=== PATIENT | female | born 2000 | race Caucasian/White ===

== ENCOUNTER 2023-05-19 16:24 | Outpatient (OUT) | payer MEDICAID, SELFPAY | END 2023-05-19 16:25 | disposition home or self-care (01) | LOC: LAB 16:30 | PROVIDERS: PCP Nurse Practitioner Primary Care; Visit Provider Obstetrics & Gynecology | DX: N92.6 Irregular menstruation, unspecified (principal) | CPT/HCPCS: 36415; 84702 ==

== ENCOUNTER 2023-06-20 10:40 | Outpatient (OUT) | payer MEDICAID, SELFPAY ==
--- NOTE | 2023-06-20 10:41 | US_ITS ---
[address] [address] Patient Name: JULIANA MICHELE MRN: [id number] date: 2000 Sex: F Assigned Patient Location: US Current Patient Location: LAB Accession/Order Number: [id number] Exam Date: 06/20/2023 10:41 Report Date: 06/20/2023 12:14 At the request of: LEA MATSON Procedure: US OB transvaginal EXAMINATION: US OB transvaginal HISTORY: MISSED MENSES COMPARISON: No relevant comparison available. FINDINGS: Cotto intrauterine gestation Gestational sac: 5.0 cm, 10 weeks 5 days CRL: 4.77 cm, 11 weeks 4 days Yolk sac: 5.8 mm Heart rate: 100 Cervix: Closed, 5.2 cm The uterus is normal, anteverted, anteflexed The ovaries are normal Clinical age: 9 weeks 4 days Clinical GILBERTO: 01/19/2024 Ultrasound age: 11 weeks 4 days Ultrasound GILBERTO: 01/05/2024 US/US OB transvaginal IMPRESSION: Viable cotto intrauterine gestation measuring 11 weeks 4 days Electronically authenticated by: BETTYE MICHELLE Date: 06/20/2023 12:14
== END 2023-06-20 10:41 | disposition home or self-care (01) ==
LOC: US 10:40
PROVIDERS: PCP Nurse Practitioner Primary Care; Visit Provider Obstetrics & Gynecology
DX: Z34.91 Encounter for supervision of normal pregnancy, unspecified, first trimester (principal); Z3A.11 11 weeks gestation of pregnancy
CPT/HCPCS: 36415; 76817; 83036; 84443; 85025; 86592; 86762; 86803; 86850; 86900; 86901; 87086; 87150; 87186; 87340; 87389

== ENCOUNTER 2023-06-20 11:38 | Outpatient (OUT) | payer MEDICAID, SELFPAY ==
[2023-06-20 12:20] LABS: Basophils Percent Auto 0.4 % (0.2-2.0); Eosinophils Absolute Auto 0.2 10^3/uL (0.0-0.7); Eosinophils Percent Auto 1.6 % (0.9-7.0); Hematocrit 38.7 % (36.0-48.0); Immature Granulocytes Abs Auto 0.04 10^3/uL (0.00-0.03); Immature Granulocytes Pct Auto 0.4 % (0.0-0.5); Lymphocytes Absolute Auto 2.6 10^3/uL (1.2-3.8); Lymphocytes Percent Auto 26.7 % (20.5-60.0); Mean Corpuscular Hemoglobin 23.4 pg (26.7-34.0); Mean Corpuscular Volume 75.6 fL (81.0-99.0); Mean Platelet Volume 10.3 fL (9.5-13.5); Monocytes Absolute Auto 0.6 10^3/uL (0.3-0.8); Monocytes Percent Auto 5.8 % (1.7-12.0); Neutrophils Absolute Auto 6.3 10^3/uL (1.4-6.5); Neutrophils Percent Auto 65.1 % (43.0-75.0); Platelet Count 365 10^3/uL (150-450); Red Blood Count 5.12 10^6/uL (4.20-5.40); Red Cell Distribution Width 15.9 % (11.0-15.0); White Blood Count 9.7 10^3/uL (4.0-11.0)
[2023-06-20 12:42] LABS: Estimated Average Glucose 108 mg/dL; Glycohemoglobin A1C 5.4 % (4.5-6.2)
[2023-06-20 12:50] LABS: Thyroid Stimulating Hormone 0.708 uIU/mL (0.358-3.740)
[2023-06-21 06:09] LABS: HBsAg Screen Negative (Negative); HCV Ab Non Reactive (Non Reactive); HIV Ab/p24 Ag Screen Non Reactive (Non Reactive)
[2023-06-21 07:09] LABS: Rubella Antibodies, IgG 2.23 index (Immune >0.99)
[2023-06-21 11:11] LABS: Rapid Plasma Reagin, Quant Non Reactive titer (NonRea<1:1)
== END 2023-06-20 11:39 | disposition home or self-care (01) ==
LOC: LAB 11:38
PROVIDERS: PCP Nurse Practitioner Primary Care; Visit Provider Obstetrics & Gynecology
DX: Z34.80 Encounter for supervision of other normal pregnancy, unspecified trimester (principal)
CPT/HCPCS: 36415; 83036; 84443; 85025; 86592; 86762; 86803; 86850; 86900; 86901; 87086; 87150; 87186; 87340; 87389

== ENCOUNTER 2023-07-23 21:29 | Outpatient (REF) | payer MEDICAID, SELFPAY ==
--- OUTSIDE RECORDS SUMMARY | 2023-07-23 21:34 | XMS_ITS | CCD ---
Author Name Unknown Address [address] [facility] [address] [place] [address] Organization [facility] Care Team Providers Care Top Trimmer Name Role Phone PAULO ., DR GRIGGS Admitting Unavailabl e HOY ., DR OSUNA Primary Care Unavailable KARASIK ., DR GRIGGS Attending Unavailabl e KARASIK ., DR GRIGGS Consulting Unavailabl e KARASIK ., DR GRIGGS Admitting Unavailabl e KARASIK ., DR GRIGGS Attending Unavailabl e HOY ., DR OSUNA Primary Care Unavailable KARASIK ., DR GRIGGS Attending Unavailabl e KARASIK ., DR GRIGGS Consulting Unavailabl e HOY ., DR OSUNA Primary Care Unavailable KARASIK ., DR GRIGGS Admitting Unavailabl e KARASIK ., DR GRIGGS Attending Unavailabl e KARASIK ., DR GRIGGS Consulting Unavailabl e HOY ., DR OSUNA Primary Care Unavailable KARASIK ., DR GRIGGS Admitting Unavailabl e KARASIK ., DR GRIGGS Admitting Unavailabl e KARASIK ., DR GRIGGS Attending Unavailabl e HOY ., DR OSUNA Primary Care Unavailable KARASIK ., DR GRIGGS Consulting Unavailabl e KARASIK ., DR GRIGGS Attending Unavailabl e KARASIK ., DR GRIGGS Consulting Unavailabl e HOY ., DR OSUNA Primary Care Unavailable KARASIK ., DR GRIGGS Admitting Unavailabl e HOY ., DR OSUNA Primary Care Unavailable KARASIK ., DR GRIGGS Consulting Unavailabl e KARASIK ., DR GRIGGS Attending Unavailabl e KARASIK ., DR GRIGGS Admitting Unavailabl e DANO ., DR TATE Consulting Unavailable AGUBOSINEYDA Sapp Consulting Unavailable KARASIK ., DR GRIGGS Procedure Practitioner Anuja vailable Problems Active Problems Problem Classification Problem Date Documented Date Episodic/Chronic Immunizations and screening for infectious disease (1 source) Encounter for screening for human papillomavirus (HPV); Translations: [ENC SCREENING HUMAN PAPILLOMAVIRUS] Onset: 11-19-2022 Episodic Other complications of ; puerperium affecting management of mother (1 source) Obesity complicating childbirth; Translations: [OBESITY COMPLICATING CHILDBIRTH] Onset: 03-29-2022 Chronic Other nutritional; endocrine; and metabolic disorders (1 source) Morbid (severe) obesity due to excess calories; Translations: [MORBID SEVERE OBES D/T EXCESS AC] Onset: 03-29-2022 Chronic Other screening for suspected conditions (not mental disorders or infectious disease) (12 sources) Encounter for screening for malignant neoplasm of cervix; Translations: [Encounter for screening for Streptococcus B] Onset: 12-12-2021 Episodic Unclassified (1 source) CONTACT W/AND (SUSP) EXPOS COVID-19; Translations: [CONTACT W/AND (SUSP) EXPOS COVID-19] Onset: 03-29-2022 Past or Other Problems Problem Classification Problem Date Documented Date Episodic/Chronic Abdominal pain (1 source) Unspecified abdominal pain; Translations: [UNSPECIFIED ABDOMINAL PAIN] Onset: 03-11-2022 Episodic Genitourinary symptoms and ill-defined conditions (4 sources) Unspecified symptoms and signs involving the genitourinary system; Translations: [UNS SYMPTOMS SIGNS INVLV SYSTEM] Onset: 12-04-2021 Episodic OB-related trauma to perineum and vulva (1 source) First degree perineal laceration during delivery; Translations: [FIRST DEG PERINEAL LAC DUR DELIV] Onset: 03-29-2022 Episodic Other complications of ; puerperium affecting management of mother (3 sources) Streptococcus B carrier state complicating childbirth; Translations: [STREP B FERNÁNDEZ STATE COMP CHILDBIRTH] Onset: 03-13-2022 Episodic Other complications of (4 sources) Other specified related conditions, third trimester; Translations: [OTH SPEC PREG RELATED COND 3RD TRI] Onset: 03-10-2022 Episodic Other complications of (1 source) Unspecified infection of urinary tract in , unspecified trimester; Translations: [UNS INF URINARY TRACT PREG UNS TRI] Onset: 02-22-2022 Episodic Other and delivery including normal (5 sources) Encounter for routine follow-up; Translations: [Single live ] Onset: 03-19-2022 Episodic Residual codes; unclassified (1 source) 39 weeks gestation of ; Translations: [39 WEEKS GESTATION OF ] Onset: 03-29-2022 Episodic Residual codes; unclassified (1 source) 38 weeks gestation of ; Translations: [38 WEEKS GESTATION OF ] Onset: 03-11-2022 Episodic Substance-related disorders (2 sources) Cannabis use, unspecified, uncomplicated; Translations: [Drug use complicating childbirth] Onset: 03-29-2022 Episodic Results Test Name Value Interpretation Reference Range Facil ity PAP ACOG PANEL 2: 21 to 29on 11-20-2022 . . [facility] Comment on above: Performed By: #### [id number] #### [facility] [address] [place] [address] Dr. Homero Damon Age Gdln ACOG Testing - [facility] Comment on above: Performed By: #### [id number] #### [facility] [address] [place] [address] Dr. Homero Damon DIAGNOSIS: Comment [facility] Comment on above: Result Comment: NEGA TIVE FOR INTRAEPITHELIAL LESION OR MALIGNANCY. Performed By: #### [id number] #### [facility] [address] [place] [address] Dr. Homero Damon Methodology: Comment [facility] Comment on above: Result Comment: This liquid based ThinPrep(R) pap test was screened with the use of an image guided system. Performed By: #### [id number] #### [facility] [address] [place] [address] Dr. Homero Damon Note: Comment [facility] Comment on above: Result Comment: The Pap smear is a screening test designed to aid in the detection of premalignant and malignant conditions of the uterine cervix. It is not a diagnostic procedure and should not be used as the sole means of detecting cervical cancer. Both false-positive and false-negative reports do occur. . Performed By: #### [id number] #### [facility] [address] [place] [address] Dr. Homero Damon Performed by: Comment [facility] Comment on above: Result Comment: Haris Alexis, Securities Clerk (ASCP) Performed By: #### [id number] #### [facility] [address] [place] [address] Dr. Homero Damon Reflex Criteria: Comment Normal [facility] Comment on above: Result Comment: The HPV DNA reflex criteria were not met with this specimen result therefore, no HPV testing was performed. . Performed By: #### [id number] #### [facility] [address] [place] [address] Dr. Homero Damon Specimen adequacy: Comment Normal [facility] Comment on above: Result Comment: Sati sfactory for evaluation. Endocervical and/or squamous metaplastic cells (endocervical component) are present. Performed By: #### [id number] #### [facility] [address] [place] [address] Dr. Homero Damon CANNABINOID (THC) CONFIRMATI ON, URINEon 03-19-2022 Cannabinoid Positive Abnormal [facility] Comment on above: Performed By: #### T HCCONF #### [facility] [address] [place] [address] Dr. Homero Damon Carboxy THC GC/MS Conf 47 ng/mL Normal Cutoff=[address] [facility] Comment on above: Performed By: #### T HCCONF #### [facility] [address] [place] [address] Dr. Homero Damon CBC AUTO DIFFon 03-15-2022 BASO # 0.0 103/ul Normal 0.0-0.[address] [facility] Comment on above: Performed By: #### C BC #### [facility] [address] [place] [address] Dr. Homero Damon Basophils/100 WBC (Bld) 0.2 % Normal 0.2-2.0 [facility] Comment on above: Performed By: #### C BC #### [facility] [address] [place] [address] Dr. Homero Damon EO # 0.2 103/ul Normal 0.0-0.7 [facility] Comment on above: Performed By: #### C BC #### [facility] [address] [place] [address] Dr. Homero Damon Eosinophils/100 WBC (Bld) 1.5 % Normal 0.9-7.[address] [facility] Comment on above: Performed By: #### C BC #### [facility] [address] [place] [address] Dr. Homero Damon Erythrocyte distribution width (RBC) [Ratio] 16.1 % Critically high 11.0-15.[address] [facility] Comment on above: Performed By: #### C BC #### [facility] [address] [place] [address] Dr. Homero Damon Hematocrit (Bld) [Volume fraction] 32.7 % Critically low 36.0-48.[address] [facility] Comment on above: Performed By: #### C BC #### [facility] [address] [place] [address] Dr. Homero Damon Hemoglobin (Bld) [Mass/Vol] 9.7 g/dL Critically low 12.0-16.[address] [facility] Comment on above: Performed By: #### C BC #### [facility] [address] [place] [address] Dr. Homero Damon IG # 0.04 10e3/ul Critically high 0.00-0.03 [facility] Comment on above: Performed By: #### C BC #### [facility] [address] [place] [address] Dr. Homero Damon IG % 0.4 % Normal 0.0-0.[address] [facility] Comment on above: Performed By: #### C BC #### [facility] [address] [place] [address] Dr. Homero Damon LYMPH # 3.5 103/ul Normal 1.2-3.[address] [facility] Comment on above: Performed By: #### C BC #### [facility] [address] [place] [address] Dr. Homero Damon Lymphocytes/100 WBC (Bld) 32.9 % Normal 20.5-60.[address] [facility] Comment on above: Performed By: #### C BC #### [facility] [address] [place] [address] Dr. Homero Damon MANUAL DIFF REQ NO Normal [facility] Comment on above: Performed By: #### C BC #### [facility] [address] [place] [address] Dr. Homero Damon MCH (RBC) [Entitic mass] 23.0 pg Critically low 26.7-34.[address] [facility] Comment on above: Performed By: #### C BC #### [facility] [address] [place] [address] Dr. Homero Damon MCHC (RBC) [Mass/Vol] 29.7 g/dL Critically low 29.9-35.[address] [facility] Comment on above: Performed By: #### C BC #### [facility] [address] [place] [address] Dr. Homero Damon MCV (RBC) [Entitic vol] 77.7 fL Critically low 81.0-99.[address] [facility] Comment on above: Performed By: #### C BC #### [facility] [address] [place] [address] Dr. Homero Damon MONO # 0.8 103/ul Normal 0.3-0.[address] [facility] Comment on above: Performed By: #### C BC #### [facility] [address] [place] [address] Dr. Homero Damon Monocytes/100 WBC (Bld) 7.1 % Normal 1.7-12.[address] [facility] Comment on above: Performed By: #### C BC #### [facility] [address] [place] [address] Dr. Homero Damon NEUT # 6.1 103/ul Normal 1.4-6.5 [facility] Comment on above: Performed By: #### C BC #### [facility] [address] [place] [address] Dr. Homero Damon Neutrophils/100 WBC (Bld) 57.9 % Normal 43.0-75.[address] [facility] Comment on above: Performed By: #### C BC #### [facility] [address] [place] [address] Dr. Homero Damon Platelet mean volume (Bld) [Entitic vol] 11.0 fL Normal 9.5-13.5 [facility] Comment on above: Performed By: #### C BC #### [facility] [address] [place] [address] Dr. Homero Damon PLT 253 103/ul Normal 150-450 [facility] Comment on above: Performed By: #### C BC #### [facility] [address] [place] [address] Dr. Homero Damon RBC 4.21 106/ul Normal 4.20-5.40 [facility] Comment on above: Performed By: #### C BC #### [facility] [address] [place] [address] Dr. Homero Damon WBC 10.6 103/ul Normal 4.0-11.0 [facility] Comment on above: Performed By: #### C BC #### [facility] [address] [place] [address] Dr. Homero Damon CBC AUTO DIFFon 03-13-2022 BASO # 0.0 103/ul Normal 0.0-0.1 [facility] Comment on above: Performed By: #### T HCCONF #### [facility] [address] [place] [address] Dr. Homero Damon Basophils/100 WBC (Bld) 0.3 % Normal 0.2-2.0 [facility] Comment on above: Performed By: #### T HCCONF #### [facility] [address] [place] [address] Dr. Homero Damon EO # 0.0 103/ul Normal 0.0-0.7 [facility] Comment on above: Performed By: #### T HCCONF #### [facility] [address] [place] [address] Dr. Homero Damon Eosinophils/100 WBC (Bld) 0.2 % Critically low 0.9-7.0 [facility] Comment on above: Performed By: #### T HCCONF #### [facility] [address] [place] [address] Dr. Homero Damon Erythrocyte distribution width (RBC) [Ratio] 16.0 % Critically high 11.0-15.[address] [facility] Comment on above: Performed By: #### T HCCONF #### [facility] [address] [place] [address] Dr. Homero Damon Hematocrit (Bld) [Volume fraction] 35.3 % Critically low 36.0-48.[address] [facility] Comment on above: Performed By: #### T HCCONF #### [facility] [address] [place] [address] Dr. Homero Damon Hemoglobin (Bld) [Mass/Vol] 11.0 g/dL Critically low 12.0-16.[address] [facility] Comment on above: Performed By: #### T HCCONF #### [facility] [address] [place] [address] Dr. Homero Damon IG # 0.04 10e3/ul Critically high 0.00-0.03 [facility] Comment on above: Performed By: #### T HCCONF #### [facility] [address] [place] [address] Dr. Homero Damon IG % 0.4 % Normal 0.0-0.[address] [facility] Comment on above: Performed By: #### T HCCONF #### [facility] [address] [place] [address] Dr. Homero Damon LYMPH # 2.5 103/ul Normal 1.2-3.[address] [facility] Comment on above: Performed By: #### T HCCONF #### [facility] [address] [place] [address] Dr. Homero Damon Lymphocytes/100 WBC (Bld) 26.4 % Normal 20.5-60.[address] [facility] Comment on above: Performed By: #### T HCCONF #### [facility] [address] [place] [address] Dr. Homero Damon MANUAL DIFF REQ NO Normal [facility] Comment on above: Performed By: #### T HCCONF #### [facility] [address] [address] [address] Homero Damon MCH (RBC) [Entitic mass] 23.5 pg Critically low 26.7-34.[address] [facility] Comment on above: Performed By: #### T HCCONF #### [facility] [address] [place] [address] Dr. Homero Damon MCHC (RBC) [Mass/Vol] 31.2 g/dL Normal 29.9-35.[address] [facility] Comment on above: Performed By: #### T HCCONF #### [facility] [address] [place] [address] Dr. Homero Damon MCV (RBC) [Entitic vol] 75.4 fL Critically low 81.0-99.[address] [facility] Comment on above: Performed By: #### T HCCONF #### [facility] [address] [place] [address] Dr. Homero Damon MONO # 0.6 103/ul Normal 0.3-0.[address] [facility] Comment on above: Performed By: #### T HCCONF #### [facility] [address] [place] [address] Dr. Homero Damon Monocytes/100 WBC (Bld) 6.4 % Normal 1.7-12.[address] [facility] Comment on above: Performed By: #### T HCCONF #### [facility] [address] [place] [address] Dr. Homero Damon NEUT # 6.4 103/ul Normal 1.4-6.5 [facility] Comment on above: Performed By: #### T HCCONF #### [facility] [address] [place] [address] Dr. Homero Damon Neutrophils/100 WBC (Bld) 66.3 % Normal 43.0-75.0 [facility] Comment on above: Performed By: #### T HCCONF #### [facility] [address] [place] [address] Dr. Homero Damon Platelet mean volume (Bld) [Entitic vol] 11.0 fL Normal 9.5-13.[address] [facility] Comment on above: Performed By: #### T HCCONF #### [facility] [address] [place] [address] Dr. Homero Damon PLT 312 103/ul Normal 150-450 [facility] Comment on above: Performed By: #### T HCCONF #### [facility] [address] [address] [address] Homero Damon RBC 4.68 106/ul Normal 4.20-5.40 [facility] Comment on above: Performed By: #### T HCCONF #### [facility] [address] [place] [address] Dr. Homero Damon WBC 9.6 103/ul Normal 4.0-11.[address] [facility] Comment on above: Performed By: #### T HCCONF #### [facility] [address] [place] [address] Dr. Homero Damon Covid-19 PCR (CVDTB)on 02-13 SARS-CoV-2 (COVID-19) RNA LORRAINE+probe Ql (Unsp spec) Not detected Normal NOT DETECTED [facility] Comment on above: Result Comment: When diagnostic testing is negative, the possibility of a false negative should be considered in the context of a patient's recent exposures and the presence of clinical signs and symptoms consistent with SARS-CoV-2. This test is not yet approved or cleared by the [place] FDA. When there are no FDA-approved or cleared tests available, and other criteria are met, FDA can make tests available under an emergency access mechanism called an Emergency Use Authorization (EUA). The EUA for this test is supported by the Night Coordinator of Health and Human Service's declaration that circumstances exist to justify the emergency use of in vitro diagnostics for the detection and/or diagnosis of the virus that causes COVID-19. This EUA will remain in effect for the duration of the COVID-19 declaration justifying emergency of IVDs, unless it is terminated or revoked by the FDA (after which the test may no longer be used). Performed By: #### C VDTBH #### [facility] [address] [place] [address] Dr. Homero Damon DRUG SCREEN RAPID (URINE)on 03-13-2022 AMP Negative Normal NEGATIVE [facility] Comment on above: Performed By: #### D RUGRPD #### [facility] [address] [place] [address] Dr. Homero Damon BAR Negative Normal NEGATIVE [facility] Comment on above: Performed By: #### D RUGRPD #### [facility] [address] [place] [address] Dr. Homero Damon BUP Negative Normal NEGATIVE [facility] Comment on above: Performed By: #### D RUGRPD #### [facility] [address] [place] [address] Dr. Homero Damon BZO Negative Normal NEGATIVE [facility] Comment on above: Performed By: #### D RUGRPD #### [facility] [address] [place] [address] Dr. Homero Damon MADHURI Negative Normal NEGATIVE [facility] Comment on above: Performed By: #### D RUGRPD #### [facility] [address] [place] [address] Dr. Homero Damon CUT-OFFS SEE BELOW Normal [facility] Comment on above: Result Comment: AMP (Amphetamine): 500ng/mL, BAR (Barbituates): 200 ng/mL, BZO (Benzodiazepines): 150 ng/mL, BUP (Buprenorphine): 10 ng/mL, MADHURI (Cocaine): 150 ng/mL, mAMP (Methamphetamine): 500 ng/mL, MTD (Methadone): 200 ng/mL, OPI (Opiates): 100 ng/mL, OXY (Oxycodone): 100 ng/mL, PCP (Phencyclidine): 25 ng/mL, PPX (Propoxyphene): 300 ng/mL, THC (Cannabinoids): 50 ng/mL, TCA (Trycyclic Antidepressants): 300 ng/mL Performed By: #### D RUGRPD #### [facility] [address] [place] [address] Dr. Homero Damon DRUG CUT HEADER DRUG CLASS TEST SYST EM CUT-OFF CONCENTRATIONS ARE FOLLOWS: Normal [facility] Comment on above: Performed By: #### D RUGRPD #### [facility] [address] [address] [address] Homero Damon mAMP Negative Normal NEGATIVE [facility] Comment on above: Performed By: #### D RUGRPD #### [facility] [address] [place] [address] Dr. Homero Damon MTD Negative Normal NEGATIVE [facility] Comment on above: Performed By: #### D RUGRPD #### [facility] [address] [address] [address] Homero Damon OPI Negative Normal NEGATIVE [facility] Comment on above: Performed By: #### D RUGRPD #### [facility] [address] [place] [address] Dr. Homero Damon OXY Negative Normal NEGATIVE [facility] Comment on above: Performed By: #### D RUGRPD #### [facility] [address] [place] [address] Dr. Homero Damon PCP Negative Normal NEGATIVE [facility] Comment on above: Performed By: #### D RUGRPD #### [facility] [address] [place] [address] Dr. Homero Damon PPX Negative Normal NEGATIVE [facility] Comment on above: Performed By: #### D RUGRPD #### [facility] [address] [place] [address] Dr. Homero Damon TCA Negative Normal NEGATIVE [facility] Comment on above: Performed By: #### D RUGRPD #### [facility] [address] [place] [address] Dr. Homero Damon THC Positive Abnormal NEGATIVE [facility] Comment on above: Performed By: #### D RUGRPD #### [facility] [address] [place] [address] Dr. Homero Damon TYPE AND SCREENon 03-13-2022 TYPE AND SCREEN Negative Normal [facility] Comment on above: Performed By: #### T HCCONF #### [facility] [address] [place] [address] Dr. Homero Damon UA (CLEAN/CATCH) LANGUAGE ASSISTANT/MICRO I F IND.on 03-10-2022 Bilirubin Ql (U) Negative Normal NEGATIVE [facility] Comment on above: Performed By: #### U ACSIND #### [facility] [address] [place] [address] Dr. Homero Damon Clarity (U) CLEAR Normal CLEAR [facility] Comment on above: Performed By: #### U ACSIND #### [facility] [address] [address] [address] Homero Damon Color (U) YELLOW Normal YELLOW [facility] Comment on above: Performed By: #### U ACSIND #### [facility] [address] [address] [address] Homero Damon Glucose Ql (U) Negative Normal NEGATIVE [facility] Comment on above: Performed By: #### U ACSIND #### [facility] [address] [place] [address] Dr. Homero Damon Hemoglobin Ql (U) Negative Normal NEGATIVE [facility] Comment on above: Performed By: #### U ACSIND #### [facility] [address] [place] [address] Dr. Homero Damon Ketones Ql (U) Negative Normal NEGATIVE [facility] Comment on above: Performed By: #### U ACSIND #### [facility] [address] [address] [address] Homero Damon LEUKOCYTES Negative Normal NEGATIVE [facility] Comment on above: Performed By: #### U ACSIND #### [facility] [address] [address] [address] Homero Damon Nitrite Ql (U) Negative Normal NEGATIVE [facility] Comment on above: Performed By: #### U ACSIND #### [facility] [address] [address] [address] Homero Damon pH (U) 6.0 [pH] Normal 5-[address] [facility] Comment on above: Performed By: #### U ACSIND #### [facility] [address] [place] [address] Dr. Homero Damon SPEC GRAVITY 1.025 Normal 1.005-<=1.025 [facility] Comment on above: Performed By: #### U ACSIND #### [facility] [address] [address] [address] Homero Damon UA PROTEIN Negative Normal NEGATIVE/ TRACE [facility] Comment on above: Performed By: #### U ACSIND #### [facility] [address] [address] [address] Homero Damon UR MICRO IND NOT INDICATED Normal [facility] Comment on above: Performed By: #### U ACSIND #### [facility] [address] [address] [address] Homero Damon Urobilinogen Qn (U) 1.0 {Saad'U}/dL Normal 0.2 - 1.[address] [facility] Comment on above: Performed By: #### U ACSIND #### [facility] [address] [place] [address] Dr. Homero Damon GROUP B STREP CULTUREon 02-11 S. agalactiae Ag Ql (Unsp spec) Culture Observations: Called Group B Strep to Millie Armando, Bridge Attacher on 02/25 @ 0917 Isolate 1 Streptococcus agalactiae Moderate growth of ORGANISM 1 Streptococcus agalactiae ANTIBIOTIC M.I.C RX STATUS Benzylpenicillin <=0.06 S F Ampicillin <=0.25 S F Cefotaxime <=0.12 S F Ceftriaxone <=0.12 S F Levofloxacin 0.5 S F Erythromycin >=8 R F Clindamycin >=1 R F Linezolid <=2 S F Vancomycin 0.5 S F Tetracycline >=16 R F Normal The [facility] Comment on above: Performed By: #### T HCCONF #### [facility] [address] [place] [address] Dr. Homero Damon CULTURE URINEon 02-23-2022 CULTURE URINE Isolate 1 Klebsiella pneumoniae >100,000 cfu/mL of ORGANISM 1 Klebsiella pneumoniae ANTIBIOTIC M.I.C RX STATUS Ampicillin 16 R F Ampicillin/Sulbactam <=2 S F Piperacillin/Tazobacta m <=4 S F Cefazolin <=4 S F Ceftazidime <=1 S F Ceftriaxone <=1 S F Ertapenem <=0.5 S F Imipenem <=0.25 S F Amikacin <=2 S F Gentamicin <=1 S F Tobramycin <=1 S F Ciprofloxacin <=0.25 S F Levofloxacin <=0.12 S F Nitrofurantoin <=16 S F Trimethoprim/Sulfameth oxazole <=20 S F Normal The [facility] Comment on above: Performed By: #### U RCX #### [facility] [address] [place] [address] Dr. Homero Damon UA RANDOM W/MICROSCOPICon BACTERIA LARGE Abnormal NONE SEEN [facility] Comment on above: Performed By: #### U AMIC #### [facility] [address] [place] [address] Dr. Homero Damon Bilirubin Ql (U) Negative Normal NEGATIVE [facility] Comment on above: Performed By: #### U AMIC #### [facility] [address] [place] [address] Dr. Homero Damon CAST NONE SEEN Normal NONE SEEN [facility] Comment on above: Performed By: #### U AMIC #### [facility] [address] [place] [address] Dr. Homero Damon Clarity (U) CLEAR Normal CLEAR [facility] Comment on above: Performed By: #### U AMIC #### [facility] [address] [place] [address] Dr. Homero Damon Color (U) LT. YELLOW Normal YELLOW The [facility] Comment on above: Performed By: #### U AMIC #### [facility] [address] [place] [address] Dr. Homero Damon Crystals LM Nom (Urine sed) NONE SEEN Normal NONE SEEN The [facility] Comment on above: Performed By: #### U AMIC #### [facility] [address] [place] [address] Dr. Homero Damon Epithelial cells LM Ql (Urine sed) FEW Abnormal NONE SEEN /RARE [facility] Comment on above: Performed By: #### U AMIC #### [facility] [address] [place] [address] Dr. Homero Damon Glucose Ql (U) Negative Normal NEGATIVE [facility] Comment on above: Performed By: #### U AMIC #### [facility] [address] [address] [address] Homero Damon Hemoglobin Ql (U) Negative Normal NEGATIVE [facility] Comment on above: Performed By: #### U AMIC #### [facility] [address] [address] [address] Homero Damon Ketones Ql (U) TRACE Abnormal NEGATIVE [facility] Comment on above: Performed By: #### U AMIC #### [facility] [address] [address] [address] Homero Damon LEUKOCYTES TRACE Abnormal NEGATIVE The [facility] Comment on above: Performed By: #### U AMIC #### [facility] [address] [place] [address] Dr. Homero Damon MUCOUS NONE SEEN Normal NONE SEEN [facility] Comment on above: Performed By: #### U AMIC #### [facility] [address] [address] [address] Homero Damon Nitrite Ql (U) Negative Normal NEGATIVE [facility] Comment on above: Performed By: #### U AMIC #### [facility] [address] [address] [address] Homero Damon pH (U) 6.0 [pH] Normal 5-[address] [facility] Comment on above: Performed By: #### U AMIC #### [facility] [address] [address] [address] Homero Damon RBC NONE SEEN Abnormal 0-2 [facility] Comment on above: Performed By: #### U AMIC #### [facility] [address] [address] [address] Homero Damon SPEC GRAVITY 1.025 Normal 1.005-<=1.025 [facility] Comment on above: Performed By: #### U AMIC #### [facility] [address] [place] [address] Dr. Homero Damon UA PROTEIN Negative Normal NEGATIVE/ TRACE [facility] Comment on above: Performed By: #### U AMIC #### [facility] [address] [place] [address] Dr. Homero Damon Urobilinogen Qn (U) 0.2 {Saad'U}/dL Normal 0.2 - 1.[address] [facility] Comment on above: Performed By: #### U AMIC #### [facility] [address] [place] [address] Dr. Homero Damon WBC 5-10 Abnormal NONE SEEN The [facility] Comment on above: Performed By: #### U AMIC #### [facility] [address] [place] [address] Dr. Homero Damon GLUCOSE - 1HRon 12-12-2021 Glucose [Mass/Vol] 128 mg/dL Critically high 74-106 [facility] Comment on above: Performed By: #### G LU1HR #### [facility] [address] [place] [address] Dr. Homero Damon HEMOGRAM AND PLATELon 2021 Hematocrit (Bld) [Volume fraction] 38.8 % Normal 36.0-48.[address] [facility] Comment on above: Performed By: #### H H #### [facility] [address] [place] [address] Dr. Homero Damon Hemoglobin (Bld) [Mass/Vol] 12.3 g/dL Normal 12.0-16.[address] [facility] Comment on above: Performed By: #### H H #### [facility] [address] [place] [address] Dr. Homero Damon MCH (RBC) [Entitic mass] 25.8 pg Critically low 26.7-34.[address] [facility] Comment on above: Performed By: #### H H #### [facility] [address] [place] [address] Dr. Homero Damon MCHC (RBC) [Mass/Vol] 31.7 g/dL Normal 29.9-35.[address] [facility] Comment on above: Performed By: #### H H #### [facility] [address] [place] [address] Dr. Homero Damon MCV (RBC) [Entitic vol] 81.3 fL Normal 81.0-99.[address] [facility] Comment on above: Performed By: #### H H #### [facility] [address] [place] [address] Dr. Homero Damon PLT 304 103/ul Normal 150-450 [facility] Comment on above: Performed By: #### H H #### [facility] [address] [place] [address] Dr. Homero Damon RBC 4.77 106/ul Normal 4.20-5.[address] [facility] Comment on above: Performed By: #### H H #### [facility] [address] [place] [address] Dr. Homero Damon WBC 9.9 103/ul Normal 4.0-11.[address] [facility] Comment on above: Performed By: #### H H #### [facility] [address] [place] [address] Dr. Homero Damon CULTURE URINEon 12-06-2021 CULTURE URINE Isolate 1 Klebsiella pneumoniae >100,000 cfu/ml of ORGANISM 1 Klebsiella pneumoniae ANTIBIOTIC M.I.C RX STATUS Ampicillin 16 R F Ampicillin/Sulbactam 4 S F Piperacillin/Tazobacta m <=4 S F Cefazolin <=4 S F Ceftazidime <=1 S F Ceftriaxone <=1 S F Ertapenem <=0.5 S F Imipenem <=0.25 S F Amikacin <=2 S F Gentamicin <=1 S F Tobramycin <=1 S F Ciprofloxacin <=0.25 S F Levofloxacin <=0.12 S F Nitrofurantoin 64 I F Trimethoprim/Sulfameth oxazole <=20 S F Normal The [facility] Comment on above: Performed By: #### T HCCONF #### [facility] [address] [place] [address] Dr. Homero Damon Encounters Encounter Date Encounter Type Care Provider Facility Start: 06-20-2023 End: 06-20-2023 ambulatory Not Available Start: 11-13-2022 End: 11-13-[address] INDU BATES . Facility: Start: 03-19-2022 End: 03-19-[address] INDU BATES . Facility:[facility] Start: 03-13-2022 End: 03-15-2022 Evaluation and management of inpatient DR THAO COLLAZO . Facility:[facility] Start: 03-10-2022 End: 03-10-[address] INDU BATES . Facility:[facility] Start: 02-21-2022 End: 02-21-[address] INDU BATES . Facility:[facility] Start: 12-12-2021 End: 12-13-[address] INDU BATES . Facility:[facility] Start: 12-04-2021 End: 12-04-[address] INDU BATES . Facility:[facility] Procedures Date Procedure Procedure Detail Performing Clinician Start: 03-13-2022 Delivery of Products of Conception, External Approach DR INDU BATES . Start: 03-13-2022 Drainage of Amniotic Fluid, Therapeutic from Products of Conception, Via Natural or Artificial Opening DR INDU BATES . Start: 03-13-2022 Repair Perineum Skin , External Approach DR INDU BATES . Start: 03-12-2022 Introduction of Horm one into Female Reproductive, Via Natural or Artificial Opening DR INDU BATES . Payers Date Payer Category Payer Medicaid [id number] 2022 Medicaid [id number] 2000 Unknown [id number] 2.16.84 [id number] 2000 Unknown [id number] 2.16.84 [id number] 2000 Unknown [id number] 2.16.84 [id number] 2000 Unknown [id number] 2.16.84 [id number] 2000 Unknown [id number] 2.16.84 [id number] 2000 Unknown [id number] 2.16.84 [id number] 2000 Unknown [id number] 2.16.84 [id number] 2000 Unknown [id number] [id number] 1959 Unknown [id number] Summary Purpose Family History No Family History Records FoundNo Family History Records Found Advance Directives No Advanced Directives Records FoundNo Advanced Directives Records Found Additional Source Comments INFORMATION SOURCE (unrecogn ized section and content) DATE CREATED AUTHOR 11/20/2022 [facility] DATE CREATED AUTHOR AUTHOR'S ORGANIZ ATION 06/22/2023 [facility] FOR RECORDS PERTAINING TO PATIENTS WHO ARE OR HAVE BEEN ENROLLED IN A CHEMICAL DEPENDENCY/SUBSTANCEABUSE PROGRAM, SOME INFORMATION MAY BE OMITTED. This clinical summary was aggregated from multiple sources. Caution should be exercised in using it in the provision of clinical care. This summary normalizes information from multiple sources, and as a consequence, information in this document may materially change the coding, format and clinical context of patient data. In addition, data may be omitted in some cases. CLINICAL DECISIONS SHOULD BE BASED ON THE PRIMARY CLINICAL RECORDS. [facility] [employer] [facility]. provides no warranty or guarantee of the accuracy or completeness of information in this document.
[2023-07-28 17:10] LABS: Age Gdln ACOG Testing Note (.); IGP, rfx Aptima HPV ASCU Note (.)
== END 2023-07-23 21:30 | disposition home or self-care (01) ==
LOC: LAB 21:29
PROVIDERS: PCP Nurse Practitioner Primary Care; Visit Provider Obstetrics & Gynecology
DX: Z01.419 Encounter for gynecological examination (general) (routine) without abnormal findings (principal)
CPT/HCPCS: G0145

== ENCOUNTER 2023-07-24 11:06 | Outpatient (OUT) | payer MEDICAID, SELFPAY ==
--- OUTSIDE RECORDS SUMMARY | 2023-07-24 11:09 | XMS_ITS | CCD ---
Author Name Unknown Address [address] [facility] [address] [place] [address] Organization [facility] Care Team Providers Care Mounter Saxophones Name Role Phone PAULO ., DR GRIGGS [...] 2: 21 to 29on 11-20-2022 . . [facility] Comment on above: Performed By: #### [id number] #### [facility] [address] [place] [address] Dr. Homero Damon Age Gdln ACOG Testing - [facility] Comment on above: Performed By: #### [id number] #### [facility] [address] [place] [address] Dr. Homero Damon DIAGNOSIS: Comment [facility] Comment on above: Result Comment: NEGA TIVE FOR INTRAEPITHELIAL LESION OR MALIGNANCY. Performed By: #### [id number] #### [facility] [address] [place] [address] Dr. Homero Damon Methodology: Comment [facility] Comment on above: Result Comment: This liquid based ThinPrep(R) pap test was screened with the use of an image guided system. Performed By: #### [id number] #### [facility] [address] [place] [address] Dr. Homero Damon Note: Comment [facility] Comment on above: Result Comment: The Pap smear is a screening test designed to aid in the detection of premalignant and malignant conditions of the uterine cervix. It is not a diagnostic procedure and should not be used as the sole means of detecting cervical cancer. Both false-positive and false-negative reports do occur. . Performed By: #### [id number] #### [facility] [address] [place] [address] Dr. Homero Damon Performed by: Comment [facility] Comment on above: Result Comment: Haris Alexis, Packing Attendant (ASCP) Performed By: #### [id number] #### [facility] [address] [place] [address] Dr. Homero Damon Reflex Criteria: Comment Normal [facility] Comment on above: Result Comment: The HPV DNA reflex criteria were not met with this specimen result therefore, no HPV testing was performed. . Performed By: #### [id number] #### [facility] [address] [place] [address] Dr. Homero Damon Specimen adequacy: Comment Normal [facility] Comment on above: Result Comment: Sati sfactory for evaluation. Endocervical and/or squamous metaplastic cells (endocervical component) are present. Performed By: #### [id number] #### [facility] [address] [place] [address] Dr. Homero Damon CANNABINOID (THC) CONFIRMATI ON, URINEon 03-19-2022 Cannabinoid Positive [facility] Comment on above: Performed By: #### T HCCONF #### [facility] [address] [place] [address] Dr. Homero Damon Carboxy THC GC/MS Conf 47 ng/mL Normal Cutoff=10 [facility] Comment on above: Performed By: #### T HCCONF #### [facility] [address] [place] [address] Dr. Homero Damon CBC AUTO DIFFon 03-15-2022 BASO # 0.0 103/ul Normal 0.0-0.1 [facility] Comment on above: Performed By: #### C BC #### [facility] [address] [place] [address] Dr. Homero Damon Basophils/100 WBC (Bld) 0.2 % Normal 0.2-2.0 [facility] Comment on above: Performed By: #### C BC #### [facility] [address] [place] [address] Dr. Homero Damon EO # 0.2 103/ul Normal 0.0-0.7 [facility] Comment on above: Performed By: #### C BC #### [facility] [address] [place] [address] Dr. Homero Damon Eosinophils/100 WBC (Bld) 1.5 % Normal 0.9-7.0 [facility] Comment on above: Performed By: #### C BC #### [facility] [address] [place] [address] Dr. Homero Damon Erythrocyte distribution width (RBC) [Ratio] 16.1 % Critically high 11.0-15.0 [facility] Comment on above: Performed By: #### C BC #### [facility] [address] [place] [address] Dr. Homero Damon Hematocrit (Bld) [Volume fraction] 32.7 % Critically low 36.0-48.0 [facility] Comment on above: Performed By: #### C BC #### [facility] [address] [place] [address] Dr. Homero Damon Hemoglobin (Bld) [Mass/Vol] 9.7 g/dL Critically low 12.0-16.0 [facility] Comment on above: Performed By: #### C BC #### [facility] [address] [place] [address] Dr. Homero Damon IG # 0.04 10e3/ul Critically high 0.00-0.03 [facility] Comment on above: Performed By: #### C BC #### [facility] [address] [place] [address] Dr. Homero Damon IG % 0.4 % Normal 0.0-0.5 [facility] Comment on above: Performed By: #### C BC #### [facility] [address] [place] [address] Dr. Homero Damon LYMPH # 3.5 103/ul Normal 1.2-3.8 [facility] Comment on above: Performed By: #### C BC #### [facility] [address] [place] [address] Dr. Homero Damon Lymphocytes/100 WBC (Bld) 32.9 % Normal 20.5-60.0 [facility] Comment on above: Performed By: #### C BC #### [facility] [address] [place] [address] Dr. Homero Damon MANUAL DIFF REQ NO Normal [facility] Comment on above: Performed By: #### C BC #### [facility] [address] [place] [address] Dr. Homero Damon MCH (RBC) [Entitic mass] 23.0 pg Critically low 26.7-34.0 [facility] Comment on above: Performed By: #### C BC #### [facility] [address] [place] [address] Dr. Homero Damon MCHC (RBC) [Mass/Vol] 29.7 g/dL Critically low 29.9-35.2 [facility] Comment on above: Performed By: #### C BC #### [facility] [address] [place] [address] Dr. Homero Damon MCV (RBC) [Entitic vol] 77.7 fL Critically low 81.0-99.0 [facility] Comment on above: Performed By: #### C BC #### [facility] [address] [place] [address] Dr. Homero Damon MONO # 0.8 103/ul Normal 0.3-0.8 [facility] Comment on above: Performed By: #### C BC #### [facility] [address] [place] [address] Dr. Homero Damon Monocytes/100 WBC (Bld) 7.1 % Normal 1.7-12.0 [facility] Comment on above: Performed By: #### C BC #### [facility] [address] [place] [address] Dr. Homero Damon NEUT # 6.1 103/ul Normal 1.4-6.5 [facility] Comment on above: Performed By: #### C BC #### [facility] [address] [place] [address] Dr. Homero Damon Neutrophils/100 WBC (Bld) 57.9 % Normal 43.0-75.0 [facility] Comment on above: Performed By: #### C BC #### [facility] [address] [place] [address] Dr. Homero Damon Platelet mean volume (Bld) [Entitic vol] 11.0 fL Normal 9.5-13.5 [facility] Comment on above: Performed By: #### C BC #### [facility] [address] [place] [address] Dr. Homero Damon PLT 253 103/ul Normal 150-450 [facility] Comment on above: Performed By: #### C BC #### [facility] [address] [place] [address] Dr. Homero Damon RBC 4.21 106/ul Normal 4.20-5.40 [facility] Comment on above: Performed By: #### C BC #### [facility] [address] [place] [address] Dr. Homero Damon WBC 10.6 103/ul Normal 4.0-11.0 [facility] Comment on above: Performed By: #### C BC #### [facility] [address] [place] [address] Dr. Homero Damon CBC AUTO DIFFon 03-13-2022 BASO # 0.0 103/ul Normal 0.0-0.1 [facility] Comment on above: Performed By: #### T HCCONF #### [facility] [address] [place] [address] Dr. Homero Damon Basophils/100 WBC (Bld) 0.3 % Normal 0.2-2.0 [facility] Comment on above: Performed By: #### T HCCONF #### [facility] [address] [place] [address] Dr. Homero Damon EO # 0.0 103/ul Normal 0.0-0.7 [facility] Comment on above: Performed By: #### T HCCONF #### [facility] [address] [place] [address] Dr. Homero Damon Eosinophils/100 WBC (Bld) 0.2 % Critically low 0.9-7.0 [facility] Comment on above: Performed By: #### T HCCONF #### [facility] [address] [place] [address] Dr. Homero Damon Erythrocyte distribution width (RBC) [Ratio] 16.0 % Critically high 11.0-15.0 [facility] Comment on above: Performed By: #### T HCCONF #### [facility] [address] [place] [address] Dr. Homero Damon Hematocrit (Bld) [Volume fraction] 35.3 % Critically low 36.0-48.0 [facility] Comment on above: Performed By: #### T HCCONF #### [facility] [address] [place] [address] Dr. Homero Damon Hemoglobin (Bld) [Mass/Vol] 11.0 g/dL Critically low 12.0-16.0 [facility] Comment on above: Performed By: #### T HCCONF #### [facility] [address] [place] [address] Dr. Homero Damon IG # 0.04 10e3/ul Critically high 0.00-0.03 [facility] Comment on above: Performed By: #### T HCCONF #### [facility] [address] [place] [address] Dr. Homero Damon IG % 0.4 % Normal 0.0-0.5 [facility] Comment on above: Performed By: #### T HCCONF #### [facility] [address] [place] [address] Dr. Homero Damon LYMPH # 2.5 103/ul Normal 1.2-3.8 [facility] Comment on above: Performed By: #### T HCCONF #### [facility] [address] [place] [address] Dr. Homero Damon Lymphocytes/100 WBC (Bld) 26.4 % Normal 20.5-60.0 [facility] Comment on above: Performed By: #### T HCCONF #### [facility] [address] [place] [address] Dr. Homero Damon MANUAL DIFF REQ NO Normal [facility] Comment on above: Performed By: #### T HCCONF #### [facility] [address] [address] [address] Homero Damon MCH (RBC) [Entitic mass] 23.5 pg Critically low 26.7-34.0 [facility] Comment on above: Performed By: #### T HCCONF #### [facility] [address] [place] [address] Dr. Homero Damno MCHC (RBC) [Mass/Vol] 31.2 g/dL Normal 29.9-35.2 [facility] Comment on above: Performed By: #### T HCCONF #### [facility] [address] [place] [address] Dr. Homero Damon MCV (RBC) [Entitic vol] 75.4 fL Critically low 81.0-99.0 [facility] Comment on above: Performed By: #### T HCCONF #### [facility] [address] [place] [address] Dr. Homero Damon MONO # 0.6 103/ul Normal 0.3-0.8 [facility] Comment on above: Performed By: #### T HCCONF #### [facility] [address] [place] [address] Dr. Homero Damon Monocytes/100 WBC (Bld) 6.4 % Normal 1.7-12.0 [facility] Comment on above: Performed By: #### T HCCONF #### [facility] [address] [place] [address] Dr. Homero Damon NEUT # 6.4 103/ul Normal 1.4-6.5 [facility] Comment on above: Performed By: #### T HCCONF #### [facility] [address] [place] [address] Dr. Homero Damon Neutrophils/100 WBC (Bld) 66.3 % Normal 43.0-75.0 [facility] Comment on above: Performed By: #### T HCCONF #### [facility] [address] [place] [address] Dr. Homero Damon Platelet mean volume (Bld) [Entitic vol] 11.0 fL Normal 9.5-13.5 [facility] Comment on above: Performed By: #### T HCCONF #### [facility] [address] [place] [address] Dr. Homero Damon PLT 312 103/ul Normal 150-450 [facility] Comment on above: Performed By: #### T HCCONF #### [facility] [address] [address] [address] Homero Damon RBC 4.68 106/ul Normal 4.20-5.40 [facility] Comment on above: Performed By: #### T HCCONF #### [facility] [address] [place] [address] Dr. Homero Damon WBC 9.6 103/ul Normal 4.0-11.0 [facility] Comment on above: Performed By: #### T HCCONF #### [facility] [address] [place] [address] Dr. Homero Damon Covid-19 PCR (CVDTB)on 02-13 SARS-CoV-2 (COVID-19) RNA LORRAINE+probe Ql (Unsp spec) Not detected Normal NOT DETECTED [facility] Comment on above: Result Comment: When diagnostic [...] for this test is supported by the Director Of Operations For Therapy of Health and Human Service's declaration that [...] used). Performed By: #### C VDTBH #### [facility] [address] [place] [address] Dr. Homero Damon DRUG SCREEN RAPID (URINE)on 03-13-2022 AMP Negative Normal NEGATIVE [facility] Comment on above: Performed By: #### D RUGRPD #### [facility] [address] [place] [address] Dr. Homero Damon BAR Negative Normal NEGATIVE [facility] Comment on above: Performed By: #### D RUGRPD #### [facility] [address] [place] [address] Dr. Homero Damon BUP Negative Normal NEGATIVE [facility] Comment on above: Performed By: #### D RUGRPD #### [facility] [address] [place] [address] Dr. Homero Damon BZO Negative Normal NEGATIVE [facility] Comment on above: Performed By: #### D RUGRPD #### [facility] [address] [place] [address] Dr. Homero Damon MADHURI Negative Normal NEGATIVE [facility] Comment on above: Performed By: #### D RUGRPD #### [facility] [address] [place] [address] Dr. Homero Damon CUT-OFFS SEE BELOW Normal [facility] Comment on above: Result Comment: AMP (Amphetamine): 500ng/mL, BAR (Barbituates): 200 ng/mL, BZO (Benzodiazepines): 150 ng/mL, BUP (Buprenorphine): 10 ng/mL, MADHURI (Cocaine): 150 ng/mL, mAMP (Methamphetamine): 500 ng/mL, MTD (Methadone): 200 ng/mL, OPI (Opiates): 100 ng/mL, OXY (Oxycodone): 100 ng/mL, PCP (Phencyclidine): 25 ng/mL, PPX (Propoxyphene): 300 ng/mL, THC (Cannabinoids): 50 ng/mL, TCA (Trycyclic Antidepressants): 300 ng/mL Performed By: #### D RUGRPD #### [facility] [address] [place] [address] Dr. Homero Damon DRUG CUT HEADER DRUG CLASS TEST SYST EM CUT-OFF CONCENTRATIONS ARE FOLLOWS: Normal [facility] Comment on above: Performed By: #### D RUGRPD #### [facility] [address] [address] [address] Homero Damon mAMP Negative Normal NEGATIVE [facility] Comment on above: Performed By: #### D RUGRPD #### [facility] [address] [place] [address] Dr. Homero Damon MTD Negative Normal NEGATIVE [facility] Comment on above: Performed By: #### D RUGRPD #### [facility] [address] [address] [address] Homero Damon OPI Negative Normal NEGATIVE [facility] Comment on above: Performed By: #### D RUGRPD #### [facility] [address] [place] [address] Dr. Homero Damon OXY Negative Normal NEGATIVE [facility] Comment on above: Performed By: #### D RUGRPD #### [facility] [address] [place] [address] Dr. Homero Damon PCP Negative Normal NEGATIVE [facility] Comment on above: Performed By: #### D RUGRPD #### [facility] [address] [place] [address] Dr. Homero Damon PPX Negative Normal NEGATIVE [facility] Comment on above: Performed By: #### D RUGRPD #### [facility] [address] [place] [address] Dr. Homero Damon TCA Negative Normal NEGATIVE [facility] Comment on above: Performed By: #### D RUGRPD #### [facility] [address] [place] [address] Dr. Homero Damon THC Positive Abnormal NEGATIVE [facility] Comment on above: Performed By: #### D RUGRPD #### [facility] [address] [place] [address] Dr. Homero Damon TYPE AND SCREENon 03-13-2022 TYPE AND SCREEN Negative Normal [facility] Comment on above: Performed By: #### T HCCONF #### [facility] [address] [place] [address] Dr. Homero Damon UA (CLEAN/CATCH) MACHINERY DISMANTLER/MICRO I F IND.on 03-10-2022 Bilirubin Ql (U) Negative Normal NEGATIVE [facility] Comment on above: Performed By: #### U ACSIND #### [facility] [address] [place] [address] Dr. Homero Damon Clarity (U) CLEAR Normal CLEAR [facility] Comment on above: Performed By: #### U ACSIND #### [facility] [address] [address] [address] Homero Damon Color (U) YELLOW Normal YELLOW [facility] Comment on above: Performed By: #### U ACSIND #### [facility] [address] [address] [address] Homero Damon Glucose Ql (U) Negative Normal NEGATIVE [facility] Comment on above: Performed By: #### U ACSIND #### [facility] [address] [place] [address] Dr. Homero Damon Hemoglobin Ql (U) Negative Normal NEGATIVE [facility] Comment on above: Performed By: #### U ACSIND #### [facility] [address] [place] [address] Dr. Homero Damon Ketones Ql (U) Negative Normal NEGATIVE [facility] Comment on above: Performed By: #### U ACSIND #### [facility] [address] [address] [address] Homero Damon LEUKOCYTES Negative Normal NEGATIVE [facility] Comment on above: Performed By: #### U ACSIND #### [facility] [address] [address] [address] Homero Damon Nitrite Ql (U) Negative Normal NEGATIVE [facility] Comment on above: Performed By: #### U ACSIND #### [facility] [address] [address] [address] Homero Damon pH (U) 6.0 [pH] Normal 5-9 [facility] Comment on above: Performed By: #### U ACSIND #### [facility] [address] [place] [address] Dr. Homero Damon SPEC GRAVITY 1.025 Normal 1.005-<=1.025 [facility] Comment on above: Performed By: #### U ACSIND #### [facility] [address] [address] [address] Homero Damon UA PROTEIN Negative Normal NEGATIVE/ TRACE [facility] Comment on above: Performed By: #### U ACSIND #### [facility] [address] [address] [address] Homero Damon UR MICRO IND NOT INDICATED Normal [facility] Comment on above: Performed By: #### U ACSIND #### [facility] [address] [address] [address] Homero Damon Urobilinogen Qn (U) 1.0 {Saad'U}/dL Normal 0.2 - 1.0 [facility] Comment on above: Performed By: #### U ACSIND #### [facility] [address] [place] [address] Dr. Homero Damon GROUP B STREP CULTUREon 02-11 S. agalactiae Ag Ql (Unsp spec) Culture Observations: Called Group B Strep to Millie Armando, [employer] Worker on 02/25 @ 0917 Isolate 1 Streptococcus agalactiae Moderate growth of ORGANISM 1 Streptococcus agalactiae ANTIBIOTIC M.I.C RX STATUS Benzylpenicillin <=0.06 S F Ampicillin <=0.25 S F Cefotaxime <=0.12 S F Ceftriaxone <=0.12 S F Levofloxacin 0.5 S F Erythromycin >=8 R F Clindamycin >=1 R F Linezolid <=2 S F Vancomycin 0.5 S F Tetracycline >=16 R F Normal [facility] Comment on above: Performed By: #### T HCCONF #### [facility] [address] [place] [address] Dr. Homero Damon CULTURE URINEon 02-23-2022 CULTURE [...] Trimethoprim/Sulfameth oxazole <=20 S F Normal [facility] Comment on above: Performed By: #### U RCX #### [facility] [address] [place] [address] Dr. Homero Damon UA RANDOM W/MICROSCOPICon BACTERIA LARGE Abnormal NONE SEEN [facility] Comment on above: Performed By: #### U AMIC #### [facility] [address] [place] [address] Dr. Homero Damon Bilirubin Ql (U) Negative Normal NEGATIVE [facility] Comment on above: Performed By: #### U AMIC #### [facility] [address] [place] [address] Dr. Homero Damon CAST NONE SEEN Normal NONE SEEN [facility] Comment on above: Performed By: #### U AMIC #### [facility] [address] [place] [address] Dr. Homero Damon Clarity (U) CLEAR Normal CLEAR [facility] Comment on above: Performed By: #### U AMIC #### [facility] [address] [place] [address] Dr. Homero Damon Color (U) LT. YELLOW Normal YELLOW [facility] Comment on above: Performed By: #### U AMIC #### [facility] [address] [place] [address] Dr. Homero Damon Crystals LM Nom (Urine sed) NONE SEEN Normal NONE SEEN [facility] Comment on above: Performed By: #### U AMIC #### [facility] [address] [place] [address] Dr. Homero Damon Epithelial cells LM Ql (Urine sed) FEW Abnormal NONE SEEN /RARE [facility] Comment on above: Performed By: #### U AMIC #### [facility] [address] [place] [address] Dr. Homero Damon Glucose Ql (U) Negative Normal NEGATIVE [facility] Comment on above: Performed By: #### U AMIC #### [facility] [address] [address] [address] Homero Damon Hemoglobin Ql (U) Negative Normal NEGATIVE [facility] Comment on above: Performed By: #### U AMIC #### [facility] [address] [address] [address] Homero Damon Ketones Ql (U) TRACE Abnormal NEGATIVE [facility] Comment on above: Performed By: #### U AMIC #### [facility] [address] [address] [address] Homero Damon LEUKOCYTES TRACE Abnormal NEGATIVE [facility] Comment on above: Performed By: #### U AMIC #### [facility] [address] [place] [address] Dr. Homero Damon MUCOUS NONE SEEN Normal NONE SEEN [facility] Comment on above: Performed By: #### U AMIC #### [facility] [address] [address] [address] Homero Damon Nitrite Ql (U) Negative Normal NEGATIVE [facility] Comment on above: Performed By: #### U AMIC #### [facility] [address] [address] [address] Homero Damon pH (U) 6.0 [pH] Normal 5-9 [facility] Comment on above: Performed By: #### U AMIC #### [facility] [address] [address] [address] Homero Damon RBC NONE SEEN Abnormal 0-2 [facility] Comment on above: Performed By: #### U AMIC #### [facility] [address] [address] [address] Homero Damon SPEC GRAVITY 1.025 Normal 1.005-<=1.025 [facility] Comment on above: Performed By: #### U AMIC #### [facility] [address] [place] [address] Dr. Homero Damon UA PROTEIN Negative Normal NEGATIVE/ TRACE [facility] Comment on above: Performed By: #### U AMIC #### [facility] [address] [place] [address] Dr. Homero Damon Urobilinogen Qn (U) 0.2 {Saad'U}/dL Normal 0.2 - 1.0 [facility] Comment on above: Performed By: #### U AMIC #### [facility] [address] [place] [address] Dr. Homero Damon WBC 5-10 Abnormal NONE SEEN [facility] Comment on above: Performed By: #### U AMIC #### [facility] [address] [place] [address] Dr. Homero Damon GLUCOSE - 1HRon 12-12-2021 Glucose [Mass/Vol] 128 mg/dL Critically high 74-106 [facility] Comment on above: Performed By: #### G LU1HR #### [facility] [address] [place] [address] Dr. Homero Damon HEMOGRAM AND PLATELon 2021 Hematocrit (Bld) [Volume fraction] 38.8 % Normal 36.0-48.0 [facility] Comment on above: Performed By: #### H H #### [facility] [address] [place] [address] Dr. Homero Damon Hemoglobin (Bld) [Mass/Vol] 12.3 g/dL Normal 12.0-16.0 [facility] Comment on above: Performed By: #### H H #### [facility] [address] [place] [address] Dr. Homero Damon MCH (RBC) [Entitic mass] 25.8 pg Critically low 26.7-34.0 [facility] Comment on above: Performed By: #### H H #### [facility] [address] [place] [address] Dr. Homero Damon MCHC (RBC) [Mass/Vol] 31.7 g/dL Normal 29.9-35.2 [facility] Comment on above: Performed By: #### H H #### [facility] [facility] [address] [place] [address] Dr. Homero Damon MCV (RBC) [Entitic vol] 81.3 fL Normal 81.0-99.0 [facility] Comment on above: Performed By: #### H H #### [facility] [address] [place] [address] Dr. Homero Damon PLT 304 103/ul Normal 150-450 [facility] Comment on above: Performed By: #### H H #### [facility] [address] [place] [address] Dr. Homero Damon RBC 4.77 106/ul Normal 4.20-5.40 [facility] Comment on above: Performed By: #### H H #### [facility] [address] [place] [address] Dr. Homero Damon WBC 9.9 103/ul Normal 4.0-11.0 [facility] Comment on above: Performed By: #### H H #### [facility] [address] [place] [address] Dr. Homero Damon CULTURE URINEon 12-06-2021 CULTURE [...] Trimethoprim/Sulfameth oxazole <=20 S F Normal [facility] Comment on above: Performed By: #### T HCCONF #### [facility] [address] [place] [address] Dr. Homero Damon Encounters Encounter Date Encounter [...] . Payers Date Payer Category Payer Medicaid [id number] 2022 Medicaid [id number] 2000 Unknown [id number] 2.16.84 [id number] 2000 Unknown [id number] 2.16.84 [id number] 2000 Unknown [id number] 2.16.84 [id number] 2000 Unknown [id number] 2.16.84 [id number] 2000 Unknown [id number] 2.16.84 [id number] 2000 Unknown [id number] 2.16.84 [id number] 2000 Unknown [id number] 2.16.84 [id number] 2000 Unknown [id number] 2.16.840 .[id number] 1959 Unknown [id number] Summary Purpose Family History No Family History Records FoundNo Family History Records Found Advance Directives No Advanced Directives Records FoundNo Advanced Directives Records Found Additional Source Comments INFORMATION SOURCE (unrecogn ized section and content) DATE CREATED AUTHOR 11/20/2022 [facility] DATE CREATED AUTHOR AUTHOR'S ORGANIZ ATION 06/22/2023 [facility] FOR RECORDS PERTAINING TO PATIENTS WHO ARE [...] BE BASED ON THE PRIMARY CLINICAL RECORDS. [facility]. provides no warranty or guarantee of the accuracy or completeness of information in this document.
[2023-07-26 04:08] LABS: AFP Value 17.2 ng/mL (.); Gest. Age on Collection Date 16.4 weeks (.); Gestat. Age Based On Ultrasound (.); Insulin Dep Diabetes No (.); Maternal Age At EDD 23.5 yr (.); OSBR Risk 1 IN 10000 (.); Results Report (.)
== END 2023-07-24 11:07 | disposition home or self-care (01) ==
LOC: LAB 11:06
PROVIDERS: PCP Nurse Practitioner Primary Care; Visit Provider Obstetrics & Gynecology
DX: Z34.92 Encounter for supervision of normal pregnancy, unspecified, second trimester (principal)
CPT/HCPCS: 36415; 82105

== ENCOUNTER 2023-08-15 10:48 | Outpatient (OUT) | payer MEDICAID, SELFPAY ==
--- NOTE | 2023-08-15 10:51 | US_ITS ---
[address] [address] Patient Name: JULIANA MICHELE MRN: [id number] date: 2000 Sex: F Assigned Patient Location: US Current Patient Location: US Accession/Order Number: [id number] Exam Date: 08/15/2023 11:00 Report Date: 08/15/2023 12:52 At the request of: LEA MATSON Procedure: US OB anatomy EXAMINATION: US OB anatomy, US OB cervical length HISTORY: screening, , for anatomic survey Z36.89 COMPARISON: No relevant comparison available. TECHNIQUE: Transabdominal sonographic examination was performed for obstetrical and evaluation. FINDINGS: Number: 1 Heart Rate: 135.7 bpm H.B. /min Amniotic Fluid Volume: Subjectively normal Placental Location: POSTERIOR with lower margin 1.8 cm from os Cervix Length: 6.1 cm, closed. ANATOMY: Normal Structures -cerebellum, choroid plexus, cisterna magna, lateral cerebral ventricles, orbits, midline falx, four-chamber heart, stomach, kidneys, bladder, umbilical cord insertion into abdomen, three-vessel cord, cervical spine, thoracic spine, lumbar spine, sacral spine, right upper extremity, left upper extremity, right lower extremity, left lower extremity. SUBOPTIMALLY SEEN: Cardiac outflow tracts. 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 BIOMETRY: BPD: 4.2 cm 18 weeks 4 days HC: 15.9 cm 18 weeks 5 days AC: 13.7 cm 19 weeks 1 days FL: 3.1 cm 19 weeks 5 days EFW:285.8 grams; 31% FL/AC: 23.0 FL/BPD: 75.3 HC/AC: 1.2 GESTATIONAL AGE: Age by EDC: 19 weeks 4 days GILBERTO by EDC: 01/05/2024 Age by current US: 19 weeks 0 days GILBERTO by current US: 01/09/2024 US/US OB anatomy IMPRESSION: 1. Single live intrauterine with growth detailed above. 2. Hard palate is not well seen but there is question of a defect within the anterior palate versus artifact. Follow-up evaluation is recommended. Electronically authenticated by: COLLETTE BAER Date: 08/15/2023 12:52
--- NOTE | 2023-08-15 10:51 | US_ITS ---
[address] [address] Patient Name: JULIANA MICHELE MRN: [id number] date: 2000 Sex: F Assigned Patient Location: US Current Patient Location: US Accession/Order Number: [id number] Exam Date: 08/15/2023 11:00 Report Date: 08/15/2023 12:52 At the request of: LEA MATSON Procedure: US OB cervical length EXAMINATION: US OB anatomy, US OB cervical length HISTORY: screening, , for anatomic survey Z36.89 COMPARISON: No relevant comparison available. TECHNIQUE: Transabdominal sonographic examination was performed for obstetrical and evaluation. FINDINGS: Number: 1 Heart Rate: 135.7 bpm H.B. /min Amniotic Fluid Volume: Subjectively normal Placental Location: POSTERIOR with lower margin 1.8 cm from os Cervix Length: 6.1 cm, closed. ANATOMY: Normal Structures -cerebellum, choroid plexus, cisterna magna, lateral cerebral ventricles, orbits, midline falx, four-chamber heart, stomach, kidneys, bladder, umbilical cord insertion into abdomen, three-vessel cord, cervical spine, thoracic spine, lumbar spine, sacral spine, right upper extremity, left upper extremity, right lower extremity, left lower extremity. SUBOPTIMALLY SEEN: Cardiac outflow tracts. 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 BIOMETRY: BPD: 4.2 cm 18 weeks 4 days HC: 15.9 cm 18 weeks 5 days AC: 13.7 cm 19 weeks 1 days FL: 3.1 cm 19 weeks 5 days EFW:285.8 grams; 31% FL/AC: 23.0 FL/BPD: 75.3 HC/AC: 1.2 GESTATIONAL AGE: Age by EDC: 19 weeks 4 days GILBERTO by EDC: 01/05/2024 Age by current US: 19 weeks 0 days GILBERTO by current US: 01/09/2024 US/US OB cervical length IMPRESSION: 1. Single live intrauterine with growth detailed above. 2. Hard palate is not well seen but there is question of a defect within the anterior palate versus artifact. Follow-up evaluation is recommended. Electronically authenticated by: COLLETTE BAER Date: 08/15/2023 12:52
== END 2023-08-15 10:49 | disposition home or self-care (01) ==
LOC: US 10:48
PROVIDERS: PCP Nurse Practitioner Primary Care; Visit Provider Obstetrics & Gynecology
DX: Z36.89 Encounter for other specified antenatal screening (principal); Z3A.19 19 weeks gestation of pregnancy
CPT/HCPCS: 76805; 76817

== ENCOUNTER 2023-09-16 09:39 | Outpatient (OUT) | payer MEDICAID, SELFPAY ==
--- OUTSIDE RECORDS SUMMARY | 2023-09-16 09:42 | XMS_ITS | CCD ---
Author Name Unknown Address [address] [place] [address] Organization [facility] Care Team Providers Care County Assessor Name Role Phone KARASIK ., DR GRIGGS Admitting Unavailabl e [...] e DANO ., DR TATE Consulting Unavailable NEYDA PEREZ Consulting Unavailable KARASIK ., DR GRIGGS Procedure Practitioner Anuja vailable Unavailable Primary Care Provider Unavailabl e DANO, LEA Attending Unavailable TRISHA SLATER Attending Unavailable Unavailable Primary Care Provider UnavailLEA Ventura R Referring Unavailable MARIELENA HERNANDEZ Attending Unavailable Medications Current Medications Medication Drug Class(es) Dates Sig (Normalized) Sig (Original) omeprazole 20 mg delayed release oral capsule (3 sources) Proton Pump Inhibitor Start: 06-20-2023 End: 06-19-2024 take 1 capsule by mouth before mealtime omeprazole (PriLOSEC) [address] capsule Indications: Missed menses Take 1 capsule (20 mg) by mouth in the morning. Take before meals. Do not crush or chew. . 30 capsule 11 06/20/2023 06/19/2024 Active take 1 tablet by mouth in the mo rning omeprazole (PriLOSEC OTC) 20 mg EC tablet Take 1 tablet (20 mg total) by mouth in the morning. 0 Active PNV,calcium 72/iron,carb/folic ( PLUS ORAL) (2 sources) PNV,calcium 72/iron,carb/folic ( PLUS ORAL) Take by mouth. 0 Active Vit-Fe Fumarate-FA ( Plus/Iron) 27-1 MG tablet (1 source) Start: 06-20-2023 End: 06-19-2024 take 1 tablet by mouth in the morning Vit-Fe Fumarate-FA ( Plus/Iron) 27-1 MG tablet Indications: Missed menses Take 1 tablet by mouth in the morning. 30 tablet 0 06/20/2023 06/19/2024 Active Completed/Discontinued Medications Medication Drug Class(es) Dates Sig (Normalized) Sig (Original) Desogestrel / Ethinyl Estradiol (2 sources) Progestin, Estrogen Start: 08-26-2017 End: 09-03-2023 take 1 tablet by mouth once daily desog-e.estradiol/e. estradiol (KARIVA, 28,) 0.15-0.02 mgx21 /0.01 mg x 5 per tablet Indications: Encounter for contraceptive management, unspecified type Take 1 tablet by mouth daily. 28 tablet 2 08/26/2017 09/03/2023 Discontinued (Therapy completed) Start: 08-26-2017 take 1 tablet by don th once daily desog-e.estradiol/e.estradiol (KARIVA, 2 8,) 0.15-0.02 mgx21 /0.01 mg x 5 per tablet Indications: Encounter for contraceptive management, unspecified type Take 1 tablet by mouth daily. 28 tablet 2 08/26/2017 Active Problems Active Problems Problem Classification Problem Date Documented Date Episodic/Chronic Immunizations and screening for infectious disease (1 source) Encounter for screening for human papillomavirus (HPV); Translations: [ENC SCREENING HUMAN PAPILLOMAVIRUS] Onset: 11-19-2022 Episodic Other complications of ; puerperium affecting management of mother (1 source) Obesity complicating childbirth; Translations: [OBESITY COMPLICATING CHILDBIRTH] Onset: 03-29-2022 Chronic Other complications of (1 source) Maternal obesity complicating , childbirth and the puerperium, antepartum; Translations: [Obesity complicating , unspecified trimester] 09-03-2023 Chronic Other nutritional; endocrine; and metabolic disorders (1 source) Morbid (severe) obesity due to excess calories; Translations: [MORBID SEVERE OBES D/T EXCESS AC] Onset: 03-29-2022 Chronic Other and delivery including normal (6 sources) Encounter for routine follow-up; Translations: [Single live ] Onset: 03-19-2022 Episodic Other screening for suspected conditions (not mental disorders or infectious disease) (14 sources) Encounter for screening for malignant neoplasm of cervix; Translations: [Encounter for screening for Streptococcus B] Onset: 12-12-2021 Episodic Residual codes; unclassified (1 source) Gestation period, 22 weeks; Translations: [22 weeks gestation of ] 09-03-2023 Episodic Unclassified (1 source) CONTACT W/AND (SUSP) EXPOS COVID-19; Translations: [CONTACT W/AND (SUSP) EXPOS COVID-19] Onset: 03-29-2022 Unclassified (1 source) OB Reminders Onset: 07-23-2023 07-23-2023 Unclassified (1 source) POSSIBLE CLEFT LIP AND PALATE Onset: 09-03-2023 Past or Other Problems Problem Classification Problem [...] TRACT PREG UNS TRI] Onset: 02-22-2022 Episodic Residual codes; unclassified (1 source) 39 weeks gestation of ; Translations: [39 WEEKS GESTATION OF ] Onset: 03-29-2022 Episodic Residual codes; unclassified (1 source) 38 weeks gestation of ; Translations: [38 WEEKS GESTATION OF ] Onset: 03-11-2022 Episodic Substance-related disorders (2 sources) Cannabis use, unspecified, uncomplicated; Translations: [Drug use complicating childbirth] Onset: 03-29-2022 Episodic NEGATED: Highlighted row has been ruled out!Unclassified (2 sources) No known active problems 08-26-2017 Results Test Name Value Interpretation Reference Range Facility Urinalysis macro (dipstick) panel (U)on 08-21-2023 Bilirubin, UA Negative Negative - 4(70) +++ mg/dL [facility] Blood, UA Negative Negative - 50 Francis/mcL [facility] Clarity, UA Clear [facility] Color, UA Yellow [facility] Glucose, UA Negative Negative - 1999(110) ++++ mg/dL [facility] Interpretation and review of laboratory results Abnormal [facility] Ketones, UA Negative Negative - 160(16) ++++ mg/dL [facility] Leukocytes, UA Negative Negative - 500+++ Shravan/mcL [facility] Nitrite, UA Negative Negative - Positive [facility] pH, UA 6.0 5 - 9 [facility] Protein, UA Trace Negative - 1999(20) ++++ mg/dL [facility] Spec Grav, UA 1.030 1 - 1.03 [facility] Urobilinogen, UA 0.2 0.2 - 12 mg/dL [facility] AFP Single Marker ScrRalph overton rnal, Serumon 07-26-2023 Ms Alpha-Fetoprotein Negative [facility] Free Cell DNAon 2022 Free Cell Dna LOW RISK [facility] CBC without diffon Hematocrit (Bld) [Volume fraction] 38.7 % [facility] Hemoglobin (Bld) [Mass/Vol] 12.0 g/dL [facility] Platelets (Bld) [#/Vol] 365 10*3/uL [facility] HIV 1&2 AB/AG Screen (P24 AG )on 06-20-2023 HIV 1&2 AB/AG Non-Reactive [facility] Hepatitis B surface antigeno n 06-20-2023 Hepatitis B Surface Antigen Negative [facility] Hepatitis C(HCV) Ab w/ Refle x to PCRon 06-20-2023 HCV Ab Ql (S) Non-Reactive [facility] No Panel InformationOrdered By: Nicky Miles on 06-20-2023 [facility] Rubella IGG immune statuson 06-20-2023 Rubella immune IgG 2.23 IMMUNE [facility] Syphilis Total(Unknown Syphi lis Status)Ordered By: Nicky Miles on 06-20-2023 Syphilis Non-Reactive [facility] TSHon 06-20-2023 Thyroid Stimulating (3Rd Generation) Hormone/ Tsh 0.708 [facility] PAP ACOG PANEL 2: to on 11-20-2022 . . Normal [facility] Comment on above: Performed By: #### [id number] #### [facility] [address] [address] [address] Homero Damon Age Gdln ACOG Testing - Normal [facility] Comment on above: Performed By: #### [id number] #### [facility] [address] [address] [address] Homero Damon DIAGNOSIS: Comment Normal [facility] Comment on above: Result Comment: NEGA TIVE FOR INTRAEPITHELIAL LESION OR MALIGNANCY. Performed By: #### [id number] #### [facility] [address] [place] [address] Dr. Homero Damon Methodology: Comment Normal [facility] Comment on above: Result Comment: This liquid based ThinPrep(R) pap test was screened with the use of an image guided system. Performed By: #### [id number] #### [facility] [address] [place] [address] Dr. Homero Damon Note: Comment Normal [facility] Comment on above: Result Comment: The Pap smear is a screening test designed to aid in the detection of premalignant and malignant conditions of the uterine cervix. It is not a diagnostic procedure and should not be used as the sole means of detecting cervical cancer. Both false-positive and false-negative reports do occur. . Performed By: #### [id number] #### [facility] [address] [place] [address] Dr. Homero Damon Performed by: Comment Normal [facility] Comment on above: Result Comment: Haris Alexis, Language Path (ASCP) Performed By: #### [id number] #### [facility] [address] [place] [address] Dr. Homero Damon Reflex Criteria: Comment Normal [facility] Comment on above: Result Comment: The HPV DNA reflex criteria were not met with this specimen result therefore, no HPV testing was performed. . Performed By: #### [id number] #### [facility] [address] [place] [address] Dr. Homero Damon Specimen adequacy: Comment Normal [facility] Comment on above: Result Comment: Sati sfactory for evaluation. Endocervical and/or squamous metaplastic cells (endocervical component) are present. Performed By: #### [id number] #### [facility] [address] [place] [address] Dr. Homero Damon CANNABINOID (THC) CONFIRMATI ON, URINEon 03-19-2022 Cannabinoid Positive Abnormal [facility] Comment on above: Performed By: #### T HCCON #### [facility] [address] [place] [address] Dr. Homero Damon Carboxy THC GC/MS Conf 47 ng/mL Normal Cutoff=10 Th e [facility] Comment on above: Performed By: #### T HCCONF #### [facility] [address] [place] [address] Dr. Homero Damon CBC AUTO DIFFon 03-15-2022 BASO # 0.0 103/ul Normal 0.0-0.1 [facility] Comment on above: Performed By: #### C BC #### [facility] [address] [place] [address] Dr. Homero Damon Basophils/100 WBC (Bld) 0.2 % Normal 0.2-2.0 [facility] Comment on above: Performed By: #### C BC #### [facility] [address] [place] [address] Dr. Homero Damon EO # 0.2 103/ul Normal 0.0-0.7 [facility] Comment on above: Performed By: #### C BC #### [facility] [address] [place] [address] Dr. Homero Damon Eosinophils/100 WBC (Bld) 1.5 % Normal 0.9-7.0 [facility] Comment on above: Performed By: #### C BC #### [facility] [address] [place] [address] Dr. Homero Damon Erythrocyte distribution width (RBC) [Ratio] 16.1 % Critically high 11.0-15.0 [facility] Comment on above: Performed By: #### C BC #### [facility] [address] [place] [address] Dr. Homero Damon Hematocrit (Bld) [Volume fraction] 32.7 % Critically low 36.0-48.0 [facility] Comment on above: Performed By: #### C BC #### [facility] [address] [place] [address] Dr. Homero Damon Hemoglobin (Bld) [Mass/Vol] 9.7 g/dL Critically low 12.0-16.0 [facility] Comment on above: Performed By: #### C BC #### [facility] [address] [address] [address] Homero Damon IG # 0.04 10e3/ul Critically high 0.00-0.03 [facility] Comment on above: Performed By: #### C BC #### [facility] [address] [address] [address] Homero Damon IG % 0.4 % Normal 0.0-0.5 [facility] Comment on above: Performed By: #### C BC #### [facility] [address] [place] [address] Dr. Homero Damon LYMPH # 3.5 103/ul Normal 1.2-3.8 [facility] Comment on above: Performed By: #### C BC #### [facility] [address] [place] [address] Dr. Homero Damon Lymphocytes/100 WBC (Bld) 32.9 % Normal 20.5-60.0 [facility] Comment on above: Performed By: #### C BC #### [facility] [address] [place] [address] Dr. Homero Damon MANUAL DIFF REQ NO Normal [facility] Comment on above: Performed By: #### C BC #### [facility] [address] [place] [address] Dr. Homero Damon MCH (RBC) [Entitic mass] 23.0 pg Critically low 26.7-34.0 [facility] Comment on above: Performed By: #### C BC #### [facility] [address] [place] [address] Dr. Homero Damon MCHC (RBC) [Mass/Vol] 29.7 g/dL Critically low 29.9-35.2 [facility] Comment on above: Performed By: #### C BC #### [facility] [address] [place] [address] Dr. Homero Damon MCV (RBC) [Entitic vol] 77.7 fL Critically low 81.0-99.0 [facility] Comment on above: Performed By: #### C BC #### [facility] [address] [place] [address] Dr. Homero Damon MONO # 0.8 103/ul Normal 0.3-0.8 [facility] Comment on above: Performed By: #### C BC #### [facility] [address] [place] [address] Dr. Homero Damon Monocytes/100 WBC (Bld) 7.1 % Normal 1.7-12.0 [facility] Comment on above: Performed By: #### C BC #### [facility] [address] [place] [address] Dr. Homero Damon NEUT # 6.1 103/ul Normal 1.4-6.5 [facility] Comment on above: Performed By: #### C BC #### [facility] [address] [place] [address] Dr. Homero Damon Neutrophils/100 WBC (Bld) 57.9 % Normal 43.0-75.0 [facility] Comment on above: Performed By: #### C BC #### [facility] [address] [place] [address] Dr. Homero Damon Platelet mean volume (Bld) [Entitic vol] 11.0 fL Normal 9.5-13.5 [facility] Comment on above: Performed By: #### C BC #### [facility] [address] [place] [address] Dr. Homero Damon PLT 253 103/ul Normal 150-450 [facility] Comment on above: Performed By: #### C BC #### [facility] [address] [place] [address] Dr. Homero Damon RBC 4.21 106/ul Normal 4.20-5.40 [facility] Comment on above: Performed By: #### C BC #### [facility] [address] [place] [address] Dr. Homero Damon WBC 10.6 103/ul Normal 4.0-11.0 [facility] Comment on above: Performed By: #### C BC #### [facility] [address] [place] [address] Dr. Homero Damon CBC AUTO DIFFon 03-13-2022 BASO # 0.0 103/ul Normal 0.0-0.1 [facility] Comment on above: Performed By: #### T HCCONF #### [facility] [address] [place] [address] Dr. Homero Damon Basophils/100 WBC (Bld) 0.3 % Normal 0.2-2.0 [facility] Comment on above: Performed By: #### T HCCONF #### [facility] [address] [place] [address] Dr. Homero Damon EO # 0.0 103/ul Normal 0.0-0.7 [facility] Comment on above: Performed By: #### T HCCONF #### [facility] [address] [place] [address] Dr. Homero Damon Eosinophils/100 WBC (Bld) 0.2 % Critically low 0.9-7.0 [facility] Comment on above: Performed By: #### T HCCONF #### [facility] [address] [place] [address] Dr. Homero Damon Erythrocyte distribution width (RBC) [Ratio] 16.0 % Critically high 11.0-15.0 [facility] Comment on above: Performed By: #### T HCCONF #### [facility] [address] [place] [address] Dr. Homero Damon Hematocrit (Bld) [Volume fraction] 35.3 % Critically low 36.0-48.0 [facility] Comment on above: Performed By: #### T HCCONF #### [facility] [address] [place] [address] Dr. Homero Damon Hemoglobin (Bld) [Mass/Vol] 11.0 g/dL Critically low 12.0-16.0 [facility] Comment on above: Performed By: #### T HCCONF #### [facility] [address] [place] [address] Dr. Homero Damon IG # 0.04 10e3/ul Critically high 0.00-0.03 [facility] Comment on above: Performed By: #### T HCCONF #### [facility] [address] [address] [address] Homero Damon IG % 0.4 % Normal 0.0-0.5 [facility] Comment on above: Performed By: #### T HCCONF #### [facility] [address] [address] [address] Homero Damon LYMPH # 2.5 103/ul Normal 1.2-3.8 [facility] Comment on above: Performed By: #### T HCCONF #### [facility] [address] [address] [address] Homero Damon Lymphocytes/100 WBC (Bld) 26.4 % Normal 20.5-60.0 [facility] Comment on above: Performed By: #### T HCCONF #### [facility] [address] [place] [address] Dr. Homero Damon MANUAL DIFF REQ NO Normal [facility] Comment on above: Performed By: #### T HCCONF #### [facility] [address] [place] [address] Dr. Homero Damon MCH (RBC) [Entitic mass] 23.5 pg Critically low 26.7-34.0 [facility] Comment on above: Performed By: #### T HCCONF #### [facility] [address] [place] [address] Dr. Homero Damon MCHC (RBC) [Mass/Vol] 31.2 g/dL Normal 29.9-35.2 [facility] Comment on above: Performed By: #### T HCCONF #### [facility] [address] [address] [address] Homero Damon MCV (RBC) [Entitic vol] 75.4 fL Critically low 81.0-99.0 [facility] Comment on above: Performed By: #### T HCCONF #### [facility] [address] [place] [address] Dr. Homero Damon MONO # 0.6 103/ul Normal 0.3-0.8 [facility] Comment on above: Performed By: #### T HCCONF #### [facility] [address] [place] [address] Dr. Homero Damon Monocytes/100 WBC (Bld) 6.4 % Normal 1.7-12.0 [facility] Comment on above: Performed By: #### T HCCONF #### [facility] [address] [place] [address] Dr. Homero Damon NEUT # 6.4 103/ul Normal 1.4-6.5 [facility] Comment on above: Performed By: #### T HCCONF #### [facility] [address] [place] [address] Dr. Homero Damon Neutrophils/100 WBC (Bld) 66.3 % Normal 43.0-75.0 [facility] Comment on above: Performed By: #### T HCCONF #### [facility] [address] [place] [address] Dr. Hoemro Damon Platelet mean volume (Bld) [Entitic vol] 11.0 fL Normal 9.5-13.5 [facility] Comment on above: Performed By: #### T HCCONF #### [facility] [address] [place] [address] Dr. Homero Damon PLT 312 103/ul Normal 150-450 [facility] Comment on above: Performed By: #### T HCCONF #### [facility] [address] [place] [address] Dr. Homero Damon RBC 4.68 106/ul Normal 4.20-5.40 [facility] Comment on above: Performed By: #### T HCCONF #### [facility] [address] [place] [address] Dr. Homero Damon WBC 9.6 103/ul Normal 4.0-11.0 [facility] Comment on above: Performed By: #### T HCCONF #### [facility] [address] [place] [address] Dr. Homero Damon Covid-19 PCR ([facility])on 02-13 SARS-CoV-2 (COVID-19) RNA LORRAINE+probe Ql (Unsp spec) Not detected Normal NOT DETECTED [facility] Comment on above: Result Comment: When [...] for this test is supported by the Bridge Engineer of Health and Human Service's declaration that [...] used). Performed By: #### C VDTBH #### [facility] [address] [place] [address] Dr. Homero Damon DRUG SCREEN RAPID (URINE)on 03-13-2022 AMP Negative Normal NEGATIVE [facility] Comment on above: Performed By: #### D RUGRPD #### [facility] [address] [place] [address] Dr. Homero Damon BAR Negative Normal NEGATIVE [facility] Comment on above: Performed By: #### D RUGRPD #### [facility] [address] [place] [address] Dr. Homero Damon BUP Negative Normal NEGATIVE [facility] Comment on above: Performed By: #### D RUGRPD #### [facility] [address] [place] [address] Dr. Homero Damon BZO Negative Normal NEGATIVE [facility] Comment on above: Performed By: #### D RUGRPD #### [facility] [address] [place] [address] Dr. Homero Damon MADHURI Negative Normal NEGATIVE [facility] Comment on above: Performed By: #### D RUGRPD #### [facility] [address] [place] [address] Dr. Homero Damon CUT-OFFS SEE BELOW Normal [facility] Comment on above: Result Comment: AMP [...] ng/mL Performed By: #### D RUGRPD #### [facility] [address] [place] [address] Dr. Homero Damon DRUG CUT HEADER DRUG CLASS TEST SYSTEM CUT-OFF CONCENTRATIONS ARE FOLLOWS: Normal [facility] Comment on above: Performed By: #### D RUGRPD #### [facility] [address] [place] [address] Dr. Homero Damon mAMP Negative Normal NEGATIVE [facility] Comment on above: Performed By: #### D RUGRPD #### [facility] [address] [place] [address] Dr. Homero Damon MTD Negative Normal NEGATIVE [facility] Comment on above: Performed By: #### D RUGRPD #### [facility] [address] [place] [address] Dr. Homero Damon OPI Negative Normal NEGATIVE [facility] Comment on above: Performed By: #### D RUGRPD #### [facility] [address] [place] [address] Dr. Homero Damon OXY Negative Normal NEGATIVE [facility] Comment on above: Performed By: #### D RUGRPD #### [facility] [address] [place] [address] Dr. Homero Damon PCP Negative Normal NEGATIVE [facility] Comment on above: Performed By: #### D RUGRPD #### [facility] [address] [address] [address] Homero Damon PPX Negative Normal NEGATIVE [facility] Comment on above: Performed By: #### D RUGRPD #### [facility] [address] [place] [address] Dr. Homero Damon TCA Negative Normal NEGATIVE [facility] Comment on above: Performed By: #### D RUGRPD #### [facility] [address] [place] [address] Dr. Homero Damon THC Positive Abnormal NEGATIVE [facility] Comment on above: Performed By: #### D RUGRPD #### [facility] [address] [place] [address] Dr. Homero Damon TYPE AND SCREENon 03-13-2022 TYPE AND SCREEN Negative Normal [facility] Comment on above: Performed By: #### T HCCONF #### [facility] [address] [place] [address] Dr. Homero Damon UA (CLEAN/CATCH) CD REACTOR OPERATOR HEAD/MICRO I F IND.on 03-10-2022 Bilirubin Ql (U) Negative Normal NEGATIVE [facility] Comment on above: Performed By: #### U ACSIND #### [facility] [address] [place] [address] Dr. Homero Damon Clarity (U) CLEAR Normal CLEAR [facility] Comment on above: Performed By: #### U ACSIND #### [facility] [address] [place] [address] Dr. Homero Damon Color (U) YELLOW Normal YELLOW [facility] Comment on above: Performed By: #### U ACSIND #### [facility] [address] [place] [address] Dr. Homero Damon Glucose Ql (U) Negative Normal NEGATIVE [facility] Comment on above: Performed By: #### U ACSIND #### [facility] [address] [place] [address] Dr. Homero Dmaon Hemoglobin Ql (U) Negative Normal NEGATIVE [facility] [facility] Comment on above: Performed By: #### U ACSIND #### [facility] [address] [place] [address] Dr. Homero Damon Ketones Ql (U) Negative Normal NEGATIVE The [facility] Comment on above: Performed By: #### U ACSIND #### [facility] [address] [place] [address] Dr. Homero Damon LEUKOCYTES Negative Normal NEGATIVE The [facility] Comment on above: Performed By: #### U ACSIND #### [facility] [address] [place] [address] Dr. Homero Damon Nitrite Ql (U) Negative Normal NEGATIVE The [facility] Comment on above: Performed By: #### U ACSIND #### [facility] [address] [place] [address] Dr. Homero Damon pH (U) 6.0 [pH] Normal 5-9 [facility] Comment on above: Performed By: #### U ACSIND #### [facility] [address] [place] [address] Dr. Homero Damon SPEC GRAVITY 1.025 Normal 1.005-<=1.025 The [facility] Comment on above: Performed By: #### U ACSIND #### [facility] [address] [place] [address] Dr. Homero Damon UA PROTEIN Negative Normal NEGATIVE/ TRACE The [facility] Comment on above: Performed By: #### U ACSIND #### [facility] [address] [place] [address] Dr. Homero Damon UR MICRO IND NOT INDICATED Normal The [facility] Comment on above: Performed By: #### U ACSIND #### [facility] [address] [place] [address] Dr. Homero Damon Urobilinogen Qn (U) 1.0 {Saad'U}/dL Normal 0.2 - 1. 0 [facility] Comment on above: Performed By: #### U ACSIND #### [facility] [address] [place] [address] Dr. Homero Damon GROUP B STREP CULTUREon 02-11 S. agalactiae Ag Ql (Unsp spec) Culture Observations: Called Group B Strep to Millie Armando, Applications Administrator on 02/25 @ 0917 Isolate 1 Streptococcus agalactiae Moderate growth of ORGANISM 1 Streptococcus agalactiae ANTIBIOTIC M.I.C RX STATUS Benzylpenicillin <=0.06 S F Ampicillin <=0.25 S F Cefotaxime <=0.12 S F Ceftriaxone <=0.12 S F Levofloxacin 0.5 S F Erythromycin >=8 R F Clindamycin >=1 R F Linezolid <=2 S F Vancomycin 0.5 S F Tetracycline >=16 R F Normal The [facility] Comment on above: Performed By: #### T HCCONF #### [facility] [address] [place] [address] Dr. Homero Damon CULTURE URINEon 02-23-2022 CULTURE URINE Isolate 1 Klebsiella pneumoniae >100,000 cfu/mL of ORGANISM 1 Klebsiella pneumoniae ANTIBIOTIC M.I.C RX STATUS Ampicillin 16 R F Ampicillin/Sulbactam <=2 S F Piperacillin/Tazobac jeff <=4 S F Cefazolin <=4 S F Ceftazidime <=1 S F Ceftriaxone <=1 S F Ertapenem <=0.5 S F Imipenem <=0.25 S F Amikacin <=2 S F Gentamicin <=1 S F Tobramycin <=1 S F Ciprofloxacin <=0.25 S F Levofloxacin <=0.12 S F Nitrofurantoin <=16 S F Trimethoprim/Sulfame thoxazole <=20 S F Normal The [facility] Comment on above: Performed By: #### U RCX #### [facility] [address] [place] [address] Dr. Homero Damon UA RANDOM W/MICROSCOPICon BACTERIA LARGE Abnormal NONE SEEN The [facility] Comment on above: Performed By: #### U AMIC #### [facility] [address] [place] [address] Dr. Homero Damon Bilirubin Ql (U) Negative Normal NEGATIVE The [facility] Comment on above: Performed By: #### U AMIC #### [facility] [address] [place] [address] Dr. Homero Damon CAST NONE SEEN Normal NONE SEEN The [facility] Comment on above: Performed By: #### U AMIC #### [facility] [address] [address] [address] Homero Damon Clarity (U) CLEAR Normal CLEAR [facility] Comment on above: Performed By: #### U AMIC #### [facility] [address] [address] [address] Hmoero Damon Color (U) LT. YELLOW Normal YELLOW The [facility] Comment on above: Performed By: #### U AMIC #### [facility] [address] [place] [address] Dr. Homero Damon Crystals LM Nom (Urine sed) NONE SEEN Normal NONE SEEN [facility] Comment on above: Performed By: #### U AMIC #### [facility] [address] [place] [address] Dr. Homero Damon Epithelial cells LM Ql (Urine sed) FEW Abnormal NONE SEEN /RARE [facility] Comment on above: Performed By: #### U AMIC #### [facility] [address] [place] [address] Dr. Homero Damon Glucose Ql (U) Negative Normal NEGATIVE The [facility] Comment on above: Performed By: #### U AMIC #### [facility] [address] [place] [address] Dr. Homero Damon Hemoglobin Ql (U) Negative Normal NEGATIVE The [facility] Comment on above: Performed By: #### U AMIC #### [facility] [address] [place] [address] Dr. Homero Damon Ketones Ql (U) TRACE Abnormal NEGATIVE The [facility] Comment on above: Performed By: #### U AMIC #### [facility] [address] [place] [address] Dr. Homero Damon LEUKOCYTES TRACE Abnormal NEGATIVE The [facility] Comment on above: Performed By: #### U AMIC #### [facility] [address] [place] [address] Dr. Homero Damon MUCOUS NONE SEEN Normal NONE SEEN [facility] Comment on above: Performed By: #### U AMIC #### [facility] [address] [place] [address] Dr. Homero Damon Nitrite Ql (U) Negative Normal NEGATIVE The [facility] Comment on above: Performed By: #### U AMIC #### [facility] [address] [address] [address] Homero Damon pH (U) 6.0 [pH] Normal 5-9 [facility] Comment on above: Performed By: #### U AMIC #### [facility] [address] [place] [address] Dr. Homero Damon RBC NONE SEEN Abnormal 0-2 [facility] Comment on above: Performed By: #### U AMIC #### [facility] [address] [place] [address] Dr. Homero Damon SPEC GRAVITY 1.025 Normal 1.005-<=1.025 The [facility] Comment on above: Performed By: #### U AMIC #### [facility] [address] [place] [address] Dr. Homero Damon UA PROTEIN Negative Normal NEGATIVE/ TRACE The [facility] Comment on above: Performed By: #### U AMIC #### [facility] [address] [place] [address] Dr. Homero Damon Urobilinogen Qn (U) 0.2 {Saad'U}/dL Normal 0.2 - 1. 0 [facility] Comment on above: Performed By: #### U AMIC #### [facility] [address] [place] [address] Dr. Homero Damon WBC 5-10 Abnormal NONE SEEN [facility] Comment on above: Performed By: #### U AMIC #### [facility] [address] [place] [address] Dr. Homero Damon GLUCOSE - 1HRon 12-12-2021 Glucose [Mass/Vol] 128 mg/dL Critically high 74-106 T [facility] Comment on above: Performed By: #### G LU1HR #### [facility] [address] [place] [address] Dr. Homero Damon HEMOGRAM AND PLATELon 2021 Hematocrit (Bld) [Volume fraction] 38.8 % Normal 36.0-48.0 [facility] Comment on above: Performed By: #### H H #### [facility] [address] [place] [address] Dr. Homero Damon Hemoglobin (Bld) [Mass/Vol] 12.3 g/dL Normal 12.0-16.0 [facility] Comment on above: Performed By: #### H H #### [facility] [address] [place] [address] Dr. Homero Damon MCH (RBC) [Entitic mass] 25.8 pg Critically low 26.7-34.0 [facility] Comment on above: Performed By: #### H H #### [facility] [address] [place] [address] Dr. Homero Damon MCHC (RBC) [Mass/Vol] 31.7 g/dL Normal 29.9-35.2 [facility] Comment on above: Performed By: #### H H #### [facility] [address] [place] [address] Dr. Homero Damon MCV (RBC) [Entitic vol] 81.3 fL Normal 81.0-99.0 [facility] Comment on above: Performed By: #### H H #### [facility] [address] [place] [address] Dr. Homero Damon PLT 304 103/ul Normal 150-450 [facility] Comment on above: Performed By: #### H H #### [facility] [address] [place] [address] Dr. Homero Damon RBC 4.77 106/ul Normal 4.20-5.40 [facility] Comment on above: Performed By: #### H H #### [facility] [address] [place] [address] Dr. Homero Damon WBC 9.9 103/ul Normal 4.0-11.0 [facility] Comment on above: Performed By: #### H H #### [facility] [address] [place] [address] Dr. Homero Damon CULTURE URINEon 12-06-2021 CULTURE URINE Isolate 1 Klebsiella pneumoniae >100,000 cfu/ml of ORGANISM 1 Klebsiella pneumoniae ANTIBIOTIC M.I.C RX STATUS Ampicillin 16 R F Ampicillin/Sulbactam 4 S F Piperacillin/Tazobac jeff <=4 S F Cefazolin <=4 S F Ceftazidime <=1 S F Ceftriaxone <=1 S F Ertapenem <=0.5 S F Imipenem <=0.25 S F Amikacin <=2 S F Gentamicin <=1 S F Tobramycin <=1 S F Ciprofloxacin <=0.25 S F Levofloxacin <=0.12 S F Nitrofurantoin 64 I F Trimethoprim/Sulfame thoxazole <=20 S F Normal [facility] Comment on above: Performed By: #### T HCCONF #### [facility] [address] [place] [address] Dr. Homero Damon Vital Signs Date Time Vital Sign Value Performing Clinician Soreni justice 09-03-2023 10:39-0500 Body height 160 cm Marielena eHrnandez MD Work Phone: [facility] 09-03-2023 10:39-0500 Body mass index (BMI) [Ratio] 41.45 kg/m2 Marielena Hernandez MD Work Phone: [facility] 09-03-2023 10:39-0500 Body weight 106.14 kg Marielena Hernandez MD Work Phone: [facility] 09-03-2023 10:39-0500 Diastolic blood pressure 88 mm[Hg] Marielena Hernandez MD Work Phone: [facility] 09-03-2023 10:39-0500 Heart rate 98 /min Marielena Hernandez MD Work Phone: [facility] 09-03-2023 10:39-0500 Systolic blood pressure 123 mm[Hg] Marielena Hernandez MD Work Phone: [facility] 08-21-2023 10:31-0500 Body mass index (BMI) [Ratio] 43.48 kg/m2 Trisha CASTELLANOS Work Phone: [facility] 08-21-2023 10:31-0500 Body weight 104.38 kg Trisha CASTELLANOS Work Phone: [facility] 08-21-2023 10:31-0500 Diastolic blood pressure 60 mm[Hg] Trisha CASTELLANOS Work Phone: [facility] 08-21-2023 10:31-0500 Systolic blood pressure 118 mm[Hg] Trisha CASTELLANOS Work Phone: [facility] Encounters Encounter Date Encounter Type Care Provider Facility Start: 09-03-2023 End: 09-03-20[facility] Start: 09-03-2023 End: 09-03-2023 Office outpatient visit 10 minutes Marielena Hernandez MD Work Phone: [facility] [place] Comment on above: 22 weeks gestation o f (Primary Dx); Severe obesity with alveolar hypoventilation affecting , antepartum ([facility] Start: 08-21-2023 End: 08-21-2023 ambulatory TRISHA SLATER Not Available Start: 08-21-2023 End: 08-21-2023 Office outpatient visit 15 minutes Trisha CASTELLANOS Work Phone: [facility] Comment on above: Second trimester pre gnancy; Diabetes mellitus screening Start: 08-20-2023 Chart abstracting Marielena Hernandez MD Work Phone: [facility] Start: 07-23-2023 End: 07-23-2023 ambulatory LEA DANO Not Available Start: 06-20-2023 End: 06-20-2023 ambulatory LEA DANO Not Available Start: 11-13-2022 End: 11-13-[address] INDU BATES . Facility:[facility] Start: 03-19-2022 End: 03-19-[address] INDU BATES . Facility:[facility] Start: 03-13-2022 End: 03-15-2022 Evaluation and management of inpatient DR THAO COLLAZO . Facility:[facility] Start: 03-10-2022 End: 03-10-[address] INDU BATES . Facility:[facility] Start: 02-21-2022 End: 02-21-[address] INDU BATES . Facility:[facility] Start: 12-12-2021 End: 12-13-[address] NIDU BATES . Facility: Start: 12-04-2021 End: 12-04-[address] INDU BATES . Facility:[facility] Procedures Date Procedure Procedure Detail Performing Clinician Start: 08-21-2023 Urnls dip stick/tabl et rgnt non-auto w/o micrscp Trisha CASTELLANOS Work Phone: Start: 07-26-2023 Alpha-fetoprotein serum Not In System Ref Prov Start: 06-26-2023 FREE CELL DNA (NON-[facility]) Not In System Ref Prov Start: 06-20-2023 Assay of thyroid stimulating hormone tsh Not In System Ref Prov Start: 06-20-2023 Hepatitis c antibody No t In System Ref Prov Start: 06-20-2023 HIV 1&2 AB/AG SCREEN (P24 AG) Not In System Ref Prov Start: 06-20-2023 Iaad ia hepatitis b surface antigen Not In System Ref Prov Start: 03-13-2022 Delivery of Products of Conception, External Approach DR INDU BATES . Start: 03-13-2022 Drainage of Amniotic Fluid, Therapeutic from Products of Conception, Via Natural or Artificial Opening DR INDU BATES . Start: 03-13-2022 Repair Perineum Skin , External Approach DR INDU BATES . Start: 03-12-2022 Introduction of Horm one into Female Reproductive, Via Natural or Artificial Opening DR INDU BATES . Plan of Treatment Date Care Activity Detail Author Start: 10-27-2023 DTaP,Tdap and Td Vaccines (8 - Td or Tdap) DTaP,Tdap and Td Vaccines (8 - Td or Tdap) [facility] Start: 09-17-2023 End: 09-17-2023 Patient encounter procedure 09/17/2023 10:50 AM EST Routine [facility] [address] [place] [place] [address] Lea Cole, DO [address] [place] [address] [facility] Start: 09-03-2023 End: 09-03-2023 Patient encounter procedure [facility] Start: 08-21-2023 End: 08-21-2024 CBC panel - Blood by Automated count CBC Lab Routine Diabetes mellitus screening Expected: 08/21/2023 (Approximate), Expires: 08/21/2024 [facility] Work Phone: Comment on above: Expected: 08/21/2023 (Approximate), Expires: 08/21/2024 Start: 08-21-2023 End: 08-21-2024 Measurement of glucose 1 hour after glucose challenge for glucose tolerance test Glucose tolerance, 1 hour Lab Routine Diabetes mellitus screening Expected: 08/21/2023 (Approximate), Expires: 08/21/2024 [facility] Comment on above: Expected: 08/21/2023 (Approximate), Expires: 08/21/2024 Start: 03-14-2023 Influenza vaccination Influenza Vacc ine [facility] Start: 2021 Screening for malign ant neoplasm of cervix Pap Smear [facility] Start: 2019 DTaP,Tdap and Td Vaccines (1 - Tdap) DTaP,Tdap and Td Vaccines (1 - Tdap) [facility] Start: 2018 Adult BMI Follow Up Plan Adult BMI Follow Up Plan [facility] Start: 2018 Adult BMI Screening Adult BMI Screen ing [facility] Start: 2012 Depression Screening Depression Scre ening [facility] Start: 2012 Tobacco Screening Tobacco Screening [facility] Immunizations Immunization Date Immunization Notes Care Provider Fa kusum 06-03-2013 influenza virus vaccine, unspecified formulation Marielena Hernandez MD Work Phone: [facility] Payers Date Payer Category Payer Medicaid [id number] 2022 Medicaid [id number] 2022 Medicaid [id number] 2000 Unknown [id number] 2.16.84 [id number] 2000 Unknown [id number] 2.16.84 [id number] 2000 Unknown [id number] 2.16.84 [id number] 2000 Unknown [id number] 2.16.84 [id number] 2000 Unknown [id number] 2.16.84 [id number] 2000 Unknown [id number] 2.16.84 [id number] 2000 Unknown [id number] 2.16.84 [id number] 2000 Unknown [id number] 2.16.84 [id number] 2000 Unknown [id number] 2.16.84 [id number] 2000 Unknown [id number] [id number] 2000 Unknown [id number] 2.16.8 [id number] 2000 Unknown [id number] 2.16.8 [id number] 1959 Unknown [id number] Social History Date Type Detail Facility Start: 04-08-2017 End: 09-03-2023 Tobacco smoking status OKIS Never smoked tobacco [facility] Start: 04-08-2017 End: 09-03-2023 Tobacco use and exposure Smokeless tobacco non-user [facility] Start: 08-20-2023 End: 09-03-2023 Alcohol intake Current non-drinker of alcohol (finding) [facility] Start: 08-24-2020 End: 08-20-2023 History of Social function [facility] Start: 08-24-2020 End: 08-20-2023 Tobacco use panel [facility] Childcare Unknown [facility] Start: 04-14-2023 [facility] Start: 2000 Sex Assigned At Not on file P [facility] Start: 06-13-2023 Gender identity Identifies as female gender (finding) [facility] Goals Date Patient Goal Desired Activity /State Personal health goal History of Present illness Narrative 09-03-2023 Ector Iverson RN - 09/03/2023 11:00 AM Adrienne Hernandez MD - 09/03/2023 11:00 AM EST Note Date & Type Note Facility 09-03-2023 History of Present illness Narrative Headache/epigastric pain/blurry vision/swelling? Headaches occasionally but relieved by tylenol Cramping/contractions? No Abnormal vaginal discharge? No Spotting/vaginal bleeding? No Loss of fluid like your water may have broken? No Cats in the home? No Do you change the litter box? N/A Flu vaccine? No Genetic testing done this here or other office? Yes Have you been seen here at [facility] in a previous ? No Recent ER visits or hospitalizations? No Bring blood sugar log or meter with you today? (Please bring them with you for every visit at [facility]) N/A Traveled outside the country in the past 6 month No Any concerns that you would like me to mention to the provider today? No REASON FOR CONSULTATION: concern for cleft lip/palate HISTORY OF PRESENT ILLNESS: Juliette Carlson is a pleasant 23 y.o. at 22w2d due on Estimated Date of Delivery: 01/05/24. complicated by: Obesity, BMI 41 Today, the patient is doing well. She denies headaches, vision changes, nausea, vomiting, right upper quadrant or epigastric pain, SOB or chest pain. She denies contractions, vaginal bleeding, leaking of fluid. She reports good movement. Aneuploidy screening: low risk for cell free DNA (13,18,21, sex chromosomes) Carrier screening: Coby Leahy (baby girl) PAST OBSTETRICAL HISTORY: OB History Para Term AB Living 3 2 2 0 0 2 SAB IAB Ectopic Multiple Live Births 0 0 0 0 2 # Outcome Date GA Lbr Gautam/2nd Weight Sex Delivery Anes PTL Lv 3 Current 2 Term 03/13/22 3.799 kg M Vag-Spont MALU 1 Term 05/04/18 3.685 kg M Vag-Spont MALU MEDICAL HISTORY: History reviewed. No pertinent past medical history. SURGICAL HISTORY: History reviewed. No pertinent surgical history. ALLERGIES: No Known Allergies CURRENT MEDICATIONS: Current Outpatient Medications: omeprazole (PriLOSEC OTC) 20 mg EC tablet, Take 1 tablet (20 mg total) by mouth in the morning., Disp: , Rfl: PNV,calcium 72/iron,carb/folic ( PLUS ORAL), Take by mouth., Disp: , Rfl: REVIEW OF SYSTEMS: Head and Neck: Negative for any dizziness and headaches. Cardiovascular and Respiratory System: Denies any chest pain, shortness of breath, and coughing. Abdominal and System: Denies any abdominal pain, nausea, vomiting, vaginal bleeding, and vaginal discharge FAMILY/GENETIC HISTORY: No family history of VTE, cardiac defects and mental retardation. SOCIAL HISTORY:Patient denies tobacco use, alcohol use, or drug use. RECENT HOSPITALIZATION: REVIEW OF TESTS AND ULTRASOUND REPORTS: Referral records and [facility] chart were reviewed Pertinent Ultrasound findings are see formal ultrasound report. HABITS: Patient activity no restrictions, diet no restrictions PHYSICAL EXAMINATION: BP 123/88 Pulse 98 Ht 160 cm (5' 3 ) Wt 106.1 kg (234 lb) LMP 04/14/2023 BMI 41.45 kg/m Well-appearing in no distress. Respirations not labored, speaking comfortably in full sentences Gravid abdomen OVERALL ASSESSMENT -Juliette Carlson is a pleasant 23 y.o. at 22w2d -no evidence of cleft lip/palate -obesity, BMI 41 COUNSELING Obesity MORBID The patient has a BMI of > 40, which is a risk factor for adverse outcomes in . These possible complications including increased risks for miscarriage in the first trimester, congenital anomalies, hypertensive disorders of including preeclampsia, diabetes mellitus, demise, and delivery (with subsequent risks of wound infection, wound complications otherwise, and/or VTE). While we do not recommend weight loss during (inadequate weight gain and weight loss are associated with increased risks of growth restriction or SGA), we discussed the importance of a healthy diet and exercise. Her goal for weight gain throughout gestation should be 11-20 pounds. Due to the inability to monitor growth using fundal height measurements, serial growth assessment via US is recommended. We also recommend initiation of at least weekly ANFS at 36 weeks given the increased risk of demise in this setting For obesity BMI >40 ACOG suggests the following: - Inadequate weight gain and gestational weight loss should not be encouraged, as this is associated with increased risk of SGA. - Nutrition counseling. - Screening for gestational diabetes in obese women at the first visit and again at 24-28 weeks if the initial screen is negative. - Screening for GENA at the first visit, with referral to Sleep Medicine if GENA is suspected - Consideration for antepartum anesthesia consultation for women with a BMI>40 kg/m2, and especially in those women with GENA. - Place SCDs prior to cesaeran, and continue . For women with a BMI>40 kg/m2, consider prophylactic low molecular weight heparin therapy for 3-5 days after or vaginal delivery. This is in addition to the use of sequential compression devices for the first 12-24 hours after surgery. For this extreme obesity, evidence favors a weight-based regimen of 0.5 mg/kg every 12 hours as thromboprophylaxis. SUMMARY/RECOMMENDATION: Status post low risk cell free DNA, declined amniocentesis No evidence of cleft lip, cleft palate identified on level 2 anatomy ultrasound Level 2 anatomy ultrasound without gross structural abnormalities Gestational diabetes screening recommended Serial growth assessment q4-6 weeks starting at 28 weeks, through primary OB Monitoring for preeclampsia after 20 weeks Daily movement assessment after 28 weeks. ANFS recommendation: Weekly ANFS with BPP starting at 36 weeks, through primary OB Delivery planning at 39 weeks unless a sooner indication arises. If she delivers by , recommend VTE prevention (LMWH 40mg daily) during hospitalization DISPOSITION: At this point the patient is in complete care of her wool scourer. Patient does have ultrasound and office visit scheduled with us. Thank you for allowing me to participate in the care of Juliette Carlson. If there any questions please do not hesitate to contact us. Total time spent was 30 minutes: Preparing to see the patient (e.g., review of tests) Obtaining and/or reviewing separately obtained history Performing a medically appropriate examination and/or evaluation Counseling and educating the patient/family/caregiver Referring and communicating with other health transitional care nurse (not separately reported) Documenting clinical information in the electronic or other health record Marielena Hernandez MD Maternal- Medicine [facility] [address] [place] [address] [facility], the CDC, and other organizations representing maternal and public health professionals recommend that , , and lactating people and those considering receive the COVID-19 vaccination. Vaccination is the best method to reduce maternal and complications of SARS-CoV-2 infection. This document was created with [employer] technology. Though I make every effort to review the dictation as it is transcribed, on occasion the spoken word can be misinterpreted by the technology leading to inappropriate words, phrases, or sentences. This note is addressed to the requesting provider as a consultation for clinical guidance. Specific medical abbreviations are occasionally used and those are generally approved by the [place]?Board of?Obstetrics and?Gynecology?as well as?Terrance grimm abbreviations. The above plan of care was based solely on the diagnoses for which a consultation was requested. ?More frequent testing may be indicated based on her other medical/obstetrical conditions. The management of other or medical conditions is beyond the scope of requested consultation and will continue to be followed by the primary wool scourer or primary care provider. Note to patient: The Century Cures Act makes medical notes like these available to patients in the interest of transparency. However, be advised this is a medical document. It is intended as peer to peer communication. It is written in medical language and may contain abbreviations or verbiage that are unfamiliar. It may appear blunt or direct. Medical documents are intended to carry relevant information, facts as evident, and the clinical opinion of the practitioner. documented in this encounter [facility] History of Present illness Narrative 08-21-2023 EMANUEL Clayton - 08/21/2023 10:30 AM EST Note Date & Type Note Facility 08-21-2023 History of Presen t illness Narrative Reason for Appointment: Patient ID: Juliette Carlson is a 23 y.o. female who presents for Routine Visit Patient presents today for Return OB appointment. Current Medications: has a current medication list which includes the following prescription(s): omeprazole and plus/iron. Medical History: Active Ambulatory Problems Diagnosis Date Noted No Active Ambulatory Problems Resolved Ambulatory Problems Diagnosis Date Noted No Resolved Ambulatory Problems Past Medical History: Diagnosis Date follow-up Family History Problem Relation Name Age of Onset Diabetes Father Other (high blood pressure) Father Social History Tobacco Use Smoking status: Never Smokeless tobacco: Not on file Substance Use Topics Alcohol use: Not on file Drug use: Never History reviewed. No pertinent surgical history. No Known Allergies Review of Systems: Review of Systems Constitutional: Negative. HENT: Negative. Eyes: Negative. Respiratory: Negative. Cardiovascular: Negative. Gastrointestinal: Negative. Genitourinary: Negative. Musculoskeletal: Negative. Skin: Negative. Neurological: Negative. All other systems reviewed and are negative. Hematological: Negative. Endocrine: Negative. Allergic/Immunologic: Negative. Objective Physical Exam Constitutional: Appearance: Normal appearance. She is normal weight. HENT: Head: Normocephalic. Cardiovascular: Rate and Rhythm: Normal rate. Pulses: Normal pulses. Pulmonary: Effort: Pulmonary effort is normal. Breath sounds: Normal breath sounds. Abdominal: Palpations: Abdomen is soft. Musculoskeletal: General: Normal range of motion. Neurological: General: No focal deficit present. Mental Status: She is alert and oriented to person, place, and time. Psychiatric: Mood and Affect: Mood normal. Behavior: Behavior normal. Thought Content: Thought content normal. Judgment: Judgment normal. Vitals and nursing note reviewed. Vitals: Estimated body mass index is 43.48 kg/m as calculated from the following: Height as of 11/13/22: 5' 1 . Weight as of this encounter: 230 lb 1.9 oz. BP: 118/60 Patient's last menstrual period was 04/14/2023. Assessment/Plan Encounter Diagnoses Name Primary? Second trimester Diabetes mellitus screening Patient presents today for a routine obstetrics appointment. Patient is currently 20w3d with a Estimated Date of Delivery: 01/05/24. Patient presents today for a routine obstetrics appointment. Patient is currently 20w3d . Patient states she is doing well but has complaints of being tired due to current . Patient has verbalizes frequent movement. labor precautions was discussed/given Follow Up: Patient is to return to office in4 weeks for routine OB appointment. Documented by EMANUEL Clayton on behalf of: EMANUEL Clayton documented in this encounter [facility] Evaluation note Note Date & Type Note Facility Evaluation note Diagnosis Second trimester state, incidental Diabetes mellitus screening Screening for diabetes mellitus documented in this encounter [facility] Evaluation note Note Date & Type Note Facility Evaluation note Diagnosis 22 weeks gestation of - Primary Severe obesity with alveolar hypoventilation affecting , antepartum (CMS-HCC) documented in this encounter [facility] Instructions Note Date & Type Note Facility Instructions Not on filedocumented in this en counter [facility] Instructions Note Date & Type Note Facility Instructions Not on filedocumented in this en counter [facility] Summary Purpose Family History No Family History Records FoundNo Family History Records FoundNo Family History Records Found Advance Directives No Advanced Directives Records FoundNo Advanced Directives Records FoundNo Advanced Directives Records Found Additional Source Comments INFORMATION SOURCE (unrecogn ized section and content) DATE CREATED AUTHOR 11/20/2022 [facility] DATE CREATED AUTHOR AUTHOR'S ORGANIZ ATION 08/22/2023 [facility] EPIC DATE CREATED AUTHOR AUTHOR'S ORGANIZ ATION 09/10/2023 [facility] Reason for Visit (unrecogniz ed section and content) Reason Comments Routine Visit Reason Comments POSSIBLE CLEFT LIP AND PALATE FOR RECORDS PERTAINING TO PATIENTS WHO ARE [...] BE BASED ON THE PRIMARY CLINICAL RECORDS. [facility] [employer] [facility]. provides no warranty or guarantee of the accuracy or completeness of information in this document.
[2023-09-16 10:51] LABS: Basophils Percent Auto 0.4 % (0.2-2.0); Eosinophils Absolute Auto 0.1 10^3/uL (0.0-0.7); Hematocrit 35.3 % (36.0-48.0); Hemoglobin 10.7 g/dL (12.0-16.0); Immature Granulocytes Abs Auto 0.09 10^3/uL (0.00-0.03); Immature Granulocytes Pct Auto 0.8 % (0.0-0.5); Lymphocytes Absolute Auto 2.5 10^3/uL (1.2-3.8); Lymphocytes Percent Auto 23.2 % (20.5-60.0); Mean Corpuscular HGB Conc 30.3 g/dL (29.9-35.2); Mean Corpuscular Hemoglobin 24.2 pg (26.7-34.0); Mean Corpuscular Volume 79.9 fL (81.0-99.0); Mean Platelet Volume 10.4 fL (9.5-13.5); Monocytes Absolute Auto 0.6 10^3/uL (0.3-0.8); Monocytes Percent Auto 5.4 % (1.7-12.0); Neutrophils Absolute Auto 7.5 10^3/uL (1.4-6.5); Neutrophils Percent Auto 69.2 % (43.0-75.0); Platelet Count 285 10^3/uL (150-450); Red Blood Count 4.42 10^6/uL (4.20-5.40); Red Cell Distribution Width 15.6 % (11.0-15.0); White Blood Count 10.8 10^3/uL (4.0-11.0)
[2023-09-16 11:16] LABS: Glucose 1 Hour 106 mg/dL (<130)
== END 2023-09-16 09:40 | disposition home or self-care (01) ==
PROVIDERS: PCP Nurse Practitioner Primary Care; Visit Provider Physician Assistant
DX: Z13.1 Encounter for screening for diabetes mellitus (principal)
CPT/HCPCS: 36415; 82950; 85025

== ENCOUNTER 2023-10-21 11:30 | Outpatient (OUT) | payer MEDICAID, SELFPAY ==
--- NOTE | 2023-10-21 11:34 | US_ITS ---
[address] [address] Patient Name: JULIANA MICHELE MRN: [id number] date: 2000 Sex: F Assigned Patient Location: [facility] Current Patient Location: [facility] Accession/Order Number: [id number] Exam Date: 10/21/2023 11:34 Report Date: 10/21/2023 12:06 At the request of: LEA MATSON Procedure: US OB growth EXAMINATION: US OB growth HISTORY: SEVERE OBESITY WITH ALVEOLAR HYPOVENTILATION AFFECTING PREGN COMPARISON: 08/15/2023 FINDINGS: Heart Rate: 160.0 bpm Amniotic Fluid Volume: 9.3 cm Number: 1.0 Position: Cephalic presentation, longitudinal lie Maximum Vertical Pocket: 2.9 cm cm 3.3 cm cm 2.0 cm cm 1.1 cm cm BIOMETRY: BPD: 6.5 cm cm; 26 weeks 2 days; <3% HC: 26.1 cmcm; 28 weeks 3 days , 6% AC: 26.2 cm cm; 30 weeks 2 days, 79% FL: 5.7 cm cm; 29 weeks 6 days; 55.8 % % EFW: 1433.9 grams, 3 lbs. 3 oz., 57% FL/AC: 21.7 FL/BPD: 87.5 HC/AC: 1.0 GESTATIONAL AGE: Age by EDC: 29 weeks 1 days GILBERTO by EDC: 01/05/2024 Age by US: 28 weeks 5 days GILBERTO by US: 01/08/2024 US/US OB growth IMPRESSION: BPD less than the 3rd percentile Head circumference at the 6th percentile Electronically authenticated by: BETTYE MICHELLE Date: 10/21/2023 12:06
--- OUTSIDE RECORDS SUMMARY | 2023-10-21 11:48 | XMS_ITS | CCD ---
Author Organization [facility] Care Team Providers Care Gas Technician Name Role Phone PAULO ., DR GRIGGS Admitting Unavailabl e HOY ., DR OSUNA Primary Care Unavailable KARASIK ., DR GIRGGS Attending Unavailabl e KARASIK ., DR GRIGGS [...] vailable Unavailable Primary Care Provider Unavailabl e Unavailable Primary Care Provider UnavailLEA Ventura Referring Unavailable MARIELENA HERNANDEZ Attending Unavailable LEA COLE Attending Unavailable TRISHA SLATER Attending Unavailable LEA COLE Attending Unavailable TRISHA SLATER Attending Unavailable Medications Current Medications Medication Drug [...] Negative Negative - 4(70) +++ mg/dL [facility] Blood, UA Negative Negative - 50 Francis/mcL [facility] Clarity, UA Clear [facility] Color, UA Yellow [facility] Glucose, UA Negative Negative - 1999(110) ++++ mg/dL [facility] Interpretation and review of laboratory results Abnormal [facility] Ketones, UA Negative Negative - 160(16) ++++ mg/dL [facility] Leukocytes, UA Negative Negative - 500+++ Shravan/mcL [facility] Nitrite, UA Negative Negative - Positive [facility] pH, UA 6.0 5 - 9 [facility] Protein, UA Trace Negative - 1999(20) ++++ mg/dL [facility] Spec Grav, UA 1.030 1 - 1.03 [facility] Urobilinogen, UA 0.2 0.2 - 12 mg/dL [facility] AFP Single Marker ScrnRalph rnal, Serumon 07-26-2023 Ms Alpha-Fetoprotein Negative [facility] Free Cell DNAon 2022 Free Cell Dna LOW RISK [facility] CBC without diffon Hematocrit (Bld) [Volume fraction] 38.7 % [facility] Hemoglobin (Bld) [Mass/Vol] 12.0 g/dL [facility] Platelets (Bld) [#/Vol] 365 10*3/uL [facility] HIV 1&2 AB/AG Screen (P24 AG )on 06-20-2023 HIV 1&2 AB/AG Non-Reactive [facility] Hepatitis B surface antigeno n 06-20-2023 Hepatitis B Surface Antigen Negative [facility] Hepatitis C(HCV) Ab w/ Refle x to PCRon 06-20-2023 HCV Ab Ql (S) Non-Reactive [facility] No Panel InformationOrdered By: Nicky Miles on 06-20-2023 [facility] Rubella IGG immune statuson 06-20-2023 Rubella immune IgG 2.23 IMMUNE [facility] Syphilis Total(Unknown Syphi lis Status)Ordered By: Nicky Miles on 06-20-2023 Syphilis Non-Reactive [facility] TSHon 06-20-2023 Thyroid Stimulating (3Rd Generation) Hormone/ Tsh 0.708 [facility] PAP ACOG PANEL 2: 21 to 29on 11-20-2022 . . Normal [facility] Comment on above: Performed By: #### [id number] #### [facility] [address] [address] [address] Homero Damon Age Gdln ACOG Testing - Normal [facility] Comment on above: Performed By: #### [id number] #### [facility] [address] [address] [address] Homero Damon DIAGNOSIS: Comment [facility] Comment on above: Result Comment: NEGA TIVE FOR INTRAEPITHELIAL LESION OR MALIGNANCY. Performed By: #### [id number] #### [facility] [address] [place] [address] Dr. Homero Damon Methodology: Comment Normal [facility] Comment on above: Result Comment: This liquid based ThinPrep(R) pap test was screened with the use of an image guided system. Performed By: #### [id number] #### [facility] [address] [place] [address] Dr. Homero Damon Note: Comment Normal [facility] Comment on above: Result Comment: The Pap smear is a screening test designed to aid in the detection of premalignant and malignant conditions of the uterine cervix. It is not a diagnostic procedure and should not be used as the sole means of detecting cervical cancer. Both false-positive and false-negative reports do occur. . Performed By: #### [id number] #### [facility] [address] [place] [address] Dr. Homero Damon Performed by: Comment Normal [facility] Comment on above: Result Comment: Haris Alexis, Motor Equipment Sergeant (ASCP) Performed By: #### [id number] #### [facility] [address] [place] [address] Dr. Homero Damon Reflex Criteria: Comment Normal [facility] Comment on above: Result Comment: The HPV DNA reflex criteria were not met with this specimen result therefore, no HPV testing was performed. . Performed By: #### [id number] #### [facility] [address] [place] [address] Dr. Homero Damon Specimen adequacy: Comment Normal [facility] Comment on above: Result Comment: Sati sfactory for evaluation. Endocervical and/or squamous metaplastic cells (endocervical component) are present. Performed By: #### [id number] #### [facility] [address] [place] [address] Dr. Homero Damon CANNABINOID (THC) CONFIRMATI ON, URINEon 03-19-2022 Cannabinoid Positive Abnormal [facility] Comment on above: Performed By: #### T HCCONF #### [facility] [address] [place] [address] Dr. Homero Damon Carboxy THC GC/MS Conf 47 ng/mL Normal Cutoff=10 Th e [facility] Comment on above: Performed By: #### T HCCONF #### [facility] [address] [place] [address] Dr. Homero Damon CBC AUTO DIFFon 03-15-2022 BASO # 0.0 103/ul Normal 0.0-0.1 [facility] Comment on above: Performed By: #### C BC #### [facility] [address] [place] [address] Dr. Homero Damon Basophils/100 WBC (Bld) 0.2 % Normal 0.2-2.0 [facility] Comment on above: Performed By: #### C BC #### [facility] [address] [place] [address] Dr. Homero Damon EO # 0.2 103/ul Normal 0.0-0.7 [facility] Comment on above: Performed By: #### C BC #### [facility] [address] [place] [address] Dr. Homero Damon Eosinophils/100 WBC (Bld) 1.5 % Normal 0.9-7.0 [facility] Comment on above: Performed By: #### C BC #### [facility] [address] [place] [address] Dr. Homero Damon Erythrocyte distribution width (RBC) [Ratio] 16.1 % Critically high 11.0-15.0 [facility] Comment on above: Performed By: #### C BC #### [facility] [address] [place] [address] Dr. Homero Damon Hematocrit (Bld) [Volume fraction] 32.7 % Critically low 36.0-48.0 [facility] Comment on above: Performed By: #### C BC #### [facility] [address] [place] [address] Dr. Homero Damon Hemoglobin (Bld) [Mass/Vol] 9.7 g/dL Critically low 12.0-16.0 [facility] Comment on above: Performed By: #### C BC #### [facility] [address] [place] [address] Dr. Homero Damon IG # 0.04 10e3/ul Critically high 0.00-0.03 [facility] Comment on above: Performed By: #### C BC #### [facility] [address] [place] [address] Dr. Homero Damon IG % 0.4 % Normal 0.0-0.5 [facility] Comment on above: Performed By: #### C BC #### [facility] [address] [place] [address] Dr. Homero Damon LYMPH # 3.5 103/ul Normal 1.2-3.8 [facility] Comment on above: Performed By: #### C BC #### [facility] [address] [place] [address] Dr. Homero Damon Lymphocytes/100 WBC (Bld) 32.9 % Normal 20.5-60.0 [facility] Comment on above: Performed By: #### C BC #### [facility] [address] [place] [address] Dr. Homero Damon MANUAL DIFF REQ NO Normal [facility] Comment on above: Performed By: #### C BC #### [facility] [address] [place] [address] Dr. Homero Damon MCH (RBC) [Entitic mass] 23.0 pg Critically low 26.7-34.0 [facility] Comment on above: Performed By: #### C BC #### [facility] [address] [place] [address] Dr. Homero Damon MCHC (RBC) [Mass/Vol] 29.7 g/dL Critically low 29.9-35.2 [facility] Comment on above: Performed By: #### C BC #### [facility] [address] [place] [address] Dr. Homero Damon MCV (RBC) [Entitic vol] 77.7 fL Critically low 81.0-99.0 [facility] Comment on above: Performed By: #### C BC #### [facility] [address] [place] [address] Dr. Homero Damon MONO # 0.8 103/ul Normal 0.3-0.8 [facility] Comment on above: Performed By: #### C BC #### [facility] [address] [place] [address] Dr. Homero Damon Monocytes/100 WBC (Bld) 7.1 % Normal 1.7-12.0 [facility] Comment on above: Performed By: #### C BC #### [facility] [address] [place] [address] Dr. Homero Damon NEUT # 6.1 103/ul Normal 1.4-6.5 [facility] Comment on above: Performed By: #### C BC #### [facility] [address] [place] [address] Dr. Homero Damon Neutrophils/100 WBC (Bld) 57.9 % Normal 43.0-75.0 [facility] Comment on above: Performed By: #### C BC #### [facility] [address] [place] [address] Dr. Homero Damon Platelet mean volume (Bld) [Entitic vol] 11.0 fL Normal 9.5-13.5 [facility] Comment on above: Performed By: #### C BC #### [facility] [address] [place] [address] Dr. Homero Damon PLT 253 103/ul Normal 150-450 [facility] Comment on above: Performed By: #### C BC #### [facility] [address] [place] [address] Dr. Homero Dmaon RBC 4.21 106/ul Normal 4.20-5.40 [facility] Comment on above: Performed By: #### C BC #### [facility] [address] [place] [address] Dr. Homero Damon WBC 10.6 103/ul Normal 4.0-11.0 [facility] Comment on above: Performed By: #### C BC #### [facility] [address] [place] [address] Dr. Homero Damon CBC AUTO DIFFon 03-13-2022 BASO # 0.0 103/ul Normal 0.0-0.1 [facility] Comment on above: Performed By: #### T HCCONF #### [facility] [address] [place] [address] Dr. Homero Damon Basophils/100 WBC (Bld) 0.3 % Normal 0.2-2.0 [facility] Comment on above: Performed By: #### T HCCONF #### [facility] [address] [place] [address] Dr. Homero Damon EO # 0.0 103/ul Normal 0.0-0.7 [facility] Comment on above: Performed By: #### T HCCONF #### [facility] [address] [place] [address] Dr. Homero Damon Eosinophils/100 WBC (Bld) 0.2 % Critically low 0.9-7.0 [facility] Comment on above: Performed By: #### T HCCONF #### [facility] [address] [place] [address] Dr. Homero Damon Erythrocyte distribution width (RBC) [Ratio] 16.0 % Critically high 11.0-15.0 [facility] Comment on above: Performed By: #### T HCCONF #### [facility] [address] [place] [address] Dr. Homero Damon Hematocrit (Bld) [Volume fraction] 35.3 % Critically low 36.0-48.0 [facility] Comment on above: Performed By: #### T HCCONF #### [facility] [address] [place] [address] Dr. Homero Damon Hemoglobin (Bld) [Mass/Vol] 11.0 g/dL Critically low 12.0-16.0 [facility] Comment on above: Performed By: #### T HCCONF #### [facility] [address] [place] [address] Dr. Homero Damon IG # 0.04 10e3/ul Critically high 0.00-0.03 [facility] Comment on above: Performed By: #### T HCCONF #### [facility] [address] [place] [address] Dr. Homero Damon IG % 0.4 % Normal 0.0-0.5 [facility] Comment on above: Performed By: #### T HCCONF #### [facility] [address] [address] [address] Homero Damon LYMPH # 2.5 103/ul Normal 1.2-3.8 [facility] Comment on above: Performed By: #### T HCCONF #### [facility] [address] [address] [address] Homero Damon Lymphocytes/100 WBC (Bld) 26.4 % Normal 20.5-60.0 [facility] Comment on above: Performed By: #### T HCCONF #### [facility] [address] [place] [address] Dr. Homero Damon MANUAL DIFF REQ NO Normal [facility] Comment on above: Performed By: #### T HCCONF #### [facility] [address] [place] [address] Dr. Homero Damon MCH (RBC) [Entitic mass] 23.5 pg Critically low 26.7-34.0 [facility] Comment on above: Performed By: #### T HCCONF #### [facility] [address] [place] [address] Dr. Homero Damon MCHC (RBC) [Mass/Vol] 31.2 g/dL Normal 29.9-35.2 [facility] Comment on above: Performed By: #### T HCCONF #### [facility] [address] [place] [address] Dr. Homero Damon MCV (RBC) [Entitic vol] 75.4 fL Critically low 81.0-99.0 [facility] Comment on above: Performed By: #### T HCCONF #### [facility] [address] [place] [address] Dr. Homero Damon MONO # 0.6 103/ul Normal 0.3-0.8 [facility] Comment on above: Performed By: #### T HCCONF #### [facility] [address] [place] [address] Dr. Homero Damon Monocytes/100 WBC (Bld) 6.4 % Normal 1.7-12.0 [facility] Comment on above: Performed By: #### T HCCONF #### [facility] [address] [place] [address] Dr. Homero Damon NEUT # 6.4 103/ul Normal 1.4-6.5 [facility] Comment on above: Performed By: #### T HCCONF #### [facility] [address] [place] [address] Dr. Homero Damon Neutrophils/100 WBC (Bld) 66.3 % Normal 43.0-75.0 [facility] Comment on above: Performed By: #### T HCCONF #### [facility] [address] [place] [address] Dr. Homero Damon Platelet mean volume (Bld) [Entitic vol] 11.0 fL Normal 9.5-13.5 [facility] Comment on above: Performed By: #### T HCCONF #### [facility] [address] [place] [address] Dr. Homero Damon PLT 312 103/ul Normal 150-450 [facility] Comment on above: Performed By: #### T HCCONF #### [facility] [address] [place] [address] Dr. Homero Damon RBC 4.68 106/ul Normal 4.20-5.40 [facility] Comment on above: Performed By: #### T HCCONF #### [facility] [address] [place] [address] Dr. Homero Damon WBC 9.6 103/ul Normal 4.0-11.0 [facility] Comment on above: Performed By: #### T HCCONF #### [facility] [address] [place] [address] Dr. Homero Damon Covid-19 PCR ([facility])on 02-13 SARS-CoV-2 (COVID-19) RNA LORRAINE+probe Ql (Unsp spec) Not detected Normal NOT DETECTED [facility] Comment on above: Result Comment: When [...] for this test is supported by the Hair Mixer of Health and Human Service's declaration that [...] used). Performed By: #### C VDTBH #### [facility] [address] [place] [address] Dr. Homero Damon DRUG SCREEN RAPID (URINE)on 03-13-2022 AMP Negative Normal NEGATIVE [facility] Comment on above: Performed By: #### D RUGRPD #### [facility] [address] [place] [address] Dr. Homero Damon BAR Negative Normal NEGATIVE [facility] Comment on above: Performed By: #### D RUGRPD #### [facility] [address] [place] [address] Dr. Homero Damon BUP Negative Normal NEGATIVE [facility] Comment on above: Performed By: #### D RUGRPD #### [facility] [address] [place] [address] Dr. Homero Damon BZO Negative Normal NEGATIVE [facility] Comment on above: Performed By: #### D RUGRPD #### [facility] [address] [place] [address] Dr. Homero Damon MADHURI Negative Normal NEGATIVE [facility] Comment on above: Performed By: #### D RUGRPD #### [facility] [address] [place] [address] Dr. Homero Damon CUT-OFFS SEE BELOW Normal [facility] Comment on above: Result Comment: AMP [...] ng/mL Performed By: #### D RUGRPD #### [facility] [address] [place] [address] Dr. Homero Damon DRUG CUT HEADER DRUG CLASS TEST SYSTEM CUT-OFF CONCENTRATIONS ARE FOLLOWS: Normal [facility] Comment on above: Performed By: #### D RUGRPD #### [facility] [address] [place] [address] Dr. Homero Damon mAMP Negative Normal NEGATIVE [facility] Comment on above: Performed By: #### D RUGRPD #### [facility] [address] [place] [address] Dr. Homero Damon MTD Negative Normal NEGATIVE [facility] Comment on above: Performed By: #### D RUGRPD #### [facility] [address] [place] [address] Dr. Homero Damon OPI Negative Normal NEGATIVE [facility] Comment on above: Performed By: #### D RUGRPD #### [facility] [address] [place] [address] Dr. Homero aDmon OXY Negative Normal NEGATIVE [facility] Comment on above: Performed By: #### D RUGRPD #### [facility] [address] [place] [address] Dr. Homero Damon PCP Negative Normal NEGATIVE [facility] Comment on above: Performed By: #### D RUGRPD #### [facility] [address] [place] [address] Dr. Homero Damon PPX Negative Normal NEGATIVE [facility] Comment on above: Performed By: #### D RUGRPD #### [facility] [address] [address] [address] Homero Damon TCA Negative Normal NEGATIVE [facility] Comment on above: Performed By: #### D RUGRPD #### [facility] [address] [place] [address] Dr. Homero Damon THC Positive Abnormal NEGATIVE [facility] Comment on above: Performed By: #### D RUGRPD #### [facility] [address] [place] [address] Dr. Homero Damon TYPE AND SCREENon 03-13-2022 TYPE AND SCREEN Negative Normal [facility] Comment on above: Performed By: #### T HCCONF #### [facility] [address] [place] [address] Dr. Homero Damon UA (CLEAN/CATCH) FUR BLOWER OPERATOR/MICRO I F IND.on 03-10-2022 Bilirubin Ql (U) Negative Normal NEGATIVE [facility] Comment on above: Performed By: #### U ACSIND #### [facility] [address] [place] [address] Dr. Homero Damon Clarity (U) CLEAR Normal CLEAR [facility] Comment on above: Performed By: #### U ACSIND #### [facility] [address] [place] [address] Dr. Homero Damon Color (U) YELLOW Normal YELLOW [facility] Comment on above: Performed By: #### U ACSIND #### [facility] [address] [place] [address] Dr. Homero Damon Glucose Ql (U) Negative Normal NEGATIVE [facility] Comment on above: Performed By: #### U ACSIND #### [facility] [address] [place] [address] Dr. Homero Damon Hemoglobin Ql (U) Negative Normal NEGATIVE [facility] Comment on above: Performed By: #### U ACSIND #### [facility] [address] [place] [address] Dr. Homero Damon Ketones Ql (U) Negative Normal NEGATIVE [facility] Comment on above: Performed By: #### U ACSIND #### [facility] [address] [address] [address] Homero Damon LEUKOCYTES Negative Normal NEGATIVE [facility] Comment on above: Performed By: #### U ACSIND #### [facility] [address] [address] [address] Homero Damon Nitrite Ql (U) Negative Normal NEGATIVE [facility] Comment on above: Performed By: #### U ACSIND #### [facility] [address] [address] [address] Homero Damon pH (U) 6.0 [pH] Normal 5-9 [facility] Comment on above: Performed By: #### U ACSIND #### [facility] [address] [place] [address] Dr. Homero Damon SPEC GRAVITY 1.025 Normal 1.005-<=1.025 [facility] Comment on above: Performed By: #### U ACSIND #### [facility] [address] [address] [address] Homero Damon UA PROTEIN Negative Normal NEGATIVE/ TRACE [facility] Comment on above: Performed By: #### U ACSIND #### [facility] [address] [place] [address] Dr. Homero Damon UR MICRO IND NOT INDICATED Normal [facility] Comment on above: Performed By: #### U ACSIND #### [facility] [address] [place] [address] Dr. Homero Damon Urobilinogen Qn (U) 1.0 {Saad'U}/dL Normal 0.2 - 1. 0 [facility] Comment on above: Performed By: #### U ACSIND #### [facility] [address] [place] [address] Dr. Homero Damon GROUP B STREP CULTUREon 02-11 S. agalactiae Ag Ql (Unsp spec) Culture Observations: Called Group B Strep to Millie Armando, Chemical Tester on 02/25 @ 0969 Isolate 1 Streptococcus agalactiae Moderate growth of ORGANISM 1 Streptococcus agalactiae ANTIBIOTIC M.I.C RX STATUS Benzylpenicillin <=0.06 S F Ampicillin <=0.25 S F Cefotaxime <=0.12 S F Ceftriaxone <=0.12 S F Levofloxacin 0.5 S F Erythromycin >=8 R F Clindamycin >=1 R F Linezolid <=2 S F Vancomycin 0.5 S F Tetracycline >=16 R F Normal [facility] Comment on above: Performed By: #### T HCCONF #### [facility] [address] [place] [address] Dr. Homero Damon CULTURE URINEon 02-23-2022 CULTURE [...] Trimethoprim/Sulfame thoxazole <=20 S F Normal [facility] Comment on above: Performed By: #### U RCX #### [facility] [address] [place] [address] Dr. Homero Damon UA RANDOM W/MICROSCOPICon BACTERIA LARGE Abnormal NONE SEEN The [facility] Comment on above: Performed By: #### U AMIC #### [facility] [address] [place] [address] Dr. Homero Damon Bilirubin Ql (U) Negative Normal NEGATIVE The [facility] Comment on above: Performed By: #### U AMIC #### [facility] [address] [place] [address] Dr. Homero Damon CAST NONE SEEN Normal NONE SEEN The [facility] Comment on above: Performed By: #### U AMIC #### [facility] [address] [place] [address] Dr. Homero Damon Clarity (U) CLEAR Normal CLEAR The [facility] Comment on above: Performed By: #### U AMIC #### [facility] [address] [address] [address] Homero Damon Color (U) LT. YELLOW Normal YELLOW The [facility] Comment on above: Performed By: #### U AMIC #### [facility] [address] [address] [address] Homero Damon Crystals LM Nom (Urine sed) NONE SEEN Normal NONE SEEN [facility] Comment on above: Performed By: #### U AMIC #### [facility] [address] [address] [address] Homero Damon Epithelial cells LM Ql (Urine sed) FEW Abnormal NONE SEEN /RARE The [facility] Comment on above: Performed By: #### U AMIC #### [facility] [address] [place] [address] Dr. Homero Damon Glucose Ql (U) Negative Normal NEGATIVE The [facility] Comment on above: Performed By: #### U AMIC #### [facility] [address] [place] [address] Dr. Homero Damon Hemoglobin Ql (U) Negative Normal NEGATIVE The [facility] Comment on above: Performed By: #### U AMIC #### [facility] [address] [address] [address] Homero Damon Ketones Ql (U) TRACE Abnormal NEGATIVE The [facility] Comment on above: Performed By: #### U AMIC #### [facility] [address] [address] [address] Homero Damon LEUKOCYTES TRACE Abnormal NEGATIVE The [facility] Comment on above: Performed By: #### U AMIC #### [facility] [address] [address] [address] Homero Damon MUCOUS NONE SEEN Normal NONE SEEN [facility] Comment on above: Performed By: #### U AMIC #### [facility] [address] [address] [address] Homero Damon Nitrite Ql (U) Negative Normal NEGATIVE The [facility] Comment on above: Performed By: #### U AMIC #### [facility] [address] [place] [address] Dr. Homero Damon pH (U) 6.0 [pH] Normal 5-9 The [facility] Comment on above: Performed By: #### U AMIC #### [facility] [address] [place] [address] Dr. Homero Damon RBC NONE SEEN Abnormal 0-2 The [facility] Comment on above: Performed By: #### U AMIC #### [facility] [address] [place] [address] Dr. Homero Damon SPEC GRAVITY 1.025 Normal 1.005-<=1.025 The [facility] Comment on above: Performed By: #### U AMIC #### [facility] [address] [place] [address] Dr. Homero Damon UA PROTEIN Negative Normal NEGATIVE/ TRACE The [facility] Comment on above: Performed By: #### U AMIC #### [facility] [address] [place] [address] Dr. Homero Damon Urobilinogen Qn (U) 0.2 {Saad'U}/dL Normal 0.2 - 1. 0 The [facility] Comment on above: Performed By: #### U AMIC #### [facility] [address] [place] [address] Dr. Homero Damon WBC 5-10 Abnormal NONE SEEN The [facility] Comment on above: Performed By: #### U AMIC #### [facility] [address] [place] [address] Dr. Homero Damon GLUCOSE - 1HRon 12-12-2021 Glucose [Mass/Vol] 128 mg/dL Critically high 74-106 T [facility] Comment on above: Performed By: #### G LU1HR #### [facility] [address] [place] [address] Dr. Homero Damon HEMOGRAM AND PLATELon 2021 Hematocrit (Bld) [Volume fraction] 38.8 % Normal 36.0-48.0 [facility] Comment on above: Performed By: #### H H #### [facility] [address] [place] [address] Dr. Homero Damon Hemoglobin (Bld) [Mass/Vol] 12.3 g/dL Normal 12.0-16.0 [facility] Comment on above: Performed By: #### H H #### [facility] [address] [place] [address] Dr. Homero Damon MCH (RBC) [Entitic mass] 25.8 pg Critically low 26.7-34.0 [facility] Comment on above: Performed By: #### H H #### [facility] [address] [place] [address] Dr. Homero Damon MCHC (RBC) [Mass/Vol] 31.7 g/dL Normal 29.9-35.2 The [facility] Comment on above: Performed By: #### H H #### [facility] [address] [place] [address] Dr. Homero Damon MCV (RBC) [Entitic vol] 81.3 fL Normal 81.0-99.0 [facility] Comment on above: Performed By: #### H H #### [facility] [address] [place] [address] Dr. Homero Damon PLT 304 103/ul Normal 150-450 The [facility] Comment on above: Performed By: #### H H #### [facility] [address] [place] [address] Dr. Homero Damon RBC 4.77 106/ul Normal 4.20-5.40 The [facility] Comment on above: Performed By: #### H H #### [facility] [address] [place] [address] Dr. Homero Damon WBC 9.9 103/ul Normal 4.0-11.0 The [facility] Comment on above: Performed By: #### H H #### [facility] [address] [place] [address] Dr. Homero Damon CULTURE URINEon 12-06-2021 CULTURE [...] Trimethoprim/Sulfame thoxazole <=20 S F Normal The [facility] Comment on above: Performed By: #### [facility] #### [facility] [address] [place] [address] Dr. Homero Damon Vital Signs Date Time Vital Sign Value Performing Clinician Faci lity 09-03-2023 10:39-0500 Body height 160 cm Marielena Hernandez MD Work Phone: [facility] 09-03-2023 10:39-0500 Body mass index (BMI) [Ratio] 41.45 kg/m2 Marielena Hernandez MD Work Phone: [facility] 09-03-2023 10:39-0500 Body weight 106.14 kg Marielena Hernandez MD Work Phone: [facility] 09-03-2023 10:39-0500 Diastolic blood pressure 88 mm[Hg] Marielena Hernandez MD Work Phone: [facility] 09-03-2023 10:39-0500 Heart rate 98 /min Marielena Hernandez MD Work Phone: [facility] 09-03-2023 10:39-0500 Systolic blood pressure 123 mm[Hg] Marielena Hernandez MD Work Phone: [facility] 08-21-2023 10:31-0500 Body mass index (BMI) [Ratio] 43.48 kg/m2 Trisha CASTELLANOS Work Phone: [facility] 08-21-2023 10:31-0500 Body weight 104.38 kg Trisha CASTELLANOS Work Phone: [facility] 08-21-2023 10:31-0500 Diastolic blood pressure 60 mm[Hg] Trisha CASTELLANOS Work Phone: [facility] 08-21-2023 10:31-0500 Systolic blood pressure 118 mm[Hg] Trisha CASTELLANOS Work Phone: [facility] Encounters Encounter Date Encounter Type Care Provider Facility Start: 10-15-2023 End: 10-15-2023 ambulatory TRISHA SLATER Not Available Start: 09-17-2023 End: 09-17-2023 ambulatory LEA DANO Not Available Start: 09-03-2023 End: 09-03[facility] Start: 09-03-2023 End: 09-03-2023 Office outpatient visit 10 minutes Marielena Hernandez MD Work Phone: [facility] [place] Comment on above: 22 weeks gestation o f (Primary Dx); Severe obesity with alveolar hypoventilation affecting , antepartum ([facility] Start: 08-21-2023 End: 08-21-2023 ambulatory TRISHA SLATER Not Available Start: 08-21-2023 End: 08-21-2023 Office outpatient visit 15 minutes Trisha CASTELLANOS Work Phone: [facility] Comment on above: Second trimester pre gnancy; Diabetes mellitus screening Start: 08-20-2023 Chart abstracting Marielena Hernandez MD Work Phone: [facility] Start: 07-23-2023 End: 07-23-2023 ambulatory LEA DANO [...] End: 02-21-[address] INDU BATES . Facility: Start: 12-12-2021 End: 12-13-[address] INDU BATES . Facility:[facility] Start: 12-04-2021 End: 12-04-[address] INDU BATES . Facility: Procedures Date Procedure Procedure Detail Performing Clinician [...] Td Vaccines (8 - Td or Tdap) [facility] Start: 09-17-2023 End: 09-17-2023 Patient encounter procedure 09/17/2023 10:50 AM EST Routine [facility] [address] [place] [id number] Lea Cole, DO [address] [place] [address] [facility] Start: 09-03-2023 End: 09-03-2023 Patient encounter procedure [facility] Start: 08-21-2023 End: 08-21-2024 CBC panel - Blood by Automated count CBC Lab Routine Diabetes mellitus screening Expected: 08/21/2023 (Approximate), Expires: 08/21/2024 [facility] Work Phone: Comment on above: Expected: 08/21/2023 (Approximate), Expires: 08/21/2024 Start: 08-21-2023 End: 08-21-2024 Measurement of glucose 1 hour after glucose challenge for glucose tolerance test Glucose tolerance, 1 hour Lab Routine Diabetes mellitus screening Expected: 08/21/2023 (Approximate), Expires: 08/21/2024 [facility] Comment on above: Expected: 08/21/2023 (Approximate), Expires: 08/21/2024 Start: 03-14-2023 Influenza vaccination Influenza Vacc ine [facility] Start: 2021 Screening for malign ant neoplasm of cervix Pap Smear [facility] Start: 2019 DTaP,Tdap and Td Vaccines (1 - Tdap) DTaP,Tdap and Td Vaccines (1 - Tdap) [facility] Start: 2018 Adult BMI Follow Up Plan Adult BMI Follow Up Plan [facility] Start: 2018 Adult BMI Screening Adult BMI Screen ing [facility] Start: 2012 Depression Screening Depression Scre ening [facility] Start: 2012 Tobacco Screening Tobacco Screening [facility] Immunizations Immunization Date Immunization Notes Care Provider Fa kusum 06-03-2013 influenza virus vaccine, unspecified formulation Marielena Hernandez MD Work Phone: [facility] Payers Date Payer Category Payer Medicaid [id number] 2022 Medicaid [id number] 2022 Medicaid [id number] 2000 Unknown [id number] 2.16.84 [id number] 2000 Unknown [id number] 2.16.84 [id number] 2000 Unknown [id number] 2.16.84 0.1.689556.3.579.2.593 2000 Unknown [id number] 2.16.84 0.1.837237.3.579.2.593 2000 Unknown [id number] 2.16.84 0.1.253572.3.579.2.593 2000 Unknown [id number] 2.16.84 0.1.551748.3.579.2.593 2000 Unknown [id number] 2.16.84 0.1.176473.3.579.2.593 2000 Unknown [id number] 2.16.8 40.1.396418.3.579.2.1286 2000 Unknown [id number] 2.16.8 40.1.752321.3.579.2.1286 2000 Unknown [id number] 2.16.84 0.1.573694.3.579.2.1259 2000 Unknown [id number] 2.16.84 0.1.877547.3.579.2.1259 2000 Unknown [id number] 2.16.84 0.1.721882.3.579.2.1259 2000 Unknown [id number] 2.16.84 0.1.129868.3.579.2.1259 2000 Unknown [id number] 2.16.840 .[id number] 1959 Unknown [id number] Social History Date Type Detail Facility Start: 04-08-2017 End: 09-03-2023 Tobacco smoking status INIS Never smoked tobacco [facility] Start: 04-08-2017 End: 09-03-2023 Tobacco use and exposure Smokeless tobacco non-user [facility] Start: 08-20-2023 End: 09-03-2023 Alcohol intake Current non-drinker of alcohol (finding) [facility] Start: 08-24-2020 End: 08-20-2023 History of Social function [facility] Start: 08-24-2020 End: 08-20-2023 Tobacco use panel [facility] Start: 04-14-2023 [facility] Start: 2000 Sex Assigned At Not on file P [facility] Start: 06-13-2023 Gender identity Identifies as female [...] Yes Have you been seen here at [facility] in a previous ? No Recent ER visits or hospitalizations? No Bring blood sugar log or meter with you today? (Please bring them with you for every visit at [facility]) N/A Traveled outside the country in the [...] TESTS AND ULTRASOUND REPORTS: Referral records and [facility] were reviewed Pertinent Ultrasound findings [...] patient is in complete care of her wash tank tender. Patient does have ultrasound and office visit [...] patient/family/caregiver Referring and communicating with other health healthcare liaison (not separately reported) Documenting clinical information in the electronic or other health record Marielena Hernandez MD [facility] [address] [facility] [address] [place] [address] [facility], the CDC, and other organizations representing maternal and public health professionals recommend that , , and lactating people and those considering receive the COVID-19 vaccination. Vaccination is the best method to reduce maternal and complications of SARS-CoV-2 infection. This document was created with [employer] technology. Though I make every effort to review the dictation as it is transcribed, on occasion the spoken word can be misinterpreted by the technology leading to inappropriate words, phrases, or sentences. This note is addressed to the requesting provider as a consultation for clinical guidance. Specific medical abbreviations are occasionally used and those are generally approved by the [place]?Board of?Obstetrics and?Gynecology?as well as?[place] s abbreviations. The above plan of care was based solely on the diagnoses for which a consultation was requested. ?More frequent testing may be indicated based on her other medical/obstetrical conditions. The management of other or medical conditions is beyond the scope of requested consultation and will continue to be followed by the primary wash tank tender or primary care provider. Note to patient: [...] of the practitioner. documented in this encounter [facility] History of Present illness Narrative 08-21-2023 [...] obesity with alveolar hypoventilation affecting , antepartum ([facility]) documented in this encounter [facility] [...] and content) DATE CREATED AUTHOR 11/20/2022 [facility] DATE CREATED AUTHOR AUTHOR'S ORGANIZ ATION 09/10/2023 [facility] DATE CREATED AUTHOR AUTHOR'S ORGANIZ ATION 10/16/2023 [facility] EPIC Reason for Visit (unrecogniz ed section and [...] BASED ON THE PRIMARY CLINICAL RECORDS. [facility]. provides no warranty or guarantee of the accuracy or completeness of information in this document.
== END 2023-10-21 11:31 | disposition home or self-care (01) ==
LOC: NOMS 11:30
PROVIDERS: PCP Nurse Practitioner Primary Care; Visit Provider Obstetrics & Gynecology
DX: O99.210 Obesity complicating pregnancy, unspecified trimester (principal); E66.2 Morbid (severe) obesity with alveolar hypoventilation; Z3A.28 28 weeks gestation of pregnancy
CPT/HCPCS: 76816

== ENCOUNTER 2023-11-19 07:07 | Outpatient (OUT) | payer MEDICAID, SELFPAY ==
--- NOTE | 2023-11-19 | US_ITS ---
[address] [address] Patient Name: JULIANA MICHELE MRN: [id number] date: 2000 Sex: F Assigned Patient Location: [facility] Current Patient Location: [facility] Accession/Order Number: [id number] Exam Date: 11/19/2023 09:05 Report Date: 11/19/2023 09:37 At the request of: LEA MATSON Procedure: US OB BPP w non-stress EXAMINATION: US OB BPP w non-stress HISTORY: Excessive growth O36.63X0 COMPARISON: No relevant comparison available. TECHNIQUE: Ultrasound biophysical profile was performed in the radiology department. FINDINGS: BREATHING MOVEMENTS: 2 GROSS BODY MOVEMENTS: 2 TONE: 2 QUALITATIVE AMNIOTIC FLUID VOLUME: 2 PRESENTATION: CEPHALIC HEART RATE: 150.0 bpm H.B./min AMNIOTIC FLUID VOLUME: 11.4 cm cm GESTATIONAL AGE: 33 weeks 2 days CONCLUSION: Total biophysical profile score: 8/8 Electronically authenticated by: BETTYE MICHELLE Date: 11/19/2023 09:37
--- OUTSIDE RECORDS SUMMARY | 2023-11-19 07:10 | XMS_ITS | CCD ---
Author Organization [facility] Care Team Providers Care Ripsaw Operator Name Role Phone PAULO ., DR GRIGGS Admitting Unavailabl e HOY ., DR OSUNA Primary Care Unavailable KARASIK ., DR GRIGGS Attending Unavailabl e KARASIK ., DR GRIGGS Consulting Unavailabl e KARASIK ., DR GRIGGS Admitting Unavailabl e KARASIK ., DR GRGIGS Attending Unavailabl e HOY ., DR OSUNA [...] UA Negative Negative - 4(70) +++ mg/dL [facility] Blood, UA Negative Negative - 50 Francis/mcL [facility] Clarity, UA Clear [facility] Color, UA Yellow [facility] Glucose, UA Negative Negative - 1999(110) ++++ mg/dL [facility] Interpretation and review of laboratory results Abnormal [facility] Ketones, UA Negative Negative - 160(16) ++++ mg/dL [facility] Leukocytes, UA Negative Negative - 500+++ Shravan/mcL [facility] Nitrite, UA Negative Negative - Positive [facility] pH, UA 6.0 5 - 9 [facility] Protein, UA Trace Negative - 1999(20) ++++ mg/dL [facility] Spec Grav, UA 1.030 1 - 1.03 [facility] Urobilinogen, UA 0.2 0.2 - 12 mg/dL [facility] AFP Single Marker Scrn, Mate rnal, Serumon 07-26-2023 Ms Alpha-Fetoprotein Negative [facility] Free Cell DNAon 2022 Free Cell Dna LOW RISK [facility] CBC without diffon Hematocrit (Bld) [Volume fraction] 38.7 % [facility] Hemoglobin (Bld) [Mass/Vol] 12.0 g/dL [facility] Platelets (Bld) [#/Vol] 365 10*3/uL [facility] HIV 1&2 AB/AG Screen (P24 AG )on 06-20-2023 HIV 1&2 AB/AG Non-Reactive [facility] Hepatitis B surface antigeno n 06-20-2023 Hepatitis B Surface Antigen Negative [facility] Hepatitis C(HCV) Ab w/ Refle x to PCRon 06-20-2023 HCV Ab Ql (S) Non-Reactive [facility] No Panel InformationOrdered By: Nicky Miles on 06-20-2023 [facility] Rubella IGG immune statuson 06-20-2023 Rubella immune IgG 2.23 IMMUNE [facility] Syphilis Total(Unknown Syphi lis Status)Ordered By: Nicky Miles on 06-20-2023 Syphilis Non-Reactive [facility] TSHon 06-20-2023 Thyroid Stimulating (3Rd Generation) Hormone/ Tsh 0.708 [facility] PAP ACOG PANEL 2: 21 to on 11-20-2022 . . Normal [facility] Comment on above: Performed By: #### [id number] #### [facility] [address] [address] [address] Homero Damon Age Gdln ACOG Testing - Normal [facility] Comment on above: Performed By: #### [id number] #### [facility] [address] [address] [address] Homero Damon DIAGNOSIS: Comment Normal [facility] Comment on above: Result Comment: NEGA TIVE FOR INTRAEPITHELIAL LESION OR MALIGNANCY. Performed By: #### [id number] #### [facility] [address] [place] [address] Dr. Homero Damon Methodology: Comment Normal [facility] Comment on above: Result Comment: This liquid based ThinPrep(R) pap test was screened with the use of an image guided system. Performed By: #### [id number] #### [facility] [address] [place] [address] Dr. Homero Damon Note: Comment Normal [facility] Comment on above: Result Comment: The Pap smear is a screening test designed to aid in the detection of premalignant and malignant conditions of the uterine cervix. It is not a diagnostic procedure and should not be used as the sole means of detecting cervical cancer. Both false-positive and false-negative reports do occur. . Performed By: #### [id number] #### [facility] [address] [place] [address] Dr. Homero Damon Performed by: Comment Normal [facility] Comment on above: Result Comment: Haris Alexis, Channel Man (ASCP) Performed By: #### [id number] #### [facility] [address] [place] [address] Dr. Homero Damon Reflex Criteria: Comment Normal [facility] Comment on above: Result Comment: The HPV DNA reflex criteria were not met with this specimen result therefore, no HPV testing was performed. . Performed By: #### [id number] #### [facility] [address] [place] [address] Dr. Homero Damon Specimen adequacy: Comment Normal [facility] Comment on above: Result Comment: Sati sfactory for evaluation. Endocervical and/or squamous metaplastic cells (endocervical component) are present. Performed By: #### [id number] #### [facility] [address] [place] [address] Dr. Homero Damon CANNABINOID (THC) CONFIRMATI ON, URINEon 03-19-2022 Cannabinoid Positive Abnormal [facility] Comment on above: Performed By: #### T HCCON #### [facility] [address] [place] [address] Dr. Homero Damon Carboxy THC GC/MS Conf 47 ng/mL Normal Cutoff=10 Th e [facility] Comment on above: Performed By: #### T HCCONF #### [facility] [address] [place] [address] Dr. Homero Damon CBC AUTO DIFFon 03-15-2022 BASO # 0.0 103/ul Normal 0.0-0.1 [facility] Comment on above: Performed By: #### C BC #### [facility] [address] [place] [address] Dr. Homero Damon Basophils/100 WBC (Bld) 0.2 % Normal 0.2-2.0 [facility] Comment on above: Performed By: #### C BC #### [facility] [address] [place] [address] Dr. Homero Damon EO # 0.2 103/ul Normal 0.0-0.7 [facility] Comment on above: Performed By: #### C BC #### [facility] [address] [place] [address] Dr. Homero Damon Eosinophils/100 WBC (Bld) 1.5 % Normal 0.9-7.0 [facility] Comment on above: Performed By: #### C BC #### [facility] [address] [place] [address] Dr. Homero Damon Erythrocyte distribution width (RBC) [Ratio] 16.1 % Critically high 11.0-15.0 [facility] Comment on above: Performed By: #### C BC #### [facility] [address] [place] [address] Dr. Homero Damon Hematocrit (Bld) [Volume fraction] 32.7 % Critically low 36.0-48.0 [facility] Comment on above: Performed By: #### C BC #### [facility] [address] [place] [address] Dr. Homero Damon Hemoglobin (Bld) [Mass/Vol] 9.7 g/dL Critically low 12.0-16.0 [facility] Comment on above: Performed By: #### C BC #### [facility] [address] [place] [address] Dr. Homero Damon IG # 0.04 10e3/ul Critically high 0.00-0.03 [facility] Comment on above: Performed By: #### C BC #### [facility] [address] [place] [address] Dr. Homero Damon IG % 0.4 % Normal 0.0-0.5 [facility] Comment on above: Performed By: #### C BC #### [facility] [address] [place] [address] Dr. Homero Damon LYMPH # 3.5 103/ul Normal 1.2-3.8 [facility] Comment on above: Performed By: #### C BC #### [facility] [address] [place] [address] Dr. Homero Damon Lymphocytes/100 WBC (Bld) 32.9 % Normal 20.5-60.0 [facility] Comment on above: Performed By: #### C BC #### [facility] [address] [place] [address] Dr. Homero Damon MANUAL DIFF REQ NO Normal [facility] Comment on above: Performed By: #### C BC #### [facility] [address] [place] [address] Dr. Homero Damon MCH (RBC) [Entitic mass] 23.0 pg Critically low 26.7-34.0 [facility] Comment on above: Performed By: #### C BC #### [facility] [address] [place] [address] Dr. Homero Damon MCHC (RBC) [Mass/Vol] 29.7 g/dL Critically low 29.9-35.2 [facility] Comment on above: Performed By: #### C BC #### [facility] [address] [place] [address] Dr. Homero Damon MCV (RBC) [Entitic vol] 77.7 fL Critically low 81.0-99.0 [facility] Comment on above: Performed By: #### C BC #### [facility] [address] [place] [address] Dr. Homero Damon MONO # 0.8 103/ul Normal 0.3-0.8 [facility] Comment on above: Performed By: #### C BC #### [facility] [address] [place] [address] Dr. Homero Damon Monocytes/100 WBC (Bld) 7.1 % Normal 1.7-12.0 [facility] Comment on above: Performed By: #### C BC #### [facility] [address] [place] [address] Dr. Homero Damon NEUT # 6.1 103/ul Normal 1.4-6.5 [facility] Comment on above: Performed By: #### C BC #### [facility] [address] [place] [address] Dr. Homero Damon Neutrophils/100 WBC (Bld) 57.9 % Normal 43.0-75.0 [facility] Comment on above: Performed By: #### C BC #### [facility] [address] [place] [address] Dr. Homero Damon Platelet mean volume (Bld) [Entitic vol] 11.0 fL Normal 9.5-13.5 [facility] Comment on above: Performed By: #### C BC #### [facility] [address] [place] [address] Dr. Homero Damon PLT 253 103/ul Normal 150-450 [facility] Comment on above: Performed By: #### C BC #### [facility] [address] [place] [address] Dr. Homero Damon RBC 4.21 106/ul Normal 4.20-5.40 [facility] Comment on above: Performed By: #### C BC #### [facility] [address] [place] [address] Dr. Homero Damon WBC 10.6 103/ul Normal 4.0-11.0 [facility] Comment on above: Performed By: #### C BC #### [facility] [address] [place] [address] Dr. Homero Damon CBC AUTO DIFFon 03-13-2022 BASO # 0.0 103/ul Normal 0.0-0.1 [facility] Comment on above: Performed By: #### T HCCONF #### [facility] [address] [place] [address] Dr. Homero Damon Basophils/100 WBC (Bld) 0.3 % Normal 0.2-2.0 [facility] Comment on above: Performed By: #### T HCCONF #### [facility] [address] [place] [address] Dr. Homero Damon EO # 0.0 103/ul Normal 0.0-0.7 [facility] Comment on above: Performed By: #### T HCCONF #### [facility] [address] [place] [address] Dr. Homero Damon Eosinophils/100 WBC (Bld) 0.2 % Critically low 0.9-7.0 [facility] Comment on above: Performed By: #### T HCCONF #### [facility] [address] [place] [address] Dr. Homero Damon Erythrocyte distribution width (RBC) [Ratio] 16.0 % Critically high 11.0-15.0 [facility] Comment on above: Performed By: #### T HCCONF #### [facility] [address] [place] [address] Dr. Homero Damon Hematocrit (Bld) [Volume fraction] 35.3 % Critically low 36.0-48.0 [facility] Comment on above: Performed By: #### T HCCONF #### [facility] [address] [place] [address] Dr. Homero Damon Hemoglobin (Bld) [Mass/Vol] 11.0 g/dL Critically low 12.0-16.0 [facility] Comment on above: Performed By: #### T HCCONF #### [facility] [address] [place] [address] Dr. Homero Damon IG # 0.04 10e3/ul Critically high 0.00-0.03 [facility] Comment on above: Performed By: #### T HCCONF #### [facility] [address] [address] [address] Homero Damon IG % 0.4 % Normal 0.0-0.5 [facility] Comment on above: Performed By: #### T HCCONF #### [facility] [address] [address] [address] Homero Damon LYMPH # 2.5 103/ul Normal 1.2-3.8 [facility] Comment on above: Performed By: #### T HCCONF #### [facility] [address] [address] [address] Homero Damon Lymphocytes/100 WBC (Bld) 26.4 % Normal 20.5-60.0 [facility] Comment on above: Performed By: #### T HCCONF #### [facility] [address] [place] [address] Dr. Homero Damon MANUAL DIFF REQ NO Normal [facility] Comment on above: Performed By: #### T HCCONF #### [facility] [address] [address] [address] Homero Damon MCH (RBC) [Entitic mass] 23.5 pg Critically low 26.7-34.0 [facility] Comment on above: Performed By: #### T HCCONF #### [facility] [address] [place] [address] Dr. Homero Damon MCHC (RBC) [Mass/Vol] 31.2 g/dL Normal 29.9-35.2 [facility] Comment on above: Performed By: #### T HCCONF #### [facility] [address] [address] [address] Homero Damon MCV (RBC) [Entitic vol] 75.4 fL Critically low 81.0-99.0 [facility] Comment on above: Performed By: #### T HCCONF #### [facility] [address] [place] [address] Dr. Homero Damon MONO # 0.6 103/ul Normal 0.3-0.8 [facility] Comment on above: Performed By: #### T HCCONF #### [facility] [address] [place] [address] Dr. Homero Damon Monocytes/100 WBC (Bld) 6.4 % Normal 1.7-12.0 [facility] Comment on above: Performed By: #### T HCCONF #### [facility] [address] [place] [address] Dr. Homero Damon NEUT # 6.4 103/ul Normal 1.4-6.5 [facility] Comment on above: Performed By: #### T HCCONF #### [facility] [address] [place] [address] Dr. Homero Damon Neutrophils/100 WBC (Bld) 66.3 % Normal 43.0-75.0 [facility] Comment on above: Performed By: #### T HCCONF #### [facility] [address] [place] [address] Dr. Homero Damon Platelet mean volume (Bld) [Entitic vol] 11.0 fL Normal 9.5-13.5 [facility] Comment on above: Performed By: #### T HCCONF #### [facility] [address] [place] [address] Dr. Homero Damon PLT 312 103/ul Normal 150-450 [facility] Comment on above: Performed By: #### T HCCONF #### [facility] [address] [place] [address] Dr. Homero Damon RBC 4.68 106/ul Normal 4.20-5.40 [facility] Comment on above: Performed By: #### T HCCONF #### [facility] [address] [place] [address] Dr. Homero Damon WBC 9.6 103/ul Normal 4.0-11.0 [facility] Comment on above: Performed By: #### T HCCONF #### [facility] [address] [place] [address] Dr. Homero Dam[facility] SARS-CoV-2 (COVID-19) RNA LORRAINE+probe Ql (Unsp spec) Not detected Normal NOT DETECTED [facility] Comment on above: Result Comment: When diagnostic [...] for this test is supported by the Produce Manager of Health and Human Service's declaration that [...] used). Performed By: #### C VDTBH #### [facility] [address] [place] [address] Dr. Homero Damon DRUG SCREEN RAPID (URINE)on 03-13-2022 AMP Negative Normal NEGATIVE [facility] Comment on above: Performed By: #### D RUGRPD #### [facility] [address] [place] [address] Dr. Homero Damon BAR Negative Normal NEGATIVE [facility] Comment on above: Performed By: #### D RUGRPD #### [facility] [address] [place] [address] Dr. Homero Damon BUP Negative Normal NEGATIVE [facility] Comment on above: Performed By: #### D RUGRPD #### [facility] [address] [place] [address] Dr. Homero Damon BZO Negative Normal NEGATIVE [facility] Comment on above: Performed By: #### D RUGRPD #### [facility] [address] [place] [address] Dr. Homero Damon MADHURI Negative Normal NEGATIVE [facility] Comment on above: Performed By: #### D RUGRPD #### [facility] [address] [place] [address] Dr. Homero Damon CUT-OFFS SEE BELOW Normal [facility] Comment on above: Result Comment: AMP [...] ng/mL Performed By: #### D RUGRPD #### [facility] [address] [place] [address] Dr. oHmero Damon DRUG CUT HEADER DRUG CLASS TEST SYSTEM CUT-OFF CONCENTRATIONS ARE FOLLOWS: Normal [facility] Comment on above: Performed By: #### D RUGRPD #### [facility] [address] [place] [address] Dr. Homero Damon mAMP Negative Normal NEGATIVE [facility] Comment on above: Performed By: #### D RUGRPD #### [facility] [address] [place] [address] Dr. Homero Damon MTD Negative Normal NEGATIVE [facility] Comment on above: Performed By: #### D RUGRPD #### [facility] [address] [place] [address] Dr. Homero Damon OPI Negative Normal NEGATIVE [facility] Comment on above: Performed By: #### D RUGRPD #### [facility] [address] [place] [address] Dr. Homero Damon OXY Negative Normal NEGATIVE [facility] Comment on above: Performed By: #### D RUGRPD #### [facility] [address] [place] [address] Dr. Homero Damon PCP Negative Normal NEGATIVE [facility] Comment on above: Performed By: #### D RUGRPD #### [facility] [address] [place] [address] Dr. Homero Damon PPX Negative Normal NEGATIVE [facility] Comment on above: Performed By: #### D RUGRPD #### [facility] [address] [place] [address] Dr. Homero Damon TCA Negative Normal NEGATIVE [facility] Comment on above: Performed By: #### D RUGRPD #### [facility] [address] [place] [address] Dr. Homero Damon THC Positive Abnormal NEGATIVE [facility] Comment on above: Performed By: #### D RUGRPD #### [facility] [address] [place] [address] Dr. Homero Damon TYPE AND SCREENon 03-13-2022 TYPE AND SCREEN Negative Normal [facility] Comment on above: Performed By: #### T HCCONF #### [facility] [address] [place] [address] Dr. Homero Damon UA (CLEAN/CATCH) EAP CLINICIAN/MICRO I F IND.on 03-10-2022 Bilirubin Ql (U) Negative Normal NEGATIVE [facility] Comment on above: Performed By: #### U ACSIND #### [facility] [address] [place] [address] Dr. Homero Damon Clarity (U) CLEAR Normal CLEAR [facility] Comment on above: Performed By: #### U ACSIND #### [facility] [address] [place] [address] Dr. Homero Damon Color (U) YELLOW Normal YELLOW [facility] Comment on above: Performed By: #### U ACSIND #### [facility] [address] [place] [address] Dr. Homero Damon Glucose Ql (U) Negative Normal NEGATIVE [facility] Comment on above: Performed By: #### U ACSIND #### [facility] [address] [place] [address] Dr. Homero Damon Hemoglobin Ql (U) Negative Normal NEGATIVE [facility] Comment on above: Performed By: #### U ACSIND #### [facility] [address] [place] [address] Dr. Homero Damon Ketones Ql (U) Negative Normal NEGATIVE [facility] Comment on above: Performed By: #### U ACSIND #### [facility] [address] [address] [address] Homero Damon LEUKOCYTES Negative Normal NEGATIVE [facility] Comment on above: Performed By: #### U ACSIND #### [facility] [address] [address] [address] Homero Damon Nitrite Ql (U) Negative Normal NEGATIVE [facility] Comment on above: Performed By: #### U ACSIND #### [facility] [address] [address] [address] Homero Damon pH (U) 6.0 [pH] Normal 5-9 [facility] Comment on above: Performed By: #### U ACSIND #### [facility] [address] [place] [address] Dr. Homero Damon SPEC GRAVITY 1.025 Normal 1.005-<=1.025 [facility] Comment on above: Performed By: #### U ACSIND #### [facility] [address] [place] [address] Dr. Homero Damon UA PROTEIN Negative Normal NEGATIVE/ TRACE [facility] Comment on above: Performed By: #### U ACSIND #### [facility] [address] [address] [address] Homero Damon UR MICRO IND NOT INDICATED Normal [facility] Comment on above: Performed By: #### U ACSIND #### [facility] [address] [place] [address] Dr. Homero Damon Urobilinogen Qn (U) 1.0 {Saad'U}/dL Normal 0.2 - 1. 0 [facility] Comment on above: Performed By: #### U ACSIND #### [facility] [address] [place] [address] Dr. Homero Damon GROUP B STREP CULTUREon 02-11 S. agalactiae Ag Ql (Unsp spec) Culture Observations: Called Group B Strep to Millie Armando, [employer] Worker on 02/25 @ 0917 Isolate 1 Streptococcus agalactiae Moderate growth of ORGANISM 1 Streptococcus agalactiae ANTIBIOTIC M.I.C RX STATUS Benzylpenicillin <=0.06 S F Ampicillin <=0.25 S F Cefotaxime <=0.12 S F Ceftriaxone <=0.12 S F Levofloxacin 0.5 S F Erythromycin >=8 R F Clindamycin >=1 R F Linezolid <=2 S F Vancomycin 0.5 S F Tetracycline >=16 R F Normal [facility] Comment on above: Performed By: #### T HCCONF #### [facility] [address] [place] [address] Dr. Homero Damon CULTURE URINEon 02-23-2022 CULTURE [...] Trimethoprim/Sulfame thoxazole <=20 S F Normal [facility] Comment on above: Performed By: #### U RCX #### [facility] [address] [place] [address] Dr. Homero Damon UA RANDOM W/MICROSCOPICon BACTERIA LARGE Abnormal NONE SEEN [facility] Comment on above: Performed By: #### U AMIC #### [facility] [address] [place] [address] Dr. Homero Damon Bilirubin Ql (U) Negative Normal NEGATIVE [facility] Comment on above: Performed By: #### U AMIC #### [facility] [address] [place] [address] Dr. Homero Damon CAST NONE SEEN Normal NONE SEEN [facility] Comment on above: Performed By: #### U AMIC #### [facility] [address] [place] [address] Dr. Homero Damon Clarity (U) CLEAR Normal CLEAR [facility] Comment on above: Performed By: #### U AMIC #### [facility] [address] [place] [address] Dr. Homero Damon Color (U) LT. YELLOW Normal YELLOW [facility] Comment on above: Performed By: #### U AMIC #### [facility] [facility] [address] [address] [address] Homero Damon Crystals LM Nom (Urine sed) NONE SEEN Normal NONE SEEN [facility] Comment on above: Performed By: #### U AMIC #### [facility] [address] [address] [address] Homero Damon Epithelial cells LM Ql (Urine sed) FEW Abnormal NONE SEEN /RARE [facility] Comment on above: Performed By: #### U AMIC #### [facility] [address] [place] [address] Dr. Homero Damon Glucose Ql (U) Negative Normal NEGATIVE [facility] Comment on above: Performed By: #### U AMIC #### [facility] [address] [place] [address] Dr. Homero Damon Hemoglobin Ql (U) Negative Normal NEGATIVE The [facility] Comment on above: Performed By: #### U AMIC #### [facility] [address] [place] [address] Dr. Homero Damon Ketones Ql (U) TRACE Abnormal NEGATIVE [facility] Comment on above: Performed By: #### U AMIC #### [facility] [address] [place] [address] Dr. Homero Damon LEUKOCYTES TRACE Abnormal NEGATIVE [facility] Comment on above: Performed By: #### U AMIC #### [facility] [address] [place] [address] Dr. Homero Damon MUCOUS NONE SEEN Normal NONE SEEN [facility] Comment on above: Performed By: #### U AMIC #### [facility] [address] [place] [address] Dr. Homero Damon Nitrite Ql (U) Negative Normal NEGATIVE [facility] Comment on above: Performed By: #### U AMIC #### [facility] [address] [address] [address] Homero Damon pH (U) 6.0 [pH] Normal 5-9 [facility] Comment on above: Performed By: #### U AMIC #### [facility] [address] [address] [address] Homero Damon RBC NONE SEEN Abnormal 0-2 [facility] Comment on above: Performed By: #### U AMIC #### [facility] [address] [place] [address] Dr. Homero Damon SPEC GRAVITY 1.025 Normal 1.005-<=1.025 [facility] Comment on above: Performed By: #### U AMIC #### [facility] [address] [place] [address] Dr. Homero Damon UA PROTEIN Negative Normal NEGATIVE/ TRACE [facility] Comment on above: Performed By: #### U AMIC #### [facility] [address] [place] [address] Dr. Homero Damon Urobilinogen Qn (U) 0.2 {Saad'U}/dL Normal 0.2 - 1. 0 [facility] Comment on above: Performed By: #### U AMIC #### [facility] [address] [place] [address] Dr. Homero Damon WBC 5-10 Abnormal NONE SEEN [facility] Comment on above: Performed By: #### U AMIC #### [facility] [address] [place] [address] Dr. Homero Damon GLUCOSE - 1HRon 12-12-2021 Glucose [Mass/Vol] 128 mg/dL Critically high 74-106 T [facility] Comment on above: Performed By: #### G LU1HR #### [facility] [address] [place] [address] Dr. Homero Damon HEMOGRAM AND PLATELon 2021 Hematocrit (Bld) [Volume fraction] 38.8 % Normal 36.0-48.0 [facility] Comment on above: Performed By: #### H H #### [facility] [address] [place] [address] Dr. Homero Damon Hemoglobin (Bld) [Mass/Vol] 12.3 g/dL Normal 12.0-16.0 [facility] Comment on above: Performed By: #### H H #### [facility] [address] [place] [address] Dr. Homero Damon MCH (RBC) [Entitic mass] 25.8 pg Critically low 26.7-34.0 [facility] Comment on above: Performed By: #### H H #### [facility] [address] [place] [address] Dr. Hmoero Damon MCHC (RBC) [Mass/Vol] 31.7 g/dL Normal 29.9-35.2 [facility] Comment on above: Performed By: #### H H #### [facility] [address] [place] [address] Dr. Homero Damon MCV (RBC) [Entitic vol] 81.3 fL Normal 81.0-99.0 [facility] Comment on above: Performed By: #### H H #### [facility] [address] [place] [address] Dr. Homero Damon PLT 304 103/ul Normal 150-450 [facility] Comment on above: Performed By: #### H H #### [facility] [address] [place] [address] Dr. Homero Damon RBC 4.77 106/ul Normal 4.20-5.40 [facility] Comment on above: Performed By: #### H H #### [facility] [address] [place] [address] Dr. Homero Damon WBC 9.9 103/ul Normal 4.0-11.0 [facility] Comment on above: Performed By: #### H H #### [facility] [address] [place] [address] Dr. Homero Damon CULTURE URINEon 12-06-2021 CULTURE [...] Trimethoprim/Sulfame thoxazole <=20 S F Normal [facility] Comment on above: Performed By: #### T HCCONF #### [facility] [address] [place] [address] Dr. Homero Damon Vital Signs Date Time Vital Sign Value Performing Clinician Faci lity 09-03-2023 10:39-0500 Body height 160 cm Marielena Hernandez MD Work Phone: [facility] 09-03-2023 10:39-0500 Body mass index (BMI) [Ratio] 41.45 kg/m2 Marielena Hernandez MD Work Phone: [facility] 09-03-2023 10:39-0500 Body weight 106.14 kg Marielena Hernandez MD Work Phone: [facility] 09-03-2023 10:39-0500 Diastolic blood pressure 88 mm[Hg] Marielena Hernandez MD Work Phone: [facility] 09-03-2023 10:39-0500 Heart rate 98 /min Marielena Hernandez MD Work Phone: [facility] 09-03-2023 10:39-0500 Systolic blood pressure 123 mm[Hg] Marielena Hernandez MD Work Phone: [facility] 08-21-2023 10:31-0500 Body mass index (BMI) [Ratio] 43.48 kg/m2 Trisha CASTELLANOS Work Phone: [facility] 08-21-2023 10:31-0500 Body weight 104.38 kg Trisha CASTELLANOS Work Phone: [facility] 08-21-2023 10:31-0500 Diastolic blood pressure 60 mm[Hg] Trisha CASTELLANOS Work Phone: [facility] 08-21-2023 10:31-0500 Systolic blood pressure 118 mm[Hg] Trisha CASTELLANOS Work Phone: [facility] Encounters Encounter Date Encounter Type Care Provider Facility Start: 11-13-2023 End: 11-13-2023 ambulatory TRISHA SLATER Not Available Start: 10-30-2023 End: 10-30-2023 ambulatory LEA DANO Not Available Start: 10-15-2023 End: 10-15-2023 ambulatory TRISHA BRYON Not Available Start: 09-17-2023 End: 09-17-2023 ambulatory LEA DANO Not Available Start: 09-03-2023 End: 09-03-[facility] Start: 09-03-2023 End: 09-03-2023 Office outpatient visit 10 minutes Marielena Hernandez MD Work Phone: [facility] [place] Comment on above: 22 weeks gestation o f (Primary Dx); Severe obesity with alveolar hypoventilation affecting , antepartum ([facility]) Start: 08-21-2023 End: 08-21-2023 ambulatory TRISHA SLATER Not Available Start: 08-21-2023 End: 08-21-2023 Office outpatient visit 15 minutes Trisha CASTELLANOS Work Phone: [facility] Comment on above: Second trimester pre gnancy; Diabetes mellitus screening Start: 08-20-2023 Chart abstracting Marielena Hernandez MD Work Phone: [facility] Start: 07-23-2023 End: 07-23-2023 ambulatory LEA DANO Not Available Start: 06-20-2023 End: 06-20-2023 ambulatory LEA DANO Not Available Start: 11-13-2022 End: 11-13-[address] INDU BATES . Facility:[facility] Start: 03-19-2022 End: 03-19-[address] INDU BATES . Facility:[facility] Start: 03-13-2022 End: 03-15-2022 Evaluation and management of inpatient DR THAO COLLAZO . Facility: Start: 03-10-2022 End: 03-10-[address] INDU [...] Td Vaccines (8 - Td or Tdap) [facility] Start: 09-17-2023 End: 09-17-2023 Patient encounter procedure 09/17/2023 10:50 AM EST Routine [facility] [address] [place] [address] [place] [address] Lea Cole, DO [address] [place] [address] [place] [address] [facility] Start: 09-03-2023 End: 09-03-2023 Patient encounter procedure [facility] Start: 08-21-2023 End: 08-21-2024 CBC panel - Blood by Automated count CBC Lab Routine Diabetes mellitus screening Expected: 08/21/2023 (Approximate), Expires: 08/21/2024 [facility] Work Phone: Comment on above: Expected: 08/21/2023 (Approximate), Expires: 08/21/2024 Start: 08-21-2023 End: 08-21-2024 Measurement of glucose 1 hour after glucose challenge for glucose tolerance test Glucose tolerance, 1 hour Lab Routine Diabetes mellitus screening Expected: 08/21/2023 (Approximate), Expires: 08/21/2024 [facility] Comment on above: Expected: 08/21/2023 (Approximate), Expires: 08/21/2024 Start: 03-14-2023 Influenza vaccination Influenza Vacc ine [facility] Start: 2021 Screening for malign ant neoplasm of cervix Pap Smear [facility] Start: 2019 DTaP,Tdap and Td Vaccines (1 - Tdap) DTaP,Tdap and Td Vaccines (1 - Tdap) [facility] Start: 2018 Adult BMI Follow Up Plan Adult BMI Follow Up Plan [facility] Start: 2018 Adult BMI Screening Adult BMI Screen ing [facility] Start: 2012 Depression Screening Depression Scre ening [facility] Start: 2012 Tobacco Screening Tobacco Screening [facility] Immunizations Immunization Date Immunization Notes Care Provider Dioni noe 06-03-2013 influenza virus vaccine, unspecified formulation Marielena Hernandez MD Work Phone: [facility] Payers Date Payer Category Payer Medicaid [id number] 2022 Medicaid [id number] 2022 Medicaid [id number] 2000 Unknown [id number] 2.16.84 [id number] 2000 Unknown [id number] 2.16.84 0.1.227874.3.579.2.593 2000 Unknown [id number] 2.16.84 0.1.860160.3.579.2.593 2000 Unknown [id number] 2.16.84 0.1.361253.3.579.2.593 2000 Unknown [id number] 2.16.84 0.1.408996.3.579.2.593 2000 Unknown [id number] 2.16.84 0.1.869000.3.579.2.593 2000 Unknown [id number] 2.16.84 0.1.334197.3.579.2.593 2000 Unknown [id number] 2.16.8 40.1.398141.3.579.2.1286 2000 Unknown [id number] 2.16.8 40.1.914742.3.579.2.1286 2000 Unknown [id number] 2.16.84 0.1.526221.3.579.2.1259 2000 Unknown [id number] 2.16.84 0.1.714310.3.579.2.1259 2000 Unknown [id number] 2.16.84 0.1.802877.3.579.2.1259 2000 Unknown [id number] 2.16.84 0.1.379806.3.579.2.1259 2000 Unknown [id number] 2.16.84 0.1.259631.3.579.2.1259 2000 Unknown [id number] 2.16.84 0.1.553009.3.579.2.1259 2000 Unknown [id number] 2.16.840 .1.278061.3.579.2.1259 1959 Unknown [id number] Social History Date Type Detail Facility Start: 04-08-2017 End: 09-03-2023 Tobacco smoking status NHIS Never smoked tobacco [facility] Start: 04-08-2017 End: 09-03-2023 Tobacco use and exposure Smokeless tobacco non-user [facility] Start: 08-20-2023 End: 09-03-2023 Alcohol intake Current non-drinker of alcohol (finding) [facility] Start: 08-24-2020 End: 08-20-2023 History of Social function [facility] Start: 08-24-2020 End: 08-20-2023 Tobacco use panel [facility] Childcare Unknown [facility] Start: 04-14-2023 [facility] Start: 2000 Sex Assigned At Not on file [facility] Start: 06-13-2023 Gender identity Identifies as [...] Yes Have you been seen here at [facility] in a previous ? No Recent ER visits or hospitalizations? No Bring blood sugar log or meter with you today? (Please bring them with you for every visit at [facility]) N/A Traveled outside the country in the [...] DNA (13,18,21, sex chromosomes) Carrier screening: Coby Tosin (baby girl) PAST OBSTETRICAL HISTORY: OB History [...] TESTS AND ULTRASOUND REPORTS: Referral records and [facility] chart were reviewed Pertinent Ultrasound findings [...] patient is in complete care of her service tech. Patient does have ultrasound and office visit [...] patient/family/caregiver Referring and communicating with other health critical care cns (not separately reported) Documenting clinical information in the electronic or other health record Marielena Henrandez MD Maternal- [facility] [address] [place] [address] [facility], the CDC, and other organizations representing maternal and public health professionals recommend that , , and lactating people and those considering receive the COVID-19 vaccination. Vaccination is the best method to reduce maternal and complications of SARS-CoV-2 infection. This document was created with [employer] technology. Though I make every effort to review the dictation as it is transcribed, on occasion the spoken word can be misinterpreted by the technology leading to inappropriate words, phrases, or sentences. This note is addressed to the requesting provider as a consultation for clinical guidance. Specific medical abbreviations are occasionally used and those are generally approved by the [place]?Board of?Obstetrics and?Gynecology?as well as?Terrance grimm abbreviations. The above plan of care was based solely on the diagnoses for which a consultation was requested. ?More frequent testing may be indicated based on her other medical/obstetrical conditions. The management of other or medical conditions is beyond the scope of requested consultation and will continue to be followed by the primary service tech or primary care provider. Note to patient: [...] of the practitioner. documented in this encounter [facility] History of Present illness Narrative 08-21-2023 EMANUEL [...] obesity with alveolar hypoventilation affecting , antepartum ([facility]) documented in this encounter [facility] [...] content) DATE CREATED AUTHOR 11/20/2022 [facility] DATE CREATED AUTHOR AUTHOR'S ORGANIZ ATION 09/10/2023 [facility] DATE CREATED AUTHOR AUTHOR'S ORGANIZ ATION 11/14/2023 [facility] EPIC Reason for Visit (unrecogniz [...] BE BASED ON THE PRIMARY CLINICAL RECORDS. [facility]. provides no warranty or guarantee of the accuracy or completeness of information in this document.
[2023-11-19 09:30] VITALS: BP 92/59; PULSE 109
== END 2023-11-19 10:02 | disposition home or self-care (01) ==
LOC: US 07:07 → FBC 09:09
PROVIDERS: PCP Nurse Practitioner Primary Care; Visit Provider Obstetrics & Gynecology
DX: O36.63X0 Maternal care for excessive fetal growth, third trimester, not applicable or unspecified (principal); Z3A.33 33 weeks gestation of pregnancy
CPT/HCPCS: 76818

== ENCOUNTER 2023-11-20 08:32 | Outpatient (OUT) | payer MEDICAID, SELFPAY ==
--- NOTE | 2023-11-20 08:36 | US_ITS ---
[address] [address] Patient Name: JULIANA MICHELE MRN: [id number] date: 2000 Sex: F Assigned Patient Location: [facility] Current Patient Location: Accession/Order Number: [id number] Exam Date: 11/20/2023 08:37 Report Date: 11/20/2023 17:31 At the request of: KINDRA SLATER Procedure: US OB growth EXAMINATION: US OB growth HISTORY: GDM COMPARISON: No relevant comparison available. FINDINGS: Heart Rate: 155.0 bpm Number: 1.0 Position: CEPHALIC Amniotic Fluid Volume: 11.7 cm Maximum Vertical Pocket: 3.6 cm BIOMETRY: BPD: 8.0 cm cm; 31 weeks 6 days; 9% HC: 29.9 cmcm; 33 weeks 0 days ; 10% AC: 29.3 cm cm; 33 weeks 2 days; 48% FL: 6.3 cm cm; 32 weeks 4 days; 17% EFW: 2078.5 grams; 27% FL/AC: 21.4 FL/BPD: 79.0 HC/AC: 1.0 GESTATIONAL AGE: Age by EDC: 33 weeks 3 days GILBERTO by EDC: 01/05/2024 Age by US: 32 weeks 5 days GILBERTO by US: 01/10/2024 US/US OB growth IMPRESSION: 1. Single live intrauterine with growth detailed above. Electronically authenticated by: COLLETTE BAER Date: 11/20/2023 17:31
--- OUTSIDE RECORDS SUMMARY | 2023-11-20 08:47 | XMS_ITS | CCD ---
Author Organization [facility] Care Team Providers Care Manager Skilled Name Role Phone PAULO ., DR GRIGGS [...] NEYDA PEREZ Consulting Unavailable KARASIK ., DR GRIGSG Procedure Practitioner Anuja vailable Unavailable Primary Care [...] UA Negative Negative - 4(70) +++ mg/dL [facility] Blood, UA Negative Negative - 50 Francis/mcL [facility] Clarity, UA Clear [facility] Color, UA Yellow [facility] Glucose, UA Negative Negative - 1999(110) ++++ mg/dL [facility] Interpretation and review of laboratory results Abnormal [facility] Ketones, UA Negative Negative - 160(16) ++++ mg/dL [facility] Leukocytes, UA Negative Negative - 500+++ Shravan/mcL [facility] Nitrite, UA Negative Negative - Positive [facility] pH, UA 6.0 5 - 9 [facility] Protein, UA Trace Negative - 1999(20) ++++ mg/dL [facility] Spec Grav, UA 1.030 1 - 1.03 [facility] Urobilinogen, UA 0.2 0.2 - 12 mg/dL [facility] AFP Single Marker Scrn, Mate rnal, Serumon 07-26-2023 Ms Alpha-Fetoprotein Negative [facility] Free Cell DNAon 2022 Free Cell Dna LOW RISK [facility] CBC without diffon Hematocrit (Bld) [Volume fraction] 38.7 % [facility] Hemoglobin (Bld) [Mass/Vol] 12.0 g/dL [facility] Platelets (Bld) [#/Vol] 365 10*3/uL [facility] HIV 1&2 AB/AG Screen (P24 AG )on 06-20-2023 HIV 1&2 AB/AG Non-Reactive [facility] Hepatitis B surface antigeno n 06-20-2023 Hepatitis B Surface Antigen Negative [facility] Hepatitis C(HCV) Ab w/ Refle x to PCRon 06-20-2023 HCV Ab Ql (S) Non-Reactive [facility] No Panel InformationOrdered By: Nicky Miles on 06-20-2023 [facility] Rubella IGG immune statuson 06-20-2023 Rubella immune IgG 2.23 IMMUNE [facility] Syphilis Total(Unknown Syphi lis Status)Ordered By: Nicky Miles on 06-20-2023 Syphilis Non-Reactive [facility] TSHon 06-20-2023 Thyroid Stimulating (3Rd Generation) Hormone/ Tsh 0.708 [facility] PAP ACOG PANEL 2: 21 to on 11-20-2022 . . Normal [facility] Comment on above: Performed By: #### [id number] #### [facility] [address] [address] [address] Homero Damon Age Gdln ACOG Testing - Normal [facility] Comment on above: Performed By: #### [id number] #### [facility] [address] [address] [address] Homero Damon DIAGNOSIS: Comment Normal [facility] Comment on above: Result Comment: NEGA TIVE FOR INTRAEPITHELIAL LESION OR MALIGNANCY. Performed By: #### [id number] #### [facility] [address] [place] [address] Dr. Homero Damon Methodology: Comment Normal [facility] Comment on above: Result Comment: This liquid based ThinPrep(R) pap test was screened with the use of an image guided system. Performed By: #### [id number] #### [facility] [address] [place] [address] Dr. Homero Damon Note: Comment Normal [facility] Comment on above: Result Comment: The Pap smear is a screening test designed to aid in the detection of premalignant and malignant conditions of the uterine cervix. It is not a diagnostic procedure and should not be used as the sole means of detecting cervical cancer. Both false-positive and false-negative reports do occur. . Performed By: #### [id number] #### [facility] [address] [place] [address] Dr. Homero Damon Performed by: Comment Normal [facility] Comment on above: Result Comment: Haris Alexis, Termite Treater (ASCP) Performed By: #### [id number] #### [facility] [address] [place] [address] Dr. Homero Damon Reflex Criteria: Comment Normal [facility] Comment on above: Result Comment: The HPV DNA reflex criteria were not met with this specimen result therefore, no HPV testing was performed. . Performed By: #### [id number] #### [facility] [address] [place] [address] Dr. Homero Damon Specimen adequacy: Comment Normal [facility] Comment on above: Result Comment: Sati sfactory for evaluation. Endocervical and/or squamous metaplastic cells (endocervical component) are present. Performed By: #### [id number] #### [facility] [address] [place] [address] Dr. Homero Damon CANNABINOID (THC) CONFIRMATI ON, URINEon 03-19-2022 Cannabinoid Positive Abnormal [facility] Comment on above: Performed By: #### T HCCON #### [facility] [address] [place] [address] Dr. Homero Damon Carboxy THC GC/MS Conf 47 ng/mL Normal Cutoff=10 Th e [facility] Comment on above: Performed By: #### T HCCONF #### [facility] [address] [place] [address] Dr. Homero Damon CBC AUTO DIFFon 03-15-2022 BASO # 0.0 103/ul Normal 0.0-0.1 [facility] Comment on above: Performed By: #### C BC #### [facility] [address] [place] [address] Dr. Homero Damon Basophils/100 WBC (Bld) 0.2 % Normal 0.2-2.0 [facility] Comment on above: Performed By: #### C BC #### [facility] [address] [place] [address] Dr. Homero Damon EO # 0.2 103/ul Normal 0.0-0.7 [facility] Comment on above: Performed By: #### C BC #### [facility] [address] [place] [address] Dr. Homero Damon Eosinophils/100 WBC (Bld) 1.5 % Normal 0.9-7.0 [facility] Comment on above: Performed By: #### C BC #### [facility] [address] [place] [address] Dr. Homero Damon Erythrocyte distribution width (RBC) [Ratio] 16.1 % Critically high 11.0-15.0 [facility] Comment on above: Performed By: #### C BC #### [facility] [address] [place] [address] Dr. Homero Damon Hematocrit (Bld) [Volume fraction] 32.7 % Critically low 36.0-48.0 [facility] Comment on above: Performed By: #### C BC #### [facility] [address] [place] [address] Dr. Homero Damon Hemoglobin (Bld) [Mass/Vol] 9.7 g/dL Critically low 12.0-16.0 [facility] Comment on above: Performed By: #### C BC #### [facility] [address] [place] [address] Dr. Homero Damon IG # 0.04 10e3/ul Critically high 0.00-0.03 [facility] Comment on above: Performed By: #### C BC #### [facility] [address] [place] [address] Dr. Homero Damon IG % 0.4 % Normal 0.0-0.5 [facility] Comment on above: Performed By: #### C BC #### [facility] [address] [place] [address] Dr. Homero Damon LYMPH # 3.5 103/ul Normal 1.2-3.8 [facility] Comment on above: Performed By: #### C BC #### [facility] [address] [place] [address] Dr. Homero Damon Lymphocytes/100 WBC (Bld) 32.9 % Normal 20.5-60.0 [facility] Comment on above: Performed By: #### C BC #### [facility] [address] [place] [address] Dr. Homero Damon MANUAL DIFF REQ NO Normal [facility] Comment on above: Performed By: #### C BC #### [facility] [address] [place] [address] Dr. Homero Damon MCH (RBC) [Entitic mass] 23.0 pg Critically low 26.7-34.0 [facility] Comment on above: Performed By: #### C BC #### [facility] [address] [place] [address] Dr. Homero Damon MCHC (RBC) [Mass/Vol] 29.7 g/dL Critically low 29.9-35.2 [facility] Comment on above: Performed By: #### C BC #### [facility] [address] [place] [address] Dr. Homero Damon MCV (RBC) [Entitic vol] 77.7 fL Critically low 81.0-99.0 [facility] Comment on above: Performed By: #### C BC #### [facility] [address] [place] [address] Dr. Homero Damon MONO # 0.8 103/ul Normal 0.3-0.8 [facility] Comment on above: Performed By: #### C BC #### [facility] [address] [place] [address] Dr. Homero Damon Monocytes/100 WBC (Bld) 7.1 % Normal 1.7-12.0 [facility] Comment on above: Performed By: #### C BC #### [facility] [address] [place] [address] Dr. Homero Damon NEUT # 6.1 103/ul Normal 1.4-6.5 [facility] Comment on above: Performed By: #### C BC #### [facility] [address] [place] [address] Dr. Homero Damon Neutrophils/100 WBC (Bld) 57.9 % Normal 43.0-75.0 [facility] Comment on above: Performed By: #### C BC #### [facility] [address] [place] [address] Dr. Homero Damon Platelet mean volume (Bld) [Entitic vol] 11.0 fL Normal 9.5-13.5 [facility] Comment on above: Performed By: #### C BC #### [facility] [address] [place] [address] Dr. Homero Damon PLT 253 103/ul Normal 150-450 [facility] Comment on above: Performed By: #### C BC #### [facility] [address] [place] [address] Dr. Homero Damon RBC 4.21 106/ul Normal 4.20-5.40 [facility] Comment on above: Performed By: #### C BC #### [facility] [address] [place] [address] Dr. Homero Damon WBC 10.6 103/ul Normal 4.0-11.0 [facility] Comment on above: Performed By: #### C BC #### [facility] [address] [place] [address] Dr. Homero Damon CBC AUTO DIFFon 03-13-2022 BASO # 0.0 103/ul Normal 0.0-0.1 [facility] Comment on above: Performed By: #### T HCCONF #### [facility] [address] [place] [address] Dr. Homero Damon Basophils/100 WBC (Bld) 0.3 % Normal 0.2-2.0 [facility] Comment on above: Performed By: #### T HCCONF #### [facility] [address] [place] [address] Dr. Homero Damon EO # 0.0 103/ul Normal 0.0-0.7 [facility] Comment on above: Performed By: #### T HCCONF #### [facility] [address] [place] [address] Dr. Homero Damon Eosinophils/100 WBC (Bld) 0.2 % Critically low 0.9-7.0 [facility] Comment on above: Performed By: #### T HCCONF #### [facility] [address] [place] [address] Dr. Homero Damon Erythrocyte distribution width (RBC) [Ratio] 16.0 % Critically high 11.0-15.0 [facility] Comment on above: Performed By: #### T HCCONF #### [facility] [address] [place] [address] Dr. Homero Damon Hematocrit (Bld) [Volume fraction] 35.3 % Critically low 36.0-48.0 [facility] Comment on above: Performed By: #### T HCCONF #### [facility] [address] [place] [address] Dr. Homero Damon Hemoglobin (Bld) [Mass/Vol] 11.0 g/dL Critically low 12.0-16.0 [facility] Comment on above: Performed By: #### T HCCONF #### [facility] [address] [place] [address] Dr. Homero Damon IG # 0.04 10e3/ul Critically high 0.00-0.03 [facility] Comment on above: Performed By: #### T HCCONF #### [facility] [address] [address] [address] Homero Damon IG % 0.4 % Normal 0.0-0.5 [facility] Comment on above: Performed By: #### T HCCONF #### [facility] [address] [address] [address] Homero Damon LYMPH # 2.5 103/ul Normal 1.2-3.8 [facility] Comment on above: Performed By: #### T HCCONF #### [facility] [address] [address] [address] Homero Damon Lymphocytes/100 WBC (Bld) 26.4 % Normal 20.5-60.0 [facility] Comment on above: Performed By: #### T HCCONF #### [facility] [address] [place] [address] Dr. Homero Damon MANUAL DIFF REQ NO Normal [facility] Comment on above: Performed By: #### T HCCONF #### [facility] [address] [address] [address] Homero Damon MCH (RBC) [Entitic mass] 23.5 pg Critically low 26.7-34.0 [facility] Comment on above: Performed By: #### T HCCONF #### [facility] [address] [place] [address] Dr. Homero Damon MCHC (RBC) [Mass/Vol] 31.2 g/dL Normal 29.9-35.2 [facility] Comment on above: Performed By: #### T HCCONF #### [facility] [address] [address] [address] Homero Damon MCV (RBC) [Entitic vol] 75.4 fL Critically low 81.0-99.0 [facility] Comment on above: Performed By: #### T HCCONF #### [facility] [address] [place] [address] Dr. Homero Damon MONO # 0.6 103/ul Normal 0.3-0.8 [facility] Comment on above: Performed By: #### T HCCONF #### [facility] [address] [place] [address] Dr. Homero Damon Monocytes/100 WBC (Bld) 6.4 % Normal 1.7-12.0 [facility] Comment on above: Performed By: #### T HCCONF #### [facility] [address] [place] [address] Dr. Homero Damon NEUT # 6.4 103/ul Normal 1.4-6.5 [facility] Comment on above: Performed By: #### T HCCONF #### [facility] [address] [place] [address] Dr. Homero Damon Neutrophils/100 WBC (Bld) 66.3 % Normal 43.0-75.0 [facility] Comment on above: Performed By: #### T HCCONF #### [facility] [address] [place] [address] Dr. Homero Damon Platelet mean volume (Bld) [Entitic vol] 11.0 fL Normal 9.5-13.5 [facility] Comment on above: Performed By: #### T HCCONF #### [facility] [address] [place] [address] Dr. Homero Damon PLT 312 103/ul Normal 150-450 [facility] Comment on above: Performed By: #### T HCCONF #### [facility] [address] [place] [address] Dr. Homero Damon RBC 4.68 106/ul Normal 4.20-5.40 [facility] Comment on above: Performed By: #### T HCCONF #### [facility] [address] [place] [address] Dr. Homero Damon WBC 9.6 103/ul Normal 4.0-11.0 [facility] Comment on above: Performed By: #### T HCCONF #### [facility] [address] [place] [address] Dr. Homero Damon [facility] SARS-CoV-2 (COVID-19) RNA LORRAINE+probe Ql (Unsp spec) Not detected Normal NOT DETECTED [facility] Comment on above: Result Comment: When [...] for this test is supported by the [employer] Installer of Health and Human Service's declaration that [...] used). Performed By: #### C VDTBH #### [facility] [address] [place] [address] Dr. Homero Damon DRUG SCREEN RAPID (URINE)on 03-13-2022 AMP Negative Normal NEGATIVE [facility] Comment on above: Performed By: #### D RUGRPD #### [facility] [address] [place] [address] Dr. Homero Damon BAR Negative Normal NEGATIVE [facility] Comment on above: Performed By: #### D RUGRPD #### [facility] [address] [place] [address] Dr. Homero Damon BUP Negative Normal NEGATIVE [facility] Comment on above: Performed By: #### D RUGRPD #### [facility] [address] [place] [address] Dr. Homero Damon BZO Negative Normal NEGATIVE [facility] Comment on above: Performed By: #### D RUGRPD #### [facility] [address] [place] [address] Dr. Homero Damon MADHURI Negative Normal NEGATIVE [facility] Comment on above: Performed By: #### D RUGRPD #### [facility] [address] [place] [address] Dr. Homero Damon CUT-OFFS SEE BELOW Normal [facility] Comment on above: Result Comment: AMP [...] ng/mL Performed By: #### D RUGRPD #### [facility] [address] [place] [address] Dr. Homero Damon DRUG CUT HEADER DRUG CLASS TEST SYSTEM CUT-OFF CONCENTRATIONS ARE FOLLOWS: Normal [facility] Comment on above: Performed By: #### D RUGRPD #### [facility] [address] [place] [address] Dr. Homero Damon mAMP Negative Normal NEGATIVE [facility] Comment on above: Performed By: #### D RUGRPD #### [facility] [address] [place] [address] Dr. Homero Damon MTD Negative Normal NEGATIVE [facility] Comment on above: Performed By: #### D RUGRPD #### [facility] [address] [place] [address] Dr. Homero Damon OPI Negative Normal NEGATIVE [facility] Comment on above: Performed By: #### D RUGRPD #### [facility] [address] [place] [address] Dr. Homero Damon OXY Negative Normal NEGATIVE [facility] Comment on above: Performed By: #### D RUGRPD #### [facility] [address] [place] [address] Dr. Homero Damon PCP Negative Normal NEGATIVE [facility] Comment on above: Performed By: #### D RUGRPD #### [facility] [address] [place] [address] Dr. Homero Damon PPX Negative Normal NEGATIVE [facility] Comment on above: Performed By: #### D RUGRPD #### [facility] [address] [place] [address] Dr. Homero Damon TCA Negative Normal NEGATIVE [facility] Comment on above: Performed By: #### D RUGRPD #### [facility] [address] [place] [address] Dr. Homero Damon THC Positive Abnormal NEGATIVE [facility] Comment on above: Performed By: #### D RUGRPD #### [facility] [address] [place] [address] Dr. Homero Damon TYPE AND SCREENon 03-13-2022 TYPE AND SCREEN Negative Normal [facility] Comment on above: Performed By: #### T HCCONF #### [facility] [address] [place] [address] Dr. Homero Damon UA (CLEAN/CATCH) VOCATIONAL REHABILITATION SPECIALIST/MICRO I F IND.on 03-10-2022 Bilirubin Ql (U) Negative Normal NEGATIVE [facility] Comment on above: Performed By: #### U ACSIND #### [facility] [address] [place] [address] Dr. Homero Damon Clarity (U) CLEAR Normal CLEAR [facility] Comment on above: Performed By: #### U ACSIND #### [facility] [address] [place] [address] Dr. Homero Damon Color (U) YELLOW Normal YELLOW [facility] Comment on above: Performed By: #### U ACSIND #### [facility] [address] [place] [address] Dr. Homero Damon Glucose Ql (U) Negative Normal NEGATIVE [facility] Comment on above: Performed By: #### U ACSIND #### [facility] [address] [place] [address] Dr. Homero Damon Hemoglobin Ql (U) Negative Normal NEGATIVE [facility] Comment on above: Performed By: #### U ACSIND #### [facility] [address] [place] [address] Dr. Homero Damon Ketones Ql (U) Negative Normal NEGATIVE [facility] Comment on above: Performed By: #### U ACSIND #### [facility] [address] [address] [address] Homero Damon LEUKOCYTES Negative Normal NEGATIVE [facility] Comment on above: Performed By: #### U ACSIND #### [facility] [address] [address] [address] Homero Damon Nitrite Ql (U) Negative Normal NEGATIVE [facility] Comment on above: Performed By: #### U ACSIND #### [facility] [address] [address] [address] Homero Damon pH (U) 6.0 [pH] Normal 5-9 [facility] Comment on above: Performed By: #### U ACSIND #### [facility] [address] [place] [address] Dr. Homero Damon SPEC GRAVITY 1.025 Normal 1.005-<=1.025 [facility] Comment on above: Performed By: #### U ACSIND #### [facility] [address] [place] [address] Dr. Homero Damon UA PROTEIN Negative Normal NEGATIVE/ TRACE [facility] Comment on above: Performed By: #### U ACSIND #### [facility] [address] [address] [address] Homero Damon UR MICRO IND NOT INDICATED Normal [facility] Comment on above: Performed By: #### U ACSIND #### [facility] [address] [place] [address] Dr. Homero Damon Urobilinogen Qn (U) 1.0 {Saad'U}/dL Normal 0.2 - 1. 0 [facility] Comment on above: Performed By: #### U ACSIND #### [facility] [address] [place] [address] Dr. Homero Damon GROUP B STREP CULTUREon 02-11 S. agalactiae Ag Ql (Unsp spec) Culture Observations: Called Group B Strep to Millie Armando, Shipwright Helper on 02/25 @ 0917 Isolate 1 Streptococcus agalactiae Moderate growth of ORGANISM 1 Streptococcus agalactiae ANTIBIOTIC M.I.C RX STATUS Benzylpenicillin <=0.06 S F Ampicillin <=0.25 S F Cefotaxime <=0.12 S F Ceftriaxone <=0.12 S F Levofloxacin 0.5 S F Erythromycin >=8 R F Clindamycin >=1 R F Linezolid <=2 S F Vancomycin 0.5 S F Tetracycline >=16 R F Normal [facility] Comment on above: Performed By: #### T HCCONF #### [facility] [address] [place] [address] Dr. Homero Damon CULTURE URINEon 02-23-2022 CULTURE [...] Trimethoprim/Sulfame thoxazole <=20 S F Normal [facility] Comment on above: Performed By: #### U RCX #### [facility] [address] [place] [address] Dr. Homero Damon UA RANDOM W/MICROSCOPICon BACTERIA LARGE Abnormal NONE SEEN [facility] Comment on above: Performed By: #### U AMIC #### [facility] [address] [place] [address] Dr. Homero Damon Bilirubin Ql (U) Negative Normal NEGATIVE [facility] Comment on above: Performed By: #### U AMIC #### [facility] [address] [place] [address] Dr. Homero Damon CAST NONE SEEN Normal NONE SEEN [facility] Comment on above: Performed By: #### U AMIC #### [facility] [address] [place] [address] Dr. Homero Damon Clarity (U) CLEAR Normal CLEAR [facility] Comment on above: Performed By: #### U AMIC #### [facility] [address] [place] [address] Dr. Homero Damon Color (U) LT. YELLOW Normal YELLOW [facility] Comment on above: Performed By: #### U AMIC #### [facility] [address] [address] [address] Homero Damon Crystals LM Nom (Urine sed) NONE SEEN Normal NONE SEEN [facility] Comment on above: Performed By: #### U AMIC #### [facility] [address] [address] [address] Homero Damon Epithelial cells LM Ql (Urine sed) FEW Abnormal NONE SEEN /RARE [facility] Comment on above: Performed By: #### U AMIC #### [facility] [address] [place] [address] Dr. Homero Damon Glucose Ql (U) Negative Normal NEGATIVE [facility] Comment on above: Performed By: #### U AMIC #### [facility] [address] [place] [address] Dr. Homero Damon Hemoglobin Ql (U) Negative Normal NEGATIVE [facility] Comment on above: Performed By: #### U AMIC #### [facility] [address] [place] [address] Dr. Homero Damon Ketones Ql (U) TRACE Abnormal NEGATIVE [facility] Comment on above: Performed By: #### U AMIC #### [facility] [address] [place] [address] Dr. Homero Damon LEUKOCYTES TRACE Abnormal NEGATIVE [facility] Comment on above: Performed By: #### U AMIC #### [facility] [address] [place] [address] Dr. Homero Damon MUCOUS NONE SEEN Normal NONE SEEN [facility] Comment on above: Performed By: #### U AMIC #### [facility] [address] [place] [address] Dr. Homero Damon Nitrite Ql (U) Negative Normal NEGATIVE [facility] Comment on above: Performed By: #### U AMIC #### [facility] [address] [address] [address] Homero Damon pH (U) 6.0 [pH] Normal 5-9 [facility] Comment on above: Performed By: #### U AMIC #### [facility] [address] [address] [address] Homero Damon RBC NONE SEEN Abnormal 0-2 [facility] Comment on above: Performed By: #### U AMIC #### [facility] [address] [place] [address] Dr. Homero Damon SPEC GRAVITY 1.025 Normal 1.005-<=1.025 [facility] Comment on above: Performed By: #### U AMIC #### [facility] [address] [place] [address] Dr. Homero Damon UA PROTEIN Negative Normal NEGATIVE/ TRACE [facility] Comment on above: Performed By: #### U AMIC #### [facility] [address] [place] [address] Dr. Homero Damon Urobilinogen Qn (U) 0.2 {Saad'U}/dL Normal 0.2 - 1. 0 [facility] Comment on above: Performed By: #### U AMIC #### [facility] [address] [place] [address] Dr. Homero Damon WBC 5-10 Abnormal NONE SEEN [facility] Comment on above: Performed By: #### U AMIC #### [facility] [address] [place] [address] Dr. Homero Damon GLUCOSE - 1HRon 12-12-2021 Glucose [Mass/Vol] 128 mg/dL Critically high 74-[address] [facility] Comment on above: Performed By: #### G LU1HR #### [facility] [address] [place] [address] Dr. Homero Damon HEMOGRAM AND PLATELon 2021 Hematocrit (Bld) [Volume fraction] 38.8 % Normal 36.0-48.0 [facility] Comment on above: Performed By: #### H H #### [facility] [address] [place] [address] Dr. Homero Damon Hemoglobin (Bld) [Mass/Vol] 12.3 g/dL Normal 12.0-16.0 [facility] Comment on above: Performed By: #### H H #### [facility] [address] [place] [address] Dr. Homero Damon MCH (RBC) [Entitic mass] 25.8 pg Critically low 26.7-34.0 [facility] Comment on above: Performed By: #### H H #### [facility] [address] [place] [address] Dr. Homero Damon MCHC (RBC) [Mass/Vol] 31.7 g/dL Normal 29.9-35.2 [facility] Comment on above: Performed By: #### H H #### [facility] [address] [place] [address] Dr. Homero Damon MCV (RBC) [Entitic vol] 81.3 fL Normal 81.0-99.0 [facility] Comment on above: Performed By: #### H H #### [facility] [address] [place] [address] Dr. Homero Damon PLT 304 103/ul Normal 150-450 [facility] Comment on above: Performed By: #### H H #### [facility] [address] [place] [address] Dr. Homero Damon RBC 4.77 106/ul Normal 4.20-5.40 [facility] Comment on above: Performed By: #### H H #### [facility] [address] [place] [address] Dr. Homero Damon WBC 9.9 103/ul Normal 4.0-11.0 [facility] Comment on above: Performed By: #### H H #### [facility] [address] [place] [address] Dr. Homero Damon CULTURE URINEon 12-06-2021 CULTURE [...] Trimethoprim/Sulfame thoxazole <=20 S F Normal [facility] Comment on above: Performed By: #### T HCCONF #### [facility] [address] [place] [address] Dr. Homero Damon Vital Signs Date Time Vital Sign Value Performing Clinician Faci lity 09-03-2023 10:39-0500 Body height 160 cm Marielena Hernandez MD Work Phone: [facility] 09-03-2023 10:39-0500 Body mass index (BMI) [Ratio] 41.45 kg/m2 Marielena Hernandez MD Work Phone: [facility] 09-03-2023 10:39-0500 Body weight 106.14 kg Marielena Hernandez MD Work Phone: [facility] 09-03-2023 10:39-0500 Diastolic blood pressure 88 mm[Hg] Marielena Hernandez MD Work Phone: [facility] 09-03-2023 10:39-0500 Heart rate 98 /min Marielena Hernandez MD Work Phone: [facility] 09-03-2023 10:39-0500 Systolic blood pressure 123 mm[Hg] Marielena Hernandez MD Work Phone: [facility] 08-21-2023 10:31-0500 Body mass index (BMI) [Ratio] 43.48 kg/m2 Trisha CASTELLANOS Work Phone: [facility] 08-21-2023 10:31-0500 Body weight 104.38 kg Trisha CASTELLANOS Work Phone: [facility] 08-21-2023 10:31-0500 Diastolic blood pressure 60 mm[Hg] Trisha CASTELLANOS Work Phone: [facility] 08-21-2023 10:31-0500 Systolic blood pressure 118 mm[Hg] Trisha CASTELLANOS Work Phone: [facility] Encounters Encounter Date Encounter Type Care Provider Facility Start: 11-13-2023 End: 11-13-2023 ambulatory TRISHA SLATER Not Available Start: 10-30-2023 End: 10-30-2023 ambulatory LEA DANO Not Available Start: 10-15-2023 End: 10-15-2023 ambulatory TRISHA BRYON Not Available Start: 09-17-2023 End: 09-17-2023 ambulatory LEA DANO Not Available Start: 09-03-2023 End: 09-03-[facility] Start: 09-03-2023 End: 09-03-2023 Office outpatient visit 10 minutes Marielena Hernandez MD Work Phone: [facility] Comment on above: 22 weeks gestation o f (Primary Dx); Severe obesity with alveolar hypoventilation affecting , antepartum ([facility]) Start: 08-21-2023 End: 08-21-2023 ambulatory TRISHA SLATER Not Available Start: 08-21-2023 End: 08-21-2023 Office outpatient visit 15 minutes Trisha CASTELLANOS Work Phone: [facility] Comment on above: Second trimester pre gnancy; Diabetes mellitus screening Start: 08-20-2023 Chart abstracting Marielena Hernandez MD Work Phone: [facility] Start: 07-23-2023 End: 07-23-2023 ambulatory LEA DANO [...] Td Vaccines (8 - Td or Tdap) [facility] [email or web address] [facility] Start: 09-17-2023 End: 09-17-2023 Patient encounter procedure 09/17/2023 10:50 AM EST Routine [facility] [address] [place] [address] [place] [address] Lea Cole, DO [address] [place] [address] [place] [address] [facility] Start: 09-03-2023 End: 09-03-2023 Patient encounter procedure [facility] Start: 08-21-2023 End: 08-21-2024 CBC panel - Blood by Automated count CBC Lab Routine Diabetes mellitus screening Expected: 08/21/2023 (Approximate), Expires: 08/21/2024 [facility] Work Phone: Comment on above: Expected: 08/21/2023 (Approximate), Expires: 08/21/2024 Start: 08-21-2023 End: 08-21-2024 Measurement of glucose 1 hour after glucose challenge for glucose tolerance test Glucose tolerance, 1 hour Lab Routine Diabetes mellitus screening Expected: 08/21/2023 (Approximate), Expires: 08/21/2024 [facility] Comment on above: Expected: 08/21/2023 (Approximate), Expires: 08/21/2024 Start: 03-14-2023 Influenza vaccination Influenza Vacc ine [facility] Start: 2021 Screening for malign ant neoplasm of cervix Pap Smear [facility] Start: 2019 DTaP,Tdap and Td Vaccines (1 - Tdap) DTaP,Tdap and Td Vaccines (1 - Tdap) [facility] Start: 2018 Adult BMI Follow Up Plan Adult BMI Follow Up Plan [facility] Start: 2018 Adult BMI Screening Adult BMI Screen ing [facility] Start: 2012 Depression Screening Depression Scre ening [facility] Start: 2012 Tobacco Screening Tobacco Screening [facility] Immunizations Immunization Date Immunization Notes Care Provider Dioni noe 06-03-2013 influenza virus vaccine, unspecified formulation Marielena Hernandez MD Work Phone: [facility] Payers Date Payer Category Payer Medicaid [id number] 2022 Medicaid [id number] 2022 Medicaid [id number] 2000 Unknown [id number] 2.16.84 [id number] 2000 Unknown [id number] 2.16.84 [id number] 2000 Unknown [id number] 2.16.84 0.1.979187.3.579.2.593 2000 Unknown [id number] 2.16.84 0.1.990570.3.579.2.593 2000 Unknown [id number] 2.16.84 0.1.730838.3.579.2.593 2000 Unknown [id number] 2.16.84 0.1.401199.3.579.2.593 2000 Unknown [id number] 2.16.84 0.1.376984.3.579.2.593 2000 Unknown [id number] 2.16.8 40.1.463473.3.579.2.1286 2000 Unknown [id number] 2.16.8 40.1.405323.3.579.2.1286 2000 Unknown [id number] 2.16.84 0.1.380642.3.579.2.1259 2000 Unknown [id number] 2.16.84 0.1.587144.3.579.2.1259 2000 Unknown [id number] 2.16.84 0.1.960920.3.579.2.1259 2000 Unknown [id number] 2.16.84 0.1.579538.3.579.2.1259 2000 Unknown [id number] 2.16.84 0.1.334390.3.579.2.1259 2000 Unknown [id number] 2.16.84 0.1.551530.3.579.2.1259 2000 Unknown [id number] 2.16.840 .1.129958.3.579.2.1259 1959 Unknown [id number] Social History Date Type Detail Facility Start: 04-08-2017 End: 09-03-2023 Tobacco smoking status NHIS Never smoked tobacco [facility] Start: 04-08-2017 End: 09-03-2023 Tobacco use and exposure Smokeless tobacco non-user [facility] Start: 08-20-2023 End: 09-03-2023 Alcohol intake Current non-drinker of alcohol (finding) [facility] Start: 08-24-2020 End: 08-20-2023 History of Social function [facility] Start: 08-24-2020 End: 08-20-2023 Tobacco use panel [facility] Childcare Unknown [facility] Start: 04-14-2023 [facility] Start: 2000 Sex Assigned At Not on file P [facility] Start: 06-13-2023 Gender identity Identifies as [...] Yes Have you been seen here at [facility] in a previous ? No Recent ER visits or hospitalizations? No Bring blood sugar log or meter with you today? (Please bring them with you for every visit at [facility]) N/A Traveled outside the country in the [...] TESTS AND ULTRASOUND REPORTS: Referral records and [facility] chart were reviewed Pertinent Ultrasound findings are [...] patient is in complete care of her primer expeditor and drier. Patient does have ultrasound and office visit [...] patient/family/caregiver Referring and communicating with other health care consultant (not separately reported) Documenting clinical information in the electronic or other health record Marielena Hernandez MD Maternal- [facility] [address] [facility] [address] [place] [address] [facility], the CDC, and other organizations representing maternal and public health professionals recommend that , , and lactating people and those considering receive the COVID-19 vaccination. Vaccination is the best method to reduce maternal and complications of SARS-CoV-2 infection. This document was created with [employer] technology. Though I make every effort to review the dictation as it is transcribed, on occasion the spoken word can be misinterpreted by the technology leading to inappropriate words, phrases, or sentences. This note is addressed to the requesting provider as a consultation for clinical guidance. Specific medical abbreviations are occasionally used and those are generally approved by the [place]?Board of?Obstetrics and?Gynecology?as well as?Terrance grimm abbreviations. The above plan of care was based solely on the diagnoses for which a consultation was requested. ?More frequent testing may be indicated based on her other medical/obstetrical conditions. The management of other or medical conditions is beyond the scope of requested consultation and will continue to be followed by the primary primer expeditor and drier or primary care provider. Note to patient: [...] of the practitioner. documented in this encounter [facility] History of Present illness Narrative 08-21-2023 [...] obesity with alveolar hypoventilation affecting , antepartum ([facility]) documented in this encounter [facility] [...] DATE CREATED AUTHOR AUTHOR'S ORGANIZ ATION 11/14/2023 [facility] EPIC Reason for Visit [...] BE BASED ON THE PRIMARY CLINICAL RECORDS. [facility]. provides no warranty or guarantee of the accuracy or completeness of information in this document.
== END 2023-11-20 08:33 | disposition home or self-care (01) ==
LOC: NOMS 08:33
PROVIDERS: PCP Nurse Practitioner Primary Care; Visit Provider Physician Assistant
DX: Z13.1 Encounter for screening for diabetes mellitus (principal); O36.63X0 Maternal care for excessive fetal growth, third trimester, not applicable or unspecified; Z3A.32 32 weeks gestation of pregnancy
CPT/HCPCS: 76816

== ENCOUNTER 2023-11-22 07:14 | Outpatient (OUT) | payer MEDICAID, SELFPAY ==
--- OUTSIDE RECORDS SUMMARY | 2023-11-22 07:17 | XMS_ITS | CCD ---
Author Organization [facility] [place] Care Team Providers Care Office Correspondent Name Role Phone PAULO ., DR GRIGGS [...] HERNANDEZ Attending Unavailable LEA COLE Attending Unavailable TIRSHA SLATER Attending Unavailable LEA COLE Attending Unavailable [...] Negative Negative - 4(70) +++ mg/dL [facility] Blood, UA Negative Negative - 50 Francis/mcL [facility] Clarity, UA Clear [facility] Color, UA Yellow [facility] Glucose, UA Negative Negative - 1999(110) ++++ mg/dL [facility] Interpretation and review of laboratory results Abnormal [facility] Ketones, UA Negative Negative - 160(16) ++++ mg/dL [facility] Leukocytes, UA Negative Negative - 500+++ Shravan/mcL [facility] Nitrite, UA Negative Negative - Positive [facility] pH, UA 6.0 5 - 9 [facility] Protein, UA Trace Negative - 1999(20) ++++ mg/dL [facility] Spec Grav, UA 1.030 1 - 1.03 [facility] Urobilinogen, UA 0.2 0.2 - 12 mg/dL Formerly [facility], 1928–1983 AFP Single Marker Scrn, Mate rnal, Serumon 07-26-2023 Ms Alpha-Fetoprotein Negative [facility] Free Cell DNAon 2022 Free Cell Dna LOW RISK [facility] CBC without diffon Hematocrit (Bld) [Volume fraction] 38.7 % [facility] Hemoglobin (Bld) [Mass/Vol] 12.0 g/dL [facility] Platelets (Bld) [#/Vol] 365 10*3/uL [facility] HIV 1&2 AB/AG Screen (P24 AG )on 06-20-2023 HIV 1&2 AB/AG Non-Reactive [facility] Hepatitis B surface antigeno n 06-20-2023 Hepatitis B Surface Antigen Negative [facility] Hepatitis C(HCV) Ab w/ Refle x to PCRon 06-20-2023 HCV Ab Ql (S) Non-Reactive [facility] No Panel InformationOrdered By: Nicky Miles on 06-20-2023 [facility] Rubella IGG immune statuson 06-20-2023 Rubella immune IgG 2.23 IMMUNE [facility] Syphilis Total(Unknown Syphi lis Status)Ordered By: Nicky Miles on 06-20-2023 Syphilis Non-Reactive [facility] TSHon 06-20-2023 Thyroid Stimulating (3Rd Generation) Hormone/ Tsh 0.708 [facility] PAP ACOG PANEL 2: 21 to on 11-20-2022 . . Normal [facility] Comment on above: Performed By: #### [id number] #### [facility] [address] [address] [address] Homero Damon Age Gdln ACOG Testing - Normal [facility] Comment on above: Performed By: #### [id number] #### [facility] [address] [address] [address] Homero Damon DIAGNOSIS: Comment Normal [facility] Comment on above: Result Comment: NEGA TIVE FOR INTRAEPITHELIAL LESION OR MALIGNANCY. Performed By: #### [id number] #### [facility] [address] [place] [address] Dr. Homero Damon Methodology: Comment Normal [facility] Comment on above: Result Comment: This liquid based ThinPrep(R) pap test was screened with the use of an image guided system. Performed By: #### [id number] #### [facility] [address] [place] [address] Dr. Homero Damon Note: Comment Normal [facility] Comment on above: Result Comment: The Pap smear is a screening test designed to aid in the detection of premalignant and malignant conditions of the uterine cervix. It is not a diagnostic procedure and should not be used as the sole means of detecting cervical cancer. Both false-positive and false-negative reports do occur. . Performed By: #### [id number] #### [facility] [address] [place] [address] Dr. Homero Damon Performed by: Comment Normal [facility] Comment on above: Result Comment: Haris Alexis, Ip Architect (ASCP) Performed By: #### [id number] #### [facility] [address] [place] [address] Dr. Homero Damon Reflex Criteria: Comment Normal [facility] Comment on above: Result Comment: The HPV DNA reflex criteria were not met with this specimen result therefore, no HPV testing was performed. . Performed By: #### [id number] #### [facility] [address] [place] [address] Dr. Homero Damon Specimen adequacy: Comment Normal [facility] Comment on above: Result Comment: Sati sfactory for evaluation. Endocervical and/or squamous metaplastic cells (endocervical component) are present. Performed By: #### [id number] #### [facility] [address] [place] [address] Dr. Homero Damon CANNABINOID (THC) CONFIRMATI ON, URINEon 03-19-2022 Cannabinoid Positive Abnormal [facility] Comment on above: Performed By: #### T HCCON #### [facility] [address] [place] [address] Dr. Homero Damon Carboxy THC GC/MS Conf 47 ng/mL Normal Cutoff=10 Th e [facility] Comment on above: Performed By: #### T HCCONF #### [facility] [address] [place] [address] Dr. Homero Damon CBC AUTO DIFFon 03-15-2022 BASO # 0.0 103/ul Normal 0.0-0.1 [facility] Comment on above: Performed By: #### C BC #### [facility] [address] [place] [address] Dr. Homero Damon Basophils/100 WBC (Bld) 0.2 % Normal 0.2-2.0 [facility] Comment on above: Performed By: #### C BC #### [facility] [address] [place] [address] Dr. Homero Damon EO # 0.2 103/ul Normal 0.0-0.7 [facility] Comment on above: Performed By: #### C BC #### [facility] [address] [place] [address] Dr. Homero Damon Eosinophils/100 WBC (Bld) 1.5 % Normal 0.9-7.0 [facility] Comment on above: Performed By: #### C BC #### [facility] [address] [place] [address] Dr. Homero Damon Erythrocyte distribution width (RBC) [Ratio] 16.1 % Critically high 11.0-15.0 [facility] Comment on above: Performed By: #### C BC #### [facility] [address] [place] [address] Dr. Homero Damon Hematocrit (Bld) [Volume fraction] 32.7 % Critically low 36.0-48.0 [facility] Comment on above: Performed By: #### C BC #### [facility] [address] [place] [address] Dr. Homero Damon Hemoglobin (Bld) [Mass/Vol] 9.7 g/dL Critically low 12.0-16.0 [facility] Comment on above: Performed By: #### C BC #### [facility] [address] [place] [address] Dr. Homero Damon IG # 0.04 10e3/ul Critically high 0.00-0.03 [facility] Comment on above: Performed By: #### C BC #### [facility] [address] [place] [address] Dr. Homero Damon IG % 0.4 % Normal 0.0-0.5 [facility] Comment on above: Performed By: #### C BC #### [facility] [address] [place] [address] Dr. Homero Damon LYMPH # 3.5 103/ul Normal 1.2-3.8 [facility] Comment on above: Performed By: #### C BC #### [facility] [address] [place] [address] Dr. Homero Damon Lymphocytes/100 WBC (Bld) 32.9 % Normal 20.5-60.0 [facility] Comment on above: Performed By: #### C BC #### [facility] [address] [place] [address] Dr. Homero Damon MANUAL DIFF REQ NO Normal [facility] Comment on above: Performed By: #### C BC #### [facility] [address] [place] [address] Dr. Homero Damon MCH (RBC) [Entitic mass] 23.0 pg Critically low 26.7-34.0 [facility] Comment on above: Performed By: #### C BC #### [facility] [address] [place] [address] Dr. Homero Damon MCHC (RBC) [Mass/Vol] 29.7 g/dL Critically low 29.9-35.2 [facility] Comment on above: Performed By: #### C BC #### [facility] [address] [place] [address] Dr. Homero Damon MCV (RBC) [Entitic vol] 77.7 fL Critically low 81.0-99.0 [facility] Comment on above: Performed By: #### C BC #### [facility] [address] [place] [address] Dr. Homero Damon MONO # 0.8 103/ul Normal 0.3-0.8 [facility] Comment on above: Performed By: #### C BC #### [facility] [address] [place] [address] Dr. Homero Damon Monocytes/100 WBC (Bld) 7.1 % Normal 1.7-12.0 [facility] Comment on above: Performed By: #### C BC #### [facility] [address] [place] [address] Dr. Homero Damon NEUT # 6.1 103/ul Normal 1.4-6.5 [facility] Comment on above: Performed By: #### C BC #### [facility] [address] [place] [address] Dr. Homero Damon Neutrophils/100 WBC (Bld) 57.9 % Normal 43.0-75.0 [facility] Comment on above: Performed By: #### C BC #### [facility] [address] [place] [address] Dr. Homero Damon Platelet mean volume (Bld) [Entitic vol] 11.0 fL Normal 9.5-13.5 [facility] Comment on above: Performed By: #### C BC #### [facility] [address] [place] [address] Dr. Homero Damon PLT 253 103/ul Normal 150-450 [facility] Comment on above: Performed By: #### C BC #### [facility] [address] [place] [address] Dr. Homero Damon RBC 4.21 106/ul Normal 4.20-5.40 [facility] Comment on above: Performed By: #### C BC #### [facility] [address] [place] [address] Dr. Homero Damon WBC 10.6 103/ul Normal 4.0-11.0 [facility] Comment on above: Performed By: #### C BC #### [facility] [address] [place] [address] Dr. Homero Damon CBC AUTO DIFFon 03-13-2022 BASO # 0.0 103/ul Normal 0.0-0.1 [facility] Comment on above: Performed By: #### T HCCONF #### [facility] [address] [place] [address] Dr. Homero Damon Basophils/100 WBC (Bld) 0.3 % Normal 0.2-2.0 [facility] Comment on above: Performed By: #### T HCCONF #### [facility] [address] [place] [address] Dr. Homero Damon EO # 0.0 103/ul Normal 0.0-0.7 [facility] Comment on above: Performed By: #### T HCCONF #### [facility] [address] [place] [address] Dr. Homero Damon Eosinophils/100 WBC (Bld) 0.2 % Critically low 0.9-7.0 [facility] Comment on above: Performed By: #### T HCCONF #### [facility] [address] [place] [address] Dr. Homero Damon Erythrocyte distribution width (RBC) [Ratio] 16.0 % Critically high 11.0-15.0 [facility] Comment on above: Performed By: #### T HCCONF #### [facility] [address] [place] [address] Dr. Homero Damon Hematocrit (Bld) [Volume fraction] 35.3 % Critically low 36.0-48.0 [facility] Comment on above: Performed By: #### T HCCONF #### [facility] [address] [place] [address] Dr. Homero Damon Hemoglobin (Bld) [Mass/Vol] 11.0 g/dL Critically low 12.0-16.0 [facility] Comment on above: Performed By: #### T HCCONF #### [facility] [address] [place] [address] Dr. Homero Damon IG # 0.04 10e3/ul Critically high 0.00-0.03 [facility] Comment on above: Performed By: #### T HCCONF #### [facility] [address] [address] [address] Homero Damon IG % 0.4 % Normal 0.0-0.5 [facility] Comment on above: Performed By: #### T HCCONF #### [facility] [address] [address] [address] Homero Damon LYMPH # 2.5 103/ul Normal 1.2-3.8 [facility] Comment on above: Performed By: #### T HCCONF #### [facility] [address] [address] [address] Homero Damon Lymphocytes/100 WBC (Bld) 26.4 % Normal 20.5-60.0 [facility] Comment on above: Performed By: #### T HCCONF #### [facility] [address] [place] [address] Dr. Homero Damon MANUAL DIFF REQ NO Normal [facility] Comment on above: Performed By: #### T HCCONF #### [facility] [address] [address] [address] Homero Damon MCH (RBC) [Entitic mass] 23.5 pg Critically low 26.7-34.0 [facility] Comment on above: Performed By: #### T HCCONF #### [facility] [address] [place] [address] Dr. Homero Damon MCHC (RBC) [Mass/Vol] 31.2 g/dL Normal 29.9-35.2 [facility] Comment on above: Performed By: #### T HCCONF #### [facility] [address] [address] [address] Homero Damon MCV (RBC) [Entitic vol] 75.4 fL Critically low 81.0-99.0 [facility] Comment on above: Performed By: #### T HCCONF #### [facility] [address] [place] [address] Dr. Homero Damon MONO # 0.6 103/ul Normal 0.3-0.8 [facility] Comment on above: Performed By: #### T HCCONF #### [facility] [address] [place] [address] Dr. Homero aDmon Monocytes/100 WBC (Bld) 6.4 % Normal 1.7-12.0 [facility] Comment on above: Performed By: #### T HCCONF #### [facility] [address] [place] [address] Dr. Homero Damon NEUT # 6.4 103/ul Normal 1.4-6.5 [facility] Comment on above: Performed By: #### T HCCONF #### [facility] [address] [place] [address] Dr. Homero Damon Neutrophils/100 WBC (Bld) 66.3 % Normal 43.0-75.0 [facility] Comment on above: Performed By: #### T HCCONF #### [facility] [address] [place] [address] Dr. Homero Damon Platelet mean volume (Bld) [Entitic vol] 11.0 fL Normal 9.5-13.5 [facility] Comment on above: Performed By: #### T HCCONF #### [facility] [address] [place] [address] Dr. Homero Damon PLT 312 103/ul Normal 150-450 [facility] Comment on above: Performed By: #### T HCCONF #### [facility] [address] [place] [address] Dr. Homero Damon RBC 4.68 106/ul Normal 4.20-5.40 [facility] Comment on above: Performed By: #### T HCCONF #### [facility] [address] [place] [address] Dr. Homero Damon WBC 9.6 103/ul Normal 4.0-11.0 [facility] Comment on above: Performed By: #### T HCCONF #### [facility] [address] [place] [address] Dr. Homero Dam[facility] SARS-CoV-2 (COVID-19) RNA LORRAINE+probe Ql (Unsp spec) Not detected Normal NOT DETECTED [facility] Comment on above: Result Comment: [...] for this test is supported by the Vascular Technologist Sonographer of Health and Human Service's declaration that [...] used). Performed By: #### C VDTBH #### [facility] [address] [place] [address] Dr. Homero Damon DRUG SCREEN RAPID (URINE)on 03-13-2022 AMP Negative Normal NEGATIVE [facility] Comment on above: Performed By: #### D RUGRPD #### [facility] [address] [place] [address] Dr. Homero Damon BAR Negative Normal NEGATIVE [facility] Comment on above: Performed By: #### D RUGRPD #### [facility] [address] [place] [address] Dr. Homero Damon BUP Negative Normal NEGATIVE [facility] Comment on above: Performed By: #### D RUGRPD #### [facility] [address] [place] [address] Dr. Homero Damon BZO Negative Normal NEGATIVE [facility] Comment on above: Performed By: #### D RUGRPD #### [facility] [address] [place] [address] Dr. Homero Damon MADHURI Negative Normal NEGATIVE [facility] Comment on above: Performed By: #### D RUGRPD #### [facility] [address] [place] [address] Dr. Homero Damon CUT-OFFS SEE BELOW Normal [facility] Comment on above: Result Comment: AMP [...] ng/mL Performed By: #### D RUGRPD #### [facility] [address] [place] [address] Dr. Homero Damon DRUG CUT HEADER DRUG CLASS TEST SYSTEM CUT-OFF CONCENTRATIONS ARE FOLLOWS: Normal [facility] Comment on above: Performed By: #### D RUGRPD #### [facility] [address] [place] [address] Dr. Homero Damon mAMP Negative Normal NEGATIVE [facility] Comment on above: Performed By: #### D RUGRPD #### [facility] [address] [place] [address] Dr. Homero Damon MTD Negative Normal NEGATIVE [facility] Comment on above: Performed By: #### D RUGRPD #### [facility] [address] [place] [address] Dr. Homero Damon OPI Negative Normal NEGATIVE [facility] Comment on above: Performed By: #### D RUGRPD #### [facility] [address] [place] [address] Dr. Homero Damon OXY Negative Normal NEGATIVE [facility] Comment on above: Performed By: #### D RUGRPD #### [facility] [address] [place] [address] Dr. Homero Damon PCP Negative Normal NEGATIVE [facility] Comment on above: Performed By: #### D RUGRPD #### [facility] [address] [place] [address] Dr. Homero Damon PPX Negative Normal NEGATIVE [facility] Comment on above: Performed By: #### D RUGRPD #### [facility] [address] [place] [address] Dr. Homero Damon TCA Negative Normal NEGATIVE [facility] Comment on above: Performed By: #### D RUGRPD #### [facility] [address] [place] [address] Dr. Homero Damon THC Positive Abnormal NEGATIVE [facility] Comment on above: Performed By: #### D RUGRPD #### [facility] [address] [place] [address] Dr. Homero Damon TYPE AND SCREENon 03-13-2022 TYPE AND SCREEN Negative Normal [facility] Comment on above: Performed By: #### T HCCONF #### [facility] [address] [place] [address] Dr. Homero Damon UA (CLEAN/CATCH) DAIRY SCIENCE TEACHER/MICRO I F IND.on 03-10-2022 Bilirubin Ql (U) Negative Normal NEGATIVE [facility] Comment on above: Performed By: #### U ACSIND #### [facility] [address] [place] [address] Dr. Homero Damon Clarity (U) CLEAR Normal CLEAR [facility] Comment on above: Performed By: #### U ACSIND #### [facility] [address] [place] [address] Dr. Homero Damon Color (U) YELLOW Normal YELLOW [facility] Comment on above: Performed By: #### U ACSIND #### [facility] [address] [place] [address] Dr. Homero Damon Glucose Ql (U) Negative Normal NEGATIVE [facility] Comment on above: Performed By: #### U ACSIND #### [facility] [address] [place] [address] Dr. Homero Damon Hemoglobin Ql (U) Negative Normal NEGATIVE [facility] Comment on above: Performed By: #### U ACSIND #### [facility] [address] [place] [address] Dr. Homero Damon Ketones Ql (U) Negative Normal NEGATIVE [facility] Comment on above: Performed By: #### U ACSIND #### [facility] [address] [address] [address] Homero Damon LEUKOCYTES Negative Normal NEGATIVE [facility] Comment on above: Performed By: #### U ACSIND #### [facility] [address] [address] [address] Homero Damon Nitrite Ql (U) Negative Normal NEGATIVE [facility] Comment on above: Performed By: #### U ACSIND #### [facility] [address] [address] [address] Homero Damon pH (U) 6.0 [pH] Normal 5-9 [facility] Comment on above: Performed By: #### U ACSIND #### [facility] [address] [place] [address] Dr. Homero Damon SPEC GRAVITY 1.025 Normal 1.005-<=1.025 [facility] Comment on above: Performed By: #### U ACSIND #### [facility] [address] [place] [address] Dr. Homero Damon UA PROTEIN Negative Normal NEGATIVE/ TRACE [facility] Comment on above: Performed By: #### U ACSIND #### [facility] [address] [address] [address] Homero Damon UR MICRO IND NOT INDICATED Normal [facility] Comment on above: Performed By: #### U ACSIND #### [facility] [address] [place] [address] Dr. Homero Daomn Urobilinogen Qn (U) 1.0 {Saad'U}/dL Normal 0.2 - 1. 0 [facility] Comment on above: Performed By: #### U ACSIND #### [facility] [address] [place] [address] Dr. Homero Damon GROUP B STREP CULTUREon 02-11 S. agalactiae Ag Ql (Unsp spec) Culture Observations: Called Group B Strep to Millie Armando, Trade Union Secretary on 02/25 @ 0917 Isolate 1 Streptococcus agalactiae Moderate growth of ORGANISM 1 Streptococcus agalactiae ANTIBIOTIC M.I.C RX STATUS Benzylpenicillin <=0.06 S F Ampicillin <=0.25 S F Cefotaxime <=0.12 S F Ceftriaxone <=0.12 S F Levofloxacin 0.5 S F Erythromycin >=8 R F Clindamycin >=1 R F Linezolid <=2 S F Vancomycin 0.5 S F Tetracycline >=16 R F Normal [facility] Comment on above: Performed By: #### T HCCONF #### [facility] [address] [place] [address] Dr. Homero Damon CULTURE URINEon 02-23-2022 CULTURE [...] Trimethoprim/Sulfame thoxazole <=20 S F Normal [facility] Comment on above: Performed By: #### U RCX #### [facility] [address] [place] [address] Dr. Homero Damon UA RANDOM W/MICROSCOPICon BACTERIA LARGE Abnormal NONE SEEN [facility] Comment on above: Performed By: #### U AMIC #### [facility] [address] [place] [address] Dr. Homero Damon Bilirubin Ql (U) Negative Normal NEGATIVE [facility] Comment on above: Performed By: #### U AMIC #### [facility] [address] [place] [address] Dr. Homero Damon CAST NONE SEEN Normal NONE SEEN [facility] Comment on above: Performed By: #### U AMIC #### [facility] [address] [place] [address] Dr. Homero Damon Clarity (U) CLEAR Normal CLEAR [facility] Comment on above: Performed By: #### U AMIC #### [facility] [address] [place] [id number] Dr. Homero Damon Color (U) LT. YELLOW Normal YELLOW [facility] Comment on above: Performed By: #### U AMIC #### [facility] [address] [address] [address] Homero Damon Crystals LM Nom (Urine sed) NONE SEEN Normal NONE SEEN [facility] Comment on above: Performed By: #### U AMIC #### [facility] [address] [address] [address] Homero Damon Epithelial cells LM Ql (Urine sed) FEW Abnormal NONE SEEN /RARE [facility] Comment on above: Performed By: #### U AMIC #### [facility] [address] [place] [address] Dr. Homero Damon Glucose Ql (U) Negative Normal NEGATIVE [facility] Comment on above: Performed By: #### U AMIC #### [facility] [address] [place] [address] Dr. Homero Damon Hemoglobin Ql (U) Negative Normal NEGATIVE [facility] Comment on above: Performed By: #### U AMIC #### [facility] [address] [place] [address] Dr. Homero Damon Ketones Ql (U) TRACE Abnormal NEGATIVE [facility] Comment on above: Performed By: #### U AMIC #### [facility] [address] [place] [address] Dr. Homero Damon LEUKOCYTES TRACE Abnormal NEGATIVE [facility] Comment on above: Performed By: #### U AMIC #### [facility] [address] [place] [address] Dr. Homero Damon MUCOUS NONE SEEN Normal NONE SEEN [facility] Comment on above: Performed By: #### U AMIC #### [facility] [address] [place] [address] Dr. Homero Damon Nitrite Ql (U) Negative Normal NEGATIVE [facility] Comment on above: Performed By: #### U AMIC #### [facility] [address] [address] [address] Homero Damon pH (U) 6.0 [pH] Normal 5-9 [facility] Comment on above: Performed By: #### U AMIC #### [facility] [address] [address] [address] Homero Damon RBC NONE SEEN Abnormal 0-2 [facility] Comment on above: Performed By: #### U AMIC #### [facility] [address] [place] [address] Dr. Homero Damon SPEC GRAVITY 1.025 Normal 1.005-<=1.025 [facility] Comment on above: Performed By: #### U AMIC #### [facility] [address] [place] [address] Dr. Homero Damon UA PROTEIN Negative Normal NEGATIVE/ TRACE [facility] Comment on above: Performed By: #### U AMIC #### [facility] [address] [place] [address] Dr. Homero Damon Urobilinogen Qn (U) 0.2 {Saad'U}/dL Normal 0.2 - 1. 0 [facility] Comment on above: Performed By: #### U AMIC #### [facility] [address] [place] [address] Dr. Homero Damon WBC 5-10 Abnormal NONE SEEN [facility] Comment on above: Performed By: #### U AMIC #### [facility] [address] [place] [address] Dr. Homero Damon GLUCOSE - 1HRon 12-12-2021 Glucose [Mass/Vol] 128 mg/dL Critically high 74-106 T [facility] Comment on above: Performed By: #### G LU1HR #### [facility] [address] [place] [address] Dr. Homero Damon HEMOGRAM AND PLATELon 2021 Hematocrit (Bld) [Volume fraction] 38.8 % Normal 36.0-48.0 [facility] Comment on above: Performed By: #### H H #### [facility] [address] [place] [address] Dr. Homero Damon Hemoglobin (Bld) [Mass/Vol] 12.3 g/dL Normal 12.0-16.0 [facility] Comment on above: Performed By: #### H H #### [facility] [address] [place] [address] Dr. Homero Damon MCH (RBC) [Entitic mass] 25.8 pg Critically low 26.7-34.0 [facility] Comment on above: Performed By: #### H H #### [facility] [address] [place] [address] Dr. Homero Damon MCHC (RBC) [Mass/Vol] 31.7 g/dL Normal 29.9-35.2 [facility] Comment on above: Performed By: #### H H #### [facility] [address] [place] [address] Dr. Homero Damon MCV (RBC) [Entitic vol] 81.3 fL Normal 81.0-99.0 [facility] Comment on above: Performed By: #### H H #### [facility] [address] [place] [address] Dr. Homero Damon PLT 304 103/ul Normal 150-450 [facility] Comment on above: Performed By: #### H H #### [facility] [address] [place] [address] Dr. Homero Damon RBC 4.77 106/ul Normal 4.20-5.40 [facility] Comment on above: Performed By: #### H H #### [facility] [address] [place] [address] Dr. Homero Damon WBC 9.9 103/ul Normal 4.0-11.0 [facility] Comment on above: Performed By: #### H H #### [facility] [address] [place] [address] Dr. Homero Damon CULTURE URINEon 12-06-2021 CULTURE [...] Trimethoprim/Sulfame thoxazole <=20 S F Normal [facility] Comment on above: Performed By: #### T HCCONF #### [facility] [address] [place] [address] Dr. Homero Damon Vital Signs Date Time Vital Sign Value Performing Clinician Faci lity 09-03-2023 10:39-0500 Body height 160 cm Marielena Hernandez MD Work Phone: [facility] 09-03-2023 10:39-0500 Body mass index (BMI) [Ratio] 41.45 kg/m2 Marielena Hernandez MD Work Phone: [facility] 09-03-2023 10:39-0500 Body weight 106.14 kg Marielena Hernandez MD Work Phone: [facility] 09-03-2023 10:39-0500 Diastolic blood pressure 88 mm[Hg] Marielena Hernandez MD Work Phone: [facility] 09-03-2023 10:39-0500 Heart rate 98 /min Marielena Hernandez MD Work Phone: [facility] 09-03-2023 10:39-0500 Systolic blood pressure 123 mm[Hg] Marielena Hernandez MD Work Phone: [facility] 08-21-2023 10:31-0500 Body mass index (BMI) [Ratio] 43.48 kg/m2 Trisha CASTELLANOS Work Phone: [facility] 08-21-2023 10:31-0500 Body weight 104.38 kg Trisha CASTELLANOS Work Phone: [facility] 08-21-2023 10:31-0500 Diastolic blood pressure 60 mm[Hg] Trisha CASTELLANOS Work Phone: [facility] 08-21-2023 10:31-0500 Systolic blood pressure 118 mm[Hg] Trisha CASTELLANOS Work Phone: [facility] Encounters Encounter Date Encounter Type Care Provider Facility Start: 11-13-2023 End: 11-13-2023 ambulatory TRISHA SLATER Not Available Start: 10-30-2023 End: 10-30-2023 ambulatory LEA DANO Not Available Start: 10-15-2023 End: 10-15-2023 ambulatory TRISHA BRYON Not Available Start: 09-17-2023 End: 09-17-2023 ambulatory LEA DANO Not Available Start: 09-03-2023 End: 09-03-[address] [facility] Start: 09-03-2023 End: 09-03-2023 Office outpatient visit 10 minutes Marielena Hernandez MD Work Phone: [facility]aternal [facility] Telephone Comment on above: 22 weeks gestation o f (Primary Dx); Severe obesity with alveolar hypoventilation affecting , antepartum ([facility] Start: 08-21-2023 End: 08-21-2023 ambulatory TRISHA SLATER Not Available Start: 08-21-2023 End: 08-21-2023 Office outpatient visit 15 minutes Trisha CASTELLANOS Work Phone: [facility] OB Comment on above: Second trimester pre gnancy; Diabetes mellitus screening Start: 08-20-2023 Chart abstracting Marielena Hernandez MD Work Phone: Maternal- Medicine [facility] Start: 07-23-2023 End: 07-23-2023 ambulatory LEA [...] Td Vaccines (8 - Td or Tdap) [facility] Start: 09-17-2023 End: 09-17-2023 Patient encounter procedure 09/17/2023 10:50 AM EST Routine [facility] [address] [place] [address] [place] [address] Lea Cole, DO [address] [place] [address] [place] [address] [facility] Start: 09-03-2023 End: 09-03-2023 Patient encounter procedure [facility] Start: 08-21-2023 End: 08-21-2024 CBC panel - Blood by Automated count CBC Lab Routine Diabetes mellitus screening Expected: 08/21/2023 (Approximate), Expires: 08/21/2024 [facility] Work Phone: Comment on above: Expected: 08/21/2023 (Approximate), Expires: 08/21/2024 Start: 08-21-2023 End: 08-21-2024 Measurement of glucose 1 hour after glucose challenge for glucose tolerance test Glucose tolerance, 1 hour Lab Routine Diabetes mellitus screening Expected: 08/21/2023 (Approximate), Expires: 08/21/2024 [facility] Comment on above: Expected: 08/21/2023 (Approximate), Expires: 08/21/2024 Start: 03-14-2023 Influenza vaccination Influenza Vacc ine [facility] Start: 2021 Screening for malign ant neoplasm of cervix Pap Smear [facility] Start: 2019 DTaP,Tdap and Td Vaccines (1 - Tdap) DTaP,Tdap and Td Vaccines (1 - Tdap) [facility] Start: 2018 Adult BMI Follow Up Plan Adult BMI Follow Up Plan [facility] Start: 2018 Adult BMI Screening Adult BMI Screen ing [facility] Start: 2012 Depression Screening Depression Scre ening [facility] Start: 2012 Tobacco Screening Tobacco Screening [facility] Immunizations Immunization Date Immunization Notes Care Provider Dioni noe 06-03-2013 influenza virus vaccine, unspecified formulation Marielena Hernandez MD Work Phone: [facility] Payers Date Payer Category Payer Medicaid [id number] 2022 Medicaid [id number] 2022 Medicaid [id number] 2000 Unknown [id number] 2.16.84 [id number] 2000 Unknown [id number] 2.16.84 [id number] 2000 Unknown [id number] 2.16.84 0.1.817918.3.579.2.593 2000 Unknown [id number] 2.16.84 0.1.898507.3.579.2.593 2000 Unknown [id number] 2.16.84 0.1.615064.3.579.2.593 2000 Unknown [id number] 2.16.84 0.1.632330.3.579.2.593 2000 Unknown [id number] 2.16.84 0.1.435576.3.579.2.593 2000 Unknown [id number] 2.16.8 40.1.829261.3.579.2.1286 2000 Unknown [id number] 2.16.8 40.1.652529.3.579.2.1286 2000 Unknown [id number] 2.16.84 0.1.424261.3.579.2.1259 2000 Unknown [id number] 2.16.84 0.1.670211.3.579.2.1259 2000 Unknown [id number] 2.16.84 0.1.799246.3.579.2.1259 2000 Unknown [id number] 2.16.84 0.1.326904.3.579.2.1259 2000 Unknown [id number] 2.16.84 0.1.595795.3.579.2.1259 2000 Unknown [id number] 2.16.84 0.1.583449.3.579.2.1259 2000 Unknown [id number] 2.16.840 .[id number] 1959 Unknown [id number] Social History Date Type Detail Facility Start: 04-08-2017 End: 09-03-2023 Tobacco smoking status NHIS Never smoked tobacco [facility] Start: 04-08-2017 End: 09-03-2023 Tobacco use and exposure Smokeless tobacco non-user [facility] Start: 08-20-2023 End: 09-03-2023 Alcohol intake Current non-drinker of alcohol (finding) [facility] Start: 08-24-2020 End: 08-20-2023 History of Social function [facility] Start: 08-24-2020 End: 08-20-2023 Tobacco use panel [facility] Childcare Unknown [facility] Start: 04-14-2023 [facility] Start: 2000 Sex Assigned At Not on file P [facility] Start: 06-13-2023 Gender identity Identifies [...] Yes Have you been seen here at [facility] in a previous ? No Recent ER visits or hospitalizations? No Bring blood sugar log or meter with you today? 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 Patient does have ultrasound and office visit [...] patient/family/caregiver Referring and communicating with other health patient care associate (not separately reported) Documenting clinical information in the electronic or other health record Marielena Hernandez MD Maternal- Medicine [facility] [address] [place] [address] [facility], the CDC, and other organizations representing maternal and public health professionals recommend that , , and lactating people and those considering receive the COVID-19 vaccination. Vaccination is the best method to reduce maternal and complications of SARS-CoV-2 infection. This document was created with [employer] technology. Though I make every effort to review the dictation as it is transcribed, on occasion the spoken word can be misinterpreted by the technology leading to inappropriate words, phrases, or sentences. This note is addressed to the requesting provider as a consultation for clinical guidance. Specific medical abbreviations are occasionally used and those are generally approved by the [place]?Board of?Obstetrics and?Gynecology?as well as?Terrance grimm abbreviations. The above plan of care was based solely on the diagnoses for which a consultation was requested. ?More frequent testing may be indicated based on her other medical/obstetrical conditions. The management of other or medical conditions is beyond the scope of requested consultation and will continue to be followed by the primary business development executive or primary care provider. Note to patient: [...] of the practitioner. documented in this encounter [facility] History of Present illness Narrative 08-21-2023 [...] obesity with alveolar hypoventilation affecting , antepartum ([facility]) documented in this encounter [facility] [...] DATE CREATED AUTHOR AUTHOR'S ORGANIZ ATION 11/14/2023 [facility] EPIC Reason for Visit [...] BE BASED ON THE PRIMARY CLINICAL RECORDS. [facility]. provides no warranty or guarantee of the accuracy or completeness of information in this document.
[2023-11-22 12:11] VITALS: BP 114/74; PULSE 96
== END 2023-11-22 12:30 | disposition home or self-care (01) ==
LOC: FBCO 07:14 → FBC 12:03
PROVIDERS: PCP Nurse Practitioner Primary Care; Visit Provider Obstetrics & Gynecology
DX: O36.63X0 Maternal care for excessive fetal growth, third trimester, not applicable or unspecified (principal)
CPT/HCPCS: 59025

== ENCOUNTER 2023-11-26 07:01 | Outpatient (OUT) | payer MEDICAID, SELFPAY ==
--- OUTSIDE RECORDS SUMMARY | 2023-11-26 07:04 | XMS_ITS | CCD ---
Author Organization [facility] Care Team Providers Care Home Advisor Name Role Phone PAULO ., DR GRIGGS [...] DANO ., DR TATE Consulting Unavailable NEYDA PERZE Consulting Unavailable KARASIK ., DR GRIGGS Procedure [...] UA Negative Negative - 4(70) +++ mg/dL [facility] Blood, UA Negative Negative - 50 Francis/mcL [facility] Clarity, UA Clear [facility] Color, UA Yellow [facility] Glucose, UA Negative Negative - 1999(110) ++++ mg/dL [facility] Interpretation and review of laboratory results Abnormal [facility] Ketones, UA Negative Negative - 160(16) ++++ mg/dL [facility] Leukocytes, UA Negative Negative - 500+++ Shravan/mcL [facility] Nitrite, UA Negative Negative - Positive [facility] pH, UA 6.0 5 - 9 [facility] Protein, UA Trace Negative - 1999(20) ++++ mg/dL [facility] Spec Grav, UA 1.030 1 - 1.03 [facility] Urobilinogen, UA 0.2 0.2 - 12 mg/dL [facility] AFP Single Marker Scrn, Mate rnal, Serumon 07-26-2023 Ms Alpha-Fetoprotein Negative [facility] Free Cell DNAon 2022 Free Cell Dna LOW RISK [facility] CBC without diffon Hematocrit (Bld) [Volume fraction] 38.7 % [facility] Hemoglobin (Bld) [Mass/Vol] 12.0 g/dL [facility] Platelets (Bld) [#/Vol] 365 10*3/uL [facility] HIV 1&2 AB/AG Screen (P24 AG )on 06-20-2023 HIV 1&2 AB/AG Non-Reactive [facility] Hepatitis B surface antigeno n 06-20-2023 Hepatitis B Surface Antigen Negative [facility] Hepatitis C(HCV) Ab w/ Refle x to PCRon 06-20-2023 HCV Ab Ql (S) Non-Reactive [facility] No Panel InformationOrdered By: Nicky Miles on 06-20-2023 [facility] Rubella IGG immune statuson 06-20-2023 Rubella immune IgG 2.23 IMMUNE [facility] Syphilis Total(Unknown Syphi lis Status)Ordered By: Nicky Miles on 06-20-2023 Syphilis Non-Reactive [facility] TSHon 06-20-2023 Thyroid Stimulating (3Rd Generation) Hormone/ Tsh 0.708 [facility] PAP ACOG PANEL 2: 21 to on 11-20-2022 . . Normal [facility] Comment on above: Performed By: #### [id number] #### [facility] [address] [address] [address] Homero Damon Age Gdln ACOG Testing - Normal [facility] Comment on above: Performed By: #### [id number] #### [facility] [address] [address] [address] Homero Damon DIAGNOSIS: Comment Normal [facility] Comment on above: Result Comment: NEGA TIVE FOR INTRAEPITHELIAL LESION OR MALIGNANCY. Performed By: #### [id number] #### [facility] [address] [place] [address] Dr. Homero Damon Methodology: Comment Normal [facility] Comment on above: Result Comment: This liquid based ThinPrep(R) pap test was screened with the use of an image guided system. Performed By: #### [id number] #### [facility] [address] [place] [address] Dr. Homero Damon Note: Comment Normal [facility] Comment on above: Result Comment: The Pap smear is a screening test designed to aid in the detection of premalignant and malignant conditions of the uterine cervix. It is not a diagnostic procedure and should not be used as the sole means of detecting cervical cancer. Both false-positive and false-negative reports do occur. . Performed By: #### [id number] #### [facility] [address] [place] [address] Dr. Homero Damon Performed by: Comment Normal [facility] Comment on above: Result Comment: Haris Alexis, Plastic Surgery Specialist (ASCP) Performed By: #### [id number] #### [facility] [address] [place] [address] Dr. Homero Damon Reflex Criteria: Comment Normal [facility] Comment on above: Result Comment: The HPV DNA reflex criteria were not met with this specimen result therefore, no HPV testing was performed. . Performed By: #### [id number] #### [facility] [address] [place] [address] Dr. Homero Damon Specimen adequacy: Comment Normal [facility] Comment on above: Result Comment: Sati sfactory for evaluation. Endocervical and/or squamous metaplastic cells (endocervical component) are present. Performed By: #### [id number] #### [facility] [address] [place] [address] Dr. Homero Damon CANNABINOID (THC) CONFIRMATI ON, URINEon 03-19-2022 Cannabinoid Positive Abnormal [facility] Comment on above: Performed By: #### T HCCON #### [facility] [address] [place] [address] Dr. Homero Damon Carboxy THC GC/MS Conf 47 ng/mL Normal Cutoff=10 Th e [facility] Comment on above: Performed By: #### T HCCONF #### [facility] [address] [place] [address] Dr. Homero Damon CBC AUTO DIFFon 03-15-2022 BASO # 0.0 103/ul Normal 0.0-0.1 [facility] Comment on above: Performed By: #### C BC #### [facility] [address] [place] [address] Dr. Homero Damon Basophils/100 WBC (Bld) 0.2 % Normal 0.2-2.0 [facility] Comment on above: Performed By: #### C BC #### [facility] [address] [place] [address] Dr. Homero Damon EO # 0.2 103/ul Normal 0.0-0.7 [facility] Comment on above: Performed By: #### C BC #### [facility] [address] [place] [address] Dr. Homero Damon Eosinophils/100 WBC (Bld) 1.5 % Normal 0.9-7.0 [facility] Comment on above: Performed By: #### C BC #### [facility] [address] [place] [address] Dr. Homero Damon Erythrocyte distribution width (RBC) [Ratio] 16.1 % Critically high 11.0-15.0 [facility] Comment on above: Performed By: #### C BC #### [facility] [address] [place] [address] Dr. Homero Damon Hematocrit (Bld) [Volume fraction] 32.7 % Critically low 36.0-48.0 [facility] Comment on above: Performed By: #### C BC #### [facility] [address] [place] [address] Dr. Homero Damon Hemoglobin (Bld) [Mass/Vol] 9.7 g/dL Critically low 12.0-16.0 [facility] Comment on above: Performed By: #### C BC #### [facility] [address] [place] [address] Dr. Homero Damon IG # 0.04 10e3/ul Critically high 0.00-0.03 [facility] Comment on above: Performed By: #### C BC #### [facility] [address] [place] [address] Dr. Homero Damon IG % 0.4 % Normal 0.0-0.5 [facility] Comment on above: Performed By: #### C BC #### [facility] [address] [place] [address] Dr. Homero Damon LYMPH # 3.5 103/ul Normal 1.2-3.8 [facility] Comment on above: Performed By: #### C BC #### [facility] [address] [place] [address] Dr. Homero Damon Lymphocytes/100 WBC (Bld) 32.9 % Normal 20.5-60.0 [facility] Comment on above: Performed By: #### C BC #### [facility] [address] [place] [address] Dr. Homero Damon MANUAL DIFF REQ NO Normal [facility] Comment on above: Performed By: #### C BC #### [facility] [address] [place] [address] Dr. Homero Damon MCH (RBC) [Entitic mass] 23.0 pg Critically low 26.7-34.0 [facility] Comment on above: Performed By: #### C BC #### [facility] [address] [place] [address] Dr. Homero Damon MCHC (RBC) [Mass/Vol] 29.7 g/dL Critically low 29.9-35.2 [facility] Comment on above: Performed By: #### C BC #### [facility] [address] [place] [address] Dr. Homero Damon MCV (RBC) [Entitic vol] 77.7 fL Critically low 81.0-99.0 [facility] Comment on above: Performed By: #### C BC #### [facility] [address] [place] [address] Dr. Homero Damon MONO # 0.8 103/ul Normal 0.3-0.8 [facility] Comment on above: Performed By: #### C BC #### [facility] [address] [place] [address] Dr. Homero Damon Monocytes/100 WBC (Bld) 7.1 % Normal 1.7-12.0 [facility] Comment on above: Performed By: #### C BC #### [facility] [address] [place] [address] Dr. Homero Damon NEUT # 6.1 103/ul Normal 1.4-6.5 [facility] Comment on above: Performed By: #### C BC #### [facility] [address] [place] [address] Dr. Homero Damon Neutrophils/100 WBC (Bld) 57.9 % Normal 43.0-75.0 [facility] Comment on above: Performed By: #### C BC #### [facility] [address] [place] [address] Dr. Homero Damon Platelet mean volume (Bld) [Entitic vol] 11.0 fL Normal 9.5-13.5 [facility] Comment on above: Performed By: #### C BC #### [facility] [address] [place] [address] Dr. Homero Damon PLT 253 103/ul Normal 150-450 [facility] Comment on above: Performed By: #### C BC #### [facility] [address] [place] [address] Dr. Homero Damon RBC 4.21 106/ul Normal 4.20-5.40 [facility] Comment on above: Performed By: #### C BC #### [facility] [address] [place] [address] Dr. Homero Damon WBC 10.6 103/ul Normal 4.0-11.0 [facility] Comment on above: Performed By: #### C BC #### [facility] [address] [place] [address] Dr. Homero Damon CBC AUTO DIFFon 03-13-2022 BASO # 0.0 103/ul Normal 0.0-0.1 [facility] Comment on above: Performed By: #### T HCCONF #### [facility] [address] [place] [address] Dr. Homero Damon Basophils/100 WBC (Bld) 0.3 % Normal 0.2-2.0 [facility] Comment on above: Performed By: #### T HCCONF #### [facility] [address] [place] [address] Dr. Homero Damon EO # 0.0 103/ul Normal 0.0-0.7 [facility] Comment on above: Performed By: #### T HCCONF #### [facility] [address] [place] [address] Dr. Homero Damon Eosinophils/100 WBC (Bld) 0.2 % Critically low 0.9-7.0 [facility] Comment on above: Performed By: #### T HCCONF #### [facility] [address] [place] [address] Dr. Homero Damon Erythrocyte distribution width (RBC) [Ratio] 16.0 % Critically high 11.0-15.0 [facility] Comment on above: Performed By: #### T HCCONF #### [facility] [address] [place] [address] Dr. Homero Damon Hematocrit (Bld) [Volume fraction] 35.3 % Critically low 36.0-48.0 [facility] Comment on above: Performed By: #### T HCCONF #### [facility] [address] [place] [address] Dr. Homero Damon Hemoglobin (Bld) [Mass/Vol] 11.0 g/dL Critically low 12.0-16.0 [facility] Comment on above: Performed By: #### T HCCONF #### [facility] [address] [place] [address] Dr. Homero Damon IG # 0.04 10e3/ul Critically high 0.00-0.03 [facility] Comment on above: Performed By: #### T HCCONF #### [facility] [address] [address] [address] Homero Damon IG % 0.4 % Normal 0.0-0.5 [facility] Comment on above: Performed By: #### T HCCONF #### [facility] [address] [address] [address] Homero Damon LYMPH # 2.5 103/ul Normal 1.2-3.8 [facility] Comment on above: Performed By: #### T HCCONF #### [facility] [address] [address] [address] Homero Damon Lymphocytes/100 WBC (Bld) 26.4 % Normal 20.5-60.0 [facility] Comment on above: Performed By: #### T HCCONF #### [facility] [address] [place] [address] Dr. Homero Damon MANUAL DIFF REQ NO Normal [facility] Comment on above: Performed By: #### T HCCONF #### [facility] [address] [address] [address] Homero Damon MCH (RBC) [Entitic mass] 23.5 pg Critically low 26.7-34.0 [facility] Comment on above: Performed By: #### T HCCONF #### [facility] [address] [place] [address] Dr. Homero Damon MCHC (RBC) [Mass/Vol] 31.2 g/dL Normal 29.9-35.2 [facility] Comment on above: Performed By: #### T HCCONF #### [facility] [address] [address] [address] Homero Damon MCV (RBC) [Entitic vol] 75.4 fL Critically low 81.0-99.0 [facility] Comment on above: Performed By: #### T HCCONF #### [facility] [address] [place] [address] Dr. Homero Damon MONO # 0.6 103/ul Normal 0.3-0.8 [facility] Comment on above: Performed By: #### T HCCONF #### [facility] [address] [place] [address] Dr. Homero Damon Monocytes/100 WBC (Bld) 6.4 % Normal 1.7-12.0 [facility] Comment on above: Performed By: #### T HCCONF #### [facility] [address] [place] [address] Dr. Homero Damon NEUT # 6.4 103/ul Normal 1.4-6.5 [facility] Comment on above: Performed By: #### T HCCONF #### [facility] [address] [place] [address] Dr. Homero Damon Neutrophils/100 WBC (Bld) 66.3 % Normal 43.0-75.0 [facility] Comment on above: Performed By: #### T HCCONF #### [facility] [address] [place] [address] Dr. Homero Damon Platelet mean volume (Bld) [Entitic vol] 11.0 fL Normal 9.5-13.5 [facility] Comment on above: Performed By: #### T HCCONF #### [facility] [address] [place] [address] Dr. Homero Damon PLT 312 103/ul Normal 150-450 [facility] Comment on above: Performed By: #### T HCCONF #### [facility] [address] [place] [address] Dr. Homero Damon RBC 4.68 106/ul Normal 4.20-5.40 [facility] Comment on above: Performed By: #### T HCCONF #### [facility] [address] [place] [address] Dr. Homero Damon WBC 9.6 103/ul Normal 4.0-11.0 [facility] Comment on above: Performed By: #### T HCCONF #### [facility] [address] [place] [address] Dr. Homero Dam[facility] SARS-CoV-2 (COVID-19) RNA LORRAINE+probe Ql (Unsp spec) Not detected Normal NOT DETECTED [facility] Comment on above: Result Comment: When [...] for this test is supported by the [employer] of Health and Human Service's declaration that [...] used). Performed By: #### C VDTBH #### [facility] [address] [place] [address] Dr. Homero Damon DRUG SCREEN RAPID (URINE)on 03-13-2022 AMP Negative Normal NEGATIVE [facility] Comment on above: Performed By: #### D RUGRPD #### [facility] [address] [place] [address] Dr. Homero Damon BAR Negative Normal NEGATIVE [facility] Comment on above: Performed By: #### D RUGRPD #### [facility] [address] [place] [address] Dr. Homero Damon BUP Negative Normal NEGATIVE [facility] Comment on above: Performed By: #### D RUGRPD #### [facility] [address] [place] [address] Dr. Homero Damon BZO Negative Normal NEGATIVE [facility] Comment on above: Performed By: #### D RUGRPD #### [facility] [address] [place] [address] Dr. Homero Damon MADHURI Negative Normal NEGATIVE [facility] Comment on above: Performed By: #### D RUGRPD #### [facility] [address] [place] [address] Dr. Homero Damon CUT-OFFS SEE BELOW Normal [facility] Comment on above: Result Comment: AMP [...] ng/mL Performed By: #### D RUGRPD #### [facility] [address] [place] [address] Dr. Homero Damon DRUG CUT HEADER DRUG CLASS TEST SYSTEM CUT-OFF CONCENTRATIONS ARE FOLLOWS: Normal [facility] Comment on above: Performed By: #### D RUGRPD #### [facility] [address] [place] [address] Dr. Homero Damon mAMP Negative Normal NEGATIVE [facility] Comment on above: Performed By: #### D RUGRPD #### [facility] [address] [place] [address] Dr. Homero Damon MTD Negative Normal NEGATIVE [facility] Comment on above: Performed By: #### D RUGRPD #### [facility] [address] [place] [address] Dr. Homero Damon OPI Negative Normal NEGATIVE [facility] Comment on above: Performed By: #### D RUGRPD #### [facility] [address] [place] [address] Dr. Homero Damon OXY Negative Normal NEGATIVE [facility] Comment on above: Performed By: #### D RUGRPD #### [facility] [address] [place] [address] Dr. Homero Damon PCP Negative Normal NEGATIVE [facility] Comment on above: Performed By: #### D RUGRPD #### [facility] [address] [place] [address] Dr. Homero Damon PPX Negative Normal NEGATIVE [facility] Comment on above: Performed By: #### D RUGRPD #### [facility] [address] [place] [address] Dr. Homero Damon TCA Negative Normal NEGATIVE [facility] Comment on above: Performed By: #### D RUGRPD #### [facility] [address] [place] [address] Dr. Homero Damon THC Positive Abnormal NEGATIVE [facility] Comment on above: Performed By: #### D RUGRPD #### [facility] [address] [place] [address] Dr. Homero Damon TYPE AND SCREENon 03-13-2022 TYPE AND SCREEN Negative Normal [facility] Comment on above: Performed By: #### T HCCONF #### [facility] [address] [place] [address] Dr. Homero Damon UA (CLEAN/CATCH) IRON MELTER/MICRO I F IND.on 03-10-2022 Bilirubin Ql (U) Negative Normal NEGATIVE [facility] Comment on above: Performed By: #### U ACSIND #### [facility] [address] [place] [address] Dr. Homero Damon Clarity (U) CLEAR Normal CLEAR [facility] Comment on above: Performed By: #### U ACSIND #### [facility] [address] [place] [address] Dr. Homero Damon Color (U) YELLOW Normal YELLOW [facility] Comment on above: Performed By: #### U ACSIND #### [facility] [address] [place] [address] Dr. Homero Damon Glucose Ql (U) Negative Normal NEGATIVE [facility] Comment on above: Performed By: #### U ACSIND #### [facility] [address] [place] [address] Dr. Homero Damon Hemoglobin Ql (U) Negative Normal NEGATIVE [facility] Comment on above: Performed By: #### U ACSIND #### [facility] [address] [place] [address] Dr. Homero Damon Ketones Ql (U) Negative Normal NEGATIVE [facility] Comment on above: Performed By: #### U ACSIND #### [facility] [address] [address] [address] Homero Damon LEUKOCYTES Negative Normal NEGATIVE [facility] Comment on above: Performed By: #### U ACSIND #### [facility] [address] [address] [address] Homero Damon Nitrite Ql (U) Negative Normal NEGATIVE [facility] Comment on above: Performed By: #### U ACSIND #### [facility] [address] [address] [address] Homero Damon pH (U) 6.0 [pH] Normal 5-9 [facility] Comment on above: Performed By: #### U ACSIND #### [facility] [address] [place] [address] Dr. Homero Damon SPEC GRAVITY 1.025 Normal 1.005-<=1.025 [facility] Comment on above: Performed By: #### U ACSIND #### [facility] [address] [place] [address] Dr. Homero Damon UA PROTEIN Negative Normal NEGATIVE/ TRACE [facility] Comment on above: Performed By: #### U ACSIND #### [facility] [address] [address] [address] Homero Damon UR MICRO IND NOT INDICATED Normal [facility] Comment on above: Performed By: #### U ACSIND #### [facility] [address] [place] [address] Dr. Homero Damon Urobilinogen Qn (U) 1.0 {Saad'U}/dL Normal 0.2 - 1. 0 [facility] Comment on above: Performed By: #### U ACSIND #### [facility] [address] [place] [address] Dr. Homero Damon GROUP B STREP CULTUREon 02-11 S. agalactiae Ag Ql (Unsp spec) Culture Observations: Called Group B Strep to Millie Armando, Bridal Consultant on 02/25 @ 0917 Isolate 1 Streptococcus agalactiae Moderate growth of ORGANISM 1 Streptococcus agalactiae ANTIBIOTIC M.I.C RX STATUS Benzylpenicillin <=0.06 S F Ampicillin <=0.25 S F Cefotaxime <=0.12 S F Ceftriaxone <=0.12 S F Levofloxacin 0.5 S F Erythromycin >=8 R F Clindamycin >=1 R F Linezolid <=2 S F Vancomycin 0.5 S F Tetracycline >=16 R F Normal [facility] Comment on above: Performed By: #### T HCCONF #### [facility] [address] [place] [address] Dr. Homero Damon CULTURE URINEon 02-23-2022 CULTURE [...] Trimethoprim/Sulfame thoxazole <=20 S F Normal [facility] Comment on above: Performed By: #### U RCX #### [facility] [address] [place] [address] Dr. Homero Damon UA RANDOM W/MICROSCOPICon BACTERIA LARGE Abnormal NONE SEEN [facility] Comment on above: Performed By: #### U AMIC #### [facility] [address] [place] [address] Dr. Homero Damon Bilirubin Ql (U) Negative Normal NEGATIVE [facility] Comment on above: Performed By: #### U AMIC #### [facility] [address] [place] [address] Dr. Homero Damon CAST NONE SEEN Normal NONE SEEN [facility] Comment on above: Performed By: #### U AMIC #### [facility] [address] [place] [address] Dr. Homero Damon Clarity (U) CLEAR Normal CLEAR [facility] Comment on above: Performed By: #### U AMIC #### [facility] [address] [place] [address] Dr. Homero Damon Color (U) LT. YELLOW Normal YELLOW [facility] Comment on above: Performed By: #### U AMIC #### [facility] [address] [address] [address] Homero Damon Crystals LM Nom (Urine sed) NONE SEEN Normal NONE SEEN [facility] Comment on above: Performed By: #### U AMIC #### [facility] [address] [address] [address] Homero Damon Epithelial cells LM Ql (Urine sed) FEW Abnormal NONE SEEN /RARE [facility] Comment on above: Performed By: #### U AMIC #### [facility] [address] [place] [address] Dr. Homero Damon Glucose Ql (U) Negative Normal NEGATIVE [facility] Comment on above: Performed By: #### U AMIC #### [facility] [address] [place] [address] Dr. Homero Damon Hemoglobin Ql (U) Negative Normal NEGATIVE [facility] Comment on above: Performed By: #### U AMIC #### [facility] [address] [place] [address] Dr. Homero Damon Ketones Ql (U) TRACE Abnormal NEGATIVE [facility] Comment on above: Performed By: #### U AMIC #### [facility] [address] [place] [address] Dr. Homero Damon LEUKOCYTES TRACE Abnormal NEGATIVE [facility] Comment on above: Performed By: #### U AMIC #### [facility] [address] [place] [address] Dr. Homero Damon MUCOUS NONE SEEN Normal NONE SEEN [facility] Comment on above: Performed By: #### U AMIC #### [facility] [address] [place] [address] Dr. Homero Damon Nitrite Ql (U) Negative Normal NEGATIVE The [facility] Comment on above: Performed By: #### U AMIC #### [facility] [address] [address] [address] Homero Damon pH (U) 6.0 [pH] Normal 5-9 [facility] Comment on above: Performed By: #### U AMIC #### [facility] [address] [address] [address] Homero Damon RBC NONE SEEN Abnormal 0-2 [facility] Comment on above: Performed By: #### U AMIC #### [facility] [address] [place] [address] Dr. Homero Damon SPEC GRAVITY 1.025 Normal 1.005-<=1.025 The [facility] Comment on above: Performed By: #### U AMIC #### [facility] [address] [place] [address] Dr. Homero Damon UA PROTEIN Negative Normal NEGATIVE/ TRACE [facility] Comment on above: Performed By: #### U AMIC #### [facility] [address] [place] [address] Dr. Homero Damon Urobilinogen Qn (U) 0.2 {Saad'U}/dL Normal 0.2 - 1. 0 [facility] Comment on above: Performed By: #### U AMIC #### [facility] [address] [place] [address] Dr. Homero Damon WBC 5-10 Abnormal NONE SEEN [facility] Comment on above: Performed By: #### U AMIC #### [facility] [address] [place] [address] Dr. Homero Damon GLUCOSE - 1HRon 12-12-2021 Glucose [Mass/Vol] 128 mg/dL Critically high 74-106 T [facility] Comment on above: Performed By: #### G LU1HR #### [facility] [address] [place] [address] Dr. Homero Damon HEMOGRAM AND PLATELon 2021 Hematocrit (Bld) [Volume fraction] 38.8 % Normal 36.0-48.0 [facility] Comment on above: Performed By: #### H H #### [facility] [address] [place] [address] Dr. Homero Damon Hemoglobin (Bld) [Mass/Vol] 12.3 g/dL Normal 12.0-16.0 [facility] Comment on above: Performed By: #### H H #### [facility] [address] [place] [address] Dr. Homero Damon MCH (RBC) [Entitic mass] 25.8 pg Critically low 26.7-34.0 [facility] Comment on above: Performed By: #### H H #### [facility] [address] [place] [address] Dr. Homero Damon MCHC (RBC) [Mass/Vol] 31.7 g/dL Normal 29.9-35.2 [facility] Comment on above: Performed By: #### H H #### [facility] [address] [place] [address] Dr. Homero Damon MCV (RBC) [Entitic vol] 81.3 fL Normal 81.0-99.0 [facility] Comment on above: Performed By: #### H H #### [facility] [address] [place] [address] Dr. Homero Damon PLT 304 103/ul Normal 150-450 [facility] Comment on above: Performed By: #### H H #### [facility] [address] [place] [address] Dr. Homero Damon RBC 4.77 106/ul Normal 4.20-5.40 [facility] Comment on above: Performed By: #### H H #### [facility] [address] [place] [address] Dr. Homero Damon WBC 9.9 103/ul Normal 4.0-11.0 [facility] Comment on above: Performed By: #### H H #### [facility] [address] [place] [address] Dr. Homero Damon CULTURE URINEon 12-06-2021 CULTURE [...] Trimethoprim/Sulfame thoxazole <=20 S F Normal [facility] Comment on above: Performed By: #### T HCCONF #### [facility] [address] [place] [address] Dr. Homero Damon Vital Signs Date Time Vital Sign Value Performing Clinician Faci lity 09-03-2023 10:39-0500 Body height 160 cm Marielena Hernandez MD Work Phone: [facility] 09-03-2023 10:39-0500 Body mass index (BMI) [Ratio] 41.45 kg/m2 Marielena Hernandez MD Work Phone: [facility] 09-03-2023 10:39-0500 Body weight 106.14 kg Marielena Hernandez MD Work Phone: [facility] 09-03-2023 10:39-0500 Diastolic blood pressure 88 mm[Hg] Marielena Hernandez MD Work Phone: [facility] 09-03-2023 10:39-0500 Heart rate 98 /min Marielena Hernandez MD Work Phone: [facility] 09-03-2023 10:39-0500 Systolic blood pressure 123 mm[Hg] Marielena Hernandez MD Work Phone: [facility] 08-21-2023 10:31-0500 Body mass index (BMI) [Ratio] 43.48 kg/m2 Trisha CASTELLANOS Work Phone: [facility] 08-21-2023 10:31-0500 Body weight 104.38 kg Trisha CASTELLANOS Work Phone: [facility] 08-21-2023 10:31-0500 Diastolic blood pressure 60 mm[Hg] Trisha CASTELLANOS Work Phone: [facility] 08-21-2023 10:31-0500 Systolic blood pressure 118 mm[Hg] Trisha CASTELLANOS Work Phone: [facility] Encounters Encounter Date Encounter Type Care Provider Facility Start: 11-13-2023 End: 11-13-2023 ambulatory TRISHA SLATER Not Available Start: 10-30-2023 End: 10-30-2023 ambulatory LEA DANO Not Available Start: 10-15-2023 End: 10-15-2023 ambulatory TRISHA BRYON Not Available Start: 09-17-2023 End: 09-17-2023 ambulatory LEA DANO Not Available Start: 09-03-2023 End: 09-03-20[facility] Start: 09-03-2023 End: 09-03-2023 Office outpatient visit 10 minutes Marielena Hernandez MD Work Phone: [facility] [place] Comment on above: 22 weeks gestation o f (Primary Dx); Severe obesity with alveolar hypoventilation affecting , antepartum ([facility] Start: 08-21-2023 End: 08-21-2023 ambulatory TRISHA SLATER Not Available Start: 08-21-2023 End: 08-21-2023 Office outpatient visit 15 minutes Trisha CASTELLANOS Work Phone: [facility] Comment on above: Second trimester pre gnancy; Diabetes mellitus screening Start: 08-20-2023 Chart abstracting Marielena Hernandez MD Work Phone: [facility] Start: 07-23-2023 End: 07-23-2023 ambulatory LEA [...] Td Vaccines (8 - Td or Tdap) [facility] Start: 09-17-2023 End: 09-17-2023 Patient encounter procedure 09/17/2023 10:50 AM EST Routine [facility] [address] [place] [address] [place] [address] Lea Cole, DO [address] [place] [address] [place] [address] [facility] Start: 09-03-2023 End: 09-03-2023 Patient encounter procedure [facility] Start: 08-21-2023 End: 08-21-2024 CBC panel - Blood by Automated count CBC Lab Routine Diabetes mellitus screening Expected: 08/21/2023 (Approximate), Expires: 08/21/2024 [facility] Work Phone: Comment on above: Expected: 08/21/2023 (Approximate), Expires: 08/21/2024 Start: 08-21-2023 End: 08-21-2024 Measurement of glucose 1 hour after glucose challenge for glucose tolerance test Glucose tolerance, 1 hour Lab Routine Diabetes mellitus screening Expected: 08/21/2023 (Approximate), Expires: 08/21/2024 [facility] Comment on above: Expected: 08/21/2023 (Approximate), Expires: 08/21/2024 Start: 03-14-2023 Influenza vaccination Influenza Vacc ine [facility] Start: 2021 Screening for malign ant neoplasm of cervix Pap Smear [facility] Start: 2019 DTaP,Tdap and Td Vaccines (1 - Tdap) DTaP,Tdap and Td Vaccines (1 - Tdap) [facility] Start: 2018 Adult BMI Follow Up Plan Adult BMI Follow Up Plan [facility] Start: 2018 Adult BMI Screening Adult BMI Screen ing [facility] Start: 2012 Depression Screening Depression Scre ening [facility] Start: 2012 Tobacco Screening Tobacco Screening [facility] Immunizations Immunization Date Immunization Notes Care Provider Dioni noe 06-03-2013 influenza virus vaccine, unspecified formulation Marielena Hernandez MD Work Phone: [facility] Payers Date Payer Category Payer Medicaid [id number] 2022 Medicaid [id number] 2022 Medicaid [id number] 2000 Unknown [id number] 2.16.84 [id number] 2000 Unknown [id number] 2.16.84 0.1.534101.3.579.2.593 2000 Unknown [id number] 2.16.84 0.1.591571.3.579.2.593 2000 Unknown [id number] 2.16.84 0.1.102755.3.579.2.593 2000 Unknown [id number] 2.16.84 0.1.484011.3.579.2.593 2000 Unknown [id number] 2.16.84 0.1.939370.3.579.2.593 2000 Unknown [id number] 2.16.84 0.1.148588.3.579.2.593 2000 Unknown [id number] 2.16.8 40.1.880990.3.579.2.1286 2000 Unknown [id number] 2.16.8 40.1.987063.3.579.2.1286 2000 Unknown [id number] 2.16.84 0.1.871626.3.579.2.1259 2000 Unknown [id number] 2.16.84 0.1.121995.3.579.2.1259 2000 Unknown [id number] 2.16.84 0.1.962555.3.579.2.1259 2000 Unknown [id number] 2.16.84 0.1.800551.3.579.2.1259 2000 Unknown [id number] 2.16.84 0.1.894090.3.579.2.1259 2000 Unknown [id number] 2.16.84 0.1.385048.3.579.2.1259 2000 Unknown [id number] 2.16.840 .1.839445.3.579.2.1259 1959 Unknown [id number] Social History Date Type Detail Facility Start: 04-08-2017 End: 09-03-2023 Tobacco smoking status NHIS Never smoked tobacco [facility] Start: 04-08-2017 End: 09-03-2023 Tobacco use and exposure Smokeless tobacco non-user [facility] Start: 08-20-2023 End: 09-03-2023 Alcohol intake Current non-drinker of alcohol (finding) [facility] Start: 08-24-2020 End: 08-20-2023 History of Social function [facility] Start: 08-24-2020 End: 08-20-2023 Tobacco use panel [facility] Childcare Unknown [facility] Start: 04-14-2023 [facility] Start: 2000 Sex Assigned At Not on file P [facility] Start: 06-13-2023 Gender identity Identifies [...] Yes Have you been seen here at [facility] in a previous ? No Recent ER visits or hospitalizations? No Bring blood sugar log or meter with you today? (Please bring them with you for every visit at [facility]) N/A Traveled outside the country in [...] TESTS AND ULTRASOUND REPORTS: Referral records and [facility] chart were reviewed Pertinent Ultrasound findings are [...] patient is in complete care of her suede brusher. Patient does have ultrasound and office visit [...] Referring and communicating with other health healthcare social worker (not separately reported) Documenting clinical information in the electronic or other health record Marielena Hernandez MD M[facility]- [facility] [address] [facility] [address] [place] [address] [facility], the CDC, and other organizations representing maternal and public health professionals recommend that , , and lactating people and those considering receive the COVID-19 vaccination. Vaccination is the best method to reduce maternal and complications of SARS-CoV-2 infection. This document was created with [employer] technology. Though I make every effort to review the dictation as it is transcribed, on occasion the spoken word can be misinterpreted by the technology leading to inappropriate words, phrases, or sentences. This note is addressed to the requesting provider as a consultation for clinical guidance. Specific medical abbreviations are occasionally used and those are generally approved by the [place]?Board of?Obstetrics and?Gynecology?as well as?Terrance grimm abbreviations. The above plan of care was based solely on the diagnoses for which a consultation was requested. ?More frequent testing may be indicated based on her other medical/obstetrical conditions. The management of other or medical conditions is beyond the scope of requested consultation and will continue to be followed by the primary suede brusher or primary care provider. Note to patient: [...] of the practitioner. documented in this encounter [facility] History of Present illness Narrative 08-21-2023 [...] obesity with alveolar hypoventilation affecting , antepartum ([facility]) documented in this encounter [facility] [...] DATE CREATED AUTHOR AUTHOR'S ORGANIZ ATION 11/14/2023 [facility] EPIC Reason for Visit [...] BE BASED ON THE PRIMARY CLINICAL RECORDS. [facility]. provides no warranty or guarantee of the accuracy or completeness of information in this document.
--- NOTE | 2023-11-26 08:09 | US_ITS ---
[address] [address] Patient Name: JULIANA MICHELE MRN: [id number] date: 2000 Sex: F Assigned Patient Location: [facility] Accession/Order Number: [id number] Exam Date: 11/26/2023 08:12 Report Date: 11/26/2023 08:37 At the request of: LEA MATSON Procedure: US OB BPP w non-stress EXAMINATION: US OB BPP w non-stress HISTORY: Excessive growth COMPARISON: No relevant comparison available. TECHNIQUE: Ultrasound biophysical profile was performed in the radiology department. non-reactive stress testing was performed by nursing staff in the birthing center. FINDINGS: BREATHING MOVEMENTS: 2.0 GROSS BODY MOVEMENTS: 2.0 TONE: 2.0 QUALITATIVE AMNIOTIC FLUID VOLUME: 2.0 PRESENTATION: CEPHALIC HEART RATE: 154.3 bpm H.B./min AMNIOTIC FLUID VOLUME: 10.1 cm cm GESTATIONAL AGE: 34 weeks 2 days CONCLUSION: Total biophysical profile score: 8.0 Electronically authenticated by: BETTYE MICHELLE Date: 11/26/2023 08:37
[2023-11-26 08:33] VITALS: BP 116/65; PULSE 113
== END 2023-11-26 09:00 | disposition home or self-care (01) ==
LOC: US 07:01 → FBC 08:12
PROVIDERS: PCP Nurse Practitioner Primary Care; Visit Provider Obstetrics & Gynecology
DX: O36.63X0 Maternal care for excessive fetal growth, third trimester, not applicable or unspecified (principal); Z13.1 Encounter for screening for diabetes mellitus; Z3A.34 34 weeks gestation of pregnancy
CPT/HCPCS: 76818

== ENCOUNTER 2023-11-29 08:11 | Outpatient (OUT) | payer MEDICAID, SELFPAY ==
--- OUTSIDE RECORDS SUMMARY | 2023-11-29 08:14 | XMS_ITS | CCD ---
Author Organization [facility] [place] Care Team Providers Care Styrene Dehydration Reactor Operator Name Role Phone PAULO ., DR [...] Negative Negative - 4(70) +++ mg/dL [facility] Blood, UA Negative Negative - 50 Francis/mcL [facility] Clarity, UA Clear [facility] Color, UA Yellow [facility] Glucose, UA Negative Negative - 1999(110) ++++ mg/dL [facility] Interpretation and review of laboratory results Abnormal [facility] Ketones, UA Negative Negative - 160(16) ++++ mg/dL [facility] Leukocytes, UA Negative Negative - 500+++ Shravan/mcL [facility] Nitrite, UA Negative Negative - Positive [facility] pH, UA 6.0 5 - 9 [facility] Protein, UA Trace Negative - 1999(20) ++++ mg/dL [facility] Spec Grav, UA 1.030 1 - 1.03 [facility] Urobilinogen, UA 0.2 0.2 - 12 mg/dL [facility] AFP Single Marker Scrn, Mate rnal, Serumon 07-26-2023 Ms Alpha-Fetoprotein Negative [facility] Free Cell DNAon 2022 Free Cell Dna LOW RISK [facility] CBC without diffon Hematocrit (Bld) [Volume fraction] 38.7 % [facility] Hemoglobin (Bld) [Mass/Vol] 12.0 g/dL [facility] Platelets (Bld) [#/Vol] 365 10*3/uL [facility] HIV 1&2 AB/AG Screen (P24 AG )on 06-20-2023 HIV 1&2 AB/AG Non-Reactive [facility] Hepatitis B surface antigeno n 06-20-2023 Hepatitis B Surface Antigen Negative [facility] Hepatitis C(HCV) Ab w/ Refle x to PCRon 06-20-2023 HCV Ab Ql (S) Non-Reactive [facility] No Panel InformationOrdered By: Nicky Miles on 06-20-2023 [facility] Rubella IGG immune statuson 06-20-2023 Rubella immune IgG 2.23 IMMUNE [facility] Syphilis Total(Unknown Syphi lis Status)Ordered By: Nicky Miles on 06-20-2023 Syphilis Non-Reactive [facility] TSHon 06-20-2023 Thyroid Stimulating (3Rd Generation) Hormone/ Tsh 0.708 [facility] PAP ACOG PANEL 2: 21 to on 11-20-2022 . . Normal [facility] Comment on above: Performed By: #### [id number] #### [facility] [address] [address] [address] Homero Damon Age Gdln ACOG Testing - Normal [facility] Comment on above: Performed By: #### [id number] #### [facility] [address] [address] [address] Homero Damon DIAGNOSIS: Comment Normal [facility] Comment on above: Result Comment: NEGA TIVE FOR INTRAEPITHELIAL LESION OR MALIGNANCY. Performed By: #### [id number] #### [facility] [address] [place] [address] Dr. Homero Damon Methodology: Comment Normal [facility] Comment on above: Result Comment: This liquid based ThinPrep(R) pap test was screened with the use of an image guided system. Performed By: #### [id number] #### [facility] [address] [place] [address] Dr. Homero Damon Note: Comment Normal [facility] Comment on above: Result Comment: The Pap smear is a screening test designed to aid in the detection of premalignant and malignant conditions of the uterine cervix. It is not a diagnostic procedure and should not be used as the sole means of detecting cervical cancer. Both false-positive and false-negative reports do occur. . Performed By: #### [id number] #### [facility] [address] [place] [address] Dr. Homero Damon Performed by: Comment Normal [facility] Comment on above: Result Comment: Haris Alexis, Administrative Accountant (ASCP) Performed By: #### [id number] #### [facility] [address] [place] [address] Dr. Homero Damon Reflex Criteria: Comment Normal [facility] Comment on above: Result Comment: The HPV DNA reflex criteria were not met with this specimen result therefore, no HPV testing was performed. . Performed By: #### [id number] #### [facility] [address] [place] [address] Dr. Homero Damon Specimen adequacy: Comment Normal [facility] Comment on above: Result Comment: Sati sfactory for evaluation. Endocervical and/or squamous metaplastic cells (endocervical component) are present. Performed By: #### [id number] #### [facility] [address] [place] [address] Dr. Homero Damon CANNABINOID (THC) CONFIRMATI ON, URINEon 03-19-2022 Cannabinoid Positive Abnormal [facility] Comment on above: Performed By: #### T HCCON #### [facility] [address] [place] [address] Dr. Homero Damon Carboxy THC GC/MS Conf 47 ng/mL Normal Cutoff=10 Th e [facility] Comment on above: Performed By: #### T HCCONF #### [facility] [address] [place] [address] Dr. Homero Damon CBC AUTO DIFFon 03-15-2022 BASO # 0.0 103/ul Normal 0.0-0.1 [facility] Comment on above: Performed By: #### C BC #### [facility] [address] [place] [address] Dr. Homero Damon Basophils/100 WBC (Bld) 0.2 % Normal 0.2-2.0 [facility] Comment on above: Performed By: #### C BC #### [facility] [address] [place] [address] Dr. Homero Damon EO # 0.2 103/ul Normal 0.0-0.7 [facility] Comment on above: Performed By: #### C BC #### [facility] [address] [place] [address] Dr. Homero Damon Eosinophils/100 WBC (Bld) 1.5 % Normal 0.9-7.0 [facility] Comment on above: Performed By: #### C BC #### [facility] [address] [place] [address] Dr. Homero Damon Erythrocyte distribution width (RBC) [Ratio] 16.1 % Critically high 11.0-15.0 [facility] Comment on above: Performed By: #### C BC #### [facility] [address] [place] [address] Dr. Homero Damon Hematocrit (Bld) [Volume fraction] 32.7 % Critically low 36.0-48.0 [facility] Comment on above: Performed By: #### C BC #### [facility] [address] [place] [address] Dr. Homero Damon Hemoglobin (Bld) [Mass/Vol] 9.7 g/dL Critically low 12.0-16.0 [facility] Comment on above: Performed By: #### C BC #### [facility] [address] [place] [address] Dr. Homero Damon IG # 0.04 10e3/ul Critically high 0.00-0.03 [facility] Comment on above: Performed By: #### C BC #### [facility] [address] [place] [address] Dr. Homero Damon IG % 0.4 % Normal 0.0-0.5 [facility] Comment on above: Performed By: #### C BC #### [facility] [address] [place] [address] Dr. Homero Damon LYMPH # 3.5 103/ul Normal 1.2-3.8 [facility] Comment on above: Performed By: #### C BC #### [facility] [address] [place] [address] Dr. Homero Damon Lymphocytes/100 WBC (Bld) 32.9 % Normal 20.5-60.0 [facility] Comment on above: Performed By: #### C BC #### [facility] [address] [place] [address] Dr. Homero Damon MANUAL DIFF REQ NO Normal [facility] Comment on above: Performed By: #### C BC #### [facility] [address] [place] [address] Dr. Homero Damon MCH (RBC) [Entitic mass] 23.0 pg Critically low 26.7-34.0 [facility] Comment on above: Performed By: #### C BC #### [facility] [address] [place] [address] Dr. Homero Damon MCHC (RBC) [Mass/Vol] 29.7 g/dL Critically low 29.9-35.2 [facility] Comment on above: Performed By: #### C BC #### [facility] [address] [place] [address] Dr. Homero Damon MCV (RBC) [Entitic vol] 77.7 fL Critically low 81.0-99.0 [facility] Comment on above: Performed By: #### C BC #### [facility] [address] [place] [address] Dr. Homero Damon MONO # 0.8 103/ul Normal 0.3-0.8 [facility] Comment on above: Performed By: #### C BC #### [facility] [address] [place] [address] Dr. Homero Damon Monocytes/100 WBC (Bld) 7.1 % Normal 1.7-12.0 [facility] Comment on above: Performed By: #### C BC #### [facility] [address] [place] [address] Dr. Homero Damon NEUT # 6.1 103/ul Normal 1.4-6.5 [facility] Comment on above: Performed By: #### C BC #### [facility] [address] [place] [address] Dr. Homero Damon Neutrophils/100 WBC (Bld) 57.9 % Normal 43.0-75.0 [facility] Comment on above: Performed By: #### C BC #### [facility] [address] [place] [address] Dr. Homero Damon Platelet mean volume (Bld) [Entitic vol] 11.0 fL Normal 9.5-13.5 [facility] Comment on above: Performed By: #### C BC #### [facility] [address] [place] [address] Dr. Homero Damon PLT 253 103/ul Normal 150-450 [facility] Comment on above: Performed By: #### C BC #### [facility] [address] [place] [address] Dr. Homero Damon RBC 4.21 106/ul Normal 4.20-5.40 [facility] Comment on above: Performed By: #### C BC #### [facility] [address] [place] [address] Dr. Homero Damon WBC 10.6 103/ul Normal 4.0-11.0 [facility] Comment on above: Performed By: #### C BC #### [facility] [address] [place] [address] Dr. Homero aDmon CBC AUTO DIFFon 03-13-2022 BASO # 0.0 103/ul Normal 0.0-0.1 [facility] Comment on above: Performed By: #### T HCCONF #### [facility] [address] [place] [address] Dr. Homero Damon Basophils/100 WBC (Bld) 0.3 % Normal 0.2-2.0 [facility] Comment on above: Performed By: #### T HCCONF #### [facility] [address] [place] [address] Dr. Homero Damon EO # 0.0 103/ul Normal 0.0-0.7 [facility] Comment on above: Performed By: #### T HCCONF #### [facility] [address] [place] [address] Dr. Homero Damon Eosinophils/100 WBC (Bld) 0.2 % Critically low 0.9-7.0 [facility] Comment on above: Performed By: #### T HCCONF #### [facility] [address] [place] [address] Dr. Homero Damon Erythrocyte distribution width (RBC) [Ratio] 16.0 % Critically high 11.0-15.0 [facility] Comment on above: Performed By: #### T HCCONF #### [facility] [address] [place] [address] Dr. Homero Damon Hematocrit (Bld) [Volume fraction] 35.3 % Critically low 36.0-48.0 [facility] Comment on above: Performed By: #### T HCCONF #### [facility] [address] [place] [address] Dr. Homero Damon Hemoglobin (Bld) [Mass/Vol] 11.0 g/dL Critically low 12.0-16.0 [facility] Comment on above: Performed By: #### T HCCONF #### [facility] [address] [place] [address] Dr. Homero Damon IG # 0.04 10e3/ul Critically high 0.00-0.03 [facility] Comment on above: Performed By: #### T HCCONF #### [facility] [address] [address] [address] Homero Damon IG % 0.4 % Normal 0.0-0.5 [facility] Comment on above: Performed By: #### T HCCONF #### [facility] [address] [address] [address] Homero Damon LYMPH # 2.5 103/ul Normal 1.2-3.8 [facility] Comment on above: Performed By: #### T HCCONF #### [facility] [address] [address] [address] Homero Damon Lymphocytes/100 WBC (Bld) 26.4 % Normal 20.5-60.0 [facility] Comment on above: Performed By: #### T HCCONF #### [facility] [address] [place] [address] Dr. Homero Damon MANUAL DIFF REQ NO Normal [facility] Comment on above: Performed By: #### T HCCONF #### [facility] [address] [address] [address] Homero Damon MCH (RBC) [Entitic mass] 23.5 pg Critically low 26.7-34.0 [facility] Comment on above: Performed By: #### T HCCONF #### [facility] [address] [place] [address] Dr. Homero Damon MCHC (RBC) [Mass/Vol] 31.2 g/dL Normal 29.9-35.2 [facility] Comment on above: Performed By: #### T HCCONF #### [facility] [address] [address] [address] Homero Damon MCV (RBC) [Entitic vol] 75.4 fL Critically low 81.0-99.0 [facility] Comment on above: Performed By: #### T HCCONF #### [facility] [address] [place] [address] Dr. Homero Damon MONO # 0.6 103/ul Normal 0.3-0.8 [facility] Comment on above: Performed By: #### T HCCONF #### [facility] [address] [place] [address] Dr. Homero Damon Monocytes/100 WBC (Bld) 6.4 % Normal 1.7-12.0 [facility] Comment on above: Performed By: #### T HCCONF #### [facility] [address] [place] [address] Dr. Homero Damon NEUT # 6.4 103/ul Normal 1.4-6.5 [facility] Comment on above: Performed By: #### T HCCONF #### [facility] [address] [place] [address] Dr. Homero Damon Neutrophils/100 WBC (Bld) 66.3 % Normal 43.0-75.0 [facility] Comment on above: Performed By: #### T HCCONF #### [facility] [address] [place] [address] Dr. Homero Damon Platelet mean volume (Bld) [Entitic vol] 11.0 fL Normal 9.5-13.5 [facility] Comment on above: Performed By: #### T HCCONF #### [facility] [address] [place] [address] Dr. Homero Damon PLT 312 103/ul Normal 150-450 [facility] Comment on above: Performed By: #### T HCCONF #### [facility] [address] [place] [address] Dr. Homero Damon RBC 4.68 106/ul Normal 4.20-5.40 [facility] Comment on above: Performed By: #### T HCCONF #### [facility] [address] [place] [address] Dr. Homero Damon WBC 9.6 103/ul Normal 4.0-11.0 [facility] Comment on above: Performed By: #### T HCCONF #### [facility] [address] [place] [address] Dr. Homero Dam[facility] SARS-CoV-2 (COVID-19) RNA LORRAINE+probe Ql (Unsp spec) Not detected Normal NOT DETECTED [facility] Comment on above: Result Comment: When [...] for this test is supported by the [employer] and Human Service's declaration that [...] used). Performed By: #### C VDTBH #### [facility] [address] [place] [address] Dr. Homero Damon DRUG SCREEN RAPID (URINE)on 03-13-2022 AMP Negative Normal NEGATIVE [facility] Comment on above: Performed By: #### D RUGRPD #### [facility] [address] [place] [address] Dr. Homero Damon BAR Negative Normal NEGATIVE [facility] Comment on above: Performed By: #### D RUGRPD #### [facility] [address] [place] [address] Dr. Homero Damon BUP Negative Normal NEGATIVE [facility] Comment on above: Performed By: #### D RUGRPD #### [facility] [address] [place] [address] Dr. Homero Damon BZO Negative Normal NEGATIVE [facility] Comment on above: Performed By: #### D RUGRPD #### [facility] [address] [place] [address] Dr. Homero Damon MADHURI Negative Normal NEGATIVE [facility] Comment on above: Performed By: #### D RUGRPD #### [facility] [address] [place] [address] Dr. Homero Damon CUT-OFFS SEE BELOW Normal [facility] Comment on above: Result Comment: AMP [...] ng/mL Performed By: #### D RUGRPD #### [facility] [address] [place] [address] Dr. Homero Damon DRUG CUT HEADER DRUG CLASS TEST SYSTEM CUT-OFF CONCENTRATIONS ARE FOLLOWS: Normal [facility] Comment on above: Performed By: #### D RUGRPD #### [facility] [address] [place] [address] Dr. Homero Damon mAMP Negative Normal NEGATIVE [facility] Comment on above: Performed By: #### D RUGRPD #### [facility] [address] [place] [address] Dr. Homero Damon MTD Negative Normal NEGATIVE [facility] Comment on above: Performed By: #### D RUGRPD #### [facility] [address] [place] [address] Dr. Homero Damon OPI Negative Normal NEGATIVE [facility] Comment on above: Performed By: #### D RUGRPD #### [facility] [address] [place] [address] Dr. Homero Damon OXY Negative Normal NEGATIVE [facility] Comment on above: Performed By: #### D RUGRPD #### [facility] [address] [place] [address] Dr. Homero Damon PCP Negative Normal NEGATIVE [facility] Comment on above: Performed By: #### D RUGRPD #### [facility] [address] [place] [address] Dr. Homero Damon PPX Negative Normal NEGATIVE [facility] Comment on above: Performed By: #### D RUGRPD #### [facility] [address] [place] [address] Dr. Homero Damon TCA Negative Normal NEGATIVE [facility] Comment on above: Performed By: #### D RUGRPD #### [facility] [address] [place] [address] Dr. Homero Damon THC Positive Abnormal NEGATIVE [facility] Comment on above: Performed By: #### D RUGRPD #### [facility] [address] [place] [address] Dr. Homero Damon TYPE AND SCREENon 03-13-2022 TYPE AND SCREEN Negative Normal [facility] Comment on above: Performed By: #### T HCCONF #### [facility] [address] [place] [address] Dr. Homero Damon UA (CLEAN/CATCH) PORTABLE CANTEEN OPERATOR/MICRO I F IND.on 03-10-2022 Bilirubin Ql (U) Negative Normal NEGATIVE [facility] Comment on above: Performed By: #### U ACSIND #### [facility] [address] [place] [address] Dr. Homero Damon Clarity (U) CLEAR Normal CLEAR [facility] Comment on above: Performed By: #### U ACSIND #### [facility] [address] [place] [address] Dr. Homero Damon Color (U) YELLOW Normal YELLOW [facility] Comment on above: Performed By: #### U ACSIND #### [facility] [address] [place] [address] Dr. Homero Damon Glucose Ql (U) Negative Normal NEGATIVE [facility] Comment on above: Performed By: #### U ACSIND #### [facility] [address] [place] [address] Dr. Homero Damon Hemoglobin Ql (U) Negative Normal NEGATIVE [facility] Comment on above: Performed By: #### U ACSIND #### [facility] [address] [place] [address] Dr. Homero Damon Ketones Ql (U) Negative Normal NEGATIVE [facility] Comment on above: Performed By: #### U ACSIND #### [facility] [address] [address] [address] Homero Damon LEUKOCYTES Negative Normal NEGATIVE [facility] Comment on above: Performed By: #### U ACSIND #### [facility] [address] [address] [address] Homero Damon Nitrite Ql (U) Negative Normal NEGATIVE [facility] Comment on above: Performed By: #### U ACSIND #### [facility] [address] [address] [address] Homero Damon pH (U) 6.0 [pH] Normal 5-9 [facility] Comment on above: Performed By: #### U ACSIND #### [facility] [address] [place] [address] Dr. Homero Damon SPEC GRAVITY 1.025 Normal 1.005-<=1.025 [facility] Comment on above: Performed By: #### U ACSIND #### [facility] [address] [place] [address] Dr. Homero Damon UA PROTEIN Negative Normal NEGATIVE/ TRACE [facility] Comment on above: Performed By: #### U ACSIND #### [facility] [address] [address] [address] Homero Damon UR MICRO IND NOT INDICATED Normal [facility] Comment on above: Performed By: #### U ACSIND #### [facility] [address] [place] [address] Dr. Homero Damon Urobilinogen Qn (U) 1.0 {Saad'U}/dL Normal 0.2 - 1. 0 [facility] Comment on above: Performed By: #### U ACSIND #### [facility] [address] [place] [address] Dr. Homero Damon GROUP B STREP CULTUREon 02-11 S. agalactiae Ag Ql (Unsp spec) Culture Observations: Called Group B Strep to Millie Armando, Sign Designer on 02/25 @ 0917 Isolate 1 Streptococcus agalactiae Moderate growth of ORGANISM 1 Streptococcus agalactiae ANTIBIOTIC M.I.C RX STATUS Benzylpenicillin <=0.06 S F Ampicillin <=0.25 S F Cefotaxime <=0.12 S F Ceftriaxone <=0.12 S F Levofloxacin 0.5 S F Erythromycin >=8 R F Clindamycin >=1 R F Linezolid <=2 S F Vancomycin 0.5 S F Tetracycline >=16 R F Normal [facility] Comment on above: Performed By: #### T HCCONF #### [facility] [address] [place] [address] Dr. Homero Damon CULTURE URINEon 02-23-2022 CULTURE [...] Trimethoprim/Sulfame thoxazole <=20 S F Normal [facility] Comment on above: Performed By: #### U RCX #### [facility] [address] [place] [address] Dr. Homero Damon UA RANDOM W/MICROSCOPICon BACTERIA LARGE Abnormal NONE SEEN [facility] Comment on above: Performed By: #### U AMIC #### [facility] [address] [place] [address] Dr. Homero Damon Bilirubin Ql (U) Negative Normal NEGATIVE [facility] Comment on above: Performed By: #### U AMIC #### [facility] [address] [place] [address] Dr. Homero Damon CAST NONE SEEN Normal NONE SEEN [facility] Comment on above: Performed By: #### U AMIC #### [facility] [facility] [address] [place] [address] Dr. Homero Damon Clarity (U) CLEAR Normal CLEAR [facility] Comment on above: Performed By: #### U AMIC #### [facility] [address] [place] [address] Dr. Homero Damon Color (U) LT. YELLOW Normal YELLOW [facility] Comment on above: Performed By: #### U AMIC #### [facility] [address] [address] [address] Homero Damon Crystals LM Nom (Urine sed) NONE SEEN Normal NONE SEEN [facility] Comment on above: Performed By: #### U AMIC #### [facility] [address] [address] [address] Homero Damon Epithelial cells LM Ql (Urine sed) FEW Abnormal NONE SEEN /RARE [facility] Comment on above: Performed By: #### U AMIC #### [facility] [address] [place] [address] Dr. Homero Damon Glucose Ql (U) Negative Normal NEGATIVE [facility] Comment on above: Performed By: #### U AMIC #### [facility] [address] [place] [address] Dr. Homero Damon Hemoglobin Ql (U) Negative Normal NEGATIVE [facility] Comment on above: Performed By: #### U AMIC #### [facility] [address] [place] [address] Dr. Homero Damon Ketones Ql (U) TRACE Abnormal NEGATIVE [facility] Comment on above: Performed By: #### U AMIC #### [facility] [address] [place] [address] Dr. Homero Damon LEUKOCYTES TRACE Abnormal NEGATIVE [facility] Comment on above: Performed By: #### U AMIC #### [facility] [address] [place] [address] Dr. Homero Damon MUCOUS NONE SEEN Normal NONE SEEN [facility] Comment on above: Performed By: #### U AMIC #### [facility] [address] [place] [address] Dr. Homero Damon Nitrite Ql (U) Negative Normal NEGATIVE [facility] Comment on above: Performed By: #### U AMIC #### [facility] [address] [address] [address] Homero Damon pH (U) 6.0 [pH] Normal 5-9 [facility] Comment on above: Performed By: #### U AMIC #### [facility] [address] [address] [address] Homero Damon RBC NONE SEEN Abnormal 0-2 [facility] Comment on above: Performed By: #### U AMIC #### [facility] [address] [place] [address] Dr. Homero Damon SPEC GRAVITY 1.025 Normal 1.005-<=1.025 [facility] Comment on above: Performed By: #### U AMIC #### [facility] [address] [place] [address] Dr. Homero Damon UA PROTEIN Negative Normal NEGATIVE/ TRACE [facility] Comment on above: Performed By: #### U AMIC #### [facility] [address] [place] [address] Dr. Homero Damon Urobilinogen Qn (U) 0.2 {Saad'U}/dL Normal 0.2 - 1. 0 [facility] Comment on above: Performed By: #### U AMIC #### [facility] [address] [place] [address] Dr. Homero Damon WBC 5-10 Abnormal NONE SEEN [facility] Comment on above: Performed By: #### U AMIC #### [facility] [address] [place] [address] Dr. Homero Damon GLUCOSE - 1HRon 12-12-2021 Glucose [Mass/Vol] 128 mg/dL Critically high 74-106 T [facility] Comment on above: Performed By: #### G LU1HR #### [facility] [address] [place] [address] Dr. Homero Damon HEMOGRAM AND PLATELon 2021 Hematocrit (Bld) [Volume fraction] 38.8 % Normal 36.0-48.0 [facility] Comment on above: Performed By: #### H H #### [facility] [address] [place] [address] Dr. Homero Damon Hemoglobin (Bld) [Mass/Vol] 12.3 g/dL Normal 12.0-16.0 [facility] Comment on above: Performed By: #### H H #### [facility] [address] [place] [address] Dr. Homero Damon MCH (RBC) [Entitic mass] 25.8 pg Critically low 26.7-34.0 [facility] Comment on above: Performed By: #### H H #### [facility] [address] [place] [address] Dr. Homero Damon MCHC (RBC) [Mass/Vol] 31.7 g/dL Normal 29.9-35.2 [facility] Comment on above: Performed By: #### H H #### [facility] [address] [place] [address] Dr. Homero Damon MCV (RBC) [Entitic vol] 81.3 fL Normal 81.0-99.0 [facility] Comment on above: Performed By: #### H H #### [facility] [address] [place] [address] Dr. Homero Damon PLT 304 103/ul Normal 150-450 [facility] Comment on above: Performed By: #### H H #### [facility] [address] [place] [address] Dr. Homero Damon RBC 4.77 106/ul Normal 4.20-5.40 [facility] Comment on above: Performed By: #### H H #### [facility] [address] [place] [address] Dr. Homero Damon WBC 9.9 103/ul Normal 4.0-11.0 [facility] Comment on above: Performed By: #### H H #### [facility] [address] [place] [address] Dr. Homero Damon CULTURE URINEon 12-06-2021 CULTURE [...] Trimethoprim/Sulfame thoxazole <=20 S F Normal [facility] Comment on above: Performed By: #### T HCCONF #### [facility] [address] [place] [address] Dr. Homero Damon Vital Signs Date Time Vital Sign Value Performing Clinician Faci lity 09-03-2023 10:39-0500 Body height 160 cm Marielena Hernandez MD Work Phone: [facility] 09-03-2023 10:39-0500 Body mass index (BMI) [Ratio] 41.45 kg/m2 Marielena Hernandez MD Work Phone: [facility] 09-03-2023 10:39-0500 Body weight 106.14 kg Marielena Hernandez MD Work Phone: [facility] 09-03-2023 10:39-0500 Diastolic blood pressure 88 mm[Hg] Marielena Hernandez MD Work Phone: [facility] 09-03-2023 10:39-0500 Heart rate 98 /min Marielena Hernandez MD Work Phone: [facility] 09-03-2023 10:39-0500 Systolic blood pressure 123 mm[Hg] Marielena Hernandez MD Work Phone: [facility] 08-21-2023 10:31-0500 Body mass index (BMI) [Ratio] 43.48 kg/m2 Trisha CASTELLANOS Work Phone: [facility] 08-21-2023 10:31-0500 Body weight 104.38 kg Trisha CASTELLANOS Work Phone: [facility] 08-21-2023 10:31-0500 Diastolic blood pressure 60 mm[Hg] Trisha CASTELLANOS Work Phone: [facility] 08-21-2023 10:31-0500 Systolic blood pressure 118 mm[Hg] Trisha CASTELLANOS Work Phone: [facility] Encounters Encounter Date Encounter Type Care Provider Facility Start: 11-13-2023 End: 11-13-2023 ambulatory TRISHA SLATER Not Available Start: 10-30-2023 End: 10-30-2023 ambulatory LEA DANO Not Available Start: 10-15-2023 End: 10-15-2023 ambulatory TRISHA BRYON Not Available Start: 09-17-2023 End: 09-17-2023 ambulatory LEA DANO Not Available Start: 09-03-2023 End: 09-03-20[facility] Start: 09-03-2023 End: 09-03-2023 Office outpatient visit 10 minutes Marielena Hernandez MD Work Phone: [facility] [place] Comment on above: 22 weeks gestation o f (Primary Dx); Severe obesity with alveolar hypoventilation affecting , antepartum ([facility]) Start: 08-21-2023 End: 08-21-2023 ambulatory TRISHA SLATER Not Available Start: 08-21-2023 End: 08-21-2023 Office outpatient visit 15 minutes Trisha CASTELLANOS Work Phone: [facility] Comment on above: Second trimester pre gnancy; Diabetes mellitus screening Start: 08-20-2023 Chart abstracting Marielena Hernandez MD Work Phone: [facility] Start: 07-23-2023 End: 07-23-2023 ambulatory [...] Td Vaccines (8 - Td or Tdap) [facility] [employer] [facility] Start: 09-17-2023 End: 09-17-2023 Patient encounter procedure 09/17/2023 10:50 AM EST Routine [facility] [address] [place] [address] [place] [address] Lea Cole, DO [address] [place] [address] [place] [address] [facility] Start: 09-03-2023 End: 09-03-2023 Patient encounter procedure [facility] Start: 08-21-2023 End: 08-21-2024 CBC panel - Blood by Automated count CBC Lab Routine Diabetes mellitus screening Expected: 08/21/2023 (Approximate), Expires: 08/21/2024 [facility] Work Phone: Comment on above: Expected: 08/21/2023 (Approximate), Expires: 08/21/2024 Start: 08-21-2023 End: 08-21-2024 Measurement of glucose 1 hour after glucose challenge for glucose tolerance test Glucose tolerance, 1 hour Lab Routine Diabetes mellitus screening Expected: 08/21/2023 (Approximate), Expires: 08/21/2024 [facility] Comment on above: Expected: 08/21/2023 (Approximate), Expires: 08/21/2024 Start: 03-14-2023 Influenza vaccination Influenza Vacc ine [facility] Start: 2021 Screening for malign ant neoplasm of cervix Pap Smear [facility] Start: 2019 DTaP,Tdap and Td Vaccines (1 - Tdap) DTaP,Tdap and Td Vaccines (1 - Tdap) [facility] Start: 2018 Adult BMI Follow Up Plan Adult BMI Follow Up Plan [facility] Start: 2018 Adult BMI Screening Adult BMI Screen ing [facility] Start: 2012 Depression Screening Depression Scre ening [facility] Start: 2012 Tobacco Screening Tobacco Screening [facility] Immunizations Immunization Date Immunization Notes Care Provider Dioni noe 06-03-2013 influenza virus vaccine, unspecified formulation Marielena Hernandez MD Work Phone: [facility] Payers Date Payer Category Payer Medicaid [id number] 2022 Medicaid [id number] 2022 Medicaid [id number] 2000 Unknown [id number] 2.16.84 [id number] 2000 Unknown [id number] 2.16.84 0.1.226663.3.579.2.593 2000 Unknown [id number] 2.16.84 0.1.344402.3.579.2.593 2000 Unknown [id number] 2.16.84 0.1.354872.3.579.2.593 2000 Unknown [id number] 2.16.84 0.1.118812.3.579.2.593 2000 Unknown [id number] 2.16.84 0.1.621962.3.579.2.593 2000 Unknown [id number] 2.16.84 0.1.571121.3.579.2.593 2000 Unknown [id number] 2.16.8 40.1.693647.3.579.2.1286 2000 Unknown [id number] 2.16.8 40.1.026205.3.579.2.1286 2000 Unknown [id number] 2.16.84 0.1.682117.3.579.2.1259 2000 Unknown [id number] 2.16.84 0.1.594727.3.579.2.1259 2000 Unknown [id number] 2.16.84 0.1.651126.3.579.2.1259 2000 Unknown [id number] 2.16.84 0.1.786954.3.579.2.1259 2000 Unknown [id number] 2.16.84 0.1.450483.3.579.2.1259 2000 Unknown [id number] 2.16.84 0.1.725829.3.579.2.1259 2000 Unknown [id number] 2.16.840 .[id number] 1959 Unknown [id number] Social History Date Type Detail Facility Start: 04-08-2017 End: 09-03-2023 Tobacco smoking status NHIS Never smoked tobacco [facility] Start: 04-08-2017 End: 09-03-2023 Tobacco use and exposure Smokeless tobacco non-user [facility] Start: 08-20-2023 End: 09-03-2023 Alcohol intake Current non-drinker of alcohol (finding) [facility] Start: 08-24-2020 End: 08-20-2023 History of Social function [facility] Start: 08-24-2020 End: 08-20-2023 Tobacco use panel [facility] Childcare Unknown [facility] Start: 04-14-2023 [facility] Start: 2000 Sex Assigned At Not on file [facility] Start: 06-13-2023 Gender identity Identifies [...] Yes Have you been seen here at [facility] in a previous ? No Recent ER visits or hospitalizations? No Bring blood sugar log or meter with you today? (Please bring them with you for every visit at [facility]) N/A Traveled outside the country in [...] TESTS AND ULTRASOUND REPORTS: Referral records and [facility] chart were reviewed Pertinent Ultrasound [...] patient is in complete care of her pocket operator. Patient does have ultrasound and office visit [...] Referring and communicating with other health healthcare financial analyst (not separately reported) Documenting clinical information in the electronic or other health record Marielena Hernandez MD M[facility] [address] [facility] [address] [place] [address] [facility], the CDC, and other organizations representing maternal and public health professionals recommend that , , and lactating people and those considering receive the COVID-19 vaccination. Vaccination is the best method to reduce maternal and complications of SARS-CoV-2 infection. This document was created with [email or web address] technology. Though I make every effort to review the dictation as it is transcribed, on occasion the spoken word can be misinterpreted by the technology leading to inappropriate words, phrases, or sentences. This note is addressed to the requesting provider as a consultation for clinical guidance. Specific medical abbreviations are occasionally used and those are generally approved by the [place]?Board of?Obstetrics and?Gynecology?as well as?Terrance grimm abbreviations. The above plan of care was based solely on the diagnoses for which a consultation was requested. ?More frequent testing may be indicated based on her other medical/obstetrical conditions. The management of other or medical conditions is beyond the scope of requested consultation and will continue to be followed by the primary pocket operator or primary care provider. Note to patient: [...] of the practitioner. documented in this encounter [facility] History of Present illness Narrative 08-21-2023 [...] obesity with alveolar hypoventilation affecting , antepartum ([facility]) documented in this encounter [facility] [...] DATE CREATED AUTHOR AUTHOR'S ORGANIZ ATION 11/14/2023 [facility] EPIC Reason for Visit (unrecogniz [...] BE BASED ON THE PRIMARY CLINICAL RECORDS. [facility]. provides no warranty or guarantee of the accuracy or completeness of information in this document.
[2023-11-29 12:13] VITALS: BP 122/80; PULSE 127
== END 2023-11-29 12:40 | disposition home or self-care (01) ==
LOC: FBCO 08:11 → FBC 12:04
PROVIDERS: PCP Nurse Practitioner Primary Care; Visit Provider Obstetrics & Gynecology
DX: O36.63X0 Maternal care for excessive fetal growth, third trimester, not applicable or unspecified (principal)
CPT/HCPCS: 59025

== ENCOUNTER 2023-12-03 07:40 | Outpatient (OUT) | payer MEDICAID, SELFPAY ==
--- OUTSIDE RECORDS SUMMARY | 2023-12-03 08:28 | XMS_ITS | CCD ---
Author Organization [facility] CliniSyut Care Team Providers Care Culinary Arts Teacher Name Role Phone PAULO ., DR GRIGGS [...] e DANO ., DR TATE Consulting Unavailable NEDYA PEREZ Consulting Unavailable KARASIK ., DR GRIGGS Procedure Practitioner Anuja vailable Unavailable Primary Care Provider Unavailabl e Unavailable Primary Care Provider UnavailLEA Ventura R Referring Unavailable MARIELENA HERNANDEZ Attending Unavailable LEA COLE Attending Unavailable TRISHA SLATER Attending Unavailable LEA COLE Attending Unavailable TRISHA SLATER Attending Unavailable LEA COLE Attending Unavailable TRISHA SLATER Attending Unavailable LEA COLE Attending Unavailable Medications Current Medications Medication Drug [...] UA Negative Negative - 4(70) +++ mg/dL [facility] Blood, UA Negative Negative - 50 Francis/mcL [facility] Clarity, UA Clear [facility] Color, UA Yellow [facility] Glucose, UA Negative Negative - 1999(110) ++++ mg/dL [facility] Interpretation and review of laboratory results Abnormal [facility] Ketones, UA Negative Negative - 160(16) ++++ mg/dL [facility] Leukocytes, UA Negative Negative - 500+++ Shravan/mcL [facility] Nitrite, UA Negative Negative - Positive [facility] pH, UA 6.0 5 - 9 [facility] Protein, UA Trace Negative - 1999(20) ++++ mg/dL [facility] Spec Grav, UA 1.030 1 - 1.03 [facility] Urobilinogen, UA 0.2 0.2 - 12 mg/dL [facility] AFP Single Marker ScrnRalph rnal, Serumon 07-26-2023 Ms Alpha-Fetoprotein Negative [facility] Free Cell DNAon 2022 Free Cell Dna LOW RISK [facility] CBC without diffon Hematocrit (Bld) [Volume fraction] 38.7 % [facility] Hemoglobin (Bld) [Mass/Vol] 12.0 g/dL [facility] Platelets (Bld) [#/Vol] 365 10*3/uL [facility] HIV 1&2 AB/AG Screen (P24 AG )on 06-20-2023 HIV 1&2 AB/AG Non-Reactive [facility] Hepatitis B surface antigeno n 06-20-2023 Hepatitis B Surface Antigen Negative [facility] Hepatitis C(HCV) Ab w/ Refle x to PCRon 06-20-2023 HCV Ab Ql (S) Non-Reactive [facility] No Panel InformationOrdered By: Nicky Miles on 06-20-2023 [facility] Rubella IGG immune statuson 06-20-2023 Rubella immune IgG 2.23 IMMUNE [facility] Syphilis Total(Unknown Syphi lis Status)Ordered By: Nicky Miles on 06-20-2023 Syphilis Non-Reactive [facility] TSHon 06-20-2023 Thyroid Stimulating (3Rd Generation) Hormone/ Tsh 0.708 [facility] PAP ACOG PANEL 2: 21 to on 11-20-2022 . . Normal [facility] Comment on above: Performed By: #### [id number] #### [facility] [address] [place] [address] Dr. Homero Damon Age Gdln ACOG Testing - [facility] Comment on above: Performed By: #### [id number] #### [facility] [address] [place] [address] Dr. Homero Damon DIAGNOSIS: Comment [facility] Comment on above: Result Comment: NEGA TIVE FOR INTRAEPITHELIAL LESION OR MALIGNANCY. Performed By: #### [id number] #### [facility] [address] [place] [address] Dr. Homero Damon Methodology: Comment Normal [facility] Comment on above: Result Comment: This liquid based ThinPrep(R) pap test was screened with the use of an image guided system. Performed By: #### [id number] #### [facility] [address] [place] [address] Dr. Homero Damon Note: Comment Normal [facility] Comment on above: Result Comment: The Pap smear is a screening test designed to aid in the detection of premalignant and malignant conditions of the uterine cervix. It is not a diagnostic procedure and should not be used as the sole means of detecting cervical cancer. Both false-positive and false-negative reports do occur. . Performed By: #### [id number] #### [facility] [address] [place] [address] Dr. Homero Damon Performed by: Comment Normal [facility] Comment on above: Result Comment: Haris Alexis, Music Therapy Teacher (ASCP) Performed By: #### [id number] #### [facility] [address] [place] [address] Dr. Homero Damon Reflex Criteria: Comment Normal [facility] Comment on above: Result Comment: The HPV DNA reflex criteria were not met with this specimen result therefore, no HPV testing was performed. . Performed By: #### [id number] #### [facility] [address] [place] [address] Dr. Homero Damon Specimen adequacy: Comment Normal [facility] Comment on above: Result Comment: Sati sfactory for evaluation. Endocervical and/or squamous metaplastic cells (endocervical component) are present. Performed By: #### [id number] #### [facility] [address] [place] [address] Dr. Homero Damon CANNABINOID (THC) CONFIRMATI ON, URINEon 03-19-2022 Cannabinoid Positive Abnormal [facility] Comment on above: Performed By: #### T HCCONF #### [facility] [address] [address] [address] Homero Damon Carboxy THC GC/MS Conf 47 ng/mL Normal Cutoff=10 Th e [facility] Comment on above: Performed By: #### T HCCONF #### [facility] [address] [place] [address] Dr. Homero Damon CBC AUTO DIFFon 03-15-2022 BASO # 0.0 103/ul Normal 0.0-0.1 [facility] Comment on above: Performed By: #### C BC #### [facility] [address] [place] [address] Dr. Homero Damon Basophils/100 WBC (Bld) 0.2 % Normal 0.2-2.0 [facility] Comment on above: Performed By: #### C BC #### [facility] [address] [place] [address] Dr. Homero Damon EO # 0.2 103/ul Normal 0.0-0.7 [facility] Comment on above: Performed By: #### C BC #### [facility] [address] [place] [address] Dr. Homero Damon Eosinophils/100 WBC (Bld) 1.5 % Normal 0.9-7.0 [facility] Comment on above: Performed By: #### C BC #### [facility] [address] [place] [address] Dr. Homero Damon Erythrocyte distribution width (RBC) [Ratio] 16.1 % Critically high 11.0-15.0 [facility] Comment on above: Performed By: #### C BC #### [facility] [address] [place] [address] Dr. Homero Damon Hematocrit (Bld) [Volume fraction] 32.7 % Critically low 36.0-48.0 [facility] Comment on above: Performed By: #### C BC #### [facility] [address] [place] [address] Dr. Homero Damon Hemoglobin (Bld) [Mass/Vol] 9.7 g/dL Critically low 12.0-16.0 [facility] Comment on above: Performed By: #### C BC #### [facility] [address] [place] [address] Dr. Homero Damon IG # 0.04 10e3/ul Critically high 0.00-0.03 [facility] Comment on above: Performed By: #### C BC #### [facility] [address] [place] [address] Dr. Homero Damon IG % 0.4 % Normal 0.0-0.5 [facility] Comment on above: Performed By: #### C BC #### [facility] [address] [place] [address] Dr. Homero Damon LYMPH # 3.5 103/ul Normal 1.2-3.8 [facility] Comment on above: Performed By: #### C BC #### [facility] [address] [place] [address] Dr. Homero Damon Lymphocytes/100 WBC (Bld) 32.9 % Normal 20.5-60.0 [facility] Comment on above: Performed By: #### C BC #### [facility] [address] [place] [address] Dr. Homero Damon MANUAL DIFF REQ NO Normal [facility] Comment on above: Performed By: #### C BC #### [facility] [address] [place] [address] Dr. Homero Damon MCH (RBC) [Entitic mass] 23.0 pg Critically low 26.7-34.0 [facility] Comment on above: Performed By: #### C BC #### [facility] [address] [place] [address] Dr. Homero Damon MCHC (RBC) [Mass/Vol] 29.7 g/dL Critically low 29.9-35.2 [facility] Comment on above: Performed By: #### C BC #### [facility] [address] [place] [address] Dr. Homero Damon MCV (RBC) [Entitic vol] 77.7 fL Critically low 81.0-99.0 [facility] Comment on above: Performed By: #### C BC #### [facility] [address] [place] [address] Dr. Homero Damon MONO # 0.8 103/ul Normal 0.3-0.8 [facility] Comment on above: Performed By: #### C BC #### [facility] [address] [place] [address] Dr. Homero Damon Monocytes/100 WBC (Bld) 7.1 % Normal 1.7-12.0 [facility] Comment on above: Performed By: #### C BC #### [facility] [address] [place] [address] Dr. Homero Damon NEUT # 6.1 103/ul Normal 1.4-6.5 [facility] Comment on above: Performed By: #### C BC #### [facility] [address] [place] [address] Dr. Homero Damon Neutrophils/100 WBC (Bld) 57.9 % Normal 43.0-75.0 [facility] Comment on above: Performed By: #### C BC #### [facility] [address] [place] [address] Dr. Homero Damon Platelet mean volume (Bld) [Entitic vol] 11.0 fL Normal 9.5-13.5 [facility] Comment on above: Performed By: #### C BC #### [facility] [address] [place] [address] Dr. Homero Damon PLT 253 103/ul Normal 150-450 [facility] Comment on above: Performed By: #### C BC #### [facility] [address] [place] [address] Dr. Homero Damon RBC 4.21 106/ul Normal 4.20-5.40 [facility] Comment on above: Performed By: #### C BC #### [facility] [address] [place] [address] Dr. Homero Damon WBC 10.6 103/ul Normal 4.0-11.0 [facility] Comment on above: Performed By: #### C BC #### [facility] [address] [place] [address] Dr. Homero Damon CBC AUTO DIFFon 03-13-2022 BASO # 0.0 103/ul Normal 0.0-0.1 [facility] Comment on above: Performed By: #### T HCCONF #### [facility] [address] [place] [address] Dr. Homero Damon Basophils/100 WBC (Bld) 0.3 % Normal 0.2-2.0 [facility] Comment on above: Performed By: #### T HCCONF #### [facility] [address] [place] [address] Dr. Homero Damon EO # 0.0 103/ul Normal 0.0-0.7 [facility] Comment on above: Performed By: #### T HCCONF #### [facility] [address] [place] [address] Dr. Homero Damon Eosinophils/100 WBC (Bld) 0.2 % Critically low 0.9-7.0 [facility] Comment on above: Performed By: #### T HCCONF #### [facility] [address] [place] [address] Dr. Homero Damon Erythrocyte distribution width (RBC) [Ratio] 16.0 % Critically high 11.0-15.0 [facility] Comment on above: Performed By: #### T HCCONF #### [facility] [address] [place] [address] Dr. Homero Damon Hematocrit (Bld) [Volume fraction] 35.3 % Critically low 36.0-48.0 [facility] Comment on above: Performed By: #### T HCCONF #### [facility] [address] [place] [address] Dr. Homero Damon Hemoglobin (Bld) [Mass/Vol] 11.0 g/dL Critically low 12.0-16.0 [facility] Comment on above: Performed By: #### T HCCONF #### [facility] [address] [place] [address] Dr. Homero Damon IG # 0.04 10e3/ul Critically high 0.00-0.03 [facility] Comment on above: Performed By: #### T HCCONF #### [facility] [address] [address] [address] Homero Damon IG % 0.4 % Normal 0.0-0.5 [facility] Comment on above: Performed By: #### T HCCONF #### [facility] [address] [address] [address] Homero Damon LYMPH # 2.5 103/ul Normal 1.2-3.8 [facility] Comment on above: Performed By: #### T HCCONF #### [facility] [address] [place] [address] Dr. Homero Damon Lymphocytes/100 WBC (Bld) 26.4 % Normal 20.5-60.0 [facility] Comment on above: Performed By: #### T HCCONF #### [facility] [address] [place] [address] Dr. Homero Damon MANUAL DIFF REQ NO Normal [facility] Comment on above: Performed By: #### T HCCONF #### [facility] [address] [place] [address] Dr. Homero Damon MCH (RBC) [Entitic mass] 23.5 pg Critically low 26.7-34.0 [facility] Comment on above: Performed By: #### T HCCONF #### [facility] [address] [place] [address] Dr. Homero Damon MCHC (RBC) [Mass/Vol] 31.2 g/dL Normal 29.9-35.2 [facility] Comment on above: Performed By: #### T HCCONF #### [facility] [address] [place] [address] Dr. Homero Damon MCV (RBC) [Entitic vol] 75.4 fL Critically low 81.0-99.0 [facility] Comment on above: Performed By: #### T HCCONF #### [facility] [address] [place] [address] Dr. Homero Damon MONO # 0.6 103/ul Normal 0.3-0.8 [facility] Comment on above: Performed By: #### T HCCONF #### [facility] [address] [place] [address] Dr. Homero Damon Monocytes/100 WBC (Bld) 6.4 % Normal 1.7-12.0 [facility] Comment on above: Performed By: #### T HCCONF #### [facility] [address] [place] [address] Dr. Homero Damon NEUT # 6.4 103/ul Normal 1.4-6.5 [facility] Comment on above: Performed By: #### T HCCONF #### [facility] [address] [place] [address] Dr. Homero Damon Neutrophils/100 WBC (Bld) 66.3 % Normal 43.0-75.0 [facility] Comment on above: Performed By: #### T HCCONF #### [facility] [address] [place] [address] Dr. Homero Damon Platelet mean volume (Bld) [Entitic vol] 11.0 fL Normal 9.5-13.5 [facility] Comment on above: Performed By: #### T HCCONF #### [facility] [address] [place] [address] Dr. Homero Damon PLT 312 103/ul Normal 150-450 [facility] Comment on above: Performed By: #### T HCCONF #### [facility] [address] [place] [address] Dr. Homero Damon RBC 4.68 106/ul Normal 4.20-5.40 [facility] Comment on above: Performed By: #### T HCCONF #### [facility] [address] [place] [address] Dr. Homero Damon WBC 9.6 103/ul Normal 4.0-11.0 [facility] Comment on above: Performed By: #### T HCCONF #### [facility] [address] [place] [address] Dr. Homero Damon [facility] SARS-CoV-2 (COVID-19) RNA LORRAINE+probe Ql (Unsp spec) Not detected Normal NOT DETECTED [facility] Comment on above: Result Comment: When [...] for this test is supported by the [employer] As[employer]er of Health and Human Service's declaration that [...] Performed By: #### C VDTBH #### [facility] [address] [place] [address] Dr. Homero Damon DRUG SCREEN RAPID (URINE)on 03-13-2022 AMP Negative Normal NEGATIVE [facility] Comment on above: Performed By: #### D RUGRPD #### [facility] [address] [place] [address] Dr. Homero Damon BAR Negative Normal NEGATIVE [facility] Comment on above: Performed By: #### D RUGRPD #### [facility] [address] [place] [address] Dr. Homero Damon BUP Negative Normal NEGATIVE [facility] Comment on above: Performed By: #### D RUGRPD #### [facility] [address] [place] [address] Dr. Homero Damon BZO Negative Normal NEGATIVE [facility] Comment on above: Performed By: #### D RUGRPD #### [facility] [address] [place] [address] Dr. Homero Damon MADHURI Negative Normal NEGATIVE [facility] Comment on above: Performed By: #### D RUGRPD #### [facility] [address] [place] [address] Dr. Homero Damon CUT-OFFS SEE BELOW Normal [facility] Comment on above: Result Comment: AMP (Amphetamine): [...] Performed By: #### D RUGRPD #### [facility] [address] [place] [address] Dr. Homero Damon DRUG CUT HEADER DRUG CLASS TEST SYSTEM CUT-OFF CONCENTRATIONS ARE FOLLOWS: Normal [facility] Comment on above: Performed By: #### D RUGRPD #### [facility] [address] [place] [address] Dr. Homero Damon mAMP Negative Normal NEGATIVE [facility] Comment on above: Performed By: #### D RUGRPD #### [facility] [address] [place] [address] Dr. Homero Damon MTD Negative Normal NEGATIVE [facility] Comment on above: Performed By: #### D RUGRPD #### [facility] [address] [address] [address] Homero Damon OPI Negative Normal NEGATIVE [facility] Comment on above: Performed By: #### D RUGRPD #### [facility] [address] [address] [address] Homero Damon OXY Negative Normal NEGATIVE [facility] Comment on above: Performed By: #### D RUGRPD #### [facility] [address] [place] [address] Dr. Homero Damon PCP Negative Normal NEGATIVE [facility] Comment on above: Performed By: #### D RUGRPD #### [facility] [address] [place] [address] Dr. Homero Damon PPX Negative Normal NEGATIVE [facility] Comment on above: Performed By: #### D RUGRPD #### [facility] [address] [place] [address] Dr. Homero Damon TCA Negative Normal NEGATIVE [facility] Comment on above: Performed By: #### D RUGRPD #### [facility] [address] [place] [address] Dr. Homero Damon THC Positive Abnormal NEGATIVE [facility] Comment on above: Performed By: #### D RUGRPD #### [facility] [address] [place] [address] Dr. Homero Damon TYPE AND SCREENon 03-13-2022 TYPE AND SCREEN Negative Normal [facility] Comment on above: Performed By: #### T HCCONF #### [facility] [address] [place] [address] Dr. Homero Damon UA (CLEAN/CATCH) MENTAL HEALTH ADVANCED PRACTICE NURSE/MICRO I F IND.on 03-10-2022 Bilirubin Ql (U) Negative Normal NEGATIVE [facility] Comment on above: Performed By: #### U ACSIND #### [facility] [address] [place] [address] Dr. Homero Damon Clarity (U) CLEAR Normal CLEAR [facility] Comment on above: Performed By: #### U ACSIND #### [facility] [address] [place] [address] Dr. Homero Damon Color (U) YELLOW Normal YELLOW [facility] Comment on above: Performed By: #### U ACSIND #### [facility] [address] [place] [address] Dr. Homero Damon Glucose Ql (U) Negative Normal NEGATIVE [facility] Comment on above: Performed By: #### U ACSIND #### [facility] [address] [place] [address] Dr. Homero Damon Hemoglobin Ql (U) Negative Normal NEGATIVE [facility] Comment on above: Performed By: #### U ACSIND #### [facility] [address] [place] [address] Dr. Homero Damon Ketones Ql (U) Negative Normal NEGATIVE [facility] Comment on above: Performed By: #### U ACSIND #### [facility] [address] [place] [address] Dr. Homero Damon LEUKOCYTES Negative Normal NEGATIVE [facility] Comment on above: Performed By: #### U ACSIND #### [facility] [address] [address] [address] Homero Damon Nitrite Ql (U) Negative Normal NEGATIVE [facility] Comment on above: Performed By: #### U ACSIND #### [facility] [address] [place] [address] Dr. Homero Damon pH (U) 6.0 [pH] Normal 5-9 [facility] Comment on above: Performed By: #### U ACSIND #### [facility] [address] [place] [address] Dr. Homero Damon SPEC GRAVITY 1.025 Normal 1.005-<=1.025 [facility] Comment on above: Performed By: #### U ACSIND #### [facility] [address] [place] [address] Dr. Homero Damon UA PROTEIN Negative Normal NEGATIVE/ TRACE [facility] Comment on above: Performed By: #### U ACSIND #### [facility] [address] [place] [address] Dr. Homero Damon UR MICRO IND NOT INDICATED Normal [facility] Comment on above: Performed By: #### U ACSIND #### [facility] [address] [place] [address] Dr. Homero Damon Urobilinogen Qn (U) 1.0 {Saad'U}/dL Normal 0.2 - 1. 0 [facility] Comment on above: Performed By: #### U ACSIND #### [facility] [address] [place] [address] Dr. Homero Damon GROUP B STREP CULTUREon 02-11 S. agalactiae Ag Ql (Unsp spec) Culture Observations: Called Group B Strep to Millie Armando, Rpg Developer on 02/25 @ 0917 Isolate 1 Streptococcus agalactiae Moderate growth of ORGANISM 1 Streptococcus agalactiae ANTIBIOTIC M.I.C RX STATUS Benzylpenicillin <=0.06 S F Ampicillin <=0.25 S F Cefotaxime <=0.12 S F Ceftriaxone <=0.12 S F Levofloxacin 0.5 S F Erythromycin >=8 R F Clindamycin >=1 R F Linezolid <=2 S F Vancomycin 0.5 S F Tetracycline >=16 R F Normal [facility] Comment on above: Performed By: #### T HCCONF #### [facility] [address] [place] [address] Dr. Homero Damon CULTURE URINEon 02-23-2022 CULTURE [...] thoxazole <=20 S F Normal [facility] Comment on above: Performed By: #### U RCX #### [facility] [address] [place] [address] Dr. Homero Damon UA RANDOM W/MICROSCOPICon BACTERIA LARGE Abnormal NONE SEEN [facility] Comment on above: Performed By: #### U AMIC #### [facility] [address] [place] [address] Dr. Homero Damon Bilirubin Ql (U) Negative Normal NEGATIVE [facility] Comment on above: Performed By: #### U AMIC #### [facility] [address] [place] [address] Dr. Homero Damon CAST NONE SEEN Normal NONE SEEN [facility] Comment on above: Performed By: #### U AMIC #### [facility] [address] [address] [address] Homero Damon Clarity (U) CLEAR Normal CLEAR [facility] Comment on above: Performed By: #### U AMIC #### [facility] [address] [address] [address] Homero Damon Color (U) LT. YELLOW Normal YELLOW [facility] Comment on above: Performed By: #### U AMIC #### [facility] [address] [address] [address] Homero Damon Crystals LM Nom (Urine sed) NONE SEEN Normal NONE SEEN [facility] Comment on above: Performed By: #### U AMIC #### [facility] [address] [place] [address] Dr. Homero Damon Epithelial cells LM Ql (Urine sed) FEW Abnormal NONE SEEN /RARE [facility] Comment on above: Performed By: #### U AMIC #### [facility] [address] [place] [address] Dr. Homero Damon Glucose Ql (U) Negative Normal NEGATIVE [facility] Comment on above: Performed By: #### U AMIC #### [facility] [address] [place] [address] Dr. Homero Damon Hemoglobin Ql (U) Negative Normal NEGATIVE [facility] Comment on above: Performed By: #### U AMIC #### [facility] [address] [place] [address] Dr. Homero Damon Ketones Ql (U) TRACE Abnormal NEGATIVE [facility] Comment on above: Performed By: #### U AMIC #### [facility] [address] [place] [address] Dr. Homero Damon LEUKOCYTES TRACE Abnormal NEGATIVE [facility] Comment on above: Performed By: #### U AMIC #### [facility] [address] [place] [address] Dr. Homero Damon MUCOUS NONE SEEN Normal NONE SEEN [facility] Comment on above: Performed By: #### U AMIC #### [facility] [address] [place] [address] Dr. Homero Damon Nitrite Ql (U) Negative Normal NEGATIVE [facility] Comment on above: Performed By: #### U AMIC #### [facility] [address] [place] [address] Dr. Homero Damon pH (U) 6.0 [pH] Normal 5-9 [facility] Comment on above: Performed By: #### U AMIC #### [facility] [address] [place] [address] Dr. Homero Damon RBC NONE SEEN Abnormal 0-2 [facility] Comment on above: Performed By: #### U AMIC #### [facility] [address] [place] [address] Dr. Homero Damon SPEC GRAVITY 1.025 Normal 1.005-<=1.025 [facility] Comment on above: Performed By: #### U AMIC #### [facility] [address] [place] [address] Dr. Homero Damon UA PROTEIN Negative Normal NEGATIVE/ TRACE [facility] Comment on above: Performed By: #### U AMIC #### [facility] [address] [place] [address] Dr. Homero Damon Urobilinogen Qn (U) 0.2 {Saad'U}/dL Normal 0.2 - 1. 0 [facility] Comment on above: Performed By: #### U AMIC #### [facility] [address] [place] [address] Dr. Homero Damon WBC 5-10 Abnormal NONE SEEN [facility] Comment on above: Performed By: #### U AMIC #### [facility] [address] [place] [address] Dr. Homero Damon GLUCOSE - 1HRon 12-12-2021 Glucose [Mass/Vol] 128 mg/dL Critically high 74-106 T [facility] Comment on above: Performed By: #### G LU1HR #### [facility] [address] [place] [address] Dr. Homero Damon HEMOGRAM AND PLATELon 2021 Hematocrit (Bld) [Volume fraction] 38.8 % Normal 36.0-48.0 [facility] Comment on above: Performed By: #### H H #### [facility] [address] [place] [address] Dr. Homero Damon Hemoglobin (Bld) [Mass/Vol] 12.3 g/dL Normal 12.0-16.0 [facility] Comment on above: Performed By: #### H H #### [facility] [address] [place] [address] Dr. Homero Damon MCH (RBC) [Entitic mass] 25.8 pg Critically low 26.7-34.0 [facility] Comment on above: Performed By: #### H H #### [facility] [address] [place] [address] Dr. Homero Damon MCHC (RBC) [Mass/Vol] 31.7 g/dL Normal 29.9-35.2 [facility] Comment on above: Performed By: #### H H #### [facility] [address] [place] [address] Dr. Homero Damon MCV (RBC) [Entitic vol] 81.3 fL Normal 81.0-99.0 [facility] Comment on above: Performed By: #### H H #### [facility] [address] [place] [address] Dr. Homero Damon PLT 304 103/ul Normal 150-450 [facility] Comment on above: Performed By: #### H H #### [facility] [address] [place] [address] Dr. Homero Damon RBC 4.77 106/ul Normal 4.20-5.40 [facility] Comment on above: Performed By: #### H H #### [facility] [address] [place] [address] Dr. Homero Damon WBC 9.9 103/ul Normal 4.0-11.0 [facility] Comment on above: Performed By: #### H H #### [facility] [address] [place] [address] Dr. Homero Damon CULTURE URINEon 12-06-2021 CULTURE [...] F Trimethoprim/Sulfame thoxazole <=20 S F Normal [facility] Comment on above: Performed By: #### [facility] #### [facility] [address] [place] [address] Dr. Homero Damon Vital Signs Date Time Vital Sign Value Performing Clinician Soreni justice 09-03-2023 10:39-0500 Body height 160 cm Marielena Hernandez MD Work Phone: [facility] 09-03-2023 10:39-0500 Body mass index (BMI) [Ratio] 41.45 kg/m2 Marielena Hernandez MD Work Phone: [facility] 09-03-2023 10:39-0500 Body weight 106.14 kg Marielena Hernandez MD Work Phone: [facility] 09-03-2023 10:39-0500 Diastolic blood pressure 88 mm[Hg] Marielena Hernandez MD Work Phone: [facility] 09-03-2023 10:39-0500 Heart rate 98 /min Marielena Hernandez MD Work Phone: [facility] 09-03-2023 10:39-0500 Systolic blood pressure 123 mm[Hg] Marielena Hernandez MD Work Phone: [facility] 08-21-2023 10:31-0500 Body mass index (BMI) [Ratio] 43.48 kg/m2 Trisha CASTELLANOS Work Phone: [facility] 08-21-2023 10:31-0500 Body weight 104.38 kg Trisha CASTELLANOS Work Phone: [facility] 08-21-2023 10:31-0500 Diastolic blood pressure 60 mm[Hg] Trisha CASTELLANOS Work Phone: [facility] 08-21-2023 10:31-0500 Systolic blood pressure 118 mm[Hg] Trisha CASTELLANOS Work Phone: [facility] Healthcare Encounters Encounter Date Encounter Type Care Provider Facility Start: 11-27-2023 End: 11-27-2023 ambulatory LEA DANO Not Available Start: 11-13-2023 End: 11-13-2023 ambulatory TRISHA BRYON Not Available Start: 10-30-2023 End: 10-30-2023 ambulatory LEA DANO Not Available Start: 10-15-2023 End: 10-15-2023 ambulatory TRISHA SLATER Not Available Start: 09-17-2023 End: 09-17-2023 ambulatory LEA DANO Not Available Start: 09-03-2023 End: 09-03[facility] Start: 09-03-2023 End: 09-03-2023 Office outpatient visit 10 minutes Marielena Hernandez MD Work Phone: [facility] [place] Comment on above: 22 weeks gestation o f (Primary Dx); Severe obesity with alveolar hypoventilation affecting , antepartum ([facility]) Start: 08-21-2023 End: 08-21-2023 ambulatory TRISHA SLATER Not Available Start: 08-21-2023 End: 08-21-2023 Office outpatient visit 15 minutes Trisha CASTELLANOS Work Phone: [facility] Comment on above: Second trimester pre gnancy; Diabetes mellitus screening Start: 08-20-2023 Chart abstracting Marielena Hernandez MD Work Phone: [facility] Start: 07-23-2023 End: 07-23-2023 ambulatory LEA [...] Td Vaccines (8 - Td or Tdap) [facility] Start: 09-17-2023 End: 09-17-2023 Patient encounter procedure 09/17/2023 10:50 AM EST Routine [facility] [address] [address] Lea Cole, [address] [place] [address] [facility] Start: 09-03-2023 End: 09-03-2023 Patient encounter procedure [facility] Start: 08-21-2023 End: 08-21-2024 CBC panel - Blood by Automated count CBC Lab Routine Diabetes mellitus screening Expected: 08/21/2023 (Approximate), Expires: 08/21/2024 [facility] Work Phone: Comment on above: Expected: 08/21/2023 (Approximate), Expires: 08/21/2024 Start: 08-21-2023 End: 08-21-2024 Measurement of glucose 1 hour after glucose challenge for glucose tolerance test Glucose tolerance, 1 hour Lab Routine Diabetes mellitus screening Expected: 08/21/2023 (Approximate), Expires: 08/21/2024 [facility] Comment on above: Expected: 08/21/2023 (Approximate), Expires: 08/21/2024 Start: 03-14-2023 Influenza vaccination Influenza Vacc ine [facility] Start: 2021 Screening for malign ant neoplasm of cervix Pap Smear [facility] Start: 2019 DTaP,Tdap and Td Vaccines (1 - Tdap) DTaP,Tdap and Td Vaccines (1 - Tdap) [facility] Start: 2018 Adult BMI Follow Up Plan Adult BMI Follow Up Plan [facility] Start: 2018 Adult BMI Screening Adult BMI Screen ing [facility] Start: 2012 Depression Screening Depression Scre ening [facility] Start: 2012 Tobacco Screening Tobacco Screening [facility] Immunizations Immunization Date Immunization Notes Care Provider [place] 06-03-2013 influenza virus vaccine, unspecified formulation Marielena Hernandez MD Work Phone: [facility] Payers Date Payer Category Payer Medicaid [id number] 2022 Medicaid [id number] 2022 Medicaid [id number] 2000 Unknown [id number] 2.16.84 [id number] 2000 Unknown [id number] 2.16.84 0.1.910005.3.579.2.593 2000 Unknown [id number] 2.16.84 0.1.710531.3.579.2.593 2000 Unknown [id number] 2.16.84 0.1.664449.3.579.2.593 2000 Unknown [id number] 2.16.84 0.1.730316.3.579.2.593 2000 Unknown [id number] 2.16.84 0.1.544138.3.579.2.593 2000 Unknown [id number] 2.16.84 0.1.785154.3.579.2.593 2000 Unknown [id number] 2.16.8 40.1.721285.3.579.2.1286 2000 Unknown [id number] 2.16.8 40.1.503916.3.579.2.1286 2000 Unknown [id number] 2.16.84 0.1.521624.3.579.2.1259 2000 Unknown [id number] 2.16.84 0.1.942376.3.579.2.1259 2000 Unknown [id number] 2.16.84 0.1.980144.3.579.2.1259 2000 Unknown [id number] 2.16.84 0.1.049634.3.579.2.1259 2000 Unknown [id number] 2.16.84 0.1.214789.3.579.2.1259 2000 Unknown [id number] 2.16.84 0.1.088458.3.579.2.1259 2000 Unknown [id number] 2.16.84 0.1.737914.3.579.2.1259 2000 Unknown [id number] 2.16.840 .1.099844.3.579.2.1259 1959 Unknown [id number] Social History Date Type Detail Facility Start: 04-08-2017 End: 09-03-2023 Tobacco smoking status NHIS Never smoked tobacco [facility] Start: 04-08-2017 End: 09-03-2023 Tobacco use and exposure Smokeless tobacco non-user [facility] Start: 08-20-2023 End: 09-03-2023 Alcohol intake Current non-drinker of alcohol (finding) [facility] Start: 08-24-2020 End: 08-20-2023 History of Social function [facility] Start: 08-24-2020 End: 08-20-2023 Tobacco use panel [facility] [employer] [facility] Unknown [facility] Start: 04-14-2023 [facility] Start: 2000 Sex Assigned At Not on file P [facility] Start: 06-13-2023 Gender identity Identifies as [...] Yes Have you been seen here at [facility] in a previous ? No Recent ER visits or hospitalizations? No Bring blood sugar log or meter with you today? (Please bring them with you for every visit at [facility]) N/A Traveled outside the country in [...] TESTS AND ULTRASOUND REPORTS: Referral records and epic chart were reviewed Pertinent Ultrasound findings are [...] patient is in complete care of her food services manager. Patient does have ultrasound and office visit [...] Referring and communicating with other health care connector (not separately reported) Documenting clinical information in the electronic or other health record Marielena Hernandez MD [place] [address] [facility], the CDC, and other organizations representing maternal and public health professionals recommend that , , and lactating people and those considering receive the COVID-19 vaccination. Vaccination is the best method to reduce maternal and complications of SARS-CoV-2 infection. This document was created with [employer] technology. Though I make every effort to review the dictation as it is transcribed, on occasion the spoken word can be misinterpreted by the technology leading to inappropriate words, phrases, or sentences. This note is addressed to the requesting provider as a consultation for clinical guidance. Specific medical abbreviations are occasionally used and those are generally approved by the [place]?Board of?Obstetrics and?Gynecology?as well as?Terrance grimm abbreviations. The above plan of care was based solely on the diagnoses for which a consultation was requested. ?More frequent testing may be indicated based on her other medical/obstetrical conditions. The management of other or medical conditions is beyond the scope of requested consultation and will continue to be followed by the primary food services manager or primary care provider. Note to patient: [...] of the practitioner. documented in this encounter [facility] History of Present illness Narrative 08-21-2023 EMANUEL [...] content) DATE CREATED AUTHOR 11/20/2022 [facility] DATE CREATED AUTHOR 'S ORGANIZ ATION 09/10/2023 [facility] DATE CREATED AUTHOR AUTHOR'S LORENZO BALDWIN 11/29/2023 [facility] EPIC Reason for Visit (unrecogniz [...] BE BASED ON THE PRIMARY CLINICAL RECORDS. [facility] [employer] provides no warranty or guarantee of the accuracy or completeness of information in this document.
[2023-12-03 20:10] VITALS: BP 131/77; PULSE 103
--- NOTE | 2023-12-03 20:43 | US_ITS ---
[address] [address] Patient Name: JULIANA MICHELE MRN: [id number] date: 2000 Sex: F Assigned Patient Location: [facility] Current Patient Location: Accession/Order Number: [id number] Exam Date: 12/03/2023 20:43 Report Date: 12/04/2023 07:11 At the request of: LEA MATSON Procedure: US OB BPP w non-stress EXAMINATION: US OB BPP w non-stress HISTORY: GDM COMPARISON: No relevant comparison available. TECHNIQUE: Ultrasound biophysical profile was performed in the radiology department. non-reactive stress testing was performed by nursing staff in the birthing center. FINDINGS: BREATHING MOVEMENTS: 2.0 GROSS BODY MOVEMENTS: 2.0 TONE: 2.0 QUALITATIVE AMNIOTIC FLUID VOLUME: 2.0 PRESENTATION: CEPHALIC HEART RATE: 145.9 bpm H.B./min AMNIOTIC FLUID VOLUME: 15.0 cm cm GESTATIONAL AGE: 35 weeks 2 days CONCLUSION: Total biophysical profile score: 8.0 Electronically authenticated by: BETTYE MICHELLE Date: 12/04/2023 07:11
== END 2023-12-03 21:30 | disposition home or self-care (01) ==
LOC: US 08:06 → FBC 20:04
PROVIDERS: PCP Nurse Practitioner Primary Care; Visit Provider Obstetrics & Gynecology
DX: O36.63X0 Maternal care for excessive fetal growth, third trimester, not applicable or unspecified (principal); Z3A.35 35 weeks gestation of pregnancy
CPT/HCPCS: 76818

== ENCOUNTER 2023-12-06 04:17 | Outpatient (OUT) | payer MEDICAID, SELFPAY ==
--- OUTSIDE RECORDS SUMMARY | 2023-12-06 04:20 | XMS_ITS | CCD ---
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 Name Role Phone PAULO ., DR [...] UA Negative Negative - 4(70) +++ mg/dL [facility] Blood, UA Negative Negative - 50 Francis/mcL [facility] Clarity, UA Clear [facility] Color, UA Yellow [facility] Glucose, UA Negative Negative - 1999(110) ++++ mg/dL [facility] Interpretation and review of laboratory results Abnormal [facility] Ketones, UA Negative Negative - 160(16) ++++ mg/dL [facility] Leukocytes, UA Negative Negative - 500+++ Shravan/mcL [facility] Nitrite, UA Negative Negative - Positive [facility] pH, UA 6.0 5 - 9 [facility] Protein, UA Trace Negative - 1999(20) ++++ mg/dL [facility] Spec Grav, UA 1.030 1 - 1.03 [facility] Urobilinogen, UA 0.2 0.2 - 12 mg/dL [facility] AFP Single Marker ScrnRalph rnal, Serumon 07-26-2023 Ms Alpha-Fetoprotein Negative [facility] Free Cell DNAon 2022 Free Cell Dna LOW RISK [facility] CBC without diffon Hematocrit (Bld) [Volume fraction] 38.7 % [facility] Hemoglobin (Bld) [Mass/Vol] 12.0 g/dL [facility] Platelets (Bld) [#/Vol] 365 10*3/uL [facility] HIV 1&2 AB/AG Screen (P24 AG )on 06-20-2023 HIV 1&2 AB/AG Non-Reactive [facility] Hepatitis B surface antigeno n 06-20-2023 Hepatitis B Surface Antigen Negative [facility] Hepatitis C(HCV) Ab w/ Refle x to PCRon 06-20-2023 HCV Ab Ql (S) Non-Reactive [facility] No Panel InformationOrdered By: Nicky Miles on 06-20-2023 [facility] Rubella IGG immune statuson 06-20-2023 Rubella immune IgG 2.23 IMMUNE [facility] Syphilis Total(Unknown Syphi lis Status)Ordered By: Nicky Miles on 06-20-2023 Syphilis Non-Reactive [facility] TSHon 06-20-2023 Thyroid Stimulating (3Rd Generation) Hormone/ Tsh 0.708 [facility] PAP ACOG PANEL 2: 21 to on 11-20-2022 . . Normal [facility] Comment on above: Performed By: #### [id number] #### [facility] [address] [place] [address] Dr. Homero Damon Age Gdln ACOG Testing - [facility] Comment on above: Performed By: #### [id number] #### [facility] [address] [place] [address] Dr. Homero Damon DIAGNOSIS: Comment [facility] Comment on above: Result Comment: NEGA TIVE FOR INTRAEPITHELIAL LESION OR MALIGNANCY. Performed By: #### [id number] #### [facility] [address] [place] [address] Dr. Homero Damon Methodology: Comment Normal [facility] Comment on above: Result Comment: This liquid based ThinPrep(R) pap test was screened with the use of an image guided system. Performed By: #### [id number] #### [facility] [address] [place] [address] Dr. Homero Damon Note: Comment Normal [facility] Comment on above: Result Comment: The Pap smear is a screening test designed to aid in the detection of premalignant and malignant conditions of the uterine cervix. It is not a diagnostic procedure and should not be used as the sole means of detecting cervical cancer. Both false-positive and false-negative reports do occur. . Performed By: #### [id number] #### [facility] [address] [place] [address] Dr. Homero Damon Performed by: Comment Normal [facility] Comment on above: Result Comment: Haris Alexis, Pattern Weaver (ASCP) Performed By: #### [id number] #### [facility] [address] [place] [address] Dr. Homero Damon Reflex Criteria: Comment Normal [facility] Comment on above: Result Comment: The HPV DNA reflex criteria were not met with this specimen result therefore, no HPV testing was performed. . Performed By: #### [id number] #### [facility] [address] [place] [address] Dr. Homero Damon Specimen adequacy: Comment Normal [facility] Comment on above: Result Comment: Sati sfactory for evaluation. Endocervical and/or squamous metaplastic cells (endocervical component) are present. Performed By: #### [id number] #### [facility] [address] [place] [address] Dr. Homero Damon CANNABINOID (THC) CONFIRMATI ON, URINEon 03-19-2022 Cannabinoid Positive Abnormal [facility] Comment on above: Performed By: #### T HCCONF #### [facility] [address] [address] [address] Homero Damon Carboxy THC GC/MS Conf 47 ng/mL Normal Cutoff=10 Th e [facility] Comment on above: Performed By: #### T HCCONF #### [facility] [address] [place] [address] Dr. Homero Damon CBC AUTO DIFFon 03-15-2022 BASO # 0.0 103/ul Normal 0.0-0.1 [facility] Comment on above: Performed By: #### C BC #### [facility] [address] [place] [address] Dr. Homero Damon Basophils/100 WBC (Bld) 0.2 % Normal 0.2-2.0 [facility] Comment on above: Performed By: #### C BC #### [facility] [address] [place] [address] Dr. Homero Damon EO # 0.2 103/ul Normal 0.0-0.7 [facility] Comment on above: Performed By: #### C BC #### [facility] [address] [place] [address] Dr. Homero Damon Eosinophils/100 WBC (Bld) 1.5 % Normal 0.9-7.0 [facility] Comment on above: Performed By: #### C BC #### [facility] [address] [place] [address] Dr. Homero Damon Erythrocyte distribution width (RBC) [Ratio] 16.1 % Critically high 11.0-15.0 [facility] Comment on above: Performed By: #### C BC #### [facility] [address] [place] [address] Dr. Homero Damon Hematocrit (Bld) [Volume fraction] 32.7 % Critically low 36.0-48.0 [facility] Comment on above: Performed By: #### C BC #### [facility] [address] [place] [address] Dr. Homero Damon Hemoglobin (Bld) [Mass/Vol] 9.7 g/dL Critically low 12.0-16.0 [facility] Comment on above: Performed By: #### C BC #### [facility] [address] [place] [address] Dr. Homero Damon IG # 0.04 10e3/ul Critically high 0.00-0.03 [facility] Comment on above: Performed By: #### C BC #### [facility] [address] [place] [address] Dr. Homero Damon IG % 0.4 % Normal 0.0-0.5 [facility] Comment on above: Performed By: #### C BC #### [facility] [address] [place] [address] Dr. Homero Damon LYMPH # 3.5 103/ul Normal 1.2-3.8 [facility] Comment on above: Performed By: #### C BC #### [facility] [address] [place] [address] Dr. Homero Damon Lymphocytes/100 WBC (Bld) 32.9 % Normal 20.5-60.0 [facility] Comment on above: Performed By: #### C BC #### [facility] [address] [place] [address] Dr. Homero Damon MANUAL DIFF REQ NO Normal [facility] Comment on above: Performed By: #### C BC #### [facility] [address] [place] [address] Dr. Homero Damon MCH (RBC) [Entitic mass] 23.0 pg Critically low 26.7-34.0 [facility] Comment on above: Performed By: #### C BC #### [facility] [address] [place] [address] Dr. Homero Damon MCHC (RBC) [Mass/Vol] 29.7 g/dL Critically low 29.9-35.2 [facility] Comment on above: Performed By: #### C BC #### [facility] [address] [place] [address] Dr. Homero Damon MCV (RBC) [Entitic vol] 77.7 fL Critically low 81.0-99.0 [facility] Comment on above: Performed By: #### C BC #### [facility] [address] [place] [address] Dr. Homero Damon MONO # 0.8 103/ul Normal 0.3-0.8 [facility] Comment on above: Performed By: #### C BC #### [facility] [address] [place] [address] Dr. Homero Damon Monocytes/100 WBC (Bld) 7.1 % Normal 1.7-12.0 [facility] Comment on above: Performed By: #### C BC #### [facility] [address] [place] [address] Dr. Homero Damon NEUT # 6.1 103/ul Normal 1.4-6.5 [facility] Comment on above: Performed By: #### C BC #### [facility] [address] [place] [address] Dr. Homero Damon Neutrophils/100 WBC (Bld) 57.9 % Normal 43.0-75.0 [facility] Comment on above: Performed By: #### C BC #### [facility] [address] [place] [address] Dr. Homero Damon Platelet mean volume (Bld) [Entitic vol] 11.0 fL Normal 9.5-13.5 [facility] Comment on above: Performed By: #### C BC #### [facility] [address] [place] [address] Dr. Homero Damon PLT 253 103/ul Normal 150-450 [facility] Comment on above: Performed By: #### C BC #### [facility] [address] [place] [address] Dr. Homero Damon RBC 4.21 106/ul Normal 4.20-5.40 [facility] Comment on above: Performed By: #### C BC #### [facility] [address] [place] [address] Dr. Homero Damon WBC 10.6 103/ul Normal 4.0-11.0 [facility] Comment on above: Performed By: #### C BC #### [facility] [address] [place] [address] Dr. Homero Damon CBC AUTO DIFFon 03-13-2022 BASO # 0.0 103/ul Normal 0.0-0.1 [facility] Comment on above: Performed By: #### T HCCONF #### [facility] [address] [place] [address] Dr. Homero Damon Basophils/100 WBC (Bld) 0.3 % Normal 0.2-2.0 [facility] Comment on above: Performed By: #### T HCCONF #### [facility] [address] [place] [address] Dr. Hmoero Damon EO # 0.0 103/ul Normal 0.0-0.7 [facility] Comment on above: Performed By: #### T HCCONF #### [facility] [address] [place] [address] Dr. Homero Damon Eosinophils/100 WBC (Bld) 0.2 % Critically low 0.9-7.0 [facility] Comment on above: Performed By: #### T HCCONF #### [facility] [address] [place] [address] Dr. Homero Damon Erythrocyte distribution width (RBC) [Ratio] 16.0 % Critically high 11.0-15.0 [facility] Comment on above: Performed By: #### T HCCONF #### [facility] [address] [place] [address] Dr. Homero Damon Hematocrit (Bld) [Volume fraction] 35.3 % Critically low 36.0-48.0 [facility] Comment on above: Performed By: #### T HCCONF #### [facility] [address] [place] [address] Dr. Homero Damon Hemoglobin (Bld) [Mass/Vol] 11.0 g/dL Critically low 12.0-16.0 [facility] Comment on above: Performed By: #### T HCCONF #### [facility] [address] [place] [address] Dr. Homero Damon IG # 0.04 10e3/ul Critically high 0.00-0.03 [facility] Comment on above: Performed By: #### T HCCONF #### [facility] [address] [address] [address] Homero Damon IG % 0.4 % Normal 0.0-0.5 [facility] Comment on above: Performed By: #### T HCCONF #### [facility] [address] [address] [address] Homero Damon LYMPH # 2.5 103/ul Normal 1.2-3.8 [facility] Comment on above: Performed By: #### T HCCONF #### [facility] [address] [place] [address] Dr. Homero Damon Lymphocytes/100 WBC (Bld) 26.4 % Normal 20.5-60.0 [facility] Comment on above: Performed By: #### T HCCONF #### [facility] [address] [place] [address] Dr. Homero Damon MANUAL DIFF REQ NO Normal [facility] Comment on above: Performed By: #### T HCCONF #### [facility] [address] [place] [address] Dr. Homero Damon MCH (RBC) [Entitic mass] 23.5 pg Critically low 26.7-34.0 [facility] Comment on above: Performed By: #### T HCCONF #### [facility] [address] [place] [address] Dr. Homero Damon MCHC (RBC) [Mass/Vol] 31.2 g/dL Normal 29.9-35.2 [facility] Comment on above: Performed By: #### T HCCONF #### [facility] [address] [place] [address] Dr. Homero Damon MCV (RBC) [Entitic vol] 75.4 fL Critically low 81.0-99.0 [facility] Comment on above: Performed By: #### T HCCONF #### [facility] [address] [place] [address] Dr. Homero Damon MONO # 0.6 103/ul Normal 0.3-0.8 [facility] Comment on above: Performed By: #### T HCCONF #### [facility] [address] [place] [address] Dr. Homero Damon Monocytes/100 WBC (Bld) 6.4 % Normal 1.7-12.0 [facility] Comment on above: Performed By: #### T HCCONF #### [facility] [address] [place] [address] Dr. Homero Dmaon NEUT # 6.4 103/ul Normal 1.4-6.5 [facility] Comment on above: Performed By: #### T HCCONF #### [facility] [address] [place] [address] Dr. Homero Damon Neutrophils/100 WBC (Bld) 66.3 % Normal 43.0-75.0 [facility] Comment on above: Performed By: #### T HCCONF #### [facility] [address] [place] [address] Dr. Homero Damon Platelet mean volume (Bld) [Entitic vol] 11.0 fL Normal 9.5-13.5 [facility] Comment on above: Performed By: #### T HCCONF #### [facility] [address] [place] [address] Dr. Homero Damon PLT 312 103/ul Normal 150-450 [facility] Comment on above: Performed By: #### T HCCONF #### [facility] [address] [place] [address] Dr. Homero Damon RBC 4.68 106/ul Normal 4.20-5.40 [facility] Comment on above: Performed By: #### T HCCONF #### [facility] [address] [place] [address] Dr. Homero Damon WBC 9.6 103/ul Normal 4.0-11.0 [facility] Comment on above: Performed By: #### T HCCONF #### [facility] [address] [place] [address] Dr. Homero Damon [facility] SARS-CoV-2 (COVID-19) RNA LORRAINE+probe Ql (Unsp spec) Not detected Normal NOT DETECTED [facility] Comment on above: Result Comment: [...] for this test is supported by the [employer] and Human Service's declaration that [...] used). Performed By: #### C VDTBH #### [facility] [address] [place] [address] Dr. Homero Damon DRUG SCREEN RAPID (URINE)on 03-13-2022 AMP Negative Normal NEGATIVE [facility] Comment on above: Performed By: #### D RUGRPD #### [facility] [address] [place] [address] Dr. Homero Damon BAR Negative Normal NEGATIVE [facility] Comment on above: Performed By: #### D RUGRPD #### [facility] [address] [place] [address] Dr. Homero Damon BUP Negative Normal NEGATIVE [facility] Comment on above: Performed By: #### D RUGRPD #### [facility] [address] [place] [address] Dr. Homero Damon BZO Negative Normal NEGATIVE [facility] Comment on above: Performed By: #### D RUGRPD #### [facility] [address] [place] [address] Dr. Homero Damon MADHURI Negative Normal NEGATIVE [facility] Comment on above: Performed By: #### D RUGRPD #### [facility] [address] [place] [address] Dr. Homero Damon CUT-OFFS SEE BELOW Normal [facility] Comment on above: Result Comment: AMP [...] ng/mL Performed By: #### D RUGRPD #### [facility] [address] [place] [address] Dr. Homero Damon DRUG CUT HEADER DRUG CLASS TEST SYSTEM CUT-OFF CONCENTRATIONS ARE FOLLOWS: Normal [facility] Comment on above: Performed By: #### D RUGRPD #### [facility] [address] [place] [address] Dr. Homero Damon mAMP Negative Normal NEGATIVE [facility] Comment on above: Performed By: #### D RUGRPD #### [facility] [address] [place] [address] Dr. Homero Damon MTD Negative Normal NEGATIVE [facility] Comment on above: Performed By: #### D RUGRPD #### [facility] [address] [address] [address] Homero Damon OPI Negative Normal NEGATIVE [facility] Comment on above: Performed By: #### D RUGRPD #### [facility] [address] [address] [address] Homero Damon OXY Negative Normal NEGATIVE [facility] Comment on above: Performed By: #### D RUGRPD #### [facility] [address] [place] [address] Dr. Homero Damon PCP Negative Normal NEGATIVE [facility] Comment on above: Performed By: #### D RUGRPD #### [facility] [address] [place] [address] Dr. Homero Damon PPX Negative Normal NEGATIVE [facility] Comment on above: Performed By: #### D RUGRPD #### [facility] [address] [place] [address] Dr. Homero Damon TCA Negative Normal NEGATIVE [facility] Comment on above: Performed By: #### D RUGRPD #### [facility] [address] [place] [address] Dr. Homero Damon THC Positive Abnormal NEGATIVE [facility] Comment on above: Performed By: #### D RUGRPD #### [facility] [address] [place] [address] Dr. Homero Damon TYPE AND SCREENon 03-13-2022 TYPE AND SCREEN Negative Normal [facility] Comment on above: Performed By: #### T HCCONF #### [facility] [address] [place] [address] Dr. Homero Damon UA (CLEAN/CATCH) CEMETERY WARDEN/MICRO I F IND.on 03-10-2022 Bilirubin Ql (U) Negative Normal NEGATIVE [facility] Comment on above: Performed By: #### U ACSIND #### [facility] [address] [place] [address] Dr. Homero Damon Clarity (U) CLEAR Normal CLEAR [facility] Comment on above: Performed By: #### U ACSIND #### [facility] [address] [place] [address] Dr. Homero Damon Color (U) YELLOW Normal YELLOW [facility] Comment on above: Performed By: #### U ACSIND #### [facility] [address] [place] [address] Dr. Homero Damon Glucose Ql (U) Negative Normal NEGATIVE [facility] Comment on above: Performed By: #### U ACSIND #### [facility] [address] [place] [address] Dr. Homero Damon Hemoglobin Ql (U) Negative Normal NEGATIVE [facility] Comment on above: Performed By: #### U ACSIND #### [facility] [address] [place] [address] Dr. Homero Damon Ketones Ql (U) Negative Normal NEGATIVE [facility] Comment on above: Performed By: #### U ACSIND #### [facility] [address] [place] [address] Dr. Homero Damon LEUKOCYTES Negative Normal NEGATIVE [facility] Comment on above: Performed By: #### U ACSIND #### [facility] [address] [address] [address] Homero Damon Nitrite Ql (U) Negative Normal NEGATIVE [facility] Comment on above: Performed By: #### U ACSIND #### [facility] [address] [place] [address] Dr. Homero Damon pH (U) 6.0 [pH] Normal 5-9 [facility] Comment on above: Performed By: #### U ACSIND #### [facility] [address] [place] [address] Dr. Homero Damon SPEC GRAVITY 1.025 Normal 1.005-<=1.025 [facility] Comment on above: Performed By: #### U ACSIND #### [facility] [address] [place] [address] Dr. Homero Damon UA PROTEIN Negative Normal NEGATIVE/ TRACE [facility] Comment on above: Performed By: #### U ACSIND #### [facility] [address] [place] [address] Dr. Homero Damon UR MICRO IND NOT INDICATED Normal [facility] Comment on above: Performed By: #### U ACSIND #### [facility] [address] [place] [address] Dr. Homero Damon Urobilinogen Qn (U) 1.0 {Saad'U}/dL Normal 0.2 - 1. 0 [facility] Comment on above: Performed By: #### U ACSIND #### [facility] [address] [place] [address] Dr. Homero Damon GROUP B STREP CULTUREon 02-11 S. agalactiae Ag Ql (Unsp spec) Culture Observations: Called Group B Strep to Millie Armando, Registration Scheduling Specialist on 02/25 @ 0917 Isolate 1 Streptococcus agalactiae Moderate growth of ORGANISM 1 Streptococcus agalactiae ANTIBIOTIC M.I.C RX STATUS Benzylpenicillin <=0.06 S F Ampicillin <=0.25 S F Cefotaxime <=0.12 S F Ceftriaxone <=0.12 S F Levofloxacin 0.5 S F Erythromycin >=8 R F Clindamycin >=1 R F Linezolid <=2 S F Vancomycin 0.5 S F Tetracycline >=16 R F Normal [facility] Comment on above: Performed By: #### T HCCONF #### [facility] [address] [place] [address] Dr. Homero Damon CULTURE URINEon 02-23-2022 CULTURE [...] Trimethoprim/Sulfame thoxazole <=20 S F Normal [facility] Comment on above: Performed By: #### U RCX #### [facility] [address] [place] [address] Dr. Homero Damon UA RANDOM W/MICROSCOPICon BACTERIA LARGE Abnormal NONE SEEN [facility] Comment on above: Performed By: #### U AMIC #### [facility] [address] [place] [address] Dr. Homero Damon Bilirubin Ql (U) Negative Normal NEGATIVE The [facility] Comment on above: Performed By: #### U AMIC #### [facility] [address] [place] [address] Dr. Homero Damon CAST NONE SEEN Normal NONE SEEN [facility] Comment on above: Performed By: #### U AMIC #### [facility] [address] [address] [address] Homero Damon Clarity (U) CLEAR Normal CLEAR [facility] Comment on above: Performed By: #### U AMIC #### [facility] [address] [address] [address] Homero Damon Color (U) LT. YELLOW Normal YELLOW [facility] Comment on above: Performed By: #### U AMIC #### [facility] [address] [address] [address] Homero Damon Crystals LM Nom (Urine sed) NONE SEEN Normal NONE SEEN [facility] Comment on above: Performed By: #### U AMIC #### [facility] [address] [place] [address] Dr. Homero Damon Epithelial cells LM Ql (Urine sed) FEW Abnormal NONE SEEN /RARE [facility] Comment on above: Performed By: #### U AMIC #### [facility] [address] [place] [address] Dr. Homero Damon Glucose Ql (U) Negative Normal NEGATIVE The [facility] Comment on above: Performed By: #### U AMIC #### [facility] [address] [place] [address] Dr. Homero Damon Hemoglobin Ql (U) Negative Normal NEGATIVE The [facility] Comment on above: Performed By: #### U AMIC #### [facility] [address] [place] [address] Dr. Homero Damon Ketones Ql (U) TRACE Abnormal NEGATIVE [facility] Comment on above: Performed By: #### U AMIC #### [facility] [address] [place] [address] Dr. Homero Damon LEUKOCYTES TRACE Abnormal NEGATIVE [facility] Comment on above: Performed By: #### U AMIC #### [facility] [address] [place] [address] Dr. Homero Damon MUCOUS NONE SEEN Normal NONE SEEN [facility] Comment on above: Performed By: #### U AMIC #### [facility] [address] [place] [address] Dr. Homero Damon Nitrite Ql (U) Negative Normal NEGATIVE [facility] Comment on above: Performed By: #### U AMIC #### [facility] [address] [place] [address] Dr. Homero Damon pH (U) 6.0 [pH] Normal 5-9 [facility] Comment on above: Performed By: #### U AMIC #### [facility] [address] [place] [address] Dr. Homero Damon RBC NONE SEEN Abnormal 0-2 [facility] Comment on above: Performed By: #### U AMIC #### [facility] [address] [place] [address] Dr. Homero Damon SPEC GRAVITY 1.025 Normal 1.005-<=1.025 [facility] Comment on above: Performed By: #### U AMIC #### [facility] [address] [place] [address] Dr. Homero Damon UA PROTEIN Negative Normal NEGATIVE/ TRACE [facility] Comment on above: Performed By: #### U AMIC #### [facility] [address] [place] [address] Dr. Homero Damon Urobilinogen Qn (U) 0.2 {Saad'U}/dL Normal 0.2 - 1. 0 [facility] Comment on above: Performed By: #### U AMIC #### [facility] [address] [place] [address] Dr. Homero Damon WBC 5-10 Abnormal NONE SEEN [facility] Comment on above: Performed By: #### U AMIC #### [facility] [address] [place] [address] Dr. Homero Damon GLUCOSE - 1HRon 12-12-2021 Glucose [Mass/Vol] 128 mg/dL Critically high 74-106 T [facility] Comment on above: Performed By: #### G LU1HR #### [facility] [address] [place] [address] Dr. Homero Damon HEMOGRAM AND PLATELon 2021 Hematocrit (Bld) [Volume fraction] 38.8 % Normal 36.0-48.0 [facility] Comment on above: Performed By: #### H H #### [facility] [address] [place] [address] Dr. Homero Damon Hemoglobin (Bld) [Mass/Vol] 12.3 g/dL Normal 12.0-16.0 [facility] Comment on above: Performed By: #### H H #### [facility] [address] [place] [address] Dr. Homero Damon MCH (RBC) [Entitic mass] 25.8 pg Critically low 26.7-34.0 [facility] Comment on above: Performed By: #### H H #### [facility] [address] [place] [address] Dr. Homero Damon MCHC (RBC) [Mass/Vol] 31.7 g/dL Normal 29.9-35.2 [facility] Comment on above: Performed By: #### H H #### [facility] [address] [place] [address] Dr. Homero Damon MCV (RBC) [Entitic vol] 81.3 fL Normal 81.0-99.0 [facility] Comment on above: Performed By: #### H H #### [facility] [address] [place] [address] Dr. Homero Damon PLT 304 103/ul Normal 150-450 [facility] Comment on above: Performed By: #### H H #### [facility] [address] [place] [address] Dr. Homero Dmaon RBC 4.77 106/ul Normal 4.20-5.40 [facility] Comment on above: Performed By: #### H H #### [facility] [address] [place] [address] Dr. Homero Damon WBC 9.9 103/ul Normal 4.0-11.0 [facility] Comment on above: Performed By: #### H H #### [facility] [address] [place] [address] Dr. Homero Damon CULTURE URINEon 12-06-2021 CULTURE [...] F Trimethoprim/Sulfame thoxazole <=20 S F Normal [facility] Comment on above: Performed By: #### [facility] #### [facility] [address] [place] [address] Dr. Homero Damon Vital Signs Date Time Vital Sign Value Performing Clinician Soreni justice 09-03-2023 10:39-0500 Body height 160 cm Marielena Hernandez MD Work Phone: [facility] 09-03-2023 10:39-0500 Body mass index (BMI) [Ratio] 41.45 kg/m2 Marielena Hernandez MD Work Phone: [facility] 09-03-2023 10:39-0500 Body weight 106.14 kg Marielena Hernandez MD Work Phone: [facility] 09-03-2023 10:39-0500 Diastolic blood pressure 88 mm[Hg] Marielena Hernandez MD Work Phone: [facility] 09-03-2023 10:39-0500 Heart rate 98 /min Marielena Hernandez MD Work Phone: [facility] 09-03-2023 10:39-0500 Systolic blood pressure 123 mm[Hg] Marielena Hernandez MD Work Phone: [facility] 08-21-2023 10:31-0500 Body mass index (BMI) [Ratio] 43.48 kg/m2 Trisha CASTELLANOS Work Phone: [facility] 08-21-2023 10:31-0500 Body weight 104.38 kg Trisha CASTELLANOS Work Phone: [facility] 08-21-2023 10:31-0500 Diastolic blood pressure 60 mm[Hg] Trisha CASTELLANOS Work Phone: [facility] 08-21-2023 10:31-0500 Systolic blood pressure 118 mm[Hg] Trisha CASTELLANOS Work Phone: [facility] Healthcare Encounters Encounter Date Encounter Type Care Provider Facility Start: 11-27-2023 End: 11-27-2023 ambulatory LEA DANO Not Available Start: 11-13-2023 End: 11-13-2023 ambulatory TRISHA BRYON Not Available Start: 10-30-2023 End: 10-30-2023 ambulatory LEA DANO Not Available Start: 10-15-2023 End: 10-15-2023 ambulatory TRISHA SLATER Not Available Start: 09-17-2023 End: 09-17-2023 ambulatory LEA DANO Not Available Start: 09-03-2023 End: 09[facility]03[facility] Start: 09-03-2023 End: 09-03-2023 Office outpatient visit 10 minutes Marielena Hernandez MD Work Phone: [facility] [place] Comment on above: 22 weeks gestation o f (Primary Dx); Severe obesity with alveolar hypoventilation affecting , antepartum ([facility]) Start: 08-21-2023 End: 08-21-2023 ambulatory TRISHA SLATER Not Available Start: 08-21-2023 End: 08-21-2023 Office outpatient visit 15 minutes Trisha CASTELLANOS Work Phone: [facility] Comment on above: Second trimester pre gnancy; Diabetes mellitus screening Start: 08-20-2023 Chart abstracting Marielena Hernandez MD Work Phone: [facility] Start: 07-23-2023 End: 07-23-2023 ambulatory LEA [...] Td Vaccines (8 - Td or Tdap) [facility] Start: 09-17-2023 End: 09-17-2023 Patient encounter procedure 09/17/2023 10:50 AM EST Routine [facility] [address] [place] [address] Lea Cole, [address] [place] [address] [facility] Start: 09-03-2023 End: 09-03-2023 Patient encounter procedure [facility] Start: 08-21-2023 End: 08-21-2024 CBC panel - Blood by Automated count CBC Lab Routine Diabetes mellitus screening Expected: 08/21/2023 (Approximate), Expires: 08/21/2024 [facility] Healthcare Work Phone: Comment on above: Expected: 08/21/2023 (Approximate), Expires: 08/21/2024 Start: 08-21-2023 End: 08-21-2024 Measurement of glucose 1 hour after glucose challenge for glucose tolerance test Glucose tolerance, 1 hour Lab Routine Diabetes mellitus screening Expected: 08/21/2023 (Approximate), Expires: 08/21/2024 [facility] Healthcare Comment on above: Expected: 08/21/2023 (Approximate), Expires: 08/21/2024 Start: 03-14-2023 Influenza vaccination Influenza Vacc ine [facility] Start: 2021 Screening for malign ant neoplasm of cervix Pap Smear [facility] Start: 2019 DTaP,Tdap and Td Vaccines (1 - Tdap) DTaP,Tdap and Td Vaccines (1 - Tdap) [facility] Start: 2018 Adult BMI Follow Up Plan Adult BMI Follow Up Plan [facility] Start: 2018 Adult BMI Screening Adult BMI Screen ing [facility] Start: 2012 Depression Screening Depression Scre ening [facility] Start: 2012 Tobacco Screening Tobacco Screening [facility] Immunizations Immunization Date Immunization Notes Care Provider [place] 06-03-2013 influenza virus vaccine, unspecified formulation Marielena Hernandez MD Work Phone: [facility] Payers Date Payer Category Payer Medicaid [id number] 2022 Medicaid [id number] 2022 Medicaid [id number] 2000 Unknown [id number] 2.16.84 [id number] 2000 Unknown [id number] 2.16.84 0.1.024012.3.579.2.593 2000 Unknown [id number] 2.16.84 0.1.550831.3.579.2.593 2000 Unknown [id number] 2.16.84 0.1.786969.3.579.2.593 2000 Unknown [id number] 2.16.84 0.1.690210.3.579.2.593 2000 Unknown [id number] 2.16.84 0.1.817064.3.579.2.593 2000 Unknown [id number] 2.16.84 0.1.455364.3.579.2.593 2000 Unknown [id number] 2.16.8 40.1.713598.3.579.2.1286 2000 Unknown [id number] 2.16.8 40.1.225896.3.579.2.1286 2000 Unknown [id number] 2.16.84 0.1.686256.3.579.2.1259 2000 Unknown [id number] 2.16.84 0.1.426022.3.579.2.1259 2000 Unknown [id number] 2.16.84 0.1.602799.3.579.2.1259 2000 Unknown [id number] 2.16.84 0.1.205245.3.579.2.1259 2000 Unknown [id number] 2.16.84 0.1.471268.3.579.2.1259 2000 Unknown [id number] 2.16.84 0.1.866431.3.579.2.1259 2000 Unknown [id number] 2.16.84 0.1.954012.3.579.2.1259 2000 Unknown [id number] 2.16.840 .1.037079.3.579.2.1259 1959 Unknown [id number] Social History Date Type Detail Facility Start: 04-08-2017 End: 09-03-2023 Tobacco smoking status NHIS Never smoked tobacco [facility] Start: 04-08-2017 End: 09-03-2023 Tobacco use and exposure Smokeless tobacco non-user [facility] Start: 08-20-2023 End: 09-03-2023 Alcohol intake Current non-drinker of alcohol (finding) [facility] Start: 08-24-2020 End: 08-20-2023 History of Social function [facility] Start: 08-24-2020 End: 08-20-2023 Tobacco use panel [facility] Unknown [facility] Start: 04-14-2023 [facility] Start: 2000 Sex Assigned At Not on file P [facility] Start: 06-13-2023 Gender identity [...] Yes Have you been seen here at [facility] in a previous ? No Recent ER visits or hospitalizations? No Bring blood sugar log or meter with you today? (Please bring them with you for every visit at [facility]) N/A Traveled outside the country in the [...] patient is in complete care of her ticket collector. Patient does have ultrasound and office visit [...] patient/family/caregiver Referring and communicating with other health animal care provider (not separately reported) Documenting clinical information in the electronic or other health record Marielena Hernandez MD [place] [address] [facility], the CDC, and other organizations representing maternal and public health professionals recommend that , , and lactating people and those considering receive the COVID-19 vaccination. Vaccination is the best method to reduce maternal and complications of SARS-CoV-2 infection. This document was created with [employer] technology. Though I make every effort to review the dictation as it is transcribed, on occasion the spoken word can be misinterpreted by the technology leading to inappropriate words, phrases, or sentences. This note is addressed to the requesting provider as a consultation for clinical guidance. Specific medical abbreviations are occasionally used and those are generally approved by the [place]?Board of?Obstetrics and?Gynecology?as well as?Terrance grimm abbreviations. The above plan of care was based solely on the diagnoses for which a consultation was requested. ?More frequent testing may be indicated based on her other medical/obstetrical conditions. The management of other or medical conditions is beyond the scope of requested consultation and will continue to be followed by the primary ticket collector or primary care provider. Note to patient: [...] of the practitioner. documented in this encounter [employer] [facility] [employer] History of Present illness Narrative 08-21-2023 EMANUEL [...] obesity with alveolar hypoventilation affecting , antepartum ([facility]) documented in this encounter [facility] [...] DATE CREATED AUTHOR AUTHOR'S LORENZO BALDWIN 11/29/2023 [facility] EPIC Reason for Visit [...] BE BASED ON THE PRIMARY CLINICAL RECORDS. [facility] [employer] provides no warranty or guarantee of the accuracy or completeness of information in this document.
[2023-12-06 12:17] VITALS: BP 137/79; PULSE 121
== END 2023-12-06 12:54 | disposition home or self-care (01) ==
LOC: FBCO 04:18 → FBC 12:10
PROVIDERS: PCP Nurse Practitioner Primary Care; Visit Provider Obstetrics & Gynecology
DX: O40.3XX0 Polyhydramnios, third trimester, not applicable or unspecified (principal)
CPT/HCPCS: 59025

== ENCOUNTER 2023-12-10 07:25 | Outpatient (OUT) | payer MEDICAID, SELFPAY ==
--- OUTSIDE RECORDS SUMMARY | 2023-12-10 07:49 | XMS_ITS | CCD ---
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 Name Role Phone PAULO ., DR GRIGGS [...] GRIGGS Admitting Unavailabl e KARASIK ., DR GIRGGS Admitting Unavailabl e KARASIK ., DR GRIGGS [...] HERNANDEZ Attending Unavailable LEA COLE Attending Unavailable BRYON TRISHA Attending Unavailable DANO, LEA Attending Unavailable BRYON, TRISHA Attending Unavailable DANO, LEA Attending Unavailable BRYON, TRISHA Attending Unavailable DANO, LEA Attending Unavailable BRYON, TRISHA Attending Unavailable Medications Current Medications Medication Drug [...] UA Negative Negative - 4(70) +++ mg/dL [facility] Blood, UA Negative Negative - 50 Francis/mcL [facility] Clarity, UA Clear [facility] Color, UA Yellow [facility] Glucose, UA Negative Negative - 1999(110) ++++ mg/dL [facility] Interpretation and review of laboratory results Abnormal [facility] Ketones, UA Negative Negative - 160(16) ++++ mg/dL [facility] Leukocytes, UA Negative Negative - 500+++ Shravan/mcL [facility] Nitrite, UA Negative Negative - Positive [facility] pH, UA 6.0 5 - 9 [facility] Protein, UA Trace Negative - 1999(20) ++++ mg/dL [facility] Spec Grav, UA 1.030 1 - 1.03 [facility] Urobilinogen, UA 0.2 0.2 - 12 mg/dL [facility] AFP Single Marker ScrnRalph rnal, Serumon 07-26-2023 Ms Alpha-Fetoprotein Negative [facility] Free Cell DNAon 2022 Free Cell Dna LOW RISK [facility] CBC without diffon Hematocrit (Bld) [Volume fraction] 38.7 % [facility] Hemoglobin (Bld) [Mass/Vol] 12.0 g/dL [facility] Platelets (Bld) [#/Vol] 365 10*3/uL [facility] HIV 1&2 AB/AG Screen (P24 AG )on 06-20-2023 HIV 1&2 AB/AG Non-Reactive [facility] Hepatitis B surface antigeno n 06-20-2023 Hepatitis B Surface Antigen Negative [facility] Hepatitis C(HCV) Ab w/ Refle x to PCRon 06-20-2023 HCV Ab Ql (S) Non-Reactive [facility] No Panel InformationOrdered By: Nicky Miles on 06-20-2023 [facility] Rubella IGG immune statuson 06-20-2023 Rubella immune IgG 2.23 IMMUNE [facility] Syphilis Total(Unknown Syphi lis Status)Ordered By: Nicky Miles on 06-20-2023 Syphilis Non-Reactive [facility] TSHon 06-20-2023 Thyroid Stimulating (3Rd Generation) Hormone/ Tsh 0.708 [facility] PAP ACOG PANEL 2: 21 to 29on 11-20-2022 . . [facility] Comment on above: Performed By: #### [id number] #### [facility] [address] [place] [address] Dr. Homero Damon Age Gdln ACOG Testing 21- Normal [facility] Comment on above: Performed By: #### [id number] #### [facility] [address] [place] [address] Dr. Homero Damon DIAGNOSIS: Comment Normal [facility] Comment on above: Result Comment: NEGA TIVE FOR INTRAEPITHELIAL LESION OR MALIGNANCY. Performed By: #### [id number] #### [facility] [address] [place] [address] Dr. Homero Damon Methodology: Comment Normal [facility] Comment on above: Result Comment: This liquid based ThinPrep(R) pap test was screened with the use of an image guided system. Performed By: #### [id number] #### [facility] [address] [place] [address] Dr. Homero Damon Note: Comment Normal [facility] Comment on above: Result Comment: The Pap smear is a screening test designed to aid in the detection of premalignant and malignant conditions of the uterine cervix. It is not a diagnostic procedure and should not be used as the sole means of detecting cervical cancer. Both false-positive and false-negative reports do occur. . Performed By: #### [id number] #### [facility] [address] [place] [address] Dr. Homero Damon Performed by: Comment Normal [facility] Comment on above: Result Comment: Haris Alexis, Saddle And Side Wire Stitcher (ASCP) Performed By: #### [id number] #### [facility] [address] [place] [address] Dr. Homero Damon Reflex Criteria: Comment Normal [facility] Comment on above: Result Comment: The HPV DNA reflex criteria were not met with this specimen result therefore, no HPV testing was performed. . Performed By: #### [id number] #### [facility] [address] [place] [address] Dr. Homero Damon Specimen adequacy: Comment Normal [facility] Comment on above: Result Comment: Sati sfactory for evaluation. Endocervical and/or squamous metaplastic cells (endocervical component) are present. Performed By: #### [id number] #### [facility] [address] [place] [address] Dr. Homero Damon CANNABINOID (THC) CONFIRMATI ON, URINEon 03-19-2022 Cannabinoid Positive Abnormal [facility] Comment on above: Performed By: #### T HCCONF #### [facility] [address] [address] [address] Homero Damon Carboxy THC GC/MS Conf 47 ng/mL Normal Cutoff=10 Th e [facility] Comment on above: Performed By: #### T HCCONF #### [facility] [address] [place] [address] Dr. Homero Damon CBC AUTO DIFFon 03-15-2022 BASO # 0.0 103/ul Normal 0.0-0.1 [facility] Comment on above: Performed By: #### C BC #### [facility] [address] [place] [address] Dr. Homero Damon Basophils/100 WBC (Bld) 0.2 % Normal 0.2-2.0 [facility] Comment on above: Performed By: #### C BC #### [facility] [address] [place] [address] Dr. Homero Damon EO # 0.2 103/ul Normal 0.0-0.7 [facility] Comment on above: Performed By: #### C BC #### [facility] [address] [place] [address] Dr. Homero Damon Eosinophils/100 WBC (Bld) 1.5 % Normal 0.9-7.0 [facility] Comment on above: Performed By: #### C BC #### [facility] [address] [place] [address] Dr. Homero Daomn Erythrocyte distribution width (RBC) [Ratio] 16.1 % Critically high 11.0-15.0 [facility] Comment on above: Performed By: #### C BC #### [facility] [address] [place] [address] Dr. Homero Damon Hematocrit (Bld) [Volume fraction] 32.7 % Critically low 36.0-48.0 [facility] Comment on above: Performed By: #### C BC #### [facility] [address] [place] [address] Dr. Homero Damon Hemoglobin (Bld) [Mass/Vol] 9.7 g/dL Critically low 12.0-16.0 [facility] Comment on above: Performed By: #### C BC #### [facility] [address] [address] [address] Homero Damon IG # 0.04 10e3/ul Critically high 0.00-0.03 [facility] Comment on above: Performed By: #### C BC #### [facility] [address] [address] [address] Homero Damon IG % 0.4 % Normal 0.0-0.5 [facility] Comment on above: Performed By: #### C BC #### [facility] [address] [place] [address] Dr. Homero Damon LYMPH # 3.5 103/ul Normal 1.2-3.8 [facility] Comment on above: Performed By: #### C BC #### [facility] [address] [place] [address] Dr. Homero Damon Lymphocytes/100 WBC (Bld) 32.9 % Normal 20.5-60.0 [facility] Comment on above: Performed By: #### C BC #### [facility] [address] [place] [address] Dr. Homero Damon MANUAL DIFF REQ NO Normal [facility] Comment on above: Performed By: #### C BC #### [facility] [address] [place] [address] Dr. Homero Damon MCH (RBC) [Entitic mass] 23.0 pg Critically low 26.7-34.0 [facility] Comment on above: Performed By: #### C BC #### [facility] [address] [place] [address] Dr. Homero Damon MCHC (RBC) [Mass/Vol] 29.7 g/dL Critically low 29.9-35.2 [facility] Comment on above: Performed By: #### C BC #### [facility] [address] [place] [address] Dr. Homero Damon MCV (RBC) [Entitic vol] 77.7 fL Critically low 81.0-99.0 [facility] Comment on above: Performed By: #### C BC #### [facility] [address] [place] [address] Dr. Homero Damon MONO # 0.8 103/ul Normal 0.3-0.8 [facility] Comment on above: Performed By: #### C BC #### [facility] [address] [place] [address] Dr. Homero Damon Monocytes/100 WBC (Bld) 7.1 % Normal 1.7-12.0 [facility] Comment on above: Performed By: #### C BC #### [facility] [address] [place] [address] Dr. Homero Damon NEUT # 6.1 103/ul Normal 1.4-6.5 [facility] Comment on above: Performed By: #### C BC #### [facility] [address] [place] [address] Dr. Homero Damon Neutrophils/100 WBC (Bld) 57.9 % Normal 43.0-75.0 [facility] Comment on above: Performed By: #### C BC #### [facility] [address] [place] [address] Dr. Homero Damon Platelet mean volume (Bld) [Entitic vol] 11.0 fL Normal 9.5-13.5 [facility] Comment on above: Performed By: #### C BC #### [facility] [address] [place] [address] Dr. Homero Damon PLT 253 103/ul Normal 150-450 [facility] Comment on above: Performed By: #### C BC #### [facility] [address] [place] [address] Dr. Homero Damon RBC 4.21 106/ul Normal 4.20-5.40 [facility] Comment on above: Performed By: #### C BC #### [facility] [address] [place] [address] Dr. Homero Damon WBC 10.6 103/ul Normal 4.0-11.0 [facility] Comment on above: Performed By: #### C BC #### [facility] [address] [place] [address] Dr. Homero Damon CBC AUTO DIFFon 03-13-2022 BASO # 0.0 103/ul Normal 0.0-0.1 [facility] Comment on above: Performed By: #### T HCCONF #### [facility] [address] [address] [address] Homero Damon Basophils/100 WBC (Bld) 0.3 % Normal 0.2-2.0 [facility] Comment on above: Performed By: #### T HCCONF #### [facility] [address] [address] [address] Homero Damon EO # 0.0 103/ul Normal 0.0-0.7 [facility] Comment on above: Performed By: #### T HCCONF #### [facility] [address] [address] [address] Homero Damon Eosinophils/100 WBC (Bld) 0.2 % Critically low 0.9-7.0 [facility] Comment on above: Performed By: #### T HCCONF #### [facility] [address] [address] [address] Homero Damon Erythrocyte distribution width (RBC) [Ratio] 16.0 % Critically high 11.0-15.0 [facility] Comment on above: Performed By: #### T HCCONF #### [facility] [address] [place] [address] Dr. Homero Damon Hematocrit (Bld) [Volume fraction] 35.3 % Critically low 36.0-48.0 [facility] Comment on above: Performed By: #### T HCCONF #### [facility] [address] [address] [address] Homero Damon Hemoglobin (Bld) [Mass/Vol] 11.0 g/dL Critically low 12.0-16.0 [facility] Comment on above: Performed By: #### T HCCONF #### [facility] [address] [place] [address] Dr. Homero Damon IG # 0.04 10e3/ul Critically high 0.00-0.03 [facility] Comment on above: Performed By: #### T HCCONF #### [facility] [address] [address] [address] Homero Damon IG % 0.4 % Normal 0.0-0.5 [facility] Comment on above: Performed By: #### T HCCONF #### [facility] [address] [address] [address] Homero Damon LYMPH # 2.5 103/ul Normal 1.2-3.8 [facility] Comment on above: Performed By: #### T HCCONF #### [facility] [address] [address] [address] Homero Damon Lymphocytes/100 WBC (Bld) 26.4 % Normal 20.5-60.0 [facility] Comment on above: Performed By: #### T HCCONF #### [facility] [address] [address] [address] Homero Damon MANUAL DIFF REQ NO Normal [facility] Comment on above: Performed By: #### T HCCONF #### [facility] [address] [address] [address] Homero Damon MCH (RBC) [Entitic mass] 23.5 pg Critically low 26.7-34.0 [facility] Comment on above: Performed By: #### T HCCONF #### [facility] [address] [address] [address] Homero Damon MCHC (RBC) [Mass/Vol] 31.2 g/dL Normal 29.9-35.2 [facility] Comment on above: Performed By: #### T HCCONF #### [facility] [address] [address] [address] Homero Damon MCV (RBC) [Entitic vol] 75.4 fL Critically low 81.0-99.0 [facility] Comment on above: Performed By: #### T HCCONF #### [facility] [address] [address] [address] Homero Damon MONO # 0.6 103/ul Normal 0.3-0.8 [facility] Comment on above: Performed By: #### T HCCONF #### [facility] [address] [place] [address] Dr. Homero Damon Monocytes/100 WBC (Bld) 6.4 % Normal 1.7-12.0 [facility] Comment on above: Performed By: #### T HCCONF #### [facility] [address] [place] [address] Dr. Homero Damon NEUT # 6.4 103/ul Normal 1.4-6.5 [facility] Comment on above: Performed By: #### T HCCONF #### [facility] [address] [place] [address] Dr. Homero Damon Neutrophils/100 WBC (Bld) 66.3 % Normal 43.0-75.0 [facility] Comment on above: Performed By: #### T HCCONF #### [facility] [address] [place] [address] Dr. Homero Damon Platelet mean volume (Bld) [Entitic vol] 11.0 fL Normal 9.5-13.5 [facility] Comment on above: Performed By: #### T HCCONF #### [facility] [address] [place] [address] Dr. Homero Damon PLT 312 103/ul Normal 150-450 [facility] Comment on above: Performed By: #### T HCCONF #### [facility] [address] [place] [address] Dr. Homero Damon RBC 4.68 106/ul Normal 4.20-5.40 [facility] Comment on above: Performed By: #### T HCCONF #### [facility] [address] [place] [address] Dr. Homero Damon WBC 9.6 103/ul Normal 4.0-11.0 [facility] Comment on above: Performed By: #### T HCCONF #### [facility] [address] [place] [address] Dr. Homero Dam[facility]13 SARS-CoV-2 (COVID-19) RNA LORRAINE+probe Ql (Unsp spec) Not detected Normal NOT DETECTED [facility] Comment on above: Result Comment: [...] for this test is supported by the [place] of Health and Human Service's declaration that [...] used). Performed By: #### C VDTBH #### [facility] [address] [place] [address] Dr. Homero Damon DRUG SCREEN RAPID (URINE)on 03-13-2022 AMP Negative Normal NEGATIVE [facility] Comment on above: Performed By: #### D RUGRPD #### [facility] [address] [place] [address] Dr. Homero Damon BAR Negative Normal NEGATIVE [facility] Comment on above: Performed By: #### D RUGRPD #### [facility] [address] [place] [address] Dr. Homero Damon BUP Negative Normal NEGATIVE [facility] Comment on above: Performed By: #### D RUGRPD #### [facility] [address] [place] [address] Dr. Homero Damon BZO Negative Normal NEGATIVE [facility] Comment on above: Performed By: #### D RUGRPD #### [facility] [address] [place] [address] Dr. Homero Damon MADHURI Negative Normal NEGATIVE [facility] Comment on above: Performed By: #### D RUGRPD #### [facility] [address] [place] [address] Dr. Homero Damon CUT-OFFS SEE BELOW Normal [facility] Comment on above: Result Comment: AMP (Amphetamine): 500ng/mL, BAR (Barbituates): 200 ng/mL, BZO (Benzodiazepines): 150 ng/mL, BUP (Buprenorphine): 10 ng/mL, MADHURI (Cocaine): 150 ng/mL, mAMP (Methamphetamine): 500 ng/mL, MTD (Methadone): 200 ng/mL, OPI (Opiates): 100 ng/mL, OXY (Oxycodone): 100 ng/mL, PCP (Phencyclidine): 25 ng/mL, PPX (Propoxyphene): 300 ng/mL, THC (Cannabinoids): 50 ng/mL, TCA (Trycyclic Antidepressants): 300 ng/mL Performed By: #### D RUGRPD #### [facility] [address] [place] [address] Dr. Homero Damon DRUG CUT HEADER DRUG CLASS TEST SYSTEM CUT-OFF CONCENTRATIONS ARE FOLLOWS: Normal [facility] Comment on above: Performed By: #### D RUGRPD #### [facility] [address] [place] [address] Dr. Homero Damon mAMP Negative Normal NEGATIVE [facility] Comment on above: Performed By: #### D RUGRPD #### [facility] [address] [place] [address] Dr. Homero Damon MTD Negative Normal NEGATIVE [facility] Comment on above: Performed By: #### D RUGRPD #### [facility] [address] [place] [address] Dr. Homero Damon OPI Negative Normal NEGATIVE [facility] Comment on above: Performed By: #### D RUGRPD #### [facility] [address] [place] [address] Dr. Homero Damon OXY Negative Normal NEGATIVE [facility] Comment on above: Performed By: #### D RUGRPD #### [facility] [address] [place] [address] Dr. Homero Damon PCP Negative Normal NEGATIVE [facility] Comment on above: Performed By: #### D RUGRPD #### [facility] [address] [place] [address] Dr. Homero Damon PPX Negative Normal NEGATIVE [facility] Comment on above: Performed By: #### D RUGRPD #### [facility] [address] [place] [address] Dr. Homero Damon TCA Negative Normal NEGATIVE [facility] Comment on above: Performed By: #### D RUGRPD #### [facility] [address] [place] [address] Dr. Homero Damon THC Positive Abnormal NEGATIVE [facility] Comment on above: Performed By: #### D RUGRPD #### [facility] [address] [place] [address] Dr. Homero Damon TYPE AND SCREENon 03-13-2022 TYPE AND SCREEN Negative Normal [facility] Comment on above: Performed By: #### T HCCONF #### [facility] [address] [place] [address] Dr. Homero Damon UA (CLEAN/CATCH) RN ENDOCRINOLOGY/MICRO I F IND.on 03-10-2022 Bilirubin Ql (U) Negative Normal NEGATIVE [facility] Comment on above: Performed By: #### U ACSIND #### [facility] [address] [place] [address] Dr. Homero Damon Clarity (U) CLEAR Normal CLEAR [facility] Comment on above: Performed By: #### U ACSIND #### [facility] [address] [place] [address] Dr. Homero Damon Color (U) YELLOW Normal YELLOW [facility] Comment on above: Performed By: #### U ACSIND #### [facility] [address] [place] [address] Dr. Homero Damon Glucose Ql (U) Negative Normal NEGATIVE [facility] Comment on above: Performed By: #### U ACSIND #### [facility] [address] [place] [address] Dr. Homero Damon Hemoglobin Ql (U) Negative Normal NEGATIVE [facility] Comment on above: Performed By: #### U ACSIND #### [facility] [address] [address] [address] Homero Damon Ketones Ql (U) Negative Normal NEGATIVE [facility] Comment on above: Performed By: #### U ACSIND #### [facility] [address] [place] [address] Dr. Homero Damon LEUKOCYTES Negative Normal NEGATIVE [facility] Comment on above: Performed By: #### U ACSIND #### [facility] [address] [place] [address] Dr. Homero Damon Nitrite Ql (U) Negative Normal NEGATIVE [facility] Comment on above: Performed By: #### U ACSIND #### [facility] [address] [place] [address] Dr. Homero Damon pH (U) 6.0 [pH] Normal 5-9 [facility] Comment on above: Performed By: #### U ACSIND #### [facility] [address] [place] [address] Dr. Homero Damon SPEC GRAVITY 1.025 Normal 1.005-<=1.025 [facility] Comment on above: Performed By: #### U ACSIND #### [facility] [address] [place] [address] Dr. Homero Damon UA PROTEIN Negative Normal NEGATIVE/ TRACE [facility] [facility] Comment on above: Performed By: #### U ACSIND #### [facility] [address] [place] [address] Dr. Homero Damon UR MICRO IND NOT INDICATED Normal The [facility] Comment on above: Performed By: #### U ACSIND #### [facility] [address] [place] [address] Dr. Homero Damon Urobilinogen Qn (U) 1.0 {Saad'U}/dL Normal 0.2 - 1. 0 [facility] Comment on above: Performed By: #### U ACSIND #### [facility] [address] [place] [address] Dr. Homero Damon GROUP B STREP CULTUREon 02-11 S. agalactiae Ag Ql (Unsp spec) Culture Observations: Called Group B Strep to Millie Armando, Resident Care Associate on 02/25 @ 8725 Isolate 1 Streptococcus agalactiae Moderate growth of ORGANISM 1 Streptococcus agalactiae ANTIBIOTIC M.I.C RX STATUS Benzylpenicillin <=0.06 S F Ampicillin <=0.25 S F Cefotaxime <=0.12 S F Ceftriaxone <=0.12 S F Levofloxacin 0.5 S F Erythromycin >=8 R F Clindamycin >=1 R F Linezolid <=2 S F Vancomycin 0.5 S F Tetracycline >=16 R F Normal The [facility] Comment on above: Performed By: #### T HCCONF #### [facility] [address] [place] [address] Dr. Homero Damon CULTURE URINEon 02-23-2022 CULTURE [...] Trimethoprim/Sulfame thoxazole <=20 S F Normal The [facility] Comment on above: Performed By: #### U RCX #### [facility] [address] [place] [address] Dr. Homero Damon UA RANDOM W/MICROSCOPICon BACTERIA LARGE Abnormal NONE SEEN The [facility] Comment on above: Performed By: #### U AMIC #### [facility] [address] [place] [address] Dr. Homero Damon Bilirubin Ql (U) Negative Normal NEGATIVE The [facility] Comment on above: Performed By: #### U AMIC #### [facility] [address] [place] [address] Dr. Homero Damon CAST NONE SEEN Normal NONE SEEN The [facility] Comment on above: Performed By: #### U AMIC #### [facility] [address] [address] [address] Homero Damon Clarity (U) CLEAR Normal CLEAR The [facility] Comment on above: Performed By: #### U AMIC #### [facility] [address] [place] [address] Dr. Homero Damon Color (U) LT. YELLOW Normal YELLOW The [facility] Comment on above: Performed By: #### U AMIC #### [facility] [address] [address] [address] Homero Damon Crystals LM Nom (Urine sed) NONE SEEN Normal NONE SEEN The [facility] Comment on above: Performed By: #### U AMIC #### [facility] [address] [place] [address] Dr. Homero Damon Epithelial cells LM Ql (Urine sed) FEW Abnormal NONE SEEN /RARE The [facility] Comment on above: Performed By: #### U AMIC #### [facility] [address] [place] [address] Dr. Homero Damon Glucose Ql (U) Negative Normal NEGATIVE The [facility] Comment on above: Performed By: #### U AMIC #### [facility] [address] [place] [address] Dr. Homero Damon Hemoglobin Ql (U) Negative Normal NEGATIVE The [facility] Comment on above: Performed By: #### U AMIC #### [facility] [address] [place] [address] Dr. Homero Damon Ketones Ql (U) TRACE Abnormal NEGATIVE The [facility] Comment on above: Performed By: #### U AMIC #### [facility] [address] [place] [address] Dr. Homero Damon LEUKOCYTES TRACE Abnormal NEGATIVE The [facility] Comment on above: Performed By: #### U AMIC #### [facility] [address] [place] [address] Dr. Homero Damon MUCOUS NONE SEEN Normal NONE SEEN The [facility] Comment on above: Performed By: #### U AMIC #### [facility] [address] [place] [address] Dr. Homero Damon Nitrite Ql (U) Negative Normal NEGATIVE [facility] Comment on above: Performed By: #### U AMIC #### [facility] [address] [place] [address] Dr. Homero Damon pH (U) 6.0 [pH] Normal 5-9 [facility] Comment on above: Performed By: #### U AMIC #### [facility] [address] [address] [address] Homero Damon RBC NONE SEEN Abnormal 0-2 [facility] Comment on above: Performed By: #### U AMIC #### [facility] [address] [address] [address] Homero Damon SPEC GRAVITY 1.025 Normal 1.005-<=1.025 The [facility] Comment on above: Performed By: #### U AMIC #### [facility] [address] [place] [address] Dr. Homero Damon UA PROTEIN Negative Normal NEGATIVE/ TRACE The [facility] Comment on above: Performed By: #### U AMIC #### [facility] [address] [place] [address] Dr. Homero Damon Urobilinogen Qn (U) 0.2 {Saad'U}/dL Normal 0.2 - 1. 0 [facility] Comment on above: Performed By: #### U AMIC #### [facility] [address] [place] [address] Dr. Homero Damon WBC 5-10 Abnormal NONE SEEN [facility] Comment on above: Performed By: #### U AMIC #### [facility] [address] [address] [address] Homero Damon GLUCOSE - 1HRon 12-12-2021 Glucose [Mass/Vol] 128 mg/dL Critically high 74-106 [facility] Comment on above: Performed By: #### G LU1HR #### [facility] [address] [place] [address] Dr. Homero Damon HEMOGRAM AND PLATELon 2021 Hematocrit (Bld) [Volume fraction] 38.8 % Normal 36.0-48.0 [facility] Comment on above: Performed By: #### H H #### [facility] [address] [place] [address] Dr. Homero Damon Hemoglobin (Bld) [Mass/Vol] 12.3 g/dL Normal 12.0-16.0 [facility] Comment on above: Performed By: #### H H #### [facility] [address] [place] [address] Dr. Homero Damon MCH (RBC) [Entitic mass] 25.8 pg Critically low 26.7-34.0 [facility] Comment on above: Performed By: #### H H #### [facility] [address] [place] [address] Dr. Homero Damon MCHC (RBC) [Mass/Vol] 31.7 g/dL Normal 29.9-35.2 [facility] Comment on above: Performed By: #### H H #### [facility] [address] [place] [address] Dr. Homero Damon MCV (RBC) [Entitic vol] 81.3 fL Normal 81.0-99.0 [facility] Comment on above: Performed By: #### H H #### [facility] [address] [place] [address] Dr. Homero Damon PLT 304 103/ul Normal 150-450 The [facility] Comment on above: Performed By: #### H H #### [facility] [address] [place] [address] Dr. Homero Damon RBC 4.77 106/ul Normal 4.20-5.40 The [facility] Comment on above: Performed By: #### H H #### [facility] [address] [place] [address] Dr. Homero Damon WBC 9.9 103/ul Normal 4.0-11.0 The [facility] Comment on above: Performed By: #### H H #### [facility] [address] [place] [address] Dr. Homero Damon CULTURE URINEon 12-06-2021 CULTURE [...] F Trimethoprim/Sulfame thoxazole <=20 S F Normal [facility] Comment on above: Performed By: #### [facility] #### [facility] [address] [place] [address] Dr. Homero Damon Vital Signs Date Time Vital Sign Value Performing Clinician Faci lity 09-03-2023 10:39-0500 Body height 160 cm Marielena Hernandez MD Work Phone: [facility] 09-03-2023 10:39-0500 Body mass index (BMI) [Ratio] 41.45 kg/m2 Marielena Hernandez MD Work Phone: [facility] 09-03-2023 10:39-0500 Body weight 106.14 kg Marielena Hernandez MD Work Phone: [facility] 09-03-2023 10:39-0500 Diastolic blood pressure 88 mm[Hg] Marielena Hernandez MD Work Phone: [facility] 09-03-2023 10:39-0500 Heart rate 98 /min Marielena Hernandez MD Work Phone: [facility] 09-03-2023 10:39-0500 Systolic blood pressure 123 mm[Hg] Marielena Hernandez MD Work Phone: [facility] 08-21-2023 10:31-0500 Body mass index (BMI) [Ratio] 43.48 kg/m2 Trisha CASTELLANOS Work Phone: [facility] 08-21-2023 10:31-0500 Body weight 104.38 kg Trisha Bryon PA Work Phone: [facility] 08-21-2023 10:31-0500 Diastolic blood pressure 60 mm[Hg] Trisha CASTELLANOS Work Phone: [facility] 08-21-2023 10:31-0500 Systolic blood pressure 118 mm[Hg] Trisha CASTELLANOS Work Phone: [facility] Encounters Encounter Date Encounter Type Care Provider Facility Start: 12-04-2023 End: 12-04-2023 ambulatory TRISHA BRYON Not Available Start: 11-27-2023 End: 11-27-2023 ambulatory LEA DANO Not Available Start: 11-13-2023 End: 11-13-2023 ambulatory TRISHA BRYON Not Available Start: 10-30-2023 End: 10-30-2023 ambulatory LEA DANO Not Available Start: 10-15-2023 End: 10-15-2023 ambulatory TRISHA BRYON Not Available Start: 09-17-2023 End: 09-17-2023 ambulatory LAE DANO Not Available Start: 09-03-2023 End: [facility] Start: 09-03-2023 End: 09-03-2023 Office outpatient visit 10 minutes Marielena Hernandez MD Work Phone: [facility] Comment on above: 22 weeks gestation o f (Primary Dx); Severe obesity with alveolar hypoventilation affecting , antepartum ([facility] Start: 08-21-2023 End: 08-21-2023 ambulatory TRISHA SLATER Not Available Start: 08-21-2023 End: 08-21-2023 Office outpatient visit 15 minutes Trisha CASTELLANOS Work Phone: [facility] Comment on above: Second trimester pre gnancy; Diabetes mellitus screening Start: 08-20-2023 Chart abstracting Marielena Hernandez MD Work Phone: [facility] Start: 07-23-2023 End: 07-23-2023 ambulatory LEA DANO [...] Td Vaccines (8 - Td or Tdap) [facility] Start: 09-17-2023 End: 09-17-2023 Patient encounter procedure 09/17/2023 10:50 AM EST Routine [facility] [address] [place] [address] Lea Cole, DO [address] [place] [address] [facility] Start: 09-03-2023 End: 09-03-2023 Patient encounter procedure [facility] Start: 08-21-2023 End: 08-21-2024 CBC panel - Blood by Automated count CBC Lab Routine Diabetes mellitus screening Expected: 08/21/2023 (Approximate), Expires: 08/21/2024 [facility] Work Phone: Comment on above: Expected: 08/21/2023 (Approximate), Expires: 08/21/2024 Start: 08-21-2023 End: 08-21-2024 Measurement of glucose 1 hour after glucose challenge for glucose tolerance test Glucose tolerance, 1 hour Lab Routine Diabetes mellitus screening Expected: 08/21/2023 (Approximate), Expires: 08/21/2024 [facility] Comment on above: Expected: 08/21/2023 (Approximate), Expires: 08/21/2024 Start: 03-14-2023 Influenza vaccination Influenza Vacc ine [facility] Start: 2021 Screening for malign ant neoplasm of cervix Pap Smear [facility] Start: 2019 DTaP,Tdap and Td Vaccines (1 - Tdap) DTaP,Tdap and Td Vaccines (1 - Tdap) [facility] Start: 2018 Adult BMI Follow Up Plan Adult BMI Follow Up Plan [facility] Start: 2018 Adult BMI Screening Adult BMI Screen ing [facility] Start: 2012 Depression Screening Depression Scre ening [facility] Start: 2012 Tobacco Screening Tobacco Screening [facility] Immunizations Immunization Date Immunization Notes Care Provider Fa cility 06-03-2013 influenza virus vaccine, unspecified formulation Marielena Hernandez MD Work Phone: [facility] Payers Date Payer Category Payer Medicaid [id number] 2022 Medicaid [id number] 2022 Medicaid [id number] 2000 Unknown [id number] 2.16.84 [id number] 2000 Unknown [id number] 2.16.84 0.1.701256.3.579.2.593 2000 Unknown [id number] 2.16.84 0.1.709125.3.579.2.593 2000 Unknown [id number] 2.16.84 0.1.076324.3.579.2.593 2000 Unknown [id number] 2.16.84 0.1.479233.3.579.2.593 2000 Unknown [id number] 2.16.84 0.1.489011.3.579.2.593 2000 Unknown [id number] 2.16.84 0.1.409258.3.579.2.593 2000 Unknown [id number] 2.16.8 40.1.059726.3.579.2.1286 2000 Unknown [id number] 2.16.8 40.1.185215.3.579.2.1286 2000 Unknown [id number] 2.16.84 0.1.812352.3.579.2.1259 2000 Unknown [id number] 2.16.84 0.1.983924.3.579.2.1259 2000 Unknown [id number] 2.16.84 0.1.603054.3.579.2.1259 2000 Unknown [id number] 2.16.84 0.1.002708.3.579.2.1259 2000 Unknown [id number] 2.16.84 0.1.290871.3.579.2.1259 2000 Unknown [id number] 2.16.84 0.1.538647.3.579.2.1259 2000 Unknown [id number] 2.16.84 0.1.881653.3.579.2.1259 2000 Unknown [id number] 2.16.84 0.1.469076.3.579.2.1259 2000 Unknown [id number] 2.16.840 .1.764809.3.579.2.1259 1959 Unknown [id number] Social History Date Type Detail Facility Start: 04-08-2017 End: 09-03-2023 Tobacco smoking status NHIS Never smoked tobacco [facility] Start: 04-08-2017 End: 09-03-2023 Tobacco use and exposure Smokeless tobacco non-user [facility] Start: 08-20-2023 End: 09-03-2023 Alcohol intake Current non-drinker of alcohol (finding) [facility] Start: 08-24-2020 End: 08-20-2023 History of Social function [facility] Start: 08-24-2020 End: 08-20-2023 Tobacco use panel [facility] Unknown [facility] Start: 04-14-2023 [facility] Start: 2000 Sex Assigned At Not on file [facility] Start: 06-13-2023 Gender identity Identifies as [...] Yes Have you been seen here at [facility] in a previous ? No Recent ER visits or hospitalizations? No Bring blood sugar log or meter with you today? (Please bring them with you for every visit at [facility]) N/A Traveled outside the country in the [...] TESTS AND ULTRASOUND REPORTS: Referral records and [facility] chart were reviewed Pertinent Ultrasound findings [...] patient is in complete care of her rn endocrinology. Patient does have ultrasound and office visit [...] Referring and communicating with other health care nurse rn (not separately reported) Documenting clinical information in the electronic or other health record Marielena Hernandez MD [facility] [id number] [facility] [address] [place] [address] [facility], the CDC, and other organizations representing maternal and public health professionals recommend that , , and lactating people and those considering receive the COVID-19 vaccination. Vaccination is the best method to reduce maternal and complications of SARS-CoV-2 infection. This document was created with [employer] technology. Though I make every effort to review the dictation as it is transcribed, on occasion the spoken word can be misinterpreted by the technology leading to inappropriate words, phrases, or sentences. This note is addressed to the requesting provider as a consultation for clinical guidance. Specific medical abbreviations are occasionally used and those are generally approved by the [place]?Board of?Obstetrics and?Gynecology?as well as?Terrance grimm abbreviations. The above plan of care was based solely on the diagnoses for which a consultation was requested. ?More frequent testing may be indicated based on her other medical/obstetrical conditions. The management of other or medical conditions is beyond the scope of requested consultation and will continue to be followed by the primary rn endocrinology or primary care provider. Note to patient: The Cures Act makes medical notes like these [...] of the practitioner. documented in this encounter [facility] History of Present illness Narrative 08-21-2023 EMANUEL [...] obesity with alveolar hypoventilation affecting , antepartum ([facility]) documented in this encounter [facility] [...] and content) DATE CREATED AUTHOR 11/20/2022 [facility] DATE CREATED AUTHOR AUTHOR'S ORGANIZ ATION 09/10/2023 [facility] DATE CREATED AUTHOR AUTHOR'S ORGANIZ ATION 12/06/2023 [facility] EPIC Reason for Visit (unrecogniz [...] BE BASED ON THE PRIMARY CLINICAL RECORDS. [facility] [employer] provides no warranty or guarantee of the accuracy or completeness of information in this document.
--- NOTE | 2023-12-10 10:53 | US_ITS ---
[address] [address] Patient Name: JULIANA MICHELE MRN: [id number] date: 2000 Sex: F Assigned Patient Location: Current Patient Location: [facility] Accession/Order Number: [id number] Exam Date: 12/10/2023 10:55 Report Date: 12/10/2023 11:54 At the request of: LEA MATSON Procedure: US OB BPP w non-stress EXAMINATION: US OB BPP w non-stress HISTORY: Excessive growth COMPARISON: No relevant comparison available. TECHNIQUE: Ultrasound biophysical profile was performed in the radiology department. non-reactive stress testing was performed by nursing staff in the birthing center. FINDINGS: BREATHING MOVEMENTS: 2.0 GROSS BODY MOVEMENTS: 2.0 TONE: 2.0 QUALITATIVE AMNIOTIC FLUID VOLUME: 2.0 PRESENTATION: CEPHALIC HEART RATE: 142.1 bpm H.B./min AMNIOTIC FLUID VOLUME: 13.4 cm cm GESTATIONAL AGE: 36 weeks 2 days CONCLUSION: Total biophysical profile score: 8.0 Electronically authenticated by: BETTYE MICHELLE Date: 12/10/2023 11:54
[2023-12-10 11:38] VITALS: BP 125/70; PULSE 91
== END 2023-12-10 12:05 | disposition home or self-care (01) ==
LOC: US 07:46 → FBC 11:16
PROVIDERS: PCP Nurse Practitioner Primary Care; Visit Provider Obstetrics & Gynecology
DX: O36.63X0 Maternal care for excessive fetal growth, third trimester, not applicable or unspecified (principal); Z3A.36 36 weeks gestation of pregnancy
CPT/HCPCS: 76818

== ENCOUNTER 2023-12-11 19:11 | Outpatient (REF) | payer MEDICAID, SELFPAY ==
--- OUTSIDE RECORDS SUMMARY | 2023-12-11 19:24 | XMS_ITS | CCD ---
Author Organization [facility] CliniSyct Care Team Providers Care Entry Level Management Name Role Phone PAULO ., DR GRIGGS Admitting Unavailabl e HOY ., DR OSUNA Primary Care Unavailable KARASIK ., DR GRGIGS Attending Unavailabl e KARASIK ., DR GRIGGS [...] UA Negative Negative - 4(70) +++ mg/dL [facility] Blood, UA Negative Negative - 50 Francis/mcL [facility] Clarity, UA Clear [facility] Color, UA Yellow [facility] Glucose, UA Negative Negative - 1999(110) ++++ mg/dL [facility] Interpretation and review of laboratory results Abnormal [facility] Ketones, UA Negative Negative - 160(16) ++++ mg/dL [facility] Leukocytes, UA Negative Negative - 500+++ Shravan/mcL [facility] Nitrite, UA Negative Negative - Positive [facility] pH, UA 6.0 5 - 9 [facility] Protein, UA Trace Negative - 1999(20) ++++ mg/dL [facility] Spec Grav, UA 1.030 1 - 1.03 [facility] Urobilinogen, UA 0.2 0.2 - 12 mg/dL [facility] AFP Single Marker ScrnRalph rnal, Serumon 07-26-2023 Ms Alpha-Fetoprotein Negative [facility] Free Cell DNAon 2022 Free Cell Dna LOW RISK [facility] CBC without diffon Hematocrit (Bld) [Volume fraction] 38.7 % [facility] Hemoglobin (Bld) [Mass/Vol] 12.0 g/dL [facility] Platelets (Bld) [#/Vol] 365 10*3/uL [facility] HIV 1&2 AB/AG Screen (P24 AG )on 06-20-2023 HIV 1&2 AB/AG Non-Reactive [facility] Hepatitis B surface antigeno n 06-20-2023 Hepatitis B Surface Antigen Negative [facility] Hepatitis C(HCV) Ab w/ Refle x to PCRon 06-20-2023 HCV Ab Ql (S) Non-Reactive [facility] No Panel InformationOrdered By: Nicky Miles on 06-20-2023 [facility] Rubella IGG immune statuson 06-20-2023 Rubella immune IgG 2.23 IMMUNE [facility] Syphilis Total(Unknown Syphi lis Status)Ordered By: Nicky Miles on 06-20-2023 Syphilis Non-Reactive [facility] TSHon 06-20-2023 Thyroid Stimulating (3Rd Generation) Hormone/ Tsh 0.708 [facility] PAP ACOG PANEL 2: 21 to 29on 11-20-2022 . . [facility] Comment on above: Performed By: #### [id number] #### [facility] [address] [place] [address] Dr. Homero Damon Age Gdln ACOG Testing 21- Normal [facility] Comment on above: Performed By: #### [id number] #### [facility] [address] [place] [address] Dr. Homero Damon DIAGNOSIS: Comment Normal [facility] Comment on above: Result Comment: NEGA TIVE FOR INTRAEPITHELIAL LESION OR MALIGNANCY. Performed By: #### [id number] #### [facility] [address] [place] [address] Dr. Homero Damon Methodology: Comment Normal [facility] Comment on above: Result Comment: This liquid based ThinPrep(R) pap test was screened with the use of an image guided system. Performed By: #### [id number] #### [facility] [address] [place] [address] Dr. Homero Damon Note: Comment Normal [facility] Comment on above: Result Comment: The Pap smear is a screening test designed to aid in the detection of premalignant and malignant conditions of the uterine cervix. It is not a diagnostic procedure and should not be used as the sole means of detecting cervical cancer. Both false-positive and false-negative reports do occur. . Performed By: #### [id number] #### [facility] [address] [place] [address] Dr. Homero Damon Performed by: Comment Normal [facility] Comment on above: Result Comment: Haris Alexis, Mental Health Consultant (ASCP) Performed By: #### [id number] #### [facility] [address] [place] [address] Dr. Homero Damon Reflex Criteria: Comment Normal [facility] Comment on above: Result Comment: The HPV DNA reflex criteria were not met with this specimen result therefore, no HPV testing was performed. . Performed By: #### [id number] #### [facility] [address] [place] [address] Dr. Homero Damon Specimen adequacy: Comment Normal [facility] Comment on above: Result Comment: Sati sfactory for evaluation. Endocervical and/or squamous metaplastic cells (endocervical component) are present. Performed By: #### [id number] #### [facility] [address] [place] [address] Dr. Homero Damon CANNABINOID (THC) CONFIRMATI ON, URINEon 03-19-2022 Cannabinoid Positive Abnormal [facility] Comment on above: Performed By: #### T HCCONF #### [facility] [address] [address] [address] Homero Damon Carboxy THC GC/MS Conf 47 ng/mL Normal Cutoff=10 Th [facility] Comment on above: Performed By: #### T HCCONF #### [facility] [address] [place] [address] Dr. Homero Damon CBC AUTO DIFFon 03-15-2022 BASO # 0.0 103/ul Normal 0.0-0.1 [facility] Comment on above: Performed By: #### C BC #### [facility] [address] [place] [address] Dr. Homero Damon Basophils/100 WBC (Bld) 0.2 % Normal 0.2-2.0 [facility] Comment on above: Performed By: #### C BC #### [facility] [address] [place] [address] Dr. Homero Damon EO # 0.2 103/ul Normal 0.0-0.7 [facility] Comment on above: Performed By: #### C BC #### [facility] [address] [place] [address] Dr. Homero Damon Eosinophils/100 WBC (Bld) 1.5 % Normal 0.9-7.0 [facility] Comment on above: Performed By: #### C BC #### [facility] [address] [place] [address] Dr. Homero Damon Erythrocyte distribution width (RBC) [Ratio] 16.1 % Critically high 11.0-15.0 [facility] Comment on above: Performed By: #### C BC #### [facility] [address] [place] [address] Dr. Homero Damon Hematocrit (Bld) [Volume fraction] 32.7 % Critically low 36.0-48.0 [facility] Comment on above: Performed By: #### C BC #### [facility] [address] [place] [address] Dr. Homero Damon Hemoglobin (Bld) [Mass/Vol] 9.7 g/dL Critically low 12.0-16.0 [facility] Comment on above: Performed By: #### C BC #### [facility] [address] [address] [address] Homero Damon IG # 0.04 10e3/ul Critically high 0.00-0.03 [facility] Comment on above: Performed By: #### C BC #### [facility] [address] [address] [address] Homero Damon IG % 0.4 % Normal 0.0-0.5 [facility] Comment on above: Performed By: #### C BC #### [facility] [address] [place] [address] Dr. Homero Damon LYMPH # 3.5 103/ul Normal 1.2-3.8 [facility] Comment on above: Performed By: #### C BC #### [facility] [address] [place] [address] Dr. Homero Damon Lymphocytes/100 WBC (Bld) 32.9 % Normal 20.5-60.0 [facility] Comment on above: Performed By: #### C BC #### [facility] [address] [place] [address] Dr. Homero Damon MANUAL DIFF REQ NO Normal [facility] Comment on above: Performed By: #### C BC #### [facility] [address] [place] [address] Dr. Homero Damon MCH (RBC) [Entitic mass] 23.0 pg Critically low 26.7-34.0 [facility] Comment on above: Performed By: #### C BC #### [facility] [address] [place] [address] Dr. Homero Damon MCHC (RBC) [Mass/Vol] 29.7 g/dL Critically low 29.9-35.2 [facility] Comment on above: Performed By: #### C BC #### [facility] [address] [place] [address] Dr. Homero Damon MCV (RBC) [Entitic vol] 77.7 fL Critically low 81.0-99.0 [facility] Comment on above: Performed By: #### C BC #### [facility] [address] [place] [address] Dr. Homero Damon MONO # 0.8 103/ul Normal 0.3-0.8 [facility] Comment on above: Performed By: #### C BC #### [facility] [address] [place] [address] Dr. Homero Damon Monocytes/100 WBC (Bld) 7.1 % Normal 1.7-12.0 [facility] Comment on above: Performed By: #### C BC #### [facility] [address] [place] [address] Dr. Homero Damon NEUT # 6.1 103/ul Normal 1.4-6.5 [facility] Comment on above: Performed By: #### C BC #### [facility] [address] [place] [address] Dr. Homero Damon Neutrophils/100 WBC (Bld) 57.9 % Normal 43.0-75.0 [facility] Comment on above: Performed By: #### C BC #### [facility] [address] [place] [address] Dr. Homero Damon Platelet mean volume (Bld) [Entitic vol] 11.0 fL Normal 9.5-13.5 [facility] Comment on above: Performed By: #### C BC #### [facility] [address] [place] [address] Dr. Homero Damon PLT 253 103/ul Normal 150-450 [facility] Comment on above: Performed By: #### C BC #### [facility] [address] [place] [address] Dr. Homero Damon RBC 4.21 106/ul Normal 4.20-5.40 [facility] Comment on above: Performed By: #### C BC #### [facility] [address] [place] [address] Dr. Homero Damon WBC 10.6 103/ul Normal 4.0-11.0 [facility] Comment on above: Performed By: #### C BC #### [facility] [address] [place] [address] Dr. Homero Damon CBC AUTO DIFFon 03-13-2022 BASO # 0.0 103/ul Normal 0.0-0.1 [facility] Comment on above: Performed By: #### T HCCONF #### [facility] [address] [address] [address] Homero Damon Basophils/100 WBC (Bld) 0.3 % Normal 0.2-2.0 [facility] Comment on above: Performed By: #### T HCCONF #### [facility] [address] [address] [address] Homero Damon EO # 0.0 103/ul Normal 0.0-0.7 [facility] Comment on above: Performed By: #### T HCCONF #### [facility] [address] [address] [address] Homero Damon Eosinophils/100 WBC (Bld) 0.2 % Critically low 0.9-7.0 [facility] Comment on above: Performed By: #### T HCCONF #### [facility] [address] [address] [address] Homero Damon Erythrocyte distribution width (RBC) [Ratio] 16.0 % Critically high 11.0-15.0 [facility] Comment on above: Performed By: #### T HCCONF #### [facility] [address] [place] [address] Dr. Homero Damon Hematocrit (Bld) [Volume fraction] 35.3 % Critically low 36.0-48.0 [facility] Comment on above: Performed By: #### T HCCONF #### [facility] [address] [address] [address] Homero Damon Hemoglobin (Bld) [Mass/Vol] 11.0 g/dL Critically low 12.0-16.0 [facility] Comment on above: Performed By: #### T HCCONF #### [facility] [address] [place] [address] Dr. Homero Damon IG # 0.04 10e3/ul Critically high 0.00-0.03 [facility] Comment on above: Performed By: #### T HCCONF #### [facility] [address] [address] [address] Homero Damon IG % 0.4 % Normal 0.0-0.5 [facility] Comment on above: Performed By: #### T HCCONF #### [facility] [address] [address] [address] Homero Damon LYMPH # 2.5 103/ul Normal 1.2-3.8 [facility] Comment on above: Performed By: #### T HCCONF #### [facility] [address] [address] [address] Homero Damon Lymphocytes/100 WBC (Bld) 26.4 % Normal 20.5-60.0 [facility] Comment on above: Performed By: #### T HCCONF #### [facility] [address] [address] [address] Homero Damon MANUAL DIFF REQ NO Normal [facility] Comment on above: Performed By: #### T HCCONF #### [facility] [address] [address] [address] Homero Damon MCH (RBC) [Entitic mass] 23.5 pg Critically low 26.7-34.0 [facility] Comment on above: Performed By: #### T HCCONF #### [facility] [address] [address] [address] Homero Damon MCHC (RBC) [Mass/Vol] 31.2 g/dL Normal 29.9-35.2 [facility] Comment on above: Performed By: #### T HCCONF #### [facility] [address] [address] [address] Homero Damon MCV (RBC) [Entitic vol] 75.4 fL Critically low 81.0-99.0 [facility] Comment on above: Performed By: #### T HCCONF #### [facility] [address] [address] [address] Homero Damon MONO # 0.6 103/ul Normal 0.3-0.8 [facility] Comment on above: Performed By: #### T HCCONF #### [facility] [address] [place] [address] Dr. Homero Damon Monocytes/100 WBC (Bld) 6.4 % Normal 1.7-12.0 [facility] Comment on above: Performed By: #### T HCCONF #### [facility] [address] [place] [address] Dr. Homero Damon NEUT # 6.4 103/ul Normal 1.4-6.5 [facility] Comment on above: Performed By: #### T HCCONF #### [facility] [address] [place] [address] Dr. Homero Damon Neutrophils/100 WBC (Bld) 66.3 % Normal 43.0-75.0 [facility] Comment on above: Performed By: #### T HCCONF #### [facility] [address] [place] [address] Dr. Homero Damon Platelet mean volume (Bld) [Entitic vol] 11.0 fL Normal 9.5-13.5 [facility] Comment on above: Performed By: #### T HCCONF #### [facility] [address] [place] [address] Dr. Homero Damon PLT 312 103/ul Normal 150-450 [facility] Comment on above: Performed By: #### T HCCONF #### [facility] [address] [place] [address] Dr. Homero Damon RBC 4.68 106/ul Normal 4.20-5.40 [facility] Comment on above: Performed By: #### T HCCONF #### [facility] [address] [place] [address] Dr. Homero Damon WBC 9.6 103/ul Normal 4.0-11.0 [facility] Comment on above: Performed By: #### T HCCONF #### [facility] [address] [place] [address] Dr. Homero Damon [facility]on 02-13 SARS-CoV-2 (COVID-19) RNA LORRAINE+probe Ql (Unsp spec) Not detected Normal NOT DETECTED [facility] Comment on above: Result Comment: When diagnostic [...] for this test is supported by the [place] of [employer] and Human Service's declaration that [...] used). Performed By: #### C VDTBH #### [facility] [address] [place] [address] Dr. Homero Damon DRUG SCREEN RAPID (URINE)on 03-13-2022 AMP Negative Normal NEGATIVE [facility] Comment on above: Performed By: #### D RUGRPD #### [facility] [address] [place] [address] Dr. Homero Damon BAR Negative Normal NEGATIVE [facility] Comment on above: Performed By: #### D RUGRPD #### [facility] [address] [place] [address] Dr. Homero Damon BUP Negative Normal NEGATIVE [facility] Comment on above: Performed By: #### D RUGRPD #### [facility] [address] [place] [address] Dr. Homero Damon BZO Negative Normal NEGATIVE [facility] Comment on above: Performed By: #### D RUGRPD #### [facility] [address] [place] [address] Dr. Homero Damon MADHURI Negative Normal NEGATIVE [facility] Comment on above: Performed By: #### D RUGRPD #### [facility] [address] [place] [address] Dr. Homero Damon CUT-OFFS SEE BELOW Normal [facility] Comment on above: Result Comment: AMP [...] ng/mL Performed By: #### D RUGRPD #### [facility] [address] [place] [address] Dr. Homero Damon DRUG CUT HEADER DRUG CLASS TEST SYSTEM CUT-OFF CONCENTRATIONS ARE FOLLOWS: Normal [facility] Comment on above: Performed By: #### D RUGRPD #### [facility] [address] [place] [address] Dr. Homero Damon mAMP Negative Normal NEGATIVE [facility] Comment on above: Performed By: #### D RUGRPD #### [facility] [address] [place] [address] Dr. Homero Damon MTD Negative Normal NEGATIVE [facility] Comment on above: Performed By: #### D RUGRPD #### [facility] [address] [place] [address] Dr. Homero Damon OPI Negative Normal NEGATIVE [facility] Comment on above: Performed By: #### D RUGRPD #### [facility] [address] [place] [address] Dr. Homero Damon OXY Negative Normal NEGATIVE [facility] Comment on above: Performed By: #### D RUGRPD #### [facility] [address] [place] [address] Dr. Homero Damon PCP Negative Normal NEGATIVE [facility] Comment on above: Performed By: #### D RUGRPD #### [facility] [address] [place] [address] Dr. Homero Damon PPX Negative Normal NEGATIVE [facility] Comment on above: Performed By: #### D RUGRPD #### [facility] [address] [place] [address] Dr. Homero Damon TCA Negative Normal NEGATIVE [facility] Comment on above: Performed By: #### D RUGRPD #### [facility] [address] [place] [address] Dr. Homero Damon THC Positive Abnormal NEGATIVE [facility] Comment on above: Performed By: #### D RUGRPD #### [facility] [address] [place] [address] Dr. Homero Damon TYPE AND SCREENon 03-13-2022 TYPE AND SCREEN Negative Normal [facility] Comment on above: Performed By: #### T HCCONF #### [facility] [address] [place] [address] Dr. Homero Damon UA (CLEAN/CATCH) SPICE BLENDER/MICRO I F IND.on 03-10-2022 Bilirubin Ql (U) Negative Normal NEGATIVE [facility] Comment on above: Performed By: #### U ACSIND #### [facility] [address] [place] [address] Dr. Homero Damon Clarity (U) CLEAR Normal CLEAR [facility] Comment on above: Performed By: #### U ACSIND #### [facility] [address] [place] [address] Dr. Homero Damon Color (U) YELLOW Normal YELLOW [facility] Comment on above: Performed By: #### U ACSIND #### [facility] [address] [place] [address] Dr. Homero Damon Glucose Ql (U) Negative Normal NEGATIVE [facility] Comment on above: Performed By: #### U ACSIND #### [facility] [address] [place] [address] Dr. Homero Damon Hemoglobin Ql (U) Negative Normal NEGATIVE [facility] Comment on above: Performed By: #### U ACSIND #### [facility] [address] [address] [address] Homero Damon Ketones Ql (U) Negative Normal NEGATIVE [facility] Comment on above: Performed By: #### U ACSIND #### [facility] [address] [place] [address] Dr. Homero Damon LEUKOCYTES Negative Normal NEGATIVE [facility] Comment on above: Performed By: #### U ACSIND #### [facility] [address] [place] [address] Dr. Homero Damon Nitrite Ql (U) Negative Normal NEGATIVE [facility] Comment on above: Performed By: #### U ACSIND #### [facility] [address] [place] [address] Dr. Homero Damon pH (U) 6.0 [pH] Normal 5-9 [facility] Comment on above: Performed By: #### U ACSIND #### [facility] [address] [place] [address] Dr. Homero Damon SPEC GRAVITY 1.025 Normal 1.005-<=1.025 [facility] Comment on above: Performed By: #### U ACSIND #### [facility] [address] [place] [address] Dr. Homero Damon UA PROTEIN Negative Normal NEGATIVE/ TRACE [facility] Comment on above: Performed By: #### U ACSIND #### [facility] [address] [place] [address] Dr. Homero Damon UR MICRO IND NOT INDICATED Normal [facility] Comment on above: Performed By: #### U ACSIND #### [facility] [address] [place] [address] Dr. Homero Damon Urobilinogen Qn (U) 1.0 {Saad'U}/dL Normal 0.2 - 1. 0 [facility] Comment on above: Performed By: #### U ACSIND #### [facility] [address] [place] [address] Dr. Homero Damon GROUP B STREP CULTUREon 02-11 S. agalactiae Ag Ql (Unsp spec) Culture Observations: Called Group B Strep to Millie Armando, [employer] on 02/25 @ 8315 Isolate 1 Streptococcus agalactiae Moderate growth of ORGANISM 1 Streptococcus agalactiae ANTIBIOTIC M.I.C RX STATUS Benzylpenicillin <=0.06 S F Ampicillin <=0.25 S F Cefotaxime <=0.12 S F Ceftriaxone <=0.12 S F Levofloxacin 0.5 S F Erythromycin >=8 R F Clindamycin >=1 R F Linezolid <=2 S F Vancomycin 0.5 S F Tetracycline >=16 R F Normal [facility] Comment on above: Performed By: #### T HCCONF #### [facility] [address] [place] [address] Dr. Homero Damon CULTURE URINEon 02-23-2022 CULTURE [...] Trimethoprim/Sulfame thoxazole <=20 S F Normal [facility] Comment on above: Performed By: #### U RCX #### [facility] [address] [place] [address] Dr. Homero Damon UA RANDOM W/MICROSCOPICon BACTERIA LARGE Abnormal NONE SEEN [facility] Comment on above: Performed By: #### U AMIC #### [facility] [address] [place] [address] Dr. Homero Damon Bilirubin Ql (U) Negative Normal NEGATIVE [facility] Comment on above: Performed By: #### U AMIC #### [facility] [address] [place] [address] Dr. Homero Damon CAST NONE SEEN Normal NONE SEEN [facility] Comment on above: Performed By: #### U AMIC #### [facility] [address] [address] [address] Homero Damon Clarity (U) CLEAR Normal CLEAR [facility] Comment on above: Performed By: #### U AMIC #### [facility] [address] [place] [address] Dr. Homero Damon Color (U) LT. YELLOW Normal YELLOW [facility] Comment on above: Performed By: #### U AMIC #### [facility] [address] [address] [address] Homero Damon Crystals LM Nom (Urine sed) NONE SEEN Normal NONE SEEN [facility] Comment on above: Performed By: #### U AMIC #### [facility] [address] [place] [address] Dr. Homero Damon Epithelial cells LM Ql (Urine sed) FEW Abnormal NONE SEEN /RARE [facility] Comment on above: Performed By: #### U AMIC #### [facility] [address] [place] [address] Dr. Homero Damon Glucose Ql (U) Negative Normal NEGATIVE [facility] Comment on above: Performed By: #### U AMIC #### [facility] [address] [place] [address] Dr. Homero Damon Hemoglobin Ql (U) Negative Normal NEGATIVE [facility] Comment on above: Performed By: #### U AMIC #### [facility] [address] [place] [address] Dr. Homero Damon Ketones Ql (U) TRACE Abnormal NEGATIVE [facility] Comment on above: Performed By: #### U AMIC #### [facility] [address] [place] [address] Dr. Homero Damon LEUKOCYTES TRACE Abnormal NEGATIVE [facility] Comment on above: Performed By: #### U AMIC #### [facility] [address] [place] [address] Dr. Homero Damon MUCOUS NONE SEEN Normal NONE SEEN [facility] Comment on above: Performed By: #### U AMIC #### [facility] [address] [place] [address] Dr. Homero Damon Nitrite Ql (U) Negative Normal NEGATIVE [facility] Comment on above: Performed By: #### U AMIC #### [facility] [address] [place] [address] Dr. Homero Damon pH (U) 6.0 [pH] Normal 5-9 [facility] Comment on above: Performed By: #### U AMIC #### [facility] [address] [address] [address] Homero Damon RBC NONE SEEN Abnormal 0-2 [facility] Comment on above: Performed By: #### U AMIC #### [facility] [address] [address] [address] Homero Damon SPEC GRAVITY 1.025 Normal 1.005-<=1.025 [facility] Comment on above: Performed By: #### U AMIC #### [facility] [address] [place] [address] Dr. Homero Damon UA PROTEIN Negative Normal NEGATIVE/ TRACE [facility] Comment on above: Performed By: #### U AMIC #### [facility] [address] [place] [address] Dr. Homero Damon Urobilinogen Qn (U) 0.2 {Saad'U}/dL Normal 0.2 - 1. 0 [facility] Comment on above: Performed By: #### U AMIC #### [facility] [address] [place] [address] Dr. Homero Damon WBC 5-10 Abnormal NONE SEEN [facility] Comment on above: Performed By: #### U AMIC #### [facility] [address] [address] [address] Homero Damon GLUCOSE - 1HRon 12-12-2021 Glucose [Mass/Vol] 128 mg/dL Critically high 74-106 [facility] Comment on above: Performed By: #### G LU1HR #### [facility] [address] [place] [address] Dr. Homero Damon HEMOGRAM AND PLATELon 2021 Hematocrit (Bld) [Volume fraction] 38.8 % Normal 36.0-48.0 [facility] Comment on above: Performed By: #### H H #### [facility] [address] [place] [address] Dr. Homero Damon Hemoglobin (Bld) [Mass/Vol] 12.3 g/dL Normal 12.0-16.0 [facility] Comment on above: Performed By: #### H H #### [facility] [address] [place] [address] Dr. Homero Dmaon MCH (RBC) [Entitic mass] 25.8 pg Critically low 26.7-34.0 [facility] Comment on above: Performed By: #### H H #### [facility] [address] [place] [address] Dr. Homero Damon MCHC (RBC) [Mass/Vol] 31.7 g/dL Normal 29.9-35.2 [facility] Comment on above: Performed By: #### H H #### [facility] [address] [place] [address] Dr. Homero Damon MCV (RBC) [Entitic vol] 81.3 fL Normal 81.0-99.0 [facility] Comment on above: Performed By: #### H H #### [facility] [address] [place] [address] Dr. Homero Damon PLT 304 103/ul Normal 150-450 [facility] Comment on above: Performed By: #### H H #### [facility] [address] [place] [address] Dr. Homero Damon RBC 4.77 106/ul Normal 4.20-5.40 [facility] Comment on above: Performed By: #### H H #### [facility] [address] [place] [address] Dr. Homero Damon WBC 9.9 103/ul Normal 4.0-11.0 [facility] Comment on above: Performed By: #### H H #### [facility] [address] [place] [address] Dr. Homero aDmon CULTURE URINEon 12-06-2021 CULTURE URINE Isolate 1 [...] F Trimethoprim/Sulfame thoxazole <=20 S F Normal [facility] Comment on above: Performed By: #### [facility] #### [facility] [address] [place] [address] Dr. Homero Damon Vital Signs Date Time Vital Sign Value Performing Clinician Faci lity 09-03-2023 10:39-0500 Body height 160 cm Marielena Hernandez MD Work Phone: [facility] 09-03-2023 10:39-0500 Body mass index (BMI) [Ratio] 41.45 kg/m2 Marielena Hernandez MD Work Phone: [facility] 09-03-2023 10:39-0500 Body weight 106.14 kg Marielena Hernandez MD Work Phone: [facility] 09-03-2023 10:39-0500 Diastolic blood pressure 88 mm[Hg] Marielena Hernandez MD Work Phone: [facility] 09-03-2023 10:39-0500 Heart rate 98 /min Marielena Hernandez MD Work Phone: [facility] 09-03-2023 10:39-0500 Systolic blood pressure 123 mm[Hg] Marielena Hernandez MD Work Phone: [facility] 08-21-2023 10:31-0500 Body mass index (BMI) [Ratio] 43.48 kg/m2 Trisha CASTELLANOS Work Phone: [facility] 08-21-2023 10:31-0500 Body weight 104.38 kg Trisha Bryon PA Work Phone: [facility] 08-21-2023 10:31-0500 Diastolic blood pressure 60 mm[Hg] Trisha CASTELLANOS Work Phone: [facility] 08-21-2023 10:31-0500 Systolic blood pressure 118 mm[Hg] Trisha CASTELLANOS Work Phone: [facility] Encounters Encounter Date Encounter Type Care Provider Facility Start: 12-04-2023 End: 12-04-2023 ambulatory TRISHA BRYON Not Available Start: 11-27-2023 End: 11-27-2023 ambulatory LEA DANO Not Available Start: 11-13-2023 End: 11-13-2023 ambulatory TRSIHA BRYON Not Available Start: 10-30-2023 End: 10-30-2023 ambulatory LEA DANO Not Available Start: 10-15-2023 End: 10-15-2023 ambulatory TRISHA BRYON Not Available Start: 09-17-2023 End: 09-17-2023 ambulatory LEA DANO Not Available Start: 09-03-2023 End: 09-03[facility] Start: 09-03-2023 End: 09-03-2023 Office outpatient visit 10 minutes Marielena Hernandez MD Work Phone: [facility] [place] Comment on above: 22 weeks gestation o f (Primary Dx); Severe obesity with alveolar hypoventilation affecting , antepartum ([facility] Start: 08-21-2023 End: 08-21-2023 ambulatory TRISHA SLATER Not Available Start: 08-21-2023 End: 08-21-2023 Office outpatient visit 15 minutes Trisha CASTELLANOS Work Phone: [facility] Comment on above: Second trimester pre gnancy; Diabetes mellitus screening Start: 08-20-2023 Chart abstracting Marielena Hernandez MD Work Phone: [facility] Start: 07-23-2023 End: 07-23-2023 ambulatory LEA [...] Td Vaccines (8 - Td or Tdap) [facility] Start: 09-17-2023 End: 09-17-2023 Patient encounter procedure 09/17/2023 10:50 AM EST Routine [facility] [address] [place] [address] Lea Cole, DO [address] [place] [address] [facility] Start: 09-03-2023 End: 09-03-2023 Patient encounter procedure [facility] Start: 08-21-2023 End: 08-21-2024 CBC panel - Blood by Automated count CBC Lab Routine Diabetes mellitus screening Expected: 08/21/2023 (Approximate), Expires: 08/21/2024 [facility] Work Phone: Comment on above: Expected: 08/21/2023 (Approximate), Expires: 08/21/2024 Start: 08-21-2023 End: 08-21-2024 Measurement of glucose 1 hour after glucose challenge for glucose tolerance test Glucose tolerance, 1 hour Lab Routine Diabetes mellitus screening Expected: 08/21/2023 (Approximate), Expires: 08/21/2024 [facility] Comment on above: Expected: 08/21/2023 (Approximate), Expires: 08/21/2024 Start: 03-14-2023 Influenza vaccination Influenza Vacc ine [facility] Start: 2021 Screening for malign ant neoplasm of cervix Pap Smear [facility] Start: 2019 DTaP,Tdap and Td Vaccines (1 - Tdap) DTaP,Tdap and Td Vaccines (1 - Tdap) [facility] Start: 2018 Adult BMI Follow Up Plan Adult BMI Follow Up Plan [facility] Start: 2018 Adult BMI Screening Adult BMI Screen ing [facility] Start: 2012 Depression Screening Depression Scre ening [facility] Start: 2012 Tobacco Screening Tobacco Screening [facility] Immunizations Immunization Date Immunization Notes Care Provider Fa cility 06-03-2013 influenza virus vaccine, unspecified formulation Marielena Hernandez MD Work Phone: [facility] Payers Date Payer Category Payer Medicaid [id number] 2022 Medicaid [id number] 2022 Medicaid [id number] 2000 Unknown [id number] 2.16.84 0.1.648728.3.579.2.593 2000 Unknown [id number] 2.16.84 0.1.396980.3.579.2.593 2000 Unknown [id number] 2.16.84 0.1.322016.3.579.2.593 2000 Unknown [id number] 2.16.84 0.1.238489.3.579.2.593 2000 Unknown [id number] 2.16.84 0.1.197962.3.579.2.593 2000 Unknown [id number] 2.16.84 0.1.328314.3.579.2.593 2000 Unknown [id number] 2.16.84 0.1.057510.3.579.2.593 2000 Unknown [id number] 2.16.8 40.1.326684.3.579.2.1286 2000 Unknown [id number] 2.16.8 40.1.822672.3.579.2.1286 2000 Unknown [id number] 2.16.84 0.1.262945.3.579.2.1259 2000 Unknown [id number] 2.16.84 0.1.802774.3.579.2.1259 2000 Unknown [id number] 2.16.84 0.1.795749.3.579.2.1259 2000 Unknown [id number] 2.16.84 0.1.248706.3.579.2.1259 2000 Unknown [id number] 2.16.84 0.1.690072.3.579.2.1259 2000 Unknown [id number] 2.16.84 0.1.924063.3.579.2.1259 2000 Unknown [id number] 2.16.84 0.1.105702.3.579.2.1259 2000 Unknown [id number] 2.16.84 0.1.946615.3.579.2.1259 2000 Unknown [id number] 2.16.840 .1.742262.3.579.2.1259 1959 Unknown [id number] Social History Date Type Detail Facility Start: 04-08-2017 End: 09-03-2023 Tobacco smoking status NHIS Never smoked tobacco [facility] Start: 04-08-2017 End: 09-03-2023 Tobacco use and exposure Smokeless tobacco non-user [facility] Start: 08-20-2023 End: 09-03-2023 Alcohol intake Current non-drinker of alcohol (finding) [facility] Start: 08-24-2020 End: 08-20-2023 History of Social function [facility] Start: 08-24-2020 End: 08-20-2023 Tobacco use panel [facility] Child[facility] Unknown [facility] Start: 04-14-2023 [facility] Start: 2000 Sex Assigned At Not on file P [facility] Start: 06-13-2023 Gender identity Identifies as [...] Yes Have you been seen here at [facility] in a previous ? No Recent ER visits or hospitalizations? No Bring blood sugar log or meter with you today? 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 Patient does have ultrasound and office [...] patient/family/caregiver Referring and communicating with other health hearing healthcare practitioner (not separately reported) Documenting clinical information in the electronic or other health record Marielena Hernandez MD [facility] [id number] [facility] 1[address] [place] [address] [facility], the CDC, and other organizations representing maternal and public health professionals recommend that , , and lactating people and those considering receive the COVID-19 vaccination. Vaccination is the best method to reduce maternal and complications of SARS-CoV-2 infection. This document was created with [employer] technology. Though I make every effort to review the dictation as it is transcribed, on occasion the spoken word can be misinterpreted by the technology leading to inappropriate words, phrases, or sentences. This note is addressed to the requesting provider as a consultation for clinical guidance. Specific medical abbreviations are occasionally used and those are generally approved by the [place]?Board of?Obstetrics and?Gynecology?as well as?Terrance grimm abbreviations. The above plan of care was based solely on the diagnoses for which a consultation was requested. ?More frequent testing may be indicated based on her other medical/obstetrical conditions. The management of other or medical conditions is beyond the scope of requested consultation and will continue to be followed by the primary drop machine operator or primary care provider. Note to [...] of the practitioner. documented in this encounter [facility] History of Present illness Narrative [...] obesity with alveolar hypoventilation affecting , antepartum ([facility]) documented in this encounter [facility] [...] and content) DATE CREATED AUTHOR 11/20/2022 [facility] DATE CREATED AUTHOR AUTHOR'S ORGANIZ ATION 09/10/2023 [facility] DATE CREATED AUTHOR AUTHOR'S ORGANIZ ATION 12/06/2023 [facility] EPIC Reason for [...] BE BASED ON THE PRIMARY CLINICAL RECORDS. [facility] [employer] provides no warranty or guarantee of the accuracy or completeness of information in this document.
== END 2023-12-11 19:12 | disposition home or self-care (01) ==
LOC: LAB 19:11
PROVIDERS: PCP Nurse Practitioner Primary Care; Visit Provider Obstetrics & Gynecology
DX: Z34.93 Encounter for supervision of normal pregnancy, unspecified, third trimester (principal)
CPT/HCPCS: 87081; 87150; 87186

== ENCOUNTER 2023-12-13 07:20 | Outpatient (OUT) | payer MEDICAID, SELFPAY ==
--- OUTSIDE RECORDS SUMMARY | 2023-12-13 00:04 | XMS_ITS | CCD ---
Author Organization [facility] CliniSyfl Care Team Providers Care Windows Server Architect Name Role Phone PAULO ., DR GRIGGS [...] TRISHA Attending Unavailable DANO, LEA Attending Unavailable Medications Current Medications Medication Drug [...] UA Negative Negative - 4(70) +++ mg/dL [facility] Blood, UA Negative Negative - 50 Francis/mcL [facility] Clarity, UA Clear [facility] Color, UA Yellow [facility] Glucose, UA Negative Negative - 1999(110) ++++ mg/dL [facility] Interpretation and review of laboratory results Abnormal [facility] Ketones, UA Negative Negative - 160(16) ++++ mg/dL [facility] Leukocytes, UA Negative Negative - 500+++ Shravan/mcL [facility] Nitrite, UA Negative Negative - Positive [facility] pH, UA 6.0 5 - [address] [facility] Protein, UA Trace Negative - 1999(20) ++++ mg/dL [facility] Spec Grav, UA 1.030 1 - 1.[address] [facility] Urobilinogen, UA 0.2 0.2 - 12 mg/dL [facility] AFP Single Marker Ralph Noble rnal, Serumon 07-26-2023 Ms Alpha-Fetoprotein Negative [facility] [place][note 2] Free Cell DNAon 2022 Free Cell Dna LOW RISK [facility] CBC without diffon Hematocrit (Bld) [Volume fraction] 38.7 % [facility] Hemoglobin (Bld) [Mass/Vol] 12.0 g/dL [facility] Platelets (Bld) [#/Vol] 365 10*3/uL [facility] HIV 1&2 AB/AG Screen (P24 AG )on 06-20-2023 HIV 1&2 AB/AG Non-Reactive [facility] Hepatitis B surface antigeno n 06-20-2023 Hepatitis B Surface Antigen Negative [facility] Hepatitis C(HCV) Ab w/ Refle x to PCRon 06-20-2023 HCV Ab Ql (S) Non-Reactive [facility] No Panel InformationOrdered By: Nicky Miles on 06-20-2023 [facility] Rubella IGG immune statuson 06-20-2023 Rubella immune IgG 2.[address] [facility] Syphilis Total(Unknown Syphi lis Status)Ordered By: Nicky Miles on 06-20-2023 Syphilis Non-Reactive [facility] TSHon 06-20-2023 Thyroid Stimulating (3Rd Generation) Hormone/ Tsh 0.708 [facility] PAP ACOG PANEL 2: 21 to 29on 11-20-2022 . . Normal [facility] Comment on above: Performed By: #### [id number] #### [facility] [address] [place] [address] Dr. Homero Damon Age Gdln ACOG Testing - Normal [facility] Comment on above: Performed By: #### [id number] #### [facility] [address] [place] [address] Dr. Homero Damon DIAGNOSIS: Comment Normal [facility] Comment on above: Result Comment: NEGA TIVE FOR INTRAEPITHELIAL LESION OR MALIGNANCY. Performed By: #### [id number] #### [facility] [address] [place] [address] Dr. Homero Damon Methodology: Comment Normal [facility] Comment on above: Result Comment: This liquid based ThinPrep(R) pap test was screened with the use of an image guided system. Performed By: #### [id number] #### [facility] [address] [place] [address] Dr. Homero Damon Note: Comment Normal [facility] Comment on above: Result Comment: The Pap smear is a screening test designed to aid in the detection of premalignant and malignant conditions of the uterine cervix. It is not a diagnostic procedure and should not be used as the sole means of detecting cervical cancer. Both false-positive and false-negative reports do occur. . Performed By: #### [id number] #### [facility] [address] [place] [address] Dr. Homero Damon Performed by: Comment Normal [facility] Comment on above: Result Comment: Haris Alexis, Financial Operations Clerk (ASCP) Performed By: #### [id number] #### [facility] [address] [place] [address] Dr. Homero Damon Reflex Criteria: Comment Normal [facility] Comment on above: Result Comment: The HPV DNA reflex criteria were not met with this specimen result therefore, no HPV testing was performed. . Performed By: #### [id number] #### [facility] [address] [place] [address] Dr. Homero Damon Specimen adequacy: Comment Normal [facility] Comment on above: Result Comment: Sati sfactory for evaluation. Endocervical and/or squamous metaplastic cells (endocervical component) are present. Performed By: #### [id number] #### [facility] [address] [place] [address] Dr. Homero Damon CANNABINOID (THC) CONFIRMATI ON, URINEon 03-19-2022 Cannabinoid Positive Abnormal [facility] Comment on above: Performed By: #### T HCCONF #### [facility] [address] [address] [address] Homero Damon Carboxy THC GC/MS Conf 47 ng/mL Normal Cutoff=10 Th e [facility] Comment on above: Performed By: #### T HCCONF #### [facility] [address] [address] [address] Homero Damon CBC AUTO DIFFon 03-15-2022 BASO # 0.0 103/ul Normal 0.0-0.1 [facility] Comment on above: Performed By: #### C BC #### [facility] [address] [address] [address] Homero Damon Basophils/100 WBC (Bld) 0.2 % Normal 0.2-2.0 [facility] Comment on above: Performed By: #### C BC #### [facility] [address] [place] [address] Dr. Homero Damon EO # 0.2 103/ul Normal 0.0-0.7 [facility] Comment on above: Performed By: #### C BC #### [facility] [address] [place] [address] Dr. Homero Damon Eosinophils/100 WBC (Bld) 1.5 % Normal 0.9-7.0 [facility] Comment on above: Performed By: #### C BC #### [facility] [address] [place] [address] Dr. Homero Damon Erythrocyte distribution width (RBC) [Ratio] 16.1 % Critically high 11.0-15.0 [facility] Comment on above: Performed By: #### C BC #### [facility] [address] [place] [address] Dr. Homero Damon Hematocrit (Bld) [Volume fraction] 32.7 % Critically low 36.0-48.0 [facility] Comment on above: Performed By: #### C BC #### [facility] [address] [place] [address] Dr. Homero Damon Hemoglobin (Bld) [Mass/Vol] 9.7 g/dL Critically low 12.0-16.0 [facility] Comment on above: Performed By: #### C BC #### [facility] [address] [address] [address] Homero Damon IG # 0.04 10e3/ul Critically high 0.00-0.03 [facility] Comment on above: Performed By: #### C BC #### [facility] [address] [address] [address] Homero Damon IG % 0.4 % Normal 0.0-0.5 [facility] Comment on above: Performed By: #### C BC #### [facility] [address] [address] [address] Homero Damon LYMPH # 3.5 103/ul Normal 1.2-3.8 [facility] Comment on above: Performed By: #### C BC #### [facility] [address] [place] [address] Dr. Homero Damon Lymphocytes/100 WBC (Bld) 32.9 % Normal 20.5-60.0 [facility] Comment on above: Performed By: #### C BC #### [facility] [address] [place] [address] Dr. Homero Damon MANUAL DIFF REQ NO Normal [facility] Comment on above: Performed By: #### C BC #### [facility] [address] [place] [address] Dr. Homero Damon MCH (RBC) [Entitic mass] 23.0 pg Critically low 26.7-34.0 [facility] Comment on above: Performed By: #### C BC #### [facility] [address] [place] [address] Dr. Homero Damon MCHC (RBC) [Mass/Vol] 29.7 g/dL Critically low 29.9-35.2 [facility] Comment on above: Performed By: #### C BC #### [facility] [address] [place] [address] Dr. Homero Damon MCV (RBC) [Entitic vol] 77.7 fL Critically low 81.0-99.0 [facility] Comment on above: Performed By: #### C BC #### [facility] [address] [address] [address] Homero Damon MONO # 0.8 103/ul Normal 0.3-0.8 [facility] Comment on above: Performed By: #### C BC #### [facility] [address] [address] [address] Homero Damon Monocytes/100 WBC (Bld) 7.1 % Normal 1.7-12.0 [facility] Comment on above: Performed By: #### C BC #### [facility] [address] [address] [address] Homero Damon NEUT # 6.1 103/ul Normal 1.4-6.5 [facility] Comment on above: Performed By: #### C BC #### [facility] [address] [place] [address] Dr. Homero Damon Neutrophils/100 WBC (Bld) 57.9 % Normal 43.0-75.0 [facility] Comment on above: Performed By: #### C BC #### [facility] [address] [place] [address] Dr. Homero Damon Platelet mean volume (Bld) [Entitic vol] 11.0 fL Normal 9.5-13.5 [facility] Comment on above: Performed By: #### C BC #### [facility] [address] [place] [address] Dr. Homero Damon PLT 253 103/ul Normal 150-450 [facility] Comment on above: Performed By: #### C BC #### [facility] [address] [place] [address] Dr. Homero Damon RBC 4.21 106/ul Normal 4.20-5.40 [facility] Comment on above: Performed By: #### C BC #### [facility] [address] [place] [address] Dr. Homero Damon WBC 10.6 103/ul Normal 4.0-11.0 [facility] Comment on above: Performed By: #### C BC #### [facility] [address] [address] [address] Homero Damon CBC AUTO DIFFon 03-13-2022 BASO # 0.0 103/ul Normal 0.0-0.1 [facility] Comment on above: Performed By: #### T HCCONF #### [facility] [address] [place] [address] Dr. Homero Damon Basophils/100 WBC (Bld) 0.3 % Normal 0.2-2.0 [facility] Comment on above: Performed By: #### T HCCONF #### [facility] [address] [place] [address] Dr. Homero Damon EO # 0.0 103/ul Normal 0.0-0.7 [facility] Comment on above: Performed By: #### T HCCONF #### [facility] [address] [place] [address] Dr. Homero Damon Eosinophils/100 WBC (Bld) 0.2 % Critically low 0.9-7.0 [facility] Comment on above: Performed By: #### T HCCONF #### [facility] [address] [place] [address] Dr. Homero Damon Erythrocyte distribution width (RBC) [Ratio] 16.0 % Critically high 11.0-15.0 [facility] Comment on above: Performed By: #### T HCCONF #### [facility] [address] [place] [address] Dr. Homero Damon Hematocrit (Bld) [Volume fraction] 35.3 % Critically low 36.0-48.0 [facility] Comment on above: Performed By: #### T HCCONF #### [facility] [address] [place] [address] Dr. Homero Damon Hemoglobin (Bld) [Mass/Vol] 11.0 g/dL Critically low 12.0-16.0 [facility] Comment on above: Performed By: #### T HCCONF #### [facility] [address] [place] [address] Dr. Homero Damon IG # 0.04 10e3/ul Critically high 0.00-0.03 [facility] Comment on above: Performed By: #### T HCCONF #### [facility] [address] [address] [address] Homero Damon IG % 0.4 % Normal 0.0-0.5 [facility] Comment on above: Performed By: #### T HCCONF #### [facility] [address] [address] [address] Homero Damon LYMPH # 2.5 103/ul Normal 1.2-3.8 [facility] Comment on above: Performed By: #### T HCCONF #### [facility] [address] [address] [address] Homero Damon Lymphocytes/100 WBC (Bld) 26.4 % Normal 20.5-60.0 [facility] Comment on above: Performed By: #### T HCCONF #### [facility] [address] [address] [address] Homero Damon MANUAL DIFF REQ NO Normal [facility] Comment on above: Performed By: #### T HCCONF #### [facility] [address] [address] [address] Homero Damon MCH (RBC) [Entitic mass] 23.5 pg Critically low 26.7-34.0 [facility] Comment on above: Performed By: #### T HCCONF #### [facility] [address] [address] [address] Homero Damon MCHC (RBC) [Mass/Vol] 31.2 g/dL Normal 29.9-35.2 [facility] Comment on above: Performed By: #### T HCCONF #### [facility] [address] [address] [address] Homero Damon MCV (RBC) [Entitic vol] 75.4 fL Critically low 81.0-99.0 [facility] Comment on above: Performed By: #### T HCCONF #### [facility] [address] [address] [address] Homero Damon MONO # 0.6 103/ul Normal 0.3-0.8 [facility] Comment on above: Performed By: #### T HCCONF #### [facility] [address] [place] [address] Dr. Homero Damon Monocytes/100 WBC (Bld) 6.4 % Normal 1.7-12.0 [facility] Comment on above: Performed By: #### T HCCONF #### [facility] [address] [place] [address] Dr. Homero Damon NEUT # 6.4 103/ul Normal 1.4-6.5 [facility] Comment on above: Performed By: #### T HCCONF #### [facility] [address] [place] [address] Dr. Homero Damon Neutrophils/100 WBC (Bld) 66.3 % Normal 43.0-75.0 [facility] Comment on above: Performed By: #### T HCCONF #### [facility] [address] [place] [address] Dr. Homero Damon Platelet mean volume (Bld) [Entitic vol] 11.0 fL Normal 9.5-13.5 [facility] Comment on above: Performed By: #### T HCCONF #### [facility] [address] [place] [address] Dr. Homero Damon PLT 312 103/ul Normal 150-450 [facility] Comment on above: Performed By: #### T HCCONF #### [facility] [address] [place] [address] Dr. Homero Damon RBC 4.68 106/ul Normal 4.20-5.40 [facility] Comment on above: Performed By: #### T HCCONF #### [facility] [address] [place] [address] Dr. Homero Damon WBC 9.6 103/ul Normal 4.0-11.0 [facility] Comment on above: Performed By: #### T HCCONF #### [facility] [address] [place] [address] Dr. Homero Damon Covid-19 PCR ([facility])on 02-13 SARS-CoV-2 (COVID-19) RNA LORRAINE+probe Ql (Unsp spec) Not detected Normal NOT DETECTED [facility] Comment on above: Result Comment: When [...] for this test is supported by the [place] of [employer] and Human Service's declaration that [...] used). Performed By: #### C VDTBH #### [facility] [address] [place] [address] Dr. Homero Damon DRUG SCREEN RAPID (URINE)on 03-13-2022 AMP Negative Normal NEGATIVE [facility] Comment on above: Performed By: #### D RUGRPD #### [facility] [address] [place] [address] Dr. Homero Damon BAR Negative Normal NEGATIVE [facility] Comment on above: Performed By: #### D RUGRPD #### [facility] [address] [place] [address] Dr. Homero Damon BUP Negative Normal NEGATIVE [facility] Comment on above: Performed By: #### D RUGRPD #### [facility] [address] [place] [address] Dr. Homero Damon BZO Negative Normal NEGATIVE [facility] Comment on above: Performed By: #### D RUGRPD #### [facility] [address] [place] [address] Dr. Homero Damon MADHURI Negative Normal NEGATIVE [facility] Comment on above: Performed By: #### D RUGRPD #### [facility] [address] [place] [address] Dr. Homero Damon CUT-OFFS SEE BELOW Normal [facility] Comment on above: Result Comment: [...] ng/mL Performed By: #### D RUGRPD #### [facility] [address] [place] [address] Dr. Homero Damon DRUG CUT HEADER DRUG CLASS TEST SYSTEM CUT-OFF CONCENTRATIONS ARE FOLLOWS: Normal [facility] Comment on above: Performed By: #### D RUGRPD #### [facility] [address] [place] [address] Dr. Homero Damon mAMP Negative Normal NEGATIVE [facility] Comment on above: Performed By: #### D RUGRPD #### [facility] [address] [place] [address] Dr. Homero Damon MTD Negative Normal NEGATIVE [facility] Comment on above: Performed By: #### D RUGRPD #### [facility] [address] [place] [address] Dr. Homero Damon OPI Negative Normal NEGATIVE [facility] Comment on above: Performed By: #### D RUGRPD #### [facility] [address] [place] [address] Dr. Homero Damon OXY Negative Normal NEGATIVE [facility] Comment on above: Performed By: #### D RUGRPD #### [facility] [address] [place] [address] Dr. Homero Damon PCP Negative Normal NEGATIVE [facility] Comment on above: Performed By: #### D RUGRPD #### [facility] [address] [place] [address] Dr. Homero Damon PPX Negative Normal NEGATIVE [facility] Comment on above: Performed By: #### D RUGRPD #### [facility] [address] [place] [address] Dr. Homero Damon TCA Negative Normal NEGATIVE [facility] Comment on above: Performed By: #### D RUGRPD #### [facility] [address] [place] [address] Dr. Homero Damon THC Positive Abnormal NEGATIVE [facility] Comment on above: Performed By: #### D RUGRPD #### [facility] [address] [place] [address] Dr. Homero Damon TYPE AND SCREENon 03-13-2022 TYPE AND SCREEN Negative Normal [facility] Comment on above: Performed By: #### T HCCONF #### [facility] [address] [place] [address] Dr. Homero Damon UA (CLEAN/CATCH) DIESEL CRANE OPERATOR/MICRO I F IND.on 03-10-2022 Bilirubin Ql (U) Negative Normal NEGATIVE [facility] Comment on above: Performed By: #### U ACSIND #### [facility] [address] [place] [address] Dr. Homero Damon Clarity (U) CLEAR Normal CLEAR [facility] Comment on above: Performed By: #### U ACSIND #### [facility] [address] [place] [address] Dr. Homero Damon Color (U) YELLOW Normal YELLOW [facility] Comment on above: Performed By: #### U ACSIND #### [facility] [address] [place] [address] Dr. Homero Damon Glucose Ql (U) Negative Normal NEGATIVE [facility] Comment on above: Performed By: #### U ACSIND #### [facility] [address] [place] [address] Dr. Homero Damon Hemoglobin Ql (U) Negative Normal NEGATIVE [facility] Comment on above: Performed By: #### U ACSIND #### [facility] [address] [address] [address] Homero Damon Ketones Ql (U) Negative Normal NEGATIVE [facility] Comment on above: Performed By: #### U ACSIND #### [facility] [address] [place] [address] Dr. Homero Damon LEUKOCYTES Negative Normal NEGATIVE [facility] Comment on above: Performed By: #### U ACSIND #### [facility] [address] [address] [address] Homero Damon Nitrite Ql (U) Negative Normal NEGATIVE [facility] Comment on above: Performed By: #### U ACSIND #### [facility] [address] [place] [address] Dr. Homero Damon pH (U) 6.0 [pH] Normal 5-9 [facility] Comment on above: Performed By: #### U ACSIND #### [facility] [address] [place] [address] Dr. Homero Damon SPEC GRAVITY 1.025 Normal 1.005-<=1.025 [facility] Comment on above: Performed By: #### U ACSIND #### [facility] [address] [place] [address] Dr. Homero Damon UA PROTEIN Negative Normal NEGATIVE/ TRACE [facility] Comment on above: Performed By: #### U ACSIND #### [facility] [address] [place] [address] Dr. Homero Damon UR MICRO IND NOT INDICATED Normal [facility] Comment on above: Performed By: #### U ACSIND #### [facility] [address] [place] [address] Dr. Homero Damon Urobilinogen Qn (U) 1.0 {Saad'U}/dL Normal 0.2 - 1. 0 [facility] Comment on above: Performed By: #### U ACSIND #### [facility] [address] [place] [address] Dr. Homero Damon GROUP B STREP CULTUREon 02-11 S. agalactiae Ag Ql (Unsp spec) Culture Observations: Called Group B Strep to Millie Armando, Lithograph Designer on 02/25 @ 7399 Isolate 1 Streptococcus agalactiae Moderate growth of ORGANISM 1 Streptococcus agalactiae ANTIBIOTIC M.I.C RX STATUS Benzylpenicillin <=0.06 S F Ampicillin <=0.25 S F Cefotaxime <=0.12 S F Ceftriaxone <=0.12 S F Levofloxacin 0.5 S F Erythromycin >=8 R F Clindamycin >=1 R F Linezolid <=2 S F Vancomycin 0.5 S F Tetracycline >=16 R F Normal [facility] Comment on above: Performed By: #### T HCCONF #### [facility] [address] [place] [address] Dr. Homero Damon CULTURE URINEon 02-23-2022 CULTURE [...] Trimethoprim/Sulfame thoxazole <=20 S F Normal [facility] Comment on above: Performed By: #### U RCX #### [facility] [address] [place] [address] Dr. Homero Damon UA RANDOM W/MICROSCOPICon BACTERIA LARGE Abnormal NONE SEEN [facility] Comment on above: Performed By: #### U AMIC #### [facility] [address] [place] [address] Dr. Homero Damon Bilirubin Ql (U) Negative Normal NEGATIVE [facility] Comment on above: Performed By: #### U AMIC #### [facility] [address] [place] [address] Dr. Homero Damon CAST NONE SEEN Normal NONE SEEN [facility] Comment on above: Performed By: #### U AMIC #### [facility] [address] [address] [address] Homero Damon Clarity (U) CLEAR Normal CLEAR [facility] Comment on above: Performed By: #### U AMIC #### [facility] [address] [address] [address] Homero Damon Color (U) LT. YELLOW Normal YELLOW [facility] Comment on above: Performed By: #### U AMIC #### [facility] [address] [address] [address] Homero Damon Crystals LM Nom (Urine sed) NONE SEEN Normal NONE SEEN [facility] Comment on above: Performed By: #### U AMIC #### [facility] Laboratory [address] [place] [address] Dr. Homero Damon Epithelial cells LM Ql (Urine sed) FEW Abnormal NONE SEEN /RARE The [facility] Comment on above: Performed By: #### U AMIC #### [facility] Laboratory [address] [address] [address] Homero Damon Glucose Ql (U) Negative Normal NEGATIVE The [facility] Comment on above: Performed By: #### U AMIC #### [facility] Laboratory [address] [place] [address] Dr. Homero Damon Hemoglobin Ql (U) Negative Normal NEGATIVE The [facility] Comment on above: Performed By: #### U AMIC #### [facility] Laboratory [address] [address] [address] Homero Damon Ketones Ql (U) TRACE Abnormal NEGATIVE [facility] Comment on above: Performed By: #### U AMIC #### [facility] Laboratory [address] [address] [address] Homero Damon LEUKOCYTES TRACE Abnormal NEGATIVE [facility] Comment on above: Performed By: #### U AMIC #### [facility] Laboratory [address] [place] [address] Dr. Homero Damon MUCOUS NONE SEEN Normal NONE SEEN [facility] Comment on above: Performed By: #### U AMIC #### [facility] [address] [place] [address] Dr. Homero Damon Nitrite Ql (U) Negative Normal NEGATIVE [facility] Comment on above: Performed By: #### U AMIC #### [facility] Laboratory [address] [place] [address] Dr. Homero Damon pH (U) 6.0 [pH] Normal 5-9 [facility] Comment on above: Performed By: #### U AMIC #### [facility] [address] [place] [address] Dr. Homero Damon RBC NONE SEEN Abnormal 0-2 [facility] Comment on above: Performed By: #### U AMIC #### [facility] [address] [place] [address] Dr. Homero Damon SPEC GRAVITY 1.025 Normal 1.005-<=1.025 [facility] Comment on above: Performed By: #### U AMIC #### [facility] Laboratory [address] [place] [address] Dr. Homero Damon UA PROTEIN Negative Normal NEGATIVE/ TRACE [facility] Comment on above: Performed By: #### U AMIC #### [facility] Laboratory [address] [place] [address] Dr. Homero Damon Urobilinogen Qn (U) 0.2 {Saad'U}/dL Normal 0.2 - 1. 0 [facility] Comment on above: Performed By: #### U AMIC #### [facility] Laboratory [address] [place] [address] Dr. Homero Damon WBC 5-10 Abnormal NONE SEEN [facility] Comment on above: Performed By: #### U AMIC #### [facility] Laboratory [address] [place] [address] Dr. Homero Damon GLUCOSE - 1HRon 12-12-2021 Glucose [Mass/Vol] 128 mg/dL Critically high 74-106 T [facility] Comment on above: Performed By: #### G LU1HR #### [facility] Laboratory [address] [place] [address] Dr. Homero Damon HEMOGRAM AND PLATELon 2021 Hematocrit (Bld) [Volume fraction] 38.8 % Normal 36.0-48.0 [facility] Comment on above: Performed By: #### H H #### [facility] Laboratory [address] [place] [address] Dr. Homero Damon Hemoglobin (Bld) [Mass/Vol] 12.3 g/dL Normal 12.0-16.0 [facility] Comment on above: Performed By: #### H H #### [facility] Laboratory [address] [place] [address] Dr. Homero Damon MCH (RBC) [Entitic mass] 25.8 pg Critically low 26.7-34.0 [facility] Comment on above: Performed By: #### H H #### [facility] [address] [place] [address] Dr. Homero Damon MCHC (RBC) [Mass/Vol] 31.7 g/dL Normal 29.9-35.2 [facility] Comment on above: Performed By: #### H H #### [facility] Laboratory [address] [place] [address] Dr. Homero Damon MCV (RBC) [Entitic vol] 81.3 fL Normal 81.0-99.0 [facility] Comment on above: Performed By: #### H H #### [facility] Laboratory [address] [place] [address] Dr. Homero Damon PLT 304 103/ul Normal 150-450 [facility] Comment on above: Performed By: #### H H #### [facility] [address] [place] [address] Dr. Homero Damon RBC 4.77 106/ul Normal 4.20-5.40 [facility] Comment on above: Performed By: #### H H #### [facility] [address] [place] [address] Dr. Homero Damon WBC 9.9 103/ul Normal 4.0-11.0 [facility] Comment on above: Performed By: #### H H #### [facility] [address] [place] [address] Dr. Homero Damon CULTURE URINEon 12-06-2021 CULTURE [...] F Trimethoprim/Sulfame thoxazole <=20 S F Normal [facility] Comment on above: Performed By: #### [facility] #### [facility] [address] [place] [address] Dr. Homero Damon Vital Signs Date Time Vital Sign Value Performing Clinician Faci lity 09-03-2023 10:39-0500 Body height 160 cm Marielena Hernandez MD Work Phone: [facility] 09-03-2023 10:39-0500 Body mass index (BMI) [Ratio] 41.45 kg/m2 Marielena Hernandez MD Work Phone: [facility] 09-03-2023 10:39-0500 Body weight 106.14 kg Marielena Hernandez MD Work Phone: [facility] 09-03-2023 10:39-0500 Diastolic blood pressure 88 mm[Hg] Marielena Hernandez MD Work Phone: [facility] 09-03-2023 10:39-0500 Heart rate 98 /min Marielena Hernandez MD Work Phone: [facility] 09-03-2023 10:39-0500 Systolic blood pressure 123 mm[Hg] Marielena Hernandez MD Work Phone: [facility] 08-21-2023 10:31-0500 Body mass index (BMI) [Ratio] 43.48 kg/m2 Trisha CASTELLANOS Work Phone: [facility] 08-21-2023 10:31-0500 Body weight 104.38 kg Trisha CASTELLANOS Work Phone: [facility] 08-21-2023 10:31-0500 Diastolic blood pressure 60 mm[Hg] Trisha CASTELLANOS Work Phone: [facility] 08-21-2023 10:31-0500 Systolic blood pressure 118 mm[Hg] Trisha CASTELLANOS Work Phone: [facility] Encounters Encounter Date Encounter Type Care Provider Facility Start: 12-11-2023 End: 12-11-2023 ambulatory LEA DANO Not Available Start: 12-04-2023 End: 12-04-2023 ambulatory TRISHA BRYON Not Available Start: 11-27-2023 End: 11-27-2023 ambulatory LEA DANO Not Available Start: 11-13-2023 End: 11-13-2023 ambulatory TRISHA BRYON Not Available Start: 10-30-2023 End: 10-30-2023 ambulatory LEA DANO Not Available Start: 10-15-2023 End: 10-15-2023 ambulatory TRISHA BRYON Not Available Start: 09-17-2023 End: 09-17-2023 ambulatory LEA DANO Not Available Start: 09-03-2023 End: 09-03[facility] Start: 09-03-2023 End: 09-03-2023 Office outpatient visit 10 minutes Marielena Hernandez MD Work Phone: [facility] Comment on above: 22 weeks gestation o f (Primary Dx); Severe obesity with alveolar hypoventilation affecting , antepartum ([facility]) Start: 08-21-2023 End: 08-21-2023 ambulatory TRISHA BRYON Not Available Start: 08-21-2023 End: 08-21-2023 Office outpatient visit 15 minutes Trisha CASTELLANOS Work Phone: [facility] Comment on above: Second trimester pre gnancy; Diabetes mellitus screening Start: 08-20-2023 Chart abstracting Marielena Hernandez MD Work Phone: [facility] Start: 07-23-2023 End: 07-23-2023 ambulatory LEA DANO [...] Td Vaccines (8 - Td or Tdap) [facility] Start: 09-17-2023 End: 09-17-2023 Patient encounter procedure 09/17/2023 10:50 AM EST Routine [facility] [address] [place] [id number] Lea Cole, DO [address] [place] [address] [facility] Start: 09-03-2023 End: 09-03-2023 Patient encounter procedure [facility] Start: 08-21-2023 End: 08-21-2024 CBC [...] mellitus screening Expected: 08/21/2023 (Approximate), Expires: 08/21/[address] [facility] Comment on above: Expected: 08/21/2023 (Approximate), Expires: 08/21/2024 Start: 03-14-2023 Influenza vaccination Influenza Vacc ine [facility] Start: 2021 Screening for malign ant neoplasm of cervix Pap Smear [facility] Start: 2019 DTaP,Tdap and Td Vaccines (1 - Tdap) DTaP,Tdap and Td Vaccines (1 - Tdap) [facility] Start: 2018 Adult BMI Follow Up Plan Adult BMI Follow Up Plan [facility] Start: 2018 Adult BMI Screening Adult BMI Screen ing [facility] Start: 2012 Depression Screening Depression Scre ening [facility] Start: 2012 Tobacco Screening Tobacco Screening [facility] Immunizations Immunization Date Immunization Notes Care Provider Fa kusum 06-03-2013 influenza virus vaccine, unspecified formulation Marielena Hernandez MD Work Phone: [facility] Payers Date Payer Category Payer Medicaid [id number] 2022 Medicaid [id number] 2022 Medicaid [id number] 2000 Unknown [id number] 2.16.84 0.1.033916.3.579.2.593 2000 Unknown [id number] 2.16.84 0.1.644951.3.579.2.593 2000 Unknown [id number] 2.16.84 0.1.364359.3.579.2.593 2000 Unknown [id number] 2.16.84 0.1.013072.3.579.2.593 2000 Unknown [id number] 2.16.84 0.1.729375.3.579.2.593 2000 Unknown [id number] 2.16.84 0.1.070935.3.579.2.593 2000 Unknown [id number] 2.16.84 0.1.628828.3.579.2.593 2000 Unknown [id number] 2.16.8 40.1.043437.3.579.2.1286 2000 Unknown [id number] 2.16.8 40.1.614914.3.579.2.1286 2000 Unknown [id number] 2.16.84 0.1.367715.3.579.2.1259 2000 Unknown [id number] 2.16.84 0.1.619678.3.579.2.1259 2000 Unknown [id number] 2.16.84 0.1.629399.3.579.2.1259 2000 Unknown [id number] 2.16.84 0.1.927825.3.579.2.1259 2000 Unknown [id number] 2.16.84 0.1.441687.3.579.2.1259 2000 Unknown [id number] 2.16.84 0.1.459521.3.579.2.9 2000 Unknown [id number] 2.16.84 0.1.028072.3.579.2.1259 2000 Unknown [id number] 2.16.84 0.1.955580.3.579.2.1259 2000 Unknown [id number] 2.16.84 0.1.677586.3.579.2.1259 2000 Unknown [id number] 2.16.840 .1.970591.3.579.2.1259 1959 Unknown [id number] Social History Date Type Detail Facility Start: 04-08-2017 End: 09-03-2023 Tobacco smoking status NHIS Never smoked tobacco [facility] Start: 04-08-2017 End: 09-03-2023 Tobacco use and exposure Smokeless tobacco non-user [facility] Start: 08-20-2023 End: 09-03-2023 Alcohol intake Current non-drinker of alcohol (finding) [facility] Start: 08-24-2020 End: 08-20-2023 History of Social function [facility] Start: 08-24-2020 End: 08-20-2023 Tobacco use panel [facility] Childcare Unknown [facility] Start: 04-14-2023 [facility] Start: 2000 Sex Assigned At Not on file P [facility] Start: 06-13-2023 Gender identity Identifies as female [...] Yes Have you been seen here at [facility] in a previous ? No Recent ER visits or hospitalizations? No Bring blood sugar log or meter with you today? 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 Patient does have ultrasound and office [...] Referring and communicating with other health care transitions nurse (not separately reported) Documenting clinical information in the electronic or other health record Marielena Hernandez MD [facility] [address] [facility] [address] [place] [address] [facility], the CDC, and other organizations representing maternal and public health professionals recommend that , , and lactating people and those considering receive the COVID-19 vaccination. Vaccination is the best method to reduce maternal and complications of SARS-CoV-2 infection. This document was created with [employer] technology. Though I make every effort to review the dictation as it is transcribed, on occasion the spoken word can be misinterpreted by the technology leading to inappropriate words, phrases, or sentences. This note is addressed to the requesting provider as a consultation for clinical guidance. Specific medical abbreviations are occasionally used and those are generally approved by the [place]?Board of?Obstetrics and?Gynecology?as well as?Terrance grimm abbreviations. The above plan of care was based solely on the diagnoses for which a consultation was requested. ?More frequent testing may be indicated based on her other medical/obstetrical conditions. The management of other or medical conditions is beyond the scope of requested consultation and will continue to be followed by the primary logging equipment operator or primary care provider. Note to [...] of the practitioner. documented in this encounter [facility] History of Present illness Narrative 08-21-2023 EMANUEL [...] obesity with alveolar hypoventilation affecting , antepartum ([facility]) [facility] this [facility] Instructions Note Date & Type Note [...] [facility] DATE CREATED AUTHOR AUTHOR'S ORGANIZ ATION 12/12/2023 [facility] EPIC Reason for Visit [...] BE BASED ON THE PRIMARY CLINICAL RECORDS. [email or web address] provides no warranty or guarantee of the accuracy or completeness of information in this document.
--- OUTSIDE RECORDS SUMMARY | 2023-12-13 08:08 | XMS_ITS ---
Patient Summarization (C-CDA 2.1 CCD) Created on: December 13, 2023 JULIETTE CARLSON~LENY ANDREWS : 2000 Sex: Female Author Organization Sample organization Care Team Providers Care Lacing Presser Name Role Phone JAIMEK ., DR GRIGGS Admitting Unavailabl e HOY [...] HERNANDEZ Attending Unavailable LEA COLE Attending Unavailable BRYON, TRISHA Attending Unavailable DANO, LEA Attending Unavailable BRYON, TRISHA Attending Unavailable DANO, LEA Attending Unavailable BRYON, TRISHA Attending Unavailable DANO, LEA Attending Unavailable BRYON, TRISHA Attending Unavailable DANO, LEA Attending Unavailable Encounters Encounter Date Encounter Type Care Provider Facility Start: 12-11-2023 End: 12-11-2023 ambulatory LEA DANO Not Available Start: 12-04-2023 End: 12-04-2023 ambulatory TRISHA BRYON Not Available Start: 11-27-2023 End: 11-27-2023 ambulatory LEA DANO Not Available Start: 11-13-2023 End: 11-13-2023 ambulatory TRISHA LIONEY Not Available Start: 10-30-2023 End: 10-30-2023 ambulatory LEA DANO Not Available Start: 10-15-2023 End: 10-15-2023 ambulatory TRISHA SLATER Not Available Start: 09-17-2023 End: 09-17-2023 ambulatory LEA DANO Not Available Start: 09-03-2023 End: 09-03-20[facility] Start: 09-03-2023 End: 09-03-2023 Office outpatient visit 10 minutes Marielena Hernandez MD Work Phone: [facility] [place] Comment on above: 22 weeks gestation o f (Primary Dx); Severe obesity with alveolar hypoventilation affecting , antepartum ([facility] Start: 08-21-2023 End: 08-21-2023 ambulatory TRISHA SLATER Not Available Start: 08-21-2023 End: 08-21-2023 Office outpatient visit 15 minutes Trisha CASTELLANOS Work Phone: [facility] Comment on above: Second trimester pre gnancy; Diabetes mellitus screening Start: 08-20-2023 Chart abstracting Marielena Hernandez MD Work Phone: [facility] Start: 07-23-2023 End: 07-23-2023 ambulatory [...] 12-04-[address] INDU BATES . Facility: Goals Date Patient Goal Desired Activity /State Personal health goal Immunizations Immunization Date Immunization Notes Care Provider Dioni noe 06-03-2013 influenza virus vaccine, unspecified formulation Marielena Hernandez MD Work Phone: [facility] Medications Current Medications Medication Drug Class(es) Dates [...] mouth daily. 28 tablet 2 08/26/2017 Active Payers Date Payer Category Payer Medicaid [id number] 2022 Medicaid [id number] 2022 Medicaid [id number] 2000 Unknown [id number] 2.16.84 0.1.047250.3.579.2.593 2000 Unknown [id number] 2.16.84 0.1.886863.3.579.2.593 2000 Unknown [id number] 2.16.84 0.1.812166.3.579.2.593 2000 Unknown [id number] 2.16.84 0.1.345291.3.579.2.593 2000 Unknown [id number] 2.16.84 0.1.577903.3.579.2.593 2000 Unknown [id number] 2.16.84 0.1.180694.3.579.2.593 2000 Unknown [id number] 2.16.84 0.1.509577.3.579.2.593 2000 Unknown [id number] 2.16.8 40.1.474949.3.579.2.1286 2000 Unknown [id number] 2.16.8 40.1.407000.3.579.2.1286 2000 Unknown [id number] 2.16.84 0.1.050419.3.579.2.1259 2000 Unknown [id number] 2.16.84 0.1.600039.3.579.2.1259 2000 Unknown [id number] 2.16.84 0.1.406962.3.579.2.9 2000 Unknown [id number] 2.16.84 0.1.215874.3.579.2.9 2000 Unknown [id number] 2.16.84 0.1.308167.3.579.2.9 2000 Unknown [id number] 2.16.84 0.1.592224.3.579.2.1259 2000 Unknown [id number] 2.16.84 0.1.876896.3.579.2.9 2000 Unknown [id number] 2.16.84 0.1.556388.3.579.2.9 2000 Unknown [id number] 2.16.84 0.1.344580.3.579.2.9 2000 Unknown [id number] 2.16.840 .1.047947.3.579.2.1259 1959 Unknown [id number] Plan of Treatment Date Care Activity Detail Author Start: 10-27-2023 DTaP,Tdap and Td Vaccines (8 - Td or Tdap) DTaP,Tdap and Td Vaccines (8 - Td or Tdap) [facility] Start: 09-17-2023 End: 09-17-2023 Patient encounter procedure 09/17/2023 10:50 AM EST Routine [facility] [address] [place] [address] [place] [address] Lea Cole, [address] [place] [address] [facility] Start: 09-03-2023 End: 09-03-2023 Patient encounter procedure [facility] Start: 08-21-2023 End: 08-21-2024 CBC panel - Blood by Automated count CBC Lab Routine Diabetes mellitus screening Expected: 08/21/2023 (Approximate), Expires: 08/21/2024 [facility] Work Phone: Comment on above: Expected: 08/21/2023 (Approximate), Expires: 08/21/2024 Start: 08-21-2023 End: 08-21-2024 Measurement of glucose 1 hour after glucose challenge for glucose tolerance test Glucose tolerance, 1 hour Lab Routine Diabetes mellitus screening Expected: 08/21/2023 (Approximate), Expires: 08/21/2024 [facility] Comment on above: Expected: 08/21/2023 (Approximate), Expires: 08/21/2024 Start: 03-14-2023 Influenza vaccination Influenza Vacc ine [facility] Start: 2021 Screening for malign ant neoplasm of cervix Pap Smear [facility] Start: 2019 DTaP,Tdap and Td Vaccines (1 - Tdap) DTaP,Tdap and Td Vaccines (1 - Tdap) [facility] Start: 2018 Adult BMI Follow Up Plan Adult BMI Follow Up Plan [facility] Start: 2018 Adult BMI Screening Adult BMI Screen ing [facility] Start: 2012 Depression Screening Depression Scre ening [facility] Start: 2012 Tobacco Screening Tobacco Screening [facility] Problems Active Problems Problem Classification Problem Date [...] (2 sources) No known active problems 08-26-2017 Procedures Date Procedure Procedure Detail Performing Clinician [...] or Artificial Opening DR INDU BATES . Results Test Name Value Interpretation Reference Range Facility Urinalysis macro (dipstick) panel (U)on 08-21-2023 Bilirubin, UA Negative Negative - 4(70) +++ mg/dL [facility] Blood, UA Negative Negative - 50 Francis/mcL [facility] Clarity, UA Clear [facility] Color, UA Yellow [facility] Glucose, UA Negative Negative - 1999(110) ++++ mg/dL [facility] Interpretation and review of laboratory results Abnormal [facility] Ketones, UA Negative Negative - 160(16) ++++ mg/dL [facility] Leukocytes, UA Negative Negative - 500+++ Shravan/mcL [facility] Nitrite, UA Negative Negative - Positive [facility] pH, UA 6.0 5 - 9 [facility] Protein, UA Trace Negative - 1999(20) ++++ mg/dL [facility] Spec Grav, UA 1.030 1 - 1.03 [facility] Urobilinogen, UA 0.2 0.2 - 12 mg/dL [facility] AFP Single Marker Scrn, Mate rnal, Serumon 07-26-2023 Ms Alpha-Fetoprotein Negative [facility] Free Cell DNAon 2022 Free Cell Dna LOW RISK [facility] CBC without diffon Hematocrit (Bld) [Volume fraction] 38.7 % [facility] Hemoglobin (Bld) [Mass/Vol] 12.0 g/dL [facility] Platelets (Bld) [#/Vol] 365 10*3/uL [facility] HIV 1&2 AB/AG Screen (P24 AG )on 06-20-2023 HIV 1&2 AB/AG Non-Reactive [facility] Hepatitis B surface antigeno n 06-20-2023 Hepatitis B Surface Antigen Negative [facility] Hepatitis C(HCV) Ab w/ Refle x to PCRon 06-20-2023 HCV Ab Ql (S) Non-Reactive [facility] No Panel InformationOrdered By: Nicky Miles on 06-20-2023 [facility] Rubella IGG immune statuson 06-20-2023 Rubella immune IgG 2.23 IMMUNE [facility] Syphilis Total(Unknown Syphi lis Status)Ordered By: Nicky Miles on 06-20-2023 Syphilis Non-Reactive [facility] TSHon 06-20-2023 Thyroid Stimulating (3Rd Generation) Hormone/ Tsh 0.708 [facility] PAP ACOG PANEL 2: 21 to 29on 11-20-2022 . . Normal [facility] Comment on above: Performed By: #### [id number] #### [facility] [address] [place] [address] Dr. Homero Damon Age Gdln ACOG Testing - Normal [facility] Comment on above: Performed By: #### [id number] #### [facility] [address] [address] [address] Homero Damon DIAGNOSIS: Comment [facility] Comment on above: Result Comment: NEGA TIVE FOR INTRAEPITHELIAL LESION OR MALIGNANCY. Performed By: #### [id number] #### [facility] [address] [place] [address] Dr. Homero Damon Methodology: Comment [facility] Comment on above: Result Comment: This liquid based ThinPrep(R) pap test was screened with the use of an image guided system. Performed By: #### [id number] #### [facility] [address] [place] [address] Dr. Homero Damon Note: Comment [facility] Comment on above: Result Comment: The Pap smear is a screening test designed to aid in the detection of premalignant and malignant conditions of the uterine cervix. It is not a diagnostic procedure and should not be used as the sole means of detecting cervical cancer. Both false-positive and false-negative reports do occur. . Performed By: #### [id number] #### [facility] [address] [place] [address] Dr. Homero Damon Performed by: Comment Normal [facility] Comment on above: Result Comment: Haris Alexis, Safety Specialist (ASCP) Performed By: #### [id number] #### [facility] [address] [place] [address] Dr. Homero Damon Reflex Criteria: Comment [facility] Comment on above: Result Comment: The HPV DNA reflex criteria were not met with this specimen result therefore, no HPV testing was performed. . Performed By: #### [id number] #### [facility] [address] [place] [address] Dr. Homero Damon Specimen adequacy: Comment Normal [facility] Comment on above: Result Comment: Sati sfactory for evaluation. Endocervical and/or squamous metaplastic cells (endocervical component) are present. Performed By: #### [id number] #### [facility] [address] [place] [address] Dr. Homero Damon CANNABINOID (THC) CONFIRMATI ON, URINEon 03-19-2022 Cannabinoid Positive Abnormal [facility] Comment on above: Performed By: #### T HCCONF #### [facility] [address] [place] [address] Dr. Homero Douglas THC GC/MS Conf 47 ng/mL Normal Cutoff=10 Th [facility] Comment on above: Performed By: #### T HCCONF #### [facility] [address] [place] [address] Dr. Homero Damon CBC AUTO DIFFon 03-15-2022 BASO # 0.0 103/ul Normal 0.0-0.1 [facility] Comment on above: Performed By: #### C BC #### [facility] [address] [place] [address] Dr. Homero Damon Basophils/100 WBC (Bld) 0.2 % Normal 0.2-2.0 [facility] Comment on above: Performed By: #### C BC #### [facility] [address] [place] [address] Dr. Homero Damon EO # 0.2 103/ul Normal 0.0-0.7 [facility] Comment on above: Performed By: #### C BC #### [facility] [address] [place] [address] Dr. Homero Damon Eosinophils/100 WBC (Bld) 1.5 % Normal 0.9-7.0 [facility] Comment on above: Performed By: #### C BC #### [facility] [address] [place] [address] Dr. Homero Damon Erythrocyte distribution width (RBC) [Ratio] 16.1 % Critically high 11.0-15.0 [facility] Comment on above: Performed By: #### C BC #### [facility] [address] [place] [address] Dr. Homero Damon Hematocrit (Bld) [Volume fraction] 32.7 % Critically low 36.0-48.0 [facility] Comment on above: Performed By: #### C BC #### [facility] [address] [place] [address] Dr. Homero Damon Hemoglobin (Bld) [Mass/Vol] 9.7 g/dL Critically low 12.0-16.0 [facility] Comment on above: Performed By: #### C BC #### [facility] [address] [place] [address] Dr. Homero Damon IG # 0.04 10e3/ul Critically high 0.00-0.03 [facility] Comment on above: Performed By: #### C BC #### [facility] [address] [place] [address] Dr. Homero Damon IG % 0.4 % Normal 0.0-0.5 [facility] Comment on above: Performed By: #### C BC #### [facility] [address] [place] [address] Dr. Homero Damon LYMPH # 3.5 103/ul Normal 1.2-3.8 [facility] Comment on above: Performed By: #### C BC #### [facility] [address] [place] [address] Dr. Homero Damon Lymphocytes/100 WBC (Bld) 32.9 % Normal 20.5-60.0 [facility] Comment on above: Performed By: #### C BC #### [facility] [address] [place] [address] Dr. Homero Damon MANUAL DIFF REQ NO Normal [facility] Comment on above: Performed By: #### C BC #### [facility] [address] [place] [address] Dr. Homero Damon MCH (RBC) [Entitic mass] 23.0 pg Critically low 26.7-34.0 [facility] Comment on above: Performed By: #### C BC #### [facility] [address] [place] [address] Dr. Homero Damon MCHC (RBC) [Mass/Vol] 29.7 g/dL Critically low 29.9-35.2 [facility] Comment on above: Performed By: #### C BC #### [facility] [address] [place] [address] Dr. Homero Damon MCV (RBC) [Entitic vol] 77.7 fL Critically low 81.0-99.0 [facility] Comment on above: Performed By: #### C BC #### [facility] [address] [place] [address] Dr. Homero Damon MONO # 0.8 103/ul Normal 0.3-0.8 [facility] Comment on above: Performed By: #### C BC #### [facility] [address] [place] [address] Dr. Homero Damon Monocytes/100 WBC (Bld) 7.1 % Normal 1.7-12.0 [facility] Comment on above: Performed By: #### C BC #### [facility] [address] [place] [address] Dr. Homero Damon NEUT # 6.1 103/ul Normal 1.4-6.5 [facility] Comment on above: Performed By: #### C BC #### [facility] [address] [place] [address] Dr. Homero Damon Neutrophils/100 WBC (Bld) 57.9 % Normal 43.0-75.0 [facility] Comment on above: Performed By: #### C BC #### [facility] [address] [place] [address] Dr. Homero Damon Platelet mean volume (Bld) [Entitic vol] 11.0 fL Normal 9.5-13.5 [facility] Comment on above: Performed By: #### C BC #### [facility] [address] [place] [address] Dr. Homero Damon PLT 253 103/ul Normal 150-450 [facility] Comment on above: Performed By: #### C BC #### [facility] [address] [place] [address] Dr. Homero Damon RBC 4.21 106/ul Normal 4.20-5.40 [facility] Comment on above: Performed By: #### C BC #### [facility] [address] [place] [address] Dr. Homero Damon WBC 10.6 103/ul Normal 4.0-11.0 [facility] Comment on above: Performed By: #### C BC #### [facility] [address] [place] [address] Dr. Homero Damon CBC AUTO DIFFon 03-13-2022 BASO # 0.0 103/ul Normal 0.0-0.1 [facility] Comment on above: Performed By: #### T HCCONF #### [facility] [address] [place] [address] Dr. Homero Damon Basophils/100 WBC (Bld) 0.3 % Normal 0.2-2.0 [facility] Comment on above: Performed By: #### T HCCONF #### [facility] [address] [place] [address] Dr. Homero Damon EO # 0.0 103/ul Normal 0.0-0.7 [facility] Comment on above: Performed By: #### T HCCONF #### [facility] [address] [place] [address] Dr. Homero Damon Eosinophils/100 WBC (Bld) 0.2 % Critically low 0.9-7.0 [facility] Comment on above: Performed By: #### T HCCONF #### [facility] [address] [place] [address] Dr. Homero Damon Erythrocyte distribution width (RBC) [Ratio] 16.0 % Critically high 11.0-15.0 [facility] Comment on above: Performed By: #### T HCCONF #### [facility] [address] [place] [address] Dr. Homero Damon Hematocrit (Bld) [Volume fraction] 35.3 % Critically low 36.0-48.0 [facility] Comment on above: Performed By: #### T HCCONF #### [facility] [address] [place] [address] Dr. Homero Damon Hemoglobin (Bld) [Mass/Vol] 11.0 g/dL Critically low 12.0-16.0 [facility] Comment on above: Performed By: #### T HCCONF #### [facility] [address] [place] [address] Dr. Homero Damon IG # 0.04 10e3/ul Critically high 0.00-0.03 [facility] Comment on above: Performed By: #### T HCCONF #### [facility] [address] [place] [address] Dr. Homero Damon IG % 0.4 % Normal 0.0-0.5 [facility] Comment on above: Performed By: #### T HCCONF #### [facility] [address] [place] [address] Dr. Homero Damon LYMPH # 2.5 103/ul Normal 1.2-3.8 [facility] Comment on above: Performed By: #### T HCCONF #### [facility] [address] [place] [address] Dr. Homero Damon Lymphocytes/100 WBC (Bld) 26.4 % Normal 20.5-60.0 [facility] Comment on above: Performed By: #### T HCCONF #### [facility] [address] [place] [address] Dr. Homero Damon MANUAL DIFF REQ NO Normal [facility] Comment on above: Performed By: #### T HCCONF #### [facility] [address] [place] [address] Dr. Homero Damon MCH (RBC) [Entitic mass] 23.5 pg Critically low 26.7-34.0 [facility] Comment on above: Performed By: #### T HCCONF #### [facility] [address] [place] [address] Dr. Homero Damon MCHC (RBC) [Mass/Vol] 31.2 g/dL Normal 29.9-35.2 [facility] Comment on above: Performed By: #### T HCCONF #### [facility] [address] [place] [address] Dr. Homero Damon MCV (RBC) [Entitic vol] 75.4 fL Critically low 81.0-99.0 [facility] Comment on above: Performed By: #### T HCCONF #### [facility] [address] [place] [address] Dr. Homero Damon MONO # 0.6 103/ul Normal 0.3-0.8 [facility] Comment on above: Performed By: #### T HCCONF #### [facility] [address] [place] [address] Dr. Homero Damon Monocytes/100 WBC (Bld) 6.4 % Normal 1.7-12.0 [facility] Comment on above: Performed By: #### T HCCONF #### [facility] [address] [place] [address] Dr. Homero Damon NEUT # 6.4 103/ul Normal 1.4-6.5 [facility] Comment on above: Performed By: #### T HCCONF #### [facility] [address] [place] [address] Dr. Homero Damon Neutrophils/100 WBC (Bld) 66.3 % Normal 43.0-75.0 [facility] Comment on above: Performed By: #### T HCCONF #### [facility] [address] [place] [address] Dr. Homero Damon Platelet mean volume (Bld) [Entitic vol] 11.0 fL Normal 9.5-13.5 [facility] Comment on above: Performed By: #### T HCCONF #### [facility] [address] [place] [address] Dr. Homero Damon PLT 312 103/ul Normal 150-450 [facility] Comment on above: Performed By: #### T HCCONF #### [facility] [address] [place], [place] [id number] Dr. Homero Damon RBC 4.68 106/ul Normal 4.20-5.40 [facility] Comment on above: Performed By: #### T HCCONF #### [facility] [address] [place] [address] Dr. Homero Damon WBC 9.6 103/ul Normal 4.0-11.0 [facility] Comment on above: Performed By: #### T HCCONF #### [facility] [address] [place] [address] Dr. Homero Damon Covid-19 PCR (CVDTBH)on 02-13 SARS-CoV-2 (COVID-19) RNA LORRAINE+probe Ql (Unsp spec) Not detected Normal NOT DETECTED [facility] Comment on above: Result [...] for this test is supported by the [place] of Health and Human Service's declaration that [...] used). Performed By: #### C VDTBH #### [facility] [address] [place] [address] Dr. Homero Damon DRUG SCREEN RAPID (URINE)on 03-13-2022 AMP Negative Normal NEGATIVE [facility] Comment on above: Performed By: #### D RUGRPD #### [facility] [address] [place] [address] Dr. Homero Damon BAR Negative Normal NEGATIVE [facility] Comment on above: Performed By: #### D RUGRPD #### [facility] [address] [place] [address] Dr. Homero Damon BUP Negative Normal NEGATIVE [facility] Comment on above: Performed By: #### D RUGRPD #### [facility] [address] [place] [address] Dr. Homero Damon BZO Negative Normal NEGATIVE [facility] Comment on above: Performed By: #### D RUGRPD #### [facility] [address] [place] [address] Dr. Homero Damon MADHURI Negative Normal NEGATIVE [facility] Comment on above: Performed By: #### D RUGRPD #### [facility] [address] [place] [address] Dr. Homero Damon CUT-OFFS SEE BELOW Normal [facility] Comment on above: Result Comment: AMP [...] ng/mL Performed By: #### D RUGRPD #### [facility] [address] [place] [address] Dr. Homero Damon DRUG CUT HEADER DRUG CLASS TEST SYSTEM CUT-OFF CONCENTRATIONS ARE FOLLOWS: Normal [facility] Comment on above: Performed By: #### D RUGRPD #### [facility] [address] [place] [address] Dr. Homero Damon mAMP Negative Normal NEGATIVE [facility] Comment on above: Performed By: #### D RUGRPD #### [facility] [address] [place] [address] Dr. Homero Damon MTD Negative Normal NEGATIVE [facility] Comment on above: Performed By: #### D RUGRPD #### [facility] [address] [address] [address] Homero Damon OPI Negative Normal NEGATIVE [facility] Comment on above: Performed By: #### D RUGRPD #### [facility] [address] [address] [address] Homero Damon OXY Negative Normal NEGATIVE [facility] Comment on above: Performed By: #### D RUGRPD #### [facility] [address] [address] [address] Homero Damon PCP Negative Normal NEGATIVE [facility] Comment on above: Performed By: #### D RUGRPD #### [facility] [address] [place] [address] Dr. Homero Damon PPX Negative Normal NEGATIVE [facility] Comment on above: Performed By: #### D RUGRPD #### [facility] [address] [place] [address] Dr. Homero Damon TCA Negative Normal NEGATIVE [facility] Comment on above: Performed By: #### D RUGRPD #### [facility] [address] [place] [address] Dr. Homero Damon THC Positive Abnormal NEGATIVE [facility] Comment on above: Performed By: #### D RUGRPD #### [facility] [address] [place] [address] Dr. Homero Damon TYPE AND SCREENon 03-13-2022 TYPE AND SCREEN Negative Normal [facility] Comment on above: Performed By: #### T HCCONF #### [facility] [address] [place] [address] Dr. 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 Homero Damon Clarity (U) CLEAR Normal CLEAR [facility] Comment on above: Performed By: #### U ACSIND #### [facility] [address] [address] [address] Homero Damon Color (U) YELLOW Normal YELLOW [facility] Comment on above: Performed By: #### U ACSIND #### [facility] [address] [address] [address] Homero Damon Glucose Ql (U) Negative Normal NEGATIVE [facility] Comment on above: Performed By: #### U ACSIND #### [facility] [address] [place] [address] Dr. Homero Damon Hemoglobin Ql (U) Negative Normal NEGATIVE [facility] Comment on above: Performed By: #### U ACSIND #### [facility] [address] [address] [address] Homero Damon Ketones Ql (U) Negative Normal NEGATIVE [facility] Comment on above: Performed By: #### U ACSIND #### [facility] [address] [place] [address] Dr. Homero Damon LEUKOCYTES Negative Normal NEGATIVE [facility] Comment on above: Performed By: #### U ACSIND #### [facility] [address] [place] [address] Dr. Homero Damon Nitrite Ql (U) Negative Normal NEGATIVE [facility] Comment on above: Performed By: #### U ACSIND #### [facility] [address] [place] [address] Dr. Homero Damon pH (U) 6.0 [pH] Normal 5-9 [facility] Comment on above: Performed By: #### U ACSIND #### [facility] [address] [place] [address] Dr. Homero Damon SPEC GRAVITY 1.025 Normal 1.005-<=1.[address] [facility] Comment on above: Performed By: #### U ACSIND #### [facility] [address] [place] [address] Dr. Homero Damon UA PROTEIN Negative Normal NEGATIVE/ TRACE [facility] Comment on above: Performed By: #### U ACSIND #### [facility] [address] [place] [address] Dr. Homero Damon UR MICRO IND NOT INDICATED Normal [facility] Comment on above: Performed By: #### U ACSIND #### [facility] [address] [place] [address] Dr. Homero Damon Urobilinogen Qn (U) 1.0 {Saad'U}/dL Normal 0.2 - 1. 0 [facility] Comment on above: Performed By: #### U ACSIND #### [facility] [address] [place] [address] Dr. Homero Damon GROUP B STREP CULTUREon 02-11 S. agalactiae Ag Ql (Unsp spec) Culture Observations: Called Group B Strep to Millie Armando, Descriptive Catalog Librarian on 02/25 @ 0917 Isolate 1 Streptococcus agalactiae Moderate growth of ORGANISM 1 Streptococcus agalactiae ANTIBIOTIC M.I.C RX STATUS Benzylpenicillin <=0.06 S F Ampicillin <=0.25 S F Cefotaxime <=0.12 S F Ceftriaxone <=0.12 S F Levofloxacin 0.5 S F Erythromycin >=8 R F Clindamycin >=1 R F Linezolid <=2 S F Vancomycin 0.5 S F Tetracycline >=16 R F Normal [facility] Comment on above: Performed By: #### T HCCONF #### [facility] [address] [place] [address] Dr. Homero Damon CULTURE URINEon 02-23-2022 CULTURE [...] F Trimethoprim/Sulfame thoxazole <=20 S F Normal [facility] Comment on above: Performed By: #### U RCX #### [facility] [address] [address] [address] Homero Damon UA RANDOM W/MICROSCOPICon BACTERIA LARGE Abnormal NONE SEEN [facility] Comment on above: Performed By: #### U AMIC #### [facility] [address] [address] [address] Homero Damon Bilirubin Ql (U) Negative Normal NEGATIVE [facility] Comment on above: Performed By: #### U AMIC #### [facility] [address] [address] [address] Homero Damon CAST NONE SEEN Normal NONE SEEN [facility] Comment on above: Performed By: #### U AMIC #### [facility] [address] [place] [address] Dr. Homero Damon Clarity (U) CLEAR Normal CLEAR [facility] Comment on above: Performed By: #### U AMIC #### [facility] [address] [place] [address] Dr. Homero Damon Color (U) LT. YELLOW Normal YELLOW [facility] Comment on above: Performed By: #### U AMIC #### [facility] [address] [address] [address] Homero Damon Crystals LM Nom (Urine sed) NONE SEEN Normal NONE SEEN [facility] Comment on above: Performed By: #### U AMIC #### [facility] [address] [place] [address] Dr. Homero Damon Epithelial cells LM Ql (Urine sed) FEW Abnormal NONE SEEN /RARE [facility] Comment on above: Performed By: #### U AMIC #### [facility] [address] [place] [address] Dr. Homero Damon Glucose Ql (U) Negative Normal NEGATIVE [facility] Comment on above: Performed By: #### U AMIC #### [facility] [address] [place] [address] Dr. Homero Damon Hemoglobin Ql (U) Negative Normal NEGATIVE [facility] Comment on above: Performed By: #### U AMIC #### [facility] [address] [place] [address] Dr. Homero Damon Ketones Ql (U) TRACE Abnormal NEGATIVE [facility] Comment on above: Performed By: #### U AMIC #### [facility] [address] [place] [address] Dr. Homero Damon LEUKOCYTES TRACE Abnormal NEGATIVE [facility] Comment on above: Performed By: #### U AMIC #### [facility] [address] [place] [address] Dr. Homero Damon MUCOUS NONE SEEN Normal NONE SEEN [facility] Comment on above: Performed By: #### U AMIC #### [facility] [address] [place] [address] Dr. Homero Damon Nitrite Ql (U) Negative Normal NEGATIVE [facility] Comment on above: Performed By: #### U AMIC #### [facility] [address] [place] [address] Dr. Homero Damon pH (U) 6.0 [pH] Normal 5-9 [facility] Comment on above: Performed By: #### U AMIC #### [facility] [address] [place] [address] Dr. Homero Damon RBC NONE SEEN Abnormal 0-2 [facility] Comment on above: Performed By: #### U AMIC #### [facility] [address] [place] [address] Dr. Homero Damon SPEC GRAVITY 1.025 Normal 1.005-<=1.[address] [facility] Comment on above: Performed By: #### U AMIC #### [facility] [address] [place] [address] Dr. Homero Damon UA PROTEIN Negative Normal NEGATIVE/ TRACE [facility] Comment on above: Performed By: #### U AMIC #### [facility] [address] [place] [address] Dr. Homero Damon Urobilinogen Qn (U) 0.2 {Saad'U}/dL Normal 0.2 - 1. 0 [facility] Comment on above: Performed By: #### U AMIC #### [facility] [address] [place] [address] Dr. Homero Damon WBC 5-10 Abnormal NONE SEEN [facility] Comment on above: Performed By: #### U AMIC #### [facility] [address] [place] [address] Dr. Homero Damon GLUCOSE - 1HRon 12-12-2021 Glucose [Mass/Vol] 128 mg/dL Critically high 74-106 T [facility] Comment on above: Performed By: #### G LU1HR #### [facility] [address] [place] [address] Dr. Homero Damon HEMOGRAM AND PLATELon 2021 Hematocrit (Bld) [Volume fraction] 38.8 % Normal 36.0-48.0 [facility] Comment on above: Performed By: #### H H #### [facility] [address] [place] [address] Dr. Homero Damon Hemoglobin (Bld) [Mass/Vol] 12.3 g/dL Normal 12.0-16.0 [facility] Comment on above: Performed By: #### H H #### [facility] [address] [place] [address] Dr. Homero Damon MCH (RBC) [Entitic mass] 25.8 pg Critically low 26.7-34.0 [facility] Comment on above: Performed By: #### H H #### [facility] [address] [place] [address] Dr. Homero Damon MCHC (RBC) [Mass/Vol] 31.7 g/dL Normal 29.9-35.2 [facility] Comment on above: Performed By: #### H H #### [facility] [address] [place] [address] Dr. Homero Damon MCV (RBC) [Entitic vol] 81.3 fL Normal 81.0-99.0 [facility] Comment on above: Performed By: #### H H #### [facility] [address] [place] [address] Dr. Homero Damon PLT 304 103/ul Normal 150-450 [facility] Comment on above: Performed By: #### H H #### [facility] [address] [place] [address] Dr. Homero Damon RBC 4.77 106/ul Normal 4.20-5.40 [facility] Comment on above: Performed By: #### H H #### [facility] [address] [place] [address] Dr. Homero Damon WBC 9.9 103/ul Normal 4.0-11.0 [facility] Comment on above: Performed By: #### H H #### [facility] [address] [place] [address] Dr. Homero Damon CULTURE URINEon 12-06-2021 CULTURE [...] F Trimethoprim/Sulfame thoxazole <=20 S F Normal [facility] Comment on above: Performed By: #### T HCCONF #### [facility] [address] [place] [address] Dr. Homero Damon Social History Date Type Detail Facility Start: 08-20-2023 End: 09-03-2023 Alcohol intake Current non-drinker of alcohol (finding) [facility] Start: 08-24-2020 End: 08-20-2023 History of Social function [facility] Start: 08-24-2020 End: 08-20-2023 Tobacco use panel [facility] Start: 06-13-2023 Gender identity Identifies as female gender (finding) [facility] Start: 04-14-2023 [facility] Start: 04-08-2017 End: 09-03-2023 Tobacco smoking status NHIS Never smoked tobacco [facility] Start: 04-08-2017 End: 09-03-2023 Tobacco use and exposure Smokeless tobacco non-user [facility] Start: 2000 Sex Assigned At Not on file [facility] Childcare Unknown [facility] Vital Signs Date Time Vital Sign Value Performing Clinician Jade rendon 09-03-2023 10:39-0500 Body height 160 cm Marielena Hernandez MD Work Phone: [facility] 09-03-2023 10:39-0500 Body mass index (BMI) [Ratio] 41.45 kg/m2 Marielena Hernandez MD Work Phone: [facility] 09-03-2023 10:39-0500 Body weight 106.14 kg Marielena Hernandez MD Work Phone: [facility] 09-03-2023 10:39-0500 Diastolic blood pressure 88 mm[Hg] Marielena Hernandez MD Work Phone: [facility] 09-03-2023 10:39-0500 Heart rate 98 /min Marielena Hernandez MD Work Phone: [facility] 09-03-2023 10:39-0500 Systolic blood pressure 123 mm[Hg] Marielena Hernandez MD Work Phone: [facility] 08-21-2023 10:31-0500 Body mass index (BMI) [Ratio] 43.48 kg/m2 Trisha CASTELLANOS Work Phone: [facility] 08-21-2023 10:31-0500 Body weight 104.38 kg Trisha CASTELLANOS Work Phone: [facility] 08-21-2023 10:31-0500 Diastolic blood pressure 60 mm[Hg] Trisha CASTELLANOS Work Phone: [facility] 08-21-2023 10:31-0500 Systolic blood pressure 118 mm[Hg] Trisha CASTELLANOS Work Phone: [facility] History of Present illness Narrative 09-03-2023 E[place] [...] Yes Have you been seen here at [facility] in a previous ? No Recent ER visits or hospitalizations? No Bring blood sugar log or meter with you today? (Please bring them with you for every visit at [facility]) N/A Traveled outside the country in [...] TESTS AND ULTRASOUND REPORTS: Referral records and [facility] chart were reviewed Pertinent Ultrasound findings [...] patient is in complete care of her surveillance director. Patient does have ultrasound and office visit [...] patient/family/caregiver Referring and communicating with other health manager home healthcare (not separately reported) Documenting clinical information in the electronic or other health record Marielena Hernandez MD Maternal- Medicine [facility] [address] [place] [address] [facility], the CDC, and other organizations representing maternal and public health professionals recommend that , , and lactating people and those considering receive the COVID-19 vaccination. Vaccination is the best method to reduce maternal and complications of SARS-CoV-2 infection. This document was created with [email or web address] technology. Though I make every effort to review the dictation as it is transcribed, on occasion the spoken word can be misinterpreted by the technology leading to inappropriate words, phrases, or sentences. This note is addressed to the requesting provider as a consultation for clinical guidance. Specific medical abbreviations are occasionally used and those are generally approved by the [place]?Board of?Obstetrics and?Gynecology?as well as?[place] s abbreviations. The above plan of care was based solely on the diagnoses for which a consultation was requested. ?More frequent testing may be indicated based on her other medical/obstetrical conditions. The management of other or medical conditions is beyond the scope of requested consultation and will continue to be followed by the primary surveillance director or primary care provider. Note to patient: [...] of the practitioner. documented in this encounter [facility] [employer] History of Present illness Narrative 08-21-2023 EMANUEL Clayotn - 08/21/2023 10:30 AM EST Note Date [...] obesity with alveolar hypoventilation affecting , antepartum ([facility]) documented in this encounter [employer] [facility] Instructions Note Date & Type Note Facility Instructions Not on filedocumented in this en counter [employer] Instructions Note Date & Type Note Facility Instructions Not on filedocumented in this en counter [facility] Summary Purpose Family History No Family History Records FoundNo Family History Records FoundNo Family History Records Found Advance Directives No Advanced Directives Records FoundNo Advanced Directives Records FoundNo Advanced Directives Records Found Additional Source Comments INFORMATION SOURCE (unrecogn ized section and content) DATE CREATED AUTHOR 11/20/2022 [facility] DATE CREATED AUTHOR AUTHOR'S ORGANIZ ATION 09/10/2023 [facility] DATE CREATED AUTHOR AUTHOR'S ORGANIZ ATION 12/12/2023 [facility] EPIC Reason for Visit (unrecogniz [...] BE BASED ON THE PRIMARY CLINICAL RECORDS. [facility] [employer] provides no warranty or guarantee of the accuracy or completeness of information in this document.
[2023-12-13 12:11] VITALS: BP 122/77; PULSE 142
== END 2023-12-13 12:35 | disposition home or self-care (01) ==
LOC: FBCO 08:05 → FBC 12:07
PROVIDERS: PCP Nurse Practitioner Primary Care; Visit Provider Obstetrics & Gynecology
DX: O36.63X0 Maternal care for excessive fetal growth, third trimester, not applicable or unspecified (principal)
CPT/HCPCS: 59025

== ENCOUNTER 2023-12-17 06:59 | Outpatient (OUT) | payer MEDICAID, SELFPAY ==
--- OUTSIDE RECORDS SUMMARY | 2023-12-17 07:02 | XMS_ITS ---
Patient Summarization (C-CDA 2.1 CCD) Created on: December 17, 2023 JULIETTE CARLSON~LENY ANDREWS : 2000 Sex: Female Author Organization Sample organization Care Team Providers Care Jewel Waxer Name Role Phone JAIMEK ., DR GRIGGS [...] 09-03-2023 End: 09-03-2023 [facility] Start: 09-03-2023 End: 09-03-2023 Office outpatient visit 10 minutes Marielena Hernandez MD Work Phone: [facility] [place] Comment on above: 22 weeks gestation o f (Primary Dx); Severe obesity with alveolar hypoventilation affecting , antepartum ([facility]) Start: 08-21-2023 End: 08-21-2023 ambulatory TRISHA SLATER Not Available Start: 08-21-2023 End: 08-21-2023 Office outpatient visit 15 minutes Trisha CASTELLANOS Work Phone: [facility] Comment on above: Second trimester pre gnancy; Diabetes mellitus screening Start: 08-20-2023 Chart abstracting Marielena Hernandez MD Work Phone: [facility]- [facility] at [facility] Start: 07-23-2023 End: 07-23-2023 ambulatory LEA DANO [...] unspecified formulation Marielena Hernandez MD Work Phone: [facility] Medications Current Medications Medication Drug [...] Active Payers Date Payer Category Payer Medicaid [id number] 2022 Medicaid [id number] 2022 Medicaid [id number] 2000 Unknown [id number] 2.16.84 0.1.333287.3.579.2.593 2000 Unknown [id number] 2.16.84 0.1.411954.3.579.2.593 2000 Unknown [id number] 2.16.84 0.1.005780.3.579.2.593 2000 Unknown [id number] 2.16.84 0.1.001159.3.579.2.593 2000 Unknown [id number] 2.16.84 0.1.836590.3.579.2.593 2000 Unknown [id number] 2.16.84 0.1.212052.3.579.2.593 2000 Unknown [id number] 2.16.84 0.1.925295.3.579.2.593 2000 Unknown [id number] 2.16.8 40.1.437939.3.579.2.1286 2000 Unknown [id number] 2.16.8 40.1.234772.3.579.2.1286 2000 Unknown [id number] 2.16.84 0.1.703570.3.579.2.1259 2000 Unknown [id number] 2.16.84 0.1.120864.3.579.2.1259 2000 Unknown [id number] 2.16.84 0.1.505245.3.579.2.9 2000 Unknown [id number] 2.16.84 0.1.181339.3.579.2.9 2000 Unknown [id number] 2.16.84 0.1.964329.3.579.2.9 2000 Unknown [id number] 2.16.84 0.1.512779.3.579.2.1259 2000 Unknown [id number] 2.16.84 0.1.820612.3.579.2.9 2000 Unknown [id number] 2.16.84 0.1.491374.3.579.2.9 2000 Unknown [id number] 2.16.84 0.1.241404.3.579.2.9 2000 Unknown [id number] 2.16.840 .1.607686.3.579.2.1259 1959 Unknown [id number] Plan of Treatment Date Care Activity Detail Author Start: 10-27-2023 DTaP,Tdap and Td Vaccines (8 - Td or Tdap) DTaP,Tdap and Td Vaccines (8 - Td or Tdap) [facility] Start: 09-17-2023 End: 09-17-2023 Patient encounter procedure 09/17/2023 10:50 AM EST Routine [facility] [address] [place] [address] [place] [address] Lea Cole, [address] [place] [address] [facility] Start: 09-03-2023 End: 09-03-2023 Patient encounter procedure [facility] Start: 08-21-2023 End: 08-21-2024 CBC panel - Blood by Automated count CBC Lab Routine Diabetes mellitus screening Expected: 08/21/2023 (Approximate), Expires: 08/21/2024 [facility] Work Phone: Comment on above: Expected: 08/21/2023 (Approximate), Expires: 08/21/2024 Start: 08-21-2023 End: 08-21-2024 Measurement of glucose 1 hour after glucose challenge for glucose tolerance test Glucose tolerance, 1 hour Lab Routine Diabetes mellitus screening Expected: 08/21/2023 (Approximate), Expires: 08/21/2024 [facility] Comment on above: Expected: 08/21/2023 (Approximate), Expires: 08/21/2024 Start: 03-14-2023 Influenza vaccination Influenza Vacc ine [facility] Start: 2021 Screening for malign ant neoplasm of cervix Pap Smear [facility] Start: 2019 DTaP,Tdap and Td Vaccines (1 - Tdap) DTaP,Tdap and Td Vaccines (1 - Tdap) [facility] Start: 2018 Adult BMI Follow Up Plan Adult BMI Follow Up Plan [facility] Start: 2018 Adult BMI Screening Adult BMI Screen ing [facility] Start: 2012 Depression Screening Depression Scre ening [facility] Start: 2012 Tobacco Screening Tobacco Screening [facility] Problems Active Problems Problem Classification [...] UA Negative Negative - 4(70) +++ mg/dL [facility] Blood, UA Negative Negative - 50 Francis/mcL [facility] Clarity, UA Clear [facility] Color, UA Yellow [facility] Glucose, UA Negative Negative - 1999(110) ++++ mg/dL [facility] Interpretation and review of laboratory results Abnormal [facility] Ketones, UA Negative Negative - 160(16) ++++ mg/dL [facility] Leukocytes, UA Negative Negative - 500+++ Shravan/mcL [facility] Nitrite, UA Negative Negative - Positive [facility] pH, UA 6.0 5 - 9 [facility] Protein, UA Trace Negative - 1999(20) ++++ mg/dL [facility] Spec Grav, UA 1.030 1 - 1.03 [facility] Urobilinogen, UA 0.2 0.2 - 12 mg/dL [facility] AFP Single Marker Scrn, Mate rnal, Serumon 07-26-2023 Ms Alpha-Fetoprotein Negative Formerly named [facility] Free Cell DNAon 2022 Free Cell Dna LOW RISK [facility] CBC without diffon Hematocrit (Bld) [Volume fraction] 38.7 % [facility] Hemoglobin (Bld) [Mass/Vol] 12.0 g/dL [facility] Platelets (Bld) [#/Vol] 365 10*3/uL [facility] HIV 1&2 AB/AG Screen (P24 AG )on 06-20-2023 HIV 1&2 AB/AG Non-Reactive [facility] Hepatitis B surface antigeno n 06-20-2023 Hepatitis B Surface Antigen Negative [facility] Hepatitis C(HCV) Ab w/ Refle x to PCRon 06-20-2023 HCV Ab Ql (S) Non-Reactive [facility] No Panel InformationOrdered By: Nicky Miles on 06-20-2023 [facility] Rubella IGG immune statuson 06-20-2023 Rubella immune IgG 2.23 IMMUNE [facility] Syphilis Total(Unknown Syphi lis Status)Ordered By: Nicky Miles on 06-20-2023 Syphilis Non-Reactive [facility] TSHon 06-20-2023 Thyroid Stimulating (3Rd Generation) Hormone/ Tsh 0.708 [facility] PAP ACOG PANEL 2: 21 to 29on 11-20-2022 . . Normal [facility] Comment on above: Performed By: #### [id number] #### [facility] [address] [place] [address] Dr. Homero Damon Age Gdln ACOG Testing - Normal [facility] Comment on above: Performed By: #### [id number] #### [facility] [address] [address] [address] Homero Damon DIAGNOSIS: Comment [facility] Comment on above: Result Comment: NEGA TIVE FOR INTRAEPITHELIAL LESION OR MALIGNANCY. Performed By: #### [id number] #### [facility] [address] [place] [address] Dr. Homero Damon Methodology: Comment [facility] Comment on above: Result Comment: This liquid based ThinPrep(R) pap test was screened with the use of an image guided system. Performed By: #### [id number] #### [facility] [address] [place] [address] Dr. Homero Damon Note: Comment [facility] Comment on above: Result Comment: The Pap smear is a screening test designed to aid in the detection of premalignant and malignant conditions of the uterine cervix. It is not a diagnostic procedure and should not be used as the sole means of detecting cervical cancer. Both false-positive and false-negative reports do occur. . Performed By: #### [id number] #### [facility] [address] [place] [address] Dr. Homero Damon Performed by: Comment Normal [facility] Comment on above: Result Comment: Haris Alexis, [place] (ASCP) Performed By: #### [id number] #### [facility] [address] [place] [address] Dr. Homero Damon Reflex Criteria: Comment [facility] Comment on above: Result Comment: The HPV DNA reflex criteria were not met with this specimen result therefore, no HPV testing was performed. . Performed By: #### [id number] #### [facility] [address] [place] [address] Dr. Homero Damon Specimen adequacy: Comment Normal [facility] Comment on above: Result Comment: Sati sfactory for evaluation. Endocervical and/or squamous metaplastic cells (endocervical component) are present. Performed By: #### [id number] #### [facility] [address] [place] [address] Dr. Homero Damon CANNABINOID (THC) CONFIRMATI ON, URINEon 03-19-2022 Cannabinoid Positive Abnormal [facility] Comment on above: Performed By: #### T HCCONF #### [facility] [address] [place] [address] Dr. Homero Douglas THC GC/MS Conf 47 ng/mL Normal Cutoff=10 Th [facility] Comment on above: Performed By: #### T HCCONF #### [facility] [address] [place] [address] Dr. Homero Damon CBC AUTO DIFFon 03-15-2022 BASO # 0.0 103/ul Normal 0.0-0.1 [facility] Comment on above: Performed By: #### C BC #### [facility] [address] [place] [address] Dr. Homero Damon Basophils/100 WBC (Bld) 0.2 % Normal 0.2-2.0 [facility] Comment on above: Performed By: #### C BC #### [facility] [address] [place] [address] Dr. Homero Dmaon EO # 0.2 103/ul Normal 0.0-0.7 [facility] Comment on above: Performed By: #### C BC #### [facility] [address] [place] [address] Dr. Homero Damon Eosinophils/100 WBC (Bld) 1.5 % Normal 0.9-7.0 [facility] Comment on above: Performed By: #### C BC #### [facility] [address] [place] [address] Dr. Homero Damon Erythrocyte distribution width (RBC) [Ratio] 16.1 % Critically high 11.0-15.0 [facility] Comment on above: Performed By: #### C BC #### [facility] [address] [place] [address] Dr. Homero Damon Hematocrit (Bld) [Volume fraction] 32.7 % Critically low 36.0-48.0 [facility] Comment on above: Performed By: #### C BC #### [facility] [address] [place] [address] Dr. Homero Damon Hemoglobin (Bld) [Mass/Vol] 9.7 g/dL Critically low 12.0-16.0 [facility] Comment on above: Performed By: #### C BC #### [facility] [address] [place] [address] Dr. Homero Damon IG # 0.04 10e3/ul Critically high 0.00-0.03 [facility] Comment on above: Performed By: #### C BC #### [facility] [address] [place] [address] Dr. Homero Damon IG % 0.4 % Normal 0.0-0.5 [facility] Comment on above: Performed By: #### C BC #### [facility] [address] [place] [address] Dr. Homero Damon LYMPH # 3.5 103/ul Normal 1.2-3.8 [facility] Comment on above: Performed By: #### C BC #### [facility] [address] [place] [address] Dr. Homero Damon Lymphocytes/100 WBC (Bld) 32.9 % Normal 20.5-60.0 [facility] Comment on above: Performed By: #### C BC #### [facility] [address] [place] [address] Dr. Homero Damon MANUAL DIFF REQ NO Normal [facility] Comment on above: Performed By: #### C BC #### [facility] [address] [place] [address] Dr. Homero Damon MCH (RBC) [Entitic mass] 23.0 pg Critically low 26.7-34.0 [facility] Comment on above: Performed By: #### C BC #### [facility] [address] [place] [address] Dr. Homero Damon MCHC (RBC) [Mass/Vol] 29.7 g/dL Critically low 29.9-35.2 [facility] Comment on above: Performed By: #### C BC #### [facility] [address] [place] [address] Dr. Homero Damon MCV (RBC) [Entitic vol] 77.7 fL Critically low 81.0-99.0 [facility] Comment on above: Performed By: #### C BC #### [facility] [address] [place] [address] Dr. Homero Damon MONO # 0.8 103/ul Normal 0.3-0.8 [facility] Comment on above: Performed By: #### C BC #### [facility] [address] [place] [address] Dr. Homero Damon Monocytes/100 WBC (Bld) 7.1 % Normal 1.7-12.0 [facility] Comment on above: Performed By: #### C BC #### [facility] [address] [place] [address] Dr. Homero Damon NEUT # 6.1 103/ul Normal 1.4-6.5 [facility] Comment on above: Performed By: #### C BC #### [facility] [address] [place] [address] Dr. Homero Damon Neutrophils/100 WBC (Bld) 57.9 % Normal 43.0-75.0 [facility] Comment on above: Performed By: #### C BC #### [facility] [address] [place] [address] Dr. Homero Damon Platelet mean volume (Bld) [Entitic vol] 11.0 fL Normal 9.5-13.5 [facility] Comment on above: Performed By: #### C BC #### [facility] [address] [place] [address] Dr. Homero Damon PLT 253 103/ul Normal 150-450 [facility] Comment on above: Performed By: #### C BC #### [facility] [address] [place] [address] Dr. Homero Damon RBC 4.21 106/ul Normal 4.20-5.40 [facility] Comment on above: Performed By: #### C BC #### [facility] [address] [place] [address] Dr. Homero Damon WBC 10.6 103/ul Normal 4.0-11.0 [facility] Comment on above: Performed By: #### C BC #### [facility] [address] [place] [address] Dr. Homero Damon CBC AUTO DIFFon 03-13-2022 BASO # 0.0 103/ul Normal 0.0-0.1 [facility] Comment on above: Performed By: #### T HCCONF #### [facility] [address] [place] [address] Dr. Homero Damon Basophils/100 WBC (Bld) 0.3 % Normal 0.2-2.0 [facility] Comment on above: Performed By: #### T HCCONF #### [facility] [address] [place] [address] Dr. Homero Damon EO # 0.0 103/ul Normal 0.0-0.7 [facility] Comment on above: Performed By: #### T HCCONF #### [facility] [address] [place] [address] Dr. Homero Damon Eosinophils/100 WBC (Bld) 0.2 % Critically low 0.9-7.0 [facility] Comment on above: Performed By: #### T HCCONF #### [facility] [address] [place] [address] Dr. Homero Damon Erythrocyte distribution width (RBC) [Ratio] 16.0 % Critically high 11.0-15.0 [facility] Comment on above: Performed By: #### T HCCONF #### [facility] [address] [place] [address] Dr. Homero Damon Hematocrit (Bld) [Volume fraction] 35.3 % Critically low 36.0-48.0 [facility] Comment on above: Performed By: #### T HCCONF #### [facility] [address] [place] [address] Dr. Homero Damon Hemoglobin (Bld) [Mass/Vol] 11.0 g/dL Critically low 12.0-16.0 [facility] Comment on above: Performed By: #### T HCCONF #### [facility] [address] [place] [address] Dr. Homero Damon IG # 0.04 10e3/ul Critically high 0.00-0.03 [facility] Comment on above: Performed By: #### T HCCONF #### [facility] [address] [place] [address] Dr. Homero Damon IG % 0.4 % Normal 0.0-0.5 [facility] Comment on above: Performed By: #### T HCCONF #### [facility] [address] [place] [address] Dr. Homero Damon LYMPH # 2.5 103/ul Normal 1.2-3.8 [facility] Comment on above: Performed By: #### T HCCONF #### [facility] [address] [place] [address] Dr. Homero Damon Lymphocytes/100 WBC (Bld) 26.4 % Normal 20.5-60.0 [facility] Comment on above: Performed By: #### T HCCONF #### [facility] [address] [place] [address] Dr. Homero Damon MANUAL DIFF REQ NO Normal [facility] Comment on above: Performed By: #### T HCCONF #### [facility] [address] [place] [address] Dr. Homero Damon MCH (RBC) [Entitic mass] 23.5 pg Critically low 26.7-34.0 [facility] Comment on above: Performed By: #### T HCCONF #### [facility] [address] [place] [address] Dr. Homero Damon MCHC (RBC) [Mass/Vol] 31.2 g/dL Normal 29.9-35.2 [facility] Comment on above: Performed By: #### T HCCONF #### [facility] [address] [place] [address] Dr. Homero Damon MCV (RBC) [Entitic vol] 75.4 fL Critically low 81.0-99.0 [facility] Comment on above: Performed By: #### T HCCONF #### [facility] [address] [place] [address] Dr. Homero Damon MONO # 0.6 103/ul Normal 0.3-0.8 [facility] Comment on above: Performed By: #### T HCCONF #### [facility] [address] [place] [address] Dr. Homero Damon Monocytes/100 WBC (Bld) 6.4 % Normal 1.7-12.0 [facility] Comment on above: Performed By: #### T HCCONF #### [facility] [address] [place] [address] Dr. Homero Damon NEUT # 6.4 103/ul Normal 1.4-6.5 [facility] Comment on above: Performed By: #### T HCCONF #### [facility] [address] [place] [address] Dr. Homero Damon Neutrophils/100 WBC (Bld) 66.3 % Normal 43.0-75.0 [facility] Comment on above: Performed By: #### T HCCONF #### [facility] [address] [place] [address] Dr. Homero Damon Platelet mean volume (Bld) [Entitic vol] 11.0 fL Normal 9.5-13.5 [facility] Comment on above: Performed By: #### T HCCONF #### [facility] [address] [place] [address] Dr. Homero Damon PLT 312 103/ul Normal 150-450 [facility] Comment on above: Performed By: #### T HCCONF #### [facility] [address] [place], [place] [id number] Dr. Homero Damon RBC 4.68 106/ul Normal 4.20-5.40 [facility] Comment on above: Performed By: #### T HCCONF #### [facility] [address] [place] [address] Dr. Homero Damon WBC 9.6 103/ul Normal 4.0-11.0 [facility] Comment on above: Performed By: #### T HCCONF #### [facility] [address] [place] [address] Dr. Homero Damon Covid-19 PCR (CVDTBH)on 02-13 SARS-CoV-2 (COVID-19) RNA LORRAINE+probe Ql (Unsp spec) Not detected Normal NOT DETECTED [facility] Comment on above: Result Comment: When diagnostic [...] for this test is supported by the [place] of Health and Human Service's declaration that [...] used). Performed By: #### C VDTBH #### [facility] [address] [place] [address] Dr. Homero Damon DRUG SCREEN RAPID (URINE)on 03-13-2022 AMP Negative Normal NEGATIVE [facility] Comment on above: Performed By: #### D RUGRPD #### [facility] [address] [place] [address] Dr. Homero Damon BAR Negative Normal NEGATIVE [facility] Comment on above: Performed By: #### D RUGRPD #### [facility] [address] [place] [address] Dr. Homero Damon BUP Negative Normal NEGATIVE [facility] Comment on above: Performed By: #### D RUGRPD #### [facility] [address] [place] [address] Dr. Homero Damon BZO Negative Normal NEGATIVE [facility] Comment on above: Performed By: #### D RUGRPD #### [facility] [address] [place] [address] Dr. Homero Damon MADHURI Negative Normal NEGATIVE [facility] Comment on above: Performed By: #### D RUGRPD #### [facility] [address] [place] [address] Dr. Homero Damon CUT-OFFS SEE BELOW Normal [facility] Comment on above: Result Comment: AMP [...] ng/mL Performed By: #### D RUGRPD #### [facility] [address] [place] [address] Dr. Homero Damon DRUG CUT HEADER DRUG CLASS TEST SYSTEM CUT-OFF CONCENTRATIONS ARE FOLLOWS: Normal [facility] Comment on above: Performed By: #### D RUGRPD #### [facility] [address] [place] [address] Dr. Homero Damon mAMP Negative Normal NEGATIVE [facility] Comment on above: Performed By: #### D RUGRPD #### [facility] [address] [place] [address] Dr. Homero Damon MTD Negative Normal NEGATIVE [facility] Comment on above: Performed By: #### D RUGRPD #### [facility] [address] [address] [address] Homero Damon OPI Negative Normal NEGATIVE [facility] Comment on above: Performed By: #### D RUGRPD #### [facility] [address] [address] [address] Homero Damon OXY Negative Normal NEGATIVE [facility] Comment on above: Performed By: #### D RUGRPD #### [facility] [address] [address] [address] Homero Damon PCP Negative Normal NEGATIVE [facility] Comment on above: Performed By: #### D RUGRPD #### [facility] [address] [place] [address] Dr. Homero Damon PPX Negative Normal NEGATIVE [facility] Comment on above: Performed By: #### D RUGRPD #### [facility] [address] [place] [address] Dr. Homero Damon TCA Negative Normal NEGATIVE [facility] Comment on above: Performed By: #### D RUGRPD #### [facility] [address] [place] [address] Dr. Homero Damon THC Positive Abnormal NEGATIVE [facility] Comment on above: Performed By: #### D RUGRPD #### [facility] [address] [place] [address] Dr. Homero Damon TYPE AND SCREENon 03-13-2022 TYPE AND SCREEN Negative Normal [facility] Comment on above: Performed By: #### T HCCONF #### [facility] [address] [place] [address] Dr. 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 Homero Damon Clarity (U) CLEAR Normal CLEAR [facility] Comment on above: Performed By: #### U ACSIND #### [facility] [address] [address] [address] Homero Damon Color (U) YELLOW Normal YELLOW [facility] Comment on above: Performed By: #### U ACSIND #### [facility] [address] [address] [address] Homero Damon Glucose Ql (U) Negative Normal NEGATIVE [facility] Comment on above: Performed By: #### U ACSIND #### [facility] [address] [place] [address] Dr. Homero Damon Hemoglobin Ql (U) Negative Normal NEGATIVE [facility] Comment on above: Performed By: #### U ACSIND #### [facility] [address] [address] [address] Homero Damon Ketones Ql (U) Negative Normal NEGATIVE [facility] Comment on above: Performed By: #### U ACSIND #### [facility] [address] [place] [address] Dr. Homero Damon LEUKOCYTES Negative Normal NEGATIVE [facility] Comment on above: Performed By: #### U ACSIND #### [facility] [address] [place] [address] Dr. Homero Damon Nitrite Ql (U) Negative Normal NEGATIVE [facility] Comment on above: Performed By: #### U ACSIND #### [facility] [address] [place] [address] Dr. Homero Damon pH (U) 6.0 [pH] Normal 5-9 [facility] Comment on above: Performed By: #### U ACSIND #### [facility] [address] [place] [address] Dr. Homero Damon SPEC GRAVITY 1.025 Normal 1.005-<=1.025 [facility] Comment on above: Performed By: #### U ACSIND #### [facility] [address] [place] [address] Dr. Homero Damon UA PROTEIN Negative Normal NEGATIVE/ TRACE [facility] Comment on above: Performed By: #### U ACSIND #### [facility] [address] [place] [address] Dr. Homero Damon UR MICRO IND NOT INDICATED Normal [facility] Comment on above: Performed By: #### U ACSIND #### [facility] [address] [place] [address] Dr. Homero Damon Urobilinogen Qn (U) 1.0 {Saad'U}/dL Normal 0.2 - 1. 0 [facility] Comment on above: Performed By: #### U ACSIND #### [facility] [address] [place] [address] Dr. Homero Damon GROUP B STREP CULTUREon 02-11 S. agalactiae Ag Ql (Unsp spec) Culture Observations: Called Group B Strep to Millie Armando, [employer] on 02/25 @ 0917 Isolate 1 Streptococcus agalactiae Moderate growth of ORGANISM 1 Streptococcus agalactiae ANTIBIOTIC M.I.C RX STATUS Benzylpenicillin <=0.06 S F Ampicillin <=0.25 S F Cefotaxime <=0.12 S F Ceftriaxone <=0.12 S F Levofloxacin 0.5 S F Erythromycin >=8 R F Clindamycin >=1 R F Linezolid <=2 S F Vancomycin 0.5 S F Tetracycline >=16 R F Normal [facility] Comment on above: Performed By: #### T HCCONF #### [facility] [address] [place] [address] Dr. Homero Damon CULTURE URINEon 02-23-2022 CULTURE [...] F Trimethoprim/Sulfame thoxazole <=20 S F Normal [facility] Comment on above: Performed By: #### U RCX #### [facility] [address] [address] [address] Homero Damon UA RANDOM W/MICROSCOPICon BACTERIA LARGE Abnormal NONE SEEN [facility] Comment on above: Performed By: #### U AMIC #### [facility] [address] [address] [address] Homero Damon Bilirubin Ql (U) Negative Normal NEGATIVE The [facility] Comment on above: Performed By: #### U AMIC #### [facility] [address] [address] [address] Homero Damon CAST NONE SEEN Normal NONE SEEN [facility] Comment on above: Performed By: #### U AMIC #### [facility] [address] [place] [address] Dr. Homero Damon Clarity (U) CLEAR Normal CLEAR [facility] Comment on above: Performed By: #### U AMIC #### [facility] [address] [place] [address] Dr. Homero Damon Color (U) LT. YELLOW Normal YELLOW [facility] Comment on above: Performed By: #### U AMIC #### [facility] [address] [address] [address] Homero Damon Crystals LM Nom (Urine sed) NONE SEEN Normal NONE SEEN [facility] Comment on above: Performed By: #### U AMIC #### [facility] [address] [place] [address] Dr. Homero Damon Epithelial cells LM Ql (Urine sed) FEW Abnormal NONE SEEN /RARE [facility] Comment on above: Performed By: #### U AMIC #### [facility] [address] [place] [address] Dr. Homero Damon Glucose Ql (U) Negative Normal NEGATIVE The [facility] Comment on above: Performed By: #### U AMIC #### [facility] [address] [place] [address] Dr. Homero Damon Hemoglobin Ql (U) Negative Normal NEGATIVE The [facility] Comment on above: Performed By: #### U AMIC #### [facility] [address] [place] [address] Dr. Homero Damon Ketones Ql (U) TRACE Abnormal NEGATIVE The [facility] Comment on above: Performed By: #### U AMIC #### [facility] [address] [place] [address] Dr. Homero Damon LEUKOCYTES TRACE Abnormal NEGATIVE [facility] Comment on above: Performed By: #### U AMIC #### [facility] [address] [place] [address] Dr. Homero Damon MUCOUS NONE SEEN Normal NONE SEEN [facility] Comment on above: Performed By: #### U AMIC #### [facility] [address] [place] [address] Dr. Homero Damon Nitrite Ql (U) Negative Normal NEGATIVE The [facility] Comment on above: Performed By: #### U AMIC #### [facility] [address] [place] [address] Dr. Homero Damon pH (U) 6.0 [pH] Normal 5-9 [facility] Comment on above: Performed By: #### U AMIC #### [facility] [address] [place] [address] Dr. Homero Damon RBC NONE SEEN Abnormal 0-2 [facility] Comment on above: Performed By: #### U AMIC #### [facility] [address] [place] [address] Dr. Homero Damon SPEC GRAVITY 1.025 Normal 1.005-<=1.025 The [facility] Comment on above: Performed By: #### U AMIC #### [facility] [address] [place] [address] Dr. Homero Damon UA PROTEIN Negative Normal NEGATIVE/ TRACE [facility] Comment on above: Performed By: #### U AMIC #### [facility] [address] [place] [address] Dr. Homero Damon Urobilinogen Qn (U) 0.2 {Saad'U}/dL Normal 0.2 - 1. 0 [facility] Comment on above: Performed By: #### U AMIC #### [facility] [address] [place] [address] Dr. Homero Damon WBC 5-10 Abnormal NONE SEEN [facility] Comment on above: Performed By: #### U AMIC #### [facility] [address] [place] [address] Dr. Homero Damon GLUCOSE - 1HRon 12-12-2021 Glucose [Mass/Vol] 128 mg/dL Critically high 74-106 T [facility] Comment on above: Performed By: #### G LU1HR #### [facility] [address] [place] [address] Dr. Homero Damon HEMOGRAM AND PLATELon 2021 Hematocrit (Bld) [Volume fraction] 38.8 % Normal 36.0-48.0 [facility] Comment on above: Performed By: #### H H #### [facility] [address] [place] [address] Dr. Homero Damon Hemoglobin (Bld) [Mass/Vol] 12.3 g/dL Normal 12.0-16.0 [facility] Comment on above: Performed By: #### H H #### [facility] [address] [place] [address] Dr. Homero Damon MCH (RBC) [Entitic mass] 25.8 pg Critically low 26.7-34.0 [facility] Comment on above: Performed By: #### H H #### [facility] [address] [place] [address] Dr. Homero Damon MCHC (RBC) [Mass/Vol] 31.7 g/dL Normal 29.9-35.2 [facility] Comment on above: Performed By: #### H H #### [facility] [address] [place] [address] Dr. Homero Damon MCV (RBC) [Entitic vol] 81.3 fL Normal 81.0-99.0 [facility] Comment on above: Performed By: #### H H #### [facility] [address] [place] [address] Dr. Homero Damon PLT 304 103/ul Normal 150-450 [facility] Comment on above: Performed By: #### H H #### [facility] [address] [place] [address] Dr. Homero Damon RBC 4.77 106/ul Normal 4.20-5.40 [facility] Comment on above: Performed By: #### H H #### [facility] [address] [place] [address] Dr. Homero Damon WBC 9.9 103/ul Normal 4.0-11.0 [facility] Comment on above: Performed By: #### H H #### [facility] [address] [place] [address] Dr. Homero Damon CULTURE URINEon 12-06-2021 CULTURE [...] F Trimethoprim/Sulfame thoxazole <=20 S F Normal [facility] Comment on above: Performed By: #### T HCCONF #### [facility] [address] [place] [address] Dr. Homero Damon Social History Date Type Detail Facility Start: 08-20-2023 End: 09-03-2023 Alcohol intake Current non-drinker of alcohol (finding) [facility] Start: 08-24-2020 End: 08-20-2023 History of Social function [facility] Start: 08-24-2020 End: 08-20-[address] [facility] Start: 06-13-2023 Gender identity Identifies as female gender (finding) [facility] Start: 04-14-2023 [facility] Start: 04-08-2017 End: 09-03-2023 Tobacco smoking status NHIS Never smoked tobacco [facility] Start: 04-08-2017 End: 09-03-2023 Tobacco use and exposure Smokeless tobacco non-user [facility] Start: 2000 Sex Assigned At Not on file [facility] Childcare Unknown [facility] Vital Signs Date Time Vital Sign Value Performing Clinician Jade rendon 09-03-2023 10:39-0500 Body height 160 cm Marielena Hernandez MD Work Phone: [facility] 09-03-2023 10:39-0500 Body mass index (BMI) [Ratio] 41.45 kg/m2 Marielena Hernandez MD Work Phone: [facility] 09-03-2023 10:39-0500 Body weight 106.14 kg Marielena Hrenandez MD Work Phone: [facility] 09-03-2023 10:39-0500 Diastolic blood pressure 88 mm[Hg] Marielena Hernandez MD Work Phone: [facility] 09-03-2023 10:39-0500 Heart rate 98 /min Marielena Hernandez MD Work Phone: [facility] 09-03-2023 10:39-0500 Systolic blood pressure 123 mm[Hg] Marielena Hernandez MD Work Phone: [facility] 08-21-2023 10:31-0500 Body mass index (BMI) [Ratio] 43.48 kg/m2 Trisha CASTELLANOS Work Phone: [facility] 08-21-2023 10:31-0500 Body weight 104.38 kg Trisha CASTELLANOS Work Phone: [facility] 08-21-2023 10:31-0500 Diastolic blood pressure 60 mm[Hg] Trisha CASTELLANOS Work Phone: [facility] 08-21-2023 10:31-0500 Systolic blood pressure 118 mm[Hg] Trisha CASTELLANOS Work Phone: [facility] History of Present illness Narrative 09-03-2023 Ector [...] Have you been seen here at [facility] in a previous ? No Recent ER visits or hospitalizations? No Bring blood sugar log or meter with you today? (Please bring them with you for every visit at [facility]) N/A Traveled outside the country in [...] TESTS AND ULTRASOUND REPORTS: Referral [facility] and [facility] were reviewed Pertinent Ultrasound [...] patient is in complete care of her metrology manager. Patient does have ultrasound and office [...] Referring and communicating with other health care transition manager (not separately reported) Documenting clinical information in the electronic or other health record Marielena Hernandez MD Maternal- Medicine [facility] [address] [place] [address] [facility], the CDC, and other organizations representing maternal and public health professionals recommend that , , and lactating people and those considering receive the COVID-19 vaccination. Vaccination is the best method to reduce maternal and complications of SARS-CoV-2 infection. This document was created with [employer] technology. Though I make every effort to review the dictation as it is transcribed, on occasion the spoken word can be misinterpreted by the technology leading to inappropriate words, phrases, or sentences. This note is addressed to the requesting provider as a consultation for clinical guidance. Specific medical abbreviations are occasionally used and those are generally approved by the [place]?Board of?Obstetrics and?Gynecology?as well as?[place] s abbreviations. The above plan of care was based solely on the diagnoses for which a consultation was requested. ?More frequent testing may be indicated based on her other medical/obstetrical conditions. The management of other or medical conditions is beyond the scope of requested consultation and will continue to be followed by the primary metrology manager or primary care provider. Note to [...] of the practitioner. documented in this encounter [facility] History of Present illness Narrative 08-21-2023 EMANUEL [...] obesity with alveolar hypoventilation affecting , antepartum ([facility]) documented in this encounter [employer] Instructions Note Date & Type Note Facility Instructions Not on filedocumented in this en counter [employer] Instructions Note Date & Type Note Facility Instructions Not on filedocumented [facility] this [facility] Summary Purpose Family History No Family History Records FoundNo Family History Records FoundNo Family History Records Found Advance Directives No Advanced Directives Records FoundNo Advanced Directives Records FoundNo Advanced Directives Records Found Additional Source Comments INFORMATION SOURCE (unrecogn ized section and content) DATE CREATED AUTHOR 11/20/2022 [facility] DATE CREATED AUTHOR AUTHOR'S ORGANIZ ATION 09/10/2023 [facility] DATE CREATED AUTHOR AUTHOR'S ORGANIZ ATION 12/12/2023 [facility] EPIC Reason for Visit [...] BE BASED ON THE PRIMARY CLINICAL RECORDS. [facility] [employer] provides no warranty or guarantee of the accuracy or completeness of information in this document.
--- NOTE | 2023-12-17 11:09 | US_ITS ---
[address] [address] Patient Name: JULIANA MICHELE MRN: [id number] date: 2000 Sex: F Assigned Patient Location: [facility] Current Patient Location: Accession/Order Number: [id number] Exam Date: 12/17/2023 11:10 Report Date: 12/17/2023 14:06 At the request of: LEA MATSON Procedure: US OB growth EXAMINATION: US OB growth HISTORY: GESTATIONAL DIABETES MELLITUS Z13.1 COMPARISON: Ultrasound OB growth 11/20/2023 FINDINGS: Heart Rate: 163.6 bpm Number: 1.0 Position: CEPHALIC Amniotic Fluid Volume: 11.1 cm Maximum Vertical Pocket: 3.9 cm BIOMETRY: BPD: 8.8 cm cm; 35 weeks 4 days; 21% HC: 33.6 cmcm; 38 weeks 3 days ; 55% AC: 34.8 cm cm; 38 weeks 5 days; 92% FL: 7.3 cm cm; 37 weeks 3 days; 52% EFW: 3355.4 grams; 75% FL/AC: 21.0 FL/BPD: 82.9 HC/AC: 1.0 GESTATIONAL AGE: Age by EDC: 37 weeks 2 days GILBERTO by EDC: 01/05/2024 Age by US: 37 weeks 4 days GILBERTO by US: 01/03/2024 US/US OB growth IMPRESSION: 1. Single live intrauterine with growth detailed above. Electronically authenticated by: COLLETTE BAER Date: 12/17/2023 14:06
--- NOTE | 2023-12-17 11:09 | US_ITS ---
[address] [address] Patient Name: JULIANA MICHELE MRN: [id number] date: 2000 Sex: F Assigned Patient Location: US Current Patient Location: Accession/Order Number: [id number] Exam Date: 12/17/2023 11:10 Report Date: 12/17/2023 13:59 At the request of: LEA MATSON Procedure: US OB BPP w non-stress EXAMINATION: US OB BPP w non-stress HISTORY: GESTATIONAL DIABETES MELLITUS Z13.1 COMPARISON: Ultrasound OB biophysical 12/10/2023 TECHNIQUE: Ultrasound biophysical profile was performed in the radiology department. BREATHING MOVEMENTS: 2.0 GROSS BODY MOVEMENTS: 2.0 TONE: 2.0 QUALITATIVE AMNIOTIC FLUID VOLUME: 2.0 PRESENTATION: CEPHALIC HEART RATE: 163.6 bpm bpm. AMNIOTIC FLUID VOLUME: 11.1 cm GESTATIONAL AGE: 37 weeks 2 days CONCLUSION: Total biophysical profile score 8.0. Electronically authenticated by: COLLETTE BAER Date: 12/17/2023 13:59
[2023-12-17 11:44] VITALS: BP 124/71; PULSE 108
== END 2023-12-17 12:06 | disposition home or self-care (01) ==
LOC: US 07:00 → FBC 11:06
PROVIDERS: PCP Nurse Practitioner Primary Care; Visit Provider Obstetrics & Gynecology
DX: O36.63X0 Maternal care for excessive fetal growth, third trimester, not applicable or unspecified (principal); Z13.1 Encounter for screening for diabetes mellitus; Z3A.37 37 weeks gestation of pregnancy
CPT/HCPCS: 76816; 76818

== ENCOUNTER 2023-12-20 10:10 | Outpatient (OUT) | payer MEDICAID, SELFPAY ==
--- OUTSIDE RECORDS SUMMARY | 2023-12-20 10:13 | XMS_ITS | CCD ---
Author Organization [facility]ini[employer] Care Team Providers Care Software Lead Name Role Phone PAULO ., DR GRIGGS [...] TRISHA Attending Unavailable DANO, LEA Attending Unavailable DANO, LEA Attending Unavailable Medications [...] UA Negative Negative - 4(70) +++ mg/dL [facility] Blood, UA Negative Negative - 50 Francis/mcL [facility] Clarity, UA Clear [facility] Color, UA Yellow [facility] Glucose, UA Negative Negative - 2000(110) ++++ mg/dL [facility] Interpretation and review of laboratory results Abnormal [facility] Ketones, UA Negative Negative - 160(16) ++++ mg/dL [facility] Leukocytes, UA Negative Negative - 500+++ Shravan/mcL [facility] Nitrite, UA Negative Negative - Positive [facility] pH, UA 6.0 5 - 9 [facility] Protein, UA Trace Negative - 1999(20) ++++ mg/dL [facility] Spec Grav, UA 1.030 1 - 1.03 [facility] Urobilinogen, UA 0.2 0.2 - 12 mg/dL [facility] AFP Single Marker ScrnRalph rnal, Serumon 07-26-2023 Ms Alpha-Fetoprotein Negative [facility] Free Cell DNAon 2022 Free Cell Dna LOW RISK [facility] CBC without diffon Hematocrit (Bld) [Volume fraction] 38.7 % [facility] Hemoglobin (Bld) [Mass/Vol] 12.0 g/dL [facility] Platelets (Bld) [#/Vol] 365 10*3/uL [facility] HIV 1&2 AB/AG Screen (P24 AG )on 06-20-2023 HIV 1&2 AB/AG Non-Reactive [facility] Hepatitis B surface antigeno n 06-20-2023 Hepatitis B Surface Antigen Negative [facility] Hepatitis C(HCV) Ab w/ Refle x to PCRon 06-20-2023 HCV Ab Ql (S) Non-Reactive [facility] No Panel InformationOrdered By: Nicky Miles on 06-20-2023 [facility] Rubella IGG immune statuson 06-20-2023 Rubella immune IgG 2.23 IMMUNE [facility] Syphilis Total(Unknown Syphi lis Status)Ordered By: Nicky Miles on 06-20-2023 Syphilis Non-Reactive [facility] TSHon 06-20-2023 Thyroid Stimulating (3Rd Generation) Hormone/ Tsh 0.708 [facility] PAP ACOG PANEL 2: 21 to 29on 11-20-2022 . . Normal [facility] Comment on above: Performed By: #### [id number] #### [facility] [address] [place], [place] [address] Dr. Homero Damon Age Gdln ACOG Testing 21- Normal [facility] Comment on above: Performed By: #### [id number] #### [facility] [address] [place] [address] Dr. Homero Damon DIAGNOSIS: Comment Normal [facility] Comment on above: Result Comment: NEGA TIVE FOR INTRAEPITHELIAL LESION OR MALIGNANCY. Performed By: #### [id number] #### [facility] [address] [place] [address] Dr. Homero Damon Methodology: Comment Normal [facility] Comment on above: Result Comment: This liquid based ThinPrep(R) pap test was screened with the use of an image guided system. Performed By: #### [id number] #### [facility] [address] [place] [address] Dr. Homero Damon Note: Comment Normal [facility] Comment on above: Result Comment: The Pap smear is a screening test designed to aid in the detection of premalignant and malignant conditions of the uterine cervix. It is not a diagnostic procedure and should not be used as the sole means of detecting cervical cancer. Both false-positive and false-negative reports do occur. . Performed By: #### [id number] #### [facility] [address] [place] [address] Dr. Homero Damon Performed by: Comment Normal [facility] Comment on above: Result Comment: Haris Alexis, Dry Talc Racker (ASCP) Performed By: #### [id number] #### [facility] [address] [place] [address] Dr. Homero Damon Reflex Criteria: Comment Normal [facility] Comment on above: Result Comment: The HPV DNA reflex criteria were not met with this specimen result therefore, no HPV testing was performed. . Performed By: #### [id number] #### [facility] [address] [place] [address] Dr. Homero Damon Specimen adequacy: Comment Normal [facility] Comment on above: Result Comment: Sati sfactory for evaluation. Endocervical and/or squamous metaplastic cells (endocervical component) are present. Performed By: #### [id number] #### [facility] [address] [place] [address] Dr. Homero Damon CANNABINOID (THC) CONFIRMATI ON, URINEon 03-19-2022 Cannabinoid Positive Abnormal [facility] Comment on above: Performed By: #### T HCCONF #### [facility] [address] [place] [address] Dr. Homero Damon Carboxy THC GC/MS Conf 47 ng/mL Normal Cutoff=10 Th [facility] Comment on above: Performed By: #### T HCCONF #### [facility] [address] [place] [address] Dr. Homero Damon CBC AUTO DIFFon 03-15-2022 BASO # 0.0 103/ul Normal 0.0-0.1 [facility] Comment on above: Performed By: #### C BC #### [facility] [address] [place] [address] Dr. Homero Damon Basophils/100 WBC (Bld) 0.2 % Normal 0.2-2.0 [facility] Comment on above: Performed By: #### C BC #### [facility] [address] [place] [address] Dr. Homero Damon EO # 0.2 103/ul Normal 0.0-0.7 [facility] Comment on above: Performed By: #### C BC #### [facility] [address] [place] [address] Dr. Homero Damon Eosinophils/100 WBC (Bld) 1.5 % Normal 0.9-7.0 [facility] Comment on above: Performed By: #### C BC #### [facility] [address] [place] [address] Dr. Homero Damon Erythrocyte distribution width (RBC) [Ratio] 16.1 % Critically high 11.0-15.0 [facility] Comment on above: Performed By: #### C BC #### [facility] [address] [place] [address] Dr. Homero Damon Hematocrit (Bld) [Volume fraction] 32.7 % Critically low 36.0-48.0 [facility] Comment on above: Performed By: #### C BC #### [facility] [address] [place] [address] Dr. Homero Damon Hemoglobin (Bld) [Mass/Vol] 9.7 g/dL Critically low 12.0-16.0 [facility] Comment on above: Performed By: #### C BC #### [facility] [address] [place] [address] Dr. Homero Damon IG # 0.04 10e3/ul Critically high 0.00-0.03 [facility] Comment on above: Performed By: #### C BC #### [facility] [address] [place] [address] Dr. Homero Damon IG % 0.4 % Normal 0.0-0.5 [facility] Comment on above: Performed By: #### C BC #### [facility] [address] [place] [address] Dr. Homero Damon LYMPH # 3.5 103/ul Normal 1.2-3.8 [facility] Comment on above: Performed By: #### C BC #### [facility] [address] [place] [address] Dr. Homero Damon Lymphocytes/100 WBC (Bld) 32.9 % Normal 20.5-60.0 [facility] Comment on above: Performed By: #### C BC #### [facility] [address] [place] [address] Dr. Homero Damon MANUAL DIFF REQ NO Normal [facility] Comment on above: Performed By: #### C BC #### [facility] [address] [place] [address] Dr. Homero aDmon MCH (RBC) [Entitic mass] 23.0 pg Critically low 26.7-34.0 [facility] Comment on above: Performed By: #### C BC #### [facility] [address] [place] [address] Dr. Homero Damon MCHC (RBC) [Mass/Vol] 29.7 g/dL Critically low 29.9-35.2 [facility] Comment on above: Performed By: #### C BC #### [facility] [address] [place] [address] Dr. Homero Damon MCV (RBC) [Entitic vol] 77.7 fL Critically low 81.0-99.0 [facility] Comment on above: Performed By: #### C BC #### [facility] [address] [place] [address] Dr. Homero Damon MONO # 0.8 103/ul Normal 0.3-0.8 [facility] Comment on above: Performed By: #### C BC #### [facility] [address] [place] [address] Dr. Homero Damon Monocytes/100 WBC (Bld) 7.1 % Normal 1.7-12.0 [facility] Comment on above: Performed By: #### C BC #### [facility] [address] [place] [address] Dr. Homero Damon NEUT # 6.1 103/ul Normal 1.4-6.5 [facility] Comment on above: Performed By: #### C BC #### [facility] [address] [place] [address] Dr. Homero Damon Neutrophils/100 WBC (Bld) 57.9 % Normal 43.0-75.0 [facility] Comment on above: Performed By: #### C BC #### [facility] [address] [place] [address] Dr. Homero Damon Platelet mean volume (Bld) [Entitic vol] 11.0 fL Normal 9.5-13.5 [facility] Comment on above: Performed By: #### C BC #### [facility] [address] [place] [address] Dr. Homero Damon PLT 253 103/ul Normal 150-450 [facility] Comment on above: Performed By: #### C BC #### [facility] [address] [place] [address] Dr. Homero Damon RBC 4.21 106/ul Normal 4.20-5.40 [facility] Comment on above: Performed By: #### C BC #### [facility] [address] [place] [address] Dr. Homero Damon WBC 10.6 103/ul Normal 4.0-11.0 [facility] Comment on above: Performed By: #### C BC #### [facility] [address] [place] [address] Dr. Homero Damon CBC AUTO DIFFon 03-13-2022 BASO # 0.0 103/ul Normal 0.0-0.1 [facility] Comment on above: Performed By: #### T HCCONF #### [facility] [address] [place] [address] Dr. Homero Damon Basophils/100 WBC (Bld) 0.3 % Normal 0.2-2.0 [facility] Comment on above: Performed By: #### T HCCONF #### [facility] [address] [place] [address] Dr. Homero Damon EO # 0.0 103/ul Normal 0.0-0.7 [facility] Comment on above: Performed By: #### T HCCONF #### [facility] [address] [place] [address] Dr. Homero Damon Eosinophils/100 WBC (Bld) 0.2 % Critically low 0.9-7.0 [facility] Comment on above: Performed By: #### T HCCONF #### [facility] [address] [place] [address] Dr. Homero Damon Erythrocyte distribution width (RBC) [Ratio] 16.0 % Critically high 11.0-15.0 [facility] Comment on above: Performed By: #### T HCCONF #### [facility] [address] [place] [address] Dr. Homero Damon Hematocrit (Bld) [Volume fraction] 35.3 % Critically low 36.0-48.0 [facility] Comment on above: Performed By: #### T HCCONF #### [facility] [address] [place] [address] Dr. Homero Damon Hemoglobin (Bld) [Mass/Vol] 11.0 g/dL Critically low 12.0-16.0 [facility] Comment on above: Performed By: #### T HCCONF #### [facility] [address] [place] [address] Dr. Homero Damon IG # 0.04 10e3/ul Critically high 0.00-0.03 [facility] Comment on above: Performed By: #### T HCCONF #### [facility] [address] [place] [address] Dr. Homero Damon IG % 0.4 % Normal 0.0-0.5 [facility] Comment on above: Performed By: #### T HCCONF #### [facility] [address] [place] [address] [address] Homero Damon LYMPH # 2.5 103/ul Normal 1.2-3.8 [facility] Comment on above: Performed By: #### T HCCONF #### [facility] [address] [place] [address] Dr. Homero Damon Lymphocytes/100 WBC (Bld) 26.4 % Normal 20.5-60.0 [facility] Comment on above: Performed By: #### T HCCONF #### [facility] [address] [place] [address] Dr. Homero Damon MANUAL DIFF REQ NO Normal [facility] Comment on above: Performed By: #### T HCCONF #### [facility] [address] [place] [address] Dr. Homero Damon MCH (RBC) [Entitic mass] 23.5 pg Critically low 26.7-34.0 [facility] Comment on above: Performed By: #### T HCCONF #### [facility] [address] [place] [address] Dr. Homero Damon MCHC (RBC) [Mass/Vol] 31.2 g/dL Normal 29.9-35.2 [facility] Comment on above: Performed By: #### T HCCONF #### [facility] [address] [place] [address] Dr. Homero Damon MCV (RBC) [Entitic vol] 75.4 fL Critically low 81.0-99.0 [facility] Comment on above: Performed By: #### T HCCONF #### [facility] [address] [place] [address] Dr. Homero Damon MONO # 0.6 103/ul Normal 0.3-0.8 [facility] Comment on above: Performed By: #### T HCCONF #### [facility] [address] [place] [address] Dr. Homero Damon Monocytes/100 WBC (Bld) 6.4 % Normal 1.7-12.0 [facility] Comment on above: Performed By: #### T HCCONF #### [facility] [address] [place] [address] Dr. Homero Damon NEUT # 6.4 103/ul Normal 1.4-6.5 [facility] Comment on above: Performed By: #### T HCCONF #### [facility] [address] [place] [address] Dr. Homero Damon Neutrophils/100 WBC (Bld) 66.3 % Normal 43.0-75.0 [facility] Comment on above: Performed By: #### T HCCONF #### [facility] [address] [place] [address] Dr. Homero Damon Platelet mean volume (Bld) [Entitic vol] 11.0 fL Normal 9.5-13.5 [facility] Comment on above: Performed By: #### T HCCONF #### [facility] [address] [place] [address] Dr. Homero Damon PLT 312 103/ul Normal 150-450 [facility] Comment on above: Performed By: #### T HCCONF #### [facility] [address] [place] [address] Dr. Homero Damon RBC 4.68 106/ul Normal 4.20-5.40 [facility] Comment on above: Performed By: #### T HCCONF #### [facility] [address] [place] [address] Dr. Homero Damon WBC 9.6 103/ul Normal 4.0-11.0 [facility] Comment on above: Performed By: #### T HCCONF #### [facility] [address] [place] [address] Dr. Homero Damon Covid-19 PCR (CVDTBH)on 02-13 SARS-CoV-2 (COVID-19) RNA LORRAINE+probe Ql (Unsp spec) Not detected Normal NOT DETECTED [facility] Comment on above: Result Comment: When diagnostic [...] for this test is supported by the [place] of Health and Human Service's declaration that [...] used). Performed By: #### C VDTBH #### [facility] [address] [place] [address] Dr. Homero Damon DRUG SCREEN RAPID (URINE)on 03-13-2022 AMP Negative Normal NEGATIVE [facility] Comment on above: Performed By: #### D RUGRPD #### [facility] [address] [place] [address] Dr. Homero Damon BAR Negative Normal NEGATIVE [facility] Comment on above: Performed By: #### D RUGRPD #### [facility] [address] [place] [address] Dr. Homero Damon BUP Negative Normal NEGATIVE [facility] Comment on above: Performed By: #### D RUGRPD #### [facility] [address] [place] [address] Dr. Homero Damon BZO Negative Normal NEGATIVE [facility] Comment on above: Performed By: #### D RUGRPD #### [facility] [address] [place] [address] Dr. Homero Damon MADHURI Negative Normal NEGATIVE [facility] Comment on above: Performed By: #### D RUGRPD #### [facility] [address] [place] [address] Dr. Homero Damon CUT-OFFS SEE BELOW Normal [facility] Comment on above: Result Comment: AMP [...] ng/mL Performed By: #### D RUGRPD #### [facility] [address] [place] [address] Dr. Homero Damon DRUG CUT HEADER DRUG CLASS TEST SYSTEM CUT-OFF CONCENTRATIONS ARE FOLLOWS: Normal [facility] Comment on above: Performed By: #### D RUGRPD #### [facility] [address] [place] [address] Dr. Homero Damon mAMP Negative Normal NEGATIVE [facility] Comment on above: Performed By: #### D RUGRPD #### [facility] [address] [place] [address] Dr. Homero Damon MTD Negative Normal NEGATIVE [facility] Comment on above: Performed By: #### D RUGRPD #### [facility] [address] [place] [address] Dr. Homero Damon OPI Negative Normal NEGATIVE [facility] Comment on above: Performed By: #### D RUGRPD #### [facility] [address] [place] [address] Dr. Homero Damon OXY Negative Normal NEGATIVE [facility] Comment on above: Performed By: #### D RUGRPD #### [facility] [address] [place] [address] Dr. Homero Damon PCP Negative Normal NEGATIVE [facility] Comment on above: Performed By: #### D RUGRPD #### [facility] [address] [place] [address] Dr. Homero Damon PPX Negative Normal NEGATIVE [facility] Comment on above: Performed By: #### D RUGRPD #### [facility] [address] [place] [address] Dr. Homero Damon TCA Negative Normal NEGATIVE [facility] Comment on above: Performed By: #### D RUGRPD #### [facility] [address] [place] [address] Dr. Homero Damon THC Positive Abnormal NEGATIVE [facility] Comment on above: Performed By: #### D RUGRPD #### [facility] [address] [place] [address] Dr. Homero Damon TYPE AND SCREENon 03-13-2022 TYPE AND SCREEN Negative Normal [facility] Comment on above: Performed By: #### T HCCONF #### [facility] [address] [place] [address] Dr. Homero Damon UA (CLEAN/CATCH) CONSTRUCTION IRONWORKER HELPER/MICRO I F IND.on 03-10-2022 Bilirubin Ql (U) Negative Normal NEGATIVE [facility] Comment on above: Performed By: #### U ACSIND #### [facility] [address] [place] [address] Dr. Homero Damon Clarity (U) CLEAR Normal CLEAR [facility] Comment on above: Performed By: #### U ACSIND #### [facility] [address] [place] [address] Dr. Homero Damno Color (U) YELLOW Normal YELLOW [facility] Comment on above: Performed By: #### U ACSIND #### [facility] [address] [place] [address] Dr. Homero Damon Glucose Ql (U) Negative Normal NEGATIVE [facility] Comment on above: Performed By: #### U ACSIND #### [facility] [address] [place] [address] Dr. Homero Damon Hemoglobin Ql (U) Negative Normal NEGATIVE [facility] Comment on above: Performed By: #### U ACSIND #### [facility] [address] [address] [address] Homero Damon Ketones Ql (U) Negative Normal NEGATIVE [facility] Comment on above: Performed By: #### U ACSIND #### [facility] [address] [place] [address] Dr. Homero Damon LEUKOCYTES Negative Normal NEGATIVE [facility] Comment on above: Performed By: #### U ACSIND #### [facility] [address] [address] [address] Homero Damon Nitrite Ql (U) Negative Normal NEGATIVE [facility] Comment on above: Performed By: #### U ACSIND #### [facility] [address] [place] [address] Dr. Homero Damon pH (U) 6.0 [pH] Normal 5-9 [facility] Comment on above: Performed By: #### U ACSIND #### [facility] [address] [place] [address] Dr. Homero Damon SPEC GRAVITY 1.025 Normal 1.005-<=1.025 [facility] Comment on above: Performed By: #### U ACSIND #### [facility] [address] [place] [address] Dr. Homero Damon UA PROTEIN Negative Normal NEGATIVE/ TRACE [facility] Comment on above: Performed By: #### U ACSIND #### [facility] [address] [place] [address] Dr. Homero Damon UR MICRO IND NOT INDICATED Normal [facility] Comment on above: Performed By: #### U ACSIND #### [facility] [address] [place] [address] Dr. Homero Damon Urobilinogen Qn (U) 1.0 {Saad'U}/dL Normal 0.2 - 1. 0 [facility] Comment on above: Performed By: #### U ACSIND #### [facility] [address] [place] [address] Dr. Homero Damon GROUP B STREP CULTUREon 02-11 S. agalactiae Ag Ql (Unsp spec) Culture Observations: Called Group B Strep to Millie Armando, Loom Winder Tender on 02/25 @ 0905 Isolate 1 Streptococcus agalactiae Moderate growth of ORGANISM 1 Streptococcus agalactiae ANTIBIOTIC M.I.C RX STATUS Benzylpenicillin <=0.06 S F Ampicillin <=0.25 S F Cefotaxime <=0.12 S F Ceftriaxone <=0.12 S F Levofloxacin 0.5 S F Erythromycin >=8 R F Clindamycin >=1 R F Linezolid <=2 S F Vancomycin 0.5 S F Tetracycline >=16 R F Normal [facility] Comment on above: Performed By: #### T HCCONF #### [facility] [address] [place] [address] Dr. Homero Damon CULTURE URINEon 02-23-2022 CULTURE [...] Trimethoprim/Sulfame thoxazole <=20 S F Normal [facility] Comment on above: Performed By: #### U RCX #### [facility] [address] [place] [address] Dr. Homero Damon UA RANDOM W/MICROSCOPICon BACTERIA LARGE Abnormal NONE SEEN [facility] Comment on above: Performed By: #### U AMIC #### [facility] [address] [place] [address] Dr. Homero Damon Bilirubin Ql (U) Negative Normal NEGATIVE [facility] Comment on above: Performed By: #### U AMIC #### [facility] [address] [place] [address] Dr. Homero Damon CAST NONE SEEN Normal NONE SEEN [facility] Comment on above: Performed By: #### U AMIC #### [facility] [address] [address] [address] Homero Damon Clarity (U) CLEAR Normal CLEAR [facility] Comment on above: Performed By: #### U AMIC #### [facility] [address] [address] [address] Homero Damon Color (U) LT. YELLOW Normal YELLOW [facility] Comment on above: Performed By: #### U AMIC #### [facility] [address] [address] [address] Homero Damon Crystals LM Nom (Urine sed) NONE SEEN Normal NONE SEEN [facility] Comment on above: Performed By: #### U AMIC #### [facility] [address] [place] [address] Dr. Homero Damon Epithelial cells LM Ql (Urine sed) FEW Abnormal NONE SEEN /RARE [facility] Comment on above: Performed By: #### U AMIC #### [facility] [address] [place] [address] Dr. Homero Damon Glucose Ql (U) Negative Normal NEGATIVE [facility] Comment on above: Performed By: #### U AMIC #### [facility] [address] [address] [address] Homero Damon Hemoglobin Ql (U) Negative Normal NEGATIVE [facility] Comment on above: Performed By: #### U AMIC #### [facility] [address] [address] [address] Homero Damon Ketones Ql (U) TRACE Abnormal NEGATIVE [facility] Comment on above: Performed By: #### U AMIC #### [facility] [address] [address] [address] Homero Damon LEUKOCYTES TRACE Abnormal NEGATIVE [facility] Comment on above: Performed By: #### U AMIC #### [facility] [address] [address] [address] Homero Damon MUCOUS NONE SEEN Normal NONE SEEN [facility] Comment on above: Performed By: #### U AMIC #### [facility] [address] [place] [address] Dr. Homero Damon Nitrite Ql (U) Negative Normal NEGATIVE [facility] Comment on above: Performed By: #### U AMIC #### [facility] [address] [place] [address] Dr. Homero Damon pH (U) 6.0 [pH] Normal 5-9 [facility] Comment on above: Performed By: #### U AMIC #### [facility] [address] [place] [address] Dr. Homero Damon RBC NONE SEEN Abnormal 0-2 [facility] Comment on above: Performed By: #### U AMIC #### [facility] [address] [place] [address] Dr. Homero Damon SPEC GRAVITY 1.025 Normal 1.005-<=1.025 [facility] Comment on above: Performed By: #### U AMIC #### [facility] [address] [place] [address] Dr. Homero Damon UA PROTEIN Negative Normal NEGATIVE/ TRACE [facility] Comment on above: Performed By: #### U AMIC #### [facility] [address] [place] [address] Dr. Homero Damon Urobilinogen Qn (U) 0.2 {Saad'U}/dL Normal 0.2 - 1. 0 [facility] Comment on above: Performed By: #### U AMIC #### [facility] [address] [place] [address] Dr. Homero Damon WBC 5-10 Abnormal NONE SEEN [facility] Comment on above: Performed By: #### U AMIC #### [facility] [address] [place] [address] Dr. Homero Damon GLUCOSE - 1HRon 12-12-2021 Glucose [Mass/Vol] 128 mg/dL Critically high 74-106 T [facility] Comment on above: Performed By: #### G LU1HR #### [facility] [address] [place] [address] Dr. Homero Damon HEMOGRAM AND PLATELon 06-01- 2022 Hematocrit (Bld) [Volume fraction] 38.8 % Normal 36.0-48.0 [facility] Comment on above: Performed By: #### H H #### [facility] [address] [place] [address] Dr. Homero Damon Hemoglobin (Bld) [Mass/Vol] 12.3 g/dL Normal 12.0-16.0 [facility] Comment on above: Performed By: #### H H #### [facility] [address] [place] [address] Dr. Homero Damon MCH (RBC) [Entitic mass] 25.8 pg Critically low 26.7-34.0 [facility] Comment on above: Performed By: #### H H #### [facility] [address] [place] [address] Dr. Homero Damon MCHC (RBC) [Mass/Vol] 31.7 g/dL Normal 29.9-35.2 [facility] Comment on above: Performed By: #### H H #### [facility] [address] [place] [address] Dr. Homero Damon MCV (RBC) [Entitic vol] 81.3 fL Normal 81.0-99.0 [facility] Comment on above: Performed By: #### H H #### [facility] [address] [place] [address] Dr. Homero Damon PLT 304 103/ul Normal 150-450 [facility] Comment on above: Performed By: #### H H #### [facility] [address] [place] [address] Dr. Homero Damon RBC 4.77 106/ul Normal 4.20-5.40 [facility] Comment on above: Performed By: #### H H #### [facility] [address] [place] [address] Dr. Homero Damon WBC 9.9 103/ul Normal 4.0-11.0 [facility] Comment on above: Performed By: #### H H #### [facility] [address] [place] [address] Dr. Homero Damon CULTURE URINEon 12-06-2021 CULTURE [...] F Trimethoprim/Sulfame thoxazole <=20 S F Normal [facility] Comment on above: Performed By: #### [facility] #### [facility] [address] [place] [address] Dr. Homero Damon Vital Signs Date Time Vital Sign Value Performing Clinician Faci lity 09-03-2023 10:39-0500 Body height 160 cm Marielena Hernandez MD Work Phone: [facility] 09-03-2023 10:39-0500 Body mass index (BMI) [Ratio] 41.45 kg/m2 Marielena Hernandez MD Work Phone: [facility] 09-03-2023 10:39-0500 Body weight 106.14 kg Marielena Hernandez MD Work Phone: [facility] 09-03-2023 10:39-0500 Diastolic blood pressure 88 mm[Hg] Marielena Hernandez MD Work Phone: [facility] 09-03-2023 10:39-0500 Heart rate 98 /min Marielena Hernandez MD Work Phone: [facility] 09-03-2023 10:39-0500 Systolic blood pressure 123 mm[Hg] Marielena Hernandez MD Work Phone: [facility] 08-21-2023 10:31-0500 Body mass index (BMI) [Ratio] 43.48 kg/m2 Tirsha CASTELLANOS Work Phone: [facility] 08-21-2023 10:31-0500 Body weight 104.38 kg Trisha CASTELLANOS Work Phone: [facility] 08-21-2023 10:31-0500 Diastolic blood pressure 60 mm[Hg] Trisha CASTELLANOS Work Phone: [facility] 08-21-2023 10:31-0500 Systolic blood pressure 118 mm[Hg] Trisha CASTELLANOS Work Phone: [facility] Healthcare Encounters Encounter Date Encounter Type Care Provider Facility Start: 12-18-2023 End: 12-18-2023 ambulatory LEA DANO Not Available Start: 12-11-2023 End: 12-11-2023 ambulatory LEA DANO Not Available Start: 12-04-2023 End: 12-04-2023 ambulatory TRISHA BRYON Not Available Start: 11-27-2023 End: 11-27-2023 ambulatory LEA DANO Not Available Start: 11-13-2023 End: 11-13-2023 ambulatory TIRSHA BRYON Not Available Start: 10-30-2023 End: 10-30-2023 ambulatory LEA DANO Not Available Start: 10-15-2023 End: 10-15-2023 ambulatory TRISHA BRYON Not Available Start: 09-17-2023 End: 09-17-2023 ambulatory LEA DANO Not Available Start: 09-03-2023 End: 09-03-2023 ambulatory LEA R DANO [facility] Start: 09-03-2023 End: 09-03-2023 Office outpatient visit 10 minutes Marielena Hernandez MD Work Phone: [facility] [place] Comment on above: 22 weeks gestation o f (Primary Dx); Severe obesity with alveolar hypoventilation affecting , antepartum ([facility]) Start: 08-21-2023 End: 08-21-2023 Office outpatient visit 15 minutes Trisha CASTELLANOS Work Phone: [facility] Comment on above: Second trimester pre gnancy; Diabetes mellitus screening Start: 08-21-2023 End: 08-21-2023 ambulatory TRISHA SLATER Not Available Start: 08-20-2023 Chart abstracting Marielena Hernandez MD Work Phone: [facility] Start: 07-23-2023 End: 07-23-2023 ambulatory LEA COLE Not Available Start: 06-20-2023 End: 06-20-2023 ambulatory LEA COLE Not Available Start: 11-13-2022 End: 11-13-[address] INDU BATES . Facility:[facility] Start: 03-19-2022 End: 03-19-[address] INDU BATES . Facility:[facility] Start: 03-13-2022 End: 03-15-2022 Evaluation and management of inpatient DR THAO COLLAZO . Facility:[facility] Start: 03-10-2022 End: 03-10-[address] INUD BATES . Facility:[facility] Start: 02-21-2022 End: 02-21-2022 [...] Td Vaccines (8 - Td or Tdap) [facility] Start: 09-17-2023 End: 09-17-2023 Patient encounter procedure 09/17/2023 10:50 AM EST Routine [facility] [address] [place] [address] Lea Cole, DO [address] [place] [address] [facility] Start: 09-03-2023 End: 09-03-2023 Patient encounter procedure [facility] Start: 08-21-2023 End: 08-21-2024 CBC panel - Blood by Automated count CBC Lab Routine Diabetes mellitus screening Expected: 08/21/2023 (Approximate), Expires: 08/21/2024 [facility] Work Phone: Comment on above: Expected: 08/21/2023 (Approximate), Expires: 08/21/2024 Start: 08-21-2023 End: 08-21-2024 Measurement of glucose 1 hour after glucose challenge for glucose tolerance test Glucose tolerance, 1 hour Lab Routine Diabetes mellitus screening Expected: 08/21/2023 (Approximate), Expires: 08/21/2024 [facility] Comment on above: Expected: 08/21/2023 (Approximate), Expires: 08/21/2024 Start: 03-14-2023 Influenza vaccination Influenza Vacc ine [facility] Start: 2021 Screening for malign ant neoplasm of cervix Pap Smear [facility] Start: 2019 DTaP,Tdap and Td Vaccines (1 - Tdap) DTaP,Tdap and Td Vaccines (1 - Tdap) [facility] Start: 2018 Adult BMI Follow Up Plan Adult BMI Follow Up Plan [facility] Start: 2018 Adult BMI Screening Adult BMI Screen ing [facility] Start: 2012 Depression Screening Depression Scre ening [facility] Start: 2012 Tobacco Screening Tobacco Screening [facility] Immunizations Immunization Date Immunization Notes Care Provider Dioni noe 06-03-2013 influenza virus vaccine, unspecified formulation Marielena Hernandez MD Work Phone: [facility] Payers Date Payer Category Payer Medicaid [id number] 2022 Medicaid [id number] 2022 Medicaid [id number] 2000 Unknown [id number] 2.16.84 0.1.435763.3.579.2.593 2000 Unknown [id number] 2.16.84 0.1.005244.3.579.2.593 2000 Unknown [id number] 2.16.84 0.1.140830.3.579.2.593 2000 Unknown [id number] 2.16.84 0.1.937602.3.579.2.593 2000 Unknown [id number] 2.16.84 0.1.561070.3.579.2.593 2000 Unknown [id number] 2.16.84 0.1.424145.3.579.2.593 2000 Unknown [id number] 2.16.84 0.1.085578.3.579.2.593 2000 Unknown [id number] 2.16.8 40.1.228163.3.579.2.1286 2000 Unknown [id number] 2.16.8 40.1.407227.3.579.2.1286 2000 Unknown [id number] 2.16.84 0.1.328681.3.579.2.1259 2000 Unknown [id number] 2.16.84 0.1.064501.3.579.2.1259 2000 Unknown [id number] 2.16.84 0.1.452225.3.579.2.9 2000 Unknown [id number] 2.16.84 0.1.527942.3.579.2.1259 2000 Unknown [id number] 2.16.84 0.1.859230.3.579.2.9 2000 Unknown [id number] 2.16.84 0.1.007094.3.579.2.1259 2000 Unknown [id number] 2.16.84 0.1.014469.3.579.2.9 2000 Unknown [id number] 2.16.84 0.1.925960.3.579.2.9 2000 Unknown [id number] 2.16.84 0.1.394050.3.579.2.9 2000 Unknown [id number] 2.16.84 0.1.594202.3.579.2.1259 2000 Unknown [id number] 2.16.840 .1.288569.3.579.2.1259 1959 Unknown [id number] Social History Date Type Detail Facility Start: 04-08-2017 End: 09-03-2023 Tobacco smoking status NHIS Never smoked tobacco [facility] Start: 04-08-2017 End: 09-03-2023 Tobacco use and exposure Smokeless tobacco non-user [facility] Start: 08-20-2023 End: 09-03-2023 Alcohol intake Current non-drinker of alcohol (finding) [facility] Start: 08-24-2020 End: 08-20-2023 History of Social function [facility] Start: 08-24-2020 End: 08-20-2023 Tobacco use panel [facility] Unknown [facility] Start: 04-14-2023 [facility] Start: 2000 Sex Assigned At Not on file [facility] Start: 06-13-2023 Gender identity Identifies as [...] Yes Have you been seen here at [facility] in a previous ? No Recent ER visits or hospitalizations? No Bring blood sugar log or meter with you today? (Please bring them with you for every visit at [facility]) N/A Traveled outside the country in [...] 0 2 # Outcome Date GA Lbr [place]/2nd Weight Sex Delivery Anes PTL Lv 3 [...] patient is in complete care of her snuff container inspector. Patient does have ultrasound and office visit [...] health record Marielena Hernandez MD [facility] [id number] [facility] [address] [place] [address] [facility], the CDC, and other organizations representing maternal and public health professionals recommend that , , and lactating people and those considering receive the COVID-19 vaccination. Vaccination is the best method to reduce maternal and complications of SARS-CoV-2 infection. This document was created with [employer] technology. Though I make every effort to review the dictation as it is transcribed, on occasion the spoken word can be misinterpreted by the technology leading to inappropriate words, phrases, or sentences. This note is addressed to the requesting provider as a consultation for clinical guidance. Specific medical abbreviations are occasionally used and those are generally approved by the [place]?Board of?Obstetrics and?Gynecology?as well as?Terrance grimm abbreviations. The above plan of care was based solely on the diagnoses for which a consultation was requested. ?More frequent testing may be indicated based on her other medical/obstetrical conditions. The management of other or medical conditions is beyond the scope of requested consultation and will continue to be followed by the primary snuff container inspector or primary care provider. Note to patient: [...] of the practitioner. documented in this encounter [facility] History of Present illness Narrative 08-21-2023 EMANUEL [...] for diabetes mellitus documented in this encounter [facility] Healthcare Evaluation note Note Date & Type Note Facility Evaluation note Diagnosis 22 weeks gestation of - Primary Severe obesity with alveolar hypoventilation affecting , antepartum ([facility]) documented in this encounter [facility] [...] [facility] DATE CREATED AUTHOR AUTHOR'S ORGANIZ ATION 12/19/2023 [facility] EPIC Reason for Visit [...] BE BASED ON THE PRIMARY CLINICAL RECORDS. [facility] [employer] provides no warranty or guarantee of the accuracy or completeness of information in this document.
[2023-12-20 12:41] VITALS: BP 123/80; PULSE 101
== END 2023-12-20 12:45 | disposition home or self-care (01) ==
LOC: FBCO 10:10 → FBC 12:06
PROVIDERS: PCP Nurse Practitioner Primary Care; Visit Provider Obstetrics & Gynecology
DX: O36.63X0 Maternal care for excessive fetal growth, third trimester, not applicable or unspecified (principal)
CPT/HCPCS: 59025

== ENCOUNTER 2023-12-24 06:59 | Outpatient (OUT) | payer MEDICAID, SELFPAY ==
--- OUTSIDE RECORDS SUMMARY | 2023-12-24 07:00 | XMS_ITS | CCD ---
Author Organization [facility] CliniSyfl Care Team Providers Care Bpo Specialist Name Role Phone PAULO ., DR GRIGGS Admitting Unavailabl e HOY ., DR OUSNA Primary Care Unavailable KARASIK ., DR GRIGGS [...] Negative - 4(70) +++ mg/dL [facility] Blood, UA Negative Negative - 50 Francis/mcL [facility] Clarity, UA Clear [facility] Color, UA Yellow [facility] Glucose, UA Negative Negative - 2000(110) ++++ mg/dL [facility] Interpretation and review of laboratory results Abnormal [facility] Ketones, UA Negative Negative - 160(16) ++++ mg/dL [facility] Leukocytes, UA Negative Negative - 500+++ Shravan/mcL [facility] Nitrite, UA Negative Negative - Positive [facility] pH, UA 6.0 5 - 9 [facility] Protein, UA Trace Negative - 1999(20) ++++ mg/dL [facility] Spec Grav, UA 1.030 1 - 1.03 [facility] Urobilinogen, UA 0.2 0.2 - 12 mg/dL [facility] AFP Single Marker ScrnRalph rnal, Serumon 07-26-2023 Ms Alpha-Fetoprotein Negative [facility] Free Cell DNAon 2022 Free Cell Dna LOW RISK [facility] CBC without diffon Hematocrit (Bld) [Volume fraction] 38.7 % [facility] Hemoglobin (Bld) [Mass/Vol] 12.0 g/dL [facility] Platelets (Bld) [#/Vol] 365 10*3/uL [facility] HIV 1&2 AB/AG Screen (P24 AG )on 06-20-2023 HIV 1&2 AB/AG Non-Reactive [facility] Hepatitis B surface antigeno n 06-20-2023 Hepatitis B Surface Antigen Negative [facility] Hepatitis C(HCV) Ab w/ Refle x to PCRon 06-20-2023 HCV Ab Ql (S) Non-Reactive [facility] No Panel InformationOrdered By: Nicky Miles on 06-20-2023 [facility] Rubella IGG immune statuson 06-20-2023 Rubella immune IgG 2.23 IMMUNE [facility] Syphilis Total(Unknown Syphi lis Status)Ordered By: Nicky Miles on 06-20-2023 Syphilis Non-Reactive [facility] TSHon 06-20-2023 Thyroid Stimulating (3Rd Generation) Hormone/ Tsh 0.708 [facility] PAP ACOG PANEL 2: 21 to 29on 11-20-2022 . . Normal [facility] Comment on above: Performed By: #### [id number] #### [facility] [address], [place] [address] Dr. Homero Damon Age Gdln ACOG Testing 21- Normal [facility] Comment on above: Performed By: #### [id number] #### [facility] [address] [place] [address] Dr. Homero Damon DIAGNOSIS: Comment Normal [facility] Comment on above: Result Comment: NEGA TIVE FOR INTRAEPITHELIAL LESION OR MALIGNANCY. Performed By: #### [id number] #### [facility] [address] [place] [address] Dr. Homero Damon Methodology: Comment Normal [facility] Comment on above: Result Comment: This liquid based ThinPrep(R) pap test was screened with the use of an image guided system. Performed By: #### [id number] #### [facility] [address] [place] [address] Dr. Homero Damon Note: Comment Normal [facility] Comment on above: Result Comment: The Pap smear is a screening test designed to aid in the detection of premalignant and malignant conditions of the uterine cervix. It is not a diagnostic procedure and should not be used as the sole means of detecting cervical cancer. Both false-positive and false-negative reports do occur. . Performed By: #### [id number] #### [facility] [address] [place] [address] Dr. Homero Damon Performed by: Comment Normal [facility] Comment on above: Result Comment: Haris Alexis, Music Sound Light Technician (ASCP) Performed By: #### [id number] #### [facility] [address] [place] [address] Dr. Homero Damon Reflex Criteria: Comment Normal [facility] Comment on above: Result Comment: The HPV DNA reflex criteria were not met with this specimen result therefore, no HPV testing was performed. . Performed By: #### [id number] #### [facility] [address] [place] [address] Dr. Homero Damon Specimen adequacy: Comment Normal [facility] Comment on above: Result Comment: Sati sfactory for evaluation. Endocervical and/or squamous metaplastic cells (endocervical component) are present. Performed By: #### [id number] #### [facility] [address] [place] [address] Dr. Homero Damon CANNABINOID (THC) CONFIRMATI ON, URINEon 03-19-2022 Cannabinoid Positive Abnormal [facility] Comment on above: Performed By: #### T HCCONF #### [facility] [address] [place] [address] Dr. Homero Damon Carboxy THC GC/MS Conf 47 ng/mL Normal Cutoff=10 Th e [facility] Comment on above: Performed By: #### T HCCONF #### [facility] [address] [place] [address] Dr. Homero Damon CBC AUTO DIFFon 03-15-2022 BASO # 0.0 103/ul Normal 0.0-0.1 [facility] Comment on above: Performed By: #### C BC #### [facility] [address] [place] [address] Dr. Homero Damon Basophils/100 WBC (Bld) 0.2 % Normal 0.2-2.0 [facility] Comment on above: Performed By: #### C BC #### [facility] [address] [place] [address] Dr. Homero Damon EO # 0.2 103/ul Normal 0.0-0.7 [facility] Comment on above: Performed By: #### C BC #### [facility] [address] [place] [address] Dr. Homero Damon Eosinophils/100 WBC (Bld) 1.5 % Normal 0.9-7.0 [facility] Comment on above: Performed By: #### C BC #### [facility] [address] [place] [address] Dr. Homero Damon Erythrocyte distribution width (RBC) [Ratio] 16.1 % Critically high 11.0-15.0 [facility] Comment on above: Performed By: #### C BC #### [facility] [address] [place] [address] Dr. Homero Damon Hematocrit (Bld) [Volume fraction] 32.7 % Critically low 36.0-48.0 [facility] Comment on above: Performed By: #### C BC #### [facility] [address] [place] [address] Dr. Homero Damon Hemoglobin (Bld) [Mass/Vol] 9.7 g/dL Critically low 12.0-16.0 [facility] Comment on above: Performed By: #### C BC #### [facility] [address] [place] [address] Dr. Homero Damon IG # 0.04 10e3/ul Critically high 0.00-0.03 [facility] Comment on above: Performed By: #### C BC #### [facility] [address] [place] [address] Dr. Homero Damon IG % 0.4 % Normal 0.0-0.5 [facility] Comment on above: Performed By: #### C BC #### [facility] [address] [place] [address] Dr. Homero Damon LYMPH # 3.5 103/ul Normal 1.2-3.8 [facility] Comment on above: Performed By: #### C BC #### [facility] [address] [place] [address] Dr. Homero Damon Lymphocytes/100 WBC (Bld) 32.9 % Normal 20.5-60.0 [facility] Comment on above: Performed By: #### C BC #### [facility] [address] [place] [address] Dr. Homero Damon MANUAL DIFF REQ NO Normal [facility] Comment on above: Performed By: #### C BC #### [facility] [address] [place] [address] Dr. Homero Damon MCH (RBC) [Entitic mass] 23.0 pg Critically low 26.7-34.0 [facility] Comment on above: Performed By: #### C BC #### [facility] [address] [place] [address] Dr. Homero Damon MCHC (RBC) [Mass/Vol] 29.7 g/dL Critically low 29.9-35.2 [facility] Comment on above: Performed By: #### C BC #### [facility] [address] [place] [address] Dr. Homero Damon MCV (RBC) [Entitic vol] 77.7 fL Critically low 81.0-99.0 [facility] Comment on above: Performed By: #### C BC #### [facility] [address] [place] [address] Dr. Homero Damon MONO # 0.8 103/ul Normal 0.3-0.8 [facility] Comment on above: Performed By: #### C BC #### [facility] [address] [place] [address] Dr. Homero Damon Monocytes/100 WBC (Bld) 7.1 % Normal 1.7-12.0 [facility] Comment on above: Performed By: #### C BC #### [facility] [address] [place] [address] Dr. Homero Damon NEUT # 6.1 103/ul Normal 1.4-6.5 [facility] Comment on above: Performed By: #### C BC #### [facility] [address] [place] [address] Dr. Homero Damon Neutrophils/100 WBC (Bld) 57.9 % Normal 43.0-75.0 [facility] Comment on above: Performed By: #### C BC #### [facility] [address] [place] [address] Dr. Homero Damon Platelet mean volume (Bld) [Entitic vol] 11.0 fL Normal 9.5-13.5 [facility] Comment on above: Performed By: #### C BC #### [facility] [address] [place] [address] Dr. Homero Damon PLT 253 103/ul Normal 150-450 [facility] Comment on above: Performed By: #### C BC #### [facility] [address] [place] [address] Dr. Homero Damon RBC 4.21 106/ul Normal 4.20-5.40 [facility] Comment on above: Performed By: #### C BC #### [facility] [address] [place] [address] Dr. Homero Damon WBC 10.6 103/ul Normal 4.0-11.0 [facility] Comment on above: Performed By: #### C BC #### [facility] [address] [place] [address] Dr. Homero Damon CBC AUTO DIFFon 03-13-2022 BASO # 0.0 103/ul Normal 0.0-0.1 [facility] Comment on above: Performed By: #### T HCCONF #### [facility] [address] [place] [address] Dr. Homero Damon Basophils/100 WBC (Bld) 0.3 % Normal 0.2-2.0 [facility] Comment on above: Performed By: #### T HCCONF #### [facility] [address] [place] [address] Dr. Homero Damon EO # 0.0 103/ul Normal 0.0-0.7 [facility] Comment on above: Performed By: #### T HCCONF #### [facility] [address] [place] [address] Dr. Homero Damon Eosinophils/100 WBC (Bld) 0.2 % Critically low 0.9-7.0 [facility] Comment on above: Performed By: #### T HCCONF #### [facility] [address] [place] [address] Dr. Homero Damon Erythrocyte distribution width (RBC) [Ratio] 16.0 % Critically high 11.0-15.0 [facility] Comment on above: Performed By: #### T HCCONF #### [facility] [address] [place] [address] Dr. Homero Damon Hematocrit (Bld) [Volume fraction] 35.3 % Critically low 36.0-48.0 [facility] Comment on above: Performed By: #### T HCCONF #### [facility] [address] [place] [address] Dr. Homero Damon Hemoglobin (Bld) [Mass/Vol] 11.0 g/dL Critically low 12.0-16.0 [facility] Comment on above: Performed By: #### T HCCONF #### [facility] [address] [place] [address] Dr. Homero Damon IG # 0.04 10e3/ul Critically high 0.00-0.03 [facility] Comment on above: Performed By: #### T HCCONF #### [facility] [address] [place] [address] Dr. Homero Damon IG % 0.4 % Normal 0.0-0.5 [facility] Comment on above: Performed By: #### T HCCONF #### [facility] [address] [place] [address] [address] Homero Damon LYMPH # 2.5 103/ul Normal 1.2-3.8 [facility] Comment on above: Performed By: #### T HCCONF #### [facility] [address] [place] [address] Dr. Homero Damon Lymphocytes/100 WBC (Bld) 26.4 % Normal 20.5-60.0 [facility] Comment on above: Performed By: #### T HCCONF #### [facility] [address] [place] [address] Dr. Homero Damon MANUAL DIFF REQ NO Normal [facility] Comment on above: Performed By: #### T HCCONF #### [facility] [address] [place] [address] Dr. Homero Damon MCH (RBC) [Entitic mass] 23.5 pg Critically low 26.7-34.0 [facility] Comment on above: Performed By: #### T HCCONF #### [facility] [address] [place] [address] Dr. Homero Damon MCHC (RBC) [Mass/Vol] 31.2 g/dL Normal 29.9-35.2 [facility] Comment on above: Performed By: #### T HCCONF #### [facility] [address] [place] [address] Dr. Homero Damon MCV (RBC) [Entitic vol] 75.4 fL Critically low 81.0-99.0 [facility] Comment on above: Performed By: #### T HCCONF #### [facility] [address] [place] [address] Dr. Homero Damon MONO # 0.6 103/ul Normal 0.3-0.8 [facility] Comment on above: Performed By: #### T HCCONF #### [facility] [address] [place] [address] Dr. Homero Damon Monocytes/100 WBC (Bld) 6.4 % Normal 1.7-12.0 [facility] Comment on above: Performed By: #### T HCCONF #### [facility] [address] [place] [address] Dr. Homero Damon NEUT # 6.4 103/ul Normal 1.4-6.5 [facility] Comment on above: Performed By: #### T HCCONF #### [facility] [address] [place] [address] Dr. Homero Damon Neutrophils/100 WBC (Bld) 66.3 % Normal 43.0-75.0 [facility] Comment on above: Performed By: #### T HCCONF #### [facility] [address] [place] [address] Dr. Homero Damon Platelet mean volume (Bld) [Entitic vol] 11.0 fL Normal 9.5-13.5 [facility] Comment on above: Performed By: #### T HCCONF #### [facility] [address] [place] [address] Dr. Homero Damon PLT 312 103/ul Normal 150-450 [facility] Comment on above: Performed By: #### T HCCONF #### [facility] [address] [place] [address] Dr. Homero Damon RBC 4.68 106/ul Normal 4.20-5.40 [facility] Comment on above: Performed By: #### T HCCONF #### [facility] [address] [place] [address] Dr. Homero Damon WBC 9.6 103/ul Normal 4.0-11.0 [facility] Comment on above: Performed By: #### T HCCONF #### [facility] [address] [place] [address] Dr. Homero Damon Covid-19 PCR (CVDTBH)on 02-13 SARS-CoV-2 (COVID-19) RNA LORRAINE+probe Ql (Unsp spec) Not detected Normal NOT DETECTED [facility] [...] for this test is supported by the Vacuum Technician of Health and Human Service's declaration that [...] used). Performed By: #### C VDTBH #### [facility] [address] [place] [address] Dr. Homero Damon DRUG SCREEN RAPID (URINE)on 03-13-2022 AMP Negative Normal NEGATIVE [facility] Comment on above: Performed By: #### D RUGRPD #### [facility] [address] [place] [address] Dr. Homero Damon BAR Negative Normal NEGATIVE [facility] Comment on above: Performed By: #### D RUGRPD #### [facility] [address] [place] [address] Dr. Homero Damon BUP Negative Normal NEGATIVE [facility] Comment on above: Performed By: #### D RUGRPD #### [facility] [address] [place] [address] Dr. Homero Damon BZO Negative Normal NEGATIVE [facility] Comment on above: Performed By: #### D RUGRPD #### [facility] [address] [place] [address] Dr. Homero Damon MADHURI Negative Normal NEGATIVE [facility] Comment on above: Performed By: #### D RUGRPD #### [facility] [address] [place] [address] Dr. Homero Damon CUT-OFFS SEE BELOW Normal [facility] Comment on above: Result Comment: AMP [...] ng/mL Performed By: #### D RUGRPD #### [facility] [address] [place] [address] Dr. Homero Damon DRUG CUT HEADER DRUG CLASS TEST SYSTEM CUT-OFF CONCENTRATIONS ARE FOLLOWS: Normal [facility] Comment on above: Performed By: #### D RUGRPD #### [facility] [address] [place] [address] Dr. Homero Damon mAMP Negative Normal NEGATIVE [facility] Comment on above: Performed By: #### D RUGRPD #### [facility] [address] [place] [address] Dr. Homero Damon MTD Negative Normal NEGATIVE [facility] Comment on above: Performed By: #### D RUGRPD #### [facility] [address] [place] [address] Dr. Homero Damon OPI Negative Normal NEGATIVE [facility] Comment on above: Performed By: #### D RUGRPD #### [facility] [address] [place] [address] Dr. Homero Damon OXY Negative Normal NEGATIVE [facility] Comment on above: Performed By: #### D RUGRPD #### [facility] [address] [place] [address] Dr. Homero Damon PCP Negative Normal NEGATIVE [facility] Comment on above: Performed By: #### D RUGRPD #### [facility] [address] [place] [address] Dr. Homero Damon PPX Negative Normal NEGATIVE [facility] Comment on above: Performed By: #### D RUGRPD #### [facility] [address] [place] [address] Dr. Homero Damon TCA Negative Normal NEGATIVE [facility] Comment on above: Performed By: #### D RUGRPD #### [facility] [address] [place] [address] Dr. Homero Damon THC Positive Abnormal NEGATIVE [facility] Comment on above: Performed By: #### D RUGRPD #### [facility] [address] [place] [address] Dr. Homero Damon TYPE AND SCREENon 03-13-2022 TYPE AND SCREEN Negative Normal [facility] Comment on above: Performed By: #### T HCCONF #### [facility] [address] [place] [address] Dr. Homero Damon UA (CLEAN/CATCH) STORE CLERK CHECKER/MICRO I F IND.on 03-10-2022 Bilirubin Ql (U) Negative Normal NEGATIVE [facility] Comment on above: Performed By: #### U ACSIND #### [facility] [address] [place] [address] Dr. Homero Damon Clarity (U) CLEAR Normal CLEAR [facility] Comment on above: Performed By: #### U ACSIND #### [facility] [address] [place] [address] Dr. Homero Damon Color (U) YELLOW Normal YELLOW [facility] Comment on above: Performed By: #### U ACSIND #### [facility] [address] [place] [address] Dr. Homero Damon Glucose Ql (U) Negative Normal NEGATIVE [facility] Comment on above: Performed By: #### U ACSIND #### [facility] [address] [place] [address] Dr. Homero Damon Hemoglobin Ql (U) Negative Normal NEGATIVE [facility] Comment on above: Performed By: #### U ACSIND #### [facility] [address] [address] [address] Homero Damon Ketones Ql (U) Negative Normal NEGATIVE [facility] Comment on above: Performed By: #### U ACSIND #### [facility] [address] [place] [address] Dr. Homero Damon LEUKOCYTES Negative Normal NEGATIVE [facility] Comment on above: Performed By: #### U ACSIND #### [facility] [address] [address] [address] Homero Damon Nitrite Ql (U) Negative Normal NEGATIVE [facility] Comment on above: Performed By: #### U ACSIND #### [facility] [address] [place] [address] Dr. Homero Damon pH (U) 6.0 [pH] Normal 5-9 [facility] Comment on above: Performed By: #### U ACSIND #### [facility] [address] [place] [address] Dr. Homero Damon SPEC GRAVITY 1.025 Normal 1.005-<=1.025 [facility] Comment on above: Performed By: #### U ACSIND #### [facility] [facility] [address] [place] [address] Dr. Homero Damon UA PROTEIN Negative Normal NEGATIVE/ TRACE [facility] Comment on above: Performed By: #### U ACSIND #### [facility] [address] [place] [address] Dr. Homero Damon UR MICRO IND NOT INDICATED Normal [facility] Comment on above: Performed By: #### U ACSIND #### [facility] [address] [place] [address] Dr. Homero Damon Urobilinogen Qn (U) 1.0 {Saad'U}/dL Normal 0.2 - 1. 0 [facility] Comment on above: Performed By: #### U ACSIND #### [facility] [address] [place] [address] Dr. Homero Damon GROUP B STREP CULTUREon 02-11 S. agalactiae Ag Ql (Unsp spec) Culture Observations: Called Group B Strep to Millie Armando, Time Study Technologist on 02/25 @ 0919 Isolate 1 Streptococcus agalactiae Moderate growth of ORGANISM 1 Streptococcus agalactiae ANTIBIOTIC M.I.C RX STATUS Benzylpenicillin <=0.06 S F Ampicillin <=0.25 S F Cefotaxime <=0.12 S F Ceftriaxone <=0.12 S F Levofloxacin 0.5 S F Erythromycin >=8 R F Clindamycin >=1 R F Linezolid <=2 S F Vancomycin 0.5 S F Tetracycline >=16 R F Normal [facility] Comment on above: Performed By: #### T HCCONF #### [facility] [address] [place] [address] Dr. Homero Damon CULTURE URINEon 02-23-2022 CULTURE [...] Trimethoprim/Sulfame thoxazole <=20 S F Normal [facility] Comment on above: Performed By: #### U RCX #### [facility] [address] [place] [address] Dr. Homero Damon UA RANDOM W/MICROSCOPICon BACTERIA LARGE Abnormal NONE SEEN [facility] Comment on above: Performed By: #### U AMIC #### [facility] [address] [place] [address] Dr. Homero Damon Bilirubin Ql (U) Negative Normal NEGATIVE [facility] Comment on above: Performed By: #### U AMIC #### [facility] [address] [place] [address] Dr. Homero Damon CAST NONE SEEN Normal NONE SEEN [facility] Comment on above: Performed By: #### U AMIC #### [facility] [address] [address] [address] Homero Damon Clarity (U) CLEAR Normal CLEAR [facility] Comment on above: Performed By: #### U AMIC #### [facility] [address] [address] [address] Homero Damon Color (U) LT. YELLOW Normal YELLOW [facility] Comment on above: Performed By: #### U AMIC #### [facility] [address] [address] [address] Homero Damon Crystals LM Nom (Urine sed) NONE SEEN Normal NONE SEEN [facility] Comment on above: Performed By: #### U AMIC #### [facility] [address] [place] [address] Dr. Homero Damon Epithelial cells LM Ql (Urine sed) FEW Abnormal NONE SEEN /RARE [facility] Comment on above: Performed By: #### U AMIC #### [facility] [address] [place] [address] Dr. Homero Damon Glucose Ql (U) Negative Normal NEGATIVE [facility] Comment on above: Performed By: #### U AMIC #### [facility] [address] [address] [address] Homero Damon Hemoglobin Ql (U) Negative Normal NEGATIVE The [facility] Comment on above: Performed By: #### U AMIC #### [facility] [address] [address] [address] Homero Damon Ketones Ql (U) TRACE Abnormal NEGATIVE [facility] Comment on above: Performed By: #### U AMIC #### [facility] [address] [address] [address] Homero Damon LEUKOCYTES TRACE Abnormal NEGATIVE [facility] Comment on above: Performed By: #### U AMIC #### [facility] [address] [address] [address] Homero Damon MUCOUS NONE SEEN Normal NONE SEEN [facility] Comment on above: Performed By: #### U AMIC #### [facility] [address] [place] [address] Dr. Homero Damon Nitrite Ql (U) Negative Normal NEGATIVE [facility] Comment on above: Performed By: #### U AMIC #### [facility] [address] [place] [address] Dr. Homero Damon pH (U) 6.0 [pH] Normal 5-9 [facility] Comment on above: Performed By: #### U AMIC #### [facility] [address] [place] [address] Dr. Homero Damon RBC NONE SEEN Abnormal 0-2 [facility] Comment on above: Performed By: #### U AMIC #### [facility] [address] [place] [address] Dr. Homero Damon SPEC GRAVITY 1.025 Normal 1.005-<=1.025 [facility] Comment on above: Performed By: #### U AMIC #### [facility] [address] [place] [address] Dr. Homero Damon UA PROTEIN Negative Normal NEGATIVE/ TRACE [facility] Comment on above: Performed By: #### U AMIC #### [facility] [address] [place] [address] Dr. Homero Damon Urobilinogen Qn (U) 0.2 {Saad'U}/dL Normal 0.2 - 1. 0 [facility] Comment on above: Performed By: #### U AMIC #### [facility] [address] [place] [address] Dr. Homero Damon WBC 5-10 Abnormal NONE SEEN [facility] Comment on above: Performed By: #### U AMIC #### [facility] [address] [place] [address] Dr. Homero Damon GLUCOSE - 1HRon 12-12-2021 Glucose [Mass/Vol] 128 mg/dL Critically high 74-106 T [facility] Comment on above: Performed By: #### G LU1HR #### [facility] [address] [place] [address] Dr. Homero Damon HEMOGRAM AND PLATELon 06-01- 2022 Hematocrit (Bld) [Volume fraction] 38.8 % Normal 36.0-48.0 [facility] Comment on above: Performed By: #### H H #### [facility] [address] [place] [address] Dr. Homero Damon Hemoglobin (Bld) [Mass/Vol] 12.3 g/dL Normal 12.0-16.0 [facility] Comment on above: Performed By: #### H H #### [facility] [address] [place] [address] Dr. Homero Damon MCH (RBC) [Entitic mass] 25.8 pg Critically low 26.7-34.0 [facility] Comment on above: Performed By: #### H H #### [facility] [address] [place] [address] Dr. Homero Damon MCHC (RBC) [Mass/Vol] 31.7 g/dL Normal 29.9-35.2 [facility] Comment on above: Performed By: #### H H #### [facility] [address] [place] [address] Dr. Homero Damon MCV (RBC) [Entitic vol] 81.3 fL Normal 81.0-99.0 [facility] Comment on above: Performed By: #### H H #### [facility] [address] [place] [address] Dr. Homero Damon PLT 304 103/ul Normal 150-450 [facility] Comment on above: Performed By: #### H H #### [facility] [address] [place] [address] Dr. Homero Damon RBC 4.77 106/ul Normal 4.20-5.40 [facility] Comment on above: Performed By: #### H H #### [facility] [address] [place] [address] Dr. Homero Damon WBC 9.9 103/ul Normal 4.0-11.0 [facility] Comment on above: Performed By: #### H H #### [facility] [address] [place] [address] Dr. Homero Damon CULTURE URINEon 12-06-2021 CULTURE [...] F Trimethoprim/Sulfame thoxazole <=20 S F Normal [facility] Comment on above: Performed By: #### [facility] #### [facility] [address] [place] [address] Dr. Homero Damon Vital Signs Date Time Vital Sign Value Performing Clinician Faci lity 09-03-2023 10:39-0500 Body height 160 cm Marielena Hernandez MD Work Phone: [facility] 09-03-2023 10:39-0500 Body mass index (BMI) [Ratio] 41.45 kg/m2 Marielena Hernandez MD Work Phone: [facility] 09-03-2023 10:39-0500 Body weight 106.14 kg Marielena Hernandez MD Work Phone: [facility] 09-03-2023 10:39-0500 Diastolic blood pressure 88 mm[Hg] Marielena Hernandez MD Work Phone: [facility] 09-03-2023 10:39-0500 Heart rate 98 /min Marielena Hernandez MD Work Phone: [facility] 09-03-2023 10:39-0500 Systolic blood pressure 123 mm[Hg] Marielena Hernandez MD Work Phone: [facility] 08-21-2023 10:31-0500 Body mass index (BMI) [Ratio] 43.48 kg/m2 Trisha CASTELLANOS Work Phone: [facility] 08-21-2023 10:31-0500 Body weight 104.38 kg Trisha CASTELLANOS Work Phone: [facility] 08-21-2023 10:31-0500 Diastolic blood pressure 60 mm[Hg] Trisha CASTELLANOS Work Phone: [facility] 08-21-2023 10:31-0500 Systolic blood pressure 118 mm[Hg] Trisha CASTELLANOS Work Phone: [facility] Healthcare Encounters Encounter Date Encounter [...] 09-03-2023 End: 09-03-2023 ambulatory LEA R DANO [facility] Start: 09-03-2023 End: 09-03-2023 Office outpatient visit 10 minutes Marielena Hernandez MD Work Phone: [facility] [place] Comment on above: 22 weeks gestation o f (Primary Dx); Severe obesity with alveolar hypoventilation affecting , antepartum ([facility]) Start: 08-21-2023 End: 08-21-2023 Office outpatient visit 15 minutes Trisha CASTELLANOS Work Phone: [facility] Comment on above: Second trimester pre gnancy; Diabetes mellitus screening Start: 08-21-2023 End: 08-21-2023 ambulatory TRISHA SLATER Not Available Start: 08-20-2023 Chart abstracting Marielena Hernandez MD Work Phone: [facility] Start: 07-23-2023 End: 07-23-2023 ambulatory [...] Td Vaccines (8 - Td or Tdap) [facility] Start: 09-17-2023 End: 09-17-2023 Patient encounter procedure 09/17/2023 10:50 AM EST Routine [facility] [address] [place] [address] Lea Cole, DO [address] [place] [address] [facility] Start: 09-03-2023 End: 09-03-2023 Patient encounter procedure [facility] Start: 08-21-2023 End: 08-21-2024 CBC panel - Blood by Automated count CBC Lab Routine Diabetes mellitus screening Expected: 08/21/2023 (Approximate), Expires: 08/21/2024 [facility] Work Phone: Comment on above: Expected: 08/21/2023 (Approximate), Expires: 08/21/2024 Start: 08-21-2023 End: 08-21-2024 Measurement of glucose 1 hour after glucose challenge for glucose tolerance test Glucose tolerance, 1 hour Lab Routine Diabetes mellitus screening Expected: 08/21/2023 (Approximate), Expires: 08/21/2024 [facility] Comment on above: Expected: 08/21/2023 (Approximate), Expires: 08/21/2024 Start: 03-14-2023 Influenza vaccination Influenza Vacc ine [facility] Start: 2021 Screening for malign ant neoplasm of cervix Pap Smear [facility] Start: 2019 DTaP,Tdap and Td Vaccines (1 - Tdap) DTaP,Tdap and Td Vaccines (1 - Tdap) [facility] Start: 2018 Adult BMI Follow Up Plan Adult BMI Follow Up Plan [facility] Start: 2018 Adult BMI Screening Adult BMI Screen ing [facility] Start: 2012 Depression Screening Depression Scre ening [facility] Start: 2012 Tobacco Screening Tobacco Screening [facility] Immunizations Immunization Date Immunization Notes Care Provider Dioni noe 06-03-2013 influenza virus vaccine, unspecified formulation Marielena Hernandez MD Work Phone: [facility] Payers Date Payer Category Payer Medicaid [id number] 2022 Medicaid [id number] 2022 Medicaid [id number] 2000 Unknown [id number] 2.16.84 0.1.105450.3.579.2.593 2000 Unknown [id number] 2.16.84 0.1.216841.3.579.2.593 2000 Unknown [id number] 2.16.84 0.1.101876.3.579.2.593 2000 Unknown [id number] 2.16.84 0.1.436186.3.579.2.593 2000 Unknown [id number] 2.16.84 0.1.254794.3.579.2.593 2000 Unknown [id number] 2.16.84 0.1.677225.3.579.2.593 2000 Unknown [id number] 2.16.84 0.1.618984.3.579.2.593 2000 Unknown [id number] 2.16.8 40.1.375733.3.579.2.1286 2000 Unknown [id number] 2.16.8 40.1.526574.3.579.2.1286 2000 Unknown [id number] 2.16.84 0.1.054424.3.579.2.1259 2000 Unknown [id number] 2.16.84 0.1.578701.3.579.2.1259 2000 Unknown [id number] 2.16.84 0.1.007084.3.579.2.9 2000 Unknown [id number] 2.16.84 0.1.727776.3.579.2.1259 2000 Unknown [id number] 2.16.84 0.1.727052.3.579.2.9 2000 Unknown [id number] 2.16.84 0.1.747543.3.579.2.1259 2000 Unknown [id number] 2.16.84 0.1.821859.3.579.2.9 2000 Unknown [id number] 2.16.84 0.1.660013.3.579.2.9 2000 Unknown [id number] 2.16.84 0.1.208888.3.579.2.9 2000 Unknown [id number] 2.16.84 0.1.645342.3.579.2.1259 2000 Unknown [id number] 2.16.840 .1.075065.3.579.2.1259 1959 Unknown [id number] Social History Date Type Detail Facility Start: 04-08-2017 End: 09-03-2023 Tobacco smoking status NHIS Never smoked tobacco [facility] Start: 04-08-2017 End: 09-03-2023 Tobacco use and exposure Smokeless tobacco non-user [facility] Start: 08-20-2023 End: 09-03-2023 Alcohol intake Current non-drinker of alcohol (finding) [facility] Start: 08-24-2020 End: 08-20-2023 History of Social function [facility] Start: 08-24-2020 End: 08-20-2023 Tobacco use panel [facility] Unknown [facility] Start: 04-14-2023 [facility] Start: 2000 Sex Assigned At Not on file P [facility] Start: 06-13-2023 Gender identity Identifies as [...] Yes Have you been seen here at [facility] in a previous ? No Recent ER visits or hospitalizations? No Bring blood sugar log or meter with you today? (Please bring them with you for every visit at [facility]) N/A Traveled outside the country in [...] patient is in complete care of her oven technician. Patient does have ultrasound and office visit [...] patient/family/caregiver Referring and communicating with other health family member caretaker (not separately reported) Documenting clinical information in the electronic or other health record Marielena Hernandez MD [facility] [id number] [facility] 1[address] [place] [address] [facility], the CDC, and other organizations representing maternal and public health professionals recommend that , , and lactating people and those considering receive the COVID-19 vaccination. Vaccination is the best method to reduce maternal and complications of SARS-CoV-2 infection. This document was created with [employer] technology. Though I make every effort to review the dictation as it is transcribed, on occasion the spoken word can be misinterpreted by the technology leading to inappropriate words, phrases, or sentences. This note is addressed to the requesting provider as a consultation for clinical guidance. Specific medical abbreviations are occasionally used and those are generally approved by the [place]?Board of?Obstetrics and?Gynecology?as well as?Terrance grimm abbreviations. The above plan of care was based solely on the diagnoses for which a consultation was requested. ?More frequent testing may be indicated based on her other medical/obstetrical conditions. The management of other or medical conditions is beyond the scope of requested consultation and will continue to be followed by the primary oven technician or primary care provider. Note to patient: [...] of the practitioner. documented in this encounter [facility] History of Present illness Narrative 08-21-2023 EMANUEL [...] for diabetes mellitus documented in this encounter [facility] Healthcare Evaluation note Note Date & Type Note Facility Evaluation note Diagnosis 22 weeks gestation of - Primary Severe obesity with alveolar hypoventilation affecting , antepartum ([facility]) documented in this encounter [facility] [...] and content) DATE CREATED AUTHOR 11/20/2022 [facility] DATE CREATED AUTHOR AUTHOR'S ORGANIZ ATION 09/10/2023 [facility] DATE CREATED AUTHOR AUTHOR'S ORGANIZ ATION 12/19/2023 [facility] Reason for [...] BE BASED ON THE PRIMARY CLINICAL RECORDS. [facility] [employer] provides no warranty or guarantee of the accuracy or completeness of information in this document.
--- NOTE | 2023-12-24 11:10 | US_ITS ---
[address] [address] Patient Name: JULIANA MICHELE MRN: [id number] date: 2000 Sex: F Assigned Patient Location: [facility] Current Patient Location: [facility] Accession/Order Number: [id number] Exam Date: 12/24/2023 11:11 Report Date: 12/24/2023 11:38 At the request of: LEA MATSON Procedure: US OB BPP w non-stress EXAMINATION: US OB BPP w non-stress HISTORY: Excessive growth O36.63X0 COMPARISON: No relevant comparison available. TECHNIQUE: Ultrasound biophysical profile was performed in the radiology department. non-reactive stress testing was performed by nursing staff in the birthing center. FINDINGS: BREATHING MOVEMENTS: 2.0 GROSS BODY MOVEMENTS: 2.0 TONE: 2.0 QUALITATIVE AMNIOTIC FLUID VOLUME: 2.0 PRESENTATION: CEPHALIC HEART RATE: 163.6 bpm H.B./min AMNIOTIC FLUID VOLUME: 11.5 cm cm GESTATIONAL AGE: 38 weeks 2 days CONCLUSION: Total biophysical profile score: 8.0 Electronically authenticated by: BETTYE MICHELLE Date: 12/24/2023 11:38
[2023-12-24 11:42] VITALS: BP 133/87; PULSE 117
== END 2023-12-24 12:31 | disposition home or self-care (01) ==
LOC: US 06:59 → FBC 11:05
PROVIDERS: PCP Nurse Practitioner Primary Care; Visit Provider Obstetrics & Gynecology
DX: Z13.1 Encounter for screening for diabetes mellitus (principal); Z3A.38 38 weeks gestation of pregnancy
CPT/HCPCS: 76818

== ENCOUNTER 2023-12-27 07:56 | Outpatient (OUT) | payer MEDICAID, SELFPAY ==
--- OUTSIDE RECORDS SUMMARY | 2023-12-27 07:58 | XMS_ITS | CCD ---
Author Organization [facility] CliniSyms Care Team Providers Care American Sign Language Teacher Name Role Phone PAULO ., DR [...] R Referring Unavailable MARIELENA HERNANDEZ Attending Unavailable DANO, LEA Attending Unavailable BRYON, TRISHA Attending Unavailable DANO, LEA Attending Unavailable BRYON, TRISHA Attending Unavailable DANO, LEA Attending Unavailable BRYON, TRISHA Attending Unavailable DANO, LEA Attending Unavailable BRYON, TRISHA Attending Unavailable DANO, LEA Attending Unavailable DANO, LEA Attending Unavailable BRYON, [...] UA Negative Negative - 4(70) +++ mg/dL [facility] Blood, UA Negative Negative - 50 Francis/mcL [facility] Clarity, UA Clear [facility] Color, UA Yellow [facility] Glucose, UA Negative Negative - 2000(110) ++++ mg/dL [facility] Interpretation and review of laboratory results Abnormal [facility] Ketones, UA Negative Negative - 160(16) ++++ mg/dL [facility] Leukocytes, UA Negative Negative - 500+++ Shravan/mcL [facility] Nitrite, UA Negative Negative - Positive [facility] pH, UA 6.0 5 - 9 [facility] Protein, UA Trace Negative - 1999(20) ++++ mg/dL [facility] Spec Grav, UA 1.030 1 - 1.03 [facility] Urobilinogen, UA 0.2 0.2 - 12 mg/dL [facility] AFP Single Marker Scrn, Mate rnal, Serumon 07-26-2023 Ms Alpha-Fetoprotein Negative [facility] Free Cell DNAon 2022 Free Cell Dna LOW RISK [facility] CBC without diffon Hematocrit (Bld) [Volume fraction] 38.7 % [facility] Hemoglobin (Bld) [Mass/Vol] 12.0 g/dL [facility] Platelets (Bld) [#/Vol] 365 10*3/uL [facility] HIV 1&2 AB/AG Screen (P24 AG )on 06-20-2023 HIV 1&2 AB/AG Non-Reactive [facility] Hepatitis B surface antigeno n 06-20-2023 Hepatitis B Surface Antigen Negative [facility] Hepatitis C(HCV) Ab w/ Refle x to PCRon 06-20-2023 HCV Ab Ql (S) Non-Reactive [facility] No Panel InformationOrdered By: Nicky Miles on 06-20-2023 [facility] Rubella IGG immune statuson 06-20-2023 Rubella immune IgG 2.23 IMMUNE [facility] Syphilis Total(Unknown Syphi lis Status)Ordered By: Nicky Miles on 06-20-2023 Syphilis Non-Reactive [facility] TSHon 06-20-2023 Thyroid Stimulating (3Rd Generation) Hormone/ Tsh 0.708 [facility] PAP ACOG PANEL 2: 21 to 29on 11-20-2022 . . Normal [facility] Comment on above: Performed By: #### [id number] #### [facility] [address] [address] [address] Homero Damon Age Gdln ACOG Testing 21- Normal [facility] Comment on above: Performed By: #### [id number] #### [facility] [address] [place] [address] Dr. Homero Damon DIAGNOSIS: Comment Normal [facility] Comment on above: Result Comment: NEGA TIVE FOR INTRAEPITHELIAL LESION OR MALIGNANCY. Performed By: #### [id number] #### [facility] [address] [place] [address] Dr. Homero Damon Methodology: Comment Normal [facility] Comment on above: Result Comment: This liquid based ThinPrep(R) pap test was screened with the use of an image guided system. Performed By: #### [id number] #### [facility] [address] [place] [address] Dr. Homero Damon Note: Comment Normal [facility] Comment on above: Result Comment: The Pap smear is a screening test designed to aid in the detection of premalignant and malignant conditions of the uterine cervix. It is not a diagnostic procedure and should not be used as the sole means of detecting cervical cancer. Both false-positive and false-negative reports do occur. . Performed By: #### [id number] #### [facility] [address] [place] [address] Dr. Homero Damon Performed by: Comment Normal [facility] Comment on above: Result Comment: Haris Alexis, Tourist Guide (ASCP) Performed By: #### [id number] #### [facility] [address] [place] [address] Dr. Homero Damon Reflex Criteria: Comment Normal [facility] Comment on above: Result Comment: The HPV DNA reflex criteria were not met with this specimen result therefore, no HPV testing was performed. . Performed By: #### [id number] #### [facility] [address] [place] [address] Dr. Homero Damon Specimen adequacy: Comment Normal [facility] Comment on above: Result Comment: Sati sfactory for evaluation. Endocervical and/or squamous metaplastic cells (endocervical component) are present. Performed By: #### [id number] #### [facility] [address] [place] [address] Dr. Homero Damon CANNABINOID (THC) CONFIRMATI ON, URINEon 03-19-2022 Cannabinoid Positive Abnormal [facility] Comment on above: Performed By: #### T HCCONF #### [facility] [address] [place] [address] Dr. Homero Damon Carboxy THC GC/MS Conf 47 ng/mL Normal Cutoff=10 Th e [facility] Comment on above: Performed By: #### T HCCONF #### [facility] [address] [place] [address] Dr. Homero Damon CBC AUTO DIFFon 03-15-2022 BASO # 0.0 103/ul Normal 0.0-0.1 [facility] Comment on above: Performed By: #### C BC #### [facility] [address] [place] [address] Dr. Homero Damon Basophils/100 WBC (Bld) 0.2 % Normal 0.2-2.0 [facility] Comment on above: Performed By: #### C BC #### [facility] [address] [place] [address] Dr. Homero Damon EO # 0.2 103/ul Normal 0.0-0.7 [facility] Comment on above: Performed By: #### C BC #### [facility] [address] [place] [address] Dr. Homero Damon Eosinophils/100 WBC (Bld) 1.5 % Normal 0.9-7.0 [facility] Comment on above: Performed By: #### C BC #### [facility] [address] [place] [address] Dr. Homero Damon Erythrocyte distribution width (RBC) [Ratio] 16.1 % Critically high 11.0-15.0 [facility] Comment on above: Performed By: #### C BC #### [facility] [address] [place] [address] Dr. Homero Damon Hematocrit (Bld) [Volume fraction] 32.7 % Critically low 36.0-48.0 [facility] Comment on above: Performed By: #### C BC #### [facility] [address] [place] [address] Dr. Homero Damon Hemoglobin (Bld) [Mass/Vol] 9.7 g/dL Critically low 12.0-16.0 [facility] Comment on above: Performed By: #### C BC #### [facility] [address] [address] [address] Homero Damon IG # 0.04 10e3/ul Critically high 0.00-0.03 [facility] Comment on above: Performed By: #### C BC #### [facility] [address] [address] [address] Homero Damon IG % 0.4 % Normal 0.0-0.5 [facility] Comment on above: Performed By: #### C BC #### [facility] [address] [place] [address] Dr. Homero Damon LYMPH # 3.5 103/ul Normal 1.2-3.8 [facility] Comment on above: Performed By: #### C BC #### [facility] [address] [place] [address] Dr. Homero Damon Lymphocytes/100 WBC (Bld) 32.9 % Normal 20.5-60.0 [facility] Comment on above: Performed By: #### C BC #### [facility] [address] [place] [address] Dr. Homero Damon MANUAL DIFF REQ NO Normal [facility] Comment on above: Performed By: #### C BC #### [facility] [address] [address] [address] Homero Damon MCH (RBC) [Entitic mass] 23.0 pg Critically low 26.7-34.0 [facility] Comment on above: Performed By: #### C BC #### [facility] [address] [place] [address] Dr. Homero Damon MCHC (RBC) [Mass/Vol] 29.7 g/dL Critically low 29.9-35.2 [facility] Comment on above: Performed By: #### C BC #### [facility] [address] [place] [address] Dr. Homero Damon MCV (RBC) [Entitic vol] 77.7 fL Critically low 81.0-99.0 [facility] Comment on above: Performed By: #### C BC #### [facility] [address] [place] [address] Dr. Homero Damon MONO # 0.8 103/ul Normal 0.3-0.8 [facility] Comment on above: Performed By: #### C BC #### [facility] [address] [place] [address] Dr. Homero Damon Monocytes/100 WBC (Bld) 7.1 % Normal 1.7-12.0 [facility] Comment on above: Performed By: #### C BC #### [facility] [address] [place] [address] Dr. Homero Damon NEUT # 6.1 103/ul Normal 1.4-6.5 [facility] Comment on above: Performed By: #### C BC #### [facility] [address] [place] [address] Dr. Homero Damon Neutrophils/100 WBC (Bld) 57.9 % Normal 43.0-75.0 [facility] Comment on above: Performed By: #### C BC #### [facility] [address] [place] [address] Dr. Homero Damon Platelet mean volume (Bld) [Entitic vol] 11.0 fL Normal 9.5-13.5 [facility] Comment on above: Performed By: #### C BC #### [facility] [address] [place] [address] Dr. Homero Damon PLT 253 103/ul Normal 150-450 [facility] Comment on above: Performed By: #### C BC #### [facility] [address] [place] [address] Dr. Homero Damon RBC 4.21 106/ul Normal 4.20-5.40 [facility] Comment on above: Performed By: #### C BC #### [facility] [address] [place] [address] Dr. Homero Damon WBC 10.6 103/ul Normal 4.0-11.0 [facility] Comment on above: Performed By: #### C BC #### [facility] [address] [place] [address] Dr. Homero Damon CBC AUTO DIFFon 03-13-2022 BASO # 0.0 103/ul Normal 0.0-0.1 [facility] Comment on above: Performed By: #### T HCCONF #### [facility] [address] [place] [address] Dr. Homero Damon Basophils/100 WBC (Bld) 0.3 % Normal 0.2-2.0 [facility] Comment on above: Performed By: #### T HCCONF #### [facility] [address] [place] [address] Dr. Homero Damon EO # 0.0 103/ul Normal 0.0-0.7 [facility] Comment on above: Performed By: #### T HCCONF #### [facility] [address] [place] [address] Dr. Homero Damon Eosinophils/100 WBC (Bld) 0.2 % Critically low 0.9-7.0 [facility] Comment on above: Performed By: #### T HCCONF #### [facility] [address] [place] [address] Dr. Homero Damon Erythrocyte distribution width (RBC) [Ratio] 16.0 % Critically high 11.0-15.0 [facility] Comment on above: Performed By: #### T HCCONF #### [facility] [address] [place] [address] Dr. Homero Damon Hematocrit (Bld) [Volume fraction] 35.3 % Critically low 36.0-48.0 [facility] Comment on above: Performed By: #### T HCCONF #### [facility] [address] [place] [address] Dr. Homero Damon Hemoglobin (Bld) [Mass/Vol] 11.0 g/dL Critically low 12.0-16.0 [facility] Comment on above: Performed By: #### T HCCONF #### [facility] [address] [place] [address] Dr. Homero Damon IG # 0.04 10e3/ul Critically high 0.00-0.03 [facility] Comment on above: Performed By: #### T HCCONF #### [facility] [address] [address] [address] Homero Damon IG % 0.4 % Normal 0.0-0.5 [facility] Comment on above: Performed By: #### T HCCONF #### [facility] [address] [address] [address] Homero Damon LYMPH # 2.5 103/ul Normal 1.2-3.8 [facility] Comment on above: Performed By: #### T HCCONF #### [facility] [address] [place] [address] Dr. Homero Damon Lymphocytes/100 WBC (Bld) 26.4 % Normal 20.5-60.0 [facility] Comment on above: Performed By: #### T HCCONF #### [facility] [address] [address] [address] Homero Damon MANUAL DIFF REQ NO Normal [facility] Comment on above: Performed By: #### T HCCONF #### [facility] [address] [place] [address] Dr. Homero Damon MCH (RBC) [Entitic mass] 23.5 pg Critically low 26.7-34.0 [facility] Comment on above: Performed By: #### T HCCONF #### [facility] [address] [place] [address] Dr. Homero Damon MCHC (RBC) [Mass/Vol] 31.2 g/dL Normal 29.9-35.2 [facility] Comment on above: Performed By: #### T HCCONF #### [facility] [address] [place] [address] Dr. Homero Damon MCV (RBC) [Entitic vol] 75.4 fL Critically low 81.0-99.0 [facility] Comment on above: Performed By: #### T HCCONF #### [facility] [address] [place] [address] Dr. Homero Damon MONO # 0.6 103/ul Normal 0.3-0.8 [facility] Comment on above: Performed By: #### T HCCONF #### [facility] [address] [place] [address] Dr. Homero Damon Monocytes/100 WBC (Bld) 6.4 % Normal 1.7-12.0 [facility] Comment on above: Performed By: #### T HCCONF #### [facility] [address] [place] [address] Dr. Homero Damon NEUT # 6.4 103/ul Normal 1.4-6.5 [facility] Comment on above: Performed By: #### T HCCONF #### [facility] [address] [place] [address] Dr. Homero Damon Neutrophils/100 WBC (Bld) 66.3 % Normal 43.0-75.0 [facility] Comment on above: Performed By: #### T HCCONF #### [facility] [address] [place] [address] Dr. Homero Damon Platelet mean volume (Bld) [Entitic vol] 11.0 fL Normal 9.5-13.5 [facility] Comment on above: Performed By: #### T HCCONF #### [facility] [address] [place] [address] Dr. Homero Damon PLT 312 103/ul Normal 150-450 [facility] Comment on above: Performed By: #### T HCCONF #### [facility] [address] [place] [address] Dr. Homero Damon RBC 4.68 106/ul Normal 4.20-5.40 [facility] Comment on above: Performed By: #### T HCCONF #### [facility] [address] [place] [address] Dr. Homero Damon WBC 9.6 103/ul Normal 4.0-11.0 [facility] Comment on above: Performed By: #### T HCCONF #### [facility] [address] [place] [address] Dr. Homero Damon Covid-19 PCR (CVDTB)on 02-13 SARS-CoV-2 (COVID-19) RNA LORRAINE+probe Ql (Unsp spec) Not detected Normal NOT DETECTED [facility] Comment on above: Result Comment: When [...] for this test is supported by the [employer] of [employer] Service's declaration that [...] used). Performed By: #### C VDTBH #### [facility] [address] [place] [address] Dr. Homero Damon DRUG SCREEN RAPID (URINE)on 03-13-2022 AMP Negative Normal NEGATIVE [facility] Comment on above: Performed By: #### D RUGRPD #### [facility] [address] [place] [address] Dr. Homero Damon BAR Negative Normal NEGATIVE [facility] Comment on above: Performed By: #### D RUGRPD #### [facility] [address] [place] [address] Dr. Homero Damon BUP Negative Normal NEGATIVE [facility] Comment on above: Performed By: #### D RUGRPD #### [facility] [address] [place] [address] Dr. Homero Damon BZO Negative Normal NEGATIVE [facility] Comment on above: Performed By: #### D RUGRPD #### [facility] [address] [place] [address] Dr. Homero Damon MADHURI Negative Normal NEGATIVE [facility] Comment on above: Performed By: #### D RUGRPD #### [facility] [address] [place] [address] Dr. Homero Damon CUT-OFFS SEE BELOW Normal [facility] Comment on above: Result Comment: [...] ng/mL Performed By: #### D RUGRPD #### [facility] [address] [place] [address] Dr. Homero Damon DRUG CUT HEADER DRUG CLASS TEST SYSTEM CUT-OFF CONCENTRATIONS ARE FOLLOWS: Normal [facility] Comment on above: Performed By: #### D RUGRPD #### [facility] [address] [place] [address] Dr. Homero Damon mAMP Negative Normal NEGATIVE [facility] Comment on above: Performed By: #### D RUGRPD #### [facility] [address] [place] [address] Dr. Homero Damon MTD Negative Normal NEGATIVE [facility] Comment on above: Performed By: #### D RUGRPD #### [facility] [address] [place] [address] Dr. Homero Damon OPI Negative Normal NEGATIVE [facility] Comment on above: Performed By: #### D RUGRPD #### [facility] [address] [place] [address] Dr. Homero Damon OXY Negative Normal NEGATIVE [facility] Comment on above: Performed By: #### D RUGRPD #### [facility] [address] [place] [address] Dr. Homero Damon PCP Negative Normal NEGATIVE [facility] Comment on above: Performed By: #### D RUGRPD #### [facility] [address] [place] [address] Dr. Homero Damon PPX Negative Normal NEGATIVE [facility] Comment on above: Performed By: #### D RUGRPD #### [facility] [address] [place] [address] Dr. Homero Damon TCA Negative Normal NEGATIVE [facility] Comment on above: Performed By: #### D RUGRPD #### [facility] [address] [place] [address] Dr. Homero Damon THC Positive Abnormal NEGATIVE [facility] Comment on above: Performed By: #### D RUGRPD #### [facility] [address] [place] [address] Dr. Homero Damon TYPE AND SCREENon 03-13-2022 TYPE AND SCREEN Negative Normal [facility] Comment on above: Performed By: #### T HCCONF #### [facility] [address] [place] [address] Dr. 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 Homero Damon Clarity (U) CLEAR Normal CLEAR [facility] Comment on above: Performed By: #### U ACSIND #### [facility] [address] [place] [address] Dr. Homero Damon Color (U) YELLOW Normal YELLOW [facility] Comment on above: Performed By: #### U ACSIND #### [facility] [address] [place] [address] Dr. Homero Damon Glucose Ql (U) Negative Normal NEGATIVE [facility] Comment on above: Performed By: #### U ACSIND #### [facility] [address] [place] [address] Dr. Homero Damon Hemoglobin Ql (U) Negative Normal NEGATIVE [facility] Comment on above: Performed By: #### U ACSIND #### [facility] [address] [address] [address] Homero Damon Ketones Ql (U) Negative Normal NEGATIVE [facility] Comment on above: Performed By: #### U ACSIND #### [facility] [address] [address] [address] Homero Damon LEUKOCYTES Negative Normal NEGATIVE [facility] Comment on above: Performed By: #### U ACSIND #### [facility] [address] [place] [address] Dr. Homero Damon Nitrite Ql (U) Negative Normal NEGATIVE [facility] Comment on above: Performed By: #### U ACSIND #### [facility] [address] [place] [address] Dr. Homero Damon pH (U) 6.0 [pH] Normal 5-9 [facility] Comment on above: Performed By: #### U ACSIND #### [facility] [address] [place] [address] Dr. Homero Damon SPEC GRAVITY 1.025 Normal 1.005-<=1.025 [facility] Comment on above: Performed By: #### U ACSIND #### [facility] [address] [place] [address] Dr. Homero Damon UA PROTEIN Negative Normal NEGATIVE/ TRACE [facility] Comment on above: Performed By: #### U ACSIND #### [facility] [address] [place] [address] Dr. Homero Damon UR MICRO IND NOT INDICATED Normal [facility] Comment on above: Performed By: #### U ACSIND #### [facility] [address] [place] [address] Dr. Homero Damon Urobilinogen Qn (U) 1.0 {Saad'U}/dL Normal 0.2 - 1. 0 [facility] Comment on above: Performed By: #### U ACSIND #### [facility] [address] [place] [address] Dr. Homero Damon GROUP B STREP CULTUREon 02-11 S. agalactiae Ag Ql (Unsp spec) Culture Observations: Called Group B Strep to Millie Armando, Registered Nurse Obstetrics on 02/25 @ 0959 Isolate 1 Streptococcus agalactiae Moderate growth of ORGANISM 1 Streptococcus agalactiae ANTIBIOTIC M.I.C RX STATUS Benzylpenicillin <=0.06 S F Ampicillin <=0.25 S F Cefotaxime <=0.12 S F Ceftriaxone <=0.12 S F Levofloxacin 0.5 S F Erythromycin >=8 R F Clindamycin >=1 R F Linezolid <=2 S F Vancomycin 0.5 S F Tetracycline >=16 R F Normal [facility] Comment on above: Performed By: #### T HCCONF #### [facility] [address] [place] [address] Dr. Homero Damon CULTURE URINEon 02-23-2022 CULTURE [...] Trimethoprim/Sulfame thoxazole <=20 S F Normal [facility] Comment on above: Performed By: #### U RCX #### [facility] [address] [place] [address] Dr. Homero Damon UA RANDOM W/MICROSCOPICon BACTERIA LARGE Abnormal NONE SEEN [facility] Comment on above: Performed By: #### U AMIC #### [facility] [address] [place] [address] Dr. Homero Damon Bilirubin Ql (U) Negative Normal NEGATIVE [facility] Comment on above: Performed By: #### U AMIC #### [facility] [address] [place] [address] Dr. Homero Damon CAST NONE SEEN Normal NONE SEEN [facility] Comment on above: Performed By: #### U AMIC #### [facility] [address] [address] [address] Homero Damon Clarity (U) CLEAR Normal CLEAR [facility] Comment on above: Performed By: #### U AMIC #### [facility] [address] [address] [address] Homero Damon Color (U) LT. YELLOW Normal YELLOW [facility] Comment on above: Performed By: #### U AMIC #### [facility] [address] [address] [address] Homero Damon Crystals LM Nom (Urine sed) NONE SEEN Normal NONE SEEN [facility] Comment on above: Performed By: #### U AMIC #### [facility] [address] [place] [address] Dr. Homero Damon Epithelial cells LM Ql (Urine sed) FEW Abnormal NONE SEEN /RARE [facility] Comment on above: Performed By: #### U AMIC #### [facility] [address] [address] [address] Homero Damon Glucose Ql (U) Negative Normal NEGATIVE [facility] Comment on above: Performed By: #### U AMIC #### [facility] [address] [place] [address] Dr. Homero Damon Hemoglobin Ql (U) Negative Normal NEGATIVE The [facility] Comment on above: Performed By: #### U AMIC #### [facility] [address] [address] [address] Homero Damon Ketones Ql (U) TRACE Abnormal NEGATIVE [facility] Comment on above: Performed By: #### U AMIC #### [facility] [address] [address] [address] Homero Damon LEUKOCYTES TRACE Abnormal NEGATIVE [facility] Comment on above: Performed By: #### U AMIC #### [facility] [address] [address] [address] Homero Damon MUCOUS NONE SEEN Normal NONE SEEN [facility] Comment on above: Performed By: #### U AMIC #### [facility] [address] [place] [address] Dr. Homero Damon Nitrite Ql (U) Negative Normal NEGATIVE [facility] Comment on above: Performed By: #### U AMIC #### [facility] [address] [place] [address] Dr. Homero Damon pH (U) 6.0 [pH] Normal 5-9 [facility] Comment on above: Performed By: #### U AMIC #### [facility] [address] [place] [address] Dr. Homero Damon RBC NONE SEEN Abnormal 0-2 [facility] Comment on above: Performed By: #### U AMIC #### [facility] [address] [place] [address] Dr. Homero Damon SPEC GRAVITY 1.025 Normal 1.005-<=1.025 [facility] Comment on above: Performed By: #### U AMIC #### [facility] [address] [place] [address] Dr. Homero Damon UA PROTEIN Negative Normal NEGATIVE/ TRACE [facility] Comment on above: Performed By: #### U AMIC #### [facility] [address] [place] [address] Dr. Homero Damon Urobilinogen Qn (U) 0.2 {Saad'U}/dL Normal 0.2 - 1. 0 [facility] Comment on above: Performed By: #### U AMIC #### [facility] [address] [place] [address] Dr. Homero Damon WBC 5-10 Abnormal NONE SEEN [facility] Comment on above: Performed By: #### U AMIC #### [facility] [address] [place] [address] Dr. Homero Damon GLUCOSE - 1HRon 12-12-2021 Glucose [Mass/Vol] 128 mg/dL Critically high 74-106 T [facility] Comment on above: Performed By: #### G LU1HR #### [facility] [address] [place] [address] Dr. Homero Damon HEMOGRAM AND PLATELon 2021 Hematocrit (Bld) [Volume fraction] 38.8 % Normal 36.0-48.0 [facility] Comment on above: Performed By: #### H H #### [facility] [address] [place] [address] Dr. Homero Damon Hemoglobin (Bld) [Mass/Vol] 12.3 g/dL Normal 12.0-16.0 [facility] Comment on above: Performed By: #### H H #### [facility] [address] [place] [address] Dr. Homero Damon MCH (RBC) [Entitic mass] 25.8 pg Critically low 26.7-34.0 [facility] Comment on above: Performed By: #### H H #### [facility] [address] [place] [address] Dr. Homero Damon MCHC (RBC) [Mass/Vol] 31.7 g/dL Normal 29.9-35.2 [facility] Comment on above: Performed By: #### H H #### [facility] [address] [place] [address] Dr. Homero Damon MCV (RBC) [Entitic vol] 81.3 fL Normal 81.0-99.0 [facility] Comment on above: Performed By: #### H H #### [facility] [address] [place] [address] Dr. Homero Damon PLT 304 103/ul Normal 150-450 [facility] Comment on above: Performed By: #### H H #### [facility] [address] [place] [address] Dr. Homero Damon RBC 4.77 106/ul Normal 4.20-5.40 [facility] Comment on above: Performed By: #### H H #### [facility] [address] [place] [address] Dr. Homero Damon WBC 9.9 103/ul Normal 4.0-11.0 [facility] Comment on above: Performed By: #### H H #### [facility] [address] [place] [address] Dr. Homero Damon CULTURE URINEon 12-06-2021 CULTURE [...] F Trimethoprim/Sulfame thoxazole <=20 S F Normal [facility] Comment on above: Performed By: #### [facility] #### [facility] [address] [place] [address] Dr. Homero Damon Vital Signs Date Time Vital Sign Value Performing Clinician Faci lity 09-03-2023 10:39-0500 Body height 160 cm Marielena Hernandez MD Work Phone: [facility] 09-03-2023 10:39-0500 Body mass index (BMI) [Ratio] 41.45 kg/m2 Marielena Hernandez MD Work Phone: [facility] 09-03-2023 10:39-0500 Body weight 106.14 kg Marielena Hernandez MD Work Phone: [facility] 09-03-2023 10:39-0500 Diastolic blood pressure 88 mm[Hg] Marielena Hernandez MD Work Phone: [facility] 09-03-2023 10:39-0500 Heart rate 98 /min Marielena Hernandez MD Work Phone: [facility] 09-03-2023 10:39-0500 Systolic blood pressure 123 mm[Hg] Marielena Hernandez MD Work Phone: [facility] 08-21-2023 10:31-0500 Body mass index (BMI) [Ratio] 43.48 kg/m2 Trisha CASTELLANOS Work Phone: [facility] 08-21-2023 10:31-0500 Body weight 104.38 kg Trisha CASTELLANOS Work Phone: [facility] 08-21-2023 10:31-0500 Diastolic blood pressure 60 mm[Hg] Trisha CASTELLANOS Work Phone: [facility] 08-21-2023 10:31-0500 Systolic blood pressure 118 mm[Hg] Trisha CASTELLANOS Work Phone: [facility] Healthcare Encounters Encounter Date Encounter Type Care Provider Facility Start: 12-25-2023 End: 12-25-2023 ambulatory TRISHA BRYON Not Available Start: 12-18-2023 End: 12-18-2023 ambulatory LEA DANO [...] 09-03-2023 End: 09-03-2023 ambulatory LEA R DANO [facility] Start: 09-03-2023 End: 09-03-2023 Office outpatient visit 10 minutes Marielena Hernandez MD Work Phone: [facility] [place] Comment on above: 22 weeks gestation o f (Primary Dx); Severe obesity with alveolar hypoventilation affecting , antepartum ([facility]) Start: 08-21-2023 End: 08-21-2023 Office outpatient visit 15 minutes Trisha CASTELLANOS Work Phone: [facility] Comment on above: Second trimester pre gnancy; Diabetes mellitus screening Start: 08-21-2023 End: 08-21-2023 ambulatory TRISHA SLATER Not Available Start: 08-20-2023 Chart abstracting Marielena Hernandez MD Work Phone: [facility] Start: 07-23-2023 End: 07-23-2023 ambulatory LEA COLE [...] stick/tabl et rgnt non-auto w/o micrscp Trisha CASETLLANOS Work Phone: Start: 07-26-2023 Alpha-fetoprotein serum Not [...] Td Vaccines (8 - Td or Tdap) [facility] Start: 09-17-2023 End: 09-17-2023 Patient encounter procedure 09/17/2023 10:50 AM EST Routine [facility] [address] [place] [id number] Lea Cole, DO [address] [place] [address] [facility] Start: 09-03-2023 End: 09-03-2023 Patient encounter procedure [facility] Start: 08-21-2023 End: 08-21-2024 CBC panel - Blood by Automated count CBC Lab Routine Diabetes mellitus screening Expected: 08/21/2023 (Approximate), Expires: 08/21/2024 [facility] Work Phone: Comment on above: Expected: 08/21/2023 (Approximate), Expires: 08/21/2024 Start: 08-21-2023 End: 08-21-2024 Measurement of glucose 1 hour after glucose challenge for glucose tolerance test Glucose tolerance, 1 hour Lab Routine Diabetes mellitus screening Expected: 08/21/2023 (Approximate), Expires: 08/21/2024 [facility] Comment on above: Expected: 08/21/2023 (Approximate), Expires: 08/21/2024 Start: 03-14-2023 Influenza vaccination Influenza Vacc ine [facility] Start: 2021 Screening for malign ant neoplasm of cervix Pap Smear [facility] Start: 2019 DTaP,Tdap and Td Vaccines (1 - Tdap) DTaP,Tdap and Td Vaccines (1 - Tdap) [facility] Start: 2018 Adult BMI Follow Up Plan Adult BMI Follow Up Plan [facility] Start: 2018 Adult BMI Screening Adult BMI Screen ing [facility] Start: 2012 Depression Screening Depression Scre ening [facility] Start: 2012 Tobacco Screening Tobacco Screening [facility] Immunizations Immunization Date Immunization Notes Care Provider Fa cility 06-03-2013 influenza virus vaccine, unspecified formulation Marielena Hernandez MD Work Phone: [facility] Payers Date Payer Category Payer Medicaid [id number] 2022 Medicaid [id number] 2022 Medicaid [id number] 2000 Unknown [id number] 2.16.84 [id number] 2000 Unknown [id number] 2.16.84 0.1.326112.3.579.2.593 2000 Unknown [id number] 2.16.84 0.1.223065.3.579.2.593 2000 Unknown [id number] 2.16.84 0.1.239542.3.579.2.593 2000 Unknown [id number] 2.16.84 0.1.463574.3.579.2.593 2000 Unknown [id number] 2.16.84 0.1.066914.3.579.2.593 2000 Unknown [id number] 2.16.84 0.1.247093.3.579.2.593 2000 Unknown [id number] 2.16.8 40.1.635492.3.579.2.1286 2000 Unknown [id number] 2.16.8 40.1.277771.3.579.2.1286 2000 Unknown [id number] 2.16.84 0.1.644525.3.579.2.1259 2000 Unknown [id number] 2.16.84 0.1.521913.3.579.2.9 2000 Unknown [id number] 2.16.84 0.1.862414.3.579.2.1259 2000 Unknown [id number] 2.16.84 0.1.706795.3.579.2.9 2000 Unknown [id number] 2.16.84 0.1.494663.3.579.2.9 2000 Unknown [id number] 2.16.84 0.1.977984.3.579.2.9 2000 Unknown [id number] 2.16.84 0.1.708304.3.579.2.9 2000 Unknown [id number] 2.16.84 0.1.267286.3.579.2.9 2000 Unknown [id number] 2.16.84 0.1.818740.3.579.2.1259 2000 Unknown [id number] 2.16.84 0.1.005238.3.579.2.9 2000 Unknown [id number] 2.16.84 0.1.886719.3.579.2.9 2000 Unknown [id number] 2.16.840 .1.456473.3.579.2.1259 1959 Unknown [id number] Social History Date Type Detail Facility Start: 04-08-2017 End: 09-03-2023 Tobacco smoking status INIS Never smoked tobacco [facility] Start: 04-08-2017 End: 09-03-2023 Tobacco use and exposure Smokeless tobacco non-user [facility] Start: 08-20-2023 End: 09-03-2023 Alcohol intake Current non-drinker of alcohol (finding) [facility] Start: 08-24-2020 End: 08-20-2023 History of Social function [facility] Start: 08-24-2020 End: 02-07-2024 Tobacco use panel [facility] Start: 06-13-2023 Gender identity Identifies as [...] Have you been seen here at [facility] in a previous ? No Recent ER visits or hospitalizations? No Bring blood sugar log or meter with you today? 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 Patient does have ultrasound and office visit [...] patient/family/caregiver Referring and communicating with other health daycare teacher (not separately reported) Documenting clinical information in the electronic or other health record Marielena Hernandez MD [facility] [address] [facility] [address] [place] [address] [facility], the CDC, and other organizations representing maternal and public health professionals recommend that , , and lactating people and those considering receive the COVID-19 vaccination. Vaccination is the best method to reduce maternal and complications of SARS-CoV-2 infection. This document was created with [employer] technology. Though I make every effort to review the dictation as it is transcribed, on occasion the spoken word can be misinterpreted by the technology leading to inappropriate words, phrases, or sentences. This note is addressed to the requesting provider as a consultation for clinical guidance. Specific medical abbreviations are occasionally used and those are generally approved by the [place]?Board of?Obstetrics and?Gynecology?as well as?[place] s abbreviations. The above plan of care was based solely on the diagnoses for which a consultation was requested. ?More frequent testing may be indicated based on her other medical/obstetrical conditions. The management of other or medical conditions is beyond the scope of requested consultation and will continue to be followed by the primary tack puller machine or primary care provider. Note to patient: [...] of the practitioner. documented in this encounter [facility] History of Present illness Narrative [...] obesity with alveolar hypoventilation affecting , antepartum ([facility]) documented in this encounter [facility] [...] and content) DATE CREATED AUTHOR 11/20/2022 [facility] DATE CREATED AUTHOR AUTHOR'S ORGANIZ ATION 09/10/2023 [facility] DATE CREATED AUTHOR AUTHOR'S ORGANIZ ATION 12/26/2023 [facility] EP[facility] Reason for Visit (unrecogniz [...] BE BASED ON THE PRIMARY CLINICAL RECORDS. [facility] [employer] provides no warranty or guarantee of the accuracy or completeness of information in this document.
[2023-12-27 12:14] VITALS: BP 123/83; PULSE 134
== END 2023-12-27 12:53 | disposition home or self-care (01) ==
LOC: FBCO 07:56 → FBC 12:07
PROVIDERS: PCP Nurse Practitioner Primary Care; Visit Provider Obstetrics & Gynecology
DX: O36.63X0 Maternal care for excessive fetal growth, third trimester, not applicable or unspecified (principal); Z3A.38 38 weeks gestation of pregnancy
CPT/HCPCS: 59025

== ENCOUNTER 2023-12-30 05:03 | Inpatient (IN) | payer MEDICAID, SELFPAY ==
[2023-12-30] VITALS (52 sets, daily range): BP systolic 105–139; BP diastolic 53–96; PULSE 76–144; TEMP 36.2–36.7
[2023-12-30] MEDS: 0.9 % SODIUM CHLORIDE 1,000 ML 125 ML IV (05:57)
[2023-12-30] MEDS: AMPICILLIN SODIUM 2,000 MG in 0.9 % SODIUM CHLORIDE 100 ML 200 MG IV (05:58)
[2023-12-30 06:05] LABS: Hematocrit 29.8 % (36.0-48.0); Hemoglobin 8.5 g/dL (12.0-16.0); Mean Corpuscular HGB Conc 28.5 g/dL (29.9-35.2); Mean Corpuscular Hemoglobin 20.4 pg (26.7-34.0); Mean Corpuscular Volume 71.5 fL (81.0-99.0); Mean Platelet Volume 10.5 fL (9.5-13.5); Platelet Count 315 10^3/uL (150-450); Red Blood Count 4.17 10^6/uL (4.20-5.40); Red Cell Distribution Width 18.1 % (11.0-15.0); White Blood Count 9.4 10^3/uL (4.0-11.0)
[2023-12-30] MEDS: OXYTOCIN/0.9 % SODIUM CHLORIDE 10 UNITS/500 ML PLAST..BAG 6 UNIT IV (06:05)
[2023-12-30 06:23] LABS: Amphetamine Screen Urine NEGATIVE (NEGATIVE); Barbiturates Screen Urine NEGATIVE (NEGATIVE); Benzodiazepines Screen Urine NEGATIVE (NEGATIVE); Buprenorphine Screen Urine NEGATIVE (NEGATIVE); Cannabinoid Screen Urine NEGATIVE (NEGATIVE); Cocaine Screen Urine NEGATIVE (NEGATIVE); Methadone Screen Urine NEGATIVE (NEGATIVE); Methamphetamines Screen Urine NEGATIVE (NEGATIVE); Opiate Screen Urine NEGATIVE (NEGATIVE); Oxycodone Screen Urine NEGATIVE (NEGATIVE); Phencyclidine Screen Urine NEGATIVE (NEGATIVE); Tricyclic Antidepressant Urine NEGATIVE (NEGATIVE)
[2023-12-30] MEDS: AMPICILLIN SODIUM 1,000 MG in 0.9 % SODIUM CHLORIDE 50 ML 100 MG IV ×2 (10:12→14:26)
[2023-12-30] MEDS: 0.9 % SODIUM CHLORIDE 1,000 ML 1000 ML IV (11:32)
[2023-12-30] MEDS: ROPIVACAINE HCL/PF 400 MG/200 ML PREMIX 6 MG EPIDURAL (12:06)
[2023-12-30] MEDS: ONDANSETRON PF 4 MG/2 ML VIAL IV (12:07)
[2023-12-30] MEDS: OXYTOCIN/0.9 % SODIUM CHLORIDE 20 UNITS/1,000 ML PLAST..BAG 125 UNIT IV (15:28)
--- NOTE | 2023-12-30 15:32 | PM.OBPRCVD ---
Procedure Intrapartal events: None Induction method: per pitocin protocol Delivery augmentation: rupture of membranes and pitocin Delivery monitor: external FHT and external uterine Route of delivery: Episiotomy Description: none L&D Laceration Description: none Estimated blood loss (mL): 350 Anesthesia type: Epidural Disposition: PACU Delivery date: 12/30/23 Gender: female presentation: vertex Placental delivery description: Spontaneous cord description: 3 Vessels
[2023-12-30] MEDS: GLYCERIN/WITCH HAZEL PADS 1 PAD TOPICAL (17:32)
[2023-12-30] MEDS: BENZOCAINE/MENTHOL 85 GRAM SPRAY BOTTLE 1 APPLIC TOPICAL (17:32)
[2023-12-30] MEDS: IBUPROFEN 600 MG TABLET PO (17:33)
[2023-12-31 00:16] VITALS: BP 116/74; PULSE 84; TEMP 35.6
[2023-12-31] MEDS: IBUPROFEN 600 MG TABLET PO ×3 (00:20→16:49)
[2023-12-31] MEDS: ACETAMINOPHEN 325 MG TABLET 650 MG PO (03:25)
[2023-12-31 07:30] VITALS: BP 108/66; PULSE 71
--- NOTE | 2023-12-31 08:06 | P.OBPN_ITS ---
OB - PN: Subj Subjective Patient comments: no complaints and pain well controlled [place] status: doing well Exam Constitutional Vital Signs, click to edit/add: Last Vital Signs Temp 96.1 F L 12/31/23 00:16 Pulse 71 12/31/23 07:30 Resp 20 12/30/23 20:52 BP 108/66 12/31/23 07:30 O2 Del Method Room Air 12/30/23 16:30 Documenting provider has reviewed patient's vital signs: yes Common normals: no apparent distress Respiratory Common normals: normal respiratory effort and clear to auscultation bilaterally Cardio Common normals: regular rate and regular rhythm GI Common normals: Normal to inspection, nondistended, normoactive bowel sounds present Extremity Common normals: no clubbing, cyanosis or edema and no calf tenderness OB - PN: A/P Plan - Vaginal Delivery day: 1 Plan: routine care, discharge home and follow up 6 weeks Time Spent with Patient Time: Total time spent is greater than 50% in coordination of care (as documented) at patient's floor/unit and/or counseling patient: Total time spent with greater than 50% in coordination of care (as documented) at patient's floor/unit and/or counseling patient: less than 15 minutes
[2023-12-31 08:31] LABS: Basophils Absolute Auto 0.1 10^3/uL (0.0-0.1); Basophils Percent Auto 0.4 % (0.2-2.0); Eosinophils Absolute Auto 0.2 10^3/uL (0.0-0.7); Eosinophils Percent Auto 1.3 % (0.9-7.0); Hemoglobin 7.8 g/dL (12.0-16.0); Immature Granulocytes Abs Auto 0.07 10^3/uL (0.00-0.03); Immature Granulocytes Pct Auto 0.6 % (0.0-0.5); Lymphocytes Absolute Auto 3.2 10^3/uL (1.2-3.8); Lymphocytes Percent Auto 28.4 % (20.5-60.0); Mean Corpuscular HGB Conc 28.9 g/dL (29.9-35.2); Mean Corpuscular Hemoglobin 20.6 pg (26.7-34.0); Mean Corpuscular Volume 71.2 fL (81.0-99.0); Monocytes Absolute Auto 0.8 10^3/uL (0.3-0.8); Monocytes Percent Auto 6.9 % (1.7-12.0); Neutrophils Absolute Auto 7.1 10^3/uL (1.4-6.5); Neutrophils Percent Auto 62.4 % (43.0-75.0); Platelet Count 251 10^3/uL (150-450); Red Blood Count 3.79 10^6/uL (4.20-5.40); Red Cell Distribution Width 18.1 % (11.0-15.0); White Blood Count 11.3 10^3/uL (4.0-11.0)
--- NOTE | 2023-12-31 08:39 | PC.NURSE ---
0830 trace, non pitting pedal edema noted. No change per patient.
[2023-12-31 16:45] VITALS: BP 139/67; PULSE 95; TEMP 37.2
== END 2023-12-31 19:40 | disposition home or self-care (01) | DRG 560 ==
PROVIDERS: Admitting Provider Obstetrics & Gynecology; PCP Nurse Practitioner Primary Care; Visit Provider Obstetrics & Gynecology
DX: O99.824 Streptococcus B carrier state complicating childbirth (principal); Z3A.38 38 weeks gestation of pregnancy; Z37.0 Single live birth; Z79.899 Other long term (current) drug therapy
CPT/HCPCS: 36415; 51702; 59025; 59050; 59410; 80307; 85025; 85027; 86850; 86900; 86901; 96365; 96375; 96376; J0290; J0665; J2405; J2795

== ENCOUNTER 2024-11-03 16:16 | Emergency (ER) | payer MEDICAID, SELFPAY ==
[2024-11-03 16:27] VITALS: BP 142/100; PULSE 112; TEMP 37.6; O2SAT 99; BMI 33.9
--- NOTE | 2024-11-03 16:33 | ED_ITS ---
HPI HPI - General Adult General Chief complaint: Upper Respiratory Infection Stated complaint: Sore Throat Symptoms Time Seen by Provider: 11/03/24 16:27 Source: patient Mode of arrival: walk-in Limitations: no limitations History of Present Illness HPI narrative: 24-year-old female presents for sore throat which she has had for 2 or 3 days. It hurts more when she swallows. She is concerned she has strep throat which she has had in the past. No fever but she has had a bit of a cough for a few days as well. Related Data Home Medications ?Medication ?Instructions ?Recorded ?Confirmed norethindrone (contraceptive) 0.35 mg 11/03/24 mg tablet (Deblitane) Previous Rx's ?Medication ?Instructions ?Recorded amoxicillin 500 mg capsule 500 mg PO TID 10 days #30 caps 11/03/24 Allergies Allergy/AdvReac Type Severity Reaction Status Date / Time No Known Allergies Allergy rash Verified 11/03/24 16:27 Opioid HPI Opioid Management Most Recent Opioid Data: Last Pain Scale 5 12/31/23 16:49 12/31/23 Ur Phencyclidine Scrn Negative (NEGATIVE) 12/30/23 05:40 12/12 03/06 Review of Systems ROS Narrative A ten point review of systems is negative except as noted above. PFSH PFSH Social History Little interest or pleasure in doing things: not at all Feeling down, depressed, or hopeless: not at all Exam Narrative Exam Narrative: Nurses note and vital signs reviewed and patient is not hypoxic. General: The patient appears well and in no apparent distress. Patient is resting comfortably on cart. Skin: Warm, dry, no pallor noted. There is no rash noted. Head: Normocephalic, atraumatic Eye: Normal conjunctiva, no drainage Ears, Nose, Mouth, and Throat: oral mucosa is moist. Nares patent. Pharyngeal erythema present with tonsillar enlargement. No peritonsillar swelling or uvular deviation or retropharyngeal swelling. She is handling her oral secretions well. No exudate noted Cardiovascular: Regular Rate and Rhythm Respiratory: Patient is in no distress, no accessory muscle use, lungs are clear to auscultation, no wheezing, rales or rhonchi Back: non-tender GI: Soft and nontender Musculoskeletal: The patient has no evidence of calf tenderness, no pitting edema, symmetrical pulses noted bilaterally Neurological: A&O, normal speech Psychiatric: Cooperative Constitutional Vital Signs, click to edit/add: Last Vital Signs Temp 99.7 F 11/03/24 16:27 Pulse 112 H 11/03/24 16:27 Resp 20 11/03/24 16:27 BP 142/100 H 11/03/24 16:27 Pulse Ox 99 11/03/24 16:27 O2 Del Method Room Air 11/03/24 16:27 Course Vital Signs Vital signs: Vital Signs Temperature 99.7 F 11/03/24 16:27 Pulse Rate 112 H 11/03/24 16:27 Respiratory Rate 20 11/03/24 16:27 Blood Pressure 142/100 H 11/03/24 16:27 Pulse Oximetry 99 11/03/24 16:27 Oxygen Delivery Method Room Air 11/03/24 16:27 Temperature 99.7 F 11/03/24 16:27 Pulse Rate 112 H 11/03/24 16:27 Respiratory Rate 20 11/03/24 16:27 Blood Pressure 142/100 H 11/03/24 16:27 Pulse Oximetry 99 11/03/24 16:27 Oxygen Delivery Method Room Air 11/03/24 16:27 Medical Decision Making MDM Narrative Medical decision making narrative: Strep test is positive and she was prescribed amoxicillin. Treatment diagnosis and follow-up were discussed with the patient. Differential Diagnosis Differential Diagnosis: Strep throat, viral pharyngitis, tonsillitis Lab Data Lab results reviewed: Yes I reviewed the patient's lab results Labs: Lab Results 11/03/24 Range/Units 16:24 Streptococcus Screen Positive A Discharge Plan Discharge Chief Complaint: Upper Respiratory Infection Clinical Impression: Strep throat Patient Disposition: Home, Self-Care Time of Disposition Decision: 17:09 Condition: Good Mode of Transportation: Private Vehicle Prescriptions / Home Meds: New amoxicillin 500 mg capsule 500 mg PO TID 10 Days Qty: 30 0RF No Action norethindrone (contraceptive) [Deblitane] 0.35 mg tablet Print Language: Spanish Instructions: Strep Throat (ED) Referrals: Rojas Keenan NP [Physician] - 1 week
[2024-11-03 16:44] LABS: Internal Control Within Normal Limits; Strep A Antigen Screen Positive
== END 2024-11-03 17:16 | disposition home or self-care (01) ==
PROVIDERS: Emergency Provider Emergency Medicine
DX: J02.0 Streptococcal pharyngitis (principal)
CPT/HCPCS: 87880; 99283

== ENCOUNTER 2025-02-10 12:18 | Outpatient (OUT) | payer MEDICAID, SELFPAY ==
--- OUTSIDE RECORDS SUMMARY | 2025-02-10 12:30 | XMS_ITS | CCD ---
Author Organization [facility] [employer] Care Team Providers Care Slot Machine Key Person Name Role Phone PAULO ., DR GRIGGS [...] Practitioner Anuja vailable Unavailable Primary Care Provider LEA Demarco R Referring Unavailable MARIELENA HERNANDEZ Attending Unavailable LEA COLE Attending Unavailable TRISHA SLATER Attending Unavailable DANO, LEA Attending Unavailable BRYON, TRISHA Attending Unavailable DANO, LEA Attending Unavailable BRYON, TRISHA Attending Unavailable DANO, LEA Attending Unavailable BRYON, TRISHA Attending Unavailable DANO, LEA Attending Unavailable DANO, LEA Attending Unavailable BRYON, TRISHA Attending Unavailable DANO, LEA Attending Unavailable Unavailable Primary Care Provider Unavailabl e Medications Current Medications Medication Drug Class(es) Dates [...] WEEKS GESTATION OF ] Onset: 03-11-2022 Episodic Residual codes; unclassified (1 source) Gestation period, 22 weeks; Translations: [22 weeks gestation of ] 09-03-2023 Episodic Substance-related disorders (2 sources) Cannabis use, unspecified, uncomplicated; Translations: [Drug use complicating childbirth] Onset: 03-29-2022 Episodic NEGATED: Highlighted row has been ruled out!Unclassified (2 sources) No known active problems 08-26-2017 Results Test Name Value Interpretation Reference Range Facility Urinalysis macro (dipstick) panel (U)on 08-21-2023 Bilirubin, UA Negative Negative - 4(70) +++ mg/dL [facility] Blood, UA Negative Negative - 50 Francis/mcL [facility] Clarity, UA Clear [facility] Color, UA Yellow [facility] Glucose, UA Negative Negative - 2000(110) ++++ mg/dL [facility] Interpretation and review of laboratory results Abnormal [facility] Ketones, UA Negative Negative - 160(16) ++++ mg/dL [facility] Leukocytes, UA Negative Negative - 500+++ Shravan/mcL [facility] Nitrite, UA Negative Negative - Positive [facility] pH, UA 6.0 5 - 9 [facility] Protein, UA Trace Negative - 2000(20) ++++ mg/dL [facility] Spec Grav, UA 1.030 1 - 1.03 [facility] Urobilinogen, UA 0.2 0.2 - 12 mg/dL [facility] AFP Single Marker Scrn, Mate rnal, Serumon 07-26-2023 Ms Alpha-Fetoprotein Negative [facility] Free Cell DNAon 2022 Free Cell Dna LOW RISK [facility] CBC without diffon Hematocrit (Bld) [Volume fraction] 38.7 % [facility] Hemoglobin (Bld) [Mass/Vol] 12.0 g/dL [facility] Platelets (Bld) [#/Vol] 365 10*3/uL [facility] HIV 1&2 AB/AG Screen (P24 AG )on 06-20-2023 HIV 1&2 AB/AG Non-Reactive [facility] Hepatitis B surface antigeno n 06-20-2023 Hepatitis B Surface Antigen Negative [facility] Hepatitis C(HCV) Ab w/ Refle x to PCRon 06-20-2023 HCV Ab Ql (S) Non-Reactive [facility] No Panel InformationOrdered By: Nicky Miles on 06-20-2023 [facility] Rubella IGG immune statuson 06-20-2023 Rubella immune IgG 2.23 IMMUNE [facility] Syphilis Total(Unknown Syphi lis Status)Ordered By: Nicky Miles on 06-20-2023 Syphilis Non-Reactive [facility] TSHon 06-20-2023 Thyroid Stimulating (3Rd Generation) Hormone/ Tsh 0.708 [facility] PAP ACOG PANEL 2: 21 to 29on 11-20-2022 . . Normal [facility] Comment on above: Performed By: #### [id number] #### [facility] [address] [place] [address] Dr. Homero Damon Age Gdln ACOG Testing - Normal [facility] Comment on above: Performed By: #### [id number] #### [facility] [address] [place] [address] Dr. Homero Damon DIAGNOSIS: Comment Normal [facility] Comment on above: Result Comment: NEGA TIVE FOR INTRAEPITHELIAL LESION OR MALIGNANCY. Performed By: #### [id number] #### [facility] [address] [place] [address] Dr. Homero Damon Methodology: Comment Normal [facility] Comment on above: Result Comment: This liquid based ThinPrep(R) pap test was screened with the use of an image guided system. Performed By: #### [id number] #### [facility] [address] [place] [address] Dr. Homero Damon Note: Comment Normal [facility] Comment on above: Result Comment: The Pap smear is a screening test designed to aid in the detection of premalignant and malignant conditions of the uterine cervix. It is not a diagnostic procedure and should not be used as the sole means of detecting cervical cancer. Both false-positive and false-negative reports do occur. . Performed By: #### [id number] #### [facility] [address] [place] [address] Dr. Homero Damon Performed by: Comment Normal [facility] Comment on above: Result Comment: Haris Alexis, Manager Telemetry (ASCP) Performed By: #### [id number] #### [facility] [address] [place] [address] Dr. Homero Damon Reflex Criteria: Comment Normal [facility] Comment on above: Result Comment: The HPV DNA reflex criteria were not met with this specimen result therefore, no HPV testing was performed. . Performed By: #### [id number] #### [facility] [address] [place] [address] Dr. Homero Damon Specimen adequacy: Comment Normal [facility] Comment on above: Result Comment: Sati sfactory for evaluation. Endocervical and/or squamous metaplastic cells (endocervical component) are present. Performed By: #### [id number] #### [facility] [address] [place] [address] Dr. Homero Damon CANNABINOID (THC) CONFIRMATI ON, URINEon 03-19-2022 Cannabinoid Positive Abnormal [facility] Comment on above: Performed By: #### T HCCONF #### [facility] [address] [place] [address] Dr. Homero Douglas THC GC/MS Conf 47 ng/mL Normal Cutoff=10 [facility] Comment on above: Performed By: #### T HCCONF #### [facility] [address] [place] [address] Dr. Homero Damon CBC AUTO DIFFon 03-15-2022 BASO # 0.0 103/ul Normal 0.0-0.1 [facility] Comment on above: Performed By: #### C BC #### [facility] [address] [place] [address] Dr. Homero Damon Basophils/100 WBC (Bld) 0.2 % Normal 0.2-2.0 [facility] Comment on above: Performed By: #### C BC #### [facility] [address] [place] [address] Dr. Homero Damon EO # 0.2 103/ul Normal 0.0-0.7 [facility] Comment on above: Performed By: #### C BC #### [facility] [address] [place] [address] Dr. Homero Damon Eosinophils/100 WBC (Bld) 1.5 % Normal 0.9-7.0 [facility] Comment on above: Performed By: #### C BC #### [facility] [address] [place] [address] Dr. Homero Damon Erythrocyte distribution width (RBC) [Ratio] 16.1 % Critically high 11.0-15.0 [facility] Comment on above: Performed By: #### C BC #### [facility] [address] [place] [address] Dr. Homero Damon Hematocrit (Bld) [Volume fraction] 32.7 % Critically low 36.0-48.0 [facility] Comment on above: Performed By: #### C BC #### [facility] [address] [place] [address] Dr. Homero Damon Hemoglobin (Bld) [Mass/Vol] 9.7 g/dL Critically low 12.0-16.0 [facility] Comment on above: Performed By: #### C BC #### [facility] [address] [place] [address] Dr. Homero Damon IG # 0.04 10e3/ul Critically high 0.00-0.03 [facility] Comment on above: Performed By: #### C BC #### [facility] [address] [place] [address] Dr. Homero Damon IG % 0.4 % Normal 0.0-0.5 [facility] Comment on above: Performed By: #### C BC #### [facility] [address] [place] [address] Dr. Homero Damon LYMPH # 3.5 103/ul Normal 1.2-3.8 [facility] Comment on above: Performed By: #### C BC #### [facility] [address] [place] [address] Dr. Homero Damon Lymphocytes/100 WBC (Bld) 32.9 % Normal 20.5-60.0 [facility] Comment on above: Performed By: #### C BC #### [facility] [address] [place] [address] Dr. Homero Damon MANUAL DIFF REQ NO Normal [facility] Comment on above: Performed By: #### C BC #### [facility] [address] [place] [address] Dr. Homero Damon MCH (RBC) [Entitic mass] 23.0 pg Critically low 26.7-34.0 [facility] Comment on above: Performed By: #### C BC #### [facility] [address] [place] [address] Dr. Homero Damon MCHC (RBC) [Mass/Vol] 29.7 g/dL Critically low 29.9-35.2 [facility] Comment on above: Performed By: #### C BC #### [facility] [address] [place] [address] Dr. Homero Damon MCV (RBC) [Entitic vol] 77.7 fL Critically low 81.0-99.0 [facility] Comment on above: Performed By: #### C BC #### [facility] [address] [place] [address] Dr. Homero Damon MONO # 0.8 103/ul Normal 0.3-0.8 [facility] Comment on above: Performed By: #### C BC #### [facility] [address] [place] [address] Dr. Homero Damon Monocytes/100 WBC (Bld) 7.1 % Normal 1.7-12.0 [facility] Comment on above: Performed By: #### C BC #### [facility] [address] [place] [address] Dr. Homero Damon NEUT # 6.1 103/ul Normal 1.4-6.5 [facility] Comment on above: Performed By: #### C BC #### [facility] [address] [place] [address] Dr. Homero Damon Neutrophils/100 WBC (Bld) 57.9 % Normal 43.0-75.0 [facility] Comment on above: Performed By: #### C BC #### [facility] [address] [place] [address] Dr. Homero Damon Platelet mean volume (Bld) [Entitic vol] 11.0 fL Normal 9.5-13.5 [facility] Comment on above: Performed By: #### C BC #### [facility] [address] [place] [address] Dr. Homero Damon PLT 253 103/ul Normal 150-450 [facility] Comment on above: Performed By: #### C BC #### [facility] [address] [place] [address] Dr. Homero Damon RBC 4.21 106/ul Normal 4.20-5.40 [facility] Comment on above: Performed By: #### C BC #### [facility] [address] [place] [address] Dr. Homero Damon WBC 10.6 103/ul Normal 4.0-11.0 [facility] Comment on above: Performed By: #### C BC #### [facility] [address] [place] [address] Dr. Homero Damon CBC AUTO DIFFon 03-13-2022 BASO # 0.0 103/ul Normal 0.0-0.1 [facility] Comment on above: Performed By: #### T HCCONF #### [facility] [address] [place] [address] Dr. Homero Damon Basophils/100 WBC (Bld) 0.3 % Normal 0.2-2.0 [facility] Comment on above: Performed By: #### T HCCONF #### [facility] [address] [place] [address] Dr. Homero Damon EO # 0.0 103/ul Normal 0.0-0.7 [facility] Comment on above: Performed By: #### T HCCONF #### [facility] [address] [place] [address] Dr. Homero Damon Eosinophils/100 WBC (Bld) 0.2 % Critically low 0.9-7.0 [facility] Comment on above: Performed By: #### T HCCONF #### [facility] [address] [place] [address] Dr. Homero Damon Erythrocyte distribution width (RBC) [Ratio] 16.0 % Critically high 11.0-15.0 [facility] Comment on above: Performed By: #### T HCCONF #### [facility] [address] [place] [address] Dr. Homero Damon Hematocrit (Bld) [Volume fraction] 35.3 % Critically low 36.0-48.0 [facility] Comment on above: Performed By: #### T HCCONF #### [facility] [address] [place] [address] Dr. Homero Damon Hemoglobin (Bld) [Mass/Vol] 11.0 g/dL Critically low 12.0-16.0 [facility] Comment on above: Performed By: #### T HCCONF #### [facility] [address] [place] [address] Dr. Homero Damon IG # 0.04 10e3/ul Critically high 0.00-0.03 [facility] Comment on above: Performed By: #### T HCCONF #### [facility] [address] [place] [address] Dr. Homero Damon IG % 0.4 % Normal 0.0-0.5 [facility] Comment on above: Performed By: #### T HCCONF #### [facility] [address] [address] [address] Homero Damon LYMPH # 2.5 103/ul Normal 1.2-3.8 [facility] Comment on above: Performed By: #### T HCCONF #### [facility] [address] [place] [address] Dr. Homero Damon Lymphocytes/100 WBC (Bld) 26.4 % Normal 20.5-60.0 [facility] Comment on above: Performed By: #### T HCCONF #### [facility] [address] [place] [address] Dr. Homero Damon MANUAL DIFF REQ NO Normal [facility] Comment on above: Performed By: #### T HCCONF #### [facility] [address] [place] [address] Dr. Homero Damon MCH (RBC) [Entitic mass] 23.5 pg Critically low 26.7-34.0 [facility] Comment on above: Performed By: #### T HCCONF #### [facility] [address] [address] [address] Homero Damon MCHC (RBC) [Mass/Vol] 31.2 g/dL Normal 29.9-35.2 [facility] Comment on above: Performed By: #### T HCCONF #### [facility] [address] [place] [address] Dr. Homero Damon MCV (RBC) [Entitic vol] 75.4 fL Critically low 81.0-99.0 [facility] Comment on above: Performed By: #### T HCCONF #### [facility] [address] [place] [address] Dr. Homero Damon MONO # 0.6 103/ul Normal 0.3-0.8 [facility] Comment on above: Performed By: #### T HCCONF #### [facility] [address] [place] [address] Dr. Homero Damon Monocytes/100 WBC (Bld) 6.4 % Normal 1.7-12.0 [facility] Comment on above: Performed By: #### T HCCONF #### [facility] [address] [place] [address] Dr. Homero Damon NEUT # 6.4 103/ul Normal 1.4-6.5 [facility] Comment on above: Performed By: #### T HCCONF #### [facility] [address] [place] [address] Dr. Homero Damon Neutrophils/100 WBC (Bld) 66.3 % Normal 43.0-75.0 [facility] Comment on above: Performed By: #### T HCCONF #### [facility] [address] [place] [address] Dr. Homero Damon Platelet mean volume (Bld) [Entitic vol] 11.0 fL Normal 9.5-13.5 [facility] Comment on above: Performed By: #### T HCCONF #### [facility] [address] [place] [address] Dr. Homero Damon PLT 312 103/ul Normal 150-450 [facility] Comment on above: Performed By: #### T HCCONF #### [facility] [address] [place] [address] Dr. Homero Damon RBC 4.68 106/ul Normal 4.20-5.40 [facility] Comment on above: Performed By: #### T HCCONF #### [facility] [address] [place] [address] Dr. Homero Damon WBC 9.6 103/ul Normal 4.0-11.0 [facility] Comment on above: Performed By: #### T HCCONF #### [facility] [address] [place] [address] Dr. Homero Damon Covid-19 PCR (CVDTB)on 02-13 SARS-CoV-2 (COVID-19) RNA LORRAINE+probe Ql (Unsp spec) Not detected Normal NOT DETECTED [facility] Comment on above: [...] for this test is supported by the [employer] of Health and Human Service's declaration that [...] used). Performed By: #### C VDTBH #### [facility] [address] [place] [address] Dr. Homero Damon DRUG SCREEN RAPID (URINE)on 03-13-2022 AMP Negative Normal NEGATIVE [facility] Comment on above: Performed By: #### D RUGRPD #### [facility] [address] [place] [address] Dr. Homero Damon BAR Negative Normal NEGATIVE [facility] Comment on above: Performed By: #### D RUGRPD #### [facility] [address] [address] [address] Homero Damon BUP Negative Normal NEGATIVE [facility] Comment on above: Performed By: #### D RUGRPD #### [facility] [address] [place] [address] Dr. Homero Damon BZO Negative Normal NEGATIVE [facility] Comment on above: Performed By: #### D RUGRPD #### [facility] [address] [address] [address] Homero Damon MADHURI Negative Normal NEGATIVE [facility] Comment on above: Performed By: #### D RUGRPD #### [facility] [address] [place] [address] Dr. Homero Damon CUT-OFFS SEE BELOW Normal [facility] Comment on above: Result Comment: [...] ng/mL Performed By: #### D RUGRPD #### [facility] [address] [place] [address] Dr. Homero Damon DRUG CUT HEADER DRUG CLASS TEST SYSTEM CUT-OFF CONCENTRATIONS ARE FOLLOWS: Normal [facility] Comment on above: Performed By: #### D RUGRPD #### [facility] [address] [place] [address] Dr. Homero Damon mAMP Negative Normal NEGATIVE [facility] Comment on above: Performed By: #### D RUGRPD #### [facility] [address] [place] [address] Dr. Homero Damon MTD Negative Normal NEGATIVE [facility] Comment on above: Performed By: #### D RUGRPD #### [facility] [address] [place] [address] Dr. Homero Damon OPI Negative Normal NEGATIVE [facility] Comment on above: Performed By: #### D RUGRPD #### [facility] [address] [place] [address] Dr. Homero Damon OXY Negative Normal NEGATIVE [facility] Comment on above: Performed By: #### D RUGRPD #### [facility] [address] [place] [address] Dr. Homero Damon PCP Negative Normal NEGATIVE [facility] Comment on above: Performed By: #### D RUGRPD #### [facility] [address] [place] [address] Dr. Homero Damon PPX Negative Normal NEGATIVE [facility] Comment on above: Performed By: #### D RUGRPD #### [facility] [address] [place] [address] Dr. Homero Damon TCA Negative Normal NEGATIVE [facility] Comment on above: Performed By: #### D RUGRPD #### [facility] [address] [place] [address] Dr. Homero Damon THC Positive Abnormal NEGATIVE [facility] Comment on above: Performed By: #### D RUGRPD #### [facility] [address] [place] [address] Dr. Homero Damon TYPE AND SCREENon 03-13-2022 TYPE AND SCREEN Negative Normal [facility] Comment on above: Performed By: #### T HCCONF #### [facility] [address] [place] [address] Dr. Homero Damon UA (CLEAN/CATCH) GREEN MARKETING ANALYST/MICRO I F IND.on 03-10-2022 Bilirubin Ql (U) Negative Normal NEGATIVE [facility] Comment on above: Performed By: #### U ACSIND #### [facility] [address] [place] [address] Dr. Homero Damon Clarity (U) CLEAR Normal CLEAR [facility] Comment on above: Performed By: #### U ACSIND #### [facility] [address] [place] [address] Dr. Homero Damon Color (U) YELLOW Normal YELLOW [facility] Comment on above: Performed By: #### U ACSIND #### [facility] [address] [place] [address] Dr. Homero Damon Glucose Ql (U) Negative Normal NEGATIVE [facility] Comment on above: Performed By: #### U ACSIND #### [facility] [address] [place] [address] Dr. Homero Damon Hemoglobin Ql (U) Negative Normal NEGATIVE [facility] Comment on above: Performed By: #### U ACSIND #### [facility] [address] [address] [address] Homero Damon Ketones Ql (U) Negative Normal NEGATIVE [facility] Comment on above: Performed By: #### U ACSIND #### [facility] [address] [address] [address] Homero Damon LEUKOCYTES Negative Normal NEGATIVE [facility] Comment on above: Performed By: #### U ACSIND #### [facility] [address] [address] [address] Homero Damon Nitrite Ql (U) Negative Normal NEGATIVE [facility] Comment on above: Performed By: #### U ACSIND #### [facility] [address] [place] [address] Dr. Homero Damon pH (U) 6.0 [pH] Normal 5-9 [facility] Comment on above: Performed By: #### U ACSIND #### [facility] [address] [address] [address] Homero Damon SPEC GRAVITY 1.025 Normal 1.005-<=1.025 [facility] Comment on above: Performed By: #### U ACSIND #### [facility] [address] [address] [address] Homero Damon UA PROTEIN Negative Normal NEGATIVE/ TRACE [facility] Comment on above: Performed By: #### U ACSIND #### [facility] [address] [address] [address] Homero Damon UR MICRO IND NOT INDICATED Normal [facility] Comment on above: Performed By: #### U ACSIND #### [facility] [address] [address] [address] Homero Damon Urobilinogen Qn (U) 1.0 {Saad'U}/dL Normal 0.2 - 1. 0 [facility] Comment on above: Performed By: #### U ACSIND #### [facility] [address] [place] [address] Dr. Homero Damon GROUP B STREP CULTUREon - S. agalactiae Ag Ql (Unsp spec) Culture Observations: Called Group B Strep to Millie Armando, Dynamometer T[employer] Engine on 02/25 @ 0917 Isolate 1 Streptococcus agalactiae Moderate growth of ORGANISM 1 Streptococcus agalactiae ANTIBIOTIC M.I.C RX STATUS Benzylpenicillin <=0.06 S F Ampicillin <=0.25 S F Cefotaxime <=0.12 S F Ceftriaxone <=0.12 S F Levofloxacin 0.5 S F Erythromycin >=8 R F Clindamycin >=1 R F Linezolid <=2 S F Vancomycin 0.5 S F Tetracycline >=16 R F Normal [facility] Comment on above: Performed By: #### T HCCONF #### [facility] [address] [place] [address] Dr. Homero Damon CULTURE URINEon 02-23-2022 CULTURE [...] Trimethoprim/Sulfame thoxazole <=20 S F Normal [facility] Comment on above: Performed By: #### U RCX #### [facility] [address] [place] [address] Dr. Homero Damon UA RANDOM W/MICROSCOPICon BACTERIA LARGE Abnormal NONE SEEN [facility] Comment on above: Performed By: #### U AMIC #### [facility] [address] [place] [address] Dr. Homero Damon Bilirubin Ql (U) Negative Normal NEGATIVE [facility] Comment on above: Performed By: #### U AMIC #### [facility] [address] [place] [address] Dr. Homero Damon CAST NONE SEEN Normal NONE SEEN [facility] Comment on above: Performed By: #### U AMIC #### [facility] [address] [place] [address] Dr. Homero Damon Clarity (U) CLEAR Normal CLEAR [facility] Comment on above: Performed By: #### U AMIC #### [facility] [address] [address] [address] Homero Damon Color (U) LT. YELLOW Normal YELLOW [facility] Comment on above: Performed By: #### U AMIC #### [facility] [address] [place] [address] Dr. Homero Damon Crystals LM Nom (Urine sed) NONE SEEN Normal NONE SEEN [facility] Comment on above: Performed By: #### U AMIC #### [facility] [address] [place] [address] Dr. Homero Damon Epithelial cells LM Ql (Urine sed) FEW Abnormal NONE SEEN /RARE [facility] Comment on above: Performed By: #### U AMIC #### [facility] [address] [place] [address] Dr. Homero Damon Glucose Ql (U) Negative Normal NEGATIVE [facility] Comment on above: Performed By: #### U AMIC #### [facility] [address] [place] [address] Dr. Homero Damon Hemoglobin Ql (U) Negative Normal NEGATIVE [facility] Comment on above: Performed By: #### U AMIC #### [facility] [address] [address] [address] Homero Damon Ketones Ql (U) TRACE Abnormal NEGATIVE [facility] Comment on above: Performed By: #### U AMIC #### [facility] [address] [place] [address] Dr. Homero Damon LEUKOCYTES TRACE Abnormal NEGATIVE [facility] Comment on above: Performed By: #### U AMIC #### [facility] [address] [place] [address] Dr. Homero Damon MUCOUS NONE SEEN Normal NONE SEEN [facility] Comment on above: Performed By: #### U AMIC #### [facility] [address] [place] [address] Dr. Homero Damon Nitrite Ql (U) Negative Normal NEGATIVE [facility] Comment on above: Performed By: #### U AMIC #### [facility] [address] [place] [address] Dr. Homero Damon pH (U) 6.0 [pH] Normal 5-9 [facility] Comment on above: Performed By: #### U AMIC #### [facility] [address] [place] [address] Dr. Homero Damon RBC NONE SEEN Abnormal 0-2 [facility] Comment on above: Performed By: #### U AMIC #### [facility] [address] [place] [address] Dr. Homero Damon SPEC GRAVITY 1.025 Normal 1.005-<=1.025 [facility] Comment on above: Performed By: #### U AMIC #### [facility] [address] [place] [address] Dr. Homero Damon UA PROTEIN Negative Normal NEGATIVE/ TRACE [facility] Comment on above: Performed By: #### U AMIC #### [facility] [address] [place] [address] Dr. Homero Damon Urobilinogen Qn (U) 0.2 {Saad'U}/dL Normal 0.2 - 1. 0 [facility] Comment on above: Performed By: #### U AMIC #### [facility] [address] [place] [address] Dr. Homero Damon WBC 5-10 Abnormal NONE SEEN [facility] Comment on above: Performed By: #### U AMIC #### [facility] [address] [place] [address] Dr. Homero Damon GLUCOSE - 1HRon 12-12-2021 Glucose [Mass/Vol] 128 mg/dL Critically high 74-[address] [facility] Comment on above: Performed By: #### G LU1HR #### [facility] [address] [place] [address] Dr. Homero Damon HEMOGRAM AND PLATELon 2021 Hematocrit (Bld) [Volume fraction] 38.8 % Normal 36.0-48.0 [facility] Comment on above: Performed By: #### H H #### [facility] [address] [place] [address] Dr. Homero Damon Hemoglobin (Bld) [Mass/Vol] 12.3 g/dL Normal 12.0-16.0 [facility] Comment on above: Performed By: #### H H #### [facility] [address] [place] [address] Dr. Homero Damon MCH (RBC) [Entitic mass] 25.8 pg Critically low 26.7-34.0 [facility] Comment on above: Performed By: #### H H #### [facility] [address] [place] [address] Dr. Homero Damon MCHC (RBC) [Mass/Vol] 31.7 g/dL Normal 29.9-35.2 [facility] Comment on above: Performed By: #### H H #### [facility] [address] [place] [address] Dr. Homero Damon MCV (RBC) [Entitic vol] 81.3 fL Normal 81.0-99.0 [facility] Comment on above: Performed By: #### H H #### [facility] [address] [place] [address] Dr. Homero Damon PLT 304 103/ul Normal 150-450 [facility] Comment on above: Performed By: #### H H #### [facility] [address] [place] [address] Dr. Homero Damon RBC 4.77 106/ul Normal 4.20-5.40 [facility] Comment on above: Performed By: #### H H #### [facility] [address] [place] [address] Dr. Homero Damon WBC 9.9 103/ul Normal 4.0-11.0 [facility] Comment on above: Performed By: #### H H #### [facility] [address] [place] [address] Dr. Homero Damon CULTURE URINEon 12-06-2021 CULTURE [...] F Trimethoprim/Sulfame thoxazole <=20 S F Normal [facility] Comment on above: Performed By: #### [facility] #### [facility] [address] [place] [address] Dr. Homero Damon Vital Signs Date Time Vital Sign Value Performing Clinician Faci lity 09-03-2023 10:39-0500 Body height 160 cm Marielena Hernandez MD Work Phone: [facility] 09-03-2023 10:39-0500 Body mass index (BMI) [Ratio] 41.45 kg/m2 Marielena Hernandez MD Work Phone: [facility] 09-03-2023 10:39-0500 Body weight 106.14 kg Marielena Hernandez MD Work Phone: [facility] 09-03-2023 10:39-0500 Diastolic blood pressure 88 mm[Hg] Marielena Hernandez MD Work Phone: [facility] 09-03-2023 10:39-0500 Heart rate 98 /min Marielena Hernandez MD Work Phone: [facility] 09-03-2023 10:39-0500 Systolic blood pressure 123 mm[Hg] Marielena Hernandez MD Work Phone: [facility] 08-21-2023 10:31-0500 Body mass index (BMI) [Ratio] 43.48 kg/m2 Trisha CASTELLANOS Work Phone: [facility] 08-21-2023 10:31-0500 Body weight 104.38 kg Trisha CASTELLANOS Work Phone: [facility] 08-21-2023 10:31-0500 Diastolic blood pressure 60 mm[Hg] Trisha CASTELLANOS Work Phone: [facility] 08-21-2023 10:31-0500 Systolic blood pressure 118 mm[Hg] Trisha CASTELLANOS Work Phone: [facility] Healthcare Encounters Encounter Date Encounter Type Care Provider Facility Start: 02-16-2024 End: 02-16-2024 ambulatory LEA DANO Not Available Start: 12-25-2023 End: 12-25-2023 ambulatory TRISHA BRYON [...] 09-03-2023 End: 09-03-2023 ambulatory LEA R DANO [facility] Start: 09-03-2023 End: 09-03-2023 Office outpatient visit 10 minutes Marielena Hernandez MD Work Phone: [facility] [place] Comment on above: 22 weeks gestation o f (Primary Dx); Severe obesity with alveolar hypoventilation affecting , antepartum ([facility]) Start: 08-21-2023 End: 08-21-2023 Office outpatient visit 15 minutes Trisha CASTELLANOS Work Phone: [facility] Comment on above: Second trimester pre gnancy; Diabetes mellitus screening Start: 08-21-2023 End: 08-21-2023 ambulatory TRISHA SLATER Not Available Start: 08-20-2023 Chart abstracting Marielena Hernandez MD Work Phone: [facility] Start: 07-23-2023 End: 07-23-2023 ambulatory LEA COLE Not Available Start: 06-20-2023 End: 06-20-2023 ambulatory LEA XAVIERO Not Available Start: 11-13-2022 End: 11-13-2022 ambulatory [...] dip stick/tabl et rgnt non-auto w/o micrscp rTisha CASTELLANOS Work Phone: Start: 07-26-2023 Alpha-fetoprotein serum [...] Td Vaccines (8 - Td or Tdap) [facility] Start: 09-17-2023 End: 09-17-2023 Patient encounter procedure 09/17/2023 10:50 AM EST Routine [facility] [address] [place] [id number] Lea Cole, [address] [place] [address] [facility] Start: 09-03-2023 End: 09-03-2023 Patient encounter procedure [facility] Start: 08-21-2023 End: 08-21-2024 CBC panel - Blood by Automated count CBC Lab Routine Diabetes mellitus screening Expected: 08/21/2023 (Approximate), Expires: 08/21/2024 [facility] Work Phone: Comment on above: Expected: 08/21/2023 (Approximate), Expires: 08/21/2024 Start: 08-21-2023 End: 08-21-2024 Measurement of glucose 1 hour after glucose challenge for glucose tolerance test Glucose tolerance, 1 hour Lab Routine Diabetes mellitus screening Expected: 08/21/2023 (Approximate), Expires: 08/21/2024 [facility] Comment on above: Expected: 08/21/2023 (Approximate), Expires: 08/21/2024 Start: 03-14-2023 Influenza vaccination Influenza Vacc ine [facility] Start: 2021 Screening for malign ant neoplasm of cervix Pap Smear [facility] Start: 2019 DTaP,Tdap and Td Vaccines (1 - Tdap) DTaP,Tdap and Td Vaccines (1 - Tdap) [facility] Start: 2018 Adult BMI Follow Up Plan Adult BMI Follow Up Plan [facility] Start: 2018 Adult BMI Screening Adult BMI Screen ing [facility] Start: 2012 Depression Screening Depression Scre ening [facility] Start: 2012 Tobacco Screening Tobacco Screening [facility] Immunizations Immunization Date Immunization Notes Care Provider Fa cility 06-03-2013 influenza virus vaccine, unspecified formulation Marielena Hernandez MD Work Phone: [facility] Payers Date Payer Category Payer Medicaid [id number] 2022 Medicaid [id number] 2022 Medicaid [id number] 2000 Unknown [id number] 2.16.84 0.1.274345.3.579.2.593 2000 Unknown [id number] 2.16.84 0.1.461042.3.579.2.593 2000 Unknown [id number] 2.16.84 0.1.487663.3.579.2.593 2000 Unknown [id number] 2.16.84 0.1.275167.3.579.2.593 2000 Unknown [id number] 2.16.84 0.1.273206.3.579.2.593 2000 Unknown [id number] 2.16.84 0.1.448828.3.579.2.593 2000 Unknown [id number] 2.16.84 0.1.383221.3.579.2.593 2000 Unknown [id number] 2.16.8 40.1.835583.3.579.2.1286 2000 Unknown [id number] 2.16.8 40.1.361509.3.579.2.1286 2000 Unknown [id number] 2.16.84 0.1.426322.3.579.2.1259 2000 Unknown [id number] 2.16.84 0.1.524171.3.579.2.1259 2000 Unknown [id number] 2.16.84 0.1.906682.3.579.2.9 2000 Unknown [id number] 2.16.84 0.1.996206.3.579.2.1259 2000 Unknown [id number] 2.16.84 0.1.097459.3.579.2.9 2000 Unknown [id number] 2.16.84 0.1.476152.3.579.2.1259 2000 Unknown [id number] 2.16.84 0.1.602122.3.579.2.9 2000 Unknown [id number] 2.16.84 0.1.079661.3.579.2.1259 2000 Unknown [id number] 2.16.84 0.1.953908.3.579.2.9 2000 Unknown [id number] 2.16.84 0.1.268550.3.579.2.9 2000 Unknown [id number] 2.16.84 0.1.279871.3.579.2.9 2000 Unknown [id number] 2.16.84 0.1.352283.3.579.2.1259 2000 Unknown [id number] 2.16.840 .1.747516.3.579.2.1259 1959 Unknown [id number] Social History Date Type Detail Facility Start: 07-02-2023 End: 09-03-2023 Tobacco smoking status LAIS Never smoked tobacco [facility] Start: 08-24-2020 End: 07-02-2023 History of Social function [facility] Start: 08-24-2020 End: 07-02-2023 Tobacco use panel [facility] Start: 04-14-2023 [facility] Start: 2000 Sex Assigned At Not on file P [facility] Start: 06-13-2023 Gender identity Identifies as female gender (finding) [facility] Start: 04-08-2017 End: 09-03-2023 Tobacco use and exposure Smokeless tobacco non-user [facility] Start: 08-20-2023 End: 09-03-2023 Alcohol intake Current non-drinker of alcohol (finding) [facility] Childcare Unknown [facility] Goals Date Patient Goal Desired Activity /State [...] Yes Have you been seen here at [facility] in a previous ? No Recent ER visits or hospitalizations? No Bring blood sugar log or meter with you today? (Please bring them with you for every visit at [facility]) N/A Traveled outside the country [...] TESTS AND ULTRASOUND REPORTS: Referral records and [facility] chart were reviewed Pertinent Ultrasound [...] patient is in complete care of her civil engineering designer. Patient does have ultrasound and office visit [...] patient/family/caregiver Referring and communicating with other health acute care clinical nurse specialist (not separately reported) Documenting clinical information in the electronic or other health record Marielena Hernandez MD [facility] [address] [place] [address] [facility], the CDC, and other organizations representing maternal and public health professionals recommend that , , and lactating people and those considering receive the COVID-19 vaccination. Vaccination is the best method to reduce maternal and complications of SARS-CoV-2 infection. This document was created with [employer] technology. Though I make every effort to review the dictation as it is transcribed, on occasion the spoken word can be misinterpreted by the technology leading to inappropriate words, phrases, or sentences. This note is addressed to the requesting provider as a consultation for clinical guidance. Specific medical abbreviations are occasionally used and those are generally approved by the [place]?Board of?Obstetrics and?Gynecology?as well as?[place] s abbreviations. The above plan of care was based solely on the diagnoses for which a consultation was requested. ?More frequent testing may be indicated based on her other medical/obstetrical conditions. The management of other or medical conditions is beyond the scope of requested consultation and will continue to be followed by the primary civil engineering designer or primary care provider. Note to patient: [...] of the practitioner. documented in this encounter [facility] History of Present illness Narrative 08-21-2023 [...] obesity with alveolar hypoventilation affecting , antepartum ([facility]) [facility] encounter [facility] [...] [facility] DATE CREATED AUTHOR AUTHOR'S ORGANIZ ATION 02/17/2024 [facility] EPIC Reason for Visit [...] BE BASED ON THE PRIMARY CLINICAL RECORDS. [email or web address] provides no warranty or guarantee of the accuracy or completeness of information in this document.
[2025-02-10 12:46] LABS: Hematocrit 44.4 % (36.0-48.0); Hemoglobin 13.8 g/dL (12.0-16.0); Immature Granulocytes Abs Auto 0.03 10^3/uL (0.00-0.03); Immature Granulocytes Pct Auto 0.3 % (0.0-0.5); Lymphocytes Absolute Auto 2.8 10^3/uL (1.2-3.8); Mean Corpuscular HGB Conc 31.1 g/dL (29.9-35.2); Mean Corpuscular Hemoglobin 24.6 pg (26.7-34.0); Mean Corpuscular Volume 79.1 fL (81.0-99.0); Platelet Count 418 10^3/uL (150-450); Red Blood Count 5.61 10^6/uL (4.20-5.40); White Blood Count 9.5 10^3/uL (4.0-11.0)
[2025-02-10 13:23] LABS: Alanine Aminotransferase 23 U/L (14-59); Albumin Globulin Ratio 0.8; Albumin Level 3.6 g/dL (3.4-5.0); Alkaline Phosphatase 85 U/L (46-116); Anion Gap 11.6; Aspartate Amino Transferase 11 U/L (15-37); Blood Urea Nitrogen 10.0 mg/dL (7.0-18.0); Calcium 9.0 mg/dL (8.5-10.1); Carbon Dioxide 27.7 mmol/L (21.0-32.0); Chloride 102 mmol/L (98-107); Cholesterol 113 mg/dL (<=200); Estimated GFR (African America >60 (>=60 mL/min/1.73m^2); Estimated GFR (Non-African Ame >60 (>=60 mL/min/1.73m^2); Globulin 4.4 g/dL; Glucose 91 mg/dL (74-106); HDL Cholesterol 42 mg/dL (40-60); Potassium 4.3 mmol/L (3.5-5.1); Sodium 137 mmol/L (136-145); Total Protein 8.0 g/dL (6.4-8.2); Triglycerides 71 mg/dL (<=150); VLDL CHOLESTEROL 14.2 mg/dL
[2025-02-10 13:33] LABS: Thyroid Stimulating Hormone 1.182 uIU/mL (0.358-3.740)
[2025-02-10 13:44] LABS: Cannabinoid Screen Urine POSITIVE (NEGATIVE); Methamphetamines Screen Urine NEGATIVE (NEGATIVE); Tricyclic Antidepressant Urine NEGATIVE (NEGATIVE)
[2025-02-10 14:02] LABS: Iron 43.0 ug/dL (50.0-170.0); Percent Iron Saturation 12.8 %; Total Iron Binding Capacity 335.0 ug/dL (250.0-450.0)
[2025-02-10 14:28] LABS: Ferritin 12.0 ng/mL (8.0-252.0)
[2025-02-11 04:07] LABS: Vitamin B12 497 pg/mL (232-1245)
[2025-02-14 22:08] LABS: Carboxy THC Conf, MS, UR 220 ng/mL (Cutoff=10)
== END 2025-02-10 12:19 | disposition home or self-care (01) ==
LOC: LAB 12:18
DX: R73.01 Impaired fasting glucose (principal); Z13.6 Encounter for screening for cardiovascular disorders; Z79.899 Other long term (current) drug therapy; R53.82 Chronic fatigue, unspecified
CPT/HCPCS: 36415; 80053; 80061; 80307; 80326; 80331; 80334; 80337; 80338; 80341; 80344; 80347; 80348; 80349; 80353; 80354; 80355; 80357; 80358; 80359; 80360; 80361; 80364; 80365; 80366; 80367; 80368; 80370; 80371; 80372; 80373; 80377; 82306; 82570; 82607; 82728; 83036; 83540; 83550; 83992; 84443; 85025

== ENCOUNTER 2025-03-16 14:49 | Outpatient (REF) | payer MEDICAID, SELFPAY ==
--- OUTSIDE RECORDS SUMMARY | 2025-03-10 07:15 | XMS_ITS ---
Author Organization [facility] vices Address [address] [place], [place] [id number] Care Team Providers Care Manager Flight Operations Name Role Phone Ramiro Jamila Primary Care Provider Allergies No Known Allergies REASON FOR VISIT 1 month Weight Loss Medications Medication SIG (Take, Route, Frequency, Duration) Notes Start Date End Date Status Phentermine HCl 37.5 MG 1 tablet before breakfast Orally Once a day; Duration: 30 days OARRS REVIEWED, OK TO FILL 03/10/2025 Active Deblitane 0.35 MG TAKE 1 TABLET BY MOUTH DAILY Oral; Duration: 28 Days Active Social History Sex Assigned At : Social History Observation Description Sex Assigned At Female Vital Signs Temperature 99.5 degrees Fahrenheit 03/10/20 25 Weight 256 lbs 03/10/2025 Height 63 in 03/10/2025 BMI 45.34 kg/m2 03/10/2025 Blood pressure systolic 119 mm Hg 03/10/20 25 Blood pressure diastolic 82 mm Hg 025 Heart Rate 85 /min 03/10/2025 Respiratory Rate 18 /min 03/10/2025 Weight-kg 116.12 kg 03/10/2025 Height-cm 160.02 cm 03/10/2025 Marek Cage 025 11:22:39 AM EDT > Encounters Encounter Location Date Provider Diagnosis Main [address] [place] , [place] [id number] 03/10/2025 Jamila Rubio Severe obesity (BMI >= 40) E66.01 and BMI 45.0-49.9, adult Z68.42 Assessments Encounter Date Diagnosis (ICD Code) Assessment Notes Treatment Notes Treatment Clinical Notes Section Notes 03/10/2025 Severe obesity (BMI >= 40) (ICD-10 - E66.01) RX sent for Phentermine 37.5mg 1AM at this time. Continue w/ healthy diet and exercise. Pt denies any concerns. F/U 1 month or PRN 03/10/2025 BMI 45.0-49.9, adult (ICD-10 - Z68.42) Plan Of Treatment Medication Medication Name Sig Start Date Stop Date Notes Phentermine HCl 37.5 MG 1 tablet before breakfast Orally Once a day; Duration: 30 days 03/10/2025 OARRS REVIEWED, OK T O FILL Phentermine HCl 30 MG 1 capsule Orally Once a day 02/10/2025 Starting w/ Phentermine 15mg once daily for 1 week, then switch to 30mg once daily thereafter for 1 month total (30 days Treatment Notes Assessment Notes Severe obesity (BMI >= 40) RX sent for Phentermine 37.5mg 1AM at this time. Continue w/ healthy diet and exercise. Pt denies any concerns. F/U 1 month or PRN Next Appt Details Follow Up: 1 month Weight Wan mesha, Reason: Provider Name:Jamila Rubio , 04/11/2025 11:15:00 AM, [address] [place] [address], [phone], Provider Name:Megan Wood , 04/11/2025 12:45:00 PM, [address] [place] [address], [phone], Provider Name:Megan Wood , 04/18/2025 03:00:00 PM, [address] [place] [address], [phone], Provider Name:Rachael Lopez , 07/12/2025 08:45:00 AM, [address] [place] [address], [phone], Progress Notes * Juliette CARLSON MDOB:[birth year] (24 yo F)Acc No.[id number]:03/10/2025 Medical Note Patient: Juliette MONTENEGRO Provider: Alexandria Rubio DOB:2000 A ge:24 Y S ex:Female Date:03/10/2025 Address:[address] [place] [address], [phone] Check In:11:14 AM EST Subjective: * Chief Complaints: * 1 month Weight Loss * HPI: I nterim History: WEIGHT MANAGEMENT Last visit 02/10/25 Weight Trends: 02/10/25 - 266 lbs, 47.11 BMI 03/10/25 - 256 lbs, 45.34 BMI Diet: Pt reports she has increased her water intake at this time, pt reports she hardly eats out now at this time, had cut out on her carbs Exercise: Pt reports she started walking with her sister and using some work out equipment at home Pt reports having some headaches, but also that her period has been lasting more than usual d/t starting a new control. * ROS: N egative except mentioned above in the HPI. * Medical History: * Surgical History: D enies Past Surgical History * Hospitalization/Major Diagno stic Procedure: D enies Past Hospitalization * Family History: F ather: alive, diagnosed with Hypertension, Diabetes, High Cholesterol. M other: unknown.?Paternal Grand Father: alive, diagnosed with Hypertension, Diabetes. P aternal Grand Mother: alive, diagnosed with Diabetes. B rother: alive. 1 brother(s) . . * Medications: T akingDeblitane 0.35 MG Tablet TAKE 1 TABLET BY MOUTH DAILY Oral Phentermine HCl 30 MG Capsule 1 capsule Orally Once a day , Notes to Pharmacist: Starting w/ Phentermine 15mg once daily for 1 week, then switch to 30mg once daily thereafter for 1 month total (30 daysTaking Deblitane 0.35 MG Tablet TAKE 1 TABLET BY MOUTH DAILY Oral Taking Phentermine HCl 30 MG Capsule 1 capsule Orally Once a day , Notes to Pharmacist: Starting w/ Phentermine 15mg once daily for 1 week, then switch to 30mg once daily thereafter for 1 month total (30 daysDiscontinuedPhentermine HCl 15 MG Capsule 1 capsule Orally Once a day for 7 days , Notes to Pharmacist: Starting w/ Phentermine 15mg once daily for 1 week, then switch to 30mg once daily thereafter for 1 month totalMedication List reviewed and reconciled with the patientDiscontinued Phentermine HCl 15 MG Capsule 1 capsule Orally Once a day for 7 days , Notes to Pharmacist: Starting w/ Phentermine 15mg once daily for 1 week, then switch to 30mg once daily thereafter for 1 month totalMedication List reviewed and reconciled with the patient * Allergies: N .K.D.A.no[Allergies Verified] Objective: * Vitals: T emp:99.5F, Wt:256lbs, Ht: 63 in, BMI:45.34Index, BP:119/82mm Hg, HR:85/min, RR:18/min, Pain scale:01-10, Wt-k.12 kg, Ht-cm: 160.02 cm, Body Surface Area: 2.27. Marek Cage 03/10/2025 11:22:39 AM EDT >. * Examination: C QM Exceptions: Currently taking Aspirin: A spirin Use: N o G eneral Examination: General appearance: a lert, pleasant, well-nourished and in no acute distress. Head: n ormocephalic, atraumatic. Heart: r egular rate and rhythm without murmurs, gallops, clicks or rubs. Lungs: c lear to auscultation bilaterally, with good air movement and no rales, rhonchi or wheezes. Psych: a lert and oriented x 3 , cooperative with exam,?normal affect / mood , speech is clear and coherent. Assessment: * Assessment: 1. S evere obesity (BMI >= 40) - E66.01 (Primary) 2 . B SD 45.0-49.9, adult - Z68.42 Plan: * Treatment: * Procedure Codes: 3 079F HTN DIAST BP = 80-143105A HTN SYST BP < 130 * Preventive Medicine: Counseling: C ommunication to patient: Counseling for nutrition provided Y es Counseling for physical activity provided Y es * Follow Up: 1 month Weight Management * Billing Information: * Visit Code: 71769 Office Visit Est 20-29 minutes. * Procedure Codes: 3079F HTN DIAST BP = 80-89. 3074F HTN SYST BP < 130. * Sign off status: Completed true * Provider: Alexandria Rubio Date: 0 03/10/2025 Generated for Peyman topete/Alberta/Tejinder on: 0 03/16/2025 08:51 AM EDT History and Physical Notes * Examination Category Sub-Category Detail Notes Category Not es General Examination General appearance: alert, p leasant, well-nourished and in no acute distress Head: normocephalic, atrau matic Heart: regular rate and rhy thm without murmurs, gallops, clicks or rubs Lungs: clear to auscultatio n bilaterally, with good air movement and no rales, rhonchi or wheezes Psych: alert and oriented x 3 , cooperative with exam, normal affect / mood , speech is clear and coherent CQM Exceptions Currently taking Aspirin: Aspirin Use:: No
--- OUTSIDE RECORDS SUMMARY | 2025-03-16 09:00 | XMS_ITS | Encounter Summary ---
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 Name Role Phone Unavailable Primary Care Provider Unavailabl e Reason for Visit * Reason Comments Well Women Visit Encounter Details Date Type Department Care Team (Latest Contact Info) Description 03/16/2025 9:00 AM EDT Procedure Visit [facility] [address] [place] [address] Mehnaz Park, IAN [address] [address] control counseling (Primary Dx); Well woman exam with routine gynecological exam Social History Tobacco Use Types Packs/Day Years Used Date Smoking Tobacco: Never PHQ-2 Answer Date Recorded Patient Health Questionnaire-2 Score 0 01/05/2024 Comments Unknown Sex and Gender Information Value Date Recorded Sex Assigned at Not on file Legal Sex Female 11:47 PM EDT Gender Identity Female 06/13/2023 8:37 AM EST Sexual Orientation Not on file documented as of this encounter Last Filed Vital Signs Vital Sign Reading Time Taken Comments Blood Pressure 130/80 03/16/2025 9:05 AM EDT Pulse - - Temperature - - Respiratory Rate - - Oxygen Saturation - - Inhaled Oxygen Concentration - - Weight 116 kg (255 lb 1.9 oz) 03/16/2025 9:05 AM EDT Height - - Body Mass Index 48.2 02/16/2024 11:19 AM EDT documented in this encounter Progress Notes * Mehnaz Park, CLOTH WORKER - 03/16/2025 9:00 AM EDT Reason for Appointment: Patient ID: Juliette Carlson is a 24 y.o. female who presents for Well Women Visit Patient presents today for Annual Exam. MEDICATIONS Current Outpatient Medications Medication Instructions levonorgestrel-ethinyl estradiol (Jolessa) 0.15-0.03 MG tablet 1 tablet, Oral, Daily, Take 1 tabletby mouth daily ALLERGIES No Known Allergies PROBLEMS Active Ambulatory Problems Diagnosis Date Noted No Active Ambulatory Problems Resolved Ambulatory Problems Diagnosis Date Noted No Resolved Ambulatory Problems Past Medical History: Diagnosis Date follow-up ([facility]) HISTORY PAST MEDICAL HISTORY SOCIAL HISTORY Past Medical History: Diagnosis Date follow-up ([facility]) Social History Tobacco Use Smoking status: Never Smokeless tobacco: Not on file Substance Use Topics Alcohol use: Not on file Drug use: Never FAMILY HISTORY Family History Problem Relation Name Age of Onset Diabetes Father Other (high blood pressure) Father SURGICAL HISTORY History reviewed. No pertinent surgical history. REVIEW OF SYSTEMS Review of Systems: Review of Systems Constitutional: Negative. HENT: Negative. Eyes: Negative. Respiratory: Negative. Cardiovascular: Negative. Gastrointestinal: Negative. Genitourinary: Positive for menstrual problem and vaginal bleeding. Heavy bleeding after 1 month of Jolessa Musculoskeletal: Negative. Skin: Negative. Neurological: Negative. All other systems reviewed and are negative. Hematological: Negative. Endocrine: Negative. Allergic/Immunologic: Negative. OBJECTIVE Objective: Physical Exam Constitutional: Appearance: Normal appearance. She is well-developed. Genitourinary: Vulva normal. Breasts: Breasts are soft. Right: Normal. Left: Normal. Cardiovascular: Rate and Rhythm: Normal rate and regular rhythm. Pulmonary: Effort: Pulmonary effort is normal. Breath sounds: Normal breath sounds. Abdominal: General: Bowel sounds are normal. There is no distension. Palpations: Abdomen is soft. Tenderness: There is no abdominal tenderness. There is no guarding or rebound. Musculoskeletal: General: No swelling. Normal range of motion. Right lower leg: No edema. Left lower leg: No edema. Neurological: Mental Status: She is alert and oriented to person, place, and time. Skin: General: Skin is warm and dry. Psychiatric: Mood and Affect: Mood normal. Behavior: Behavior normal. Vitals and nursing note reviewed. Exam conducted with a rotary dryer operator present. Vitals: Estimated body mass index is 48.2 kg/m?? as calculated from the following: Height as of 02/16/24: 5' 1 . Weight as of this encounter: 255 lb 1.9 oz. BP: 130/80 Patient's last menstrual period was 02/14/2025. ASSESSMENT & PLAN ICD-10-CM 1. Well woman exam with routine gynecological exam Z01.419 Pap Smear Annual Exam: Patient presents today for an annual exam. Patient states she is doing well and has no complaints. Pap was obtained without difficulty. No orders of the defined types were placed in this encounter. Follow Up: Patient is to return in one year for annual unless needed otherwise. Discontinued Jolessa and will trial LoLoestrin and if continues with heavy bleeding will discuss Depo Provera and possibly discusstubal ligation. Documented by Mehnaz Park NP on behalf of: Mehnaz Park NP documented in this encounter Plan of Treatment Scheduled Orders Name Type Priority Associated Diagnoses Orde r Schedule Pap Smear Pathology and Cytology Routine Well woman exam with routine gynecological exam Ordered: 03/16/2025 documented as of this encounter Goals Goal Patient Goal Type Associated Problems Recent Progress Patient-Stated? Author Reminders Care Plan OB Reminders No Open Scheduling, Background documented as of this encounter Visit Diagnoses Diagnosis control counseling- Primary Well woman exam with routine gynecological exam Routine gynecological examination documented in this encounter Additional Health Concerns Active Problems Noted Date Diagnosed Date OB Reminders 07/23/2023 documented as of this encounter
--- OUTSIDE RECORDS SUMMARY | 2025-03-16 14:53 | XMS_ITS | Encounter Summary ---
Author Organization [facility] Address [address] [place] [address] Care Team Providers Care Production Assembler Name Role Phone Unavailable Primary Care Provider Unavailabl e Encounter Details Date Type Department Care Team (Late st Contact Info) Description 12/10/2023 Clinisync Result Encounter [facility] External Department Unsolicited Lea Cole, DO [address] [facility] [facility] [address] [place] [address] Social History Tobacco Use Types Packs/Day Years Used Date Smoking Tobacco: Never Comments Yes Sex and Gender Information Value Date Recorded Sex Assigned at Not on file Legal Sex Female 11:47 PM EDT Gender Identity Female 06/13/2023 8:37 AM EST Sexual Orientation Not on file documented as of this encounter Plan of Treatment Not on file documented as of this encounter Goals Goal Patient Goal Type Associated Problems Recent Progress Patient-Stated? Author Reminders Care Plan OB Reminders No Open Scheduling, Background documented as of this encounter Procedures Procedure Name Priority Date/Time Associated Diagnosis Comments US OB BPP W NON-STRESS 12/10/2023 11:54 AM EDT documented in this encounter Results * US OB BPP W NON-STRESS (12/10/2023 11:54 AM EDT) Anatomical Region Laterality Modality Other 12/10/2023 11:5 4 AM EDT Narrative 12/10/2023 11:57 [place] [address] Ultrasound Report Signed Patient: JULIANA CARLSON MR#: [id number] : 2000 Acct:[id number] Age/Sex: 23 / F ADM Date: 12/10/23 Loc: [facility] 250-[address]: Lea Cole D.O. Ordering Physician: Lea Cole D.O. Date of Service: 12/10/23 Procedure(s): US OB BPP w non-stress Accession Number(s): [id number] cc: Lea Cole D.O.; Rojas Keenan NP The [place] [id number] Patient Name: JULIANA CARLSON MRN: [id number] date: 2000 Sex: F Assigned Patient Location: Current Patient Location: [facility] Accession/Order Number: [id number] Exam Date: 12/10/2023 10:55 Report Date: 12/10/2023 11:54 At the request of: LEA COLE Procedure: US OB BPP w non-stress EXAMINATION: US OB BPP w non-stress HISTORY: Excessive growth COMPARISON: No relevant comparison available. TECHNIQUE: Ultrasound biophysical profile was performed in the radiology department. non-reactive stress testing was performed by nursing staff in the birthing center. FINDINGS: BREATHING MOVEMENTS: 2.0 GROSS BODY MOVEMENTS: 2.0 TONE: 2.0 QUALITATIVE AMNIOTIC FLUID VOLUME: 2.0 PRESENTATION: CEPHALIC HEART RATE: 142.1 bpm H.B./min AMNIOTIC FLUID VOLUME: 13.4 cm cm GESTATIONAL AGE: 36 weeks 2 days CONCLUSION: Total biophysical profile score: 8.0 Electronically authenticated by: BETTYE MICHELLE Date: 12/10/2023 11:54 Dictated By: Bettye Michelle M.D. Signed By: 12/10/23 1157 DD/ 1154 TD/TT: Grinding Wheel Facer: Procedure Note Radiology, Radiologist, - 12/10/2023 [place] [address] Ultrasound Report Signed Patient: JULIANA CARLSON MMR#: [id number] : 2000Acct:[id number] Age/Sex: 23 / FADM Date: 12/10/23 Loc: [facility] 250-[address]: Lea Cole D.O. Ordering Physician: Lea Cole D.O. Date of Service: 12/10/23 Procedure(s): US OB BPP w non-stress Accession Number(s): [id number] cc: Lea Cole D.O.; Rojas Keenan NP [place] [address] Patient Name: JULIANA CARLSON MRN: [id number] date: 2000 Sex: F Assigned Patient Location: US Current Patient Location: [facility] Accession/Order Number: [id number] Exam Date: 12/10/2023 10:55 Report Date: 12/10/2023 11:54 At the request of: LEA COLE Procedure: US OB BPP w non-stress EXAMINATION: US OB BPP w non-stress HISTORY: Excessive growth COMPARISON: No relevant comparison available. TECHNIQUE: Ultrasound biophysical profile was performed in the radiology department. non-reactive stress testing was performed by nursingstaff in the birthing center. FINDINGS: BREATHING MOVEMENTS: 2.0 GROSS BODY MOVEMENTS: 2.0 TONE: 2.0 QUALITATIVE AMNIOTIC FLUID VOLUME: 2.0 PRESENTATION: CEPHALIC HEART RATE: 142.1 bpm H.B./min AMNIOTIC FLUID VOLUME: 13.4 cm cm GESTATIONAL AGE: 36 weeks 2 days CONCLUSION: Total biophysical profile score: 8.0 Electronically authenticated by: BETTYE MICHELLE Date: 12/10/2023 11:54 Dictated By: Bettye Michelle M.D. Signed By:12/10/23 1157 DD/ 1154 TD/TT: Grinding Wheel Facer: Lea Cole DO [facility] Final Result documented in this encounter Visit Diagnoses Not on filedocumented in this encounter Additional Health Concerns Active Problems Noted Date Diagnosed Date OB Reminders 07/23/2023 documented as of this encounter
--- OUTSIDE RECORDS SUMMARY | 2025-03-16 14:53 | XMS_ITS | Encounter Summary ---
Author Organization [facility] Address [address] [place] [address] Care Team Providers Care Contract Negotiator Name Role Phone Unavailable Primary Care Provider Unavailabl e Encounter Details Date Type Department Care Team (Late st Contact Info) Description 08/15/2023 Clinisync Result Encounter [facility] External Department Unsolicited Lea Cole, DO [address] [facility] [address] [place] [address] Social History Tobacco Use Types Packs/Day Years [...] Priority Date/Time Associated Diagnosis Comments US OB CERVICAL LENGTH 08/15/2023 12:52 PM EST documented in this encounter Results * US OB CERVICAL LENGTH (08/15/2023 12:52 PM EST) Anatomical Region Laterality Modality Other 08/15/2023 12:5 2 PM EST Narrative 08/15/2023 12:54 PM EST The [address] [address] Ultrasound Report Signed Patient: JULIANA CARLSON MR#: [id number] : 2000 Acct:[id number] Age/Sex: 23 / F ADM Date: 08/15/23 Loc: US Attending Dr: Lea Cole D.O. Ordering Physician: Lea Cole D.O. Date of Service: 08/15/23 Procedure(s): US OB cervical length Accession Number(s): [id number] cc: Lea Cole D.O.; ALYCIA BRUSH M.D. [place] [id number] Patient Name: JULIANA CARLSON MRN: [id number] date: 2000 Sex: F Assigned Patient Location: US Current Patient Location: US Accession/Order Number: [id number] Exam Date: 08/15/2023 11:00 Report Date: 08/15/2023 12:52 At the request of: LEA COLE Procedure: US OB cervical length EXAMINATION: US OB anatomy, US OB cervical length HISTORY: screening, , for anatomic survey Z36.89 COMPARISON: No relevant comparison available. TECHNIQUE: Transabdominal sonographic examination was performed for obstetrical and evaluation. FINDINGS: Number: 1 Heart Rate: 135.7 bpm H.B. /min Amniotic Fluid Volume: Subjectively normal Placental Location: POSTERIOR with lower margin 1.8 cm from os Cervix Length: 6.1 cm, closed. ANATOMY: Normal Structures -cerebellum, choroid plexus, cisterna magna, lateral cerebral ventricles, orbits, midline falx, four-chamber heart, stomach, kidneys, bladder, umbilical cord insertion into abdomen, three-vessel cord, cervical spine, thoracic spine, lumbar spine, sacral spine, right upper extremity, left upper extremity, right lower extremity, left lower extremity. SUBOPTIMALLY SEEN: Cardiac outflow tracts. 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 BIOMETRY: BPD: 4.2 cm 18 weeks 4 days HC: 15.9 cm 18 weeks 5 days AC: 13.7 cm 19 weeks 1 days FL: 3.1 cm 19 weeks 5 days EFW:285.8 grams; 31% FL/AC: 23.0 FL/BPD: 75.3 HC/AC: 1.2 GESTATIONAL AGE: Age by EDC: 19 weeks 4 days GILBERTO by EDC: 01/05/2024 Age by current US: 19 weeks 0 days GILBERTO by current US: 01/09/2024 US/US OB cervical length IMPRESSION: 1. Single live intrauterine with growth detailed above. 2. Hard palate is not well seen but there is question of a defect within the anterior palate versus artifact. Follow-up evaluation is recommended. Electronically authenticated by: COLLETTE BABCOCK Date: 08/15/2023 12:52 Dictated By: Collette Babcock M.D. Signed By: 08/15/23 1254 DD/ 1252 TD/TT: Management Information Systems Director: Procedure Note Radiology, Radiologist, - 08/15/2023 [place] [address] Ultrasound Report Signed Patient: JULIANA CARLSON MMR#: [id number] : 2000Acct:[id number] Age/Sex: 23 / FADM Date: 08/15/23 Loc: US Attending Dr: Lea Cole D.O. Ordering Physician: Lea Cole D.O. Date of Service: 08/15/23 Procedure(s): US OB cervical length Accession Number(s): [id number] cc: Lea Cole D.O.; ALYCIA BRUSH M.D. The [place] [address] Patient Name: JULIANA CARLSON MRN: [id number] date: 2000 Sex: F Assigned Patient Location: US Current Patient Location: US Accession/Order Number: [id number] Exam Date: 08/15/2023 11:00 Report Date: 08/15/2023 12:52 At the request of: LEA COLE Procedure: US OB cervical length EXAMINATION: US OB anatomy, US OB cervical length HISTORY: screening, , for anatomic survey Z36.89 COMPARISON: No relevant comparison available. TECHNIQUE: Transabdominal sonographic examination was performed for obstetrical and evaluation. FINDINGS: Number: 1 Heart Rate: 135.7 bpm H.B. /min Amniotic Fluid Volume: Subjectively normal Placental Location: POSTERIOR with lower margin 1.8 cm from os Cervix Length: 6.1 cm, closed. ANATOMY: Normal Structures -cerebellum, choroid plexus, cisterna magna, lateral cerebral ventricles, orbits, midline falx, four-chamber heart, stomach, kidneys, bladder, umbilical cord insertion into abdomen, three-vesselcord, cervical spine, thoracic spine, lumbar spine, sacral spine, right upper extremity, left upper extremity, right lower extremity, left lowerextremity. SUBOPTIMALLY SEEN: Cardiac outflow tracts. 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 BIOMETRY: BPD: 4.2 cm 18 weeks 4 days HC: 15.9 cm 18 weeks 5 days AC: 13.7 cm 19 weeks 1 days FL: 3.1 cm 19 weeks 5 days EFW:285.8 grams; 31% FL/AC: 23.0 FL/BPD: 75.3 HC/AC: 1.2 GESTATIONAL AGE: Age by EDC: 19 weeks 4 days GILBERTO by EDC: 01/05/2024 Age by current US: 19 weeks 0 days GILBERTO by current US: 01/09/2024 US/US OB cervical length IMPRESSION: 1. Single live intrauterine with growth detailed above. 2. Hard palate is not well seen but there is question of a defect withinthe anterior palate versus artifact. Follow-up evaluation is recommended. Electronically authenticated by: COLLETTE BABCOCK Date: 08/15/2023 12:52 Dictated By: Collette Babcock M.D. Signed By:08/15/23 1254 DD/ 1252 TD/TT: Management Information Systems Director: us Lea Kelsey DO [facility] Final Result documented in this encounter Visit Diagnoses Not on filedocumented in this encounter Additional Health Concerns Active Problems Noted Date Diagnosed Date OB Reminders 07/23/2023 documented as of this encounter
--- OUTSIDE RECORDS SUMMARY | 2025-03-16 14:53 | XMS_ITS | Encounter Summary ---
Author Organization [facility] Address [address] [place] [address] Care Team Providers Care Cardiovascular Physician Assistant Name Role Phone Unavailable Primary Care Provider Unavailabl e Encounter Details Date Type Department Care Team (Late st Contact Info) Description 11/19/2023 Clinisync Result Encounter [facility] External Department Unsolicited Lea Cole, DO [address] [facility] [place] [address] Social History Tobacco Use Types Packs/Day Years [...] Diagnosis Comments US OB BPP W NON-STRESS 11/19/2023 9:37 AM EDT documented in this encounter Results * US OB BPP W NON-STRESS (11/19/2023 9:37 AM EDT) Anatomical Region Laterality Modality Other 11/19/2023 9:37 AM EDT Narrative 11/19/2023 9:40 [place] [address] Ultrasound Report Signed Patient: JULIANA CARLSON MR#: [id number] : 2000 Acct:[id number] Age/Sex: 23 / F ADM Date: 11/19/23 Loc: [facility] 250-[address]: Lea Cole D.O. Ordering Physician: Lea Cole D.O. Date of Service: 11/19/23 Procedure(s): US OB BPP w non-stress Accession Number(s): [id number] cc: Lea Cole D.O.; ALYCIA BRUSH M.D. The [place] [id number] Patient Name: JULIANA CARLSON MRN: [id number] date: 2000 Sex: F Assigned Patient Location: [facility] Current Patient Location: [facility] Accession/Order Number: [id number] Exam Date: 11/19/2023 09:05 Report Date: 11/19/2023 09:37 At the request of: LEA COLE Procedure: US OB BPP w non-stress EXAMINATION: US OB BPP w non-stress HISTORY: Excessive growth O36.63X0 COMPARISON: No relevant comparison available. TECHNIQUE: Ultrasound biophysical profile was performed in the radiology department. FINDINGS: BREATHING MOVEMENTS: 2 GROSS BODY MOVEMENTS: 2 TONE: 2 QUALITATIVE AMNIOTIC FLUID VOLUME: 2 PRESENTATION: CEPHALIC HEART RATE: 150.0 bpm H.B./min AMNIOTIC FLUID VOLUME: 11.4 cm cm GESTATIONAL AGE: 33 weeks 2 days CONCLUSION: Total biophysical profile score: 8/8 Electronically authenticated by: BETTYE MICHELLE Date: 11/19/2023 09:37 Dictated By: Bettye Michelle M.D. Signed By: 11/19/23939 DD/ 6 TD/TT: Extrusion Process Operator: Procedure Note Radiology, Radiologist, - 11/19/2023 The [place] [id number] Ultrasound Report Signed Patient: JULIANA CARLSON MMR#: [id number] : 2000Acct:[id number] Age/Sex: 23 / FADM Date: 11/19/23 Loc: [facility] 250-[address]: Lea Cole D.O. Ordering Physician: Lea Cole D.O. Date of Service: 11/19/23 Procedure(s): US OB BPP w non-stress Accession Number(s): [id number] cc: Lea Cole D.O.; ALYCIA BRUSH M.D. [place] [address] Patient Name: JULIAAN CARLSON MRN: [facility]:[id number] date: 2000 Sex: F Assigned Patient Location: [facility] Current Patient Location: [facility] Accession/Order Number: [id number] Exam Date: 11/19/2023 09:05 Report Date: 11/19/2023 09:37 At the request of: LEA COLE Procedure: US OB BPP w non-stress EXAMINATION: US OB BPP w non-stress HISTORY: Excessive growth O36.63X0 COMPARISON: No relevant comparison available. TECHNIQUE: Ultrasound biophysical profile was performed in the radiology department. FINDINGS: BREATHING MOVEMENTS: 2 GROSS BODY MOVEMENTS: 2 TONE: 2 QUALITATIVE AMNIOTIC FLUID VOLUME: 2 PRESENTATION: CEPHALIC HEART RATE: 150.0 bpm H.B./min AMNIOTIC FLUID VOLUME: 11.4 cm cm GESTATIONAL AGE: 33 weeks 2 days CONCLUSION: Total biophysical profile score: 8/8 Electronically authenticated by: BETTYE MICHELLE Date: 11/19/2023 09:37 Dictated By: Bettye Michelle M.D. Signed By:11/19/23 0940 DD/ TD/TT: Extrusion Process Operator: Lea Cole DO [facility] Final Result documented in this encounter Visit Diagnoses Not on filedocumented in this encounter Additional Health Concerns Active Problems Noted Date Diagnosed Date OB Reminders 07/23/2023 documented as of this encounter
--- OUTSIDE RECORDS SUMMARY | 2025-03-16 14:53 | XMS_ITS | Encounter Summary ---
Author Organization [facility] Address [address] [place] [address] Care Team Providers Care Mechanical Engineering Technologist Name Role Phone Unavailable Primary Care Provider Unavailabl e Encounter Details Date Type Department Care Team (Late st Contact Info) Description 12/24/2023 Clinisync Result Encounter [facility] External Department Unsolicited Lea Cole, DO [address] [facility] [place] [address] Social History Tobacco Use Types Packs/Day Years [...] Diagnosis Comments US OB BPP W NON-STRESS 12/24/2023 11:38 AM EDT documented in this encounter Results * US OB BPP W NON-STRESS (12/24/2023 11:38 AM EDT) Anatomical Region Laterality Modality Other 12/24/2023 11:3 8 AM EDT Narrative 12/24/2023 11:41 [place] [address] Ultrasound Report Signed Patient: JULIANA CARLSON MR#: [id number] : 2000 Acct:[id number] Age/Sex: 23 / F ADM Date: 12/24/23 Loc: [facility] 250-[address]: Lea Cole D.O. Ordering Physician: Lea Cole D.O. Date of Service: 12/24/23 Procedure(s): US OB BPP w non-stress Accession Number(s): [id number] cc: Lea Cole D.O.; Rojas Keenan NP The [place] [phone] Patient Name: JULIANA CARLSON MRN: [id number] date: 2000 Sex: F Assigned Patient Location: [facility] Current Patient Location: [facility] Accession/Order Number: [id number] Exam Date: 12/24/2023 11:11 Report Date: 12/24/2023 11:38 At the request of: LEA COLE Procedure: [...] FLUID VOLUME: 2.0 PRESENTATION: CEPHALIC HEART RATE: 163.6 bpm H.B./min AMNIOTIC FLUID VOLUME: 11.5 cm cm GESTATIONAL AGE: 38 weeks 2 days CONCLUSION: Total biophysical profile score: 8.0 Electronically authenticated by: BETTYE MICHELLE Date: 12/24/2023 11:38 Dictated By: Bettye Michelle M.D. Signed By: 12/24/23 1141 DD/ 1138 TD/TT: County Administrator: Procedure Note Radiology, Radiologist, - 12/24/2023 The [place] [id number] Ultrasound Report Signed Patient: JULIANA CARLSON MMR#: [id number] : 2000Acct:[id number] Age/Sex: 23 / FADM Date: 12/24/23 Loc: [facility] 250-[address]: Lea Cole D.O. Ordering Physician: Lea Cole D.O. Date of Service: 12/24/23 Procedure(s): US OB BPP w non-stress Accession Number(s): [id number] cc: Lea Cole D.O.; Rojas Keenan NP [facility] [address] [place] [address] Patient Name: JULIANA CARLSON MRN: [facility]:[id number] date: 2000 Sex: F Assigned Patient Location: [facility] Current Patient Location: [facility] Accession/Order Number: [id number] Exam Date: 12/24/2023 11:11 Report Date: 12/24/2023 11:38 At the request of: LEA COLE Procedure: [...] FLUID VOLUME: 2.0 PRESENTATION: CEPHALIC HEART RATE: 163.6 bpm H.B./min AMNIOTIC FLUID VOLUME: 11.5 cm cm GESTATIONAL AGE: 38 weeks 2 days CONCLUSION: Total biophysical profile score: 8.0 Electronically authenticated by: BETTYE MICHELLE Date: 12/24/2023 11:38 Dictated By: Bettye Michelle M.D. Signed By:12/24/23 1141 DD/ 1138 TD/TT: County Administrator: us Lea Cole DO [facility] Final Result documented in this encounter Visit Diagnoses Not on filedocumented in this encounter Additional Health Concerns Active Problems Noted Date Diagnosed Date OB Reminders 07/23/2023 documented as of this encounter
--- OUTSIDE RECORDS SUMMARY | 2025-03-16 14:53 | XMS_ITS | Encounter Summary ---
Author Organization [facility] Address [address] [place] [address] Care Team Providers Care Machine Setter Name Role Phone Unavailable Primary Care Provider Unavailabl e Encounter Details Date Type Department Care Team (Late st Contact Info) Description 12/25/2023 Abstract [facility] [address] [place] [address] [place] [id number] Peri Cordero LPN Social History Tobacco Use Types Packs/Day Years [...] documented as of this encounter Visit Diagnoses Not on filedocumented in this encounter Additional Health Concerns Active Problems Noted Date Diagnosed Date OB Reminders 07/23/2023 documented as of this encounter
--- OUTSIDE RECORDS SUMMARY | 2025-03-16 14:53 | XMS_ITS | Encounter Summary ---
Author Organization [facility] Address [address] [place] [address] Care Team Providers Care Employee Communications Coordinator Name Role Phone Unavailable Primary Care Provider Unavailabl e Encounter Details Date Type Department Care Team (Late st Contact Info) Description 06/20/2023 Clinisync Result Encounter [facility] External Department Unsolicited Lea Cole, DO [address] [place] [address] Social History Tobacco Use Types Packs/Day Years Used Date Smoking Tobacco: Never Assessed Comments Yes Sex and Gender Information Value Date Recorded Sex Assigned at Not on file Legal Sex Female 11:47 PM EDT Gender Identity Female 06/13/2023 8:37 AM EST Sexual Orientation Not on file documented as of this encounter Plan of Treatment Not on file documented as of this encounter Procedures Procedure Name Priority Date/Time Associated Diagnosis Comments US OB TRANSVAGINAL 06/20/2023 12 :14 PM EST TBH BOX TEST SENT OUT Routine 06/20/2023 12:03 PM EST HBSAG SCREEN Routine 06/20/2023 12:03 PM EST RAPID PLASMA REAGIN, QUANT Routine 06/20/2023 12:03 PM EST HIV AB/P24 AG WITH REFLEX Routine 06/20/2023 12:03 PM EST HCV ANTIBODY RFX TO QUANT PCR Routine 06/20/2023 12:03 PM EST MLR HEMOGLOBIN A1C Routine 06/20/2023 12 :03 PM EST ALL THYROID STIM HORMONE Routine 06/20/2023 12:03 PM EST ALL RUBELLA IGG AB Routine 06/20/2023 12 :03 PM EST ALL CBC WITH AUTO DIFF Routine 06/20/2023 12:03 PM EST documented in this encounter Results * US OB TRANSVAGINAL (06/20/2023 12:14 PM EST) Anatomical Region Laterality Modality Other 06/20/2023 12:1 4 PM EST Narrative 06/20/2023 12:17 [place] [address] Ultrasound Report Signed Patient: JULIANA CARLSON MR#: [id number] : 2000 Acct:[id number] Age/Sex: 23 / F ADM Date: 06/20/23 Loc: US Attending Dr: Lea Cole D.O. Ordering Physician: Lea Cole D.O. Date of Service: 06/20/23 Procedure(s): US OB transvaginal Accession Number(s): [id number] cc: Lea Cole D.O.; ALYCIA BRUSH M.D. [place] [address] Patient Name: JULIANA CARLSON MRN: [id number] date: 2000 Sex: F Assigned Patient Location: US Current Patient Location: LAB Accession/Order Number: [id number] Exam Date: 06/20/2023 10:41 Report Date: 06/20/2023 12:14 At the request of: LEA COLE Procedure: US OB transvaginal EXAMINATION: US OB transvaginal HISTORY: MISSED MENSES COMPARISON: No relevant comparison available. FINDINGS: Cotto intrauterine gestation Gestational sac: 5.0 cm, 10 weeks 5 days CRL: 4.77 cm, 11 weeks 4 days Yolk sac: 5.8 mm Heart rate: 100 Cervix: Closed, 5.2 cm The uterus is normal, anteverted, anteflexed The ovaries are normal Clinical age: 9 weeks 4 days Clinical GILBERTO: 01/19/2024 Ultrasound age: 11 weeks 4 days Ultrasound GILBERTO: 01/05/2024 US/US OB transvaginal IMPRESSION: Viable cotto intrauterine gestation measuring 11 weeks 4 days Electronically authenticated by: BETTYE MICHELLE Date: 06/20/2023 12:14 Dictated By: Bettye Michelle M.D. Signed By: 06/20/231216 DD/ 13 TD/TT: Associate Project Manager: Procedure Note Radiology, Radiologist, MD - 06/20/2023 [place] [address] Ultrasound Report Signed Patient: JULIANA CARLSON MMR#: [id number] : 2000Acct:[id number] Age/Sex: M Date: 06/20/23 Loc: US Attending Dr: Lea Cole D.O. Ordering Physician: Lea Cole D.O. Date of Service: 06/20/23 Procedure(s): US OB transvaginal Accession Number(s): [id number] cc: Lea Cole D.O.; ALYCIA BRUSH M.D. [place] [address] Patient Name: JULIANA CARLSON MRN: [id number] date: 2000 Sex: F Assigned Patient Location: US Current Patient Location: LAB Accession/Order Number: [id number] Exam Date: 06/20/2023 10:41 Report Date: 06/20/2023 12:14 At the request of: LEA COLE Procedure: US OB transvaginal EXAMINATION: US OB transvaginal HISTORY: MISSED MENSES COMPARISON: No relevant comparison available. FINDINGS: Cotto intrauterine gestation Gestational sac: 5.0 cm, 10 weeks 5 days CRL: 4.77 cm, 11 weeks 4 days Yolk sac: 5.8 mm Heart rate: 100 Cervix: Closed, 5.2 cm The uterus is normal, anteverted, anteflexed The ovaries are normal Clinical age: 9 weeks 4 days Clinical GILBERTO: 01/19/2024 Ultrasound age: 11 weeks 4 days Ultrasound GILBERTO: 01/05/2024 US/US OB transvaginal IMPRESSION: Viable cotto intrauterine gestation measuring 11 weeks 4 days Electronically authenticated by: BETTYE MICHELLE Date: 06/20/2023 12:14 Dictated By: Bettye Michelle M.D. Signed By:06/20/23 1217 DD/ 1214 TD/TT: Associate Project Manager: us Lea Kelsey DO [facility] Final Result * HBSAG SCREEN (06/20/2023 12:03 PM EST) Pathologist [facility] HBSAG SCREEN Negative Negative [facility] Comment: Performed at: [address] [id number] Circulation Clerk: Darian Hernandez PhD, Phone: [phone] 06/20/2023 12:0 3 PM EST 06/20/2023 12:13 PM EST Narrative CLIN[facility] - 06/21/2023 11:11 AM EST us Lea Kelsey DO LAB BLOOD ORDERABLES Final Resul t [facility] * RAPID PLASMA REAGIN, QUANT (06/20/2023 12:03 PM EST) Pathologist [facility] RAPID PLASMA REAGIN, QUANT Non Reactive NonRea<1: 1 titer [facility] Comment: Please Note: This test does not meet current guidelines for screening and diagnosis of syphilis. This test is intended for following treatment response in patients being treated for syphilis infection. To screen for syphilis infection, a reflex cascade that includes both RPR and a treponema-specific assay should be utilized, such as Treponema pallidum (Syphilis) Screening [place] (130618) or Rapid Plasma Reagin (RPR) Test With Reflex to Quantitative RPR and Confirmatory Treponema pallidum Antibodies (064188). Performed at: [address] [id number] Circulation Clerk: Darian Hernandez PhD, Phone: [phone] 06/20/2023 12:0 3 PM EST 06/20/2023 12:13 PM EST Narrative CLINISYNC - 06/21/2023 11:11 AM EST [facility] LAB BLOOD ORDERABLES Final Resul t Performing Organization Address [facility] Co de Phone Number [facility] * HCV ANTIBODY RFX TO QUANT PCR (06/20/2023 12:03 PM EST) Pathologist [facility] HCV AB Non Reactive Non Reactive [facility] INTERPRETATION: Comment . [facility] Comment: Not infected with HCV unless early or acute infection is suspected (which may be delayed in an immunocompromised individual), or other evidence exists to indicate HCV infection. 06/20/2023 12:0 3 PM EST 06/20/2023 12:13 PM EST Narrative CLINISYNC - 06/21/2023 7:09 AM EST [facility] BLOOD ORDERABLES Final Resul t Performing Organization Address [facility] de [facility] * HIV AB/P24 AG WITH REFLEX (06/20/2023 12:03 PM EST) Pathologist [facility] HIV AB/P24 AG SCREEN Non Reactive Non Reactive [facility] Comment: HIV Negative HIV-1/HIV-2 antibodies and HIV-1 p24 antigen were NOT detected. There is no laboratory evidence of HIV infection. Performed at: [facility] [address] [id number] Circulation Clerk: Darian Hernandez PhD, Phone: [phone] 06/20/2023 12:0 3 PM EST 06/20/2023 12:13 PM EST Narrative CLIN[facility]YNC - 06/21/2023 7:09 AM EST Lea Kelsey DO LAB BLOOD ORDERABLES Final Resul t Performing Organization Address [facility]/ZIP Co de Phone Number [facility] * ALL RUBELLA IGG AB (06/20/2023 12:03 PM EST) RUBELLA ANTIBODIES, IGG 2.23 Immune >0.99 index [facility] Comment: Non-immune <0.90 Equivocal 0.90 - 0.99 Immune >0.99 Performed at: [address] [id number] Circulation Clerk: Darian Hernandez PhD, Phone: [phone] 06/20/2023 12:0 3 PM EST 06/20/2023 12:13 PM EST Narrative [facility] - 06/21/2023 7:09 AM EST us Lea Kelsey DO [facility] Final Result Performing Organization Address [facility] Co de Phone Number [facility] * ALL THYROID STIM HORMONE (06/20/2023 12:03 PM EST) THYROID STIMULATING HORMONE 0.708 0.358 - 3.740 uIU/mL TB 06/20/2023 12:0 3 PM EST 06/20/2023 12:13 PM EST Narrative [facility]IN[facility]NC - 06/20/2023 12:51 PM EST Lea Kelsey DO CL[facility] Final Result Performing Organization Address [facility] Co mi Phone Number [facility] * MLR HEMOGLOBIN A1C (06/20/2023 12:03 PM EST) GLYCOHEMOGLOBIN A1C 5.4 4.5 - 6.2 % [facility] Comment: ADA RECOMMENDED LIMIT 4.0 - 6.0 ADA THERAPEUTIC TARGET < 7.0 ACTION SUGGESTED > 7.0 ESTIMATED AVERAGE GLUCOSE 108 mg/dL TB 06/20/2023 12:0 3 PM EST 06/20/2023 12:13 PM EST Narrative CLIN[facility]YNC - 06/20/2023 12:43 PM EST us Lea Kelsey DO CL[facility] Final Result ELIAS [facility] * (ABNORMAL) ALL CBC WITH AUTO DIFF (06/20/2023 12:03 PM EST) TB WBC 9.7 4.0 - 11.0 10 3/uL TBH TBH RBC 5.12 4.20 - 5.40 10 6/uL TBH TBH HGB 12.0 12.0 - 16.0 g/dL TBH TBH HCT 38.7 36.0 - 48.0 % TBH TBH MCV 75.6(L) 81.0 - 99.0 fL TBH TBH MCH 23.4(L) 26.7 - 34.0 pg TBH TBH MCHC 31.0 29.9 - 35.2 g/dL TBH TBH RDW 15.9(H) 11.0 - 15.0 % TBH TBH PLT 365 150 - 450 10 3/uL TBH TBH MPV 10.3 9.5 - 13.5 fL TBH NEUTROPHILS PERCENT AUTO 65.1 43.0 - 75.0 % TBH LYMPHOCYTES PERCENT AUTO 26.7 20.5 - 60.0 % TBH MONOCYTES PERCENT AUTO 5.8 1.7 - 12.0 % TBH TBH EO % 1.6 0.9 - 7.0 % TBH BASOPHILS PERCENT AUTO 0.4 0.2 - 2.0 % TBH IMMATURE GRANULOCYTES PCT AUTO 0.4 0.0 - 0.5 % TBH NEUTROPHILS ABSOLUTE AUTO 6.3 1.4 - 6.5 10 3/uL TBH LYMPHOCYTES ABSOLUTE AUTO 2.6 1.2 - 3.8 10 3/uL TBH MONOCYTES ABSOLUTE AUTO 0.6 0.3 - 0.8 10 3/uL TBH TBH EO # 0.2 0.0 - 0.7 10 3/uL TBH BASOPHILS ABSOLUTE AUTO 0.0 0.0 - 0.1 10 3/uL TBH IMMATURE GRANULOCYTES ABS AUTO 0.04(H) 0.00 - 0.03 10 3/uL TBH 06/20/2023 12:0 3 PM EST 06/20/2023 12:13 PM EST Narrative CLINISYNC - 06/20/2023 12:26 PM EST us Lea Kelsey DO CLINIS[facility]NC Final Result [facility] TB * TBH BOX TEST SENT OUT (06/20/2023 12:03 PM EST) BOX TEST SENT OUT 06/20/23 [facility] 06/20/2023 12:0 3 PM EST 06/20/2023 12:13 PM EST Narrative CLINISYNC - 06/20/2023 12:22 PM EST us Lea Luao DO CLINISYNC Final Result Performing Organization Address City/[facility]/ZIP Co de Phone Number [facility] documented in this encounter Visit Diagnoses Not on filedocumented in this encounter
--- OUTSIDE RECORDS SUMMARY | 2025-03-16 14:53 | XMS_ITS | Encounter Summary ---
Author Organization [facility] Address [address] [place] [address] Care Team Providers Care Derrick Builder Name Role Phone Unavailable Primary Care Provider Unavailabl e Encounter Details Date Type Department Care Team (Late st Contact Info) Description 09/23/2023 Abstract [facility] [place] [address] [place] [phone] Kiki Blackmon LPN [address] [place] [address] Social History Tobacco Use Types Packs/Day Years [...]
--- OUTSIDE RECORDS SUMMARY | 2025-03-16 14:53 | XMS_ITS | Encounter Summary ---
Author Organization [facility] Address [address] [place] [address] Care Team Providers Care Functional Consultant Name Role Phone Unavailable Primary Care Provider Unavailabl e Encounter Details Date Type Department Care Team (Late st Contact Info) Description 12/23/2023 Abstract [facility] [address] [place] [phone] Eldon Cole DO [address] [place] [address] Social History Tobacco Use Types Packs/Day Years [...]
--- OUTSIDE RECORDS SUMMARY | 2025-03-16 14:53 | XMS_ITS | Encounter Summary ---
Author Organization [facility] Address [address] [place] [address] Care Team Providers Care Profile Saw Setup Operator Name Role Phone Unavailable Primary Care Provider Unavailabl e Encounter Details Date Type Department Care Team (Late st Contact Info) Description 12/17/2023 Clinisync Result Encounter [facility] External Department Unsolicited Lea Cole, DO [address] [place] [address] Social History Tobacco Use Types Packs/Day Years [...] Priority Date/Time Associated Diagnosis Comments US OB GROWTH 12/17/2023 2:06 PM EDT documented in this encounter Results * US OB GROWTH (12/17/2023 2:06 PM EDT) Anatomical Region Laterality Modality Other 12/17/2023 2:06 PM EDT Narrative 12/17/2023 2:09 PM EDT The [address] [address] Ultrasound Report Signed Patient: JULIANA CARLSON MR#: [id number] : 2000 Acct:[id number] Age/Sex: 23 / F ADM Date: 12/17/23 Loc: US Attending Dr: Lea Cole D.O. Ordering Physician: Lea Cole D.O. Date of Service: 12/17/23 Procedure(s): US OB growth Accession Number(s): [id number] cc: Lea Cole D.O.; Rojas Keenan NP [place] [phone] Patient Name: JULIANA CARLSON MRN: [id number] date: 2000 Sex: F Assigned Patient Location: [facility] Current Patient Location: US Accession/Order Number: [id number] Exam Date: 12/17/2023 11:10 Report Date: 12/17/2023 14:06 At the request of: LEA COLE Procedure: US OB growth EXAMINATION: US OB growth HISTORY: GESTATIONAL DIABETES MELLITUS Z13.1 COMPARISON: Ultrasound OB growth 11/20/2023 FINDINGS: Heart Rate: 163.6 bpm Number: 1.0 Position: CEPHALIC Amniotic Fluid Volume: 11.1 cm Maximum Vertical Pocket: 3.9 cm BIOMETRY: BPD: 8.8 cm cm; 35 weeks 4 days; 21% HC: 33.6 cmcm; 38 weeks 3 days ; 55% AC: 34.8 cm cm; 38 weeks 5 days; 92% FL: 7.3 cm cm; 37 weeks 3 days; 52% EFW: 3355.4 grams; 75% FL/AC: 21.0 FL/BPD: 82.9 HC/AC: 1.0 GESTATIONAL AGE: Age by EDC: 37 weeks 2 days GILBERTO by EDC: 01/05/2024 Age by US: 37 weeks 4 days GILBERTO by US: 01/03/2024 US/US OB growth IMPRESSION: 1. Single live intrauterine with growth detailed above. Electronically authenticated by: COLLETTE BABCOCK Date: 12/17/2023 14:06 Dictated By: Collette Babcock M.D. Signed By: 12/17/23 1409 DD/ 1406 TD/TT: Piece Worker: Procedure Note Radiology, Radiologist, - 12/17/2023 [place] [address] Ultrasound Report Signed Patient: JULIANA CARLSON MMR#: [id number] : 2000Acct:[id number] Age/Sex: 23 / FADM Date: 12/17/23 Loc: US Attending Dr: Lea Cole D.O. Ordering Physician: Lea Cole D.O. Date of Service: 12/17/23 Procedure(s): US OB growth Accession Number(s): [id number] cc: Lea Cole D.O.; Rojas Keenan NP The [place] [address] Patient Name: JULIANA CARLSON MRN: [facility]:[id number] date: 2000 Sex: F Assigned Patient Location: [facility] Current Patient Location: US Accession/Order Number: [id number] Exam Date: 12/17/2023 11:10 Report Date: 12/17/2023 14:06 At the request of: LEA COLE Procedure: US OB growth EXAMINATION: US OB growth HISTORY: GESTATIONAL DIABETES MELLITUS Z13.1 COMPARISON: Ultrasound OB growth 11/20/2023 FINDINGS: Heart Rate: 163.6 bpm Number: 1.0 Position: CEPHALIC Amniotic Fluid Volume: 11.1 cm Maximum Vertical Pocket: 3.9 cm BIOMETRY: BPD: 8.8 cm cm; 35 weeks 4 days; 21% HC: 33.6 cmcm; 38 weeks 3 days ; 55% AC: 34.8 cm cm; 38 weeks 5 days; 92% FL: 7.3 cm cm; 37 weeks 3 days; 52% EFW: 3355.4 grams; 75% FL/AC: 21.0 FL/BPD: 82.9 HC/AC: 1.0 GESTATIONAL AGE: Age by EDC: 37 weeks 2 days GILBERTO by EDC: 01/05/2024 Age by US: 37 weeks 4 days GILBERTO by US: 01/03/2024 US/US OB growth IMPRESSION: 1. Single live intrauterine with growth detailed above. Electronically authenticated by: COLLETTE BABCOCK Date: 12/17/2023 14:06 Dictated By: Collette Babcock M.D. Signed By:12/17/23 1409 DD/ 1406 TD/TT: Piece Worker: us Lea Kelsey DO [facility] Final Result documented in this encounter Visit Diagnoses Not on filedocumented in this encounter Additional Health Concerns Active Problems Noted Date Diagnosed Date OB Reminders 07/23/2023 documented as of this encounter
--- OUTSIDE RECORDS SUMMARY | 2025-03-16 14:53 | XMS_ITS | Clinical Summary ---
Author Organization [employer] Address [id number] [address] [place] [address] Care Team Providers Care Firesetter Name Role Phone Unavailable Primary Care Provider Unavailabl e Allergies No known active allergies Medications omeprazole (PriLOSEC OTC) 20 mg EC tablet Take 1 tablet (20 mg total) by mouth in the morning. Active PNV,calcium 72/iron,carb/fol ic ( PLUS ORAL) Take by mouth. Active Active Problems No known active problems Family History Medical History Relation Name Comments Diabetes Father Heart attack Father High Cholesterol Father Hypertension Father passed at 49yo Heart attack Maternal Grandfather Diabetes Maternal Grandmother Heart attack Maternal Grandmother Heart disease Maternal Grandmother Relation Name Status Comments Father Maternal Grandfather Maternal Grandmother Social History Tobacco Use Types Packs/Day Years Used Date Smoking Tobacco: Never Smokeless Tobacco: Never Alcohol Use Standard Drinks/Week Comments No 0 (1 standard drink = 0.6 oz pur e alcohol) Childcare Answer Date Recorded Childcare Unknown 12/23/2018 Employment Answer Date Recorded Employment Unknown 12/23/2018 Hunger Screening Answer Date Recorded Within the past 12 months we worried whether our food would run out before we got money to buy more. Never True 09/03/2023 Within the past 12 months th e food we bought just didn't last and we didn't have money to get more. Never True 09/03/2023 Purpose - Life Answer Date Recorded Purpose and direction in life Unknown Comments No Sex and Gender Information Value Date Recorded Sex Assigned at Not on file Legal Sex Female 11:57 AM EDT Gender Identity Not on file Sexual Orientation Not on file Last Filed Vital Signs Vital Sign Reading Time Taken Comments Blood Pressure 123/88 09/03/2023 10:39 AM EST Pulse 98 09/03/2023 10:39 AM EST Temperature - - Respiratory Rate 16 08/26/2017 9:45 AM EST Oxygen Saturation - - Inhaled Oxygen Concentration - - Weight 106.1 kg (234 lb) 09/03/2023 10:39 AM EST Height 160 cm (5' 3 ) 09/03/2023 10:39 AM EST Body Mass Index 41.45 09/03/2023 10:39 AM EST Plan of Treatment Health Maintenance Due Date Last Done Comments Depression Screening 2012 Pap Smear 2021 DTaP,Tdap and Td Vaccines (8 - Td or Tdap) 10/27/2023 10/26/2013, 03/30/2013, 10/16/2005, Additional history exists Adult BMI Screening 09/03/2024 09/03/2023 Tobacco Screening 09/03/2024 09/03/2023 Influenza Vaccine 03/14/2025 06/03/2013, , 05/21/2011, Additional history exists Medical Devices Not on file Insurance * Guarantor: Juliette Carlson Account Type Relation to Patient Date of Phone Billing Address Personal/Family Self 2000 [address] [place] [address] [employer]
--- OUTSIDE RECORDS SUMMARY | 2025-03-16 14:53 | XMS_ITS | Encounter Summary ---
Author Organization [facility] [employer] Address [id number] [address] [place] [address] Care Team Providers Care Inspector Of Dredging Name Role Phone Unavailable Primary Care Provider Unavailabl e Encounter Details Date Type Department Care Team (Late st Contact Info) Description 08/20/2023 Orders Only Maternal- Medicine at [facility] [address] [place] [phone] Eldon Cole R, DO [address] [place] [address] Social History Tobacco Use Types Packs/Day Years Used Date Smoking Tobacco: Never Smokeless Tobacco: Never Alcohol Use Standard Drinks/Week Comments No 0 (1 standard drink = 0.6 oz pur e alcohol) Childcare Answer Date Recorded Childcare Unknown 12/23/2018 Employment Answer Date Recorded Employment Unknown 12/23/2018 Purpose - Life Answer Date Recorded Purpose and direction in life Unknown Comments Yes Sex and Gender Information Value Date Recorded Sex Assigned at Not on file Legal Sex Female 11:57 AM EDT Gender Identity Not on file Sexual Orientation Not on file documented as of this encounter Plan of Treatment Not on file documented as of this encounter Procedures Procedure Name Priority Date/Time Associated Diagnosis Comments US PREG LMTD 1 OR MORE FETUS Routine 08/15/2023 9:58 AM EST AFP SINGLE MARKER SCRN, MATERNAL, SERUM Routine 07/24/2023 10:02 AM EST FREE CELL DNA (NON-[facility] SEND OUT) Routine 06/26/2023 11:32 AM EST UNLISTED GENETIC TEST Routine 06/26/2023 11:29 AM EST HEMOGLOBIN A1C Routine 06/20/2023 10:00 AM EST US PREG LMTD 1 OR MORE FETUS Routine 06/20/2023 9:56 AM EST documented in this encounter Results * Ultrasound limited 1 or more fetus (08/15/2023 9:58 AM EST) Anatomical Region Laterality Modality OB-SEMICONDUCTOR BONDER Ultrasound us Eldon R Kelsey DO IMG US ORDERABLES Final Result * AFP Single Marker Scrn, Maternal, Serum (07/24/2023 10:02 AM EST) us Not In System Ref Prov LAB BLOOD ORDERABLES Jordyn l Result Performing Organization Address [facility] Phone Number MANUALLY TRANSCRIBED RESULTS * Free Cell DNA (06/26/2023 11:32 AM EST) us Eldon R Kelsey DO LAB BLOOD ORDERABLES Final Resu lt Performing Organization Address [facility] de Phone Number MANUALLY TRANSCRIBED RESULTS * Unlisted Genetic Test (06/26/2023 11:29 AM EST) us Not In System Ref Prov LAB BLOOD ORDERABLES Jordyn l Result * Hemoglobin A1c (06/20/2023 10:00 AM EST) us Not In System Ref Prov LAB BLOOD ORDERABLES Jordyn l Result Performing Organization Address [facility] de Phone Number MANUALLY TRANSCRIBED RESULTS * Ultrasound limited 1 or more fetus (06/20/2023 9:56 AM EST) Anatomical Region Laterality Modality OB-SEMICONDUCTOR BONDER Ultrasound us Eldon R Kelsey DO IMG US ORDERABLES Final Result documented in this encounter Visit Diagnoses Not on filedocumented in this encounter
--- OUTSIDE RECORDS SUMMARY | 2025-03-16 14:53 | XMS_ITS | Encounter Summary ---
Author Organization [facility] Address [address] [place] [address] Care Team Providers Care Server Support Technician Name Role Phone Unavailable Primary Care Provider Unavailabl e Encounter Details Date Type Department Care Team (Late st Contact Info) Description 11/26/2023 Clinisync Result Encounter [facility] External Department Unsolicited Lea Cole, DO [address] [facility] [place] [address] Social History Tobacco Use Types Packs/Day Years [...] Diagnosis Comments US OB BPP W NON-STRESS 11/26/2023 8:37 AM EDT documented in this encounter Results * US OB BPP W NON-STRESS (11/26/2023 8:37 AM EDT) Anatomical Region Laterality Modality Other 11/26/2023 8:37 AM EDT Narrative 11/26/2023 8:40 [place] [address] Ultrasound Report Signed Patient: JULIANA CARLSON MR#: [id number] : 2000 Acct:[id number] Age/Sex: 23 / F ADM Date: 11/26/23 Loc: [facility] 250-[address]: Lea Cole D.O. Ordering Physician: Lea Cole D.O. Date of Service: 11/26/23 Procedure(s): US OB BPP w non-stress Accession Number(s): [id number] cc: Lea Cole D.O.; Rojas Keenan NP The [place] [id number] Patient Name: JULIANA CARLSON MRN: [id number] date: 2000 Sex: F Assigned Patient Location: Current Patient Location: [facility] Accession/Order Number: [id number] Exam Date: 11/26/2023 08:12 Report Date: 11/26/2023 08:37 At the request of: LEA COLE Procedure: [...] FLUID VOLUME: 2.0 PRESENTATION: CEPHALIC HEART RATE: 154.3 bpm H.B./min AMNIOTIC FLUID VOLUME: 10.1 cm cm GESTATIONAL AGE: 34 weeks 2 days CONCLUSION: Total biophysical profile score: 8.0 Electronically authenticated by: BETTYE MICHELLE Date: 11/26/2023 08:37 Dictated By: Bettye Michelle M.D. Signed By: 11/26/23 0840 DD/ TD/TT: Finishing Room Supervisor: Procedure Note Radiology, Radiologist, - 11/26/2023 [place] [address] Ultrasound Report Signed Patient: JULIANA CARLSON MMR#: [id number] : 2000Acct:[id number] Age/Sex: 23 / FADM Date: 11/26/23 Loc: [facility] 250-[address]: Lea Cole D.O. Ordering Physician: Lea Cole D.O. Date of Service: 11/26/23 Procedure(s): US OB BPP w non-stress Accession Number(s): [id number] cc: Lea Cole D.O.; Rojas Keenan NP [place] [address] Patient Name: JULIANA CARLSON MRN: [id number] date: 2000 Sex: F Assigned Patient Location: Current Patient Location: [facility] Accession/Order Number: [id number] Exam Date: 11/26/2023 08:12 Report Date: 11/26/2023 08:37 At the request of: LEA COLE Procedure: US OB BPP w non-stress EXAMINATION: US OB BPP w non-stress HISTORY: Excessive growth COMPARISON: No relevant comparison available. TECHNIQUE: Ultrasound biophysical profile was performed in the radiology department. non-reactive stress testing was performed by nursingaff in the birthing center. FINDINGS: BREATHING MOVEMENTS: 2.0 GROSS BODY MOVEMENTS: 2.0 TONE: 2.0 QUALITATIVE AMNIOTIC FLUID VOLUME: 2.0 PRESENTATION: CEPHALIC HEART RATE: 154.3 bpm H.B./min AMNIOTIC FLUID VOLUME: 10.1 cm cm GESTATIONAL AGE: 34 weeks 2 days CONCLUSION: Total biophysical profile score: 8.0 Electronically authenticated by: BETTYE MICHELLE Date: 11/26/2023 08:37 Dictated By: Bettye Michelle M.D. Signed By:11/26/23 0840 DD/ TD/TT: Finishing Room Supervisor: Lea Cole DO [facility] Final Result documented in this encounter Visit Diagnoses Not on filedocumented in this encounter Additional Health Concerns Active Problems Noted Date Diagnosed Date OB Reminders 07/23/2023 documented as of this encounter
--- OUTSIDE RECORDS SUMMARY | 2025-03-16 14:53 | XMS_ITS | Encounter Summary ---
Author Organization [facility] Address [address] [place] [address] Care Team Providers Care Talent Assistant Name Role Phone Unavailable Primary Care Provider Unavailabl e Encounter Details Date Type Department Care Team (Late st Contact Info) Description 10/21/2023 Clinisync Result Encounter [facility] External Department Unsolicited Lea Cole, DO [address] [facility] [place] [address] Social History Tobacco Use Types Packs/Day Years [...] Date/Time Associated Diagnosis Comments US OB GROWTH 10/21/2023 12:06 PM EDT documented in this encounter Results * US OB GROWTH (10/21/2023 12:06 PM EDT) Anatomical Region Laterality Modality Other 10/21/2023 12:0 6 PM EDT Narrative 10/21/2023 12:08 PM EDT The [address] [address] Ultrasound Report Signed Patient: JULIANA CARLSON MR#: [id number] : 2000 Acct:[id number] Age/Sex: 23 / F ADM Date: 10/21/23 Loc: [facility] Attending Dr: Lea Cole D.O. Ordering Physician: Lea Cole D.O. Date of Service: 10/21/23 Procedure(s): US OB growth Accession Number(s): [id number] cc: Lea Cole D.O.; ALYCIA BRUSH M.D. [place] [address] Patient Name: JULIANA CARLSON MRN: [id number] date: 2000 Sex: F Assigned Patient Location: [facility] Current Patient Location: [facility] Accession/Order Number: [id number] Exam Date: 10/21/2023 11:34 Report Date: 10/21/2023 12:06 At the request of: LEA COLE Procedure: US OB growth EXAMINATION: US OB growth HISTORY: SEVERE OBESITY WITH ALVEOLAR HYPOVENTILATION AFFECTING PREGN COMPARISON: 08/15/2023 FINDINGS: Heart Rate: 160.0 bpm Amniotic Fluid Volume: 9.3 cm Number: 1.0 Position: Cephalic presentation, longitudinal lie Maximum Vertical Pocket: 2.9 cm cm 3.3 cm cm 2.0 cm cm 1.1 cm cm BIOMETRY: BPD: 6.5 cm cm; 26 weeks 2 days; <3% HC: 26.1 cmcm; 28 weeks 3 days , 6% AC: 26.2 cm cm; 30 weeks 2 days, 79% FL: 5.7 cm cm; 29 weeks 6 days; 55.8 % % EFW: 1433.9 grams, 3 lbs. 3 oz., 57% FL/AC: 21.7 FL/BPD: 87.5 HC/AC: 1.0 GESTATIONAL AGE: Age by EDC: 29 weeks 1 days GILBERTO by EDC: 01/05/2024 Age by US: 28 weeks 5 days GILBERTO by US: 01/08/2024 US/US OB growth IMPRESSION: BPD less than the 3rd percentile Head circumference at the 6th percentile Electronically authenticated by: BETTYE MICHELLE Date: 10/21/2023 12:06 Dictated By: Bettye Michelle M.D. Signed By: 10/21/23 1208 DD/ 1206 TD/TT: Electrician Rectifier Maintenance: Procedure Note Radiology, Radiologist, - 10/21/2023 [place] [address] Ultrasound Report Signed Patient: JULIANA CARLSON MMR#: [id number] : 2000Acct:[id number] Age/Sex: Date: 10/21/23 Loc: [facility] Attending Dr: Lea Cole D.O. Ordering Physician: Lea Cole D.O. Date of Service: 10/21/23 Procedure(s): US OB growth Accession Number(s): [id number] cc: Lea Cole D.O.; ALYCIA BRUSH M.D. The [place] [address] Patient Name: JULIANA CARLSON MRN: [id number] date: 2000 Sex: F Assigned Patient Location: [facility] Current Patient Location: [facility] Accession/Order Number: [id number] Exam Date: 10/21/2023 11:34 Report Date: 10/21/2023 12:06 At the request of: LEA COLE Procedure: US OB growth EXAMINATION: US OB growth HISTORY: SEVERE OBESITY WITH ALVEOLAR HYPOVENTILATION AFFECTING PREGN COMPARISON: 08/15/2023 FINDINGS: Heart Rate: 160.0 bpm Amniotic Fluid Volume: 9.3 cm Number: 1.0 Position: Cephalic presentation, longitudinal lie Maximum Vertical Pocket: 2.9 cm cm 3.3 cm cm 2.0 cm cm 1.1 cm cm BIOMETRY: BPD: 6.5 cm cm; 26 weeks 2 days; <3% HC: 26.1 cmcm; 28 weeks 3 days , 6% AC: 26.2 cm cm; 30 weeks 2 days, 79% FL: 5.7 cm cm; 29 weeks 6 days; 55.8 % % EFW: 1433.9 grams, 3 lbs. 3 oz., 57% FL/AC: 21.7 FL/BPD: 87.5 HC/AC: 1.0 GESTATIONAL AGE: Age by EDC: 29 weeks 1 days GILBERTO by EDC: 01/05/2024 Age by US: 28 weeks 5 days GILBERTO by US: 01/08/2024 US/US OB growth IMPRESSION: BPD less than the 3rd percentile Head circumference at the 6th percentile Electronically authenticated by: BETTYE MICHELLE Date: 10/21/2023 12:06 Dictated By: Bettye Michelle M.D. Signed By:10/21/23 1208 DD/ 1206 TD/TT: Electrician Rectifier Maintenance: Lea Cole DO [facility] Final Result documented in this encounter Visit Diagnoses Not on filedocumented in this encounter Additional Health Concerns Active Problems Noted Date Diagnosed Date OB Reminders 07/23/2023 documented as of this encounter
--- OUTSIDE RECORDS SUMMARY | 2025-03-16 14:53 | XMS_ITS | Encounter Summary ---
Author Organization [facility] Address [address] [place] [address] Care Team Providers Care Bread Packer Name Role Phone Unavailable Primary Care Provider Unavailabl e Encounter Details Date Type Department Care Team (Late st Contact Info) Description 12/04/2023 Clinisync Result Encounter [facility] External Department Unsolicited Lea Cole, DO [address] [facility] [place] [address] Social History Tobacco Use Types Packs/Day Years [...] Diagnosis Comments US OB BPP W NON-STRESS 12/04/2023 7:11 AM EDT documented in this encounter Results * US OB BPP W NON-STRESS (12/04/2023 7:11 AM EDT) Anatomical Region Laterality Modality Other 12/04/2023 7:11 AM EDT Narrative 12/04/2023 7:13 AM EDT The [place] [id number] Ultrasound Report Signed Patient: JULIANA CARLSON MR#: [id number] : 2000 Acct:[id number] Age/Sex: 23 / F ADM Date: 12/03/23 Loc: US Attending Dr: Lea Cole D.O. Ordering Physician: Lea Cole D.O. Date of Service: 12/03/23 Procedure(s): US OB BPP w non-stress Accession Number(s): [id number] cc: Lea Cole D.O.; Rojas Keenan NP The [place] [id number] Patient Name: JULIANA CARLSON MRN: [id number] date: 2000 Sex: F Assigned Patient Location: [facility] Current Patient Location: Accession/Order Number: [id number] Exam Date: 12/03/2023 20:43 Report Date: 12/04/2023 07:11 At the request of: LEA COLE Procedure: US OB BPP w non-stress EXAMINATION: US OB BPP w non-stress HISTORY: GDM COMPARISON: No relevant comparison available. TECHNIQUE: Ultrasound biophysical profile was performed in the radiology department. non-reactive stress testing was performed by nursing staff in the birthing center. FINDINGS: BREATHING MOVEMENTS: 2.0 GROSS BODY MOVEMENTS: 2.0 TONE: 2.0 QUALITATIVE AMNIOTIC FLUID VOLUME: 2.0 PRESENTATION: CEPHALIC HEART RATE: 145.9 bpm H.B./min AMNIOTIC FLUID VOLUME: 15.0 cm cm GESTATIONAL AGE: 35 weeks 2 days CONCLUSION: Total biophysical profile score: 8.0 Electronically authenticated by: BETTYE MICHELLE Date: 12/04/2023 07:11 Dictated By: Bettye Michelle M.D. Signed By: 12/04/23712 DD/ 0 TD/TT: Border Patrol Agent: Procedure Note Radiology, Radiologist, - 12/04/2023 The [place] [id number] Ultrasound Report Signed Patient: JULIANA CARLSON MMR#: [id number] : 2000Acct:[id number] Age/Sex: 23 / FADM Date: 12/03/23 Loc: US Attending Dr: Lea Cole D.O. Ordering Physician: Lea Cole D.O. Date of Service: 12/03/23 Procedure(s): US OB BPP w non-stress Accession Number(s): [id number] cc: Lea Cole D.O.; Rojas Keenan NP [place] [address] Patient Name: JULIANA CARLSON MRN: [id number] date: 2000 Sex: F Assigned Patient Location: [facility] Current Patient Location: Accession/Order Number: [id number] Exam Date: 12/03/2023 20:43 Report Date: 12/04/2023 07:11 At the request of: LEA COLE Procedure: US OB BPP w non-stress EXAMINATION: US OB BPP w non-stress HISTORY: GDM COMPARISON: No relevant comparison available. TECHNIQUE: Ultrasound biophysical profile was performed in the radiology department. non-reactive stress testing was performed by nursingstaff in the birthing center. FINDINGS: BREATHING MOVEMENTS: 2.0 GROSS BODY MOVEMENTS: 2.0 TONE: 2.0 QUALITATIVE AMNIOTIC FLUID VOLUME: 2.0 PRESENTATION: CEPHALIC HEART RATE: 145.9 bpm H.B./min AMNIOTIC FLUID VOLUME: 15.0 cm cm GESTATIONAL AGE: 35 weeks 2 days CONCLUSION: Total biophysical profile score: 8.0 Electronically authenticated by: BETTYE MICHELLE Date: 12/04/2023 07:11 Dictated By: Bettye Michelle M.D. Signed By:12/04/2313 DD/ 0 TD/TT: Border Patrol Agent: Lea Cole DO [facility] Final Result documented in this encounter Visit Diagnoses Not on filedocumented in this encounter Additional Health Concerns Active Problems Noted Date Diagnosed Date OB Reminders 07/23/2023 documented as of this encounter
--- OUTSIDE RECORDS SUMMARY | 2025-03-16 14:53 | XMS_ITS | Encounter Summary ---
Author Organization [facility] Address [address] [place] [address] Care Team Providers Care Professor Of Sociology Name Role Phone Unavailable Primary Care Provider Unavailabl e Encounter Details Date Type Department Care Team (Late st Contact Info) Description 08/15/2023 Clinisync Result Encounter [facility] External Department Unsolicited Lea Cole, DO [address] [facility] [place] [address] Social History Tobacco Use Types Packs/Day Years [...] Priority Date/Time Associated Diagnosis Comments US OB ANATOMY 08/15/2023 12:52 PM EST documented in this encounter Results * OB ANATOMY (08/15/2023 12:52 PM EST) Anatomical Region Laterality Modality Other 08/15/2023 12:5 2 PM EST Narrative 08/15/2023 12:54 PM EST The [address] [address] Ultrasound Report Signed Patient: JULIANA CARLSON MR#: [id number] : 2000 Acct:[id number] Age/Sex: 23 / F ADM Date: 08/15/23 Loc: US Attending Dr: Lea Cole D.O. Ordering Physician: Lea Cole D.O. Date of Service: 08/15/23 Procedure(s): US OB anatomy Accession Number(s): [id number] cc: Lea Cole D.O.; ALYCIA BRUSH M.D. [address] [address] Patient Name: JULIANA CARLSON MRN: [id number] date: 2000 Sex: F Assigned Patient Location: US Current Patient Location: US Accession/Order Number: [id number] Exam Date: 08/15/2023 11:00 Report Date: 08/15/2023 12:52 At the request of: LEA COLE Procedure: US OB anatomy EXAMINATION: US OB anatomy, US OB cervical [...] GILBERTO by current US: 01/09/2024 US/US OB anatomy IMPRESSION: 1. Single live intrauterine with growth detailed above. 2. Hard palate is not well seen but there is question of a defect within the anterior palate versus artifact. Follow-up evaluation is recommended. Electronically authenticated by: COLLETTE BABCOCK Date: 08/15/2023 12:52 Dictated By: Collette Babcock M.D. Signed By: 08/15/23 1254 DD/ 1252 TD/TT: Quality Assurance Representative: Procedure Note Radiology, Radiologist, - 08/15/2023 [place] [address] Ultrasound Report Signed Patient: JULIANA CARLSON MMR#: [id number] : 2000Acct:[id number] Age/Sex: 23 / FADM Date: 08/15/23 Loc: US Attending Dr: Lea Cole D.O. Ordering Physician: Lea Cole D.O. Date of Service: 08/15/23 Procedure(s): US OB anatomy Accession Number(s): [id number] cc: Lea Cole D.O.; ALYCIA BRUSH M.D. The [place] [address] Patient Name: JULIANA CARLSON MRN: [id number] date: 2000 Sex: F Assigned Patient Location: US Current Patient Location: US Accession/Order Number: [id number] Exam Date: 08/15/2023 11:00 Report Date: 08/15/2023 12:52 At the request of: LEA COLE Procedure: US OB anatomy EXAMINATION: US OB anatomy, US OB cervical [...] GILBERTO by current US: 01/09/2024 US/US OB anatomy IMPRESSION: 1. Single live intrauterine with growth detailed above. 2. Hard palate is not well seen but there is question of a defect withinthe anterior palate versus artifact. Follow-up evaluation is recommended. Electronically authenticated by: COLLETTE BABCOCK Date: 08/15/2023 12:52 Dictated By: Collette Babcock M.D. Signed By:08/15/23 1254 DD/ 1252 TD/TT: Quality Assurance Representative: us Lea Kelsey DO [facility] Final Result documented in this encounter Visit Diagnoses Not on filedocumented in this encounter Additional Health Concerns Active Problems Noted Date Diagnosed Date OB Reminders 07/23/2023 documented as of this encounter
--- OUTSIDE RECORDS SUMMARY | 2025-03-16 14:53 | XMS_ITS | Encounter Summary ---
Author Organization [facility] Address [address] [place] [address] Care Team Providers Care Audio Visual Aide Name Role Phone Unavailable Primary Care Provider Unavailabl e Encounter Details Date Type Department Care Team (Late st Contact Info) Description 12/30/2023 Abstract [facility] [address] [facility] [place] [phone] Eldon Cole DO [address] [facility] [place] [address] Social History Tobacco Use Types Packs/Day Years [...]
--- OUTSIDE RECORDS SUMMARY | 2025-03-16 14:53 | XMS_ITS | Encounter Summary ---
Author Organization [facility] Address [address] [place] [address] Care Team Providers Care Pens And Pencils Dipper Name Role Phone Unavailable Primary Care Provider Unavailabl e Encounter Details Date Type Department Care Team (Late st Contact Info) Description 03/04/2025 Telephone [facility] [address] [place] [phone] Eldon Cole DO [address] [place] [address] Social History Tobacco Use Types Packs/Day Years Used Date Smoking Tobacco: Never PHQ-2 Answer Date Recorded Patient Health Questionnaire-2 Score 0 01/05/2024 Comments Unknown Sex and Gender Information Value Date Recorded Sex Assigned at Not on file Legal Sex Female 11:47 PM EDT Gender Identity Female 06/13/2023 8:37 AM EST Sexual Orientation Not on file documented as of this encounter Miscellaneous Notes * Telephone Encounter - Kiki Blackmon LPN - 03/04/2025 10:33 AM EDT Patient called the office and she I asking if something for UTI can be called into prior to her appointment next week. Patient made aware script would be sent. documented in this encounter Plan of Treatment Not on file documented as of this encounter Goals Goal Patient Goal Type Associated Problems Recent Progress Patient-Stated? Author Reminders Care Plan OB Reminders No Open Scheduling, Background documented as of this encounter Visit Diagnoses Diagnosis UTI symptoms documented in this encounter Additional Health Concerns Active Problems Noted Date Diagnosed Date OB Reminders 07/23/2023 documented as of this encounter
--- OUTSIDE RECORDS SUMMARY | 2025-03-16 14:53 | XMS_ITS | Encounter Summary ---
Author Organization [facility] Address [address] [place] [address] Care Team Providers Care Conformal Pad Former Name Role Phone Unavailable Primary Care Provider Unavailabl e Encounter Details Date Type Department Care Team (Late st Contact Info) Description 12/17/2023 Clinisync Result Encounter [facility] External Department Unsolicited Lea Cole, DO [address] [facility] [place] [address] Social History Tobacco Use Types Packs/Day Years [...] Diagnosis Comments US OB BPP W NON-STRESS 12/17/2023 1:59 PM EDT documented in this encounter Results * US OB BPP W NON-STRESS (12/17/2023 1:59 PM EDT) Anatomical Region Laterality Modality Other 12/17/2023 1:59 PM EDT Narrative 12/17/2023 2:02 [place] [address] Ultrasound Report Signed Patient: JULIANA CARLSON MR#: [id number] : 2000 Acct:[id number] Age/Sex: 23 / F ADM Date: 12/17/23 Loc: US Attending Dr: Lea Cole D.O. Ordering Physician: Lea Cole D.O. Date of Service: 12/17/23 Procedure(s): US OB BPP w non-stress Accession Number(s): [id number] cc: Lea Cole D.O.; Rojas Keenan NP The [place] [id number] Patient Name: JULIANA CARLSON MRN: [id number] date: 2000 Sex: F Assigned Patient Location: US Current Patient Location: Accession/Order Number: [id number] Exam Date: 12/17/2023 11:10 Report Date: 12/17/2023 13:59 At the request of: LEA COLE Procedure: US OB BPP w non-stress EXAMINATION: US OB BPP w non-stress HISTORY: GESTATIONAL DIABETES MELLITUS Z13.1 COMPARISON: Ultrasound OB biophysical 12/10/2023 TECHNIQUE: Ultrasound biophysical profile was performed in the radiology department. BREATHING MOVEMENTS: 2.0 GROSS BODY MOVEMENTS: 2.0 TONE: 2.0 QUALITATIVE AMNIOTIC FLUID VOLUME: 2.0 PRESENTATION: CEPHALIC HEART RATE: 163.6 bpm bpm. AMNIOTIC FLUID VOLUME: 11.1 cm GESTATIONAL AGE: 37 weeks 2 days CONCLUSION: Total biophysical profile score 8.0. Electronically authenticated by: COLLETTE BABCOCK Date: 12/17/2023 13:59 Dictated By: Collette Babcock M.D. Signed By: 12/17/23 1402 DD/ 1359 TD/TT: Equipment Operator [employer] Yard: Procedure Note Radiology, Radiologist, MD - 12/17/2023 The [place] [id number] Ultrasound Report Signed Patient: JULIANA CARLSON MMR#: [id number] : 2000Acct:[id number] Age/Sex: 23 / FADM Date: 12/17/23 Loc: US Attending Dr: Lea Cole D.O. Ordering Physician: Lea Cole D.O. Date of Service: 12/17/23 Procedure(s): US OB BPP w non-stress Accession Number(s): [id number] cc: Lea Cole D.O.; Rojas Keenan NP [place] [address] Patient Name: JULIANA CARLSON MRN: [employer]:[id number] date: 2000 Sex: F Assigned Patient Location: US Current Patient Location: Accession/Order Number: [id number] Exam Date: 12/17/2023 11:10 Report Date: 12/17/2023 13:59 At the request of: LEA COLE Procedure: US OB BPP w non-stress EXAMINATION: US OB BPP w non-stress HISTORY: GESTATIONAL DIABETES MELLITUS Z13.1 COMPARISON: Ultrasound OB biophysical 12/10/2023 TECHNIQUE: Ultrasound biophysical profile was performed in the radiology department. BREATHING MOVEMENTS: 2.0 GROSS BODY MOVEMENTS: 2.0 TONE: 2.0 QUALITATIVE AMNIOTIC FLUID VOLUME: 2.0 PRESENTATION: CEPHALIC HEART RATE: 163.6 bpm bpm. AMNIOTIC FLUID VOLUME: 11.1 cm GESTATIONAL AGE: 37 weeks 2 days CONCLUSION: Total biophysical profile score 8.0. Electronically authenticated by: COLLETTE BABCOCK Date: 12/17/2023 13:59 Dictated By: Collette Babcock M.D. Signed By:12/17/23 1402 DD/ 1359 TD/TT: Equipment Operator [employer]: us Lea Cole DO [facility] Final Result documented in this encounter Visit Diagnoses Not on filedocumented in this encounter Additional Health Concerns Active Problems Noted Date Diagnosed Date OB Reminders 07/23/2023 documented as of this encounter
--- OUTSIDE RECORDS SUMMARY | 2025-03-16 14:53 | XMS_ITS | Encounter Summary ---
Author Organization [facility] Address [address] [place] [address] Care Team Providers Care Multi Operation Forming Machine Setter Name Role Phone Unavailable Primary Care Provider Unavailabl e Encounter Details Date Type Department Care Team (Late st Contact Info) Description 11/20/2023 Clinisync Result Encounter [facility] External Department Unsolicited Trisha Slater PA [address] [place] [address] [address] [address] Social History Tobacco Use Types Packs/Day Years [...] Date/Time Associated Diagnosis Comments US OB GROWTH 11/20/2023 5:31 PM EDT documented in this encounter Results * US OB GROWTH (11/20/2023 5:31 PM EDT) Anatomical Region Laterality Modality Other 11/20/2023 5:31 PM EDT Narrative 11/20/2023 5:33 PM EDT The [address] [address] Ultrasound Report Signed Patient: JULIANA CARLSON MR#: [id number] : 2000 Acct:[id number] Age/Sex: 23 / F ADM Date: 11/20/23 Loc: [facility] Attending Dr: Trisha Slater Ordering Physician: Trisha Slater Date of Service: 11/20/23 Procedure(s): US OB growth Accession Number(s): [id number] cc: Trisha Slater; Rojas Keenan NP [place] [id number] Patient Name: JULIANA CARLSON MRN: [id number] date: 2000 Sex: F Assigned Patient Location: [facility] Current Patient Location: Accession/Order Number: [id number] Exam Date: 11/20/2023 08:37 Report Date: 11/20/2023 17:31 At the request of: TRISHA SLATER Procedure: US OB growth EXAMINATION: US OB growth HISTORY: GDM COMPARISON: No relevant comparison available. FINDINGS: Heart Rate: 155.0 bpm Number: 1.0 Position: CEPHALIC Amniotic Fluid Volume: 11.7 cm Maximum Vertical Pocket: 3.6 cm BIOMETRY: BPD: 8.0 cm cm; 31 weeks 6 days; 9% HC: 29.9 cmcm; 33 weeks 0 days ; 10% AC: 29.3 cm cm; 33 weeks 2 days; 48% FL: 6.3 cm cm; 32 weeks 4 days; 17% EFW: 2078.5 grams; 27% FL/AC: 21.4 FL/BPD: 79.0 HC/AC: 1.0 GESTATIONAL AGE: Age by EDC: 33 weeks 3 days GILBERTO by EDC: 01/05/2024 Age by US: 32 weeks 5 days GILBERTO by US: 01/10/2024 US/US OB growth IMPRESSION: 1. Single live intrauterine with growth detailed above. Electronically authenticated by: COLLETTE BABCOCK Date: 11/20/2023 17:31 Dictated By: Collette Babcock M.D. Signed By: 11/20/23 1733 DD/ 173 TD/TT: Supervisor Burling And Joining: Procedure Note Radiology, Radiologist, MD - 11/20/[address] [address] Ultrasound Report Signed Patient: JULIANA CARLSON MMR#: [id number] : 2000Acct:[id number] Age/Sex: 23 / FADM Date: 11/20/23 Loc: [facility] Attending Dr: Trisha Slater Ordering Physician: Trisha Slater Date of Service: 11/20/23 Procedure(s): US OB growth Accession Number(s): [id number] cc: Trisha Slater; Rojas Keenan NP The [place] [id number] Patient Name: JULIANA CARLSON MRN: [id number] date: 2000 Sex: F Assigned Patient Location: [facility] Current Patient Location: Accession/Order Number: [id number] Exam Date: 11/20/2023 08:37 Report Date: 11/20/2023 17:31 At the request of: TRISHA SLATER Procedure: US OB growth EXAMINATION: US OB growth HISTORY: GDM COMPARISON: No relevant comparison available. FINDINGS: Heart Rate: 155.0 bpm Number: 1.0 Position: CEPHALIC Amniotic Fluid Volume: 11.7 cm Maximum Vertical Pocket: 3.6 cm BIOMETRY: BPD: 8.0 cm cm; 31 weeks 6 days; 9% HC: 29.9 cmcm; 33 weeks 0 days ; 10% AC: 29.3 cm cm; 33 weeks 2 days; 48% FL: 6.3 cm cm; 32 weeks 4 days; 17% EFW: 2078.5 grams; 27% FL/AC: 21.4 FL/BPD: 79.0 HC/AC: 1.0 GESTATIONAL AGE: Age by EDC: 33 weeks 3 days GILBERTO by EDC: 01/05/2024 Age by US: 32 weeks 5 days GILBERTO by US: 01/10/2024 US/US OB growth IMPRESSION: 1. Single live intrauterine with growth detailed above. Electronically authenticated by: COLLETTE BABCOCK Date: 11/20/2023 17:31 Dictated By: Collette Babcock M.D. Signed By:11/20/23 1733 DD/ 1731 TD/TT: Supervisor Burling And Joining: us Trisha [facility] Final Result documented in this encounter Visit Diagnoses Not on filedocumented in this encounter Additional Health Concerns Active Problems Noted Date Diagnosed Date OB Reminders 07/23/2023 documented as of this encounter
--- OUTSIDE RECORDS SUMMARY | 2025-03-16 14:54 | XMS_ITS | Patient Health Record ---
Author Organization [facility] Address [address] [place] [id number] Care Team Providers Care Solid Die Cutter Name Role Phone Jamila Rubio Primary Care Provider [phone] Unavailable [phone] Bernice Gallego Unavailable [phone] Allergies No Known Allergies Results Component Value Reference Range Notes Strep Screen Reviewed date:11/16/2024 03:27:01 PM Interpretation: Performing Lab: Notes/Report: Result positive Cannabinoid Conf, MS, UR Reviewed date:02/15/2025 08:56:45 AM Interpretation: Performing Lab: Notes/Report: , [facility] Cannabinoid Positive . Carboxy THC Conf, MS, UR 220 Cutoff=10 ng/mL Performed at: [facility] [address] [id number] Bullet Swaging Machine Operator: Danuta Orosco PhD, Phone: [phone] Performing Lab: see note - [facility] LB Vitamin B12 Reviewed date:02/11/2025 08:29:35 AM Interpretation: Performing Lab: Notes/Report: , [facility] Vitamin B12 612 311-6096 pg/mL Performed at: [facility] [address] [id number] Bullet Swaging Machine Operator: Darian Hernandez PhD, Phone: [phone] Performing Lab: see note - [facility] LB Ferritin Reviewed date:02/10/2025 04:51:29 PM Interpretation: Performing Lab: Notes/Report: , [facility] Ferritin 12.0 8.0-252.0 ng/mL Performing Lab: see note - [facility] LB Vitamin D Reviewed date:02/10/2025 04:51:29 PM Interpretation: Performing Lab: Notes/Report: [facility] , Vitamin D 25.4 <20 ng/mL Vit D deficient 20-<30 ng/mL Vit D insufficient 30-100 ng/mL Vit D sufficient >100 ng/mL Potential Toxicity Performing Lab: see note ML - [facility] LB Drug Screen Urine Reviewed date:02/10/2025 04:51:29 PM Interpretation: Performing Lab: Notes/Report: , [facility] Cannabinoid Screen Urine POSITIVE NEGATIVE Phencyclidine Screen Urine NEGATIVE NEGATIVE Cocaine Screen Urine NEGATIVE NEGATIVE Methamphetamines Screen Urine NEGATIVE NEGATIVE Opiate Screen Urine NEGATIVE NEGATIVE Amphetamine Screen Urine NEGATIVE NEGATIVE Benzodiazepines Screen Urine NEGATIVE NEGATIVE Tricyclic Antidepressant Urine NEGATIVE NEGATIVE Methadone Screen Urine NEGATIVE NEGATIVE Barbiturates Screen Urine NEGATIVE NEGATIVE Oxycodone Screen Urine NEGATIVE NEGATIVE Buprenorphine Screen Urine NEGATIVE NEGATIVE DRUG CLASS TEST SYSTEM CUT-OFF CONCENTRATIONS ARE FOLLOWS: AMP (Amphetamine): 500 ng/mL BAR (Barbiturates): 200 ng/mL BZO (Benzodiazepines): 150 ng/mL BUP (Buprenorphine): 10 ng/mL MADHURI (Cocaine): 150 ng/mL mAMP (Methamphetamine): 500 ng/mL MTD (Methadone): 200 ng/mL OPI (Opiates): 100 ng/mL OXY (Oxycodone): 100 ng/mL PCP (Phencyclidine): 25 ng/mL THC (Cannabinoids): 50 ng/mL TCA (Trycyclic Antidepressants): 300 ng/mL Performing Lab: see note ML - [facility] LB Lipid Panel Reviewed date:02/10/2025 04:51:29 PM Interpretation: Performing Lab: Notes/Report: , [facility] Triglycerides 71 <=150 mg/dL Cholesterol 113 <=200 mg/dL HDL Cholesterol 42 40-60 mg/dL > or =60 mg/dl - LOW CARDIOVASCULAR RISK <40 mg/dl - HIGH CARDIOVASCULAR RISK LDL Cholesterol Calculated 56.8 <100 mg/dl OPTIMAL 100-129 mg/dl NEAR OR ABOVE OPTIMAL 130-159 mg/dl BORDERLINE HIGH 160-189 mg/dl HIGH >190 mg/dl VERY HIGH VLDL CHOLESTEROL 14.2 Chol HDL Ratio 2.7 3.3 - 4.4 LOW RISK 4.4 - 7.1 AVERAGE RISK 7.1 - 11.0 MODERATE RISK >11.0 HIGH RISK Performing Lab: see note - [facility] LB Thyroid Stimulating Hormone Reviewed date:02/10/2025 04:51:29 PM Interpretation: Performing Lab: Notes/Report: [facility] , Thyroid Stimulating Hormone 1.182 0.358-3.740 u IU/mL Performing Lab: see note - [facility] LB Glycohemoglobin A1C Reviewed date:02/10/2025 04:51:29 PM Interpretation: Performing Lab: Notes/Report: [facility] , Glycohemoglobin A1C 5.7 4.5-6.2 % ADA RECOMMENDED LIMIT 4.0 - 6.0 ADA THERAPEUTIC TARGET < 7.0 ACTION SUGGESTED > 7.0 Estimated Average Glucose 117 Performing Lab: see note - [facility] LB Complete Blood Count Auto Di ff Reviewed date:02/10/2025 04:51:29 PM Interpretation: Performing Lab: Notes/Report: [facility] , White Blood Count 9.5 4.0-11.0 10 3/uL Red Blood Count 5.61 4.20-5.40 10 6/uL Hemoglobin 13.8 12.0-16.0 g/dL Hematocrit 44.4 36.0-48.0 % Mean Corpuscular Volume 79.1 81.0-99.0 fL Mean Corpuscular Hemoglobin 24.6 26.7-34.0 pg Mean Corpuscular HGB Conc 31.1 29.9-35.2 g/dL Red Cell Distribution Width 14.5 11.0-15.0 % Platelet Count 418 150-450 10 3/uL Mean Platelet Volume 9.7 9.5-13.5 fL Neutrophils Percent Auto 62.0 43.0-75.0 % Lymphocytes Percent Auto 29.4 20.5-60.0 % Monocytes Percent Auto 5.6 1.7-12.0 % Eosinophils Percent Auto 2.2 0.9-7.0 % Basophils Percent Auto 0.5 0.2-2.0 % Immature Granulocytes Pct Auto 0.3 0.0-0.5 % Neutrophils Absolute Auto 5.9 1.4-6.5 10 3/uL Lymphocytes Absolute Auto 2.8 1.2-3.8 10 3/uL Monocytes Absolute Auto 0.5 0.3-0.8 10 3/uL Eosinophils Absolute Auto 0.2 0.0-0.7 10 3/uL Basophils Absolute Auto 0.1 0.0-0.1 10 3/uL Immature Granulocytes Abs Auto 0.03 0.00-0.03 10 3/uL Performing Lab: see note ML - [facility] Comprehensive Metabolic Pane l Reviewed date:02/10/2025 04:51:29 PM Interpretation: Performing Lab: Notes/Report: [facility] , Sodium 137 136-145 mmol/L Potassium 4.3 3.5-5.1 mmol/L Chloride 102 98-107 mmol/L Carbon Dioxide 27.7 21.0-32.0 mmol/L Anion Gap 11.6 Glucose 91 74-106 mg/dL Blood Urea Nitrogen 10.0 7.0-18.0 mg/dL Creatinine 0.59 0.55-1.02 mg/dL Estimated GFR ( [place]jgan >60 >=60 mL/min/1.73m 2 Estimated GFR (Non- Laury >60 >=60 mL/min/1.73m 2 BUN Creatinine Ratio 16.9 Calcium 9.0 8.5-10.1 mg/dL Bilirubin Total 0.3 0.2-1.0 mg/dL Aspartate Amino Transferase 11 15-37 U/L Alanine Aminotransferase 23 14-59 U/L Alkaline Phosphatase 85 46-116 U/L Total Protein 8.0 6.4-8.2 g/dL Albumin Level 3.6 3.4-5.0 g/dL Globulin 4.4 Albumin Globulin Ratio 0.8 Performing Lab: see note ML - [facility] Iron TIBC Reviewed date:02/10/2025 04:51:29 PM Interpretation: Performing Lab: Notes/Report: , [facility] Iron 43.0 50.0-170.0 ug/dL Total Iron Binding Capacity 335.0 250.0-450.0 u g/dL Percent Iron Saturation 12.8 Performing Lab: see note ML - [facility] Reason For Referral Reason Z56.0 Unemployment Diagnosis 1 Unemployment, unspec ified (Z56.0) Referral Organization Main Referring Provider First Name Bernice Referring Provider Last Name Lashonda Referring Provider Speciality Nurse Prac titioner Referred Provider PRAPARE Referred Provider Specialty Public Healt or Welfare Agencies General Notes Eulogio Petersen 11/19 09:33:40 AM >Resources sent via text Referral Priority Urgent Reason EXT 1, 16, 17, 18, 3 1, 32 Diagnosis 1 Impacted teeth with abnormal position (K01.1) Referral Organization [facility] Referring Provider First Name Rachael Referring Provider Last Name Jessica Referring Provider Speciality Dental Gen [facility] Practice Referred Provider [employer], concierge manager Referred Provider Specialty Oral Surgery General Notes Rachael Lopez 12/13 11:05:41 AM >Hard copy given to the patient in operatory. Patient verbally understands referral process., Joaquina Hannon 01/21/2025 01:34:39 PM >Called and spoke with pt she states she hasn't given [employer] a call yet, Joaquina Hannon 02/08/2025 04:45:26 PM >Marking referral as addressed due to no follow up from pt after 1st attempt to contact. Referral Priority Routine Medications Medication SIG (Take, Route, Frequency, Duration) Notes Start Date End Date Status Phentermine HCl 37.5 MG 1 tablet before breakfast Orally Once a day; Duration: 30 days OARRS REVIEWED, OK TO FILL 03/10/2025 Active Deblitane 0.35 MG TAKE 1 TABLET BY MOUTH DAILY Oral; Duration: 28 Days Active Immunizations Vaccine Route Administration Date Status Comme nts *Tdap (Adacel)-VFC IM Intramuscular 03/30/2013 Administere d Status:Complet e ,Reason:Given or N/A ,[facility]# [id number] HPV (human papillomavirus), quadrivalent, 3 dose schedule IM Intramuscular 03/30/2013 Administered Status:Complet e ,Reason:Given or N/A ,[facility]# [id number] HPV (human papillomavirus), quadrivalent, 3 dose schedule IM Intramuscular 06/03/2013 Administered Status:Complet e ,Reason:Given or N/A ,[facility]# [id number] Influenza, live, intranasal OTH Other/Miscellaneous 06/13/2010 Administered Status:Complet e ,Reason:Given or N/A Influenza, live, intranasal NS Nasal 07/21/2012 Administered Status:Complet e ,Reason:Given or N/A Influenza, live, intranasal NS Nasal 06/03/2013 Administered Status:Complet e ,Reason:Given or N/A ,[facility]# [id number] Meningococcal MCV4P IM Intramuscular 03/30/2013 Administer ed Status:Complet e ,Reason:Given or N/A ,[facility]# [id number] Social History Tobacco Use: Social History Observation Description Date Details (start date - stop date) Never Smoker NA - NA Sex Assigned At : Social History Observation Description Sex Assigned At Female CAGE-AID Questionnaire (2018 Edition) Question Answer Notes Have you ever felt that you ought to cut down on your drinking or drug use? No patient entered data Have people annoyed you by c riticizing your drinking or drug use? No patient entered data Have you ever felt bad or gu ilty about your drinking or drug use? No patient entered data Have you ever had a drink or used drugs first thing in the morning to steady your nerves or to get rid of a hangover? No patient entered data CAGE-AID Score 0 Interpretation Negative PRAPARE Question Answer Notes Date Completed/Updated: 2000 devon nt entered data What is your current housing situation? I have housing patient entered data Are you worried about losing your housing? No patient entered data What is the highest level of school that you have finished? High school diploma or GED patient entered data What is your current work situation? Unemployed and seeking work patient entered data In the past year, have you o r any family members you live with been unable to get any of the following when it was really needed? Check all that apply I do not have problems meeting my needs patient entered data Has lack of transportation k ept you from medical appointments, meetings, work or from getting things needed for daily living? No patient entered j carlos a How often do you see or talk to people that you care about and feel close to? (For example: talking to friends on the phone, visiting friends or family, going to oriental orthodox or club meetings) 3 to 5 times a week patient entered data How stressed are you? Stress is when someone feels tense, nervous, anxious, or can't sleep at night because their mind is troubled Not at all patient entered data In the past year have you sp ent more than 2 nights in a row in a fci, retirement, shelter center, or juvenile correctional facility? No patient entered data Are you a refugee? No patient en tered data What country are you from? [place] rayo entered data Do you feel physically and emotionally safe where you currently live? Yes patient entered data In the past year, have you b een afraid of your partner or ex-partner? No patient entered data PRAPARE Score: 5 Tobacco Control (Standard) Question Answer Notes Tobacco use: Nonsmoker Additional Findings: Tobacco non-user Current no nsmoker Problems Problem Type SNOMED Code ICD Code Onset Dates Problem Status W/U Status Risk Notes Problem Severe obesity (BMI >= 40) (E66.01) Active confirmed Vital Signs Heart Rate 85 /min 03/10/2025 Fauzia Ser vando 03/10/2025 11:22:39 AM EDT > Temperature 99.5 degrees Fahrenheit 03/10/2025 Renee devries Marek 03/10/2025 11:22:39 AM EDT > Respiratory Rate 18 /min 03/10/2025 Fauzia Marek 03/10/2025 11:22:39 AM EDT > Oximetry 98 % 02/10/2025 Fauzia Ser vando 02/10/2025 11:23:16 AM EDT > Height-cm 160.02 cm 03/10/2025 Cage, Ser vando 03/10/2025 11:22:39 AM EDT > Blood pressure diastolic 82 mm Hg 03/10/2025 Felicia doolga Marek 03/10/2025 11:22:39 AM EDT > Weight-kg 116.12 kg 03/10/2025 Cage, Ser vando 03/10/2025 11:22:39 AM EDT > Height 63 in 03/10/2025 Cage, Ser vando 03/10/2025 11:22:39 AM EDT > Blood pressure systolic 119 mm Hg 03/10/2025 Renee devries, Marek 03/10/2025 11:22:39 AM EDT > Weight 256 lbs 03/10/2025 Fauzia Ser vando 03/10/2025 11:22:39 AM EDT > BMI 45.34 kg/m2 03/10/2025 Eddi Cage 03/10/2025 11:22:39 AM EDT > Encounters Encounter Location Date Provider Diagnosis [place] [address] [place] [id number] 11/16/2024 Bernice Lashonda Sore throat J02.9 and Unemployment, unspecified Z56.0 [facility] [address] [place], [place] [id number] 12/31/2024 Rachaelalbaro Lopez Encounter for scre ening for dental disorders Z13.84 ; Necrosis of pulp K04.1 ; Encounter for dental examination and cleaning with abnormal findings Z01.21 and Dental caries into dentine K02.62 [facility] [address] [place], [place] [id number] 12/31/2024 Rachael Lopez BMI 45.0-49.9, susi lt Z68.42 ; Encounter for dental examination and cleaning with abnormal findings Z01.21 ; Dietary counseling Z71.3 and Exercise counseling Z71.82 Main [address] [place], [place] [id number] 02/10/[address] [facility] Severe obesity (BM I >= 40) E66.01 ; Chronic fatigue R53.82 ; Screening for cardiovascular condition Z13.6 ; Elevated fasting glucose R73.01 and High risk medication use Z79.899 [address] [place], [place] [id number] 03/10/2025 Jamila Ramiro Severe obesity (BM I >= 40) E66.01 and BMI 45.0-49.9, adult Z68.42 [facility] [address] [place], [place] [id number] 02/10/[address] [facility] Severe obesity (BM I >= 40) E66.01 Assessments Encounter Date Diagnosis (ICD Code) Assessment Notes Treatment Notes Treatment Clinical Notes Section Notes 11/16/2024 Sore throat (ICD-10 - J02.9) starting another round of amoxicillin if not improving or worse in anyway, please f.u 12/31/2024 Encounter for screening for dental disorders (ICD-10 - Z13.84) 12/31/2024 BMI 45.0-49.9, adult (ICD-10 - Z68.42) Nutrition counseling focusing on a low sodium and low sugar diet discussed with the patient, as well as appropriate weekly exercise and increased activity as tolerated to work towards a more optimal body mass index for improved overall health. 02/10/2025 Severe obesity (BMI >= 40) (ICD-10 - E66.01) CSA signed today in-office, UDS ordered, pt completed after visit today. Once resulted w/ negtive UDS, will send in Adipex to Pharmacy. Encouraged healthy diet and exercise Discussed reasons for D/C'ing medication, such as minimal to no weight loss monthly, side effects/situat ions where risks are greater than benefits, or BMI of 30 and below, PVU Monthly weight checks required for compliance of medication. F/U 1 month or PRN 02/10/2025 Chronic fatigue (ICD-10 - R53.82) 02/10/2025 Severe obesity (BMI >= 40) (ICD-10 - E66.01) 03/10/2025 Severe obesity (BMI >= 40) (ICD-10 - E66.01) RX sent for Phentermine 37.5mg 1AM at this time. Continue w/ healthy diet and exercise. Pt denies any concerns. F/U 1 month or PRN 03/10/2025 BMI 45.0-49.9, adult (ICD-10 - Z68.42) 12/31/2024 Encounter for dental examination and cleaning with abnormal findings (ICD-10 - Z01.21) Nutrition counseling focusing on a low sodium and low sugar diet discussed with the patient, as well as appropriate weekly exercise and increased activity as tolerated to work towards a more optimal body mass index for improved overall health. 12/31/2024 Necrosis of pulp (ICD-10 - K04.1) 11/16/2024 Unemployment, unspecified (ICD-10 - Z56.0) 12/31/2024 Encounter for dental examination and cleaning with abnormal findings (ICD-10 - Z01.21) 12/31/2024 Dietary counseling (ICD-10 - Z71.3) Nutrition counseling focusing on a low sodium and low sugar diet discussed with the patient, as well as appropriate weekly exercise and increased activity as tolerated to work towards a more optimal body mass index for improved overall health. 02/10/2025 Screening for cardiovascular condition (ICD-10 - Z13.6) 02/10/2025 Elevated fasting glucose (ICD-10 - R73.01) 12/31/2024 Exercise counseling (ICD-10 - Z71.82) Nutrition counseling focusing on a low sodium and low sugar diet discussed with the patient, as well as appropriate weekly exercise and increased activity as tolerated to work towards a more optimal body mass index for improved overall health. 12/31/2024 Dental caries into dentine (ICD-10 - K02.62) 02/10/2025 High risk medication use (ICD-10 - Z79.899) Plan Of Treatment Next Appt Details Provider Name:Jamila Ramiro , 04/11/2025 11:15:00 AM, [address] [place] [address], [phone], Provider Name:Megan Wood , 04/11/2025 12:45:00 PM, [address] [place] [address], [phone], Provider Name:Megan Wood , 04/18/2025 03:00:00 PM, [address] [place] [address], [phone], Provider Name:Rachael Lopez , 07/12/2025 08:45:00 AM, [address] [place] [address], [phone], Insurance Providers Payer Name Payer Address Payer Phone Subscriber Number Group Number Insured Name Patient Relationship to Insured Coverage Start Date [facility]age End Date [facility] [address] [place] [address] [id number] Juliette Tierney Self - patient is the insured 3 [employer] after [place] [address] [place], [place] [id number] Juliette Tierney Self - patient is the insured 5 Medicaid CFC after [place] [address] [place] [address] [id number] Juliette Tierney Self - patient is the insured 3 [facility] [address] [address] [place] [address] [id number] Juliette Tierney Self - patient is the insured 5 Medical (General) History Medical History History ICD Code Seasonal Allergies Surgical History Surgery Date(Month/Year)
--- OUTSIDE RECORDS SUMMARY | 2025-03-16 14:54 | XMS_ITS | Encounter Summary ---
Author Organization [facility] Address [address] [place] [address] Care Team Providers Care Him Director Name Role Phone Unavailable Primary Care Provider Unavailabl e Encounter Details Date Type Department Care Team (Late st Contact Info) Description 03/16/2025 Bamboo flowsheet [facility] [address] [place] [address] [place], IAN [address] [place] [address] Social History Tobacco Use Types Packs/Day Years [...]
--- OUTSIDE RECORDS SUMMARY | 2025-03-16 14:54 | XMS_ITS | Clinical Summary ---
Author Organization [facility] Healthcare Address [address] [place] [address] Care Team Providers Care Data Integration Analyst Name Role Phone Unavailable Primary Care Provider Unavailabl e Allergies No known active allergies Medications levonorgestrel-eth inyl estradiol (Jolessa) 0.15-0.03 MG tabletIndications: Encounter for surveillance of contraceptive pills Take 1 tablet by mouth Daily Take 1 tablet by mouth daily 84 tablet 3 5 05/09/20 25 Active norethindrone-ethi nyl estradiol-iron (Lo Loestrin Fe) 1 MG-10 MCG / 10 MCG tabletIndications: Well woman exam with routine gynecological exam, control counseling Take 1 tablet by mouth Daily for 28 days Take 1 tablet by mouth daily 28 tablet 11 5 04/13/20 25 Active nitrofurantoin, macrocrystal-monoh ydrate, (Macrobid) 100 MG capsuleIndications :UTI symptoms Take 1 capsule (100 mg) by mouth in the morning and 1 capsule (100 mg) before bedtime. Do all this for 7 days. 14 capsule 5 03/11/20 25 Encounters Date Type Department Care Team Description 03/16/2025 9:00 AM EDT Procedure Visit [facility] [address] [place] [phone] Mehnaz Park NP control counseling (Primary Dx); Well woman exam with routine gynecological exam 03/16/2025 Bamboo flowsheet [facility] [address] [place] [phone] Mehnaz Park NP 03/04/2025 Telephone [facility] [address] [place] [phone] Eldon Cole DO 02/14/2025 8:30 AM EDT Office Visit [facility] [address] [place] [phone] Mehnaz Park, IAN Encounter for surveillance of contraceptive pills 02/14/2025 Bamboo flowsheet [facility] [address] [place] [phone] Mehnaz Park NP 12/15/2024 Telephone [facility] [address] [place] [phone] Eldon Cole DO from Last 3 Months Family History Medical History Relation Name Comments Diabetes Father high blood pressure Father Relation Name Status Comments Father Social History Tobacco Use Types Packs/Day Years Used Date Smoking Tobacco: Never Tobacco Cessation:Counseling Given: Not Answered PHQ-2 Answer Date Recorded Patient Health Questionnaire-2 Score 0 01/05/2024 Comments Unknown Sex and Gender Information Value Date Recorded Sex Assigned at Not on file Legal Sex Female 11:47 PM EDT Gender Identity Female 06/13/2023 8:37 AM EST Sexual Orientation Not on file Last Filed Vital Signs Vital Sign Reading Time Taken Comments Blood Pressure 130/80 03/16/2025 9:05 AM EDT Pulse - - Temperature - - Respiratory Rate - - Oxygen Saturation - - Inhaled Oxygen Concentration - - Weight 116 kg (255 lb 1.9 oz) 03/16/2025 9:05 AM EDT Height 154.9 cm (5' 1 ) 02/16/2024 11:19 AM EDT Body Mass Index 48.2 02/16/2024 11:19 AM EDT Plan of Treatment Not on file Goals Goal Patient Goal Type Associated Problems Recent Progress Patient-Stated? Author Reminders Care Plan OB Reminders No Open Scheduling, Background Additional Health Concerns Active Problems Noted Date Diagnosed Date OB Reminders 07/23/2023 Insurance [employer] [place]
--- OUTSIDE RECORDS SUMMARY | 2025-03-16 18:56 | XMS_ITS | CCD ---
Author Organization [facility]iniSyme Care Team Providers Care Scale Tester Name Role Phone PAULO ., DR GRIGGS [...] Practitioner Anuja vailable Unavailable Primary Care Provider UnavailLEA Ventura Referring Unavailable MARIELENA HERNANDEZ Attending Unavailable Unavailable Primary Care Provider UnavailMEHNAZ Em Attending Unavailable Medications Current Medications Medication Drug Class(es) Dates Sig (Normalized) Sig (Original) Ethinyl Estradiol / Ferrous fumarate / Norethindrone (1 source) Estrogen Start: 03-16-2025 End: 04-13-2025 take 1 tablet by mouth once daily norethindrone-ethi nyl estradiol-iron (Lo Loestrin Fe) 1 MG-10 MCG / 10 MCG tablet Indications: Well woman exam with routine gynecological exam , control counseling Take 1 tablet by mouth Daily for 28 days Take 1 tablet by mouth daily 28 tablet 11 03/16/2025 04/13/2025 Active Ethinyl Estradiol / Levonorgestrel (4 sources) Progestin, Estrogen, Progestin-containi ng Intrauterine Device Start: 02-14-2025 End: 05-09-2025 take 1 tablet by mouth once daily, then take 1 tablet by mouth once daily levonorgestrel-eth inyl estradiol (Jolessa) 0.15-0.03 MG tablet Indications: Encounter for surveillance of contraceptive pills Take 1 tablet by mouth Daily Take 1 tablet by mouth daily 84 tablet 3 02/14/2025 05/09/2025 Active norethindrone 0.35 mg oral tablet (3 sources) Start: 03-25-2024 End: 03-25-2025 take 1 tablet by mouth once daily norethindrone (Micronor) 0.35 MG tablet Indications: control counseling Take 1 tablet (0.35 mg) by mouth Daily 28 tablet 12 03/25/2024 02/14/2025 Discontinued omeprazole 20 mg delayed release oral capsule (6 sources) Proton Pump Inhibitor Start: 06-20-2023 End: 02-14-2025 take 1 capsule by mouth before mealtime omeprazole (PriLOSEC) [address] capsule Indications: Missed menses Take 1 capsule (20 mg) by mouth in the morning. Take before meals. Do not crush or chew. . 30 capsule 11 06/20/2023 02/14/2025 Discontinued (Therapy completed) take 1 tablet by mouth in the [...] Problem Classification Problem Date Documented Date Episodic/Chronic Contraceptive and procreative management (3 sources) Oral contraception; Translations: [Encounter for surveillance of contraceptive pills] 02-14-2025 Episodic Immunizations and screening for infectious disease (1 [...] W/AND (SUSP) EXPOS COVID-19] Onset: 03-29-2022 Unclassified (6 sources) OB Reminders Onset: 07-23-2023 07-23-2023 Unclassified (1 [...] UA Negative Negative - 4(70) +++ mg/dL [facility] Blood, UA Negative Negative - 50 Francis/mcL [facility] Clarity, UA Clear [facility] Color, UA Yellow [facility] Glucose, UA Negative Negative - 2000(110) ++++ mg/dL [facility] Interpretation and review of laboratory results Abnormal [facility] Ketones, UA Negative Negative - 160(16) ++++ mg/dL [facility] Leukocytes, UA Negative Negative - 500+++ Shravan/mcL [facility] Nitrite, UA Negative Negative - Positive [facility] pH, UA 6.0 5 - 9 [facility] Protein, UA Trace Negative - 2000(20) ++++ mg/dL [facility] Spec Grav, UA 1.030 1 - 1.03 [facility] Urobilinogen, UA 0.2 0.2 - 12 mg/dL [facility] AFP Single Marker Scrn, Mate rnal, Serumon 07-26-2023 Ms Alpha-Fetoprotein Negative [facility] Free Cell DNAon 2022 Free Cell Dna LOW RISK [facility] CBC without diffon Hematocrit (Bld) [Volume fraction] 38.7 % [facility] Hemoglobin (Bld) [Mass/Vol] 12.0 g/dL [facility] Platelets (Bld) [#/Vol] 365 10*3/uL [facility] HIV 1&2 AB/AG Screen (P24 AG )on 06-20-2023 HIV 1&2 AB/AG Non-Reactive [facility] Hepatitis B surface antigeno n 06-20-2023 Hepatitis B Surface Antigen Negative [facility] Hepatitis C(HCV) Ab w/ Refle x to PCRon 06-20-2023 HCV Ab Ql (S) Non-Reactive [facility] No Panel InformationOrdered By: Nicky Miles on 06-20-2023 [facility] Rubella IGG immune statuson 06-20-2023 Rubella immune IgG 2.23 IMMUNE [facility] Syphilis Total(Unknown Syphi lis Status)Ordered By: Nicky Miles on 06-20-2023 Syphilis Non-Reactive [facility] TSHon 06-20-2023 Thyroid Stimulating (3Rd Generation) Hormone/ Tsh 0.708 [facility] PAP ACOG PANEL 2: 21 to 29on 11-20-2022 . . [facility] Comment on above: Performed By: #### [id number] #### [facility] [address] [place] [address] Dr. Homero Damon Age Gdln ACOG Testing 21- [facility] Comment on above: Performed By: #### [id number] #### [facility] [address] [place] [address] Dr. Homero Damon DIAGNOSIS: Comment [facility] Comment on above: Result Comment: NEGA TIVE FOR INTRAEPITHELIAL LESION OR MALIGNANCY. Performed By: #### [id number] #### [facility] [address] [place] [address] Dr. Homero Damon Methodology: Comment [facility] Comment on above: Result Comment: This liquid based ThinPrep(R) pap test was screened with the use of an image guided system. Performed By: #### [id number] #### [facility] [address] [place] [address] Dr. Homero Damon Note: Comment [facility] Comment on above: Result Comment: The Pap smear is a screening test designed to aid in the detection of premalignant and malignant conditions of the uterine cervix. It is not a diagnostic procedure and should not be used as the sole means of detecting cervical cancer. Both false-positive and false-negative reports do occur. . Performed By: #### [id number] #### [facility] [address] [place] [address] Dr. Homero Damon Performed by: Comment Normal [facility] Comment on above: Result Comment: Haris Alexis, Propeller Inspector (ASCP) Performed By: #### [id number] #### [facility] [address] [place] [address] Dr. Homero Damon Reflex Criteria: Comment Normal [facility] Comment on above: Result Comment: The HPV DNA reflex criteria were not met with this specimen result therefore, no HPV testing was performed. . Performed By: #### [id number] #### [facility] [address] [place] [address] Dr. Homero Damon Specimen adequacy: Comment Normal [facility] Comment on above: Result Comment: Sati sfactory for evaluation. Endocervical and/or squamous metaplastic cells (endocervical component) are present. Performed By: #### [id number] #### [facility] [address] [place] [address] Dr. Homero Damon CANNABINOID (THC) CONFIRMATI ON, URINEon 03-19-2022 Cannabinoid Positive Abnormal [facility] Comment on above: Performed By: #### T HCCONF #### [facility] [address] [place] [address] Dr. Homero Damon Carboxy THC GC/MS Conf 47 ng/mL Normal Cutoff=10 Th [facility] Comment on above: Performed By: #### T HCCONF #### [facility] [address] [place] [address] Dr. Homero Damon CBC AUTO DIFFon 03-15-2022 BASO # 0.0 103/ul Normal 0.0-0.1 [facility] Comment on above: Performed By: #### C BC #### [facility] [address] [place] [address] Dr. Homero Damon Basophils/100 WBC (Bld) 0.2 % Normal 0.2-2.0 [facility] Comment on above: Performed By: #### C BC #### [facility] [address] [place] [address] Dr. Homero Damon EO # 0.2 103/ul Normal 0.0-0.7 [facility] Comment on above: Performed By: #### C BC #### [facility] [address] [place] [address] Dr. Homero Damon Eosinophils/100 WBC (Bld) 1.5 % Normal 0.9-7.0 [facility] Comment on above: Performed By: #### C BC #### [facility] [address] [place] [address] Dr. Homero Damon Erythrocyte distribution width (RBC) [Ratio] 16.1 % Critically high 11.0-15.0 [facility] Comment on above: Performed By: #### C BC #### [facility] [address] [place] [address] Dr. Homero Damon Hematocrit (Bld) [Volume fraction] 32.7 % Critically low 36.0-48.0 [facility] Comment on above: Performed By: #### C BC #### [facility] [address] [place] [address] Dr. Homero Damon Hemoglobin (Bld) [Mass/Vol] 9.7 g/dL Critically low 12.0-16.0 [facility] Comment on above: Performed By: #### C BC #### [facility] [address] [place] [address] Dr. Homero Damon IG # 0.04 10e3/ul Critically high 0.00-0.03 [facility] Comment on above: Performed By: #### C BC #### [facility] [address] [place] [address] Dr. Homero Damon IG % 0.4 % Normal 0.0-0.5 [facility] Comment on above: Performed By: #### C BC #### [facility] [address] [place] [address] Dr. Homero Damon LYMPH # 3.5 103/ul Normal 1.2-3.8 [facility] Comment on above: Performed By: #### C BC #### [facility] [address] [address] [address] Homero Damon Lymphocytes/100 WBC (Bld) 32.9 % Normal 20.5-60.0 [facility] Comment on above: Performed By: #### C BC #### [facility] [address] [address] [address] Homero Damon MANUAL DIFF REQ NO Normal [facility] Comment on above: Performed By: #### C BC #### [facility] [address] [place] [address] Dr. Homero Damon MCH (RBC) [Entitic mass] 23.0 pg Critically low 26.7-34.0 [facility] Comment on above: Performed By: #### C BC #### [facility] [address] [place] [address] Dr. Homero Damon MCHC (RBC) [Mass/Vol] 29.7 g/dL Critically low 29.9-35.2 [facility] Comment on above: Performed By: #### C BC #### [facility] [address] [place] [address] Dr. Homero Damon MCV (RBC) [Entitic vol] 77.7 fL Critically low 81.0-99.0 [facility] Comment on above: Performed By: #### C BC #### [facility] [address] [place] [address] Dr. Homero Damon MONO # 0.8 103/ul Normal 0.3-0.8 [facility] Comment on above: Performed By: #### C BC #### [facility] [address] [place] [address] Dr. Homero Damon Monocytes/100 WBC (Bld) 7.1 % Normal 1.7-12.0 [facility] Comment on above: Performed By: #### C BC #### [facility] [address] [place] [address] Dr. Homero Damon NEUT # 6.1 103/ul Normal 1.4-6.5 [facility] Comment on above: Performed By: #### C BC #### [facility] [address] [place] [address] Dr. Homero Damon Neutrophils/100 WBC (Bld) 57.9 % Normal 43.0-75.0 [facility] Comment on above: Performed By: #### C BC #### [facility] [address] [place] [address] Dr. Homero Damon Platelet mean volume (Bld) [Entitic vol] 11.0 fL Normal 9.5-13.5 [facility] Comment on above: Performed By: #### C BC #### [facility] [address] [place] [address] Dr. Homero Damon PLT 253 103/ul Normal 150-450 [facility] Comment on above: Performed By: #### C BC #### [facility] [address] [place] [address] Dr. Homero Damon RBC 4.21 106/ul Normal 4.20-5.40 [facility] Comment on above: Performed By: #### C BC #### [facility] [address] [place] [address] Dr. Homero Damon WBC 10.6 103/ul Normal 4.0-11.0 [facility] Comment on above: Performed By: #### C BC #### [facility] [address] [place] [address] Dr. Homero Damon CBC AUTO DIFFon 03-13-2022 BASO # 0.0 103/ul Normal 0.0-0.1 [facility] Comment on above: Performed By: #### T HCCONF #### [facility] [address] [place] [address] Dr. Homero Damon Basophils/100 WBC (Bld) 0.3 % Normal 0.2-2.0 [facility] Comment on above: Performed By: #### T HCCONF #### [facility] [address] [place] [address] Dr. Homero Damon EO # 0.0 103/ul Normal 0.0-0.7 [facility] Comment on above: Performed By: #### T HCCONF #### [facility] [address] [place] [address] Dr. Homero Damon Eosinophils/100 WBC (Bld) 0.2 % Critically low 0.9-7.0 [facility] Comment on above: Performed By: #### T HCCONF #### [facility] [address] [place] [address] Dr. Homero Damon Erythrocyte distribution width (RBC) [Ratio] 16.0 % Critically high 11.0-15.0 [facility] Comment on above: Performed By: #### T HCCONF #### [facility] [address] [place] [address] Dr. Homero Damon Hematocrit (Bld) [Volume fraction] 35.3 % Critically low 36.0-48.0 [facility] Comment on above: Performed By: #### T HCCONF #### [facility] [address] [place] [address] Dr. Homero Damon Hemoglobin (Bld) [Mass/Vol] 11.0 g/dL Critically low 12.0-16.0 [facility] Comment on above: Performed By: #### T HCCONF #### [facility] [address] [place] [address] Dr. Homero Damon IG # 0.04 10e3/ul Critically high 0.00-0.03 [facility] Comment on above: Performed By: #### T HCCONF #### [facility] [address] [place] [address] Dr. Homero Damon IG % 0.4 % Normal 0.0-0.5 [facility] Comment on above: Performed By: #### T HCCONF #### [facility] [address] [place] [address] Dr. Homero Damon LYMPH # 2.5 103/ul Normal 1.2-3.8 [facility] Comment on above: Performed By: #### T HCCONF #### [facility] [address] [place] [address] Dr. Homeor Damon Lymphocytes/100 WBC (Bld) 26.4 % Normal 20.5-60.0 [facility] Comment on above: Performed By: #### T HCCONF #### [facility] [address] [place] [address] Dr. Homero Damon MANUAL DIFF REQ NO Normal [facility] Comment on above: Performed By: #### T HCCONF #### [facility] [address] [place] [address] Dr. Homero Damon MCH (RBC) [Entitic mass] 23.5 pg Critically low 26.7-34.0 [facility] Comment on above: Performed By: #### T HCCONF #### [facility] [address] [place] [address] Dr. Homero Damon MCHC (RBC) [Mass/Vol] 31.2 g/dL Normal 29.9-35.2 [facility] Comment on above: Performed By: #### T HCCONF #### [facility] [address] [place] [address] Dr. Homero Damon MCV (RBC) [Entitic vol] 75.4 fL Critically low 81.0-99.0 [facility] Comment on above: Performed By: #### T HCCONF #### [facility] [address] [place] [address] Dr. Homero Damon MONO # 0.6 103/ul Normal 0.3-0.8 [facility] Comment on above: Performed By: #### T HCCONF #### [facility] [address] [place] [address] Dr. Homero Damon Monocytes/100 WBC (Bld) 6.4 % Normal 1.7-12.0 [facility] Comment on above: Performed By: #### T HCCONF #### [facility] [address] [place] [address] Dr. Homero Damon NEUT # 6.4 103/ul Normal 1.4-6.5 [facility] Comment on above: Performed By: #### T HCCONF #### [facility] [address] [place] [address] Dr. Homero Damon Neutrophils/100 WBC (Bld) 66.3 % Normal 43.0-75.0 [facility] Comment on above: Performed By: #### T HCCONF #### [facility] [address] [address] [address] Homero Damon Platelet mean volume (Bld) [Entitic vol] 11.0 fL Normal 9.5-13.5 [facility] Comment on above: Performed By: #### T HCCONF #### [facility] [address] [address] [address] Homero Damon PLT 312 103/ul Normal 150-450 [facility] Comment on above: Performed By: #### T HCCONF #### [facility] [address] [address] [address] Homero Damon RBC 4.68 106/ul Normal 4.20-5.40 [facility] Comment on above: Performed By: #### T HCCONF #### [facility] [address] [address] [address] Homero Damon WBC 9.6 103/ul Normal 4.0-11.0 [facility] Comment on above: Performed By: #### T HCCONF #### [facility] [address] [address] [address] Homero Damon Covid-19 PCR ([facility])on 02-13 SARS-CoV-2 (COVID-19) RNA LORRAINE+probe Ql (Unsp spec) Not detected Normal NOT DETECTED [facility] Comment on above: Result Comment: When [...] for this test is supported by the [place] of Health and Human Service's declaration that [...] used). Performed By: #### C VDTBH #### [facility] [address] [place] [address] Dr. Homero Damon DRUG SCREEN RAPID (URINE)on 03-13-2022 AMP Negative Normal NEGATIVE [facility] Comment on above: Performed By: #### D RUGRPD #### [facility] [address] [place] [address] Dr. Homero Damon BAR Negative Normal NEGATIVE [facility] Comment on above: Performed By: #### D RUGRPD #### [facility] [address] [place] [address] Dr. Homero Damon BUP Negative Normal NEGATIVE [facility] Comment on above: Performed By: #### D RUGRPD #### [facility] [address] [place] [address] Dr. Homero Damon BZO Negative Normal NEGATIVE [facility] Comment on above: Performed By: #### D RUGRPD #### [facility] [address] [place] [address] Dr. Homero Damon MADHURI Negative Normal NEGATIVE [facility] Comment on above: Performed By: #### D RUGRPD #### [facility] [address] [place] [address] Dr. Homero Damon CUT-OFFS SEE BELOW Normal [facility] Comment on above: Result Comment: AMP [...] ng/mL Performed By: #### D RUGRPD #### [facility] [address] [address] [address] Homero Damon DRUG CUT HEADER DRUG CLASS TEST SYSTEM CUT-OFF CONCENTRATIONS ARE FOLLOWS: Normal [facility] Comment on above: Performed By: #### D RUGRPD #### [facility] [address] [address] [address] Homero Damon mAMP Negative Normal NEGATIVE [facility] Comment on above: Performed By: #### D RUGRPD #### [facility] [address] [address] [address] Homero Damon MTD Negative Normal NEGATIVE [facility] Comment on above: Performed By: #### D RUGRPD #### [facility] [address] [address] [address] Homero Damon OPI Negative Normal NEGATIVE [facility] Comment on above: Performed By: #### D RUGRPD #### [facility] [address] [place] [address] Dr. Homero Damon OXY Negative Normal NEGATIVE [facility] Comment on above: Performed By: #### D RUGRPD #### [facility] [address] [address] [address] Homero Damon PCP Negative Normal NEGATIVE [facility] Comment on above: Performed By: #### D RUGRPD #### [facility] [address] [place] [address] Dr. Homero Damon PPX Negative Normal NEGATIVE [facility] Comment on above: Performed By: #### D RUGRPD #### [facility] [address] [address] [address] Homero Damon TCA Negative Normal NEGATIVE [facility] Comment on above: Performed By: #### D RUGRPD #### [facility] [address] [address] [address] Homero Damon THC Positive Abnormal NEGATIVE [facility] Comment on above: Performed By: #### D RUGRPD #### [facility] [address] [place] [address] Dr. Homero Damon TYPE AND SCREENon 03-13-2022 TYPE AND SCREEN Negative Normal [facility] Comment on above: Performed By: #### T HCCONF #### [facility] [address] [address] [address] Homero Damon UA (CLEAN/CATCH) CARGO MATE/MICRO I F IND.on 03-10-2022 Bilirubin Ql (U) Negative Normal NEGATIVE [facility] Comment on above: Performed By: #### U ACSIND #### [facility] [address] [address] [address] Homero Damon Clarity (U) CLEAR Normal CLEAR [facility] Comment on above: Performed By: #### U ACSIND #### [facility] [address] [address] [address] Homero Damon Color (U) YELLOW Normal YELLOW [facility] Comment on above: Performed By: #### U ACSIND #### [facility] [address] [place] [address] Dr. Homero Damon Glucose Ql (U) Negative Normal NEGATIVE [facility] Comment on above: Performed By: #### U ACSIND #### [facility] [address] [address] [address] Homero Damon Hemoglobin Ql (U) Negative Normal NEGATIVE [facility] Comment on above: Performed By: #### U ACSIND #### [facility] [address] [address] [address] Homero Damon Ketones Ql (U) Negative Normal NEGATIVE [facility] Comment on above: Performed By: #### U ACSIND #### [facility] [address] [address] [address] Homero Damon LEUKOCYTES Negative Normal NEGATIVE [facility] Comment on above: Performed By: #### U ACSIND #### [facility] [address] [address] [address] Homero Damon Nitrite Ql (U) Negative Normal NEGATIVE [facility] Comment on above: Performed By: #### U ACSIND #### [facility] [address] [place] [address] Dr. Homero Damon pH (U) 6.0 [pH] Normal 5-9 [facility] Comment on above: Performed By: #### U ACSIND #### [facility] [address] [address] [address] Homero Damon SPEC GRAVITY 1.025 Normal 1.005-<=1.025 [facility] Comment on above: Performed By: #### U ACSIND #### [facility] [address] [address] [address] Homero Damon UA PROTEIN Negative Normal NEGATIVE/ TRACE [facility] Comment on above: Performed By: #### U ACSIND #### [facility] [address] [address] [address] Homero Damon UR MICRO IND NOT INDICATED Normal [facility] Comment on above: Performed By: #### U ACSIND #### [facility] [address] [place] [address] Dr. Homero Damon Urobilinogen Qn (U) 1.0 {Saad'U}/dL Normal 0.2 - 1. 0 [facility] Comment on above: Performed By: #### U ACSIND #### [facility] [address] [place] [address] Dr. Homero Damon GROUP B STREP CULTUREon 02-11 S. agalactiae Ag Ql (Unsp spec) Culture Observations: Called Group B Strep to Millie Armando, Assembly Manager on 02/25 @ 0917 Isolate 1 Streptococcus agalactiae Moderate growth of ORGANISM 1 Streptococcus agalactiae ANTIBIOTIC M.I.C RX STATUS Benzylpenicillin <=0.06 S F Ampicillin <=0.25 S F Cefotaxime <=0.12 S F Ceftriaxone <=0.12 S F Levofloxacin 0.5 S F Erythromycin >=8 R F Clindamycin >=1 R F Linezolid <=2 S F Vancomycin 0.5 S F Tetracycline >=16 R F Normal [facility] Comment on above: Performed By: #### T HCCONF #### [facility] [address] [place] [address] Dr. Homero Damon CULTURE URINEon 02-23-2022 CULTURE [...] Trimethoprim/Sulfame thoxazole <=20 S F Normal [facility] Comment on above: Performed By: #### U RCX #### [facility] [address] [place] [address] Dr. Homero Damon UA RANDOM W/MICROSCOPICon BACTERIA LARGE Abnormal NONE SEEN [facility] [facility] Comment on above: Performed By: #### U AMIC #### [facility] [address] [place] [address] Dr. Homero Damon Bilirubin Ql (U) Negative Normal NEGATIVE [facility] Comment on above: Performed By: #### U AMIC #### [facility] [address] [place] [address] Dr. Homero Damon CAST NONE SEEN Normal NONE SEEN [facility] Comment on above: Performed By: #### U AMIC #### [facility] [address] [place] [address] Dr. Homero Damon Clarity (U) CLEAR Normal CLEAR [facility] Comment on above: Performed By: #### U AMIC #### [facility] [address] [place] [address] Dr. Homero Damon Color (U) LT. YELLOW Normal YELLOW [facility] Comment on above: Performed By: #### U AMIC #### [facility] [address] [place] [address] Dr. Homero Damon Crystals LM Nom (Urine sed) NONE SEEN Normal NONE SEEN [facility] Comment on above: Performed By: #### U AMIC #### [facility] [address] [place] [address] Dr. Homero Damon Epithelial cells LM Ql (Urine sed) FEW Abnormal NONE SEEN /RARE [facility] Comment on above: Performed By: #### U AMIC #### [facility] [address] [address] [address] Homero Damon Glucose Ql (U) Negative Normal NEGATIVE The [facility] Comment on above: Performed By: #### U AMIC #### [facility] [address] [address] [address] Homero Damon Hemoglobin Ql (U) Negative Normal NEGATIVE The [facility] Comment on above: Performed By: #### U AMIC #### [facility] [address] [address] [address] Homero Damon Ketones Ql (U) TRACE Abnormal NEGATIVE [facility] Comment on above: Performed By: #### U AMIC #### [facility] [address] [place] [address] Dr. Homero Damon LEUKOCYTES TRACE Abnormal NEGATIVE [facility] Comment on above: Performed By: #### U AMIC #### [facility] [address] [address] [address] Homero Damon MUCOUS NONE SEEN Normal NONE SEEN [facility] Comment on above: Performed By: #### U AMIC #### [facility] [address] [address] [address] Homero Damon Nitrite Ql (U) Negative Normal NEGATIVE [facility] Comment on above: Performed By: #### U AMIC #### [facility] [address] [place] [address] Dr. Homero Damon pH (U) 6.0 [pH] Normal 5-9 [facility] Comment on above: Performed By: #### U AMIC #### [facility] [address] [address] [address] Homero Damon RBC NONE SEEN Abnormal 0-2 [facility] Comment on above: Performed By: #### U AMIC #### [facility] [address] [place] [address] Dr. Homero Damon SPEC GRAVITY 1.025 Normal 1.005-<=1.025 The [facility] Comment on above: Performed By: #### U AMIC #### [facility] [address] [address] [address] Homero Damon UA PROTEIN Negative Normal NEGATIVE/ TRACE [facility] Comment on above: Performed By: #### U AMIC #### [facility] [address] [place] [address] Dr. Homero Damon Urobilinogen Qn (U) 0.2 {Saad'U}/dL Normal 0.2 - 1. 0 [facility] Comment on above: Performed By: #### U AMIC #### [facility] [address] [address] [address] Homero Damon WBC 5-10 Abnormal NONE SEEN [facility] Comment on above: Performed By: #### U AMIC #### [facility] [address] [place] [address] Dr. Homero Damon GLUCOSE - 1HRon 12-12-2021 Glucose [Mass/Vol] 128 mg/dL Critically high 74-106 T [facility] Comment on above: Performed By: #### G LU1HR #### [facility] [address] [place] [address] Dr. Homero Damon HEMOGRAM AND PLATELon 2021 Hematocrit (Bld) [Volume fraction] 38.8 % Normal 36.0-48.0 [facility] Comment on above: Performed By: #### H H #### [facility] [address] [place] [address] Dr. Homero Damon Hemoglobin (Bld) [Mass/Vol] 12.3 g/dL Normal 12.0-16.0 [facility] Comment on above: Performed By: #### H H #### [facility] [address] [place] [address] Dr. Homero Damon MCH (RBC) [Entitic mass] 25.8 pg Critically low 26.7-34.0 [facility] Comment on above: Performed By: #### H H #### [facility] [address] [place] [address] Dr. Homero Damon MCHC (RBC) [Mass/Vol] 31.7 g/dL Normal 29.9-35.2 [facility] Comment on above: Performed By: #### H H #### [facility] [address] [place] [address] Dr. Homero Damon MCV (RBC) [Entitic vol] 81.3 fL Normal 81.0-99.0 [facility] Comment on above: Performed By: #### H H #### [facility] [address] [place] [address] Dr. Homero Damon PLT 304 103/ul Normal 150-450 [facility] Comment on above: Performed By: #### H H #### [facility] [address] [place] [address] Dr. Homero Damon RBC 4.77 106/ul Normal 4.20-5.40 [facility] Comment on above: Performed By: #### H H #### [facility] [address] [place] [address] Dr. Homero Damon WBC 9.9 103/ul Normal 4.0-11.0 [facility] Comment on above: Performed By: #### H H #### [facility] [address] [place] [address] Dr. Homero Damon CULTURE URINEon 12-06-2021 CULTURE [...] Trimethoprim/Sulfame thoxazole <=20 S F Normal [facility] Comment on above: Performed By: #### T HCCONF #### [facility] [address] [place] [address] Dr. Homero Damon Vital Signs Date Time Vital Sign Value Performing Clinician Faci lity 03-16-2025 09:05-0400 Body mass index (BMI) [Ratio] 48.2 kg/m2 Mehnaz Rubioerly CONE OPERATOR Work Phone: [facility] 03-16-2025 09:05-0400 Body weight 115.72 kg Mehnaz Rubioerly CONE OPERATOR Work Phone: [facility] 03-16-2025 09:05-0400 Diastolic blood pressure 80 mm[Hg] Mehnaz Rubioerly CONE OPERATOR Work Phone: [facility] 03-16-2025 09:05-0400 Systolic blood pressure 130 mm[Hg] Mehnaz Rubioerly CONE OPERATOR Work Phone: [facility] 09-03-2023 10:39-0500 Body height 160 cm Marielena Hernandez MD Work Phone: [facility] 09-03-2023 10:39-0500 Body mass index (BMI) [Ratio] 41.45 kg/m2 Marielena Hernandez MD Work Phone: [facility] 09-03-2023 10:39-0500 Body weight 106.14 kg Marielena Hernandez MD Work Phone: [facility] 09-03-2023 10:39-0500 Diastolic blood pressure 88 mm[Hg] Marielena Hernandez MD Work Phone: [facility] 09-03-2023 10:39-0500 Heart rate 98 /min Marielena Hernandez MD Work Phone: [facility] 09-03-2023 10:39-0500 Systolic blood pressure 123 mm[Hg] Marielena Hernandez MD Work Phone: [facility] 08-21-2023 10:31-0500 Body mass index (BMI) [Ratio] 43.48 kg/m2 Trisha CASTELLANOS Work Phone: [facility] 08-21-2023 10:31-0500 Body weight 104.38 kg Trisha CASTELLANOS Work Phone: [facility] 08-21-2023 10:31-0500 Diastolic blood pressure 60 mm[Hg] Trisha CASTELLANOS Work Phone: [facility] 08-21-2023 10:31-0500 Systolic blood pressure 118 mm[Hg] Trisha CASTELLANOS Work Phone: [facility] Encounters Encounter Date Encounter Type Care Provider Facility Start: 03-16-2025 End: 03-16-2025 Bamboo flowsheet Mehnaz Park CONE OPERATOR Work Phone: [facility] Start: 03-16-2025 End: 03-16-2025 Bamboo flowsheet Mehnaz Park CONE OPERATOR Work Phone: [facility] Start: 03-16-2025 End: 03-16-2025 Patient encounter procedure Mehnaz Park CONE OPERATOR Work Phone: [facility] Work Phone: Start: 03-16-2025 End: 03-16-2025 Periodic preventive med est patient 18-39 yrs Mehnaz Park CONE OPERATOR Work Phone: [facility] Comment on above: control counse ely (Primary Dx); Well woman exam with routine gynecological exam Start: 02-14-2025 End: 02-14-2025 Bamboo flowsheet Mehnaz Park CONE OPERATOR Work Phone: [facility] Start: 02-14-2025 End: 02-14-2025 Bamboo flowsheet Mehnaz Park CONE OPERATOR Work Phone: [facility] Start: 02-14-2025 End: 02-14-2025 Office outpatient visit 15 minutes Mehnaz Park CONE OPERATOR Work Phone: [facility] Comment on above: Encounter for survei llance of contraceptive pills Start: 02-14-2025 End: 02-14-2025 ambulatory MEHNAZ PARK Not Available Start: 09-03-2023 End: 09-03-2023 ambulatory [facility] Start: 09-03-2023 End: 09-03-2023 Office outpatient visit 10 minutes Marielena Hernandez MD Work Phone: [facility] [place] Comment on above: 22 weeks gestation o f (Primary Dx); Severe obesity with alveolar hypoventilation affecting , antepartum (CMS-HCC) Start: 08-21-2023 End: 08-21-2023 Office outpatient visit 15 minutes Trisha CASTELLANOS Work Phone: [facility] Comment on above: Second trimester pre gnancy; Diabetes mellitus screening Start: 08-20-2023 Chart abstracting Marielena Hernandez MD Work Phone: [facility] Start: 11-13-2022 End: 11-13-[address] INDU [...] Treatment Date Care Activity Detail Author Start: 03-16-2025 End: 03-16-2025 Patient encounter procedure ZOE ANGUIANO Comment on above: Arrived Start: 02-14-2025 End: 02-14-2025 Patient encounter procedure 02/14/2025 8:30 AM EDT Procedure Visit ZOE ANGUIANO [address] [id number] Mehnaz Park, CONE OPERATOR [address] [place] [id number] Arrived ZOE ANGUIANO Comment on above: Arrived Start: 10-27-2023 DTaP,Tdap and Td Vaccines (8 - Td or Tdap) DTaP,Tdap and Td Vaccines (8 - Td or Tdap) [facility] Start: 09-17-2023 End: 09-17-2023 Patient encounter procedure 09/17/2023 10:50 AM EST Routine [facility] [address] [id number] Lea Cole DO [address] [place] [address] [facility] Start: 09-03-2023 End: 09-03-2023 Patient encounter procedure [facility] Start: 08-21-2023 End: 08-21-2024 CBC panel - Blood by Automated count CBC Lab Routine Diabetes mellitus screening Expected: 08/21/2023 (Approximate), Expires: 08/21/2024 [facility] Work Phone: Comment on above: Expected: 08/21/2023 (Approximate), Expires: 08/21/2024 Start: 08-21-2023 End: 08-21-2024 Measurement of glucose 1 hour after glucose challenge for glucose tolerance test Glucose tolerance, 1 hour Lab Routine Diabetes mellitus screening Expected: 08/21/2023 (Approximate), Expires: 08/21/2024 [facility] Comment on above: Expected: 08/21/2023 (Approximate), Expires: 08/21/2024 Start: 03-14-2023 Influenza vaccination Influenza Vacc ine [facility] Start: 2021 Screening for malignant neoplasm of cervix Pap Smear [facility] Start: 2019 DTaP,Tdap and Td Vaccines (1 - Tdap) DTaP,Tdap and Td Vaccines (1 - Tdap) [facility] Start: 2018 Adult BMI Follow Up Plan Adult BMI Follow Up Plan [facility] Start: 2018 Adult BMI Screening Adult BMI Screen ing [facility] Start: 2012 Depression Screening Depression Scre ening [facility] Start: 2012 Tobacco Screening Tobacco Screening [facility] Cytology Cervical or vaginal smear or scraping study Pap Smear Pathology and Cytology Routine Well woman exam with routine gynecological exam Ordered: 03/16/2025 [facility] Work Phone: Comment on above: Ordered: 03/16/2025 Immunizations Immunization Date Immunization Notes Care Provider Dioni noe 06-03-2013 influenza virus vaccine, unspecified formulation Marielena Hernandez MD Work Phone: [facility] Payers Date Payer Category Payer Medicaid [id number] 2022 Medicaid [id number] 2022 Medicaid [id number] 2000 Unknown [id number] 2.16.84 [id number] 2000 Unknown [id number] 2.16.84 [id number] 2000 Unknown [id number] 2.16.84 [id number] 2000 Unknown [id number] 2.16.84 [id number] 2000 Unknown [id number] 2.16.84 [id number] 2000 Unknown [id number] 2.16.84 [id number] 2000 Unknown [id number] 2.16.84 [id number] 2000 Unknown [id number] 2.16.8 [id number] 2000 Unknown [id number] 2.16.8 [id number] 2000 Unknown [id number] 2.16.8 [id number] 1959 Unknown [id number] Social History Date Type Detail Facility Start: 07-02-2023 End: 09-03-2023 Tobacco smoking status NHIS Never smoked tobacco [facility] Start: 07-02-2023 End: 01-05-2024 History of Social function [facility] Start: 07-02-2023 End: 01-05-2024 Tobacco use panel [facility] Start: 04-14-2023 [facility] Start: 2000 Sex Assigned At Not on file [facility] Start: 06-13-2023 Gender identity Identifies as female gender (finding) [facility] Start: 04-08-2017 End: 09-03-2023 Tobacco use and exposure Smokeless tobacco non-user [facility] Start: 08-20-2023 End: 09-03-2023 Alcohol intake Current non-drinker of alcohol (finding) [facility] Childcare Unknown [facility] Goals Date Patient Goal Desired Activity /State Personal health goal History of Present illness Narrative 03-16-2025 Mehnaz Park NP - 03/16/2025 9:00 AM EDT Note Date & Type Note Facility 03-16-2025 History of Presen t illness Narrative Reason for Appointment: Patient ID: Juliette Carlson is a 24 y.o. female who presents for Well Women Visit Patient presents today for Annual Exam. MEDICATIONS Current Outpatient Medications Medication Instructions levonorgestrel-ethinyl estradiol (Jolessa) 0.15-0.03 MG tablet 1 tablet, Oral, Daily, Take 1 tablet by mouth daily ALLERGIES No Known Allergies PROBLEMS Active Ambulatory Problems Diagnosis Date Noted No Active Ambulatory Problems Resolved Ambulatory Problems Diagnosis Date Noted No Resolved Ambulatory Problems Past Medical History: Diagnosis Date follow-up ([facility]) HISTORY PAST MEDICAL HISTORY SOCIAL HISTORY Past Medical History: Diagnosis Date follow-up ([facility]) Social History Tobacco Use Smoking status: [...] nursing note reviewed. Exam conducted with a outbound sales executive present. Vitals: Estimated body mass index is 48.2 kg/m as calculated from the following: Height [...] bleeding will discuss Depo Provera and possibly discuss tubal ligation. Documented by Mehnaz Park NP on behalf of: Mehnaz Park NP documented in this encounter [facility] History of Present illness Narrative 02-14-2025 Mehnaz Park NP - 02/14/2025 8:30 AM EDT Note Date & Type Note Facility 02-14-2025 History of Presen t illness Narrative Reason for Appointment: Patient ID: Juliette Carlson is a 24 y.o. female who presents for Contraception (Increase Control) Patient presents today for Acute Visit. MEDICATIONS Current Outpatient Medications Medication Instructions levonorgestrel-ethinyl estradiol (Jolessa) 0.15-0.03 MG tablet 1 tablet, Oral, Daily, Take 1 tablet by mouth daily ALLERGIES No Known Allergies PROBLEMS Active Ambulatory Problems Diagnosis Date Noted No Active Ambulatory Problems Resolved Ambulatory Problems Diagnosis Date Noted No Resolved Ambulatory Problems Past Medical History: Diagnosis Date follow-up ([facility]) HISTORY PAST MEDICAL HISTORY SOCIAL HISTORY Past Medical History: Diagnosis Date follow-up ([facility]) Social History Tobacco Use Smoking status: [...] Constitutional: Appearance: Normal appearance. She is well-developed. Cardiovascular: Rate and Rhythm: Normal rate and [...] nursing note reviewed. Exam conducted with a outbound sales executive present. Vitals: Estimated body mass index is 45.54 kg/m as calculated from the following: Height as of 02/16/24: 5' 1 . Weight as of 02/16/24: 241 lb. BP: No LMP recorded. ASSESSMENT & PLAN ICD-10-CM 1. Encounter for surveillance of contraceptive pills Z30.41 levonorgestrel-ethinyl estradiol (Jolessa) 0.15-0.03 MG tablet Patient presents today to discuss control. She is currently on progesterone only pill and desires tx with estrogen and progesterone now that she is no longer . She would like to trial Jolessa. She will follow up and schedule her yearly well woman exam/PAP. Documented by Mehnaz Park NP on behalf of: Mehnaz Park NP documented in this encounter [facility] History of Present illness Narrative 09-03-2023 Ector [...] Yes Have you been seen here at [facility] in a previous ? No Recent ER visits or hospitalizations? No Bring blood sugar log or meter with you today? (Please bring them with you for every visit at [facility]) N/A Traveled outside the country in [...] TESTS AND ULTRASOUND REPORTS: Referral records and [facility] chart were reviewed Pertinent Ultrasound [...] patient is in complete care of her medication manager. Patient does have ultrasound and office visit scheduled with us. Thank you for allowing me to participate in the care of Juliette Field Aldo. If there any questions please do not hesitate to contact us. Total time spent was 30 minutes: Preparing to see the patient (e.g., review of tests) Obtaining and/or reviewing separately obtained history Performing a medically appropriate examination and/or evaluation Counseling and educating the patient/family/caregiver Referring and communicating with other health district manager primary care sales (not separately reported) Documenting clinical information in the electronic or other health record Marielena Hernandez MD Maternal[facility] [address] [place] [address] [facility], the CDC, and other organizations representing maternal and public health professionals recommend that , , and lactating people and those considering receive the COVID-19 vaccination. Vaccination is the best method to reduce maternal and complications of SARS-CoV-2 infection. This document was created with [employer] technology. Though I make every effort to review the dictation as it is transcribed, on occasion the spoken word can be misinterpreted by the technology leading to inappropriate words, phrases, or sentences. This note is addressed to the requesting provider as a consultation for clinical guidance. Specific medical abbreviations are occasionally used and those are generally approved by the [place]?Board of?Obstetrics and?Gynecology?as well as?[place] s abbreviations. The above plan of care was based solely on the diagnoses for which a consultation was requested. ?More frequent testing may be indicated based on her other medical/obstetrical conditions. The management of other or medical conditions is beyond the scope of requested consultation and will continue to be followed by the primary medication manager or primary care provider. Note to [...] of the practitioner. documented in this encounter [facility] History of Present illness Narrative 08-21-2023 [...] documented in this encounter [facility] Evaluation note Note Date & Type Note Facility Evaluation note Diagnosis Encounter for surveillance of contraceptive pills documented in this encounter [facility] Evaluation note Note Date & Type Note Facility Evaluation note Diagnosis control counseling- Primary Well woman exam with routine gynecological exam Routine gynecological examination documented in this encounter [facility] Healthcare Instructions Note Date & Type Note Facility [...] and content) DATE CREATED AUTHOR 11/20/2022 [facility] DATE CREATED AUTHOR AUTHOR'S ORGANIZ ATION 09/10/2023 [facility] DATE CREATED AUTHOR AUTHOR'S ORGANIZ ATION 02/15/2025 [facility] EPIC Reason for Visit (unrecogniz ed section and content) Reason Comments Routine Visit Reason Comments POSSIBLE CLEFT LIP AND PALATE Reason Comments Contraception Increase Contr ol Reason Comments Well Women Visit FOR RECORDS PERTAINING TO PATIENTS WHO ARE [...] BE BASED ON THE PRIMARY CLINICAL RECORDS. [facility]. provides no warranty or guarantee of the accuracy or completeness of information in this document.
[2025-03-18 18:08] LABS: Age Gdln ACOG Testing Note (.); IGP, rfx Aptima HPV ASCU Note (.)
== END 2025-03-16 14:50 | disposition home or self-care (01) ==
LOC: LAB 14:49
PROVIDERS: Visit Provider Nurse Practitioner Family
DX: Z01.419 Encounter for gynecological examination (general) (routine) without abnormal findings (principal)
CPT/HCPCS: 88175